=== PATIENT | female | born 1935 | race Caucasian/White ===

== ENCOUNTER 2016-05-28 00:50 | Inpatient (IN) | payer OTHER ==
--- NOTE | 2016-05-28 03:23 | PDOC ---
History of Present Illness - General History Source: Patient, Family Exam Limitations: Clinical Condition - History of Present Illness Initial Comments: 05/28/16 04:46 The patient is a 80-year-old female, with a significant past medical history of anxiety, hypertension, hyperlipidemia, Afib(on eliquis), renal insufficiency, UTIs, bakers cyst of knee, and severe arthritis who presents to the emergency department with her son, complaining of generalized weakness for several days. As per son, the patient is prone to UTIs, and her weakness today is similar to that of when she had a UTI approximately 2 years ago. He states the patient has been experiencing flank pain for 3-4 days, which is exacerbated when she needs to urinate, and relieved after urination. The patient denies any associated frequency, urgency, hematuria, or cloudy urine. The son reports the patient was using the bathroom when she fell off her high seat, but was unable to get up on her own. The son denies the patient experienced any head trauma or LOC. As per son, the patient has been having difficulty standing due to osteoarthritis. He reports he has noticed she has been experiencing decreased appetite. The patient reports she is cold, but is warm to touch. In the ED her Tmax is 100.3F. The patient denies cough, headache, or dizziness. The patient denies any nausea, vomiting, diarrhea, or constipation. The patient denies any chest pain, diaphoresis, palpitations, or shortness of breath. The patient's son reports her facial tremor is part of her baseline. Allergies: Penicillins Past Surgical History: None reported. Social History: Former smoker (Quit 1984). Denies alcohol or drug use. PCP: Dr. Oneal ([phone]) <Faraz Olivares - Last Filed: 05/28/16 06:58> <Beth Mehta - Last Filed: 05/29/16 04:27> - General Chief Complaint: Weakness Stated Complaint: WEAKNESS Time Seen by Provider: 05/28/16 03:22 Past History <Faraz Olivares - Last Filed: 05/28/16 06:58> - Past Medical History Cancer: Yes (rt) Cardiac Disorders: Yes GI Disorders: Yes (sbo) HTN: Yes Hypercholesterolemia: Yes Psychiatric Problems: Yes (anxiety) - Surgical History GI Surgery: Yes (resection) - Immunization History Immunization Up to Date: Yes - Psycho/Social/Smoking Cessation Hx Anxiety: No Suicidal Ideation: No Smoking History: Never smoked Have you smoked in the past 12 months: No If you are a former smoker, when did you quit?: 1984 Information on smoking cessation initiated: No Hx Alcohol Use: No Drug/Substance Use Hx: No Substance Use Type: None <Beth Mehta - Last Filed: 05/29/16 04:27> - Past Medical History Allergies/Adverse Reactions: Allergies Allergy/AdvReac Type Severity Reaction Status Date / Time Penicillins Allergy Verified 05/28/16 01:05 Home Medications: Ambulatory Orders Diazepam [Valium] 2 mg PO TID PRN 01/26/14 Acetaminophen [Tylenol Extra Strength] 1,000 mg PO BID PRN 01/11/15 Clonidine HCl [Catapres -] 0.1 mg PO BID 01/11/15 Rosuvastatin [Crestor -] 5 mg PO DAILY 01/11/15 Digoxin [Lanoxin -] 0.125 mg PO DAILY tablet 01/16/15 Magnesium Oxide [Mag-Ox -] 400 mg PO BID tablet 01/16/15 Metoprolol Succinate [Toprol XL -] 50 mg PO DAILY tab.sr.24h 01/16/15 Multivitamins [Multivit ([facility] Formulary)] 1 tab PO DAILY tab 01/16/15 Apixaban [Eliquis] 2.5 mg PO BID 05/28/16 Citalopram Hydrobromide [Celexa -] 10 mg PO DAILY 05/28/16 Clonazepam [Klonopin -] 0.5 mg PO TID 05/28/16 Clonidine HCl 0.1 mg PO BID 05/28/16 Review of Systems - Review of Systems Able to Perform ROS?: Yes Comments:: 05/28/16 04:47 GENERAL/CONSTITUTIONAL: +Fever, +chills +weakness. HEAD, EYES, EARS, NOSE AND THROAT: No change in vision. No ear pain or discharge. No sore throat. CARDIOVASCULAR: No chest pain or shortness of breath. RESPIRATORY: No cough, wheezing, or hemoptysis. GASTROINTESTINAL: No nausea, vomiting, diarrhea or constipation. GENITOURINARY: +Flank pain. No dysuria, frequency, or change in urination. MUSCULOSKELETAL: No joint or muscle swelling or pain. No neck or back pain. SKIN: No rash NEUROLOGIC: +Difficulty walking. No headache, vertigo, or loss of consciousness. ENDOCRINE: No increased thirst. No abnormal weight change. HEMATOLOGIC/LYMPHATIC: No anemia, easy bleeding, or history of blood clots. ALLERGIC/IMMUNOLOGIC: No hives or skin allergy. <Faraz Olivares - Last Filed: 05/28/16 06:58> *Physical Exam - Vital Signs Last Vital Signs Temp Pulse Resp BP Pulse Ox 100.3 F H 83 14 112/48 94 L 05/28/16 03:44 05/28/16 01:05 05/28/16 01:05 05/28/16 01:05 05/28/16 01:05 - Physical Exam Comments: 05/28/16 04:58 GENERAL: Awake, alert, and fully oriented, in no acute distress HEAD: +Oscillatory jaw tremor. No signs of trauma EYES: PERRLA, EOMI, sclera anicteric, conjunctiva clear ENT: Auricles normal inspection, hearing grossly normal, nares patent, oropharynx clear without exudates. Moist mucosa NECK: Normal ROM, supple, no lymphadenopathy, JVD, or masses LUNGS: Breath sounds equal, clear to auscultation bilaterally. No wheezes, and no crackles HEART: Regular rate and rhythm, normal S1 and S2, no murmurs, rubs or gallops ABDOMEN: +Stool in belly. Nontender. No guarding, no rebound. No masses EXTREMITIES: +Left lower leg cellulitis. Bilateral pitting edema in the legs up to the calves. +Severe osteoarthritis in the knees bilaterally. No clubbing or cyanosis. NEUROLOGICAL: Cranial nerves II through XII grossly intact. Normal speech, normal gait SKIN: Warm, Dry, normal turgor, no rashes or lesions noted. <Faraz Olivares - Last Filed: 05/28/16 06:58> - Vital Signs Last Vital Signs Temp Pulse Resp BP Pulse Ox 98.7 F 83 14 112/48 94 L 05/28/16 01:05 05/28/16 01:05 05/28/16 01:05 05/28/16 01:05 05/28/16 01:05 <Beth Mehta - Last Filed: 05/29/16 04:27> Heart Score/ECG Review - ECG Impressions Comment:: 05/28/16 06:58 Vent Rate: 90 bpm IMPRESSION: Undetermined sinus rhythm. Possible anterior infarct. <Faraz Olivares - Last Filed: 05/28/16 06:58> ED Treatment Course - LABORATORY CBC & Chemistry Diagram: 05/28/16 03:20 05/28/16 03:20 - ADDITIONAL ORDERS Additional order review: Laboratory Results 05/28/16 03:20 Urine Color Yellow Urine Appearance Clear Urine pH 5.0 Ur Specific [place] 1.020 Urine Protein 1+ H Urine Glucose (UA) Negative Urine Ketones Negative Urine Blood 1+ H Urine Nitrite Negative Urine Bilirubin Negative Urine Urobilinogen Negative Ur Leukocyte Esterase Negative 05/28/16 03:20 RBC 3.41 L MCV 89.2 MCHC 32.5 RDW 13.9 MPV 8.2 Neutrophils % 88.6 H D Lymphocytes % 4.8 L D Monocytes % 6.3 Eosinophils % 0.1 D Basophils % 0.2 <Faraz Olivares - Last Filed: 05/28/16 06:58> - LABORATORY CBC & Chemistry Diagram: 05/28/16 03:20 05/28/16 03:20 <Beth Mehta - Last Filed: 05/29/16 04:27> Medical Decision Making - Medical Decision Making 05/28/16 05:13 First call placed to Dr. Oneal at 05:12. Case discussed with Dr. Oneal 05:14. <Faraz Olivares - Last Filed: 05/28/16 06:58> - Medical Decision Making 05/29/16 04:24 Pt comes with inability to get up and ambulate. When she gets like this, her son states that she usually has a UTI or other infection that knocks her down. Pt feels low grade febrile. She has 3rd spacing and pitting edema of her legs and her left leg is cellulitic and hot and erythematous. She has no other complaints. Her urine is clean. We placed a vasuqes catheter to get the urine culture specimen and to keep her comfortable in bed, as she is unable to get up and walk. Pt will be admitted to her PMD. <Beth Mehta - Last Filed: 05/29/16 04:27> *DC/Admit/Observation/Transfer - Attestations Scribe Attestion: 05/28/16 04:47 Documentation prepared by Faraz Olivares, acting as medical coding specialist for Beth Mehta MD. <Faraz Olivares - Last Filed: 05/28/16 06:58> - Discharge Dispostion Admit: Yes <Beth Mehta - Last Filed: 05/29/16 04:27> Diagnosis at time of Disposition: Cellulitis, Fever, Gait difficulty, Generalized weakness, Dehydration - Referrals
[2016-05-28 03:42] LABS: BASOPHIL 0.2 % (0-2.0); EOSINOPHIL 0.1 % (0-4.5); MCHC 32.5 g/dl (32.0-36.0); MEAN CELL VOLUME 89.2 fl (80-96); MEAN PLT VOLUME 8.2 fl (7.5-11.1); NEUTROPHILS 88.6 % (42.8-82.8); PLATELET COUNT 284 K/MM3 (134-434); RDW 13.9 % (11.6-15.6); WHITE BLOOD COUNT 17.2 K/mm3 (4.0-10.0)
[2016-05-28 03:46] LABS: URINE APPEARANCE CLEAR; URINE BILIRUBIN NEGATIVE (NEGATIVE); URINE COLOR YELLOW; URINE GLUCOSE (UA) NEGATIVE (NEGATIVE); URINE KETONE NEGATIVE (NEGATIVE); URINE LEUK ESTERASE NEGATIVE (NEGATIVE); URINE NITRITE NEGATIVE (NEGATIVE); URINE UROBILINOGEN NEGATIVE E.U./dl (0.2-1.0)
[2016-05-28 03:48] LABS: URINE BLOOD 1+ (NEGATIVE); URINE PROTEIN 1+ (NEGATIVE)
[2016-05-28 04:04] LABS: ALBUMIN 2.8 g/dl (3.4-5.0); ANION GAP 12 (8-16); BILIRUBIN,TOTAL 0.3 mg/dL (0.2-1.0); CALCIUM 8.3 mg/dL (8.5-10.1); CO2 28 mmol/L (21-32); CREATININE 1.4 mg/dL (0.55-1.02); GLUCOSE,RANDOM 105 mg/dL (74-106); SGOT/AST 29 U/L (15-37); SGPT/ALT 34 U/L (12-78); TOT PROT 6.5 g/dl (6.4-8.2)
[2016-05-28 04:16] LABS: ALK PHOS 81 U/L (45-117); DIGOXIN LEVEL 1.6635 ng/ml (0.8-2.0)
[2016-05-28 04:41] LABS: URINE MUCUS RARE; URINE RBC 7 /hpf (0-3); URINE WBC 2 /hpf (3-5)
[2016-05-28] MEDS ORDERED: SODIUM CHLORIDE 0.9% 500 ML INFUS.BAG IV ONE (04:48)
[2016-05-28] MEDS ORDERED: LEVOFLOXACIN 500 MG IVPB 100 ML IVPB ONE ×2 (04:48→04:57)
[2016-05-28 05:20] LABS: TROPONIN I < 0.02 ng/ml (0.00-0.05)
[2016-05-28] MEDS ORDERED: diazePAM 2 MG TABLET PO PRN (06:44)
[2016-05-28] MEDS: clonazePAM 0.5 MG TABLET PO SCH ×3 (07:03→21:10)
[2016-05-28] MEDS ORDERED: clonazePAM 0.5 MG TABLET ONE (07:05)
[2016-05-28] MEDS ORDERED: VANCOMYCIN 1,000 MG in DEXTROSE 5%-WATER - 250 ML IVPB SCH (09:30)
--- NOTE | 2016-05-28 09:35 | PN ---
Progress Note (short form) - Note Progress Note: ID Consult dictated Cellulitis L LE UTI/ possible sepsis secondary to UTI Leukocytosis Azotemia PCN allergy Pending c/s empiric levaquin/ vancomycin
[2016-05-28] MEDS: DIGOXIN 0.125 MG TABLET (FP) PO SCH (09:46)
[2016-05-28] MEDS ORDERED: CITALOPRAM HYDROBROMIDE 10 MG TABLET (FP) ONE (09:50)
[2016-05-28] MEDS ORDERED: cloNIDine HCL 0.1 MG TABLET ONE (09:50)
[2016-05-28] MEDS ORDERED: METOPROLOL SUCCINATE 50 MG TAB.SR.24H (FP) ONE (09:50)
[2016-05-28] MEDS ORDERED: MAGNESIUM OXIDE 400 MG TABLET (FP) ONE (09:50)
[2016-05-28] MEDS ORDERED: VANCOMYCIN 1 GRAM (PRE-DOCKED) 250 ML IVPB ONE (09:51)
--- NOTE | 2016-05-28 09:51 | HP ---
Admitting History and Physical - Primary Care Physician PCP: Vanessa Oneal - Admission Chief Complaint: FEVER , CHILLS, POOR APPETITE FOR 1 WEEK WITH LOWER EXTREMITY ERYTHEMA. History of Present Illness: 80 Y/O FEMALE WITH HTN, EARLY DEMENTIA, ANXIETY, ATRIAL FIBRILLATION, HERE WITH LOWER EXTREMITY CELLULITIS. History Source: Patient, Family Member - Past Medical History Cardiovascular: Yes: AFIB, HTN Renal/: Yes: UTI (hx of ) - Smoking History Smoking history: Never smoked Have you smoked in the past 12 months: No If you are a former smoker, when did you quit?: 1984 - Alcohol/Substance Use Hx Alcohol Use: No Home Medications - Allergies Allergies/Adverse Reactions: Allergies Allergy/AdvReac Type Severity Reaction Status Date / Time Penicillins Allergy Verified 05/28/16 01:05 - Home Medications Home Medications: Ambulatory Orders Diazepam [Valium] 2 mg PO TID PRN 01/26/14 Acetaminophen [Tylenol Extra Strength] 1,000 mg PO BID PRN 01/11/15 Clonidine HCl [Catapres -] 0.1 mg PO BID 01/11/15 Rosuvastatin [Crestor -] 5 mg PO DAILY 01/11/15 Digoxin [Lanoxin -] 0.125 mg PO DAILY tablet 01/16/15 Magnesium Oxide [Mag-Ox -] 400 mg PO BID tablet 01/16/15 Metoprolol Succinate [Toprol XL -] 50 mg PO DAILY tab.sr.24h 01/16/15 Multivitamins [Multivit ([facility] Formulary)] 1 tab PO DAILY tab 01/16/15 Apixaban [Eliquis] 2.5 mg PO BID 05/28/16 Citalopram Hydrobromide [Celexa -] 10 mg PO DAILY 05/28/16 Clonazepam [Klonopin -] 0.5 mg PO TID 05/28/16 Clonidine HCl 0.1 mg PO BID 05/28/16 Review of Systems - Review of Systems Constitutional: reports: Weakness Eyes: reports: No Symptoms HENT: reports: No Symptoms Neck: reports: No Symptoms Cardiovascular: reports: No Symptoms Respiratory: reports: No Symptoms Gastrointestinal: reports: No Symptoms Genitourinary: reports: Flank Pain Musculoskeletal: reports: Back Pain Integumentary: reports: Erythema Neurological: reports: Pre-Existing Deficit Endocrine: reports: No Symptoms Hematology/Lymphatic: reports: No Symptoms Psychiatric: reports: Anxiety Physical Examination Vital Signs: Vital Signs Temperature 100.3 F H 05/28/16 03:44 Pulse Rate 68 05/28/16 06:50 Respiratory Rate 20 05/28/16 06:50 Blood Pressure 109/63 05/28/16 06:50 O2 Sat by Pulse Oximetry (%) 99 05/28/16 06:50 Constitutional: Yes: Mild Distress Eyes: Yes: WNL HENT: Yes: WNL Neck: Yes: WNL Cardiovascular: Yes: Pulse Irregular Respiratory: Yes: WNL Gastrointestinal: Yes: WNL Renal/: Yes: [place] Present Musculoskeletal: Yes: Muscle Weakness Extremities: Yes: Erythema Edema: Yes Edema: LLE: Trace, RLE: Trace Peripheral Pulses WNL: Yes Integumentary: Yes: Erythema, Rash Wound/Incision: Yes: Open to air Neurological: Yes: WNL ...Motor Strength: LLE, RLE Psychiatric: Yes: Agitated, Other Problem List - Problems (1) Cellulitis Code(s): L03.90 - CELLULITIS, UNSPECIFIED (2) Dehydration Code(s): E86.0 - DEHYDRATION (3) Fever Code(s): R50.9 - FEVER, UNSPECIFIED (4) Gait difficulty Code(s): R26.9 - UNSPECIFIED ABNORMALITIES OF GAIT AND MOBILITY (5) Generalized weakness Code(s): R53.1 - WEAKNESS (6) Anxiety Code(s): F41.9 - ANXIETY DISORDER, UNSPECIFIED (7) Thibodeaux's cyst of knee Code(s): M71.20 - SYNOVIAL CYST OF POPLITEAL SPACE [THIBODEAUX], UNSPECIFIED KNEE Qualifiers: Laterality: left Qualified Code(s): M71.22 - Synovial cyst of popliteal space [Thibodeaux], left knee (8) HTN (hypertension) Code(s): I10 - ESSENTIAL (PRIMARY) HYPERTENSION Assessment/Plan IV ABX PER ID CULTURES PENDING FALL RISK PRECAUTIONS ANXIETY STABLE WITH KLONOPIN CHECK SONO ABDOMEN + BLOOD IN URINE
[2016-05-28] MEDS ORDERED: ACETAMINOPHEN 325 MG TABLET (FP) ONE (10:47)
--- NOTE | 2016-05-28 10:48 | CONS ---
DATE OF CONSULTATION: 05/28/2016 HISTORY OF PRESENT ILLNESS: The patient is an 80-year-old female who is evaluated for cellulitis of the left lower extremity. Patient was seen in the emergency room. Her son was present at the time of the examination. She was brought into the emergency room with complaints of generalized weakness, bilateral flank pain and increased left lower extremity swelling and erythema. She was found on examination to have a cellulitis of the left lower extremity. She was empirically treated with Levaquin. She has a history of penicillin allergy. Patient reports bilateral flank pain for the past 3-4 days, which was exacerbated by micturition. She denies any dysuria or hematuria. She also noted increased swelling and erythema on the left lower extremity. She denies any trauma or fall, no associated fever or chills. PAST MEDICAL HISTORY: Positive for atrial fibrillation, hypertension, hyperlipidemia, anxiety, osteoarthritis, history of cellulitis of the lower extremity. ALLERGIES: To PENICILLIN. Patient was unaware of the nature of the PENICILLIN allergy. MEDICATIONS: Include Tylenol, magnesium, Levaquin, Eliquis, Celexa, Klonopin, Valium, Toprol, Lanoxin, Catapres, Crestor. SOCIAL HISTORY: She lives at home. She had been in a [facility] facility, a nonsmoker/nondrinker. SYSTEMS REVIEW: Neurologic: No loss of consciousness, seizure activity, or focal weakness. Cardiac: Positive for atrial fibrillation. Respiratory: Negative for cough or sputum production. Gastrointestinal: Negative for vomiting or diarrhea. Genitourinary: As per HPI. LABORATORY DATA: White count 17.2, 88 neutrophils, 4 lymphocytes, 6 monocytes, hematocrit 30.5, platelet count 284. Creatinine 1.4. Urinalysis 2 white cells. Chest x-ray negative for acute infiltrate. PHYSICAL EXAMINATION: General: She is awake and response. She is in no acute distress. Vital signs: Temperature 100.3, blood pressure 103/64, pulse 68 and regular, respirations 20 per minute. HEENT: Sclerae anicteric. Heart: Heart sounds irregular S1, S2. Lungs: Clear. No rhonchi, rales, or wheezing. Abdomen: Soft. No tenderness elicited. No mass, rebound, or rigidity. Extremities: Examination of the lower extremity, there is diffuse swelling of the left lower extremity with erythema and warmth present below the knee to the ankle area. There is no crepitus or fluctuance. No lymphangitic streaking. IMPRESSION: 1. Cellulitis, left lower extremity. 2. Urinary tract infection, possible sepsis secondary to urinary tract infection. 3. Leukocytosis. 4. Azotemia. 5. PENICILLIN allergy. Will obtain Doppler examination of the left lower extremity, cultures, empiric antibiotic coverage in this PENICILLIN-allergic patient with vancomycin and Levaquin. Will follow. Thank you for the kind referral. DUSTIN DAS M.D. [id number]
[2016-05-28] MEDS: ACETAMINOPHEN 325 MG TABLET (FP) PO PRN ×2 (10:59→19:40)
[2016-05-28] MEDS: VANCOMYCIN 1 GRAM (PRE-DOCKED) 1,000 MG/250 ML BAG IVPB SCH (10:59)
[2016-05-28] MEDS: CITALOPRAM HYDROBROMIDE 10 MG TABLET (FP) PO SCH (11:01)
[2016-05-28] MEDS: METOPROLOL SUCCINATE 50 MG TAB.SR.24H (FP) PO SCH (11:01)
[2016-05-28] MEDS: cloNIDine HCL 0.1 MG TABLET PO SCH ×2 (11:01→21:09)
[2016-05-28] MEDS: MAGNESIUM OXIDE 400 MG TABLET (FP) PO SCH ×2 (11:01→21:11)
[2016-05-28] MEDS: APIXABAN 2.5 MG TABLET PO SCH ×2 (14:41→22:04)
[2016-05-28] MEDS: MULTIVITAMINS (DAILY MVI) TABLET (FP) PO SCH (14:42)
[2016-05-28 19:03] VITALS: BMI 19.5
[2016-05-28] MEDS: ROSUVASTATIN CA 5 MG TABLET (FP) PO SCH (21:09)
[2016-05-29] MEDS ORDERED: PT OWN MED DRAWER 7, Y5N ONE ×3 (01:38→21:19)
[2016-05-29] MEDS: ACETAMINOPHEN 325 MG TABLET (FP) PO PRN ×2 (03:41→14:47)
[2016-05-29] MEDS: clonazePAM 0.5 MG TABLET PO SCH ×3 (06:04→22:54)
[2016-05-29] MEDS: LEVOFLOXACIN 250 MG IVPB 50 ML IVPB SCH (06:04)
[2016-05-29 07:26] LABS: MCHC 32.5 g/dl (32.0-36.0); MEAN CELL VOLUME 89.5 fl (80-96); MEAN PLT VOLUME 7.7 fl (7.5-11.1); PLATELET COUNT 272 K/MM3 (134-434); RDW 13.9 % (11.6-15.6); WHITE BLOOD COUNT 16.3 K/mm3 (4.0-10.0)
[2016-05-29 08:13] LABS: ALBUMIN 2.3 g/dl (3.4-5.0); CALCIUM 7.8 mg/dL (8.5-10.1)
[2016-05-29 08:17] LABS: BILIRUBIN,TOTAL 0.3 mg/dL (0.2-1.0); CREATININE 1.1 mg/dL (0.55-1.02); TOT PROT 5.6 g/dl (6.4-8.2)
[2016-05-29] MEDS: VANCOMYCIN 1 GRAM (PRE-DOCKED) 1,000 MG/250 ML BAG IVPB SCH (09:07)
[2016-05-29] MEDS: CITALOPRAM HYDROBROMIDE 10 MG TABLET (FP) PO SCH (09:07)
[2016-05-29] MEDS: MULTIVITAMINS (DAILY MVI) TABLET (FP) PO SCH (09:07)
[2016-05-29] MEDS: APIXABAN 2.5 MG TABLET PO SCH ×2 (09:07→22:54)
[2016-05-29] MEDS: cloNIDine HCL 0.1 MG TABLET PO SCH ×2 (09:07→22:54)
[2016-05-29] MEDS: MAGNESIUM OXIDE 400 MG TABLET (FP) PO SCH ×2 (09:08→22:54)
[2016-05-29] MEDS: METOPROLOL SUCCINATE 50 MG TAB.SR.24H (FP) PO SCH (09:08)
[2016-05-29] MEDS: DIGOXIN 0.125 MG TABLET (FP) PO SCH (09:08)
--- NOTE | 2016-05-29 10:12 | PN ---
Progress Note, Physician Chief Complaint: ID ALert NAD Vancomycin and Levofloxacin day 1 therapy - Current Medication List Current Medications: Active Medications Acetaminophen (Tylenol -) 650 mg PO Q6H PRN PRN Reason: FEVER OR PAIN Last Admin: 05/29/16 03:41 Dose: 650 mg Apixaban (Eliquis -) 2.5 mg PO BID [facility] [place] Last Admin: 05/29/16 09:07 Dose: 2.5 mg Citalopram Hydrobromide (Celexa -) 10 mg PO DAILY [facility] [place] Last Admin: 05/29/16 09:07 Dose: 10 mg Clonazepam (Klonopin -) 0.5 mg PO TID [facility] [place] Stop: 06/07/16 06:44 Last Admin: 05/29/16 06:04 Dose: 0.5 mg Clonidine (Catapres -) 0.1 mg PO BID [facility] [place] Last Admin: 05/29/16 09:07 Dose: 0.1 mg Diazepam (Valium -) 2 mg PO Q8H PRN PRN Reason: WITHDRAWAL(CONT SUBST) Stop: 05/31/16 06:45 Digoxin (Lanoxin -) 0.125 mg PO DAILY [facility] [place] Last Admin: 05/29/16 09:08 Dose: 0.125 mg Levofloxacin (Levaquin 250 Mg Premixed Ivpb -) 50 mls @ 50 mls/hr IVPB DAILY [facility] [place] Last Admin: 05/29/16 06:04 Dose: 50 mls/hr Magnesium Oxide (Mag-Ox -) 400 mg PO BID [facility] [place] Last Admin: 05/29/16 09:08 Dose: 400 mg Metoprolol Succinate (Toprol Xl -) 50 mg PO DAILY [facility] [place] Last Admin: 05/29/16 09:08 Dose: 50 mg Multivitamins/Minerals/Vitamin C (Tab-A-Vit -) 1 tab PO DAILY [facility] [place] Last Admin: 05/29/16 09:07 Dose: 1 tab Rosuvastatin Calcium (Crestor -) 5 mg PO HS [facility] [place] Last Admin: 05/28/16 21:09 Dose: 5 mg Vancomycin HCl (Vancomycin (Pre-Docked)) 1,000 mg IVPB Q24H [facility] [place] Last Admin: 05/29/16 09:07 Dose: 1,000 mg - Objective Vital Signs: Vital Signs Temperature 98.5 F 05/29/16 09:11 Pulse Rate 75 05/29/16 09:11 Respiratory Rate 20 05/29/16 09:11 Blood Pressure 136/63 05/29/16 09:11 O2 Sat by Pulse Oximetry (%) 96 05/28/16 21:06 Constitutional: Yes: No Distress Neck: Yes: WNL, Supple Cardiovascular: Yes: Regular Rate and Rhythm, S1, S2 Respiratory: Yes: WNL, Regular, CTA Bilaterally Gastrointestinal: Yes: Soft. No: Tenderness Edema: Yes Labs: CBC, BMP 05/29/16 06:00 05/29/16 06:00 Assessment/Plan Microbiology Laboratory Tests 05/28/16 05/29/16 05/29/16 12:58 06:00 06:00 WBC 16.3 H Hgb 9.4 L Plt Count 272 ESR 126 H BUN 19 H D Creatinine 1.1 H D Assessment Fever leukocytosis unclear etiology but cultures are pending Left leg pain from Bakers cyst ESR 126 Plan Await cultures Continue antibiotics at least for today [place] [facility]
--- NOTE | 2016-05-29 13:09 | PN ---
Progress Note, Physician Chief Complaint: AWAKE ALERT +ANXIETY DENIES FEVER OR CHILLS - Current Medication List Current Medications: Active Medications Acetaminophen (Tylenol -) 650 mg PO Q6H PRN PRN Reason: FEVER OR PAIN Last Admin: 05/29/16 03:41 Dose: 650 mg Apixaban (Eliquis -) 2.5 mg PO BID [facility] Last Admin: 05/29/16 09:07 Dose: 2.5 mg Citalopram Hydrobromide (Celexa -) 10 mg PO DAILY [facility] Last Admin: 05/29/16 09:07 Dose: 10 mg Clonazepam (Klonopin -) 0.5 mg PO TID [facility] Stop: 06/07/16 06:44 Last Admin: 05/29/16 06:04 Dose: 0.5 mg Clonidine (Catapres -) 0.1 mg PO BID [facility] Last Admin: 05/29/16 09:07 Dose: 0.1 mg Diazepam (Valium -) 2 mg PO Q8H PRN PRN Reason: WITHDRAWAL(CONT SUBST) Stop: 05/31/16 06:45 Digoxin (Lanoxin -) 0.125 mg PO DAILY [facility] Last Admin: 05/29/16 09:08 Dose: 0.125 mg Levofloxacin (Levaquin 250 Mg Premixed Ivpb -) 50 mls @ 50 mls/hr IVPB DAILY [facility] Last Admin: 05/29/16 06:04 Dose: 50 mls/hr Magnesium Oxide (Mag-Ox -) 400 mg PO BID [facility] Last Admin: 05/29/16 09:08 Dose: 400 mg Metoprolol Succinate (Toprol Xl -) 50 mg PO DAILY [facility] Last Admin: 05/29/16 09:08 Dose: 50 mg Multivitamins/Minerals/Vitamin C (Tab-A-Vit -) 1 tab PO DAILY [facility] Last Admin: 05/29/16 09:07 Dose: 1 tab Rosuvastatin Calcium (Crestor -) 5 mg PO HS [facility] Last Admin: 05/28/16 21:09 Dose: 5 mg Vancomycin HCl (Vancomycin (Pre-Docked)) 1,000 mg IVPB Q24H [facility] Last Admin: 05/29/16 09:07 Dose: 1,000 mg - Objective Vital Signs: Vital Signs Temperature 98.5 F 05/29/16 09:11 Pulse Rate 75 05/29/16 09:11 Respiratory Rate 20 05/29/16 09:11 Blood Pressure 136/63 05/29/16 09:11 O2 Sat by Pulse Oximetry (%) 99 05/29/16 09:00 Constitutional: Yes: Mild Distress Eyes: Yes: WNL HENT: Yes: WNL Neck: Yes: WNL Cardiovascular: Yes: Pulse Irregular Respiratory: Yes: WNL Gastrointestinal: Yes: WNL Genitourinary: Yes: [place] Present Musculoskeletal: Yes: Muscle Weakness Extremities: Yes: Erythema Edema: Yes Edema: LLE: Trace, RLE: Trace Peripheral Pulses WNL: Yes Integumentary: Yes: Erythema Wound/Incision: Yes: Open to air Neurological: Yes: Pre-Existing Deficit, Unsteady Gait ...Motor Strength: LLE, RLE Psychiatric: Yes: Other Labs: CBC, BMP 05/29/16 06:00 05/29/16 06:00 Problem List - Problems (1) Cellulitis Code(s): L03.90 - CELLULITIS, UNSPECIFIED (2) Dehydration Code(s): E86.0 - DEHYDRATION (3) Fever Code(s): R50.9 - FEVER, UNSPECIFIED (4) Gait difficulty Code(s): R26.9 - UNSPECIFIED ABNORMALITIES OF GAIT AND MOBILITY (5) Generalized weakness Code(s): R53.1 - WEAKNESS (6) Anxiety Code(s): F41.9 - ANXIETY DISORDER, UNSPECIFIED (7) Thibodeaux's cyst of knee Code(s): M71.20 - SYNOVIAL CYST OF POPLITEAL SPACE [THIBODEAUX], UNSPECIFIED KNEE Qualifiers: Laterality: left Qualified Code(s): M71.22 - Synovial cyst of popliteal space [Thibodeaux], left knee (8) HTN (hypertension) Code(s): I10 - ESSENTIAL (PRIMARY) HYPERTENSION Assessment/Plan IV ABX CONTINUE KLONOPIN PRN OOB TO CHAIR PT LISANDRO SINGH TODAY DC IN AM
[2016-05-29] MEDS: ROSUVASTATIN CA 5 MG TABLET (FP) PO SCH (22:54)
--- NOTE | 2016-05-29 23:41 | EKG ---
Test Reason : Blood Pressure : / mmHG Vent. Rate : 090 BPM Atrial Rate : 086 BPM P-R Int : 000 ms QRS Dur : 078 ms QT Int : 340 ms P-R-T Axes : 000 062 063 degrees QTc Int : 415 ms UNDETERMINED RHYTHM POSSIBLE ANTERIOR INFARCT , AGE UNDETERMINED ABNORMAL ECG WHEN COMPARED WITH ECG OF 13-JAN-2015 13:28, SOME OF BEATS APPEAR TO BE SINUS WITH PROBABLE APCS Confirmed by AGUSTO LYLE MD ([id number]) on 05/29/2016 11:41:16 PM Referred By: Confirmed By:AGUSTO LYLE MD
[2016-05-30] MEDS: clonazePAM 0.5 MG TABLET PO SCH ×3 (06:04→21:38)
[2016-05-30] MEDS ORDERED: PT OWN MED DRAWER 7, Y5N ONE (09:44)
[2016-05-30] MEDS: VANCOMYCIN 1 GRAM (PRE-DOCKED) 1,000 MG/250 ML BAG IVPB SCH (09:55)
--- NOTE | 2016-05-30 10:00 | PN ---
Progress Note, Physician Chief Complaint: ID Seems to be doing better No fever now but 101.6 overnight Appears comfortable - Current Medication List Current Medications: Active Medications Acetaminophen (Tylenol -) 650 mg PO Q6H PRN PRN Reason: FEVER OR PAIN Last Admin: 05/29/16 14:47 Dose: 650 mg Apixaban (Eliquis -) 2.5 mg PO BID [facility] Last Admin: 05/29/16 22:54 Dose: 2.5 mg Citalopram Hydrobromide (Celexa -) 10 mg PO DAILY [facility] Last Admin: 05/29/16 09:07 Dose: 10 mg Clonazepam (Klonopin -) 0.5 mg PO TID [facility] Stop: 06/07/16 06:44 Last Admin: 05/30/16 06:04 Dose: 0.5 mg Clonidine (Catapres -) 0.1 mg PO BID [facility] Last Admin: 05/29/16 22:54 Dose: 0.1 mg Digoxin (Lanoxin -) 0.125 mg PO DAILY [facility] Last Admin: 05/29/16 09:08 Dose: 0.125 mg Levofloxacin (Levaquin 250 Mg Premixed Ivpb -) 50 mls @ 50 mls/hr IVPB DAILY [facility] Last Admin: 05/29/16 06:04 Dose: 50 mls/hr Magnesium Oxide (Mag-Ox -) 400 mg PO BID [facility] Last Admin: 05/29/16 22:54 Dose: 400 mg Metoprolol Succinate (Toprol Xl -) 50 mg PO DAILY [facility] Last Admin: 05/29/16 09:08 Dose: 50 mg Multivitamins/Minerals/Vitamin C (Tab-A-Vit -) 1 tab PO DAILY [facility] Last Admin: 05/29/16 09:07 Dose: 1 tab Rosuvastatin Calcium (Crestor -) 5 mg PO HS [facility] Last Admin: 05/29/16 22:54 Dose: 5 mg Vancomycin HCl (Vancomycin (Pre-Docked)) 1,000 mg IVPB Q24H [facility] Last Admin: 05/29/16 09:07 Dose: 1,000 mg - Objective Vital Signs: Vital Signs Temperature 98.2 F 05/30/16 05:31 Pulse Rate 69 05/30/16 05:31 Respiratory Rate 20 05/30/16 05:31 Blood Pressure 136/62 05/30/16 05:31 O2 Sat by Pulse Oximetry (%) 99 01/22/17 21:00 Constitutional: Yes: No Distress HENT: Yes: WNL, Atraumatic Neck: Yes: WNL, Supple Cardiovascular: Yes: Regular Rate and Rhythm, S1, S2. No: Murmur Respiratory: Yes: WNL, Regular, CTA Bilaterally Gastrointestinal: Yes: WNL, Normal Bowel Sounds, Soft. No: Tenderness, Tenderness, Epigastrium Extremities: Yes: Other (Left leg is swollen but not tender and erythema appears to bhave subsided No post knee pain) Labs: CBC, BMP 05/29/16 06:00 05/29/16 06:00 Assessment/Plan Microbiology 05/28/16 03:20 Urine - Urine [place] Urine Culture - Final NO GROWTH OBTAINED 05/28/16 11:45 Blood - Peripheral Venous Blood Culture - Preliminary NO GROWTH OBTAINED AFTER 24 HOURS, INCUBATION TO CONTINUE FOR 4 DAYS. Laboratory Tests 05/28/16 05/28/16 05/29/16 03:20 12:58 06:00 WBC 17.2 H D 16.3 H ESR 126 H BUN Creatinine Creat Clearance w eGFR Total Bilirubin ALT 05/29/16 06:00 WBC ESR BUN 19 H D Creatinine 1.1 H D Creat Clearance w eGFR 47.55 Total Bilirubin 0.3 ALT 27 D Assessment Working diagnosis is LLE cellulitis with incidental finding of Bakers cyst. febrile overnight 101.6 Negative cultures and chest xray. Plan Substitiute Cefazolin ( remote history of unknown PCN reaction) Moniter fever and WBC count ESR high ? related to fever [place] [facility]
[2016-05-30] MEDS: CITALOPRAM HYDROBROMIDE 10 MG TABLET (FP) PO SCH (10:01)
[2016-05-30] MEDS: cloNIDine HCL 0.1 MG TABLET PO SCH ×2 (10:02→21:36)
[2016-05-30] MEDS: APIXABAN 2.5 MG TABLET PO SCH ×2 (10:03→21:38)
[2016-05-30] MEDS: DIGOXIN 0.125 MG TABLET (FP) PO SCH (10:03)
[2016-05-30] MEDS: MAGNESIUM OXIDE 400 MG TABLET (FP) PO SCH ×2 (10:03→21:39)
[2016-05-30] MEDS: METOPROLOL SUCCINATE 50 MG TAB.SR.24H (FP) PO SCH (10:03)
[2016-05-30] MEDS: MULTIVITAMINS (DAILY MVI) TABLET (FP) PO SCH (10:04)
[2016-05-30] MEDS: LEVOFLOXACIN 250 MG IVPB 50 ML IVPB SCH (10:06)
--- NOTE | 2016-05-30 10:33 | PN ---
Progress Note, Physician Chief Complaint: CALM NO COMPLAINTS - Current Medication List Current Medications: Active Medications Acetaminophen (Tylenol -) 650 mg PO Q6H PRN PRN Reason: FEVER OR PAIN Last Admin: 05/29/16 14:47 Dose: 650 mg Apixaban (Eliquis -) 2.5 mg PO BID [facility] Last Admin: 05/30/16 10:03 Dose: 2.5 mg Citalopram Hydrobromide (Celexa -) 10 mg PO DAILY [facility] Last Admin: 05/30/16 10:01 Dose: 10 mg Clonazepam (Klonopin -) 0.5 mg PO TID [facility] Stop: 06/07/16 06:44 Last Admin: 05/30/16 06:04 Dose: 0.5 mg Clonidine (Catapres -) 0.1 mg PO BID [facility] Last Admin: 05/30/16 10:02 Dose: 0.1 mg Digoxin (Lanoxin -) 0.125 mg PO DAILY [facility] Last Admin: 05/30/16 10:03 Dose: 0.125 mg Cefazolin Sodium 1 gm/ (Dextrose) 50 mls @ 100 mls/hr IVPB Q8H-IV [facility] Magnesium Oxide (Mag-Ox -) 400 mg PO BID [facility] Last Admin: 05/30/16 10:03 Dose: 400 mg Metoprolol Succinate (Toprol Xl -) 50 mg PO DAILY [facility] Last Admin: 05/30/16 10:03 Dose: 50 mg Multivitamins/Minerals/Vitamin C (Tab-A-Vit -) 1 tab PO DAILY [facility] Last Admin: 05/30/16 10:04 Dose: 1 tab Rosuvastatin Calcium (Crestor -) 5 mg PO HS [facility] Last Admin: 05/29/16 22:54 Dose: 5 mg - Objective Vital Signs: Vital Signs Temperature 99.7 F H 05/30/16 10:00 Pulse Rate 83 05/30/16 10:03 Respiratory Rate 18 05/30/16 10:00 Blood Pressure 137/90 05/30/16 10:00 O2 Sat by Pulse Oximetry (%) 99 05/29/16 21:00 Constitutional: Yes: Calm Cardiovascular: Yes: Regular Rate and Rhythm, S1, S2 Respiratory: Yes: CTA Bilaterally Gastrointestinal: Yes: Normal Bowel Sounds, Soft Edema: Yes (LLE CALF TENDER TO PALPAT) Integumentary: Yes: Erythema Labs: CBC, BMP 05/29/16 06:00 05/29/16 06:00 Problem List - Problems (1) Cellulitis Code(s): L03.90 - CELLULITIS, UNSPECIFIED (2) Dehydration Code(s): E86.0 - DEHYDRATION (3) Fever Code(s): R50.9 - FEVER, UNSPECIFIED (4) Gait difficulty Code(s): R26.9 - UNSPECIFIED ABNORMALITIES OF GAIT AND MOBILITY (5) Generalized weakness Code(s): R53.1 - WEAKNESS (6) Anxiety Code(s): F41.9 - ANXIETY DISORDER, UNSPECIFIED (7) HTN (hypertension) Code(s): I10 - ESSENTIAL (PRIMARY) HYPERTENSION Assessment/Plan (1) Cellulitis Code(s): L03.90 - CELLULITIS, UNSPECIFIED IV ABX CONTINUE APPRECIATE ID CONSULT MONITOR NO LLE DVT (2) Dehydration Code(s): E86.0 - DEHYDRATION SINGH TODAY DC IN AM (3) Fever Code(s): R50.9 - FEVER, UNSPECIFIED ESR 130 -> MONITOR (4) Gait difficulty Code(s): R26.9 - UNSPECIFIED ABNORMALITIES OF GAIT AND MOBILITY OOB TO CHAIR PT EVAL (5) Generalized weakness Code(s): R53.1 - WEAKNESS (6) Anxiety Code(s): F41.9 - ANXIETY DISORDER, UNSPECIFIED KLONOPIN PRN (7) Thibodeaux's cyst of knee Code(s): M71.20 - SYNOVIAL CYST OF POPLITEAL SPACE [THIBODEAUX], UNSPECIFIED KNEE Qualifiers: Laterality: left Qualified Code(s): M71.22 - Synovial cyst of popliteal space [Thibodeaux], left knee (8) HTN (hypertension) Code(s): I10 - ESSENTIAL (PRIMARY) HYPERTENSION [facility]
[2016-05-30] MEDS: CEFAZOLIN 1 GM/D5W 50 ML IVPB SCH ×2 (12:18→17:35)
--- NOTE | 2016-05-30 12:53 | CONSULT ---
Admitting History and Physical - Primary Care Physician PCP: Vanessa Oneal - Admission History of Present Illness: Per EMR: "Initial Comments: 05/28/16 04:46 The patient is a 80-year-old female, with a significant past medical history of anxiety, hypertension, hyperlipidemia, Afib(on eliquis), renal insufficiency, UTIs, bakers cyst of knee, and severe arthritis who presents to the emergency department with her son, complaining of generalized weakness for several days. As per son, the patient is prone to UTIs, and her weakness today is similar to that of when she had a UTI approximately 2 years ago. He states the patient has been experiencing flank pain for 3-4 days, which is exacerbated when she needs to urinate, and relieved after urination. The patient denies any associated frequency, urgency, hematuria, or cloudy urine. The son reports the patient was using the bathroom when she fell off her high seat, but was unable to get up on her own. The son denies the patient experienced any head trauma or LOC. As per son, the patient has been having difficulty standing due to osteoarthritis. He reports he has noticed she has been experiencing decreased appetite. The patient reports she is cold, but is warm to touch. In the ED her Tmax is 100.3F. The patient denies cough, headache, or dizziness. The patient denies any nausea, vomiting, diarrhea, or constipation. The patient denies any chest pain, diaphoresis, palpitations, or shortness of breath. The patient's son reports her facial tremor is part of her baseline". History Source: Patient (Sleepy. Needed much encouragement to open eyes.c/o feeling sleepy. Initially disoriented but once fully aroused, o x 3.) - Past Medical History Cardiovascular: Yes: AFIB, HTN Renal/: Yes: UTI (hx of ) ...: No - Advance Directives Advance Directives: Yes: Health Care Proxy - Smoking History Smoking history: Never smoked Have you smoked in the past 12 months: No If you are a former smoker, when did you quit?: 1984 - Alcohol/Substance Use Hx Alcohol Use: No - Social History Usual Living Arrangement: Yes: With Child History - Admission Reason For Visit: CELLULITIS,FEVER,GAIT DIFFICULTY - Diagnostics X-ray: Report Reviewed - General Mental Status: Alert and Oriented, Awake and Alert, Able to Follow Commands, Lethargic (arousable) Ability to Follow Directions: Good Head/Neck Control: WFL - Hearing Hearing: Functional Hearing Aide: No Speech Evaluation - Communication Primary Language: BELARUSIAN Communication: Yes: Within Normal Limits - Speech Production Able to Make Needs Known: Yes: WNL Intelligibility: Yes: WNL - Speech Characteristics Voice Loudness: Normal Voice Pitch: Yes: Normal Voice Phonatory-based Quality: Yes: Normal Speech Pattern: Normal Speech Clarity: < 100% Nasal Resonance: Normal Articulation: Yes: Precise Rate of Speech: Intact - Language/Auditory Comprehension Follows: Yes: 2 Stage Simple Commands - Language/Verbal Expression Able to Respond to Simple Queries: Yes: WNL Able to Communicate Wants and Needs: Yes: WNL Functional Communication Status: Yes: WNL - Swallow Evaluation/Bedside Assessment Current Nutritional Intake: Regular, Thin Liquids Oral Secretions: Yes: WFL Dentition: Yes: Missing Teeth (only a few anterior teeth) Facial Symmetry at Rest: Symmetrical Facial Symmetry on Retraction: Symmetrical Facial Movement: Controlled Sensation: Normal Against Resistance Opening: Normal Against Resistance Closing: Normal Pucker Lips: Normal Smile: Normal Lingual Movement: Normal Lingual Speed of Movement: Normal Lingual Movement Strgth Against Opposition: Normal Lingual Movement Characteristics: Normal Velopharyngeal Movement: Normal Laryngeal Elevation: WFL Laryngeal Movement: Able to Palpate Rate of Intake: WFL Bolus Size: WFL Labial Seal: WFL Chewing: WFL (good tolerance of turkey sandwich) Oral Prep Time: WFL A-P Transit: WFL Pocketing: None Timing of Swallow: WFL Coughing/Throat Clear: No Change in Voice: No Recommendations - Speech Evaluation, Impression/Plan Impression: sp/sw/cognition seems intact. c/o feeling sleepy. - Dysphagia Impressions/Plan Dysphagia Impressions: No Impairment, Ongoing Evaluation *Silent aspiration: cannot be R/O at bedside - Recommendations Diet Consistency: Regular (soft) Medication Administration: Whole with water Liquids: Thin Liquids Supplement: Ensure
[2016-05-30] MEDS: ROSUVASTATIN CA 5 MG TABLET (FP) PO SCH (21:37)
[2016-05-31] MEDS: ACETAMINOPHEN 325 MG TABLET (FP) PO PRN ×3 (01:25→21:57)
[2016-05-31] MEDS: CEFAZOLIN 1 GM/D5W 50 ML IVPB SCH ×2 (01:54→09:32)
[2016-05-31] MEDS: clonazePAM 0.5 MG TABLET PO SCH ×3 (06:01→21:17)
[2016-05-31 07:40] LABS: BASOPHIL 0.2 % (0-2.0); EOSINOPHIL 1.2 % (0-4.5); MCH 29.3 pg (25.7-33.7); MCHC 32.9 g/dl (32.0-36.0); MEAN CELL VOLUME 89.1 fl (80-96); MEAN PLT VOLUME 7.5 fl (7.5-11.1); NEUTROPHILS 78.7 % (42.8-82.8); PLATELET COUNT 286 K/MM3 (134-434); RDW 13.6 % (11.6-15.6)
[2016-05-31 08:12] LABS: SGOT/AST 29 U/L (15-37)
[2016-05-31 08:32] LABS: ALBUMIN 2.1 g/dl (3.4-5.0); ANION GAP 9 (8-16); BILIRUBIN,TOTAL 0.3 mg/dL (0.2-1.0); CO2 29 mmol/L (21-32); CREATININE 1.2 mg/dL (0.55-1.02); GLUCOSE,RANDOM 90 mg/dL (74-106); SGPT/ALT 23 U/L (12-78); TOT PROT 5.3 g/dl (6.4-8.2)
[2016-05-31 08:34] LABS: ALK PHOS 64 U/L (45-117); TROPONIN I < 0.02 ng/ml (0.00-0.05)
[2016-05-31] MEDS: MAGNESIUM OXIDE 400 MG TABLET (FP) PO SCH ×2 (09:34→21:16)
[2016-05-31] MEDS: MULTIVITAMINS (DAILY MVI) TABLET (FP) PO SCH (09:34)
[2016-05-31] MEDS: cloNIDine HCL 0.1 MG TABLET PO SCH ×2 (09:34→21:17)
[2016-05-31] MEDS: METOPROLOL SUCCINATE 50 MG TAB.SR.24H (FP) PO SCH (09:34)
[2016-05-31] MEDS: DIGOXIN 0.125 MG TABLET (FP) PO SCH (09:34)
[2016-05-31] MEDS: CITALOPRAM HYDROBROMIDE 10 MG TABLET (FP) PO SCH (09:34)
[2016-05-31] MEDS ORDERED: PT OWN MED DRAWER 7, Y5N ONE ×2 (09:37→21:15)
[2016-05-31] MEDS: APIXABAN 2.5 MG TABLET PO SCH ×2 (09:38→21:16)
--- NOTE | 2016-05-31 13:34 | PN ---
Progress Note, Physician History of Present Illness: No c/o leg pain No fever/ chills Temps down-afebrile WBC improved - Current Medication List Current Medications: Active Medications Acetaminophen (Tylenol -) 650 mg PO Q6H PRN PRN Reason: FEVER OR PAIN Last Admin: 05/31/16 01:25 Dose: 650 mg Apixaban (Eliquis -) 2.5 mg PO BID [facility] Last Admin: 05/31/16 09:38 Dose: 2.5 mg Citalopram Hydrobromide (Celexa -) 10 mg PO DAILY [facility] Last Admin: 05/31/16 09:34 Dose: 10 mg Clonazepam (Klonopin -) 0.5 mg PO TID [facility] Stop: 06/07/16 06:44 Last Admin: 05/31/16 06:01 Dose: 0.5 mg Clonidine (Catapres -) 0.1 mg PO BID [facility] Last Admin: 05/31/16 09:34 Dose: 0.1 mg Digoxin (Lanoxin -) 0.125 mg PO DAILY [facility] Last Admin: 05/31/16 09:34 Dose: 0.125 mg Cefazolin Sodium (Ancef 1 Gm Premixed Ivpb -) 50 mls @ 100 mls/hr IVPB Q8H-IV [facility] Last Admin: 05/31/16 09:32 Dose: 100 mls/hr Magnesium Oxide (Mag-Ox -) 400 mg PO BID [facility] Last Admin: 05/31/16 09:34 Dose: 400 mg Metoprolol Succinate (Toprol Xl -) 50 mg PO DAILY [facility] Last Admin: 05/31/16 09:34 Dose: 50 mg Multivitamins/Minerals/Vitamin C (Tab-A-Vit -) 1 tab PO DAILY [facility] Last Admin: 05/31/16 09:34 Dose: 1 tab Rosuvastatin Calcium (Crestor -) 5 mg PO HS [facility] Last Admin: 05/30/16 21:37 Dose: 5 mg - Objective Vital Signs: Vital Signs Temperature 97.9 F 05/31/16 05:14 Pulse Rate 74 05/31/16 09:34 Respiratory Rate 18 05/31/16 05:14 Blood Pressure 117/58 05/31/16 05:14 O2 Sat by Pulse Oximetry (%) 94 L 05/30/16 21:00 Constitutional: Yes: No Distress Eyes: Yes: Conjunctiva Clear Cardiovascular: Yes: Regular Rate and Rhythm, S1, S2 Respiratory: Yes: CTA Bilaterally Gastrointestinal: Yes: Normal Bowel Sounds, Soft. No: Tenderness Extremities: Yes: Other (L LE erythema/ warmth resolved) Labs: CBC, BMP 05/31/16 07:00 05/31/16 07:00 Assessment/Plan L LE cellulitis- resolved Fever/ leukocytosis-improved PCN allergy D/C cefazolin. Observe off.
--- NOTE | 2016-05-31 15:01 | PN ---
Progress Note, Physician Chief Complaint: AWAKE ALERT X 2 NERVOUS H/O ANXIETY FEELING BETTER - Current Medication List Current Medications: Active Medications Acetaminophen (Tylenol -) 650 mg PO Q6H PRN PRN Reason: FEVER OR PAIN Last Admin: 05/31/16 14:03 Dose: 650 mg Apixaban (Eliquis -) 2.5 mg PO BID [facility] Last Admin: 05/31/16 09:38 Dose: 2.5 mg Citalopram Hydrobromide (Celexa -) 10 mg PO DAILY [facility] Last Admin: 05/31/16 09:34 Dose: 10 mg Clonazepam (Klonopin -) 0.5 mg PO TID [facility] Stop: 06/07/16 06:44 Last Admin: 05/31/16 14:03 Dose: 0.5 mg Clonidine (Catapres -) 0.1 mg PO BID [facility] Last Admin: 05/31/16 09:34 Dose: 0.1 mg Digoxin (Lanoxin -) 0.125 mg PO DAILY [facility] Last Admin: 05/31/16 09:34 Dose: 0.125 mg Magnesium Oxide (Mag-Ox -) 400 mg PO BID [facility] Last Admin: 05/31/16 09:34 Dose: 400 mg Metoprolol Succinate (Toprol Xl -) 50 mg PO DAILY [facility] Last Admin: 05/31/16 09:34 Dose: 50 mg Multivitamins/Minerals/Vitamin C (Tab-A-Vit -) 1 tab PO DAILY [facility] Last Admin: 05/31/16 09:34 Dose: 1 tab Rosuvastatin Calcium (Crestor -) 5 mg PO HS [facility] Last Admin: 05/30/16 21:37 Dose: 5 mg - Objective Vital Signs: Vital Signs Temperature 99.0 F 05/31/16 14:50 Pulse Rate 78 05/31/16 14:50 Respiratory Rate 18 05/31/16 14:50 Blood Pressure 134/64 05/31/16 14:50 O2 Sat by Pulse Oximetry (%) 94 L 05/31/16 09:00 Constitutional: Yes: Mild Distress Eyes: Yes: WNL HENT: Yes: WNL Neck: Yes: WNL Cardiovascular: Yes: Pulse Irregular Respiratory: Yes: WNL Gastrointestinal: Yes: WNL Genitourinary: Yes: WNL Musculoskeletal: Yes: Muscle Weakness Extremities: Yes: WNL Edema: No Peripheral Pulses WNL: Yes Integumentary: Yes: Erythema Wound/Incision: Yes: Clean/Dry, Dressing Removed Neurological: Yes: Pre-Existing Deficit, Unsteady Gait, Weakness ...Motor Strength: LLE, RLE Psychiatric: Yes: Agitated Labs: CBC, BMP 05/31/16 07:00 05/31/16 07:00 Problem List - Problems (1) Cellulitis Code(s): L03.90 - CELLULITIS, UNSPECIFIED (2) Dehydration Code(s): E86.0 - DEHYDRATION (3) Fever Code(s): R50.9 - FEVER, UNSPECIFIED (4) Gait difficulty Code(s): R26.9 - UNSPECIFIED ABNORMALITIES OF GAIT AND MOBILITY (5) Generalized weakness Code(s): R53.1 - WEAKNESS (6) Anxiety Code(s): F41.9 - ANXIETY DISORDER, UNSPECIFIED (7) Thibodeaux's cyst of knee Code(s): M71.20 - SYNOVIAL CYST OF POPLITEAL SPACE [THIBODEAUX], UNSPECIFIED KNEE Qualifiers: Laterality: left Qualified Code(s): M71.22 - Synovial cyst of popliteal space [Thibodeaux], left knee (8) HTN (hypertension) Code(s): I10 - ESSENTIAL (PRIMARY) HYPERTENSION Assessment/Plan ABX STOPPED, MONITOR OFF ABX KLONOPIN DAVIDN OOB TO CHAIR PT LISANDRO OOB TO CHAIR TO [facility]
[2016-05-31] MEDS: ROSUVASTATIN CA 5 MG TABLET (FP) PO SCH (21:17)
[2016-06-01] MEDS: clonazePAM 0.5 MG TABLET PO SCH ×3 (05:29→22:36)
[2016-06-01] MEDS: ACETAMINOPHEN 325 MG TABLET (FP) PO PRN ×2 (07:07→22:41)
--- NOTE | 2016-06-01 09:22 | DS ---
Physical Examination Vital Signs: Vital Signs Temperature 98.1 F 06/01/16 05:27 Pulse Rate 66 06/01/16 05:27 Respiratory Rate 20 06/01/16 05:27 Blood Pressure 110/53 06/01/16 05:27 O2 Sat by Pulse Oximetry (%) 95 05/31/16 20:43 Constitutional: Yes: Calm Cardiovascular: Yes: Regular Rate and Rhythm Respiratory: Yes: CTA Bilaterally Gastrointestinal: Yes: Normal Bowel Sounds, Soft Edema: No Labs: CBC, BMP 05/31/16 07:00 05/31/16 07:00 Discharge Summary Reason For Visit: CELLULITIS,FEVER,GAIT DIFFICULTY Current Active Problems Cellulitis (Acute) Dehydration (Acute) Fever (Acute) Gait difficulty (Acute) Generalized weakness (Acute) Hospital Course: (1) Cellulitis Code(s): L03.90 - CELLULITIS, UNSPECIFIED (2) Dehydration Code(s): E86.0 - DEHYDRATION (3) Fever Code(s): R50.9 - FEVER, UNSPECIFIED (4) Gait difficulty Code(s): R26.9 - UNSPECIFIED ABNORMALITIES OF GAIT AND MOBILITY (5) Generalized weakness Code(s): R53.1 - WEAKNESS (6) Anxiety Code(s): F41.9 - ANXIETY DISORDER, UNSPECIFIED (7) Thibodeaux's cyst of knee Code(s): M71.20 - SYNOVIAL CYST OF POPLITEAL SPACE [THIBODEAUX], UNSPECIFIED KNEE Qualifiers: Laterality: left Qualified Code(s): M71.22 - Synovial cyst of popliteal space [Thibodeaux], left knee (8) HTN (hypertension) Code(s): I10 - ESSENTIAL (PRIMARY) HYPERTENSION Assessment/Plan ABX STOPPED, MONITOR OFF ABX KLONOPIN PRN OOB TO CHAIR PT EVAL OOB TO CHAIR DISCHARGE TO [facility] Condition: Stable - Instructions Referrals: Vansesa Oneal MD [Primary Care Provider] - [facility] - Home Medications Comprehensive Discharge Medication List: Ambulatory Orders Diazepam [Valium] 2 mg PO TID PRN 01/26/14 Acetaminophen [Tylenol Extra Strength] 1,000 mg PO BID PRN 01/11/15 Clonidine HCl [Catapres -] 0.1 mg PO BID 01/11/15 Rosuvastatin [Crestor -] 5 mg PO DAILY 01/11/15 Digoxin [Lanoxin -] 0.125 mg PO DAILY tablet 01/16/15 Magnesium Oxide [Mag-Ox -] 400 mg PO BID tablet 01/16/15 Metoprolol Succinate [Toprol XL -] 50 mg PO DAILY tab.sr.24h 01/16/15 Multivitamins [Multivit ([facility] Form[facility])] 1 tab PO DAILY tab 01/16/15 Apixaban [Eliquis] 2.5 mg PO BID 05/28/16 Citalopram Hydrobromide [Celexa -] 10 mg PO DAILY 05/28/16 Clonazepam [Klonopin -] 0.5 mg PO TID 05/28/16 Clonidine HCl 0.1 mg PO BID 05/28/16
[2016-06-01] MEDS: MULTIVITAMINS (DAILY MVI) TABLET (FP) PO SCH (09:49)
[2016-06-01] MEDS: DIGOXIN 0.125 MG TABLET (FP) PO SCH (09:49)
[2016-06-01] MEDS: METOPROLOL SUCCINATE 50 MG TAB.SR.24H (FP) PO SCH ×2 (09:49→10:04)
[2016-06-01] MEDS: MAGNESIUM OXIDE 400 MG TABLET (FP) PO SCH ×2 (09:49→22:36)
[2016-06-01] MEDS: cloNIDine HCL 0.1 MG TABLET PO SCH ×2 (09:49→22:36)
[2016-06-01] MEDS: CITALOPRAM HYDROBROMIDE 10 MG TABLET (FP) PO SCH (09:49)
[2016-06-01] MEDS ORDERED: PT OWN MED DRAWER 7, Y5N ONE ×2 (09:52→22:32)
[2016-06-01] MEDS: APIXABAN 2.5 MG TABLET PO SCH ×2 (09:53→22:36)
[2016-06-01] MEDS: ROSUVASTATIN CA 5 MG TABLET (FP) PO SCH (22:36)
[2016-06-02] MEDS: clonazePAM 0.5 MG TABLET PO SCH ×2 (05:57→14:21)
[2016-06-02] MEDS: ACETAMINOPHEN 325 MG TABLET (FP) PO PRN ×2 (05:57→11:41)
--- NOTE | 2016-06-02 10:20 | PN ---
Progress Note (short form) - Note Progress Note: CHART AND EVENTS REVIEWED PATIENT SEEN AND EXAMINED PREPARED DISCHARGE PAPERWORK TO [facility] Problem List - Problems (1) Cellulitis Code(s): L03.90 - CELLULITIS, UNSPECIFIED (2) Dehydration Code(s): E86.0 - DEHYDRATION (3) Fever Code(s): R50.9 - FEVER, UNSPECIFIED (4) Gait difficulty Code(s): R26.9 - UNSPECIFIED ABNORMALITIES OF GAIT AND MOBILITY (5) Generalized weakness Code(s): R53.1 - WEAKNESS (6) Anxiety Code(s): F41.9 - ANXIETY DISORDER, UNSPECIFIED (7) Thibodeaux's cyst of knee Code(s): M71.20 - SYNOVIAL CYST OF POPLITEAL SPACE [THIBODEAUX], UNSPECIFIED KNEE Qualifiers: Laterality: left Qualified Code(s): M71.22 - Synovial cyst of popliteal space [Thibodeaux], left knee (8) HTN (hypertension) Code(s): I10 - ESSENTIAL (PRIMARY) HYPERTENSION
[2016-06-02] MEDS: cloNIDine HCL 0.1 MG TABLET PO SCH (10:38)
[2016-06-02] MEDS: CITALOPRAM HYDROBROMIDE 10 MG TABLET (FP) PO SCH (10:38)
[2016-06-02] MEDS: DIGOXIN 0.125 MG TABLET (FP) PO SCH (10:39)
[2016-06-02] MEDS: MAGNESIUM OXIDE 400 MG TABLET (FP) PO SCH (10:39)
[2016-06-02] MEDS: APIXABAN 2.5 MG TABLET PO SCH (10:39)
[2016-06-02] MEDS: METOPROLOL SUCCINATE 50 MG TAB.SR.24H (FP) PO SCH (10:40)
[2016-06-02] MEDS: MULTIVITAMINS (DAILY MVI) TABLET (FP) PO SCH (10:40)
[2016-06-02 14:59] VITALS: BP 104/48; PULSE 76; TEMP 98.5
== END 2016-06-02 17:24 | DRG 603 ==
LOC: JER 00:50 → JERBED 05:36 → UNDOADMIN 05:36 → JERBED 06:39 → J7W 12:53
PROVIDERS: ADMIT Family Medicine; ATTEND Family Medicine
DX: L03.116 Cellulitis of left lower limb (principal); N39.0 Urinary tract infection, site not specified; E86.0 Dehydration; R26.9 Unspecified abnormalities of gait and mobility; M71.22 Synovial cyst of popliteal space [Baker], left knee; E78.5 Hyperlipidemia, unspecified; I10 Essential (primary) hypertension; I48.91 Unspecified atrial fibrillation; Z79.01 Long term (current) use of anticoagulants; F41.9 Anxiety disorder, unspecified; F03.90 Unspecified dementia, unspecified severity, without behavioral disturbance, psychotic disturbance, mood disturbance, and anxiety; D72.829 Elevated white blood cell count, unspecified; R53.1 Weakness
CPT/HCPCS: 36415; 71010-TC; 76775-TC; 80053; 80162; 81003; 81015; 82550; 84484; 85025; 85027; 85651; 86140; 87040; 87086; 93005; 93010; 93970-TC; 97116-GP; 97161-GP; 99283-25

== ENCOUNTER 2016-06-15 00:53 | Inpatient (IN) | payer OTHER ==
[2016-06-15 01:12] VITALS: BMI 18.9
[2016-06-15] MEDS ORDERED: ONDANSETRON 4 MG/2 ML VIAL IVPB ONE (01:39)
[2016-06-15] MEDS ORDERED: morphine CARPU-JECT 4 MG/1 ML DISP.SYRIN IVPUSH ONE (01:39)
[2016-06-15] MEDS ORDERED: SODIUM CHLORIDE 500 ML IV STA (01:39)
[2016-06-15 01:43] LABS: BASOPHIL 0.8 % (0-2.0); MCHC 31.8 g/dl (32.0-36.0); MEAN CELL VOLUME 87.8 fl (80-96); MEAN PLT VOLUME 7.6 fl (7.5-11.1); NEUTROPHILS 91.8 % (42.8-82.8); PLATELET COUNT 411 K/MM3 (134-434); RDW 14.2 % (11.6-15.6); WHITE BLOOD COUNT 17.4 K/mm3 (4.0-10.0)
[2016-06-15] MEDS ORDERED: ONDANSETRON 4 MG/2 ML VIAL ONE (01:47)
[2016-06-15] MEDS ORDERED: morphine CARPU-JECT 4 MG/1 ML DISP.SYRIN ONE (01:47)
--- NOTE | 2016-06-15 01:49 | PDOC ---
History of Present Illness - General Chief Complaint: Pain, Acute Stated Complaint: ABDOMINAL PAIN Time Seen by Provider: 06/15/16 01:32 History Source: Patient, Family Exam Limitations: No Limitations - History of Present Illness Travel History: No Initial Comments: 06/15/16 01:43 80yo Female patient presented to ED via EMS from [facility] with c/ o abd pain. According to patient son, patient has been having abd pain all day starting at 6pm, pain progressed at 1015pm- patient given oxycontin with no relief- patient sent to this ED for evaluation. Son inform com writer that patient recently admitted May 27 for "blood infection" and d/c to [facility] for rehab but has not gotten out of bed per son. Patient also has not had a BM today. Denies any other complaints at this time. Timing/Duration: reports: getting worse Quality: reports: severe Abdominal Pain Onset Location: reports: LLQ Pain Radiation: reports: RLQ Activities at Onset: reports: no specific activity Treatment Prior to Arrive: improves with: analgesics (Oxycontin) Aggravating Factors: improves with: None. worse with: Defecation, Eating, Emotional upset, Exertion, [place], Movement, Voiding, Change in position Alleviating Factors: improves with: None. worse with: Belching, Shallow Breathing, Defecation, Eating, Holding Breath, Passing Gas, Change in Position, Rest, Voiding, Vomiting Past History - Travel Traveled outside of the country in the last 30 days: No Close contact w/someone who was outside of country & ill: No - Past Medical History Allergies/Adverse Reactions: Allergies Allergy/AdvReac Type Severity Reaction Status Date / Time Penicillins Allergy Verified 06/15/16 01:05 Home Medications: Ambulatory Orders Digoxin [Lanoxin -] 0.125 mg PO DAILY tablet 01/16/15 Magnesium Oxide [Mag-Ox -] 400 mg PO BID tablet 01/16/15 Metoprolol Succinate [Toprol XL -] 50 mg PO DAILY tab.sr.24h 01/16/15 Multivitamins [Multivit ([facility] Formulary)] 1 tab PO DAILY tab 01/16/15 Apixaban [Eliquis] 2.5 mg PO BID 05/28/16 Citalopram Hydrobromide [Celexa -] 10 mg PO DAILY 05/28/16 Clonazepam [Klonopin -] 0.5 mg PO TID 05/28/16 Clonidine HCl 0.1 mg PO BID 05/28/16 Acetaminophen [Tylenol .Regular Strength -] 650 mg PO Q6H PRN #0 tablet Rosuvastatin [Crestor -] 5 mg PO HS tablet 06/01/16 Oxycodone HCl [Roxicodone -] 5 mg PO ONCE 06/15/16 Cancer: Yes (rt) Cardiac Disorders: Yes GI Disorders: Yes (sbo) Disorders: Yes (RECURRENT UTI) HTN: Yes Hypercholesterolemia: Yes Psychiatric Problems: Yes (anxiety) - Surgical History GI Surgery: Yes (resection) - Immunization History Immunization Up to Date: Yes - Psycho/Social/Smoking Cessation Hx Anxiety: No Suicidal Ideation: No Smoking History: Former smoker Have you smoked in the past 12 months: No If you are a former smoker, when did you quit?: 1984 Information on smoking cessation initiated: No Hx Alcohol Use: No Drug/Substance Use Hx: No Substance Use Type: None Abd/GI Specific PMHX - Complaint Specific PMHX Colitis: No Diverticulitis: No Gall Bladder Disease: No GERD: No Hepatitis: No Irritable Bowel Synd (IBS): No Pancreatitis: No GI Ulcer Disease: No Review of Systems - Review of Systems Able to Perform ROS?: Yes Is the patient limited Bel[place]ian proficient: No Constitutional: No: Chills, Fever Respiratory: No: Cough, Orthopnea, Shortness of Breath, Stridor, Wheezing Cardiac (ROS): No: Chest Pain, Edema, Palpitations, Chest Tightness ABD/GI: Yes: Other (Abdominal Pain). No: Constipated, Diarrhea, Nausea, Poor Appetite, Poor Fluid Intake, Vomiting : No: Burning, Dysuria, Frequency, Flank Pain, Hematuria, Pain, Urgency Musculoskeletal: No: Back Pain Integumentary: No: Bruising, Erythema, Rash Neurological: No: Headache, Seizure, Ataxia All Other Systems: Reviewed and Negative *Physical Exam - Vital Signs Last Vital Signs Temp Pulse Resp BP Pulse Ox 98.9 F 65 22 109/61 97 06/15/16 01:08 06/15/16 01:25 06/15/16 01:08 06/15/16 01:08 06/15/16 01:25 - Physical Exam General Appearance: Yes: Appropriately Dressed, Moderate Distress, Thin. No: Apparent Distress, Mild Distress, Severe Distress Neck: positive: Trachea midline, Supple. negative: Stridor, Lymphadenopathy (R) , Lymphadenopathy (L) Respiratory/Chest: positive: Lungs Clear, Decreased Breath Sounds. negative: Chest Tender, Normal Breath Sounds, Respiratory Distress, Accessory Muscle Use, Labored Respiration, Rapid RR Cardiovascular: positive: Regular Rhythm, Regular Rate. negative: Edema, JVD, Murmur Gastrointestinal/Abdominal: positive: Tender (+ LLQ-RLQ W/ GUARDING, REBOUND TO LLQ.), Decreased BS. negative: Normal Bowel Sounds, Increased Bowel Sounds Musculoskeletal: positive: Normal Inspection. negative: CVA Tenderness Extremity: positive: Normal Capillary Refill, Normal Inspection, Normal Range of Motion. negative: Pedal Edema, Swelling Integumentary: positive: Normal Color, Dry, Warm. 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 KING- RESULTS OF CT-SCAN AND BLOOD TEST DISCUSSED. REQUEST FOR SURGICAL CONSULT DR. ROY AND ICU ADMISSION. -- IV LEVOQUIN AND FLAGYL STARTED. *DC/Admit/Observation/Transfer Diagnosis at time of Disposition: Diverticulitis of colon with perforation - Discharge Dispostion Condition at time of disposition: Fair Admit: Yes
[2016-06-15 02:06] LABS: ALBUMIN 2.4 g/dl (3.4-5.0); BILIRUBIN,TOTAL 0.5 mg/dL (0.2-1.0); CALCIUM 8.6 mg/dL (8.5-10.1); CREATININE 1.1 mg/dL (0.55-1.02); TOT PROT 6.6 g/dl (6.4-8.2)
[2016-06-15 02:20] LABS: URINE APPEARANCE CLEAR; URINE BILIRUBIN NEGATIVE (NEGATIVE); URINE COLOR YELLOW; URINE GLUCOSE (UA) NEGATIVE (NEGATIVE); URINE KETONE NEGATIVE (NEGATIVE); URINE LEUK ESTERASE NEGATIVE (NEGATIVE); URINE NITRITE NEGATIVE (NEGATIVE); URINE PROTEIN NEGATIVE (NEGATIVE); URINE UROBILINOGEN NEGATIVE E.U./dl (0.2-1.0)
[2016-06-15 02:24] LABS: TROPONIN I < 0.02 ng/ml (0.00-0.05)
[2016-06-15 02:26] LABS: URINE BLOOD 1+ (NEGATIVE)
[2016-06-15 02:35] LABS: URINE BACTERIA MANY /hpf (NONE SEEN); URINE MUCUS FEW; URINE RBC <1 /hpf (0-3); URINE WBC 2 /hpf (3-5)
[2016-06-15] MEDS ORDERED: METRONIDAZOLE 500 MG PREMIXED 100 ML IVPB ONE ×2 (03:22→03:28)
[2016-06-15] MEDS ORDERED: CEFTRIAXONE 1 GM in DEXTROSE 5%-WATER - 50 ML IVPB ONE (03:22)
[2016-06-15] MEDS ORDERED: LEVOFLOXACIN 750 MG IVPB 150 ML IVPB ONE ×2 (03:27→04:00)
--- NOTE | 2016-06-15 04:47 | CONSULT ---
Consult Consult Specialty:: Pulm/CC - History of Present Illness History of Present Illness: Pt is an 80yr old woman with PMHx of HTN, HLD, a-fib (on Eliquis), dementia and anxiety. Pt was discharged on 05/31 to [facility] after admission for cellulitis. Pt now presents to the ER with CC of abdominal pain. In the ER pt with BUN/Cr 28/1.1 and WBC 17.4. Prelim read of CT of ab/pel concerning for possible acute process. Pt admitted to the ICU for further management. Upon assessment pt denies chest pain/sob/stomachache/headache/diarrhea. 115/62, HR 79 (sinus on tele) low 90s on NC RR 20s. - Past Medical History Cardio/Vascular: Yes: AFIB, HTN Renal/: Yes: UTI (hx of ) - Alcohol/Substance Use Hx Alcohol Use: No - Smoking History Smoking history: Former smoker Have you smoked in the past 12 months: No If you are a former smoker, when did you quit?: 1984 <Mervat Arshad - Last Filed: 06/15/16 05:56> Home Medications <Mervat Arshad - Last Filed: 06/15/16 05:56> <Valerio Woods MD - Last Filed: 06/15/16 13:43> - Allergies Allergies/Adverse Reactions: Allergies Allergy/AdvReac Type Severity Reaction Status Date / Time Penicillins Allergy Verified 06/15/16 01:05 - Home Medications Home Medications: Ambulatory Orders Digoxin [Lanoxin -] 0.125 mg PO DAILY tablet 01/16/15 Magnesium Oxide [Mag-Ox -] 400 mg PO BID tablet 01/16/15 Metoprolol Succinate [Toprol XL -] 50 mg PO DAILY tab.sr.24h 01/16/15 Multivitamins [Multivit ([facility] Formulary)] 1 tab PO DAILY tab 01/16/15 Apixaban [Eliquis] 2.5 mg PO BID 05/28/16 Citalopram Hydrobromide [Celexa -] 10 mg PO DAILY 05/28/16 Clonazepam [Klonopin -] 0.5 mg PO TID 05/28/16 Clonidine HCl 0.1 mg PO BID 05/28/16 Acetaminophen [Tylenol .Regular Strength -] 650 mg PO Q6H PRN #0 tablet Rosuvastatin [Crestor -] 5 mg PO HS tablet 06/01/16 Oxycodone HCl [Roxicodone -] 5 mg PO ONCE 06/15/16 Physical Exam Vital Signs: Vital Signs Period Temp Pulse Resp BP Sys/Palafox Pulse Ox Last 24 Hr 98.9 F 65-90 14-22 109-110/60-61 95-99 Intake & Output 06/12/16 06/13/16 06/14/16 06/15/16 23:59 23:59 23:59 23:59 Weight 110 lb 3.698 oz Constitutional: Yes: Mild Distress, Thin Eyes: Yes: Other (resistant to assessment) HENT: Yes: WNL Cardiovascular: Yes: S1, S2, Other (sinus on tele) Respiratory: Yes: On Nasal O2, Rales (fine posterially bilateral at bases), Tachypnea. No: Cough, Wheezes Gastrointestinal: Yes: Hypoactive Bowel Sounds, Tenderness (lower qudrants, L>R) ...Rectal Exam: Yes: Deferred Musculoskeletal: Yes: Other (bilateral patellar inflammation) Edema: Yes Edema: LUE: Trace Peripheral Pulses WNL: Yes (+2 bilateral pedal pulses) Integumentary: Yes: WNL Neurological: Yes: Alert Psychiatric: Yes: WNL Labs: Abnormal Lab Results 06/15/16 06/15/16 06/15/16 01:30 01:30 01:56 WBC 17.4 H Hgb 10.6 L D MCHC 31.8 L Neutrophils % 91.8 H Lymphocytes % 3.0 L D INR PTT (Actin FS) BUN 28 H D Creatinine 1.1 H Random Glucose 119 H D C-Reactive Protein B-Natriuretic Peptide Albumin 2.4 L Urine Blood 1+ H 06/15/16 06/15/16 04:52 05:00 WBC Hgb MCHC Neutrophils % Lymphocytes % INR 2.10 H D PTT (Actin FS) 35.0 H BUN Creatinine Random Glucose C-Reactive Protein 17.5 H D B-Natriuretic Peptide 776.72 H Albumin Urine Blood <Mervat Arshad - Last Filed: 06/15/16 05:56> Vital Signs: Vital Signs Temperature 98.4 F 06/15/16 12:00 Pulse Rate 72 06/15/16 12:00 Respiratory Rate 18 06/15/16 12:00 Blood Pressure 118/56 06/15/16 12:00 O2 Sat by Pulse Oximetry (%) 97 06/15/16 07:25 Labs: CBC, BMP 06/15/16 09:12 06/15/16 09:12 <Valerio Woods MD - Last Filed: 06/15/16 13:43> Imaging - Results Chest X-ray: Image Reviewed Cat Scan: Report Reviewed (prelim ct ab/pel report reviewed) <Mervat Arshad - Last Filed: 06/15/16 05:56> Assessment/Plan Pt is an 80yr old woman with PMHx of HTN, HLD, a-fib (on Eliquis), dementia and anxiety. Pt now in the ICU for management of possible acute abdominal process. Pulm: -O2 support prn -Incentive spirometer ID: -f/u cultures labs -Consult -Empiric Levaquin/Flagyl started in the ER, continue antibiotics per ID -Lactic acid <1, f/u CRP GI/Surgery -Dr. Wayne consulted in ER, pending eval Renal: WILMER likely from dehydration as pt appears hemoconcentrated from baseline -IVF as tolerated -Replete electrolytes prn -I/Os Urology: Possible fistula noted on CT -Consult Cardio -BP/Rate control (on home Digoxin/Metoprolol/Clonidine) -f/u bnp, pt with enlarged cardiac silhouette Neuro -Pain management Rheum: -Consider consult as pt with significant bilateral patellar inflammation and some limitation to movement, gout? severe arthritis? Prophylactic -SCDs <Mervat Arshad - Last Filed: 06/15/16 05:56> Pt seen and examined, agree with above. Valerio Woods MD <Valerio Woods MD - Last Filed: 06/15/16 13:43>
[2016-06-15 05:30] LABS: INR 2.1 (0.82-1.09); PROTHROMBIN TIME (PATIENT) 23.4 SEC (9.98-11.88)
[2016-06-15 05:39] LABS: C-REACTIVE PROTEIN 17.5 MG/DL (0.00-0.3); MAGNESIUM 2.3 mg/dL (1.8-2.4); PHOSPHOROUS 3.9 mg/dL (2.5-4.9)
[2016-06-15] MEDS ORDERED: LACTATED RINGERS SOLUTION 1,000 ML IV SCH (06:00)
[2016-06-15] MEDS ORDERED: SODIUM CHLORIDE 250 ML IV STA (06:00)
--- NOTE | 2016-06-15 08:29 | HP ---
Admitting History and Physical - Primary Care Physician PCP: Vanessa Oneal - Admission Chief Complaint: ABDOMINAL PAIN History of Present Illness: 80 Y/O FEMALE SENT FROM [facility] HERE TO ED FOR ABDOMINAL PAIN FOUND TO HAVE PERFORATED INTESTINE ON CT SCAN. aDMITT TO ICU, HISTORY OF AFIB ON ELIQUIS WILL AC FOR NOW, ANXIETY DISORDER , DIGOXIN IV, SURGERY AND ID CONSULT ORDERED History Source: Patient, Medical Record - Past Medical History Cardiovascular: Yes: AFIB, HTN Renal/: Yes: UTI (hx of ) - Smoking History Smoking history: Former smoker Have you smoked in the past 12 months: No If you are a former smoker, when did you quit?: 1984 - Alcohol/Substance Use Hx Alcohol Use: No Home Medications - Allergies Allergies/Adverse Reactions: Allergies Allergy/AdvReac Type Severity Reaction Status Date / Time Penicillins Allergy Verified 06/15/16 01:05 - Home Medications Home Medications: Ambulatory Orders Digoxin [Lanoxin -] 0.125 mg PO DAILY tablet 01/16/15 Magnesium Oxide [Mag-Ox -] 400 mg PO BID tablet 01/16/15 Metoprolol Succinate [Toprol XL -] 50 mg PO DAILY tab.sr.24h 01/16/15 Multivitamins [Multivit ([facility] Formulary)] 1 tab PO DAILY tab 01/16/15 Apixaban [Eliquis] 2.5 mg PO BID 05/28/16 Citalopram Hydrobromide [Celexa -] 10 mg PO DAILY 05/28/16 Clonazepam [Klonopin -] 0.5 mg PO TID 05/28/16 Clonidine HCl 0.1 mg PO BID 05/28/16 Acetaminophen [Tylenol .Regular Strength -] 650 mg PO Q6H PRN #0 tablet Rosuvastatin [Crestor -] 5 mg PO HS tablet 06/01/16 Oxycodone HCl [Roxicodone -] 5 mg PO ONCE 06/15/16 Review of Systems - Review of Systems Constitutional: reports: Loss of Appetite, Weakness Eyes: reports: No Symptoms HENT: reports: No Symptoms Neck: reports: No Symptoms Cardiovascular: reports: No Symptoms Respiratory: reports: No Symptoms Gastrointestinal: reports: Abdominal Pain, Indigestion, Nausea Genitourinary: reports: No Symptoms Musculoskeletal: reports: No Symptoms Integumentary: reports: No Symptoms Neurological: reports: No Symptoms Endocrine: reports: No Symptoms Hematology/Lymphatic: reports: No Symptoms Psychiatric: reports: Anxiety Physical Examination Vital Signs: Vital Signs Temperature 97 F L 06/15/16 06:30 Pulse Rate 72 06/15/16 07:25 Respiratory Rate 18 06/15/16 07:25 Blood Pressure 110/54 06/15/16 07:25 O2 Sat by Pulse Oximetry (%) 97 06/15/16 07:25 Findings/Remarks: IN BED COMFORTABLE Constitutional: Yes: Mild Distress Eyes: Yes: WNL HENT: Yes: WNL Neck: Yes: WNL Cardiovascular: Yes: Pulse Irregular Respiratory: Yes: WNL Gastrointestinal: Yes: Distention, Tenderness Renal/: Yes: WNL Musculoskeletal: Yes: WNL Extremities: Yes: WNL Edema: No Peripheral Pulses WNL: Yes Integumentary: Yes: WNL Wound/Incision: Yes: Clean/Dry Neurological: Yes: WNL ...Motor Strength: WNL Psychiatric: Yes: Agitated Imaging - Results Cat Scan: Report Reviewed Problem List - Problems (1) Diverticulitis of colon with perforation Code(s): K57.20 - DVTRCLI OF LG INT W PERFORATION AND ABSCESS W/O BLEEDING (2) Anxiety Code(s): F41.9 - ANXIETY DISORDER, UNSPECIFIED (3) HTN (hypertension) Code(s): I10 - ESSENTIAL (PRIMARY) HYPERTENSION Qualifiers: Hypertension type: essential hypertension Qualified Code(s): I10 - Essential (primary) hypertension (4) Hyperlipidemia Code(s): E78.5 - HYPERLIPIDEMIA, UNSPECIFIED Qualifiers: Hyperlipidemia type: pure hypercholesterolemia Qualified Code(s): E78.0 - Pure hypercholesterolemia (5) Rapid atrial fibrillation Code(s): I48.91 - UNSPECIFIED ATRIAL FIBRILLATION (6) Renal insufficiency Code(s): N28.9 - DISORDER OF KIDNEY AND URETER, UNSPECIFIED Assessment/Plan ELIQUIS ON HOLD SURGERY EVAL ICU MONITORING NPO IV ABX STD FOR DVT PROPHYLAXIS
[2016-06-15] MEDS ORDERED: ONDANSETRON 4 MG/2 ML VIAL IVPB PRN ×2 (08:32→19:00)
[2016-06-15] MEDS ORDERED: LORAZEPAM CARPU-JECT 2 MG/ML DISP.SYRIN IVPUSH PRN (08:32)
[2016-06-15 09:15] LABS: MCH 28.4 pg (25.7-33.7); MCHC 31.8 g/dl (32.0-36.0); MEAN CELL VOLUME 89.2 fl (80-96); MEAN PLT VOLUME 7.2 fl (7.5-11.1); PLATELET COUNT 346 K/MM3 (134-434); RDW 13.7 % (11.6-15.6)
--- NOTE | 2016-06-15 10:00 | PN ---
Progress Note, Physician Chief Complaint: ID Full note dictated and discussed with ICU housestaff - Current Medication List Current Medications: Active Medications Lactated Ringer's (Lactated Ringers Solution) 1,000 mls @ 83 mls/hr IV ASDIR DANA Last Admin: 06/15/16 07:00 Dose: 83 mls/hr Metronidazole (Flagyl 500mg Premixed Ivpb -) 100 mls @ 100 mls/hr IVPB Q8H-IV DANA Ceftriaxone Sodium 2 gm/ (Dextrose) 100 mls @ 200 mls/hr IVPB DAILY DANA Lorazepam (Ativan Injection -) 0.5 mg IVPUSH BID PRN PRN Reason: ANXIETY Ondansetron HCl (Zofran Injection) 4 mg IVPB Q6H PRN PRN Reason: NAUSEA - Objective Vital Signs: Vital Signs Temperature 97 F L 06/15/16 06:30 Pulse Rate 72 06/15/16 09:00 Respiratory Rate 18 06/15/16 09:00 Blood Pressure 99/52 06/15/16 09:00 O2 Sat by Pulse Oximetry (%) 97 06/15/16 07:25 Constitutional: Yes: No Distress Neck: Yes: WNL, Supple Cardiovascular: Yes: S1. No: Murmur Respiratory: Yes: WNL, Regular, CTA Bilaterally Gastrointestinal: Yes: Normal Bowel Sounds, Tenderness Edema: No Labs: CBC, BMP 06/15/16 09:12 INR, PTT INR 2.10 (0.82-1.09) H D 06/15/16 04:52 Problem List - Problems (1) Diverticulitis of colon with perforation Code(s): K57.20 - DVTRCLI OF LG INT W PERFORATION AND ABSCESS W/O BLEEDING Assessment/Plan Laboratory Tests 06/15/16 06/15/16 06/15/16 01:30 01:56 05:00 WBC Hgb Hct Plt Count BUN 28 H D Creatinine 1.1 H C-Reactive Protein 17.5 H D Ur Leukocyte Esterase Negative Urine RBC <1 Urine WBC 2 06/15/16 09:12 WBC 24.0 H D Hgb 10.2 L Hct 32.0 L Plt Count 346 BUN Creatinine C-Reactive Protein Ur Leukocyte Esterase Urine RBC Urine WBC Assessment Pelvic abscess ? perforated diverticultitis Plan Blood cultures IR intervention drainage Ceftriaxone 2grs and metronidazole [place] [facility]
--- NOTE | 2016-06-15 10:04 | CON.CARD ---
Consult Consult Specialty:: Cardiology - History of Present Illness History of Present Illness: Pt is an 80yr old woman with PMHx of HTN, HLD, a-fib (on Eliquis), dementia and anxiety. Pt was discharged on 05/31 to [facility] after admission for cellulitis. Pt now presents to the ER with CC of abdominal pain. In the ER pt with BUN/Cr 28/1.1 and WBC 17.4. Prelim read of CT of ab/pel concerning for possible acute process. Pt admitted to the ICU for further management. Upon assessment pt denies chest pain/sob/stomachache/headache/diarrhea. 115/62, HR 79 (sinus on tele) low 90s on NC RR 20s. - Past Medical History - Past Medical History Cardio/Vascular: Yes: AFIB, HTN Renal/: Yes: UTI (hx of ) - Alcohol/Substance Use Hx Alcohol Use: No - Smoking History Smoking history: Former smoker Have you smoked in the past 12 months: No If you are a former smoker, when did you quit?: 1984 Home Medications - Allergies Allergies/Adverse Reactions: Allergies Allergy/AdvReac Type Severity Reaction Status Date / Time Penicillins Allergy Verified 06/15/16 01:05 - Home Medications Home Medications: Ambulatory Orders Digoxin [Lanoxin -] 0.125 mg PO DAILY tablet 01/16/15 Magnesium Oxide [Mag-Ox -] 400 mg PO BID tablet 01/16/15 Metoprolol Succinate [Toprol XL -] 50 mg PO DAILY tab.sr.24h 01/16/15 Multivitamins [Multivit ([facility] Formulary)] 1 tab PO DAILY tab 01/16/15 Apixaban [Eliquis] 2.5 mg PO BID 05/28/16 Citalopram Hydrobromide [Celexa -] 10 mg PO DAILY 05/28/16 Clonazepam [Klonopin -] 0.5 mg PO TID 05/28/16 Clonidine HCl 0.1 mg PO BID 05/28/16 Acetaminophen [Tylenol .Regular Strength -] 650 mg PO Q6H PRN #0 tablet Rosuvastatin [Crestor -] 5 mg PO HS tablet 06/01/16 Oxycodone HCl [Roxicodone -] 5 mg PO ONCE 06/15/16 Review of Systems Unable to obtain ROS, reason: dementia Vital Signs: Vital Signs Temperature 97 F L 06/15/16 06:30 Pulse Rate 72 06/15/16 09:00 Respiratory Rate 18 06/15/16 09:00 Blood Pressure 99/52 06/15/16 09:00 O2 Sat by Pulse Oximetry (%) 97 06/15/16 07:25 Constitutional: Yes: Well Nourished, No Distress, Calm Eyes: Yes: WNL, Conjunctiva Clear, EOM Intact HENT: Yes: WNL, Atraumatic, Normocephalic Neck: Yes: WNL, Supple, Trachea Midline Respiratory: Yes: WNL, Regular, CTA Bilaterally Gastrointestinal: Yes: WNL, Normal Bowel Sounds Renal/: Yes: WNL Cardiovascular: Yes: Pulse Irregular Heart Sounds: Yes: S1, S2 Musculoskeletal: Yes: WNL Extremities: Yes: WNL Integumentary: Yes: WNL Neurological: Yes: WNL, Alert, Oriented ...Motor Strength: WNL Psychiatric: Yes: WNL, Alert, Oriented - Other Data Labs, Other Data: CBC, BMP 06/15/16 09:12 INR, PTT INR 2.10 (0.82-1.09) H D 06/15/16 04:52 Troponin, BNP 06/15/16 07:43 B-Natriuretic Peptide Cancelled Troponin, BNP 06/15/16 07:43 B-Natriuretic Peptide Cancelled Laboratory Tests 06/15/16 06/15/16 06/15/16 01:30 01:30 01:30 WBC 17.4 H RBC 3.80 D Hgb 10.6 L D Hct 33.3 D MCV 87.8 MCHC 31.8 L RDW 14.2 Plt Count 411 D MPV 7.6 Neutrophils % 91.8 H Lymphocytes % 3.0 L D Monocytes % 4.4 Eosinophils % 0.0 D Basophils % 0.8 D Band Neutrophils Differential Comment Platelet Estimate INR PTT (Actin FS) Sodium 138 Potassium 5.1 D Chloride 98 Carbon Dioxide 29 Anion Gap 11 BUN 28 H D Creatinine 1.1 H Creat Clearance w eGFR 47.55 Random Glucose 119 H D Lactic Acid Calcium 8.6 Phosphorus Magnesium Total Bilirubin 0.5 D AST 36 D ALT 37 D Alkaline Phosphatase 67 Creatine Kinase Troponin I C-Reactive Protein B-Natriuretic Peptide Total Protein 6.6 D Albumin 2.4 L Total Amylase 52 Lipase 187 Urine Color Urine Appearance Urine pH Ur Specific [place] Urine Protein Urine Glucose (UA) Urine Ketones Urine Blood Urine Nitrite Urine Bilirubin Urine Urobilinogen Ur Leukocyte Esterase Urine RBC Urine WBC Urine Bacteria Urine Mucus Blood Type Antibody Screen Antibody Identification Antigen Identification 06/15/16 06/15/16 06/15/16 01:30 01:56 02:00 WBC RBC Hgb Hct MCV MCHC RDW Plt Count MPV Neutrophils % Lymphocytes % Monocytes % Eosinophils % Basophils % Band Neutrophils Differential Comment Platelet Estimate INR PTT (Actin FS) Sodium Potassium Chloride Carbon Dioxide Anion Gap BUN Creatinine Creat Clearance w eGFR Random Glucose Lactic Acid 0.965 Calcium Phosphorus Magnesium Total Bilirubin AST ALT Alkaline Phosphatase Creatine Kinase 27 Troponin I < 0.02 C-Reactive Protein B-Natriuretic Peptide Total Protein Albumin Total Amylase Lipase Urine Color Yellow Urine Appearance Clear Urine pH 6.0 Ur Specific [place] 1.017 Urine Protein Negative Urine Glucose (UA) Negative Urine Ketones Negative Urine Blood 1+ H Urine Nitrite Negative Urine Bilirubin Negative Urine Urobilinogen Negative Ur Leukocyte Esterase Negative Urine RBC <1 Urine WBC 2 Urine Bacteria Many Urine Mucus Few Blood Type Antibody Screen Antibody Identification Antigen Identification 06/15/16 06/15/16 06/15/16 04:52 05:00 05:00 WBC RBC Hgb Hct MCV MCHC RDW Plt Count MPV Neutrophils % Lymphocytes % Monocytes % Eosinophils % Basophils % Band Neutrophils Differential Comment Platelet Estimate INR 2.10 H D PTT (Actin FS) 35.0 H Sodium Potassium Chloride Carbon Dioxide Anion Gap BUN Creatinine Creat Clearance w eGFR Random Glucose Lactic Acid Calcium Phosphorus 3.9 Magnesium 2.3 Total Bilirubin AST ALT Alkaline Phosphatase Creatine Kinase Troponin I C-Reactive Protein 17.5 H D B-Natriuretic Peptide 776.72 H Total Protein Albumin Total Amylase Lipase Urine Color Urine Appearance Urine pH Ur Specific [place] Urine Protein Urine Glucose (UA) Urine Ketones Urine Blood Urine Nitrite Urine Bilirubin Urine Urobilinogen Ur Leukocyte Esterase Urine RBC Urine WBC Urine Bacteria Urine Mucus Blood Type A NEGATIVE Antibody Screen Positive H Antibody Identification Not Reportable Antigen Identification Y 06/15/16 06/15/16 06/15/16 07:43 09:12 09:12 WBC 24.0 H D RBC 3.59 L Hgb 10.2 L Hct 32.0 L MCV 89.2 MCHC 31.8 L RDW 13.7 Plt Count 346 MPV 7.2 L Neutrophils % 83.0 H Lymphocytes % 2.0 L D Monocytes % 7.0 Eosinophils % 0.0 Basophils % 0.0 Band Neutrophils 8.0 Differential Comment Manual diff done Platelet Estimate Adequate INR PTT (Actin FS) Sodium 137 Potassium 5.4 H Chloride 101 Carbon Dioxide 26 Anion Gap 10 BUN 30 H Creatinine 1.1 H Creat Clearance w eGFR 47.55 Random Glucose 116 H Lactic Acid Calcium 8.2 L Phosphorus Magnesium Total Bilirubin 0.6 AST 413 H D ALT 243 H D Alkaline Phosphatase 148 H D Creatine Kinase Troponin I C-Reactive Protein 20.0 H D B-Natriuretic Peptide Cancelled Total Protein 6.2 L Albumin 2.1 L Total Amylase Lipase Urine Color Urine Appearance Urine pH Ur Specific [place] Urine Protein Urine Glucose (UA) Urine Ketones Urine Blood Urine Nitrite Urine Bilirubin Urine Urobilinogen Ur Leukocyte Esterase Urine RBC Urine WBC Urine Bacteria Urine Mucus Blood Type Antibody Screen Antibody Identification Antigen Identification 06/15/16 10:00 WBC RBC Hgb Hct MCV MCHC RDW Plt Count MPV Neutrophils % Lymphocytes % Monocytes % Eosinophils % Basophils % Band Neutrophils Differential Comment Platelet Estimate INR PTT (Actin FS) Sodium Potassium Chloride Carbon Dioxide Anion Gap BUN Creatinine Creat Clearance w eGFR Random Glucose Lactic Acid Calcium Phosphorus Magnesium Total Bilirubin AST ALT Alkaline Phosphatase Creatine Kinase Troponin I C-Reactive Protein Cancelled B-Natriuretic Peptide Total Protein Albumin Total Amylase Lipase Urine Color Urine Appearance Urine pH Ur Specific [place] Urine Protein Urine Glucose (UA) Urine Ketones Urine Blood Urine Nitrite Urine Bilirubin Urine Urobilinogen Ur Leukocyte Esterase Urine RBC Urine WBC Urine Bacteria Urine Mucus Blood Type Antibody Screen Antibody Identification Antigen Identification Imaging - Results Chest X-ray: Image Reviewed EKG: Image Reviewed (sr rep abn) Problem List - Problems (1) Bowel perforation Code(s): K63.1 - PERFORATION OF INTESTINE (NONTRAUMATIC) (2) Diverticulitis of colon with perforation Code(s): K57.20 - DVTRCLI OF LG INT W PERFORATION AND ABSCESS W/O BLEEDING (3) Intra-abdominal abscess Code(s): K65.1 - PERITONEAL ABSCESS (4) Anxiety Code(s): F41.9 - ANXIETY DISORDER, UNSPECIFIED (5) Thibodeaux's cyst of knee Code(s): M71.20 - SYNOVIAL CYST OF POPLITEAL SPACE [THIBODEAUX], UNSPECIFIED KNEE Qualifiers: Laterality: left Qualified Code(s): M71.22 - Synovial cyst of popliteal space [Thibodeaux], left knee (6) Cellulitis Code(s): L03.90 - CELLULITIS, UNSPECIFIED (7) Contusion of foot Code(s): S90.30XA - CONTUSION OF UNSPECIFIED FOOT, INITIAL ENCOUNTER (8) Cystitis Code(s): N30.90 - CYSTITIS, UNSPECIFIED WITHOUT HEMATURIA (9) Dehydration Code(s): E86.0 - DEHYDRATION (10) Fever Code(s): R50.9 - FEVER, UNSPECIFIED (11) Gait difficulty Code(s): R26.9 - UNSPECIFIED ABNORMALITIES OF GAIT AND MOBILITY (12) Generalized weakness Code(s): R53.1 - WEAKNESS (13) HTN (hypertension) Code(s): I10 - ESSENTIAL (PRIMARY) HYPERTENSION Qualifiers: Hypertension type: essential hypertension Qualified Code(s): I10 - Essential (primary) hypertension (14) Hyperlipidemia Code(s): E78.5 - HYPERLIPIDEMIA, UNSPECIFIED Qualifiers: Hyperlipidemia type: pure hypercholesterolemia Qualified Code(s): E78.0 - Pure hypercholesterolemia (15) Pain Code(s): R52 - PAIN, UNSPECIFIED (16) Rapid atrial fibrillation Code(s): I48.91 - UNSPECIFIED ATRIAL FIBRILLATION (17) Renal insufficiency Code(s): N28.9 - DISORDER OF KIDNEY AND URETER, UNSPECIFIED (18) Sepsis Code(s): A41.9 - SEPSIS, UNSPECIFIED ORGANISM Qualifiers: Sepsis type: Escherichia coli Qualified Code(s): A41.51 - Sepsis due to Escherichia coli [E. coli] (19) UTI (urinary tract infection) Code(s): N39.0 - URINARY TRACT INFECTION, SITE NOT SPECIFIED Assessment/Plan ?acute abd paf in sr htn dementia Plan ICU monitoring echo hold eliquis start IV heparin for CVA prevention f/u with surgery and interventional radiology cctime 75 min
[2016-06-15 10:07] LABS: ALBUMIN 2.1 g/dl (3.4-5.0); BILIRUBIN,TOTAL 0.6 mg/dL (0.2-1.0); CALCIUM 8.2 mg/dL (8.5-10.1); CREATININE 1.1 mg/dL (0.55-1.02); TOT PROT 6.2 g/dl (6.4-8.2)
[2016-06-15] MEDS: METRONIDAZOLE 500 MG PREMIXED 100 ML IVPB SCH ×2 (10:08→17:46)
[2016-06-15] MEDS ORDERED: CEFTRIAXONE 100 ML IVPB SCH (10:45)
[2016-06-15] MEDS ORDERED: SODIUM CHLORIDE 2,000 ML IV STA (11:59)
--- NOTE | 2016-06-15 12:01 | CONSULT ---
Consult Consult Specialty:: Surgery Reason for Consultation:: Abdominal pain, intraabdominal collection, possible perforation, septic shock - History of Present Illness Chief Complaint: Abdominal pain History of Present Illness: 80 female sent from Nursing facility for abdominal pain x 1 day Recently treated fro cellulitis per the medical record Pain is throughout her abdomen in all quadrants Nothing alleviates the pain Denies fevers Denies diarrhea States she has not had a colonoscopy in the past History of Atrial fibrillation on Eliquis and Digoxin History of bowel obstruction requiring surgery in 2000 per the son Bulmaro- possible bowel resection - History Source History Provided By: Patient, Family Member, Medical Record - Past Medical History Cardio/Vascular: Yes: AFIB, HTN Renal/: Yes: UTI (hx of ) - Past Surgical History Past Surgical History: Yes: Mastectomy (Right- for Cancer) Additional Surgical History: Surgery for bowel obstruction in 2000- possible resection per the son - Alcohol/Substance Use Hx Alcohol Use: No - Smoking History Smoking history: Former smoker Have you smoked in the past 12 months: No If you are a former smoker, when did you quit?: 1984 - Social History Usual Living Arrangement: Assisted Living Home Medications - Allergies Allergies/Adverse Reactions: Allergies Allergy/AdvReac Type Severity Reaction Status Date / Time Penicillins Allergy Verified 06/15/16 01:05 - Home Medications Home Medications: Ambulatory Orders Digoxin [Lanoxin -] 0.125 mg PO DAILY tablet 01/16/15 Magnesium Oxide [Mag-Ox -] 400 mg PO BID tablet 01/16/15 Metoprolol Succinate [Toprol XL -] 50 mg PO DAILY tab.sr.24h 01/16/15 Multivitamins [Multivit ([facility] Formulary)] 1 tab PO DAILY tab 01/16/15 Apixaban [Eliquis] 2.5 mg PO BID 05/28/16 Citalopram Hydrobromide [Celexa -] 10 mg PO DAILY 05/28/16 Clonazepam [Klonopin -] 0.5 mg PO TID 05/28/16 Clonidine HCl 0.1 mg PO BID 05/28/16 Acetaminophen [Tylenol .Regular Strength -] 650 mg PO Q6H PRN #0 tablet Rosuvastatin [Crestor -] 5 mg PO HS tablet 06/01/16 Oxycodone HCl [Roxicodone -] 5 mg PO ONCE 06/15/16 Family Disease History - Family Disease History Family History: Unable to Obtain Review of Systems - Review of Systems Constitutional: denies: Fever Respiratory: denies: Cough Gastrointestinal: reports: Abdominal Pain. denies: Diarrhea, Vomiting Pain Intensity: 7 Physical Exam Vital Signs: Vital Signs Temperature 98.4 F 06/15/16 10:10 Pulse Rate 68 06/15/16 10:10 Respiratory Rate 18 06/15/16 10:10 Blood Pressure 102/80 06/15/16 10:10 O2 Sat by Pulse Oximetry (%) 97 06/15/16 07:25 Constitutional: Yes: Diaphoresis, Moderate Distress Cardiovascular: Yes: Pulse Irregular Respiratory: Yes: Diminished Gastrointestinal: Yes: Soft, Tenderness (Diffuse). No: Tenderness, Rebound Neurological: Yes: Alert Labs: CBC, BMP 06/15/16 09:12 06/15/16 09:12 Imaging - Results Cat Scan: Report Reviewed, Image Reviewed Problem List - Problems (1) HTN (hypertension) Code(s): I10 - ESSENTIAL (PRIMARY) HYPERTENSION Qualifiers: Hypertension type: essential hypertension Qualified Code(s): I10 - Essential (primary) hypertension (2) Renal insufficiency Code(s): N28.9 - DISORDER OF KIDNEY AND URETER, UNSPECIFIED (3) Sepsis Code(s): A41.9 - SEPSIS, UNSPECIFIED ORGANISM Qualifiers: Sepsis type: Escherichia coli Qualified Code(s): A41.51 - Sepsis due to Escherichia coli [E. coli] (4) Bowel perforation Assessment/Plan: Suspected bowel perforation with intraabdominal abscess/collection causing septic shock NPO IV antibiotics per ID IR consult placed- no window for IR drainage per Dr Deluca Discussed the options with the patient and her son Bulmaro ([phone]/ [phone]) 2 U FFP given for elevated INR IV fluids for hypovolemia Risks and benefits explained for an Exploratory laparotomy, possible bowel resection, possible ostomy, possible central line placement Understand and agree Code(s): K63.1 - PERFORATION OF INTESTINE (NONTRAUMATIC) (5) Intra-abdominal abscess Code(s): K65.1 - PERITONEAL ABSCESS Assessment/Plan 80 female with intraabdominal abscess from likely bowel perforation causing septic shock 2 U FFP given for elevated INR IV fluids for hypovolemia NPO For emergent exploratory laparotomy, possible bowel resection possible ostomy, possible central line placement Discussed with patient and her son Bulmaro Understand risks and benefits and would like to proceed with the emergency surgery
[2016-06-15] MEDS ORDERED: SODIUM CHLORIDE 1,000 ML IV SCH ×2 (12:15→16:45)
[2016-06-15 12:56] LABS: PLATELET ESTIMATE ADEQUATE (NORMAL)
--- NOTE | 2016-06-15 13:27 | EKG ---
Test Reason : Blood Pressure : / mmHG Vent. Rate : 068 BPM Atrial Rate : 068 BPM P-R Int : 144 ms QRS Dur : 076 ms QT Int : 382 ms P-R-T Axes : 074 057 072 degrees QTc Int : 406 ms POOR DATA QUALITY, INTERPRETATION MAY BE ADVERSELY AFFECTED NORMAL SINUS RHYTHM WITH SINUS ARRHYTHMIA ANTERIOR INFARCT (CITED ON OR BEFORE 28-MAY-2016) ABNORMAL ECG WHEN COMPARED WITH ECG OF 28-MAY-2016 02:38, PREVIOUS ECG HAS UNDETERMINED RHYTHM, NEEDS REVIEW Confirmed by ARSALAN AVERY, TRENT ([id number]) on 06/15/2016 1:27:33 PM Referred By: Confirmed By:TRENT ARRIAZA MD
--- NOTE | 2016-06-15 13:28 | CONS ---
DATE OF CONSULTATION: HISTORY: This is a readmission for this 80-year-old female from [facility] admitted now with chief complaint of severe abdominal pain. The patient is a poor historian. She had no fever on admission, but her white count was markedly elevated, and a CAT scan of the bowel showed a large pelvic abscess. She has a history of atrial fibrillation and has been on Eliquis. She is now in the ICU, and I am asked to see her for antibiotic management. Note that she was here recently in May and had been seen by Dr. Fuentes and treated for what was thought to be a cellulitis. 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 Cultures were negative, but in the past, she has had Escherichia coli growing in the urine, which has been fluoroquinolone resistant. She received a dose of fluoroquinolone in the emergency room, according to the house staff. PAST MEDICAL HISTORY: Includes hypertension, atrial fibrillation, dementia. MEDICATIONS: Digoxin, metoprolol, multivitamins, Eliquis, clonidine, Crestor, Roxicodone. ALLERGIES: PENICILLIN, however, she tolerates cephalosporins. FAMILY HISTORY: Unobtainable from patient. SOCIAL HISTORY: Former smoker. No history of alcohol use. Currently resident [facility]. REVIEW OF SYSTEMS: Respiratory: No cough, shortness of breath. Cardiac: No chest pain, palpitations. History of atrial fibrillation. Gastrointestinal: Severe abdominal pain. No vomiting, diarrhea, blood per rectum. Genitourinary: Incontinent of urine. No gross hematuria noted. Neuromuscular: No headaches, visual complaints, seizures. PHYSICAL EXAMINATION: General: She is an elderly, thin woman. Vital Signs: Weight 110 pounds, temperature 97, pulse 78, blood pressure 100/55, respirations 16, O2 saturation 94%. Neck: Supple. No adenopathy. Lungs: Clear to P and A. Heart: S1, S2. Irregular irregular with a 2/6 systolic murmur heard at the lower sternal border. Abdomen: Hyperactive bowel sounds. Mildly distended. Tender to percutaneous in the left lower quadrant. Tenderness noted on direct palpation. Extremities: Without clubbing, cyanosis, or edema. DIAGNOSTIC DATA: Echocardiogram dated January 14, 2015 shows trace aortic regurgitation, mild mitral regurgitation. The white count is 24,000, hemoglobin 10.2, hematocrit 32, platelets 346, INR 2.1. BUN 28, creatinine 1.1. Liver enzymes within normal limits. CRP 17.5. Urinalysis 1 RBC, 2 WBCs, many bacteria, negative leukocyte esterase. ASSESSMENT: An 80-year-old woman recently admitted and treated with cefazolin for cellulitis of the left leg presents now with severe abdominal pain with CT findings consistent with perforated viscus with large pelvic abscess, possible perforated diverticulitis. Clinically she appears stable with no fever, normal lactic acid, and stable vital signs. She has atrial fibrillation and has been on Eliquis. She has been seen in consultation by Surgery, Dr. Wayne, who has ordered consultation for Interventional Radiology with anticipated drainage of a large abscess. CRP and ESR have been ordered. She will be empirically treated with ceftriaxone and metronidazole 2 g daily and 500 mg every 8 hours. The case was discussed with the house staff at length. АНДРЕЙ DINH M.D. [id number]
[2016-06-15] MEDS ORDERED: SUCCINYLCHOLINE CHLORIDE 200 MG/10 ML VIAL ONE (13:29)
[2016-06-15] MEDS ORDERED: PROPOFOL 20 ML ONE (13:29)
[2016-06-15] MEDS ORDERED: DEXAMETHASONE SOD PHOSPHATE 4 MG/1 ML VIAL ONE (13:44)
[2016-06-15] MEDS ORDERED: HYDROmorphone HCL/PF 1 MG/ML VIAL (FOR PYXIS CHARGING ONLY) ONE (15:03)
[2016-06-15] MEDS ORDERED: METOPROLOL TARTRATE 5 MG/5 ML VIAL ONE (15:05)
[2016-06-15] MEDS ORDERED: PHENYLEPHRINE HCL 10 MG/1 ML SINGLE DOSE VIAL ONE (15:38)
[2016-06-15] MEDS ORDERED: NEOSTIGMINE METHYLSULFATE 0.5 MG/ML - 10 ML MDV ONE (15:47)
[2016-06-15] MEDS ORDERED: GLYCOPYRROLATE 0.2 MG/1 ML VIAL ONE (15:47)
--- NOTE | 2016-06-15 16:27 | OP ---
Operative Note - Note: Operative Date: 06/15/16 Pre-Operative Diagnosis: Intraabdominal abscess, possible perforated bowel, septic shock Operation: Exploratory laparotomy, abdominal washout, drainage of intraabdominal abscess, enterotomy with removal of fecalith and primary repair Findings: Perforated uterus Intraop consult with Dr Mercado attained Copious purulent drainage from the uterus noted Uterus noted to be hard Excisional uterine mass biopsy performed by Dr Mercado Fibrinous exudate throughout small bowel Fecalith palpated in mid-jejunum- removed and bowel repaired primarily Post-Operative Diagnosis: Other (Perforated uterus with purulent discharge, intraabdominal abscess, small bowel fecalith) Surgeon: Jace Wayne Development And Planning Engineer: Marvel Mercado Anesthesia: General Specimens Removed: Fecalith, fibrinous exudate, peritoneal fluid for cell count , cytology and culture. Uterine mass biopsy Estimated Blood Loss (mls): 500 Drains & Tubes with Location: JES, vasques Operative Report Dictated: Yes
[2016-06-15] MEDS ORDERED: ACETAMINOPHEN 1000 MG/100 ML VIAL (NON FORMULARY) IVPB PRN (16:31)
[2016-06-15] MEDS ORDERED: HYDROmorphone HCL CARPU-JECT 1 MG/1 ML DISP.SYRIN IVPB PRN (16:31)
[2016-06-15] MEDS ORDERED: LABETALOL HCL 5 MG/1 ML (100MG/20 ML VIAL) ONE (17:02)
[2016-06-15] MEDS ORDERED: HYDROmorphone HCL CARPU-JECT 1 MG/1 ML DISP.SYRIN IVPUSH PRN (17:10)
[2016-06-15] MEDS ORDERED: ONDANSETRON 4 MG/2 ML VIAL IVPUSH PRN (17:10)
[2016-06-15] MEDS ORDERED: NALOXONE HCL 0.4 MG/ML VIAL ONE (17:17)
[2016-06-15 17:18] LABS: PERITONEAL FLUID LYMPHOCYTE 3 %; PERITONEAL FLUID NEUTROPHIL 91 %
[2016-06-15 17:19] LABS: PERITONEAL FLUID EOSINOPHIL 1 %; PERITONEAL FLUID MACROPHAGE 3 %; PERITONEAL FLUID MESOTHELIAL 1 %; PERITONEAL FLUID MONOCYTE 1 %
[2016-06-15 17:49] LABS: ARTERIAL BLOOD GAS pH 7.06 (7.35-7.45)
[2016-06-15 17:50] LABS: ALLENS TEST POSITIVE; ART PUNCT SITE LEFT RADIAL; ARTERIAL BLD GAS O2 SATURATION 98.2 % (90-98.9); ARTERIAL BLOOD GAS BASE EXCESS -6.9 meq/l (-2-2); ARTERIAL BLOOD GAS HCO3 24.7 meq/L (22-26); LPM/O2% 100%; PT. ON O2? YES; TYPE OF O2 NON REBREATHER
[2016-06-15 18:25] LABS: MCH 28.1 pg (25.7-33.7); MEAN CELL VOLUME 90.9 fl (80-96); MEAN PLT VOLUME 7.8 fl (7.5-11.1); PLATELET COUNT 662 K/MM3 (134-434); RDW 14.7 % (11.6-15.6)
[2016-06-15 18:45] LABS: WHITE BLOOD COUNT 31.2 K/mm3 (4.0-10.0)
[2016-06-15 18:51] LABS: ALBUMIN 2.2 g/dl (3.4-5.0); CALCIUM 7.7 mg/dL (8.5-10.1); CREATININE 0.9 mg/dL (0.55-1.02)
[2016-06-15 18:53] LABS: BILIRUBIN,TOTAL 0.7 mg/dL (0.2-1.0); TOT PROT 5.5 g/dl (6.4-8.2)
[2016-06-15] MEDS ORDERED: FENTANYL INJECTION 500 MCG in DEXTROSE 5%-WATER - 90 ML IJ SCH (20:00)
--- NOTE | 2016-06-15 20:12 | CON.GI ---
Consult Consult Specialty:: GASTROENTEROLOGY - History of Present Illness Chief Complaint: PELVIC ABSCESS/FLUID History of Present Illness: UNABLE TO GIVE HISTORY . ADMITTED TO ICU FROM [facility] DUE TO SEVERE ABDOMINAL PAIN, ELEVATED WBC AND LARGE PELVIC ABSCESS. - History Source History Provided By: Medical Record Limitations to Obtaining History: Dementia - Past Medical History Cardio/Vascular: Yes: AFIB, HTN Renal/: Yes: UTI (hx of ) - Past Surgical History Past Surgical History: Yes: Mastectomy (Right- for Cancer) Additional Surgical History: Surgery for bowel obstruction in 2000- possible resection per the son - Alcohol/Substance Use Hx Alcohol Use: No - Smoking History Smoking history: Former smoker Have you smoked in the past 12 months: No If you are a former smoker, when did you quit?: 1984 - Social History Usual Living Arrangement: Assisted Living Home Medications - Allergies Allergies/Adverse Reactions: Allergies Allergy/AdvReac Type Severity Reaction Status Date / Time Penicillins Allergy Verified 06/15/16 01:05 - Home Medications Home Medications: Ambulatory Orders Digoxin [Lanoxin -] 0.125 mg PO DAILY tablet 01/16/15 Magnesium Oxide [Mag-Ox -] 400 mg PO BID tablet 01/16/15 Metoprolol Succinate [Toprol XL -] 50 mg PO DAILY tab.sr.24h 01/16/15 Multivitamins [Multivit ([facility] Formul[facility])] 1 tab PO DAILY tab 01/16/15 Apixaban [Eliquis] 2.5 mg PO BID 05/28/16 Citalopram Hydrobromide [Celexa -] 10 mg PO DAILY 05/28/16 Clonazepam [Klonopin -] 0.5 mg PO TID 05/28/16 Clonidine HCl 0.1 mg PO BID 05/28/16 Acetaminophen [Tylenol .Regular Strength -] 650 mg PO Q6H PRN #0 tablet Rosuvastatin [Crestor -] 5 mg PO HS tablet 06/01/16 Oxycodone HCl [Roxicodone -] 5 mg PO ONCE 06/15/16 Family Disease History - Family Disease History Family History: Unable to Obtain Review of Systems Unable to obtain ROS, reason: DEMENTIA Physical Exam-GI Vital Signs: Vital Signs Temperature 97.2 F L 06/15/16 17:10 Pulse Rate 72 06/15/16 19:00 Respiratory Rate 14 06/15/16 19:47 Blood Pressure 146/76 06/15/16 19:00 O2 Sat by Pulse Oximetry (%) 96 06/15/16 19:47 Constitutional: Yes: Calm, Other (DOES NOT COMMUNICATE) Eyes: Yes: Conjunctiva Clear HENT: Yes: Atraumatic Neck: Yes: Supple Cardiovascular: Yes: Pulse Irregular Respiratory: Yes: Rhonchi ...Auscultate: Yes: Hypoactive Bowel Sounds ...Palpate: Yes: Firm/Rigid, Tenderness Extremities: Yes: WNL Labs: CBC, BMP 06/15/16 17:30 06/15/16 17:30 INR, PTT INR 2.10 (0.82-1.09) H D 06/15/16 04:52 Laboratory Tests 06/15/16 06/15/16 06/15/16 04:52 05:00 09:12 WBC 24.0 H D RBC 3.59 L Hgb 10.2 L Hct 32.0 L MCV 89.2 MCHC 31.8 L RDW 13.7 Plt Count 346 MPV 7.2 L Neutrophils % 83.0 H Lymphocytes % 2.0 L D Monocytes % 7.0 Band Neutrophils 8.0 Differential Comment Manual diff done Platelet Estimate Adequate INR 2.10 H D PTT (Actin FS) 35.0 H Sodium Potassium Chloride Carbon Dioxide Anion Gap BUN Creatinine Creat Clearance w eGFR Random Glucose Calcium Total Bilirubin AST C-Reactive Protein 17.5 H D B-Natriuretic Peptide 776.72 H Total Protein Albumin 06/15/16 06/15/16 09:12 17:30 WBC RBC Hgb Hct MCV MCHC RDW Plt Count MPV Neutrophils % Lymphocytes % Monocytes % Band Neutrophils Differential Comment Platelet Estimate INR PTT (Actin FS) Sodium 141 Potassium 4.9 Chloride 109 H Carbon Dioxide 24 Anion Gap 8 BUN 22 H D Creatinine 0.9 Creat Clearance w eGFR 59.94 Random Glucose 130 H Calcium 7.7 L Total Bilirubin 0.7 AST 222 H D C-Reactive Protein 20.0 H D B-Natriuretic Peptide Total Protein 6.2 L 5.5 L Albumin 2.1 L Imaging - Results Cat Scan: Image Reviewed Problem List - Problems (1) Pelvic fluid collection Assessment/Plan: THE CASE WAS DISCUSSED WITH DR ROY. THIS APPEARS TO BE A FLUID COLLECTION POSSIBLE ABSCESS IN THE PELVIS. THE ETIOLOGY OF THIS IS UNCERTAIN. THE POSSIBLITIES INCLUDE PERFORATED BOWEL,DIVERTICULITIS ETC. I AGREE WITH THE EMERGENT NEED FOR SURGERY. SHE IS CURRENTLY IN SEPTIC SHOCK. HER INCREASED LIVER ENZYMES ARE PROBABLY RELATED TO THAT. SHE IS IN AFIB AND IS ON ELIQUIS. WE HAVE DISCUSSED THE NEED FOR A UNIT OF PLATELETS AND FFP DURING THE SURGERY SHE IS AN EXTREME RISK FOR BLEEDING. I WILL FOLLOW HER WITH DR ROY POST SURGERY. SHE WILL NEED icu CARE POST OPERATIVELY. SHE IS A VERY HIGH RISK AND VERY CRITICAL. CRITICAL CARE TIME 45 MINUTES. Code(s): R18.8 - OTHER ASCITES (2) Septic shock Code(s): A41.9 - SEPSIS, UNSPECIFIED ORGANISM R65.21 - SEVERE SEPSIS WITH SEPTIC SHOCK (3) Dementia Code(s): F03.90 - UNSPECIFIED DEMENTIA WITHOUT BEHAVIORAL DISTURBANCE (4) Afib Code(s): I48.91 - UNSPECIFIED ATRIAL FIBRILLATION
[2016-06-15 20:14] LABS: ARTERIAL BLD GAS O2 SATURATION 97.7 % (90-98.9); ARTERIAL BLOOD GAS BASE EXCESS -2.9 meq/l (-2-2); ARTERIAL BLOOD GAS HCO3 22.5 meq/L (22-26); ARTERIAL BLOOD GAS pH 7.32 (7.35-7.45)
[2016-06-15 20:16] LABS: ALLENS TEST POSITIVE; ART PUNCT SITE LEFT RADIAL
[2016-06-15 20:17] LABS: LPM/O2% 40%; MECH. VENT. YES; PT. ON O2? YES; TYPE OF O2 MECHANICAL VENT; VENT RATE 12; VT/PRESS 400ML
[2016-06-15 21:23] LABS: PLATELET ESTIMATE SLT INCREASED (NORMAL)
[2016-06-15] MEDS: FENTANYL INJECTION 500 MCG in DEXTROSE 5%-WATER - 90 ML IVPB SCH (21:43)
[2016-06-16] MEDS: METRONIDAZOLE 500 MG PREMIXED 100 ML IVPB SCH ×3 (02:30→18:27)
[2016-06-16 05:58] LABS: MCH 29.1 pg (25.7-33.7); MEAN CELL VOLUME 88.2 fl (80-96); MEAN PLT VOLUME 7.7 fl (7.5-11.1); PLATELET COUNT 463 K/MM3 (134-434); RDW 14.1 % (11.6-15.6); WHITE BLOOD COUNT 22.2 K/mm3 (4.0-10.0)
[2016-06-16 06:32] LABS: INR 2.04 (0.82-1.09); PROTHROMBIN TIME (PATIENT) 22.8 SEC (9.98-11.88)
[2016-06-16 06:35] LABS: ACTIVATED PTT 31.8 SECONDS (26.9-34.4)
[2016-06-16] MEDS: FENTANYL INJECTION 500 MCG in DEXTROSE 5%-WATER - 90 ML IVPB SCH (06:43)
[2016-06-16 06:46] LABS: CALCIUM 7.8 mg/dL (8.5-10.1); MAGNESIUM 2.1 mg/dL (1.8-2.4)
[2016-06-16 06:49] LABS: BILIRUBIN,TOTAL 0.3 mg/dL (0.2-1.0); CREATININE 0.9 mg/dL (0.55-1.02); TOT PROT 5.4 g/dl (6.4-8.2)
--- NOTE | 2016-06-16 07:17 | PN ---
Progress Note, Physician Chief Complaint: ID ICU follow up for this 80 year old female from [facility] who presented with abd pain and found to have a large pelvic abscess. Elevated WBC count on admission and when I saw her yesterday am the plan had been to take her to Interventional radiology to drain the collection etiology of which unknown. Since then went to OR with findings of perforated uterus abscess with purulent drainage and fecolith mid jejunum. Currently intubated stable on no pressors O2 sats good. Antibiotics Ceftriaxone and metronidazole. Dose of levofloxacin given per BENEFITS MANAGER. - Current Medication List Current Medications: Active Medications Acetaminophen (Ofirmev Injection -) 1,000 mg IVPB Q6H PRN PRN Reason: FEVER OR PAIN Stop: 06/16/16 10:32 Sodium Chloride (Normal Saline -) 1,000 mls @ 125 mls/hr IV ASDIR DANA Last Admin: 06/15/16 17:39 Dose: 125 mls/hr Ceftriaxone Sodium (Rocephin 2gm Ivpb (Pre-Docked)) 100 mls @ 200 mls/hr IVPB DAILY [facility] Metronidazole (Flagyl 500mg Premixed Ivpb -) 100 mls @ 100 mls/hr IVPB Q8H-IV DANA Last Admin: 06/16/16 02:30 Dose: 100 mls/hr Fentanyl 500 mcg/ Dextrose 100 mls @ 5 mls/hr IVPB TITR DANA PRN Reason: 25 MCG/HR Last Admin: 06/16/16 06:43 Dose: 100 mls/hr Ondansetron HCl (Zofran Injection) 4 mg IVPB Q6H PRN PRN Reason: NAUSEA - Objective Vital Signs: Vital Signs Temperature 99.2 F 06/16/16 06:00 Pulse Rate 92 H 06/16/16 06:00 Respiratory Rate 18 06/16/16 06:00 Blood Pressure 136/72 06/16/16 06:00 O2 Sat by Pulse Oximetry (%) 96 06/15/16 19:47 Constitutional: Yes: No Distress, Other (Intubated) Neck: Yes: WNL, Supple, Trachea Midline Cardiovascular: Yes: Regular Rate and Rhythm, Murmur, S1, S2, Other (Sysytolic murumur LSB apex) Gastrointestinal: Yes: Soft, Other (post op dressing) Extremities: No: Cool, Cyanosis, Erythema Edema: No Labs: CBC, BMP 06/16/16 05:05 06/16/16 05:05 INR, PTT INR 2.04 (0.82-1.09) H 06/16/16 05:05 Problem List - Problems (1) Diverticulitis of colon with perforation Code(s): K57.20 - DVTRCLI OF LG INT W PERFORATION AND ABSCESS W/O BLEEDING (2) Pelvic fluid collection Code(s): R18.8 - OTHER ASCITES (3) Septic shock Code(s): A41.9 - SEPSIS, UNSPECIFIED ORGANISM R65.21 - SEVERE SEPSIS WITH SEPTIC SHOCK Assessment/Plan Microbiology 06/15/16 05:00 Nasopharyngeal Swab Respiratory Virus Panel - Preliminary 06/15/16 02:50 Blood - Peripheral Venous Blood Culture - Preliminary NO GROWTH OBTAINED AFTER 24 HOURS, INCUBATION TO CONTINUE FOR 4 DAYS. 06/15/16 01:30 Blood - Peripheral Venous Blood Culture - Preliminary NO GROWTH OBTAINED AFTER 24 HOURS, INCUBATION TO CONTINUE FOR 4 DAYS. Laboratory Tests 06/15/16 06/15/16 06/15/16 01:56 17:30 17:38 WBC 31.2 H* Hgb 9.9 L Hct Plt Count 662 H D Band Neutrophils 12.0 H D INR ABG pH 7.06 L* Oxygen Flow Rate 100% BUN Creatinine Creat Clearance w eGFR Alkaline Phosphatase Urine RBC <1 Urine WBC 2 Urine Bacteria Many 06/16/16 06/16/16 06/16/16 05:05 05:05 05:05 WBC 22.2 H Hgb 9.4 L Hct 28.5 L Plt Count 463 H D Band Neutrophils INR 2.04 H ABG pH Oxygen Flow Rate BUN 24 H Creatinine 0.9 Creat Clearance w eGFR 59.94 Alkaline Phosphatase 113 Urine RBC Urine WBC Urine Bacteria Assessment Intrabdominal sepsis Perforated uterus with abscess collection Atrial fibrillation Post surgery day 1 repair of uterus with collection repeair small bowel fecolith Dementia Plan Operative culture sent Extubation per critical care Continue current antibiotics as ordered [place] [facility] 38 minutes spent reviewing chart examining patient critical care [facility]
[2016-06-16 07:24] LABS: ALLENS TEST POSITIVE; ART PUNCT SITE LEFT RADIAL; ARTERIAL BLD GAS O2 SATURATION 97.1 % (90-98.9); ARTERIAL BLOOD GAS BASE EXCESS -2.2 meq/l (-2-2); ARTERIAL BLOOD GAS HCO3 21.9 meq/L (22-26); ARTERIAL BLOOD GAS PO2 90.8 mmHg (68-100); ARTERIAL BLOOD GAS pH 7.39 (7.35-7.45)
[2016-06-16 07:25] LABS: LPM/O2% 35%; MECH. VENT. A/C; PT. ON O2? YES; TYPE OF O2 MEC.VENT; VENT RATE 5; VT/PRESS 12
--- NOTE | 2016-06-16 07:58 | PN ---
Progress Note, Physician Chief Complaint: Pt intubated and sedated with fentanyl, but now following commands and ready for extubation when weaned from vent. Otherwise no anesthesia complaints. - Current Medication List Current Medications: Active Medications Acetaminophen (Ofirmev Injection -) 1,000 mg IVPB Q6H PRN PRN Reason: FEVER OR PAIN Stop: 06/16/16 10:32 Sodium Chloride (Normal Saline -) 1,000 mls @ 125 mls/hr IV ASDIR DANA Last Admin: 06/15/16 17:39 Dose: 125 mls/hr Ceftriaxone Sodium (Rocephin 2gm Ivpb (Pre-Docked)) 100 mls @ 200 mls/hr IVPB DAILY DA[facility] Metronidazole (Flagyl 500mg Premixed Ivpb -) 100 mls @ 100 mls/hr IVPB Q8H-IV DANA Last Admin: 06/16/16 02:30 Dose: 100 mls/hr Ondansetron HCl (Zofran Injection) 4 mg IVPB Q6H PRN PRN Reason: NAUSEA - Objective Vital Signs: Vital Signs Temperature 99.2 F 06/16/16 06:00 Pulse Rate 92 H 06/16/16 06:00 Respiratory Rate 18 06/16/16 07:12 Blood Pressure 136/72 06/16/16 06:00 O2 Sat by Pulse Oximetry (%) 96 06/15/16 19:47 Constitutional: Yes: Well Nourished, No Distress, Calm Respiratory: Yes: Intubated Neurological: Yes: WNL, Alert, Other (follows commands) Labs: CBC, BMP 06/16/16 05:05 06/16/16 05:05 INR, PTT INR 2.04 (0.82-1.09) H 06/16/16 05:05 Assessment/Plan POD#1 s/p abdominal washout, drain placement, uterine biopsy, and fecalith removal. Ready for extubation. Please extubate when respiratory is available.
[2016-06-16] MEDS: CEFTRIAXONE 100 ML IVPB SCH (09:39)
--- NOTE | 2016-06-16 09:56 | PN ---
Progress Note (short form) - Note Progress Note: Patient seen and examined in the ICU. Awake on CPAP mode of vent. No pressors. S/P Exploratory laparotomy/abdominal washout/drainage of intraabdominal abscess/ enterotomy with removal of fecalith and primary repair due to perforated uterus. Additional findings copious : purulent drainage from the uterus, fibrinous exudate throughout small bowel. CXR: ETT low / non-specific left basilar atelectasis / minimal right pneumoperitoneum Intake & Output 06/13/16 06/14/16 06/15/16 06/16/16 23:59 23:59 23:59 23:59 Intake Total 6504 1700 Output Total 880 300 Balance 5624 1400 Weight 110 lb Last Vital Signs Temp Pulse Resp BP Pulse Ox 99.2 F 95 H 15 141/78 96 06/16/16 06:00 06/16/16 08:00 06/16/16 08:00 06/16/16 08:00 06/15/16 19:47 Active Medications Acetaminophen (Ofirmev Injection -) 1,000 mg IVPB Q6H PRN PRN Reason: FEVER OR PAIN Stop: 06/16/16 10:32 Sodium Chloride (Normal Saline -) 1,000 mls @ 125 mls/hr IV ASDIR [facility] Last Admin: 06/15/16 17:39 Dose: 125 mls/hr Ceftriaxone Sodium (Rocephin 2gm Ivpb (Pre-Docked)) 100 mls @ 200 mls/hr IVPB DAILY [facility] Last Admin: 06/16/16 09:39 Dose: 200 mls/hr Metronidazole (Flagyl 500mg Premixed Ivpb -) 100 mls @ 100 mls/hr IVPB Q8H-IV [facility] Last Admin: 06/16/16 09:38 Dose: 100 mls/hr Ondansetron HCl (Zofran Injection) 4 mg IVPB Q6H PRN PRN Reason: NAUSEA Constitutional: Yes: Awake and alert, Intubated Eyes: Yes: (-) Pallor HENT: Yes: WNL Cardiovascular: Yes: S1, S2, Other (sinus on tele) Respiratory: Yes: Intubated, scattered rhonchi No: wheezes Gastrointestinal: Yes: Hypoactive Bowel Sounds, (+) mild appropriate tenderness ...Rectal Exam: Yes: Deferred Musculoskeletal: Yes: Other (bilateral patellar inflammation) Edema: Yes Edema: LUE: Trace Peripheral Pulses WNL: Yes (+2 bilateral pedal pulses) Integumentary: Yes: WNL Neurological: Yes: Alert Psychiatric: Yes: WNL Labs: Laboratory Results - last 24 hr 06/15/16 06/15/16 06/15/16 05:00 09:12 09:12 WBC RBC Hgb Hct MCV MCHC RDW Plt Count MPV Neutrophils % 83.0 H Lymphocytes % 2.0 L D Monocytes % 7.0 Eosinophils % 0.0 Basophils % 0.0 Band Neutrophils 8.0 Myelocytes Differential Comment Manual diff done Platelet Estimate Adequate Morphology Comment INR PTT (Actin FS) Puncture Site ABG pH ABG pCO2 at Pt Temp ABG pO2 at Pt Temp ABG HCO3 ABG O2 Sat (Measured) ABG O2 Content ABG Base Excess Brian Test O2 Delivery Device Oxygen Flow Rate Vent Mode Vent Rate Mechanical Rate PEEP Pressure Support Vent Sodium 137 Potassium 5.4 H Chloride 101 Carbon Dioxide 26 Anion Gap 10 BUN 30 H Creatinine 1.1 H Creat Clearance w eGFR 47.55 Random Glucose 116 H Calcium 8.2 L Phosphorus Magnesium Total Bilirubin 0.6 AST 413 H D ALT 243 H D Alkaline Phosphatase 148 H D C-Reactive Protein 20.0 H D Total Protein 6.2 L Albumin 2.1 L Peritoneal WBC Peritoneal RBC Periton Neutrophils Periton Lymphocytes Peritoneal Monocytes Peritoneal Eosinophils Periton Mesothelial Periton Macrophages Antibody Identification Not Reportable Antigen Identification Y 06/15/16 06/15/16 06/15/16 10:00 15:45 17:30 WBC 31.2 H* RBC 3.53 L Hgb 9.9 L Hct 32.1 L MCV 90.9 MCHC 31.0 L RDW 14.7 Plt Count 662 H D MPV 7.8 Neutrophils % 80.0 Lymphocytes % 5.0 L D Monocytes % 2.0 L Eosinophils % Basophils % Band Neutrophils 12.0 H D Myelocytes 1 Differential Comment Manual diff done Platelet Estimate Slt increased Morphology Comment Slide scanned INR PTT (Actin FS) Puncture Site ABG pH ABG pCO2 at Pt Temp ABG pO2 at Pt Temp ABG HCO3 ABG O2 Sat (Measured) ABG O2 Content ABG Base Excess Brian Test O2 Delivery Device Oxygen Flow Rate Vent Mode Vent Rate Mechanical Rate PEEP Pressure Support Vent Sodium Potassium Chloride Carbon Dioxide Anion Gap BUN Creatinine Creat Clearance w eGFR Random Glucose Calcium Phosphorus Magnesium Total Bilirubin AST ALT Alkaline Phosphatase C-Reactive Protein Cancelled Total Protein Albumin Peritoneal WBC 7718 Peritoneal RBC 83071 Periton Neutrophils 91 Periton Lymphocytes 3 Peritoneal Monocytes 1 Peritoneal Eosinophils 1 Periton Mesothelial 1 Periton Macrophages 3 Antibody Identification Antigen Identification 06/15/16 06/15/16 06/15/16 17:30 17:38 20:01 WBC RBC Hgb Hct MCV MCHC RDW Plt Count MPV Neutrophils % Lymphocytes % Monocytes % Eosinophils % Basophils % Band Neutrophils Myelocytes Differential Comment Platelet Estimate Morphology Comment INR PTT (Actin FS) Puncture Site Left radial Left radial ABG pH 7.06 L* 7.32 L D ABG pCO2 at Pt Temp 92.6 H* 44.8 D ABG pO2 at Pt Temp 230.0 H* 124.0 H D ABG HCO3 24.7 22.5 ABG O2 Sat (Measured) 98.2 97.7 ABG O2 Content 14.2 L 13.3 L ABG Base Excess -6.9 L -2.9 L Brian Test Positive Positive O2 Delivery Device Non rebreather Mechanical vent Oxygen Flow Rate 100% 40% Vent Mode A/c Vent Rate 12 Mechanical Rate Yes PEEP 0.0 5.0 Pressure Support Vent 400ml Sodium 141 Potassium 4.9 Chloride 109 H Carbon Dioxide 24 Anion Gap 8 BUN 22 H D Creatinine 0.9 Creat Clearance w eGFR 59.94 Random Glucose 130 H Calcium 7.7 L Phosphorus Magnesium Total Bilirubin 0.7 AST 222 H D ALT 164 H D Alkaline Phosphatase 136 H C-Reactive Protein Total Protein 5.5 L Albumin 2.2 L Peritoneal WBC Peritoneal RBC Periton Neutrophils Periton Lymphocytes Peritoneal Monocytes Peritoneal Eosinophils Periton Mesothelial Periton Macrophages Antibody Identification Antigen Identification 06/16/16 06/16/16 06/16/16 05:05 05:05 05:05 WBC 22.2 H RBC 3.24 L Hgb 9.4 L Hct 28.5 L MCV 88.2 MCHC 33.0 RDW 14.1 Plt Count 463 H D MPV 7.7 Neutrophils % Lymphocytes % Monocytes % Eosinophils % Basophils % Band Neutrophils Myelocytes Differential Comment Platelet Estimate Morphology Comment INR 2.04 H PTT (Actin FS) 31.8 Puncture Site ABG pH ABG pCO2 at Pt Temp ABG pO2 at Pt Temp ABG HCO3 ABG O2 Sat (Measured) ABG O2 Content ABG Base Excess Brian Test O2 Delivery Device Oxygen Flow Rate Vent Mode Vent Rate Mechanical Rate PEEP Pressure Support Vent Sodium 141 Potassium 4.6 Chloride 108 H Carbon Dioxide 23 Anion Gap 10 BUN 24 H Creatinine 0.9 Creat Clearance w eGFR 59.94 Random Glucose 116 H Calcium 7.8 L Phosphorus 3.0 D Magnesium 2.1 Total Bilirubin 0.3 D AST 111 H D ALT 128 H D Alkaline Phosphatase 113 C-Reactive Protein Total Protein 5.4 L Albumin 2.0 L Peritoneal WBC Peritoneal RBC Periton Neutrophils Periton Lymphocytes Peritoneal Monocytes Peritoneal Eosinophils Periton Mesothelial Periton Macrophages Antibody Identification Antigen Identification 06/16/16 07:15 WBC RBC Hgb Hct MCV MCHC RDW Plt Count MPV Neutrophils % Lymphocytes % Monocytes % Eosinophils % Basophils % Band Neutrophils Myelocytes Differential Comment Platelet Estimate Morphology Comment INR PTT (Actin FS) Puncture Site Left radial ABG pH 7.39 ABG pCO2 at Pt Temp 36.7 ABG pO2 at Pt Temp 90.8 D ABG HCO3 21.9 L ABG O2 Sat (Measured) 97.1 ABG O2 Content 12.1 L ABG Base Excess -2.2 L Brian Test Positive O2 Delivery Device Mec.vent Oxygen Flow Rate 35% Vent Mode 400 Vent Rate 5 Mechanical Rate A/c PEEP Pressure Support Vent 12 Sodium Potassium Chloride Carbon Dioxide Anion Gap BUN Creatinine Creat Clearance w eGFR Random Glucose Calcium Phosphorus Magnesium Total Bilirubin AST ALT Alkaline Phosphatase C-Reactive Protein Total Protein Albumin Peritoneal WBC Peritoneal RBC Periton Neutrophils Periton Lymphocytes Peritoneal Monocytes Peritoneal Eosinophils Periton Mesothelial Periton Macrophages Antibody Identification Antigen Identification Assessment/Plan S/P Exploratory laparotomy/abdominal washout/drainage of intraabdominal abscess/ enterotomy with removal of fecalith and primary repair due to perforated uterus. Additional findings copious : purulent drainage from the uterus, fibrinous exudate throughout small bowel. HTN HPL A-fib previously on Eliquis Dementia Anxiety Wean to extubate Change IVF ABX per ID AC when ok with surgery SCDs Pain control Once extubated -> Incentive Spirometry Dr Ybarra CCTime 35"
[2016-06-16] MEDS: D5-1/2NS+20 MEQ KCL - 1,000 ML IV SCH (10:15)
--- NOTE | 2016-06-16 11:08 | PN ---
Progress Note, Physician Chief Complaint: Pt is now extubated; wants medication to help her sleep; denies abdominal pain. History of Present Illness: 80yr old white woman presented to ED via EMS from [facility] with c/ o abd pain. According to patient son, patient has been having abd pain all day starting at 6pm, pain progressed at 1015pm- patient given oxycontin with no relief- patient sent to this ED for evaluation. Son inform typewriter ribbon winder that patient recently admitted May 27 for "blood infection" and d/c to [facility] for rehab but has not gotten out of bed per son. Patient also has not had a BM today. Denies any other complaints at this time. - Current Medication List Current Medications: Active Medications Ceftriaxone Sodium (Rocephin 2gm Ivpb (Pre-Docked)) 100 mls @ 200 mls/hr IVPB DAILY [facility] Last Admin: 06/16/16 09:39 Dose: 200 mls/hr Metronidazole (Flagyl 500mg Premixed Ivpb -) 100 mls @ 100 mls/hr IVPB Q8H-IV [facility] Last Admin: 06/16/16 09:38 Dose: 100 mls/hr Potassium Chloride/Dextrose/Sod Cl (D5-1/2ns+20 Meq Kcl -) 1,000 mls @ 75 mls/ hr IV ASDIR DANA Last Admin: 06/16/16 10:15 Dose: 75 mls/hr Ondansetron HCl (Zofran Injection) 4 mg IVPB Q6H PRN PRN Reason: NAUSEA - Objective Vital Signs: Vital Signs Temperature 99.2 F 06/16/16 06:00 Pulse Rate 93 H 06/16/16 10:00 Respiratory Rate 15 06/16/16 10:00 Blood Pressure 163/77 06/16/16 10:00 O2 Sat by Pulse Oximetry (%) 97 06/16/16 10:00 Constitutional: Yes: Anxious, Mild Distress Eyes: Yes: WNL HENT: Yes: WNL Neck: Yes: WNL Cardiovascular: Yes: Pulse Irregular Respiratory: Yes: Tachypnea Gastrointestinal: Yes: Soft ...Rectal Exam: Yes: Deferred Genitourinary: No: Anuria Breast(s): Yes: Right (hx breast CA) Musculoskeletal: Yes: Muscle Weakness Extremities: Yes: Cool Edema: No Peripheral Pulses WNL: Yes Neurological: Yes: Alert, Oriented, Weakness Psychiatric: Yes: Other (anxious) Labs: CBC, BMP 06/16/16 05:05 06/16/16 05:05 INR, PTT INR 2.04 (0.82-1.09) H 06/16/16 05:05 Abnormal Lab Results 06/15/16 06/15/16 06/15/16 09:12 09:12 17:30 WBC 31.2 H* RBC 3.53 L Hgb 9.9 L Hct 32.1 L MCHC 31.0 L Plt Count 662 H D Neutrophils % 83.0 H Lymphocytes % 2.0 L D 5.0 L D Monocytes % 2.0 L Band Neutrophils 12.0 H D INR ABG pH ABG pCO2 at Pt Temp ABG pO2 at Pt Temp ABG HCO3 ABG O2 Content ABG Base Excess Chloride BUN Random Glucose Calcium AST ALT Alkaline Phosphatase C-Reactive Protein 20.0 H D Total Protein Albumin 06/15/16 06/15/16 06/15/16 17:30 17:38 20:01 WBC RBC Hgb Hct MCHC Plt Count Neutrophils % Lymphocytes % Monocytes % Band Neutrophils INR ABG pH 7.06 L* 7.32 L D ABG pCO2 at Pt Temp 92.6 H* ABG pO2 at Pt Temp 230.0 H* 124.0 H D ABG HCO3 ABG O2 Content 14.2 L 13.3 L ABG Base Excess -6.9 L -2.9 L Chloride 109 H BUN 22 H D Random Glucose 130 H Calcium 7.7 L AST 222 H D ALT 164 H D Alkaline Phosphatase 136 H C-Reactive Protein Total Protein 5.5 L Albumin 2.2 L 06/16/16 06/16/16 06/16/16 05:05 05:05 05:05 WBC 22.2 H RBC 3.24 L Hgb 9.4 L Hct 28.5 L MCHC Plt Count 463 H D Neutrophils % Lymphocytes % Monocytes % Band Neutrophils INR 2.04 H ABG pH ABG pCO2 at Pt Temp ABG pO2 at Pt Temp ABG HCO3 ABG O2 Content ABG Base Excess Chloride 108 H BUN 24 H Random Glucose 116 H Calcium 7.8 L AST 111 H D ALT 128 H D Alkaline Phosphatase C-Reactive Protein Total Protein 5.4 L Albumin 2.0 L 06/16/16 07:15 WBC RBC Hgb Hct MCHC Plt Count Neutrophils % Lymphocytes % Monocytes % Band Neutrophils INR ABG pH ABG pCO2 at Pt Temp ABG pO2 at Pt Temp ABG HCO3 21.9 L ABG O2 Content 12.1 L ABG Base Excess -2.2 L Chloride BUN Random Glucose Calcium AST ALT Alkaline Phosphatase C-Reactive Protein Total Protein Albumin Problem List - Problems (1) Afib Assessment/Plan: Pt was on metoprolol at home; may use IV metoprolol for HR and BP until able to take PO. On apixaban at home. Code(s): I48.91 - UNSPECIFIED ATRIAL FIBRILLATION (2) Intra-abdominal abscess Code(s): K65.1 - PERITONEAL ABSCESS (3) Anxiety Code(s): F41.9 - ANXIETY DISORDER, UNSPECIFIED (4) HTN (hypertension) Assessment/Plan: On metoprolol and clonidine at home; last dose of clonidine 2 days ago, per pt and chart. Risk of rebound hypertension when abruptly stopping clonidine (exacerbated when also on metoprolol). Will restart metoprolol IV and clonidine patch (though ideally should overlap patch 1-2 days with oral agent) until pt is able to take PO. (May have to remove clonidine patch for procedures, eg MRI, because of aluminum , etc.). Code(s): I10 - ESSENTIAL (PRIMARY) HYPERTENSION Qualifiers: Hypertension type: essential hypertension Qualified Code(s): I10 - Essential (primary) hypertension (5) Sepsis Assessment/Plan: No extubated. on antibiotics; f/u c/s. Maintain hydration. LVEF WNL by ECHO. Code(s): A41.9 - SEPSIS, UNSPECIFIED ORGANISM Qualifiers: Sepsis type: Escherichia coli Qualified Code(s): A41.51 - Sepsis due to Escherichia coli [E. coli] (6) Anemia Code(s): D64.9 - ANEMIA, UNSPECIFIED (7) GI tract abscess Assessment/Plan: On antibiotics; Pain managment. FLuids; f/u electrolytes, Hb. Surgical f/u. Code(s): K63.0 - ABSCESS OF INTESTINE
[2016-06-16] MEDS: METOPROLOL TARTRATE 5 MG/5 ML VIAL IVPUSH PRN ×2 (11:50→18:30)
--- NOTE | 2016-06-16 12:08 | PN ---
Progress Note (short form) - Note Progress Note: General Surgery- Dr. Wayne Patient seen and examined. Patient states she is not having much abdominal pain. Patient is still npo, vasques is in place. Denies flatus, fever, chills, nausea, vomiting. Last Vital Signs Temp Pulse Resp BP Pulse Ox 99.2 F 104 H 15 163/89 97 06/16/16 06:00 06/16/16 11:50 06/16/16 10:00 06/16/16 11:50 06/16/16 10:00 CBC, BMP 06/16/16 05:05 06/16/16 05:05 JES output 150 ml Exam: Gen: NAD, venti mask in place Abd: Dressing clean, dry, intact, abd soft, nondistended, mild tenderness with palp around incision, JES drain in place with serosanguineous drainage, with some purulence : Vasques catheter in place with straw yellow urine in bag <Angella Mcghee - Last Filed: 06/16/16 12:22> - Note Progress Note: Agree POD 1 Exploratory laparotomy Perforated uterus with purulent discharge noted Reintubated last night Now extubated Pain controlled with medication NPO Afebrile BP 130-160/60-80s HR 80-100s Dressing intact JES in place- serosanguinous/purulent WBC 22 H/H stable- 02/02 Continue antibiotics F/U uterine mass biopsy NPO CBC in am- if stable, will likely start clears in am No anticoagulation- will monitor next several H/H to make sure it remains stable Once anticoagulation is to be started would start with IV heparin not eliquis in case patient need any other possible intervention <Jace Wayne - Last Filed: 06/16/16 12:34> Problem List - Problems (1) Intra-abdominal abscess Code(s): K65.1 - PERITONEAL ABSCESS (2) Pelvic fluid collection Assessment/Plan: POD#1 s/p exploratory laparotomy, abdominal washout, drainage of intraabdominal abscess, excisional uterine mass biopsy, enterotomy with removal of fecalith and primary repair Continue NPO CBC tomorrow 06/17/16, if H&H remains stable, surgery will consider starting clear liquid diet tomorrow Continue Vasques and drain, monitor output Continue to hold anticoagulation Patient discussed with Dr. Wayne Code(s): R18.8 - OTHER ASCITES <Angella Mcghee - Last Filed: 06/16/16 12:22> - Problems (1) HTN (hypertension) Code(s): I10 - ESSENTIAL (PRIMARY) HYPERTENSION Qualifiers: Hypertension type: essential hypertension Qualified Code(s): I10 - Essential (primary) hypertension (2) Renal insufficiency Code(s): N28.9 - DISORDER OF KIDNEY AND URETER, UNSPECIFIED (3) Sepsis Code(s): A41.9 - SEPSIS, UNSPECIFIED ORGANISM Qualifiers: Sepsis type: Escherichia coli Qualified Code(s): A41.51 - Sepsis due to Escherichia coli [E. coli] (4) Bowel perforation Code(s): K63.1 - PERFORATION OF INTESTINE (NONTRAUMATIC) (5) Intra-abdominal abscess Code(s): K65.1 - PERITONEAL ABSCESS <Jace Wayne - Last Filed: 06/16/16 12:34>
[2016-06-16] MEDS ORDERED: cloNIDine-TTS 0.1 MG/24 HRS PATCH.TDWK TD SCH (12:15)
--- NOTE | 2016-06-16 13:12 | OP ---
DATE OF OPERATION: 06/15/2016 SURGEON: Albert Wayne M.D. PREOPERATIVE DIAGNOSIS: Intraabdominal abscess, possible perforated viscus/ bowel. PROCEDURE: Exploratory laparotomy, abdominal washout, drainage of intraabdominal abscess, enterotomy with removal of fecalith and primary repair, uterine mass biopsy by Dr. Mercado. POSTOPERATIVE DIAGNOSIS: Intraabdominal abscess, small bowel fecalith, and perforated uterus with purulent discharge. SPECIMEN: Fecalith, fibrinous exudate, peritoneal fluid for cell count, cytology and culture and uterine mass biopsy. ESTIMATED BLOOD LOSS: 500 mL. ANESTHESIA: General endotracheal. DRAINS: JES and Ennis. REASON FOR PROCEDURE: This is an 80-year-old female who presented to the emergency room from her nursing facility for abdominal pain. On workup, she was found to have a white blood cell count of 24, a INR of 2.[address] findings consistent with intraabdominal abscess with unknown etiology. Interventional Radiology was consulted; however, due to a lack of access, they were unable to drain the abdominal collection. A question of possible perforated bowel as the source of the abscess versus the etiology being from the bladder or uterus, was entertained. Because the patient was in sepsis and needed drainage, the options were discussed with both the patient, as well as her son over the phone. After discussing these options, it was determined that she would proceed with an exploratory laparotomy, possible bowel resection, possible ostomy, possible central line placement. The risks and benefits of the procedure were explained. These included bleeding , which in her case would be increased because she was on Eliquis, for which she had received 1 unit of platelets in the ICU and was to receive 1 unit of platelets in the OR, as well as an elevated INR, for which she received 2 units of FFP; infection , which she currently had due to her intraabdominal abscess; hernia; staple line dehiscence; wound dehiscence; evisceration; injury to surrounding abdominal structures; including bowel; colon; ureter; adnexa; bladder; vessel injury; nerve injury; NM; DVT; PE; stroke and , as some of the complications. Both her and her son understood and informed consent was obtained. In addition, the risks and benefits of a possible central line were explained, which included vessel injury, pneumothorax. Again they understood the risks and benefits and informed consent was obtained as part of the operative consent. DESCRIPTION OF PROCEDURE: Patient was placed supine on the operating room table. A Ennis catheter had already been inserted while in the hospital prior to entering the operating room. She underwent general endotracheal intubation. The abdomen was prepped and draped in the usual sterile fashion. A timeout was performed. A midline incision was made from above the umbilicus towards the pubis. The skin and subcutaneous tissue were dissected down to the level of the fascia. The fascia was divided in its midline. Entry into the abdominal cavity was obtained. Immediately it was noted that there was purulent discharge within the abdominal cavity. Suction was performed and the fluid was sent for cytology, cell count and culture. The small bowel was eviscerated and fibrinous exudate noted throughout. Parts of this fibrinous exudate were removed and sent off as pathology. The small bowel was run in its entirety from the ligament of Treitz down to the cecum. No perforation was noted. The cecum and the right colon was identified, followed by the transverse colon and left colon. These were all fully intact without any evidence of perforation. The sigmoid colon was noted to be adhered towards the uterus. This was freed using electrocautery. Again no perforation from the colon was noted. On careful inspection, the uterus was noted to be hard and there was noted to be an anterior perforation of the uterus with copious amounts of purulent discharge from it. Because of this, POWER GRADER OPERATOR was consulted for intraoperative consult. Dr. Mercado inspected the uterus and performed an excisional biopsy of the uterine wall mass. After removing the mass and primarily closing the uterus, the pelvis and abdomen was copiously irrigated and suctioned. Again the entirety of the bowel was inspected and in the mid jejunum there was noted to be a small fecalith that could possible cause an obstruction in the future. Because of this, an enterotomy was performed over this, the fecalith removed and the enterotomy closed primarily using 2-0 silk sutures. The suture line was then imbricated in the Lembert fashion using multiple 3-0 silk sutures. The enterotomy was noted to be fully closed. Again further copious irrigation and suction was performed until dry. A large round JES drain was placed in the pelvis near the site of the perforated uterus and exteriorized. This was secured using a 2-0 silk suture. Further copious irrigation and suction was performed with multiple liters of warm irrigation solution until clear. The small bowel was then placed back within the abdominal cavity. The fascia was closed using No. 1 loop PDS x2. The fascia was noted to be fully closed and secured. The skin was loosely stapled and Iodoform packing used to pack the wound. A dressing was applied. The patient tolerated the procedure. She was transferred back to the ICU for careful monitoring. ALBERT WAYNE M.D. [id number] MTDD
--- NOTE | 2016-06-16 13:22 | PATH ---
Cytology Non-Gynecological Report Patient Name: LEXI MELGOZA [facility]. Rec. #: [id number] /Age/Gender: 1935 (Age: 80) / F Account: [id number] Location: ICU DEVELOPMENT PROFESSIONAL Taken: 06/15/2016 Received: 06/15/2016 Reported: 06/16/2016 Physicians: Los Blount M.D. Specimen(s) Received PERITONEAL FLUID Clinical History Perforated bowel/viscus Final Diagnosis PERITONEAL FLUID: SATISFACTORY FOR EVALUATION. BENIGN (NO MALIGNANT CELLS IDENTIFIED). ABUNDANT NEUTROPHILS, SCANT REACTIVE MESOTHELIAL CELLS, AND BLOOD PRESENT. Comment: Recommend correlation with clinical and radiologic findings and follow up as clinically indicated. Also see [id number]. Electronically Signed Valerio Scott M.D. Gross Description Approximately 5 cc of red fluid received fresh. Two cytofunnels and one cellblock prepared.
--- NOTE | 2016-06-16 18:27 | PN ---
Progress Note, Physician Chief Complaint: AWAKE MORE ALERT 02 MASK ON ANXIOUS NO APPETITE - Current Medication List Current Medications: Active Medications Clonidine HCl (Catapres Tts Patch -) 0.1 mg TD Q7D@1000 [facility] Last Admin: 06/16/16 12:35 Dose: 0.1 mg Ceftriaxone Sodium (Rocephin 2gm Ivpb (Pre-Docked)) 100 mls @ 200 mls/hr IVPB DAILY [facility] Last Admin: 06/16/16 09:39 Dose: 200 mls/hr Metronidazole (Flagyl 500mg Premixed Ivpb -) 100 mls @ 100 mls/hr IVPB Q8H-IV [facility] Last Admin: 06/16/16 09:38 Dose: 100 mls/hr Potassium Chloride/Dextrose/Sod Cl (D5-1/2ns+20 Meq Kcl -) 1,000 mls @ 75 mls/ hr IV ASDIR [facility] Last Admin: 06/16/16 10:15 Dose: 75 mls/hr Metoprolol Tartrate (Lopressor Injection -) 5 mg IVPUSH Q4H PRN PRN Reason: HYPERTENSION Last Admin: 06/16/16 11:50 Dose: 5 mg Ondansetron HCl (Zofran Injection) 4 mg IVPB Q6H PRN PRN Reason: NAUSEA - Objective Vital Signs: Vital Signs Temperature 98 F 06/16/16 15:00 Pulse Rate 89 06/16/16 18:00 Respiratory Rate 22 06/16/16 18:00 Blood Pressure 154/67 06/16/16 18:00 O2 Sat by Pulse Oximetry (%) 97 06/16/16 10:00 Constitutional: Yes: Mild Distress Eyes: Yes: WNL HENT: Yes: WNL Neck: Yes: WNL Cardiovascular: Yes: WNL Respiratory: Yes: WNL Gastrointestinal: Yes: Tenderness Genitourinary: Yes: Incontinence Musculoskeletal: Yes: Muscle Weakness Extremities: Yes: WNL Edema: No Peripheral Pulses WNL: Yes Integumentary: Yes: WNL Wound/Incision: Yes: Clean/Dry Neurological: Yes: Other ...Motor Strength: LLE Psychiatric: Yes: Agitated Labs: CBC, BMP 06/16/16 05:05 06/16/16 05:05 INR, PTT INR 2.04 (0.82-1.09) H 06/16/16 05:05 Problem List - Problems (1) Anxiety Code(s): F41.9 - ANXIETY DISORDER, UNSPECIFIED (2) HTN (hypertension) Code(s): I10 - ESSENTIAL (PRIMARY) HYPERTENSION Qualifiers: Hypertension type: essential hypertension Qualified Code(s): I10 - Essential (primary) hypertension (3) Hyperlipidemia Code(s): E78.5 - HYPERLIPIDEMIA, UNSPECIFIED Qualifiers: Hyperlipidemia type: pure hypercholesterolemia Qualified Code(s): E78.0 - Pure hypercholesterolemia (4) Rapid atrial fibrillation Code(s): I48.91 - UNSPECIFIED ATRIAL FIBRILLATION (5) Renal insufficiency Code(s): N28.9 - DISORDER OF KIDNEY AND URETER, UNSPECIFIED (6) Uterine abscess Code(s): N71.9 - INFLAMMATORY DISEASE OF UTERUS, UNSPECIFIED Assessment/Plan UTERINE ABSCESS/EXPLORATORY LAP POD#1 AWAKE , IMPROVING AWAIT BIOPSY RESULTS OF UTERUS IV ABX DVT PROPHYLAXIS INCENTIVE SPIROMETRY
[2016-06-17] MEDS: METRONIDAZOLE 500 MG PREMIXED 100 ML IVPB SCH ×3 (01:09→17:47)
[2016-06-17 06:22] LABS: MCH 28.1 pg (25.7-33.7); MCHC 32.3 g/dl (32.0-36.0); MEAN CELL VOLUME 87.1 fl (80-96); MEAN PLT VOLUME 7.4 fl (7.5-11.1); PLATELET COUNT 499 K/MM3 (134-434); WHITE BLOOD COUNT 24.1 K/mm3 (4.0-10.0)
[2016-06-17 06:35] LABS: INR 1.69 (0.82-1.09); PROTHROMBIN TIME (PATIENT) 18.8 SEC (9.98-11.88)
[2016-06-17 06:38] LABS: ACTIVATED PTT 30.4 SECONDS (26.9-34.4)
[2016-06-17 06:55] LABS: ALBUMIN 1.9 g/dl (3.4-5.0); ANION GAP 9 (8-16); CALCIUM 8.1 mg/dL (8.5-10.1); CO2 25 mmol/L (21-32); CREATININE 0.8 mg/dL (0.55-1.02); GLUCOSE,RANDOM 107 mg/dL (74-106); PHOSPHOROUS 1.3 mg/dL (2.5-4.9); SGOT/AST 36 U/L (15-37); SGPT/ALT 73 U/L (12-78)
[2016-06-17 06:56] LABS: ALK PHOS 92 U/L (45-117); BILIRUBIN,TOTAL 0.2 mg/dL (0.2-1.0); TOT PROT 5.2 g/dl (6.4-8.2)
[2016-06-17 07:31] LABS: ARTERIAL BLD GAS O2 SATURATION 97.6 % (90-98.9); ARTERIAL BLOOD GAS BASE EXCESS 0.7 meq/l (-2-2); ARTERIAL BLOOD GAS HCO3 24.8 meq/L (22-26); ARTERIAL BLOOD GAS PO2 96.3 mmHg (68-100); ARTERIAL BLOOD GAS pH 7.41 (7.35-7.45)
[2016-06-17 07:35] LABS: ALLENS TEST POSITIVE; ART PUNCT SITE LEFT RADIAL; LPM/O2% 2L; PT. ON O2? YES; TYPE OF O2 NASAL
--- NOTE | 2016-06-17 07:58 | PN ---
Progress Note, Physician Chief Complaint: ID Follow up in the ICU for intrabdominal sepsis Currently day 2 post op Perforated uterus drainage of pelvic abscess enterostomy for fecolith. Possibility of pelvic malignancy considered biopsy pending Ceftriaxone & metronidazole She is alert says she is groggy from the pain meds - Current Medication List Current Medications: Active Medications Amino Acids (Prostat Sugar-Free Packet -) 30 ml PO BID@0800,1730 [facility] Ascorbic Acid (Vitamin C -) 500 mg PO DAILY [facility] Clonidine HCl (Catapres Tts Patch -) 0.1 mg TD Q7D@1000 [facility] Last Admin: 06/16/16 12:35 Dose: 0.1 mg Cyanocobalamin (Vitamin B12 Injection -) 1,000 mcg IM DAILY [facility] Ferrous Sulfate (Feosol -) 325 mg PO DAILY [facility] Folic Acid (Folic Acid -) 1 mg PO DAILY [facility] Ceftriaxone Sodium (Rocephin 2gm Ivpb (Pre-Docked)) 100 mls @ 200 mls/hr IVPB DAILY [facility] Last Admin: 06/16/16 09:39 Dose: 200 mls/hr Metronidazole (Flagyl 500mg Premixed Ivpb -) 100 mls @ 100 mls/hr IVPB Q8H-IV [facility] Last Admin: 06/17/16 01:09 Dose: 100 mls/hr Potassium Chloride/Dextrose/Sod Cl (D5-1/2ns+20 Meq Kcl -) 1,000 mls @ 75 mls/ hr IV ASDIR [facility] Last Admin: 06/16/16 10:15 Dose: 75 mls/hr Metoprolol Tartrate (Lopressor Injection -) 5 mg IVPUSH Q4H PRN PRN Reason: HYPERTENSION Last Admin: 06/16/16 18:30 Dose: 5 mg Multivitamins/Minerals/Vitamin C (Tab-A-Vit -) 1 tab PO DAILY [facility] Ondansetron HCl (Zofran Injection) 4 mg IVPB Q6H PRN PRN Reason: NAUSEA Potassium Phos/Sodium Phos (Phos-Nak Packet -) 1 packet PO DAILY [facility] - Objective Vital Signs: Vital Signs Temperature 99 F 06/17/16 06:00 Pulse Rate 89 06/17/16 06:00 Respiratory Rate 20 06/17/16 06:00 Blood Pressure 150/78 06/17/16 06:00 O2 Sat by Pulse Oximetry (%) 97 06/16/16 20:37 Constitutional: Yes: No Distress Eyes: Yes: WNL, Conjunctiva Clear HENT: Yes: WNL, Atraumatic Neck: Yes: WNL, Supple Cardiovascular: Yes: Regular Rate and Rhythm, S1, S2. No: Murmur Respiratory: Yes: WNL, Regular, CTA Bilaterally Gastrointestinal: Yes: WNL, Normal Bowel Sounds, Soft. No: Tenderness Edema: No Labs: CBC, BMP 06/17/16 05:15 06/17/16 05:15 INR, PTT INR 1.69 (0.82-1.09) H 06/17/16 05:15 Problem List - Problems (1) Diverticulitis of colon with perforation Code(s): K57.20 - DVTRCLI OF LG INT W PERFORATION AND ABSCESS W/O BLEEDING (2) Pelvic fluid collection Code(s): R18.8 - OTHER ASCITES (3) Septic shock Code(s): A41.9 - SEPSIS, UNSPECIFIED ORGANISM R65.21 - SEVERE SEPSIS WITH SEPTIC SHOCK Assessment/Plan Microbiology 06/15/16 01:56 Urine - Urine Ennis Urine Culture - Preliminary Non Lactose Fermenting Gnb Laboratory Tests 06/17/16 05:15 WBC 24.1 H Hgb 8.8 L Hct 27.4 L Plt Count 499 H Microbiology 06/15/16 15:45 Peritoneal Fluid Gram Stain - Final 06/15/16 05:00 Nasopharyngeal Swab Respiratory Virus Panel - Preliminary 06/15/16 02:50 Blood - Peripheral Venous Blood Culture - Preliminary NO GROWTH OBTAINED AFTER 48 HOURS, INCUBATION TO CONTINUE FOR 3 DAYS. Assessment Pelvic collection turns out secondary to perforation of the uterus. Possibility of uterine cancer considered Biopsy pending. Currently on Ceftriaxone and Metronidazole. Gram stain from the collection polys but no organisms seen. The culture is pending. 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 Plan Continue current therapy antibiotic as ordered If needed we can switch therapy based on the operative culture 38 minutes critical care time spent [place] AVERY
--- NOTE | 2016-06-17 08:55 | PN ---
[id number] states she is not having abdominal pain. She remains NPO, denies nausea or vomiting. Patient is unsure if she has passed gas. Denies fever, chills. Last Vital Signs Temp Pulse Resp BP Pulse Ox 98.8 F 86 20 155/81 97 06/17/16 08:00 06/17/16 08:00 06/17/16 08:00 06/17/16 08:00 06/17/16 08:00 CBC, BMP 06/17/16 05:15 06/17/16 05:15 JES- 175 ml yesterday, 25 recorded for today Exam: Gen: NAD Abd: Soft, nondistended, mild tenderness around incision, packing and dressing changed on rounds, midline incision with some guanakito, no surrounding erythema, JES drain in place with minimal serosanguineous drainage in bulb <Angella Mcghee - Last Filed: 06/17/16 09:05> - Note Progress Note: Agree Pain controlled NPO AVSS Abd soft, packing changed, JES serosanguinous WBC 24 H/H 8 Continue NPO IV antibiotics F/U path Change packing daily H/H at 2pm- if stable, will start clears <Jace Wayne - Last Filed: 06/17/16 10:13> Problem List - Problems (1) Intra-abdominal abscess Code(s): K65.1 - PERITONEAL ABSCESS (2) Pelvic fluid collection Assessment/Plan: POD#2 s/p s/p exploratory laparotomy, perforated uterus with purulent discharge noted, abdominal washout, drainage of intraabdominal abscess, excisional uterine mass biopsy, enterotomy with removal of fecalith and primary repair Continue NPO this morning, will recheck CBC at 1400, if stable, will start clears Continue drain, monitor output Dressing and packing changed on rounds Continue abx F/u bx Continue to hold anticoagulation Incentive spirometry Patient discussed with Dr. Wayne Code(s): R18.8 - OTHER ASCITES <Angella Mcghee - Last Filed: 06/17/16 09:05> - Problems (1) HTN (hypertension) Code(s): I10 - ESSENTIAL (PRIMARY) HYPERTENSION Qualifiers: Hypertension type: essential hypertension Qualified Code(s): I10 - Essential (primary) hypertension (2) Renal insufficiency Code(s): N28.9 - DISORDER OF KIDNEY AND URETER, UNSPECIFIED (3) Sepsis Code(s): A41.9 - SEPSIS, UNSPECIFIED ORGANISM Qualifiers: Sepsis type: Escherichia coli Qualified Code(s): A41.51 - Sepsis due to Escherichia coli [E. coli] (4) Bowel perforation Code(s): K63.1 - PERFORATION OF INTESTINE (NONTRAUMATIC) (5) Intra-abdominal abscess Code(s): K65.1 - PERITONEAL ABSCESS <Jace Wayne - Last Filed: 06/17/16 10:13>
[2016-06-17] MEDS: CEFTRIAXONE 100 ML IVPB SCH (09:22)
[2016-06-17] MEDS: D5-1/2NS+20 MEQ KCL - 1,000 ML IV SCH ×3 (09:23→17:47)
[2016-06-17] MEDS ORDERED: ASCORBIC ACID 500 MG TABLET (FP) PO SCH (10:00)
[2016-06-17] MEDS ORDERED: MULTIVITAMINS (DAILY MVI) TABLET (FP) PO SCH (10:00)
[2016-06-17] MEDS ORDERED: NAPH,MB-DB/K PH,MBDB POWDER PACKET PO SCH (10:00)
[2016-06-17] MEDS ORDERED: FOLIC ACID 1 MG TABLET (FP) PO SCH (10:00)
[2016-06-17] MEDS ORDERED: CYANOCOBALAMIN (VITAMIN B-12) 1000 MCG/1 ML VIAL IM SCH (10:00)
[2016-06-17] MEDS ORDERED: FERROUS SO4 325 MG TABLET (FP) PO SCH (10:00)
--- NOTE | 2016-06-17 13:35 | PN ---
Progress Note (short form) - Note Progress Note: Patient seen and examined in the ICU. Awake and alert. Remains extubated. No pressors. Some mild appropriate pain at the surgical site. Intake & Output 06/14/16 06/15/16 06/16/16 06/17/16 23:59 23:59 23:59 23:59 Intake Total 6504 2950 1000 Output Total 880 1025 325 Balance 5624 1925 675 Weight 110 lb 139 lb 15.896 oz Last Vital Signs Temp Pulse Resp BP Pulse Ox 98.7 F 99 H 17 152/80 97 06/17/16 12:00 06/17/16 12:00 06/17/16 12:00 06/17/16 12:00 06/17/16 11:12 Active Medications Amino Acids (Prostat Sugar-Free Packet -) 30 ml PO BID@0800,1730 [facility] Ascorbic Acid (Vitamin C -) 500 mg PO DAILY [facility] Last Admin: 06/17/16 09:19 Dose: Not Given Clonidine HCl (Catapres Tts Patch -) 0.1 mg TD Q7D@1000 [facility] Last Admin: 06/16/16 12:35 Dose: 0.1 mg Cyanocobalamin (Vitamin B12 Injection -) 1,000 mcg IM DAILY [facility] Last Admin: 06/17/16 10:49 Dose: 1,000 mcg Ferrous Sulfate (Feosol -) 325 mg PO DAILY [facility] Last Admin: 06/17/16 09:18 Dose: Not Given Folic Acid (Folic Acid -) 1 mg PO DAILY [facility] Last Admin: 06/17/16 09:18 Dose: Not Given Ceftriaxone Sodium (Rocephin 2gm Ivpb (Pre-Docked)) 100 mls @ 200 mls/hr IVPB DAILY [facility] Last Admin: 06/17/16 09:22 Dose: 200 mls/hr Metronidazole (Flagyl 500mg Premixed Ivpb -) 100 mls @ 100 mls/hr IVPB Q8H-IV [facility] Last Admin: 06/17/16 09:22 Dose: 100 mls/hr Potassium Chloride/Dextrose/Sod Cl (D5-1/2ns+20 Meq Kcl -) 1,000 mls @ 75 mls/ hr IV ASDIR [facility] Last Admin: 06/17/16 10:15 Dose: Not Given Metoprolol Tartrate (Lopressor Injection -) 5 mg IVPUSH Q4H PRN PRN Reason: HYPERTENSION Last Admin: 06/16/16 18:30 Dose: 5 mg Multivitamins/Minerals/Vitamin C (Tab-A-Vit -) 1 tab PO DAILY [facility] Last Admin: 06/17/16 09:19 Dose: Not Given Ondansetron HCl (Zofran Injection) 4 mg IVPB Q6H PRN PRN Reason: NAUSEA Potassium Phos/Sodium Phos (Phos-Nak Packet -) 1 packet PO DAILY [facility] Last Admin: 06/17/16 09:18 Dose: Not Given Constitutional: Yes: Awake and alert, Extubated Eyes: Yes: (-) Pallor HENT: Yes: WNL Cardiovascular: Yes: S1, S2, Other (sinus on tele) Respiratory: Yes: Intubated, scattered rhonchi No: wheezes Gastrointestinal: Yes: Hypoactive Bowel Sounds, (+) mild appropriate tenderness ...Rectal Exam: Yes: Deferred Musculoskeletal: Yes: Other (bilateral patellar inflammation) Edema: Yes Edema: LUE: Trace Peripheral Pulses WNL: Yes (+2 bilateral pedal pulses) Integumentary: Yes: WNL Neurological: Yes: Alert Psychiatric: Yes: WNL Labs: Laboratory Results - last 24 hr 06/17/16 06/17/16 06/17/16 05:15 05:15 05:15 WBC 24.1 H RBC 3.14 L Hgb 8.8 L Hct 27.4 L MCV 87.1 MCHC 32.3 RDW 14.0 Plt Count 499 H MPV 7.4 L Neutrophils % 89.0 H Lymphocytes % 5.0 L Monocytes % 6.0 D INR 1.69 H PTT (Actin FS) 30.4 Puncture Site ABG pH ABG pCO2 at Pt Temp ABG pO2 at Pt Temp ABG HCO3 ABG O2 Sat (Measured) ABG O2 Content ABG Base Excess Brian Test O2 Delivery Device Oxygen Flow Rate PEEP Sodium 142 Potassium 4.4 Chloride 108 H Carbon Dioxide 25 Anion Gap 9 BUN 21 H Creatinine 0.8 Creat Clearance w eGFR > 60 Random Glucose 107 H Calcium 8.1 L Phosphorus 1.3 L D Magnesium 2.0 Total Bilirubin 0.2 D AST 36 D ALT 73 D Alkaline Phosphatase 92 Total Protein 5.2 L Albumin 1.9 L 06/17/16 07:15 WBC RBC Hgb Hct MCV MCHC RDW Plt Count MPV Neutrophils % Lymphocytes % Monocytes % INR PTT (Actin FS) Puncture Site Left radial ABG pH 7.41 ABG pCO2 at Pt Temp 39.8 ABG pO2 at Pt Temp 96.3 ABG HCO3 24.8 ABG O2 Sat (Measured) 97.6 ABG O2 Content 11.8 L ABG Base Excess 0.7 Brian Test Positive O2 Delivery Device Nasal Oxygen Flow Rate 2l PEEP 0.0 Sodium Potassium Chloride Carbon Dioxide Anion Gap BUN Creatinine Creat Clearance w eGFR Random Glucose Calcium Phosphorus Magnesium Total Bilirubin AST ALT Alkaline Phosphatase Total Protein Albumin Assessment/Plan S/P Exploratory laparotomy/abdominal washout/drainage of intraabdominal abscess/ enterotomy with removal of fecalith and primary repair due to perforated uterus. Additional findings copious : purulent drainage from the uterus, fibrinous exudate throughout small bowel. HTN HPL A-fib previously on Eliquis Dementia Anxiety O2 to maintain O2 saturation IVF ABX per ID AC when ok with surgery SCDs Pain control Incentive Spirometry if willing Dr Ybarra CCTime 35"
[2016-06-17 14:04] LABS: MCH 28.1 pg (25.7-33.7); MCHC 32.1 g/dl (32.0-36.0); MEAN CELL VOLUME 87.3 fl (80-96); MEAN PLT VOLUME 7.2 fl (7.5-11.1); PLATELET COUNT 416 K/MM3 (134-434); RDW 14.1 % (11.6-15.6); WHITE BLOOD COUNT 23.4 K/mm3 (4.0-10.0)
[2016-06-17] MEDS ORDERED: FLUCONAZOLE 150 MG TABLET PO ONE (14:09)
--- NOTE | 2016-06-17 14:10 | PN ---
Progress Note, Physician Chief Complaint: Pt A&Ox3; no chest pain or dyspnea; easily fatigued. History of Present Illness: 80yr old white woman presented to ED via EMS from [facility] with c/ o abd pain. According to patient son, patient has been having abd pain all day starting at 6pm, pain progressed at 1015pm- patient given oxycontin with no relief- patient sent to this ED for evaluation. Son inform technical proposal writer that patient recently admitted May 27 for "blood infection" and d/c to [facility] for rehab but has not gotten out of bed per son. Patient also has not had a BM today. Denies any other complaints at this time. - Current Medication List Current Medications: Active Medications Amino Acids (Prostat Sugar-Free Packet -) 30 ml PO BID@0800,1730 [facility] Ascorbic Acid (Vitamin C -) 500 mg PO DAILY [facility] Last Admin: 06/17/16 09:19 Dose: Not Given Clonidine HCl (Catapres Tts Patch -) 0.1 mg TD Q7D@1000 [facility] Last Admin: 06/16/16 12:35 Dose: 0.1 mg Cyanocobalamin (Vitamin B12 Injection -) 1,000 mcg IM DAILY [facility] Last Admin: 06/17/16 10:49 Dose: 1,000 mcg Ferrous Sulfate (Feosol -) 325 mg PO DAILY [facility] Last Admin: 06/17/16 09:18 Dose: Not Given Folic Acid (Folic Acid -) 1 mg PO DAILY [facility] Last Admin: 06/17/16 09:18 Dose: Not Given Ceftriaxone Sodium (Rocephin 2gm Ivpb (Pre-Docked)) 100 mls @ 200 mls/hr IVPB DAILY [facility] Last Admin: 06/17/16 09:22 Dose: 200 mls/hr Metronidazole (Flagyl 500mg Premixed Ivpb -) 100 mls @ 100 mls/hr IVPB Q8H-IV [facility] Last Admin: 06/17/16 09:22 Dose: 100 mls/hr Potassium Chloride/Dextrose/Sod Cl (D5-1/2ns+20 Meq Kcl -) 1,000 mls @ 75 mls/ hr IV ASDIR [facility] Last Admin: 06/17/16 10:15 Dose: Not Given Metoprolol Tartrate (Lopressor Injection -) 5 mg IVPUSH Q4H PRN PRN Reason: HYPERTENSION Last Admin: 06/16/16 18:30 Dose: 5 mg Multivitamins/Minerals/Vitamin C (Tab-A-Vit -) 1 tab PO DAILY [facility] Last Admin: 06/17/16 09:19 Dose: Not Given Ondansetron HCl (Zofran Injection) 4 mg IVPB Q6H PRN PRN Reason: NAUSEA Potassium Phos/Sodium Phos (Phos-Nak Packet -) 1 packet PO DAILY [facility] Last Admin: 06/17/16 09:18 Dose: Not Given - Objective Vital Signs: Vital Signs Temperature 98.7 F 06/17/16 12:00 Pulse Rate 99 H 06/17/16 12:00 Respiratory Rate 17 06/17/16 12:00 Blood Pressure 152/80 06/17/16 12:00 O2 Sat by Pulse Oximetry (%) 97 06/17/16 11:12 Constitutional: Yes: Calm Eyes: Yes: WNL HENT: Yes: WNL Neck: Yes: WNL Cardiovascular: Yes: Regular Rate and Rhythm Respiratory: Yes: Diminished Gastrointestinal: Yes: Soft, Tenderness ...Rectal Exam: Yes: Deferred Genitourinary: No: Anuria Breast(s): Yes: WNL Musculoskeletal: Yes: Muscle Weakness Extremities: Yes: Cool Edema: No Peripheral Pulses WNL: No Peripheral Pulses: Left Doralis Pedis: 1+, Right Dorsalis Pedis: 1+ Integumentary: Yes: Incision Wound/Incision: Yes: Dressing Dry and Intact Neurological: Yes: Alert, Oriented, Weakness Psychiatric: Yes: Alert, Oriented Labs: CBC, BMP 06/17/16 05:15 06/17/16 05:15 INR, PTT INR 1.69 (0.82-1.09) H 06/17/16 05:15 Abnormal Lab Results 06/17/16 06/17/16 06/17/16 05:15 05:15 05:15 WBC 24.1 H RBC 3.14 L Hgb 8.8 L Hct 27.4 L Plt Count 499 H MPV 7.4 L Neutrophils % 89.0 H Lymphocytes % 5.0 L INR 1.69 H ABG O2 Content Chloride 108 H BUN 21 H Random Glucose 107 H Calcium 8.1 L Phosphorus 1.3 L D Total Protein 5.2 L Albumin 1.9 L 06/17/16 06/17/16 07:15 13:59 WBC 23.4 H RBC 3.11 L Hgb 8.7 L Hct 27.1 L Plt Count MPV 7.2 L Neutrophils % Lymphocytes % INR ABG O2 Content 11.8 L Chloride BUN Random Glucose Calcium Phosphorus Total Protein Albumin - ....Imaging Other: Image Reviewed (telemetry: NSR) Problem List - Problems (1) Afib Assessment/Plan: Pt was on metoprolol at home; may use IV metoprolol for HR and BP until able to take PO. On apixaban at home; restart as soon as cleared by surgeon. Code(s): I48.91 - UNSPECIFIED ATRIAL FIBRILLATION (2) Intra-abdominal abscess Code(s): K65.1 - PERITONEAL ABSCESS (3) Anxiety Code(s): F41.9 - ANXIETY DISORDER, UNSPECIFIED (4) HTN (hypertension) Assessment/Plan: On metoprolol and clonidine at home; last dose of clonidine 2 days ago, per pt and chart. Risk of rebound hypertension when abruptly stopping clonidine (exacerbated when also on metoprolol). Will restart metoprolol IV and clonidine patch (though ideally should overlap patch 1-2 days with oral agent) until pt is able to take PO. (May have to remove clonidine patch for procedures, eg MRI, because of aluminum , etc.). Change to PO metoprolol when able to. Code(s): I10 - ESSENTIAL (PRIMARY) HYPERTENSION Qualifiers: Hypertension type: essential hypertension Qualified Code(s): I10 - Essential (primary) hypertension (5) Sepsis Assessment/Plan: on antibiotics; followed by ID. Maintain hydration. LVEF WNL by ECHO. Code(s): A41.9 - SEPSIS, UNSPECIFIED ORGANISM Qualifiers: Sepsis type: Escherichia coli Qualified Code(s): A41.51 - Sepsis due to Escherichia coli [E. coli] (6) Anemia Code(s): D64.9 - ANEMIA, UNSPECIFIED (7) GI tract abscess Assessment/Plan: On antibiotics; Pain managment. FLuids; f/u electrolytes, Hb. Surgical f/u. Code(s): K63.0 - ABSCESS OF INTESTINE
--- NOTE | 2016-06-17 14:12 | PN ---
Progress Note, Physician Chief Complaint: AWAKE ALERT X 2 +ANXIETY - Current Medication List Current Medications: Active Medications Amino Acids (Prostat Sugar-Free Packet -) 30 ml PO BID@0800,1730 [facility] Ascorbic Acid (Vitamin C -) 500 mg PO DAILY [facility] Last Admin: 06/17/16 09:19 Dose: Not Given Clonidine HCl (Catapres Tts Patch -) 0.1 mg TD Q7D@1000 [facility] Last Admin: 06/16/16 12:35 Dose: 0.1 mg Cyanocobalamin (Vitamin B12 Injection -) 1,000 mcg IM DAILY [facility] Last Admin: 06/17/16 10:49 Dose: 1,000 mcg Ferrous Sulfate (Feosol -) 325 mg PO DAILY [facility] Last Admin: 06/17/16 09:18 Dose: Not Given Fluconazole (Diflucan -) 150 mg PO ONCE ONE Stop: 06/17/16 14:10 Folic Acid (Folic Acid -) 1 mg PO DAILY [facility] Last Admin: 06/17/16 09:18 Dose: Not Given Ceftriaxone Sodium (Rocephin 2gm Ivpb (Pre-Docked)) 100 mls @ 200 mls/hr IVPB DAILY [facility] Last Admin: 06/17/16 09:22 Dose: 200 mls/hr Metronidazole (Flagyl 500mg Premixed Ivpb -) 100 mls @ 100 mls/hr IVPB Q8H-IV [facility] Last Admin: 06/17/16 09:22 Dose: 100 mls/hr Potassium Chloride/Dextrose/Sod Cl (D5-1/2ns+20 Meq Kcl -) 1,000 mls @ 75 mls/ hr IV ASDIR [facility] Last Admin: 06/17/16 10:15 Dose: Not Given Lactobacillus Acidophilus (Bacid -) 1 tab PO DAILY [facility] Metoprolol Tartrate (Lopressor Injection -) 5 mg IVPUSH Q4H PRN PRN Reason: HYPERTENSION Last Admin: 06/16/16 18:30 Dose: 5 mg Multivitamins/Minerals/Vitamin C (Tab-A-Vit -) 1 tab PO DAILY [facility] Last Admin: 06/17/16 09:19 Dose: Not Given Ondansetron HCl (Zofran Injection) 4 mg IVPB Q6H PRN PRN Reason: NAUSEA Potassium Phos/Sodium Phos (Phos-Nak Packet -) 1 packet PO DAILY [facility] Last Admin: 06/17/16 09:18 Dose: Not Given - Objective Vital Signs: Vital Signs Temperature 98.9 F 06/17/16 14:00 Pulse Rate 100 H 06/17/16 14:00 Respiratory Rate 17 06/17/16 14:00 Blood Pressure 128/83 06/17/16 14:00 O2 Sat by Pulse Oximetry (%) 97 06/17/16 11:12 Constitutional: Yes: Mild Distress Eyes: Yes: WNL HENT: Yes: WNL Neck: Yes: WNL Cardiovascular: Yes: Pulse Irregular Respiratory: Yes: WNL Gastrointestinal: Yes: Tenderness, Other Genitourinary: Yes: WNL, Incontinence Musculoskeletal: Yes: Muscle Weakness Extremities: Yes: WNL Edema: Yes Edema: LLE: 1+, RLE: 1+ Peripheral Pulses WNL: Yes Integumentary: Yes: Erythema Wound/Incision: Yes: Open to air, Reddened Neurological: Yes: Pre-Existing Deficit, Unsteady Gait ...Motor Strength: LLE, RLE Psychiatric: Yes: Agitated Labs: CBC, BMP 06/17/16 13:59 06/17/16 05:15 INR, PTT INR 1.69 (0.82-1.09) H 06/17/16 05:15 Problem List - Problems (1) Anxiety Code(s): F41.9 - ANXIETY DISORDER, UNSPECIFIED (2) HTN (hypertension) Code(s): I10 - ESSENTIAL (PRIMARY) HYPERTENSION Qualifiers: Qualified Code(s): I10 - Essential (primary) hypertension (3) Hyperlipidemia Code(s): E78.5 - HYPERLIPIDEMIA, UNSPECIFIED Qualifiers: Qualified Code(s): E78.0 - Pure hypercholesterolemia (4) Rapid atrial fibrillation Code(s): I48.91 - UNSPECIFIED ATRIAL FIBRILLATION (5) Renal insufficiency Code(s): N28.9 - DISORDER OF KIDNEY AND URETER, UNSPECIFIED (6) Uterine abscess Code(s): N71.9 - INFLAMMATORY DISEASE OF UTERUS, UNSPECIFIED Assessment/Plan UTERINE ABSCESS/EXPLORATORY LAP POD#2 AWAKE , IMPROVING AWAIT BIOPSY RESULTS OF UTERUS IV ABX DVT PROPHYLAXIS INCENTIVE SPIROMETRY KLONOPIN BID
--- NOTE | 2016-06-17 14:34 | PATH ---
Surgical Pathology Report Patient Name: LEXI MELGOZA [facility]. Rec. #: [id number] /Age/Gender: 1935 (Age: 80) / F Account: [id number] Location: ICU ACQUISITIONS ANALYST Taken: 06/15/2016 Received: 06/16/2016 Reported: 06/17/2016 Physicians: Los Ortiz M.D. Dmitry Gerber, M.D. Specimen(s) Received A: FIBRINOUS EXUDATE B: UTERINE MASS BIOPSY C: FECALITH Clinical History Intra-abdominal abscess Perforated uterus with purulent discharge Intra-abdominal abscess small bowel fecalith Final Diagnosis A. FIBRINOUS EXUDATE, REMOVAL: FIBRINOPURULENT MATERIAL. SCATTERED CELLS MORPHOLOGICALLY CONSISTENT WITH REACTIVE MESOTHELIAL CELLS PRESENT. NO MALIGNANT CELLS IDENTIFIED. B. UTERINE MASS, BIOPSY: SMOOTH MUSCLE CONSISTENT WITH MYOMETRIUM, WITH ASSOCIATED GLANDULAR TISSUE SUGGESTIVE OF ENDOMETRIOSIS. EXTENSIVE FIBRINOPURULENT MATERIAL IS PRESENT, AND AREAS OF NECROSIS ARE PRESENT. NO MALIGNANT CELLS IDENTIFIED. C. FECALITH, REMOVAL: INSPISSATED AND DEGENERATED PLANT MATERIAL WITH ABUNDANT BACTERIA CONSISTENT WITH FECALITH. Comment: This case was discussed with Dr. Mercado on 06/17/2016. Also see [id number]. Electronically Signed Valerio Scott M.D. Gross Description A. Received in formalin labelled "fibrinous exudate" is a 2.7 x 2.5 x 0.7 cm aggregate of zeng material. No focal lesions are identified. Brush Holder Inspector sections are submitted one cassette. B. Received in formalin labelled "uterine mass biopsy" is a 2.5 x 1.8 x 1.0 cm portion of zeng and medina tissue. Sectioned and totally submitted in 3 cassettes. C. Received in formalin labelled "fecalith" is a 1.8 x 1.5 x 1.2 cm portion of green and brown material with a laminated cut surface. A financial representative section is submitted one cassette. [facility]/06/16/2016 [facility]/06/16/2016
[2016-06-17] MEDS ORDERED: clonazePAM 0.5 MG TABLET ONE (15:56)
--- NOTE | 2016-06-17 16:25 | PN ---
GI Progress Note Subjective: GASTROENTEROLOGY TO BE TRANSFERED TO , DOING WELL POST OP DAY #2 PASSING FLATUS NO BM - Objective Vital Signs: Vital Signs Temperature 98.9 F 06/17/16 16:00 Pulse Rate 100 H 06/17/16 16:00 Respiratory Rate 17 06/17/16 16:00 Blood Pressure 154/85 06/17/16 16:00 O2 Sat by Pulse Oximetry (%) 97 06/17/16 11:12 Constitutional: No Distress, Calm Eyes: Yes: Conjunctiva Clear HENT: Yes: Normocephalic Cardiovascular: Yes: Pulse Irregular, Murmur Respiratory: Yes: Regular Gastrointestinal Inspection: Yes: Distention (MILD DISTENSION), Scars, Other ( DRESSINGS) ...Auscultate: Yes: Hypoactive Bowel Sounds, Other (NORMAL PITCH) ...Palpate: Yes: Tenderness (LOWER ABDOMINAL TENDERNESS POST OP) Extremities: Yes: WNL Labs: CBC, BMP 06/17/16 13:59 06/17/16 05:15 INR, PTT INR 1.69 (0.82-1.09) H 06/17/16 05:15 Laboratory Tests 06/15/16 06/17/16 06/17/16 15:45 05:15 07:15 WBC RBC Hgb Hct MCV MCHC RDW Plt Count MPV ABG pH 7.41 ABG pCO2 at Pt Temp 39.8 ABG pO2 at Pt Temp 96.3 ABG HCO3 24.8 ABG O2 Sat (Measured) 97.6 ABG O2 Content 11.8 L ABG Base Excess 0.7 Brian Test Positive O2 Delivery Device Nasal Oxygen Flow Rate 2l Sodium 142 Potassium 4.4 Chloride 108 H Carbon Dioxide 25 Anion Gap 9 BUN 21 H Creatinine 0.8 Creat Clearance w eGFR > 60 Random Glucose 107 H Calcium 8.1 L Phosphorus 1.3 L D Magnesium 2.0 Total Bilirubin 0.2 D AST 36 D ALT 73 D Alkaline Phosphatase 92 Total Protein 5.2 L Albumin 1.9 L Peritoneal WBC 7718 Peritoneal RBC 93900 Periton Neutrophils 91 Periton Lymphocytes 3 Peritoneal Monocytes 1 Peritoneal Eosinophils 1 Periton Mesothelial 1 Periton Macrophages 3 06/17/16 13:59 WBC 23.4 H RBC 3.11 L Hgb 8.7 L Hct 27.1 L MCV 87.3 MCHC 32.1 RDW 14.1 Plt Count 416 MPV 7.2 L ABG pH ABG pCO2 at Pt Temp ABG pO2 at Pt Temp ABG HCO3 ABG O2 Sat (Measured) ABG O2 Content ABG Base Excess Brian Test O2 Delivery Device Oxygen Flow Rate Sodium Potassium Chloride Carbon Dioxide Anion Gap BUN Creatinine Creat Clearance w eGFR Random Glucose Calcium Phosphorus Magnesium Total Bilirubin AST ALT Alkaline Phosphatase Total Protein Albumin Peritoneal WBC Peritoneal RBC Periton Neutrophils Periton Lymphocytes Peritoneal Monocytes Peritoneal Eosinophils Periton Mesothelial Periton Macrophages Problem List - Problems (1) Pelvic fluid collection Assessment/Plan: PELVIC ABSCESS FORM PERFORATED UTERUS, PATH SO FAR WITHOUT MALIGNANCY WILL SIGN OF CASE TODAY IT APPEARS TO MOSTLY A 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
[2016-06-17] MEDS ORDERED: ONDANSETRON 4 MG/2 ML VIAL IVPB PRN (16:31)
[2016-06-17] MEDS ORDERED: AMINO ACIDS/PROTEIN HYDROLYS SUGAR-FREE 30 ML PACKET PO SCH (17:30)
[2016-06-17] MEDS: AMINO ACIDS/PROTEIN HYDROLYS SUGAR-FREE 30 ML PACKET PO SCH ×2 (17:46→17:52)
--- NOTE | 2016-06-17 17:58 | CONS ---
DATE OF CONSULTATION: 06/15/2016 DATE OF DICTATION: 06/17/2016 INTRAOPERATIVE CONSULTATION REPORT REASON FOR CONSULTATION: An 80-year-old female admitted with abdominal pain and pelvic/intraabdominal collection. The patient was undergoing surgery with Dr. Jace Wayne and there was a concern for uterine anomaly with the pelvic abscess and possible malignancy versus pelvic inflammatory disease. PROCEDURE: I was asked for an intraoperative consultation with the surgery being performed by Dr. Wayne. I scrubbed in, and the patient was undergoing exploratory laparotomy via midline incision. The dissection of the bowel was already completed and Dr. Wayne had performed bowel inspection. Upon intraoperative examination, the uterus was noted to be greatly enlarged and inflamed. There was a copious amount of exudate noted on and around the uterus as well as the bowel. The uterus was also noted to contain a uterine mass and largely adherent to the left pelvic sidewall. The uterus was inspected and traced to the right round ligament and towards the anterior cul-de-sac. The posterior cul-de-sac could not be dissected and was densely adherent. There was an area of spontaneous drainage from the uterine fundus/mass. Copious amounts of purulent drainage were noted from that area. The decision was made to biopsy the region of the uterus was spontaneous drainage and mass. An excisional biopsy was performed. The decision was made not to proceed with any extensive dissection or hysterectomy due to patient's condition. She had some active bleeding. She is known to be using anticoagulation. The patient was also noted to have a lot of inflamed and friable tissue with multiple adhesions around the uterus and pelvis. Further dissection would jeopardize patient's chances of survival. So, the decision was to proceed with the biopsy of the mass only. The biopsy was performed, and a primary closure of the biopsy wound was performed with good hemostasis; after this was completed, I scrubbed out, and the remainder of the surgery was performed by Dr. Wayne. BALWINDER MURPHY M.D. [id number]
[2016-06-17] MEDS: clonazePAM 0.5 MG TABLET PO SCH (21:23)
[2016-06-17] MEDS ORDERED: ACETAMINOPHEN 325 MG TABLET (FP) ONE (21:55)
[2016-06-17] MEDS: ACETAMINOPHEN 325 MG TABLET (FP) PO PRN (22:00)
[2016-06-18] MEDS: METOPROLOL TARTRATE 5 MG/5 ML VIAL IVPUSH PRN ×2 (01:10→06:00)
[2016-06-18] MEDS: METRONIDAZOLE 500 MG PREMIXED 100 ML IVPB SCH ×3 (03:00→17:52)
[2016-06-18] MEDS ORDERED: clonazePAM 0.5 MG TABLET ONE (04:39)
[2016-06-18] MEDS ORDERED: clonazePAM 0.5 MG TABLET PO ONE (04:39)
[2016-06-18] MEDS: D5-1/2NS+20 MEQ KCL - 1,000 ML IV SCH ×2 (05:37→17:52)
[2016-06-18 07:43] LABS: ALLENS TEST POSITIVE; ART PUNCT SITE LEFT RADIAL; ARTERIAL BLD GAS O2 SATURATION 94.8 % (90-98.9); ARTERIAL BLOOD GAS BASE EXCESS 0.3 meq/l (-2-2); ARTERIAL BLOOD GAS HCO3 23.1 meq/L (22-26); ARTERIAL BLOOD GAS PO2 67.2 mmHg (68-100); ARTERIAL BLOOD GAS pH 7.48 (7.35-7.45)
[2016-06-18 07:44] LABS: PT. ON O2? NO
[2016-06-18 07:51] LABS: INR 1.85 (0.82-1.09); PROTHROMBIN TIME (PATIENT) 20.6 SEC (9.98-11.88)
[2016-06-18 07:53] LABS: ACTIVATED PTT 29.6 SECONDS (26.9-34.4)
[2016-06-18 07:59] LABS: MCH 28.1 pg (25.7-33.7); MCHC 32.1 g/dl (32.0-36.0); MEAN CELL VOLUME 87.4 fl (80-96); PLATELET COUNT 631 K/MM3 (134-434); RDW 14.2 % (11.6-15.6); WHITE BLOOD COUNT 28.6 K/mm3 (4.0-10.0)
[2016-06-18 08:00] LABS: MEAN PLT VOLUME 7.6 fl (7.5-11.1)
[2016-06-18 08:52] LABS: ALBUMIN 2.3 g/dl (3.4-5.0); BILIRUBIN,TOTAL 0.4 mg/dL (0.2-1.0); CALCIUM 8.7 mg/dL (8.5-10.1); CREATININE 0.9 mg/dL (0.55-1.02); TOT PROT 6.2 g/dl (6.4-8.2)
[2016-06-18] MEDS: AMINO ACIDS/PROTEIN HYDROLYS SUGAR-FREE 30 ML PACKET PO SCH ×2 (09:00→17:52)
[2016-06-18] MEDS: CEFTRIAXONE 100 ML IVPB SCH (09:16)
[2016-06-18 09:50] LABS: ANISOCYTOSIS 1+; HYPOCHROMIA 1+; PLATELET COMMENT2 NO CLOTTING DETECTED; PLATELET ESTIMATE INCREASED (NORMAL)
[2016-06-18 09:52] LABS: PLATELET COMMENT3 FEW LARGE PLTS
[2016-06-18] MEDS: CYANOCOBALAMIN (VITAMIN B-12) 1000 MCG/1 ML VIAL IM SCH (10:00)
--- NOTE | 2016-06-18 10:22 | PN ---
Progress Note, Physician Chief Complaint: Cardiology for Sigifredo Sitting in chair, no acute distress --TELE: NSR with bursts of PSVT, frequent APCs. Cannot exclude periods of PAF as well (has history of this) - Current Medication List Current Medications: Active Medications Acetaminophen (Tylenol -) 650 mg PO Q6H PRN PRN Reason: FEVER OR PAIN Last Admin: 06/17/16 22:00 Dose: 650 mg Amino Acids (Prostat Sugar-Free Packet -) 30 ml PO BID@0800,1730 [facility] Last Admin: 06/17/16 17:52 Dose: Not Given Ascorbic Acid (Vitamin C -) 500 mg PO DAILY [facility] Clonazepam (Klonopin -) 0.5 mg PO BID [facility] Last Admin: 06/17/16 21:23 Dose: 0.5 mg Clonidine HCl (Catapres Tts Patch -) 0.1 mg TD Q7D@1000 [facility] Cyanocobalamin (Vitamin B12 Injection -) 1,000 mcg IM DAILY [facility] Ferrous Sulfate (Feosol -) 325 mg PO DAILY [facility] Folic Acid (Folic Acid -) 1 mg PO DAILY [facility] Potassium Chloride/Dextrose/Sod Cl (D5-1/2ns+20 Meq Kcl -) 1,000 mls @ 75 mls/ hr IV ASDIR [facility] Last Admin: 06/18/16 05:37 Dose: 75 mls/hr Ceftriaxone Sodium (Rocephin 2gm Ivpb (Pre-Docked)) 100 mls @ 200 mls/hr IVPB DAILY [facility] Last Admin: 06/18/16 09:16 Dose: 200 mls/hr Metronidazole (Flagyl 500mg Premixed Ivpb -) 100 mls @ 100 mls/hr IVPB Q8H-IV [facility] Last Admin: 06/18/16 09:16 Dose: 100 mls/hr Lactobacillus Acidophilus (Bacid -) 1 tab PO DAILY [facility] Metoprolol Tartrate (Lopressor Injection -) 5 mg IVPUSH Q4H PRN PRN Reason: HYPERTENSION Last Admin: 06/18/16 06:00 Dose: 5 mg Multivitamins/Minerals/Vitamin C (Tab-A-Vit -) 1 tab PO DAILY [facility] Ondansetron HCl (Zofran Injection) 4 mg IVPB Q6H PRN PRN Reason: NAUSEA Potassium Phos/Sodium Phos (Phos-Nak Packet -) 1 packet PO DAILY [facility] - Objective Vital Signs: Vital Signs Temperature 98.1 F 06/18/16 05:13 Pulse Rate 190 H 06/18/16 06:00 Respiratory Rate 20 06/18/16 05:13 Blood Pressure 112/80 06/18/16 06:00 O2 Sat by Pulse Oximetry (%) 94 L 06/17/16 21:00 Constitutional: Yes: No Distress Cardiovascular: Yes: Regular Rate and Rhythm Respiratory: Yes: CTA Bilaterally Gastrointestinal: Yes: Other (drain in place) Edema: No Labs: CBC, BMP 06/18/16 06:00 06/18/16 06:00 INR, PTT INR 1.85 (0.82-1.09) H 06/18/16 06:00 Laboratory Tests 06/18/16 06/18/16 06/18/16 06:00 06:00 06:00 WBC 28.6 H Hgb 9.9 L D Hct 30.9 L Plt Count 631 H D INR 1.85 H ABG pH ABG pCO2 at Pt Temp ABG pO2 at Pt Temp Sodium 139 Potassium 4.6 BUN 17 Creatinine 0.9 06/18/16 07:40 WBC Hgb Hct Plt Count INR ABG pH 7.48 H ABG pCO2 at Pt Temp 31.5 L D ABG pO2 at Pt Temp 67.2 L D Sodium Potassium BUN Creatinine - ....Imaging EKG: Image Reviewed Assessment/Plan Perforated uterus, possible uterine CA H/o PAF Now with runs of PSVT and possible AF w/ RVR, normal LV fxn REC: Electrolytes are normal. Will give additional dose of Lopressor 2.5mg IV x1 now. Start Lopressor 12.5mg PO BID. Resume AC when deemed safe to do so from surgical standpoint. Continue tele. Anum for Sigifredo
--- NOTE | 2016-06-18 10:24 | PN ---
Progress Note, Physician History of Present Illness: pulmonary alert,oob-chair,comfortable,denies sob,cp. pt on clear liquids - Current Medication List Current Medications: Active Medications Acetaminophen (Tylenol -) 650 mg PO Q6H PRN PRN Reason: FEVER OR PAIN Last Admin: 06/17/16 22:00 Dose: 650 mg Amino Acids (Prostat Sugar-Free Packet -) 30 ml PO BID@0800,1730 [facility] Last Admin: 06/17/16 17:52 Dose: Not Given Ascorbic Acid (Vitamin C -) 500 mg PO DAILY [facility] Clonazepam (Klonopin -) 0.5 mg PO BID [facility] Last Admin: 06/17/16 21:23 Dose: 0.5 mg Clonidine HCl (Catapres Tts Patch -) 0.1 mg TD Q7D@1000 [facility] Cyanocobalamin (Vitamin B12 Injection -) 1,000 mcg IM DAILY [facility] Ferrous Sulfate (Feosol -) 325 mg PO DAILY [facility] Folic Acid (Folic Acid -) 1 mg PO DAILY [facility] Potassium Chloride/Dextrose/Sod Cl (D5-1/2ns+20 Meq Kcl -) 1,000 mls @ 75 mls/ hr IV ASDIR [facility] Last Admin: 06/18/16 05:37 Dose: 75 mls/hr Ceftriaxone Sodium (Rocephin 2gm Ivpb (Pre-Docked)) 100 mls @ 200 mls/hr IVPB DAILY [facility] Last Admin: 06/18/16 09:16 Dose: 200 mls/hr Metronidazole (Flagyl 500mg Premixed Ivpb -) 100 mls @ 100 mls/hr IVPB Q8H-IV [facility] Last Admin: 06/18/16 09:16 Dose: 100 mls/hr Lactobacillus Acidophilus (Bacid -) 1 tab PO DAILY [facility] Metoprolol Tartrate (Lopressor Injection -) 5 mg IVPUSH Q4H PRN PRN Reason: HYPERTENSION Last Admin: 06/18/16 06:00 Dose: 5 mg Multivitamins/Minerals/Vitamin C (Tab-A-Vit -) 1 tab PO DAILY [facility] Ondansetron HCl (Zofran Injection) 4 mg IVPB Q6H PRN PRN Reason: NAUSEA Potassium Phos/Sodium Phos (Phos-Nak Packet -) 1 packet PO DAILY [facility] - Objective Vital Signs: Vital Signs Temperature 98.1 F 06/18/16 05:13 Pulse Rate 190 H 06/18/16 06:00 Respiratory Rate 20 06/18/16 05:13 Blood Pressure 112/80 06/18/16 06:00 O2 Sat by Pulse Oximetry (%) 94 L 06/17/16 21:00 Constitutional: Yes: Calm, Thin Eyes: Yes: WNL, Other HENT: Yes: WNL Neck: Yes: WNL Cardiovascular: Yes: Pulse Irregular, S1, S2 Respiratory: Yes: Diminished Gastrointestinal: Yes: Normal Bowel Sounds, Soft Extremities: Yes: WNL Edema: No Labs: CBC, BMP 06/18/16 06:00 06/18/16 06:00 INR, PTT INR 1.85 (0.82-1.09) H 06/18/16 06:00 Problem List - Problems (1) Afib Code(s): I48.91 - UNSPECIFIED ATRIAL FIBRILLATION (2) Anemia Code(s): D64.9 - ANEMIA, UNSPECIFIED (3) Bowel perforation Code(s): K63.1 - PERFORATION OF INTESTINE (NONTRAUMATIC) (4) Dementia Code(s): F03.90 - UNSPECIFIED DEMENTIA WITHOUT BEHAVIORAL DISTURBANCE (5) GI tract abscess Code(s): K63.0 - ABSCESS OF INTESTINE (6) Intra-abdominal abscess Code(s): K65.1 - PERITONEAL ABSCESS (7) Pelvic fluid collection Code(s): R18.8 - OTHER ASCITES (8) Septic shock Code(s): A41.9 - SEPSIS, UNSPECIFIED ORGANISM R65.21 - SEVERE SEPSIS WITH SEPTIC SHOCK (9) Rapid atrial fibrillation Code(s): I48.91 - UNSPECIFIED ATRIAL FIBRILLATION (10) Renal insufficiency Code(s): N28.9 - DISORDER OF KIDNEY AND URETER, UNSPECIFIED (11) Sepsis Code(s): A41.9 - SEPSIS, UNSPECIFIED ORGANISM Qualifiers: Sepsis type: Escherichia coli Qualified Code(s): A41.51 - Sepsis due to Escherichia coli [E. coli] Assessment/Plan Assessment/Plan S/P Exploratory laparotomy/abdominal washout/drainage of intraabdominal abscess/ enterotomy with removal of fecalith and primary repair due to perforated uterus. Additional findings copious : purulent drainage from the uterus, fibrinous exudate throughout small bowel. HTN HPL A-fib previously on Eliquis Dementia Anxiety O2 to maintain O2 saturation IVF ABX per ID AC when ok with surgery SCDs Pain control Incentive Spirometry PO as tolerated DR SOSA
[2016-06-18] MEDS: MULTIVITAMINS (DAILY MVI) TABLET (FP) PO SCH (10:25)
[2016-06-18] MEDS: LACTOBACILLUS ACIDOPHILUS 1 EACH TAB (FP) PO SCH (10:25)
[2016-06-18] MEDS: ASCORBIC ACID 500 MG TABLET (FP) PO SCH (10:26)
[2016-06-18] MEDS: clonazePAM 0.5 MG TABLET PO SCH ×4 (10:26→23:00)
[2016-06-18] MEDS: NAPH,MB-DB/K PH,MBDB POWDER PACKET PO SCH (10:26)
[2016-06-18] MEDS: FERROUS SO4 325 MG TABLET (FP) PO SCH (10:26)
[2016-06-18] MEDS: FOLIC ACID 1 MG TABLET (FP) PO SCH (10:26)
--- NOTE | 2016-06-18 10:32 | PN ---
Progress Note (short form) - Note Progress Note: Surgery- Dr. Wayne Patient seen and examined this morning. Patient has been OOB to chair. Patient denies abdominal pain. Patient has been tolerating water to drink. Patient reports soft BM this morning. Denies fever/chills/nausea/vomiting. Patient is anxious, waiting for call back from sons. Last Vital Signs Temp Pulse Resp BP Pulse Ox 98.1 F 190 H 20 112/80 94 L 06/18/16 05:13 06/18/16 06:00 06/18/16 05:13 06/18/16 06:00 06/17/16 21:00 CBC, BMP 06/18/16 06:00 06/18/16 06:00 JES: 45 ml recorded yesterday Exam: Gen: NAD Abd: Soft, nondistended, nontender, dressing and packing changed on rounds, midline incision with some guan[place]ito, no erythema, JES in place, serosanguineous Problem List - Problems (1) Intra-abdominal abscess Code(s): K65.1 - PERITONEAL ABSCESS (2) Pelvic fluid collection Assessment/Plan: Continue clears Continue drain, monitor output Dressing and packing changed on rounds Continue abx per ID H&H stable 9.9/30.9, may start heparin for AC Incentive spirometry May DC [place] from surgical standpoint Discussed with Dr. Wayne. Code(s): R18.8 - OTHER ASCITES
--- NOTE | 2016-06-18 10:58 | PN ---
Progress Note, Physician Chief Complaint: AWAKE ALERT +ANXIETY DENIES CHEST PAIN +TACHYCARDIA ON MONITOR - Current Medication List Current Medications: Active Medications Acetaminophen (Tylenol -) 650 mg PO Q6H PRN PRN Reason: FEVER OR PAIN Last Admin: 06/17/16 22:00 Dose: 650 mg Amino Acids (Prostat Sugar-Free Packet -) 30 ml PO BID@0800,1730 [facility] Last Admin: 06/17/16 17:52 Dose: Not Given Ascorbic Acid (Vitamin C -) 500 mg PO DAILY [facility] Last Admin: 06/18/16 10:26 Dose: 500 mg Clonazepam (Klonopin -) 0.5 mg PO TID [facility] Clonidine HCl (Catapres Tts Patch -) 0.1 mg TD Q7D@1000 [facility] Cyanocobalamin (Vitamin B12 Injection -) 1,000 mcg IM DAILY [facility] Ferrous Sulfate (Feosol -) 325 mg PO DAILY [facility] Last Admin: 06/18/16 10:26 Dose: 325 mg Folic Acid (Folic Acid -) 1 mg PO DAILY [facility] Last Admin: 06/18/16 10:26 Dose: 1 mg Potassium Chloride/Dextrose/Sod Cl (D5-1/2ns+20 Meq Kcl -) 1,000 mls @ 75 mls/ hr IV ASDIR [facility] Last Admin: 06/18/16 05:37 Dose: 75 mls/hr Ceftriaxone Sodium (Rocephin 2gm Ivpb (Pre-Docked)) 100 mls @ 200 mls/hr IVPB DAILY [facility] Last Admin: 06/18/16 09:16 Dose: 200 mls/hr Metronidazole (Flagyl 500mg Premixed Ivpb -) 100 mls @ 100 mls/hr IVPB Q8H-IV [facility] Last Admin: 06/18/16 09:16 Dose: 100 mls/hr Lactobacillus Acidophilus (Bacid -) 1 tab PO DAILY [facility] Last Admin: 06/18/16 10:25 Dose: 1 tab Metoprolol Tartrate (Lopressor Injection -) 5 mg IVPUSH Q4H PRN PRN Reason: HYPERTENSION Last Admin: 06/18/16 06:00 Dose: 5 mg Metoprolol Tartrate (Lopressor -) 12.5 mg PO BID [facility] Multivitamins/Minerals/Vitamin C (Tab-A-Vit -) 1 tab PO DAILY [facility] Last Admin: 06/18/16 10:25 Dose: 1 tab Ondansetron HCl (Zofran Injection) 4 mg IVPB Q6H PRN PRN Reason: NAUSEA Potassium Phos/Sodium Phos (Phos-Nak Packet -) 1 packet PO DAILY [facility] Last Admin: 06/18/16 10:26 Dose: 1 packet - Objective Vital Signs: Vital Signs Temperature 98.1 F 06/18/16 05:13 Pulse Rate 190 H 06/18/16 06:00 Respiratory Rate 20 06/18/16 05:13 Blood Pressure 112/80 06/18/16 06:00 O2 Sat by Pulse Oximetry (%) 94 L 06/17/16 21:00 Constitutional: Yes: Mild Distress Eyes: Yes: WNL HENT: Yes: WNL Neck: Yes: WNL Cardiovascular: Yes: Pulse Irregular Respiratory: Yes: WNL Gastrointestinal: Yes: WNL Genitourinary: Yes: WNL Musculoskeletal: Yes: WNL Extremities: Yes: WNL Edema: No Peripheral Pulses WNL: Yes Integumentary: Yes: Incision Wound/Incision: Yes: Clean/Dry Neurological: Yes: Pre-Existing Deficit, Weakness ...Motor Strength: LLE, RLE Psychiatric: Yes: Agitated Labs: CBC, BMP 06/18/16 06:00 06/18/16 06:00 INR, PTT INR 1.85 (0.82-1.09) H 06/18/16 06:00 Problem List - Problems (1) Anxiety Code(s): F41.9 - ANXIETY DISORDER, UNSPECIFIED (2) HTN (hypertension) Code(s): I10 - ESSENTIAL (PRIMARY) HYPERTENSION Qualifiers: Hypertension type: essential hypertension Qualified Code(s): I10 - Essential (primary) hypertension (3) Hyperlipidemia Code(s): E78.5 - HYPERLIPIDEMIA, UNSPECIFIED Qualifiers: Hyperlipidemia type: pure hypercholesterolemia Qualified Code(s): E78.0 - Pure hypercholesterolemia (4) Rapid atrial fibrillation Code(s): I48.91 - UNSPECIFIED ATRIAL FIBRILLATION (5) Renal insufficiency Code(s): N28.9 - DISORDER OF KIDNEY AND URETER, UNSPECIFIED (6) Uterine abscess Code(s): N71.9 - INFLAMMATORY DISEASE OF UTERUS, UNSPECIFIED Assessment/Plan UTERINE ABSCESS/EXPLORATORY LAP POD#3 AWAKE , IMPROVING, AWAIT BIOPSY RESULTS OF UTERUS IV ABX DVT PROPHYLAXIS INCENTIVE SPIROMETRY KLONOPIN TID
--- NOTE | 2016-06-18 11:06 | PN ---
Progress Note, Physician Chief Complaint: ID Ceftriaxone metrondiazole Alert Rapid heart rate Anxious - Current Medication List Current Medications: Active Medications Acetaminophen (Tylenol -) 650 mg PO Q6H PRN PRN Reason: FEVER OR PAIN Last Admin: 06/17/16 22:00 Dose: 650 mg Amino Acids (Prostat Sugar-Free Packet -) 30 ml PO BID@0800,1730 [facility] Last Admin: 06/17/16 17:52 Dose: Not Given Ascorbic Acid (Vitamin C -) 500 mg PO DAILY [facility] Last Admin: 06/18/16 10:26 Dose: 500 mg Clonazepam (Klonopin -) 0.5 mg PO TID [facility] Clonidine HCl (Catapres Tts Patch -) 0.1 mg TD Q7D@1000 [facility] Cyanocobalamin (Vitamin B12 Injection -) 1,000 mcg IM DAILY [facility] Ferrous Sulfate (Feosol -) 325 mg PO DAILY [facility] Last Admin: 06/18/16 10:26 Dose: 325 mg Folic Acid (Folic Acid -) 1 mg PO DAILY [facility] Last Admin: 06/18/16 10:26 Dose: 1 mg Potassium Chloride/Dextrose/Sod Cl (D5-1/2ns+20 Meq Kcl -) 1,000 mls @ 75 mls/ hr IV ASDIR [facility] Last Admin: 06/18/16 05:37 Dose: 75 mls/hr Ceftriaxone Sodium (Rocephin 2gm Ivpb (Pre-Docked)) 100 mls @ 200 mls/hr IVPB DAILY [facility] Last Admin: 06/18/16 09:16 Dose: 200 mls/hr Metronidazole (Flagyl 500mg Premixed Ivpb -) 100 mls @ 100 mls/hr IVPB Q8H-IV [facility] Last Admin: 06/18/16 09:16 Dose: 100 mls/hr Lactobacillus Acidophilus (Bacid -) 1 tab PO DAILY [facility] Last Admin: 06/18/16 10:25 Dose: 1 tab Metoprolol Tartrate (Lopressor Injection -) 5 mg IVPUSH Q4H PRN PRN Reason: HYPERTENSION Last Admin: 06/18/16 06:00 Dose: 5 mg Metoprolol Tartrate (Lopressor -) 12.5 mg PO BID [facility] Multivitamins/Minerals/Vitamin C (Tab-A-Vit -) 1 tab PO DAILY [facility] Last Admin: 06/18/16 10:25 Dose: 1 tab Ondansetron HCl (Zofran Injection) 4 mg IVPB Q6H PRN PRN Reason: NAUSEA Potassium Phos/Sodium Phos (Phos-Nak Packet -) 1 packet PO DAILY [facility] Last Admin: 06/18/16 10:26 Dose: 1 packet - Objective Vital Signs: Vital Signs Temperature 98.1 F 06/18/16 05:13 Pulse Rate 190 H 06/18/16 06:00 Respiratory Rate 20 06/18/16 05:13 Blood Pressure 112/80 06/18/16 06:00 O2 Sat by Pulse Oximetry (%) 94 L 06/17/16 21:00 Constitutional: Yes: No Distress Neck: Yes: WNL, Supple Cardiovascular: Yes: Regular Rate and Rhythm, S1, S2 Respiratory: Yes: Diminished Gastrointestinal: Yes: Soft. No: Tenderness Edema: No Labs: CBC, BMP 06/18/16 06:00 06/18/16 06:00 INR, PTT INR 1.85 (0.82-1.09) H 06/18/16 06:00 Problem List - Problems (1) Diverticulitis of colon with perforation Code(s): K57.20 - DVTRCLI OF LG INT W PERFORATION AND ABSCESS W/O BLEEDING (2) Pelvic fluid collection Code(s): R18.8 - OTHER ASCITES (3) Septic shock Code(s): A41.9 - SEPSIS, UNSPECIFIED ORGANISM R65.21 - SEVERE SEPSIS WITH SEPTIC SHOCK Assessment/Plan Microbiology 06/15/16 15:45 Peritoneal Fluid Gram Stain - Final 06/15/16 05:00 Nasopharyngeal Swab Influenza Types A,B Antigen (PEDRO) - Final 06/15/16 05:00 Nasopharyngeal Swab - Final 06/15/16 01:56 Urine - Urine [place] Urine Culture - Final Pseudomonas Aeruginosa 06/15/16 15:45 Peritoneal Fluid Body Fluid Culture - Preliminary NO AEROBIC GROWTH, 24 HRS 06/15/16 05:00 Nasopharyngeal Swab Respiratory Virus Panel - Preliminary 06/15/16 02:50 Blood - Peripheral Venous Blood Culture - Preliminary NO GROWTH OBTAINED AFTER 72 HOURS, INCUBATION TO CONTINUE FOR 2 DAYS. Laboratory Tests 06/18/16 06/18/16 06/18/16 06:00 06:00 07:40 WBC 28.6 H Hgb 9.9 L D Hct 30.9 L Plt Count 631 H D ABG pH 7.48 H ABG pCO2 at Pt Temp 31.5 L D ABG pO2 at Pt Temp 67.2 L D Creat Clearance w eGFR 59.94 Assessment Perforated uterus ? carcinoma with abscess Plan Based on urine c/s switch to Zosyn WBC elevation likely malignancy related [place] [facility]
[2016-06-18] MEDS ORDERED: DIGOXIN 0.5 MG/2 ML AMPUL IVPUSH ONE ×2 (11:08→17:00)
--- NOTE | 2016-06-18 12:07 | PN ---
Progress Note (SOAP) - Subjective Chief Complaint: Pt states feeling better, pain decreased, (+) flatus, no Nausea/vomiting History of Present Illness: POD#3 s/p explor laparotomy, drainage of abd/pelvic abscess, enterotomy. - Current Medications Current Medications: Active Medications Acetaminophen (Tylenol -) 650 mg PO Q6H PRN PRN Reason: FEVER OR PAIN Last Admin: 06/17/16 22:00 Dose: 650 mg Amino Acids (Prostat Sugar-Free Packet -) 30 ml PO BID@0800,1730 [facility] Last Admin: 06/17/16 17:52 Dose: Not Given Ascorbic Acid (Vitamin C -) 500 mg PO DAILY [facility] Last Admin: 06/18/16 10:26 Dose: 500 mg Clonazepam (Klonopin -) 0.5 mg PO TID [facility] Clonidine HCl (Catapres Tts Patch -) 0.1 mg TD Q7D@1000 [facility] Cyanocobalamin (Vitamin B12 Injection -) 1,000 mcg IM DAILY [facility] Digoxin (Lanoxin Injection -) 0.25 mg IVPUSH ONCE ONE Stop: 06/18/16 17:01 Ferrous Sulfate (Feosol -) 325 mg PO DAILY [facility] Last Admin: 06/18/16 10:26 Dose: 325 mg Folic Acid (Folic Acid -) 1 mg PO DAILY [facility] Last Admin: 06/18/16 10:26 Dose: 1 mg Potassium Chloride/Dextrose/Sod Cl (D5-1/2ns+20 Meq Kcl -) 1,000 mls @ 75 mls/ hr IV ASDIR [facility] Last Admin: 06/18/16 05:37 Dose: 75 mls/hr Ceftriaxone Sodium (Rocephin 2gm Ivpb (Pre-Docked)) 100 mls @ 200 mls/hr IVPB DAILY [facility] Last Admin: 06/18/16 09:16 Dose: 200 mls/hr Metronidazole (Flagyl 500mg Premixed Ivpb -) 100 mls @ 100 mls/hr IVPB Q8H-IV [facility] Last Admin: 06/18/16 09:16 Dose: 100 mls/hr Lactobacillus Acidophilus (Bacid -) 1 tab PO DAILY [facility] Last Admin: 06/18/16 10:25 Dose: 1 tab Metoprolol Tartrate (Lopressor Injection -) 5 mg IVPUSH Q4H PRN PRN Reason: HYPERTENSION Last Admin: 06/18/16 06:00 Dose: 5 mg Metoprolol Tartrate (Lopressor -) 12.5 mg PO BID [facility] Multivitamins/Minerals/Vitamin C (Tab-A-Vit -) 1 tab PO DAILY [facility] Last Admin: 06/18/16 10:25 Dose: 1 tab Ondansetron HCl (Zofran Injection) 4 mg IVPB Q6H PRN PRN Reason: NAUSEA Potassium Phos/Sodium Phos (Phos-Nak Packet -) 1 packet PO DAILY [facility] Last Admin: 06/18/16 10:26 Dose: 1 packet - Objective Vital Signs: Vital Signs Temperature 98.1 F 06/18/16 05:13 Pulse Rate 190 H 06/18/16 06:00 Respiratory Rate 20 06/18/16 05:13 Blood Pressure 112/80 06/18/16 06:00 O2 Sat by Pulse Oximetry (%) 94 L 06/17/16 21:00 Constitutional: Yes: No Distress, Anxious, Thin Eyes: Yes: WNL, Conjunctiva Clear HENT: Yes: Atraumatic, Normocephalic Neck: Yes: Supple, Trachea Midline Cardiovascular: Yes: Tachycardia Respiratory: Yes: Regular, CTA Bilaterally Gastrointestinal: Yes: Normal Bowel Sounds, Soft Genitourinary: Yes: WNL Musculoskeletal: Yes: WNL Extremities: Yes: WNL Peripheral Pulses WNL: Yes Edema: No Integumentary: Yes: WNL Wound/Incision: Yes: Clean/Dry, Other (packing in place, no discharge/drainage, granulating well; JES drain with serosanguinous fluid) Neurological: Yes: Alert, Oriented Psychiatric: Yes: WNL Labs Lab Results: CBC, BMP 06/18/16 06:00 06/18/16 06:00 Problem List - Problems (1) Pelvic fluid collection Assessment/Plan: Drained intraop, JES drain in situ. Continue JES per surgery Code(s): R18.8 - OTHER ASCITES (2) PID (acute pelvic inflammatory disease) Assessment/Plan: Uterine mass bx is benign. Clinical picture c/w PID. Continue abx IV, as per ID. This was discussed with pt and her son. Code(s): N73.0 - ACUTE PARAMETRITIS AND PELVIC CELLULITIS
[2016-06-18] MEDS: METOPROLOL TARTRATE 25 MG TABLET (FP) PO SCH ×3 (13:15→23:45)
[2016-06-18] MEDS: DIGOXIN 0.5 MG/2 ML AMPUL IVPUSH SCH ×2 (17:51→23:30)
[2016-06-19] MEDS: METRONIDAZOLE 500 MG PREMIXED 100 ML IVPB SCH ×3 (02:30→17:00)
[2016-06-19] MEDS: DIGOXIN 0.5 MG/2 ML AMPUL IVPUSH SCH (05:53)
[2016-06-19] MEDS: clonazePAM 0.5 MG TABLET PO SCH ×3 (05:54→22:23)
[2016-06-19 07:40] LABS: WHITE BLOOD COUNT 25.8 K/mm3 (4.0-10.0)
[2016-06-19 07:41] LABS: BASOPHIL 0.4 % (0-2.0); EOSINOPHIL 0.2 % (0-4.5); MCH 28.1 pg (25.7-33.7); MCHC 31.8 g/dl (32.0-36.0); MEAN CELL VOLUME 88.2 fl (80-96); MEAN PLT VOLUME 7.3 fl (7.5-11.1); PLATELET COUNT 440 K/MM3 (134-434); RDW 14.3 % (11.6-15.6)
[2016-06-19 08:30] LABS: ALBUMIN 1.8 g/dl (3.4-5.0); ALK PHOS 77 U/L (45-117); ANION GAP 9 (8-16); BILIRUBIN,TOTAL 0.4 mg/dL (0.2-1.0); CALCIUM 7.7 mg/dL (8.5-10.1); CO2 23 mmol/L (21-32); CREATININE 0.8 mg/dL (0.55-1.02); GLUCOSE,RANDOM 74 mg/dL (74-106); SGOT/AST 33 U/L (15-37); SGPT/ALT 36 U/L (12-78); TOT PROT 5.1 g/dl (6.4-8.2)
[2016-06-19] MEDS: AMINO ACIDS/PROTEIN HYDROLYS SUGAR-FREE 30 ML PACKET PO SCH ×2 (08:43→16:51)
[2016-06-19] MEDS: CEFTRIAXONE 100 ML IVPB SCH (09:00)
[2016-06-19] MEDS: LACTOBACILLUS ACIDOPHILUS 1 EACH TAB (FP) PO SCH (09:43)
[2016-06-19] MEDS: CYANOCOBALAMIN (VITAMIN B-12) 1000 MCG/1 ML VIAL IM SCH (09:44)
[2016-06-19] MEDS: METOPROLOL TARTRATE 25 MG TABLET (FP) PO SCH ×3 (09:44→22:23)
[2016-06-19] MEDS: ASCORBIC ACID 500 MG TABLET (FP) PO SCH (09:44)
[2016-06-19] MEDS: MULTIVITAMINS (DAILY MVI) TABLET (FP) PO SCH (09:44)
[2016-06-19] MEDS: FERROUS SO4 325 MG TABLET (FP) PO SCH (09:44)
[2016-06-19] MEDS: FOLIC ACID 1 MG TABLET (FP) PO SCH (09:44)
[2016-06-19] MEDS: NAPH,MB-DB/K PH,MBDB POWDER PACKET PO SCH (09:45)
[2016-06-19] MEDS: ACETAMINOPHEN 325 MG TABLET (FP) PO PRN ×2 (09:46→22:23)
--- NOTE | 2016-06-19 09:53 | PN ---
Progress Note, Physician Chief Complaint: Yesterday after I rounded, developed more persistent PSVT and rapid AF with relatively lowish BP D/W Dr. Oneal and she was loaded with dig as BP limited used of further Beta tejas or Cardizem This AM she is in bed, "Please just leave me alone" History of Present Illness: TELE: AF, with rates settled [id number]. No sig pauses. - Current Medication List Current Medications: Active Medications Acetaminophen (Tylenol -) 650 mg PO Q6H PRN PRN Reason: FEVER OR PAIN Last Admin: 06/19/16 09:46 Dose: 650 mg Amino Acids (Prostat Sugar-Free Packet -) 30 ml PO BID@0800,1730 [facility] Last Admin: 06/19/16 08:43 Dose: 30 ml Ascorbic Acid (Vitamin C -) 500 mg PO DAILY [facility] Last Admin: 06/19/16 09:44 Dose: 500 mg Clonazepam (Klonopin -) 0.5 mg PO TID [facility] Last Admin: 06/19/16 05:54 Dose: Not Given Clonidine HCl (Catapres Tts Patch -) 0.1 mg TD Q7D@1000 [facility] Cyanocobalamin (Vitamin B12 Injection -) 1,000 mcg IM DAILY [facility] Last Admin: 06/19/16 09:44 Dose: 1,000 mcg Ferrous Sulfate (Feosol -) 325 mg PO DAILY [facility] Last Admin: 06/19/16 09:44 Dose: 325 mg Folic Acid (Folic Acid -) 1 mg PO DAILY [facility] Last Admin: 06/19/16 09:44 Dose: 1 mg Potassium Chloride/Dextrose/Sod Cl (D5-1/2ns+20 Meq Kcl -) 1,000 mls @ 75 mls/ hr IV ASDIR [facility] Last Admin: 06/18/16 17:52 Dose: Not Given Ceftriaxone Sodium (Rocephin 2gm Ivpb (Pre-Docked)) 100 mls @ 200 mls/hr IVPB DAILY [facility] Last Admin: 06/19/16 09:00 Dose: 200 mls/hr Metronidazole (Flagyl 500mg Premixed Ivpb -) 100 mls @ 100 mls/hr IVPB Q8H-IV [facility] Last Admin: 06/19/16 09:43 Dose: 100 mls/hr Lactobacillus Acidophilus (Bacid -) 1 tab PO DAILY [facility] Last Admin: 06/19/16 09:43 Dose: 1 tab Metoprolol Tartrate (Lopressor Injection -) 5 mg IVPUSH Q4H PRN PRN Reason: HYPERTENSION Last Admin: 06/18/16 06:00 Dose: 5 mg Metoprolol Tartrate (Lopressor -) 12.5 mg PO BID [facility] Last Admin: 06/19/16 09:44 Dose: 12.5 mg Multivitamins/Minerals/Vitamin C (Tab-A-Vit -) 1 tab PO DAILY [facility] Last Admin: 06/19/16 09:44 Dose: 1 tab Ondansetron HCl (Zofran Injection) 4 mg IVPB Q6H PRN PRN Reason: NAUSEA Potassium Phos/Sodium Phos (Phos-Nak Packet -) 1 packet PO DAILY [facility] Last Admin: 06/19/16 09:45 Dose: 1 packet - Objective Vital Signs: Vital Signs Temperature 99.1 F 06/19/16 08:42 Pulse Rate 133 H 06/19/16 08:42 Respiratory Rate 16 06/19/16 08:43 Blood Pressure 110/94 06/19/16 08:42 O2 Sat by Pulse Oximetry (%) 98 06/19/16 08:43 Constitutional: Yes: Calm Cardiovascular: Yes: Pulse Irregular Respiratory: Yes: Other (clear anteriorly, no wheezing) Gastrointestinal: Yes: Soft Edema: No Labs: CBC, BMP 06/19/16 05:35 06/19/16 05:35 INR, PTT INR 1.85 (0.82-1.09) H 06/18/16 06:00 Laboratory Tests 06/18/16 06/19/16 06/19/16 06:00 05:35 05:35 WBC 25.8 H Hgb 9.1 L Hct 28.7 L Plt Count 440 H D INR 1.85 H PTT (Actin FS) 29.6 Sodium 141 Potassium 4.9 BUN 14 Creatinine 0.8 AST 33 ALT 36 D Alkaline Phosphatase 77 D - ....Imaging EKG: Image Reviewed Assessment/Plan Assessment/Plan Perforated uterus, biopsy benign. C/W PID H/o PAF Now with runs of PSVT and rapid AF. S/p Dig load. 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 Anum Mei
[2016-06-19] MEDS ORDERED: DIGOXIN 0.125 MG TABLET (FP) PO SCH (10:00)
--- NOTE | 2016-06-19 10:36 | PN ---
Progress Note, Physician History of Present Illness: PULMONARY WEAK,-RESP DISTRESS - Current Medication List Current Medications: Active Medications Acetaminophen (Tylenol -) 650 mg PO Q6H PRN PRN Reason: FEVER OR PAIN Last Admin: 06/19/16 09:46 Dose: 650 mg Amino Acids (Prostat Sugar-Free Packet -) 30 ml PO BID@0800,1730 [facility] Last Admin: 06/19/16 08:43 Dose: 30 ml Ascorbic Acid (Vitamin C -) 500 mg PO DAILY [facility] Last Admin: 06/19/16 09:44 Dose: 500 mg Clonazepam (Klonopin -) 0.5 mg PO TID [facility] Last Admin: 06/19/16 05:54 Dose: Not Given Clonidine HCl (Catapres Tts Patch -) 0.1 mg TD Q7D@1000 [facility] Cyanocobalamin (Vitamin B12 Injection -) 1,000 mcg IM DAILY [facility] Last Admin: 06/19/16 09:44 Dose: 1,000 mcg Digoxin (Lanoxin -) 0.125 mg PO DAILY [facility] Ferrous Sulfate (Feosol -) 325 mg PO DAILY [facility] Last Admin: 06/19/16 09:44 Dose: 325 mg Folic Acid (Folic Acid -) 1 mg PO DAILY [facility] Last Admin: 06/19/16 09:44 Dose: 1 mg Potassium Chloride/Dextrose/Sod Cl (D5-1/2ns+20 Meq Kcl -) 1,000 mls @ 75 mls/ hr IV ASDIR [facility] Last Admin: 06/18/16 17:52 Dose: Not Given Ceftriaxone Sodium (Rocephin 2gm Ivpb (Pre-Docked)) 100 mls @ 200 mls/hr IVPB DAILY [facility] Last Admin: 06/19/16 09:00 Dose: 200 mls/hr Metronidazole (Flagyl 500mg Premixed Ivpb -) 100 mls @ 100 mls/hr IVPB Q8H-IV [facility] Last Admin: 06/19/16 09:43 Dose: 100 mls/hr Lactobacillus Acidophilus (Bacid -) 1 tab PO DAILY [facility] Last Admin: 06/19/16 09:43 Dose: 1 tab Metoprolol Tartrate (Lopressor Injection -) 5 mg IVPUSH Q4H PRN PRN Reason: HYPERTENSION Last Admin: 06/18/16 06:00 Dose: 5 mg Metoprolol Tartrate (Lopressor -) 25 mg PO BID [facility] Multivitamins/Minerals/Vitamin C (Tab-A-Vit -) 1 tab PO DAILY [facility] Last Admin: 06/19/16 09:44 Dose: 1 tab Ondansetron HCl (Zofran Injection) 4 mg IVPB Q6H PRN PRN Reason: NAUSEA Potassium Phos/Sodium Phos (Phos-Nak Packet -) 1 packet PO DAILY [facility] Last Admin: 06/19/16 09:45 Dose: 1 packet - Objective Vital Signs: Vital Signs Temperature 99.1 F 06/19/16 08:42 Pulse Rate 133 H 06/19/16 08:42 Respiratory Rate 16 06/19/16 08:43 Blood Pressure 110/94 06/19/16 08:42 O2 Sat by Pulse Oximetry (%) 98 06/19/16 08:43 Constitutional: Yes: Calm, Thin Eyes: Yes: WNL HENT: Yes: WNL Neck: Yes: WNL Cardiovascular: Yes: Pulse Irregular, S1, S2 Respiratory: Yes: Diminished Gastrointestinal: Yes: Soft Extremities: Yes: WNL Edema: No Labs: CBC, BMP 06/19/16 05:35 06/19/16 05:35 INR, PTT INR 1.85 (0.82-1.09) H 06/18/16 06:00 Laboratory Tests 06/18/16 07:40 ABG pH 7.48 H ABG pCO2 at Pt Temp 31.5 L D ABG pO2 at Pt Temp 67.2 L D ABG HCO3 23.1 ABG O2 Sat (Measured) 94.8 Problem List - Problems (1) Afib Code(s): I48.91 - UNSPECIFIED ATRIAL FIBRILLATION (2) Anemia Code(s): D64.9 - ANEMIA, UNSPECIFIED (3) Bowel perforation Code(s): K63.1 - PERFORATION OF INTESTINE (NONTRAUMATIC) (4) Dementia Code(s): F03.90 - UNSPECIFIED DEMENTIA WITHOUT BEHAVIORAL DISTURBANCE (5) GI tract abscess Code(s): K63.0 - ABSCESS OF INTESTINE (6) Intra-abdominal abscess Code(s): K65.1 - PERITONEAL ABSCESS (7) Pelvic fluid collection Code(s): R18.8 - OTHER ASCITES (8) Septic shock Code(s): A41.9 - SEPSIS, UNSPECIFIED ORGANISM R65.21 - SEVERE SEPSIS WITH SEPTIC SHOCK (9) Rapid atrial fibrillation Code(s): I48.91 - UNSPECIFIED ATRIAL FIBRILLATION (10) Renal insufficiency Code(s): N28.9 - DISORDER OF KIDNEY AND URETER, UNSPECIFIED (11) Sepsis Code(s): A41.9 - SEPSIS, UNSPECIFIED ORGANISM Qualifiers: Sepsis type: Escherichia coli Qualified Code(s): A41.51 - Sepsis due to Escherichia coli [E. coli] Assessment/Plan Assessment/Plan S/P Exploratory laparotomy/abdominal washout/drainage of intraabdominal abscess/ enterotomy with removal of fecalith and primary repair due to perforated uterus. Additional findings copious : purulent drainage from the uterus, fibrinous exudate throughout small bowel. HTN HPL A-fib previously on Eliquis Dementia Anxiety O2 dig IVF ABX per ID AC when ok with surgery SCDs Pain control Incentive Spirometry PO as tolerated DR SOSA
--- NOTE | 2016-06-19 12:16 | PN ---
Progress Note (short form) - Note Progress Note: Surgery- Dr. Wayne Patient seen and examined this morning. Patient denies abdominal pain. She has not had much PO intake. No BM today, passing gas. Denies fever,chills, nausea, vomiting. Last Vital Signs Temp Pulse Resp BP Pulse Ox 99.1 F 133 H 16 110/94 98 06/19/16 08:42 06/19/16 08:42 06/19/16 08:43 06/19/16 08:42 06/19/16 08:43 CBC, BMP 06/19/16 05:35 06/19/16 05:35 H&H stable Exam: Gen: NAD, resting in bed Abd: Soft, nondistended, nontender with palp, dressing and packing changed on rounds, incision without surrounding erythema, JES with serosanguineous output Problem List - Problems (1) Intra-abdominal abscess Code(s): K65.1 - PERITONEAL ABSCESS (2) Pelvic fluid collection Assessment/Plan: POD#4 s/p s/p exploratory laparotomy, perforated uterus w/ purulent discharge noted, abdominal washout, drainage of intraabdominal abscess, excisional uterine mass bx, enterotomy, removal of fecalith with primary repair Continue clear liquids Continue drain, monitor output Dressing and packing changed on rounds Continue abx per ID H&H continues to be stable, may start heparin for AC May DC [place] from surgical standpoint Code(s): R18.8 - OTHER ASCITES
--- NOTE | 2016-06-19 13:08 | PN ---
Progress Note, Physician Chief Complaint: ASLEEP COMFORTABLE - Current Medication List Current Medications: Active Medications Acetaminophen (Tylenol -) 650 mg PO Q6H PRN PRN Reason: FEVER OR PAIN Last Admin: 06/19/16 09:46 Dose: 650 mg Amino Acids (Prostat Sugar-Free Packet -) 30 ml PO BID@0800,1730 [facility] Last Admin: 06/19/16 08:43 Dose: 30 ml Ascorbic Acid (Vitamin C -) 500 mg PO DAILY [facility] Last Admin: 06/19/16 09:44 Dose: 500 mg Clonazepam (Klonopin -) 0.5 mg PO TID [facility] Last Admin: 06/19/16 05:54 Dose: Not Given Clonidine HCl (Catapres Tts Patch -) 0.1 mg TD Q7D@1000 [facility] Cyanocobalamin (Vitamin B12 Injection -) 1,000 mcg IM DAILY [facility] Last Admin: 06/19/16 09:44 Dose: 1,000 mcg Digoxin (Lanoxin -) 0.125 mg PO DAILY [facility] Ferrous Sulfate (Feosol -) 325 mg PO DAILY [facility] Last Admin: 06/19/16 09:44 Dose: 325 mg Folic Acid (Folic Acid -) 1 mg PO DAILY [facility] Last Admin: 06/19/16 09:44 Dose: 1 mg Potassium Chloride/Dextrose/Sod Cl (D5-1/2ns+20 Meq Kcl -) 1,000 mls @ 75 mls/ hr IV ASDIR [facility] Last Admin: 06/18/16 17:52 Dose: Not Given Ceftriaxone Sodium (Rocephin 2gm Ivpb (Pre-Docked)) 100 mls @ 200 mls/hr IVPB DAILY [facility] Last Admin: 06/19/16 09:00 Dose: 200 mls/hr Metronidazole (Flagyl 500mg Premixed Ivpb -) 100 mls @ 100 mls/hr IVPB Q8H-IV [facility] Last Admin: 06/19/16 09:43 Dose: 100 mls/hr Lactobacillus Acidophilus (Bacid -) 1 tab PO DAILY [facility] Last Admin: 06/19/16 09:43 Dose: 1 tab Metoprolol Tartrate (Lopressor Injection -) 5 mg IVPUSH Q4H PRN PRN Reason: HYPERTENSION Last Admin: 06/18/16 06:00 Dose: 5 mg Metoprolol Tartrate (Lopressor -) 25 mg PO BID [facility] Last Admin: 06/19/16 10:39 Dose: 25 mg Multivitamins/Minerals/Vitamin C (Tab-A-Vit -) 1 tab PO DAILY [facility] Last Admin: 06/19/16 09:44 Dose: 1 tab Ondansetron HCl (Zofran Injection) 4 mg IVPB Q6H PRN PRN Reason: NAUSEA Potassium Phos/Sodium Phos (Phos-Nak Packet -) 1 packet PO DAILY [facility] Last Admin: 06/19/16 09:45 Dose: 1 packet - Objective Vital Signs: Vital Signs Temperature 99.1 F 06/19/16 08:42 Pulse Rate 133 H 06/19/16 08:42 Respiratory Rate 16 06/19/16 08:43 Blood Pressure 110/94 06/19/16 08:42 O2 Sat by Pulse Oximetry (%) 98 06/19/16 08:43 Constitutional: Yes: Mild Distress Eyes: Yes: WNL HENT: Yes: WNL Neck: Yes: WNL Cardiovascular: Yes: Pulse Irregular Respiratory: Yes: WNL Gastrointestinal: Yes: Distention, Tenderness Genitourinary: Yes: Incontinence Musculoskeletal: Yes: Muscle Weakness Extremities: Yes: WNL Edema: No Peripheral Pulses WNL: Yes Integumentary: Yes: WNL Wound/Incision: Yes: Clean/Dry Neurological: Yes: Pre-Existing Deficit ...Motor Strength: LLE, RLE Psychiatric: Yes: Agitated Labs: CBC, BMP 06/19/16 05:35 06/19/16 05:35 INR, PTT INR 1.85 (0.82-1.09) H 06/18/16 06:00 Problem List - Problems (1) Anxiety Code(s): F41.9 - ANXIETY DISORDER, UNSPECIFIED (2) HTN (hypertension) Code(s): I10 - ESSENTIAL (PRIMARY) HYPERTENSION Qualifiers: Hypertension type: essential hypertension Qualified Code(s): I10 - Essential (primary) hypertension (3) Hyperlipidemia Code(s): E78.5 - HYPERLIPIDEMIA, UNSPECIFIED Qualifiers: Hyperlipidemia type: pure hypercholesterolemia Qualified Code(s): E78.0 - Pure hypercholesterolemia (4) Rapid atrial fibrillation Code(s): I48.91 - UNSPECIFIED ATRIAL FIBRILLATION (5) Renal insufficiency Code(s): N28.9 - DISORDER OF KIDNEY AND URETER, UNSPECIFIED (6) Uterine abscess Code(s): N71.9 - INFLAMMATORY DISEASE OF UTERUS, UNSPECIFIED Assessment/Plan DOING WELL ON DIGOXIN, CONTINUE UTERINE ABSCESS/EXPLORATORY LAP POD#4 AWAKE , IMPROVING, AWAIT BIOPSY RESULTS OF UTERUS IV ABX DVT PROPHYLAXIS INCENTIVE SPIROMETRY KLONOPIN TID
[2016-06-19] MEDS: D5-1/2NS+20 MEQ KCL - 1,000 ML IV SCH (16:55)
[2016-06-20] MEDS: METRONIDAZOLE 500 MG PREMIXED 100 ML IVPB SCH ×3 (03:00→22:08)
[2016-06-20] MEDS: clonazePAM 0.5 MG TABLET PO SCH ×3 (04:35→22:06)
[2016-06-20 07:29] LABS: MCH 27.7 pg (25.7-33.7); MCHC 31.5 g/dl (32.0-36.0); MEAN PLT VOLUME 7.5 fl (7.5-11.1); PLATELET COUNT 389 K/MM3 (134-434); RDW 14.1 % (11.6-15.6)
[2016-06-20 07:35] LABS: WHITE BLOOD COUNT 36.7 K/mm3 (4.0-10.0)
--- NOTE | 2016-06-20 07:44 | PN ---
Progress Note, Physician Chief Complaint: "I FEEL TERRIBLE" NOT IN A GOOD MOOD - Current Medication List Current Medications: Active Medications Acetaminophen (Tylenol -) 650 mg PO Q6H PRN PRN Reason: FEVER OR PAIN Last Admin: 06/19/16 22:23 Dose: 650 mg Amino Acids (Prostat Sugar-Free Packet -) 30 ml PO BID@0800,1730 [facility] Last Admin: 06/19/16 16:51 Dose: 30 ml Ascorbic Acid (Vitamin C -) 500 mg PO DAILY [facility] Last Admin: 06/19/16 09:44 Dose: 500 mg Clonazepam (Klonopin -) 0.5 mg PO TID [facility] Last Admin: 06/20/16 06:39 Dose: 0.5 mg Clonidine HCl (Catapres Tts Patch -) 0.1 mg TD Q7D@1000 [facility] Cyanocobalamin (Vitamin B12 Injection -) 1,000 mcg IM DAILY [facility] Last Admin: 06/19/16 09:44 Dose: 1,000 mcg Digoxin (Lanoxin -) 0.125 mg PO DAILY [facility] Ferrous Sulfate (Feosol -) 325 mg PO DAILY [facility] Last Admin: 06/19/16 09:44 Dose: 325 mg Folic Acid (Folic Acid -) 1 mg PO DAILY [facility] Last Admin: 06/19/16 09:44 Dose: 1 mg Potassium Chloride/Dextrose/Sod Cl (D5-1/2ns+20 Meq Kcl -) 1,000 mls @ 75 mls/ hr IV ASDIR [facility] Last Admin: 06/19/16 16:55 Dose: Not Given Ceftriaxone Sodium (Rocephin 2gm Ivpb (Pre-Docked)) 100 mls @ 200 mls/hr IVPB DAILY [facility] Last Admin: 06/19/16 09:00 Dose: 200 mls/hr Metronidazole (Flagyl 500mg Premixed Ivpb -) 100 mls @ 100 mls/hr IVPB Q8H-IV [facility] Last Admin: 06/20/16 03:00 Dose: 100 mls/hr Lactobacillus Acidophilus (Bacid -) 1 tab PO DAILY [facility] Last Admin: 06/19/16 09:43 Dose: 1 tab Metoprolol Tartrate (Lopressor Injection -) 5 mg IVPUSH Q4H PRN PRN Reason: HYPERTENSION Last Admin: 06/18/16 06:00 Dose: 5 mg Metoprolol Tartrate (Lopressor -) 25 mg PO BID [facility] Last Admin: 06/19/16 22:23 Dose: 25 mg Multivitamins/Minerals/Vitamin C (Tab-A-Vit -) 1 tab PO DAILY [facility] Last Admin: 06/19/16 09:44 Dose: 1 tab Ondansetron HCl (Zofran Injection) 4 mg IVPB Q6H PRN PRN Reason: NAUSEA Potassium Phos/Sodium Phos (Phos-Nak Packet -) 1 packet PO DAILY [facility] Last Admin: 06/19/16 09:45 Dose: 1 packet - Objective Vital Signs: Vital Signs Temperature 98.0 F 06/20/16 06:00 Pulse Rate 94 H 06/20/16 06:00 Respiratory Rate 20 06/20/16 06:00 Blood Pressure 133/65 06/20/16 06:00 O2 Sat by Pulse Oximetry (%) 94 L 06/19/16 21:00 Cardiovascular: Yes: S1, S2 Respiratory: Yes: CTA Bilaterally Gastrointestinal: Yes: Normal Bowel Sounds, Soft Edema: No Labs: CBC, BMP 06/20/16 05:35 INR, PTT INR 1.85 (0.82-1.09) H 06/18/16 06:00 Problem List - Problems (1) Anxiety Code(s): F41.9 - ANXIETY DISORDER, UNSPECIFIED (2) HTN (hypertension) Code(s): I10 - ESSENTIAL (PRIMARY) HYPERTENSION Qualifiers: Hypertension type: essential hypertension Qualified Code(s): I10 - Essential (primary) hypertension (3) Hyperlipidemia Code(s): E78.5 - HYPERLIPIDEMIA, UNSPECIFIED Qualifiers: Hyperlipidemia type: pure hypercholesterolemia Qualified Code(s): E78.0 - Pure hypercholesterolemia (4) Rapid atrial fibrillation Code(s): I48.91 - UNSPECIFIED ATRIAL FIBRILLATION (5) Renal insufficiency Code(s): N28.9 - DISORDER OF KIDNEY AND URETER, UNSPECIFIED (6) Uterine abscess Code(s): N71.9 - INFLAMMATORY DISEASE OF UTERUS, UNSPECIFIED Assessment/Plan (1) Anxiety Code(s): F41.9 - ANXIETY DISORDER, UNSPECIFIED (2) HTN (hypertension) Code(s): I10 - ESSENTIAL (PRIMARY) HYPERTENSION Qualifiers: Hypertension type: essential hypertension Qualified Code(s): I10 - Essential (primary) hypertension (3) Hyperlipidemia Code(s): E78.5 - HYPERLIPIDEMIA, UNSPECIFIED Qualifiers: Hyperlipidemia type: pure hypercholesterolemia Qualified Code(s): E78.0 - Pure hypercholesterolemia (4) Rapid atrial fibrillation Code(s): I48.91 - UNSPECIFIED ATRIAL FIBRILLATION (5) Renal insufficiency Code(s): N28.9 - DISORDER OF KIDNEY AND URETER, UNSPECIFIED (6) Uterine abscess Code(s): N71.9 - INFLAMMATORY DISEASE OF UTERUS, UNSPECIFIED Assessment/Plan DOING WELL ON DIGOXIN, CONTINUE UTERINE ABSCESS/EXPLORATORY LAP AWAIT BIOPSY RESULTS OF UTERUS IV ABX APPRECIATE SURG NOTE -> H&H continues to be stable, may start heparin for AC HBG 8 ON AC S/P pRBC INCENTIVE SPIROMETRY KLONOPIN TID [employer] [facility]
[2016-06-20 08:47] LABS: ALBUMIN 1.7 g/dl (3.4-5.0); ALK PHOS 71 U/L (45-117); ANION GAP 11 (8-16); BILIRUBIN,TOTAL 0.4 mg/dL (0.2-1.0); CALCIUM 7.6 mg/dL (8.5-10.1); CO2 23 mmol/L (21-32); CREATININE 0.7 mg/dL (0.55-1.02); GLUCOSE,RANDOM 81 mg/dL (74-106); SGOT/AST 23 U/L (15-37); SGPT/ALT 27 U/L (12-78); TOT PROT 4.8 g/dl (6.4-8.2)
--- NOTE | 2016-06-20 09:44 | PN ---
Progress Note (SOAP) - Subjective Chief Complaint: Pt states feeling better, pain decreased, (+) flatus and BM, no Nausea/vomiting History of Present Illness: s/p explor laparotomy, drainage of abd/pelvic abscess, enterotomy. - Current Medications Current Medications: Active Medications Acetaminophen (Tylenol -) 650 mg PO Q6H PRN PRN Reason: FEVER OR PAIN Last Admin: 06/19/16 22:23 Dose: 650 mg Amino Acids (Prostat Sugar-Free Packet -) 30 ml PO BID@0800,1730 [facility] Last Admin: 06/19/16 16:51 Dose: 30 ml Ascorbic Acid (Vitamin C -) 500 mg PO DAILY [facility] Last Admin: 06/19/16 09:44 Dose: 500 mg Clonazepam (Klonopin -) 0.5 mg PO TID [facility] Last Admin: 06/20/16 06:39 Dose: 0.5 mg Clonidine HCl (Catapres Tts Patch -) 0.1 mg TD Q7D@1000 [facility] Cyanocobalamin (Vitamin B12 Injection -) 1,000 mcg IM DAILY [facility] Last Admin: 06/19/16 09:44 Dose: 1,000 mcg Digoxin (Lanoxin -) 0.125 mg PO DAILY [facility] Ferrous Sulfate (Feosol -) 325 mg PO DAILY [facility] Last Admin: 06/19/16 09:44 Dose: 325 mg Folic Acid (Folic Acid -) 1 mg PO DAILY [facility] Last Admin: 06/19/16 09:44 Dose: 1 mg Potassium Chloride/Dextrose/Sod Cl (D5-1/2ns+20 Meq Kcl -) 1,000 mls @ 75 mls/ hr IV ASDIR [facility] Last Admin: 06/19/16 16:55 Dose: Not Given Ceftriaxone Sodium (Rocephin 2gm Ivpb (Pre-Docked)) 100 mls @ 200 mls/hr IVPB DAILY [facility] Last Admin: 06/19/16 09:00 Dose: 200 mls/hr Metronidazole (Flagyl 500mg Premixed Ivpb -) 100 mls @ 100 mls/hr IVPB Q8H-IV [facility] Last Admin: 06/20/16 03:00 Dose: 100 mls/hr Lactobacillus Acidophilus (Bacid -) 1 tab PO DAILY [facility] Last Admin: 06/19/16 09:43 Dose: 1 tab Metoprolol Tartrate (Lopressor Injection -) 5 mg IVPUSH Q4H PRN PRN Reason: HYPERTENSION Last Admin: 06/18/16 06:00 Dose: 5 mg Metoprolol Tartrate (Lopressor -) 25 mg PO BID [facility] Last Admin: 06/19/16 22:23 Dose: 25 mg Multivitamins/Minerals/Vitamin C (Tab-A-Vit -) 1 tab PO DAILY [facility] Last Admin: 06/19/16 09:44 Dose: 1 tab Ondansetron HCl (Zofran Injection) 4 mg IVPB Q6H PRN PRN Reason: NAUSEA Potassium Phos/Sodium Phos (Phos-Nak Packet -) 1 packet PO DAILY [facility] Last Admin: 06/19/16 09:45 Dose: 1 packet - Objective Vital Signs: Vital Signs Temperature 98.0 F 06/20/16 06:00 Pulse Rate 94 H 06/20/16 06:00 Respiratory Rate 20 06/20/16 06:00 Blood Pressure 133/65 06/20/16 06:00 O2 Sat by Pulse Oximetry (%) 94 L 06/19/16 21:00 Constitutional: Yes: No Distress, Calm Eyes: Yes: Conjunctiva Clear, EOM Intact, Other (conjunct pallor) HENT: Yes: Atraumatic, Normocephalic Neck: Yes: Supple, Trachea Midline Cardiovascular: Yes: Regular Rate and Rhythm, Tachycardia Respiratory: Yes: Regular, Diminished (at bases) Gastrointestinal: Yes: Normal Bowel Sounds, Soft ...Rectal Exam: Yes: Deferred Musculoskeletal: Yes: WNL Extremities: Yes: WNL Peripheral Pulses WNL: Yes Edema: No Integumentary: Yes: WNL, Bruising (IV sites) Wound/Incision: Yes: Clean/Dry, Mahesh Intact, Dressing Dry and Intact, Other ( packing in place, clean, granularing well, JES drain site is clean, JES drain with serosanguinous fluid) Neurological: Yes: Alert, Oriented (to place & time) Psychiatric: Yes: Alert, Oriented Labs Lab Results: CBC, BMP 06/20/16 05:35 06/20/16 05:35 Problem List - Problems (1) Pelvic fluid collection Assessment/Plan: Drained intraop, JES drain in situ. Continue JES per surgery Code(s): R18.8 - OTHER ASCITES (2) PID (acute pelvic inflammatory disease) Assessment/Plan: Uterine mass bx is benign. Clinical picture c/w PID. Continue abx IV, as per ID. Increasing WBC is noted. However, the pt is afebrile. Consider repeat abdom/ pelvic CT scan to assess for abscess re-accumulation. If WBC continues to remain elevated and abscess, plan to consult MANAGER OUTPATIENT Oncology re: possible exp laparotomy and hysterectomy. Code(s): N73.0 - ACUTE PARAMETRITIS AND PELVIC CELLULITIS (3) Anemia Assessment/Plan: No evidence of ongoing bleeding. Likely due to chronic dz and infection. Consider blood transfusion. Code(s): D64.9 - ANEMIA, UNSPECIFIED Qualifiers: Other causes of anemia: chronic disease, other (4) Uterine abscess Code(s): N71.9 - INFLAMMATORY DISEASE OF UTERUS, UNSPECIFIED (5) Leukocytosis Code(s): D72.829 - ELEVATED WHITE BLOOD CELL COUNT, UNSPECIFIED Assessment/Plan DVT prophylaxis: dropping Hct noted. Doubt active bleeding. Consider restarting prophylactic Heparin.
[2016-06-20 09:56] LABS: PLATELET ESTIMATE ADEQUATE (NORMAL)
[2016-06-20] MEDS ORDERED: APIXABAN 2.5 MG TABLET PO SCH (10:00)
--- NOTE | 2016-06-20 10:03 | PN ---
Progress Note, Physician History of Present Illness: PULMONARY ALERT,WEAK.-RESP DISTRESS - Current Medication List Current Medications: Active Medications Acetaminophen (Tylenol -) 650 mg PO Q6H PRN PRN Reason: FEVER OR PAIN Last Admin: 06/19/16 22:23 Dose: 650 mg Amino Acids (Prostat Sugar-Free Packet -) 30 ml PO BID@0800,1730 [facility] Last Admin: 06/19/16 16:51 Dose: 30 ml Ascorbic Acid (Vitamin C -) 500 mg PO DAILY [facility] Last Admin: 06/19/16 09:44 Dose: 500 mg Clonazepam (Klonopin -) 0.5 mg PO TID [facility] Last Admin: 06/20/16 06:39 Dose: 0.5 mg Clonidine HCl (Catapres Tts Patch -) 0.1 mg TD Q7D@1000 [facility] Cyanocobalamin (Vitamin B12 Injection -) 1,000 mcg IM DAILY [facility] Last Admin: 06/19/16 09:44 Dose: 1,000 mcg Digoxin (Lanoxin -) 0.125 mg PO DAILY [facility] Ferrous Sulfate (Feosol -) 325 mg PO DAILY [facility] Last Admin: 06/19/16 09:44 Dose: 325 mg Folic Acid (Folic Acid -) 1 mg PO DAILY [facility] Last Admin: 06/19/16 09:44 Dose: 1 mg Potassium Chloride/Dextrose/Sod Cl (D5-1/2ns+20 Meq Kcl -) 1,000 mls @ 75 mls/ hr IV ASDIR [facility] Last Admin: 06/19/16 16:55 Dose: Not Given Ceftriaxone Sodium (Rocephin 2gm Ivpb (Pre-Docked)) 100 mls @ 200 mls/hr IVPB DAILY [facility] Last Admin: 06/19/16 09:00 Dose: 200 mls/hr Metronidazole (Flagyl 500mg Premixed Ivpb -) 100 mls @ 100 mls/hr IVPB Q8H-IV [facility] Last Admin: 06/20/16 03:00 Dose: 100 mls/hr Lactobacillus Acidophilus (Bacid -) 1 tab PO DAILY [facility] Last Admin: 06/19/16 09:43 Dose: 1 tab Metoprolol Tartrate (Lopressor Injection -) 5 mg IVPUSH Q4H PRN PRN Reason: HYPERTENSION Last Admin: 06/18/16 06:00 Dose: 5 mg Metoprolol Tartrate (Lopressor -) 25 mg PO BID [facility] Last Admin: 06/19/16 22:23 Dose: 25 mg Multivitamins/Minerals/Vitamin C (Tab-A-Vit -) 1 tab PO DAILY [facility] Last Admin: 06/19/16 09:44 Dose: 1 tab Ondansetron HCl (Zofran Injection) 4 mg IVPB Q6H PRN PRN Reason: NAUSEA Potassium Phos/Sodium Phos (Phos-Nak Packet -) 1 packet PO DAILY [facility] Last Admin: 06/19/16 09:45 Dose: 1 packet - Objective Vital Signs: Vital Signs Temperature 98.0 F 06/20/16 06:00 Pulse Rate 94 H 06/20/16 06:00 Respiratory Rate 20 06/20/16 06:00 Blood Pressure 133/65 06/20/16 06:00 O2 Sat by Pulse Oximetry (%) 94 L 06/19/16 21:00 Constitutional: Yes: Calm, Thin Eyes: Yes: WNL HENT: Yes: WNL Neck: Yes: WNL Cardiovascular: Yes: Pulse Irregular, S1, S2 Respiratory: Yes: Diminished Gastrointestinal: Yes: Normal Bowel Sounds, Soft Extremities: Yes: WNL Edema: No Labs: CBC, BMP 06/20/16 05:35 06/20/16 05:35 INR, PTT INR 1.85 (0.82-1.09) H 06/18/16 06:00 Problem List - Problems (1) Afib Code(s): I48.91 - UNSPECIFIED ATRIAL FIBRILLATION (2) Anemia Code(s): D64.9 - ANEMIA, UNSPECIFIED Qualifiers: Other causes of anemia: chronic disease, other (3) Bowel perforation Code(s): K63.1 - PERFORATION OF INTESTINE (NONTRAUMATIC) (4) Dementia Code(s): F03.90 - UNSPECIFIED DEMENTIA WITHOUT BEHAVIORAL DISTURBANCE (5) GI tract abscess Code(s): K63.0 - ABSCESS OF INTESTINE (6) Intra-abdominal abscess Code(s): K65.1 - PERITONEAL ABSCESS (7) Pelvic fluid collection Code(s): R18.8 - OTHER ASCITES (8) Septic shock Code(s): A41.9 - SEPSIS, UNSPECIFIED ORGANISM R65.21 - SEVERE SEPSIS WITH SEPTIC SHOCK (9) Rapid atrial fibrillation Code(s): I48.91 - UNSPECIFIED ATRIAL FIBRILLATION (10) Renal insufficiency Code(s): N28.9 - DISORDER OF KIDNEY AND URETER, UNSPECIFIED (11) Sepsis Code(s): A41.9 - SEPSIS, UNSPECIFIED ORGANISM Qualifiers: Sepsis type: Escherichia coli Qualified Code(s): A41.51 - Sepsis due to Escherichia coli [E. coli] Assessment/Plan Assessment/Plan S/P Exploratory laparotomy/abdominal washout/drainage of intraabdominal abscess/ enterotomy with removal of fecalith and primary repair due to perforated uterus. Additional findings copious : purulent drainage from the uterus, fibrinous exudate throughout small bowel. HTN HPL A-fib previously on Eliquis Dementia Anxiety O2 dig IVF ABX per ID AC when ok with surgery SCDs Pain control Incentive Spirometry PO as tolerated DR SOSA
[2016-06-20] MEDS: FOLIC ACID 1 MG TABLET (FP) PO SCH (11:57)
[2016-06-20] MEDS: METOPROLOL TARTRATE 25 MG TABLET (FP) PO SCH ×2 (11:57→22:07)
[2016-06-20] MEDS: DIGOXIN 0.125 MG TABLET (FP) PO SCH (11:57)
[2016-06-20] MEDS: LACTOBACILLUS ACIDOPHILUS 1 EACH TAB (FP) PO SCH (11:57)
[2016-06-20] MEDS: CYANOCOBALAMIN (VITAMIN B-12) 1000 MCG/1 ML VIAL IM SCH (11:58)
[2016-06-20] MEDS: CEFTRIAXONE 100 ML IVPB SCH (11:58)
--- NOTE | 2016-06-20 13:16 | PN ---
Progress Note (short form) - Note Progress Note: Patient denies nausea/vomiting States she feels better and her pain has improved Was tolerating clears Noted however that her WBC is increasing and is now 36 H/H Vital Signs - 24 hr 06/19/16 06/19/16 06/19/16 14:00 18:00 21:00 Temperature Pulse Rate 96 H 91 H Respiratory 20 20 20 Rate Blood Pressure 111/64 118/59 O2 Sat by Pulse 94 L Oximetry (%) 06/20/16 06/20/16 06/20/16 02:00 06:00 09:00 Temperature 99.0 F 98.0 F 98.7 F Pulse Rate 88 94 H 88 Respiratory 18 20 20 Rate Blood Pressure 109/61 133/65 125/54 O2 Sat by Pulse Oximetry (%) 06/20/16 11:57 Temperature Pulse Rate 122 H Respiratory Rate Blood Pressure O2 Sat by Pulse Oximetry (%) Abd soft, wound clean, no erythema, packing in place- changed by RN JES in place- serosanguinous Due to elevated WBC- repeat CT ordered with IV contrast Discussed with IR- possible abscess vs bowel loop in the pelvis; unable to drain because can't differentiate- would need CT with delayed oral contrast and rectal contrast Also, discussed with Donations Attendant- Dr Mercado consulted Donations Attendant Onc for possible hysterectomy as the perforated uterus is likely the source of the leukocytosis Continue Antibiotics Monitor H/H- if continues to trend down, may require transfusion Would not restart eliquis as the patient may need drainage by IR vs hysterectomy Can start IV heparin Problem List - Problems (1) HTN (hypertension) Code(s): I10 - ESSENTIAL (PRIMARY) HYPERTENSION Qualifiers: Hypertension type: essential hypertension Qualified Code(s): I10 - Essential (primary) hypertension (2) Renal insufficiency Code(s): N28.9 - DISORDER OF KIDNEY AND URETER, UNSPECIFIED (3) Sepsis Code(s): A41.9 - SEPSIS, UNSPECIFIED ORGANISM Qualifiers: Sepsis type: Escherichia coli Qualified Code(s): A41.51 - Sepsis due to Escherichia coli [E. coli] (4) Bowel perforation Code(s): K63.1 - PERFORATION OF INTESTINE (NONTRAUMATIC) (5) Intra-abdominal abscess Code(s): K65.1 - PERITONEAL ABSCESS
--- NOTE | 2016-06-20 14:14 | PN ---
Progress Note, Physician History of Present Illness: Awake No c/o abdominal pain No fever WBC remains elevated - Current Medication List Current Medications: Active Medications Acetaminophen (Tylenol -) 650 mg PO Q6H PRN PRN Reason: FEVER OR PAIN Last Admin: 06/19/16 22:23 Dose: 650 mg Amino Acids (Prostat Sugar-Free Packet -) 30 ml PO BID@0800,1730 [facility] Last Admin: 06/19/16 16:51 Dose: 30 ml Ascorbic Acid (Vitamin C -) 500 mg PO DAILY [facility] Last Admin: 06/19/16 09:44 Dose: 500 mg Clonazepam (Klonopin -) 0.5 mg PO TID [facility] Last Admin: 06/20/16 06:39 Dose: 0.5 mg Clonidine HCl (Catapres Tts Patch -) 0.1 mg TD Q7D@1000 [facility] Cyanocobalamin (Vitamin B12 Injection -) 1,000 mcg IM DAILY [facility] Last Admin: 06/20/16 11:58 Dose: 1,000 mcg Digoxin (Lanoxin -) 0.125 mg PO DAILY [facility] Last Admin: 06/20/16 11:57 Dose: 0.125 mg Ferrous Sulfate (Feosol -) 325 mg PO DAILY [facility] Last Admin: 06/19/16 09:44 Dose: 325 mg Folic Acid (Folic Acid -) 1 mg PO DAILY [facility] Last Admin: 06/20/16 11:57 Dose: 1 mg Potassium Chloride/Dextrose/Sod Cl (D5-1/2ns+20 Meq Kcl -) 1,000 mls @ 75 mls/ hr IV ASDIR [facility] Last Admin: 06/19/16 16:55 Dose: Not Given Ceftriaxone Sodium (Rocephin 2gm Ivpb (Pre-Docked)) 100 mls @ 200 mls/hr IVPB DAILY [facility] Last Admin: 06/20/16 11:58 Dose: 200 mls/hr Metronidazole (Flagyl 500mg Premixed Ivpb -) 100 mls @ 100 mls/hr IVPB Q8H-IV [facility] Last Admin: 06/20/16 11:58 Dose: 100 mls/hr Lactobacillus Acidophilus (Bacid -) 1 tab PO DAILY [facility] Last Admin: 06/20/16 11:57 Dose: 1 tab Metoprolol Tartrate (Lopressor Injection -) 5 mg IVPUSH Q4H PRN PRN Reason: HYPERTENSION Last Admin: 06/18/16 06:00 Dose: 5 mg Metoprolol Tartrate (Lopressor -) 25 mg PO BID [facility] Last Admin: 06/20/16 11:57 Dose: 25 mg Multivitamins/Minerals/Vitamin C (Tab-A-Vit -) 1 tab PO DAILY [facility] Last Admin: 06/19/16 09:44 Dose: 1 tab Ondansetron HCl (Zofran Injection) 4 mg IVPB Q6H PRN PRN Reason: NAUSEA Potassium Phos/Sodium Phos (Phos-Nak Packet -) 1 packet PO DAILY [facility] Last Admin: 06/19/16 09:45 Dose: 1 packet - Objective Vital Signs: Vital Signs Temperature 99.7 F H 06/20/16 12:00 Pulse Rate 122 H 06/20/16 11:57 Respiratory Rate 20 06/20/16 09:00 Blood Pressure 125/54 06/20/16 09:00 O2 Sat by Pulse Oximetry (%) 94 L 06/19/16 21:00 Constitutional: Yes: No Distress Cardiovascular: Yes: Regular Rate and Rhythm, S1, S2 Respiratory: Yes: CTA Bilaterally Gastrointestinal: Yes: Normal Bowel Sounds, Soft, Tenderness, Other (+ incisional tenderness) Edema: No Labs: CBC, BMP 06/20/16 05:35 06/20/16 05:35 INR, PTT INR 1.85 (0.82-1.09) H 06/18/16 06:00 Assessment/Plan Pelvic abscess S/P perforated uterus Leukocytosis PCN allergy Continue empiric ceftriaxone/ flagyl
[2016-06-20] MEDS ORDERED: FUROSEMIDE 40 MG/4 ML INJECTABLE VIAL IVPUSH ONE ×2 (14:26→15:15)
--- NOTE | 2016-06-20 14:28 | PN ---
Progress Note, Physician History of Present Illness: Pt is an 80yr old woman with PMHx of HTN, HLD, a-fib (on Eliquis), dementia and anxiety. Pt was discharged on 05/31 to [facility] after admission for cellulitis. Pt now presents to the ER with CC of abdominal pain. In the ER pt with BUN/Cr 28/1.1 and WBC 17.4. Prelim read of CT of ab/pel concerning for possible acute process. Pt admitted to the ICU for further management. Upon assessment pt denies chest pain/sob/stomachache/headache/diarrhea. 115/62, HR 79 (sinus on tele) low 90s on NC RR 20s. - Past Medical History - Current Medication List Current Medications: Active Medications Acetaminophen (Tylenol -) 650 mg PO Q6H PRN PRN Reason: FEVER OR PAIN Last Admin: 06/19/16 22:23 Dose: 650 mg Amino Acids (Prostat Sugar-Free Packet -) 30 ml PO BID@0800,1730 [facility] Last Admin: 06/19/16 16:51 Dose: 30 ml Ascorbic Acid (Vitamin C -) 500 mg PO DAILY [facility] Last Admin: 06/19/16 09:44 Dose: 500 mg Clonazepam (Klonopin -) 0.5 mg PO TID [facility] Last Admin: 06/20/16 06:39 Dose: 0.5 mg Clonidine HCl (Catapres Tts Patch -) 0.1 mg TD Q7D@1000 [facility] Cyanocobalamin (Vitamin B12 Injection -) 1,000 mcg IM DAILY [facility] Last Admin: 06/20/16 11:58 Dose: 1,000 mcg Digoxin (Lanoxin -) 0.125 mg PO DAILY [facility] Last Admin: 06/20/16 11:57 Dose: 0.125 mg Enoxaparin Sodium (Lovenox -) 60 mg SQ BID [facility] Ferrous Sulfate (Feosol -) 325 mg PO DAILY [facility] Last Admin: 06/19/16 09:44 Dose: 325 mg Folic Acid (Folic Acid -) 1 mg PO DAILY [facility] Last Admin: 06/20/16 11:57 Dose: 1 mg Potassium Chloride/Dextrose/Sod Cl (D5-1/2ns+20 Meq Kcl -) 1,000 mls @ 75 mls/ hr IV ASDIR [facility] Last Admin: 06/19/16 16:55 Dose: Not Given Ceftriaxone Sodium (Rocephin 2gm Ivpb (Pre-Docked)) 100 mls @ 200 mls/hr IVPB DAILY [facility] Last Admin: 06/20/16 11:58 Dose: 200 mls/hr Metronidazole (Flagyl 500mg Premixed Ivpb -) 100 mls @ 100 mls/hr IVPB Q8H-IV [facility] Last Admin: 06/20/16 11:58 Dose: 100 mls/hr Lactobacillus Acidophilus (Bacid -) 1 tab PO DAILY [facility] Last Admin: 06/20/16 11:57 Dose: 1 tab Metoprolol Tartrate (Lopressor Injection -) 5 mg IVPUSH Q4H PRN PRN Reason: HYPERTENSION Last Admin: 06/18/16 06:00 Dose: 5 mg Metoprolol Tartrate (Lopressor -) 25 mg PO BID [facility] Last Admin: 06/20/16 11:57 Dose: 25 mg Multivitamins/Minerals/Vitamin C (Tab-A-Vit -) 1 tab PO DAILY [facility] Last Admin: 06/19/16 09:44 Dose: 1 tab Ondansetron HCl (Zofran Injection) 4 mg IVPB Q6H PRN PRN Reason: NAUSEA Potassium Phos/Sodium Phos (Phos-Nak Packet -) 1 packet PO DAILY [facility] Last Admin: 06/19/16 09:45 Dose: 1 packet - Objective Vital Signs: Vital Signs Temperature 99.7 F H 06/20/16 12:00 Pulse Rate 122 H 06/20/16 11:57 Respiratory Rate 20 06/20/16 09:00 Blood Pressure 125/54 06/20/16 09:00 O2 Sat by Pulse Oximetry (%) 94 L 06/19/16 21:00 Eyes: Yes: WNL, Conjunctiva Clear, EOM Intact HENT: Yes: WNL, Atraumatic, Normocephalic Neck: Yes: WNL, Supple, Trachea Midline Cardiovascular: Yes: Pulse Irregular, S1, S2 Respiratory: Yes: WNL, Regular, CTA Bilaterally Gastrointestinal: Yes: WNL, Normal Bowel Sounds Genitourinary: Yes: WNL Musculoskeletal: Yes: WNL Extremities: Yes: WNL Edema: No Integumentary: Yes: WNL Neurological: Yes: WNL, Alert, Oriented ...Motor Strength: WNL Psychiatric: Yes: WNL Labs: CBC, BMP 06/20/16 05:35 02/13/17 05:35 INR, PTT INR 1.85 (0.82-1.09) H 06/18/16 06:00 Problem List - Problems (1) Bowel perforation Code(s): K63.1 - PERFORATION OF INTESTINE (NONTRAUMATIC) (2) Diverticulitis of colon with perforation Code(s): K57.20 - DVTRCLI OF LG INT W PERFORATION AND ABSCESS W/O BLEEDING (3) Intra-abdominal abscess Code(s): K65.1 - PERITONEAL ABSCESS (4) Anxiety Code(s): F41.9 - ANXIETY DISORDER, UNSPECIFIED (5) Thibodeaux's cyst of knee Code(s): M71.20 - SYNOVIAL CYST OF POPLITEAL SPACE [THIBODEAUX], UNSPECIFIED KNEE Qualifiers: Laterality: left Qualified Code(s): M71.22 - Synovial cyst of popliteal space [Thibodeaux], left knee (6) Cellulitis Code(s): L03.90 - CELLULITIS, UNSPECIFIED (7) Contusion of foot Code(s): S90.30XA - CONTUSION OF UNSPECIFIED FOOT, INITIAL ENCOUNTER (8) Cystitis Code(s): N30.90 - CYSTITIS, UNSPECIFIED WITHOUT HEMATURIA (9) Dehydration Code(s): E86.0 - DEHYDRATION (10) Fever Code(s): R50.9 - FEVER, UNSPECIFIED (11) Gait difficulty Code(s): R26.9 - UNSPECIFIED ABNORMALITIES OF GAIT AND MOBILITY (12) Generalized weakness Code(s): R53.1 - WEAKNESS (13) HTN (hypertension) Code(s): I10 - ESSENTIAL (PRIMARY) HYPERTENSION Qualifiers: Hypertension type: essential hypertension Qualified Code(s): I10 - Essential (primary) hypertension (14) Hyperlipidemia Code(s): E78.5 - HYPERLIPIDEMIA, UNSPECIFIED Qualifiers: Hyperlipidemia type: pure hypercholesterolemia Qualified Code(s): E78.0 - Pure hypercholesterolemia (15) Pain Code(s): R52 - PAIN, UNSPECIFIED (16) Rapid atrial fibrillation Code(s): I48.91 - UNSPECIFIED ATRIAL FIBRILLATION (17) Renal insufficiency Code(s): N28.9 - DISORDER OF KIDNEY AND URETER, UNSPECIFIED (18) Sepsis Code(s): A41.9 - SEPSIS, UNSPECIFIED ORGANISM Qualifiers: Sepsis type: Escherichia coli Qualified Code(s): A41.51 - Sepsis due to Escherichia coli [E. coli] (19) UTI (urinary tract infection) Code(s): N39.0 - URINARY TRACT INFECTION, SITE NOT SPECIFIED Assessment/Plan Perforated uterus, biopsy benign. C/W PID H/o PAF Now with runs of PSVT and rapid AF. S/p Dig load. REC: Start Digoxin PO Lopressor 25mg PO BID (with hold parameters) Resume AC when safe from BONING ROOM WORKER/surgical standpoint.
[2016-06-20] MEDS: ENOXAPARIN NA (PORCINE) 60 MG/0.6 ML DISP.SYRIN SQ SCH (22:06)
[2016-06-20] MEDS: MULTIVITAMINS (DAILY MVI) TABLET (FP) PO SCH (22:07)
[2016-06-20] MEDS: ASCORBIC ACID 500 MG TABLET (FP) PO SCH (22:07)
[2016-06-20] MEDS: FERROUS SO4 325 MG TABLET (FP) PO SCH (22:08)
[2016-06-20] MEDS: AMINO ACIDS/PROTEIN HYDROLYS SUGAR-FREE 30 ML PACKET PO SCH (22:08)
[2016-06-20] MEDS: NAPH,MB-DB/K PH,MBDB POWDER PACKET PO SCH (22:08)
[2016-06-21] MEDS ORDERED: FUROSEMIDE 40 MG/4 ML INJECTABLE VIAL ONE (02:57)
[2016-06-21] MEDS: METRONIDAZOLE 500 MG PREMIXED 100 ML IVPB SCH ×3 (03:21→18:44)
[2016-06-21] MEDS: clonazePAM 0.5 MG TABLET PO SCH ×3 (06:25→22:47)
[2016-06-21 08:21] LABS: MCH 27.7 pg (25.7-33.7); MCHC 32.1 g/dl (32.0-36.0); MEAN CELL VOLUME 86.3 fl (80-96); MEAN PLT VOLUME 7.3 fl (7.5-11.1); PLATELET COUNT 417 K/MM3 (134-434); RDW 14.7 % (11.6-15.6)
[2016-06-21] MEDS: CEFTRIAXONE 100 ML IVPB SCH (09:12)
--- NOTE | 2016-06-21 09:38 | PN ---
[id number] with nursing. Patient denies abdominal pain. She is NPO, denies nausea or vomiting, denies fever/chills. Last Vital Signs Temp Pulse Resp BP Pulse Ox 97.6 F 108 H 20 103/56 95 06/21/16 02:00 06/21/16 05:00 06/21/16 05:00 06/21/16 05:00 06/20/16 21:00 CBC, BMP 06/21/16 05:45 06/20/16 05:35 Exam: Gen: NAD, resting in bed Abd: soft, nondistended, nontender, midline incision healing well, packing and dressing replaced on rounds, without drainage or erythema, JES drain bulb full with light brown purulent drainage <Angella Mcghee - Last Filed: 06/21/16 09:44> - Note Progress Note: Agree Likely recurrent abscess/collection in the pelvis from the perforated necrotic uterus Management is either hysterectomy by Contract Negotiation Manager or drainage by IR Because the uterus is the source, General Surgery does not have much more to offer Called by RN- told that Contract Negotiation Manager Onc who was consulted for a possible hysterectomy for source control felt the patient was too high risk Repeat CT with PO and rectal contrast ordered IR reconsulted for possible drainage <Jace Wayne - Last Filed: 06/21/16 13:25> Problem List - Problems (1) Intra-abdominal abscess Code(s): K65.1 - PERITONEAL ABSCESS (2) Pelvic fluid collection Assessment/Plan: POD#6 s/p s/p exploratory laparotomy, perforated uterus w/ purulent discharge noted, abdominal washout, excisional uterine mass bx, enterotomy, removal of fecalith with primary repair Patient discussed with Dr. Wayne uterine bx benign Dr. Mercado to discuss possibility of hysterectomy with surgical oncology If hysterectomy is not possible, will order CT and proceed with possible IR drainage Continue NPO- IV fluids COntinue JES drain, monitor output Continue abx H&H improved today 9.7/30.1 from 8.1/25.8 yesterday- Rec switch Lovenox to heparin Code(s): R18.8 - OTHER ASCITES <Angella Mcghee - Last Filed: 06/21/16 09:44> - Problems (1) HTN (hypertension) Code(s): I10 - ESSENTIAL (PRIMARY) HYPERTENSION Qualifiers: Hypertension type: essential hypertension Qualified Code(s): I10 - Essential (primary) hypertension (2) Renal insufficiency Code(s): N28.9 - DISORDER OF KIDNEY AND URETER, UNSPECIFIED (3) Sepsis Code(s): A41.9 - SEPSIS, UNSPECIFIED ORGANISM Qualifiers: Sepsis type: Escherichia coli Qualified Code(s): A41.51 - Sepsis due to Escherichia coli [E. coli] (4) Bowel perforation Code(s): K63.1 - PERFORATION OF INTESTINE (NONTRAUMATIC) (5) Intra-abdominal abscess Code(s): K65.1 - PERITONEAL ABSCESS <Jace Wayne - Last Filed: 06/21/16 13:25>
[2016-06-21] MEDS: AMINO ACIDS/PROTEIN HYDROLYS SUGAR-FREE 30 ML PACKET PO SCH ×2 (09:51→18:44)
[2016-06-21] MEDS: FOLIC ACID 1 MG TABLET (FP) PO SCH (12:18)
[2016-06-21] MEDS: ASCORBIC ACID 500 MG TABLET (FP) PO SCH (12:18)
[2016-06-21] MEDS: MULTIVITAMINS (DAILY MVI) TABLET (FP) PO SCH (12:18)
[2016-06-21] MEDS: METOPROLOL TARTRATE 25 MG TABLET (FP) PO SCH ×2 (12:18→22:47)
[2016-06-21] MEDS: FERROUS SO4 325 MG TABLET (FP) PO SCH (12:18)
[2016-06-21] MEDS: LACTOBACILLUS ACIDOPHILUS 1 EACH TAB (FP) PO SCH (12:18)
[2016-06-21] MEDS: DIGOXIN 0.125 MG TABLET (FP) PO SCH (12:19)
[2016-06-21] MEDS: CYANOCOBALAMIN (VITAMIN B-12) 1000 MCG/1 ML VIAL IM SCH (12:19)
[2016-06-21] MEDS: NAPH,MB-DB/K PH,MBDB POWDER PACKET PO SCH (12:19)
[2016-06-21] MEDS: ENOXAPARIN NA (PORCINE) 60 MG/0.6 ML DISP.SYRIN SQ SCH ×2 (13:00→22:47)
--- NOTE | 2016-06-21 13:34 | PN ---
Progress Note, Physician History of Present Illness: 80yr old white woman presented to ED via EMS from [facility] with c/ o abd pain. According to patient son, patient has been having abd pain all day starting at 6pm, pain progressed at 1015pm- patient given oxycontin with no relief- patient sent to this ED for evaluation. Son inform real estate underwriter that patient recently admitted May 27 for "blood infection" and d/c to [facility] for rehab but has not gotten out of bed per son. Patient also has not had a BM today. Denies any other complaints at this time. - Current Medication List Current Medications: Active Medications Acetaminophen (Tylenol -) 650 mg PO Q6H PRN PRN Reason: FEVER OR PAIN Last Admin: 06/19/16 22:23 Dose: 650 mg Amino Acids (Prostat Sugar-Free Packet -) 30 ml PO BID@0800,1730 [facility] Last Admin: 06/21/16 09:51 Dose: Not Given Ascorbic Acid (Vitamin C -) 500 mg PO DAILY [facility] Last Admin: 06/21/16 12:18 Dose: 500 mg Clonazepam (Klonopin -) 0.5 mg PO TID [facility] Last Admin: 06/21/16 06:25 Dose: 0.5 mg Clonidine HCl (Catapres Tts Patch -) 0.1 mg TD Q7D@1000 [facility] Cyanocobalamin (Vitamin B12 Injection -) 1,000 mcg IM DAILY [facility] Last Admin: 06/21/16 12:19 Dose: 1,000 mcg Digoxin (Lanoxin -) 0.125 mg PO DAILY [facility] Last Admin: 06/21/16 12:19 Dose: 0.125 mg Enoxaparin Sodium (Lovenox -) 60 mg SQ BID [facility] Last Admin: 06/20/16 22:06 Dose: 60 mg Ferrous Sulfate (Feosol -) 325 mg PO DAILY [facility] Last Admin: 06/21/16 12:18 Dose: 325 mg Folic Acid (Folic Acid -) 1 mg PO DAILY [facility] Last Admin: 06/21/16 12:18 Dose: 1 mg Ceftriaxone Sodium (Rocephin 2gm Ivpb (Pre-Docked)) 100 mls @ 200 mls/hr IVPB DAILY [facility] Last Admin: 06/21/16 09:12 Dose: 200 mls/hr Metronidazole (Flagyl 500mg Premixed Ivpb -) 100 mls @ 100 mls/hr IVPB Q8H-IV [facility] Last Admin: 06/21/16 09:51 Dose: 100 mls/hr Amino Acids (Clinimix -) 1,000 mls @ 42 mls/hr IV ASDIR [facility] Lactobacillus Acidophilus (Bacid -) 1 tab PO DAILY [facility] Last Admin: 06/21/16 12:18 Dose: 1 tab Metoprolol Tartrate (Lopressor Injection -) 5 mg IVPUSH Q4H PRN PRN Reason: HYPERTENSION Last Admin: 06/18/16 06:00 Dose: 5 mg Metoprolol Tartrate (Lopressor -) 25 mg PO BID [facility] Last Admin: 06/21/16 12:18 Dose: 25 mg Multivitamins/Minerals/Vitamin C (Tab-A-Vit -) 1 tab PO DAILY [facility] Last Admin: 06/21/16 12:18 Dose: 1 tab Ondansetron HCl (Zofran Injection) 4 mg IVPB Q6H PRN PRN Reason: NAUSEA Potassium Phos/Sodium Phos (Phos-Nak Packet -) 1 packet PO DAILY [facility] Last Admin: 06/21/16 12:19 Dose: 1 packet - Objective Vital Signs: Vital Signs Temperature 97.6 F 06/21/16 02:00 Pulse Rate 112 H 06/21/16 12:19 Respiratory Rate 14 06/21/16 09:00 Blood Pressure 112/60 06/21/16 09:00 O2 Sat by Pulse Oximetry (%) 95 06/21/16 10:40 Labs: CBC, BMP 06/21/16 05:45 06/20/16 05:35 INR, PTT INR 1.85 (0.82-1.09) H 06/18/16 06:00 Problem List - Problems (1) Afib Assessment/Plan: Pt was on metoprolol at home; may use IV metoprolol for HR and BP until able to take PO. On apixaban at home; restart as soon as cleared by surgeon. F/u digoxin level (keep 0.5-1.0). Code(s): I48.91 - UNSPECIFIED ATRIAL FIBRILLATION (2) Intra-abdominal abscess Assessment/Plan: As discussed with Dr. Cordon (Cracker Sprayer), pt is at high risk for Code(s): K65.1 - PERITONEAL ABSCESS (3) Anxiety Code(s): F41.9 - ANXIETY DISORDER, UNSPECIFIED (4) HTN (hypertension) Assessment/Plan: On metoprolol and clonidine at home; last dose of clonidine 2 days ago, per pt and chart. Risk of rebound hypertension when abruptly stopping clonidine (exacerbated when also on metoprolol). Will restart metoprolol IV and clonidine patch (though ideally should overlap patch 1-2 days with oral agent) until pt is able to take PO. (May have to remove clonidine patch for procedures, eg MRI, because of aluminum , etc.). Change to PO metoprolol when able to. Code(s): I10 - ESSENTIAL (PRIMARY) HYPERTENSION Qualifiers: Hypertension type: essential hypertension Qualified Code(s): I10 - Essential (primary) hypertension (5) Sepsis Assessment/Plan: on antibiotics; followed by ID. Maintain hydration. LVEF WNL by ECHO. Code(s): A41.9 - SEPSIS, UNSPECIFIED ORGANISM Qualifiers: Sepsis type: Escherichia coli Qualified Code(s): A41.51 - Sepsis due to Escherichia coli [E. coli] (6) Anemia Code(s): D64.9 - ANEMIA, UNSPECIFIED Qualifiers: Other causes of anemia: chronic disease, other (7) GI tract abscess Assessment/Plan: On antibiotics; Pain managment. FLuids; f/u electrolytes, Hb. Surgical f/u. Code(s): K63.0 - ABSCESS OF INTESTINE
--- NOTE | 2016-06-21 14:33 | PN ---
Progress Note (short form) - Note Progress Note: Denies CP or SOB. Denies abdominal pain. No acute events overnight. Intake & Output 06/18/16 06/19/16 06/20/16 06/21/16 23:59 23:59 23:59 23:59 Intake Total 1000 2150 100 450 Output Total 440 565 1046 1400 Balance 340 1540 -1260 -950 Weight 135 lb 6.4 oz Last Vital Signs Temp Pulse Resp BP Pulse Ox 97.6 F 112 H 14 112/60 95 06/21/16 02:00 06/21/16 12:19 06/21/16 09:00 06/21/16 09:00 06/21/16 10:40 Active Medications Acetaminophen (Tylenol -) 650 mg PO Q6H PRN PRN Reason: FEVER OR PAIN Last Admin: 06/19/16 22:23 Dose: 650 mg Amino Acids (Prostat Sugar-Free Packet -) 30 ml PO BID@0800,1730 [facility] Last Admin: 06/21/16 09:51 Dose: Not Given Ascorbic Acid (Vitamin C -) 500 mg PO DAILY [facility] Last Admin: 06/21/16 12:18 Dose: 500 mg Clonazepam (Klonopin -) 0.5 mg PO TID [facility] Last Admin: 06/21/16 06:25 Dose: 0.5 mg Clonidine HCl (Catapres Tts Patch -) 0.1 mg TD Q7D@1000 [facility] Cyanocobalamin (Vitamin B12 Injection -) 1,000 mcg IM DAILY [facility] Last Admin: 06/21/16 12:19 Dose: 1,000 mcg Digoxin (Lanoxin -) 0.125 mg PO DAILY [facility] Last Admin: 06/21/16 12:19 Dose: 0.125 mg Enoxaparin Sodium (Lovenox -) 60 mg SQ BID [facility] Last Admin: 06/21/16 13:00 Dose: Not Given Ferrous Sulfate (Feosol -) 325 mg PO DAILY [facility] Last Admin: 06/21/16 12:18 Dose: 325 mg Folic Acid (Folic Acid -) 1 mg PO DAILY [facility] Last Admin: 06/21/16 12:18 Dose: 1 mg Ceftriaxone Sodium (Rocephin 2gm Ivpb (Pre-Docked)) 100 mls @ 200 mls/hr IVPB DAILY [facility] Last Admin: 06/21/16 09:12 Dose: 200 mls/hr Metronidazole (Flagyl 500mg Premixed Ivpb -) 100 mls @ 100 mls/hr IVPB Q8H-IV [facility] Last Admin: 06/21/16 09:51 Dose: 100 mls/hr Amino Acids (Clinimix -) 1,000 mls @ 42 mls/hr IV ASDIR [facility] Lactobacillus Acidophilus (Bacid -) 1 tab PO DAILY [facility] Last Admin: 06/21/16 12:18 Dose: 1 tab Metoprolol Tartrate (Lopressor Injection -) 5 mg IVPUSH Q4H PRN PRN Reason: HYPERTENSION Last Admin: 06/18/16 06:00 Dose: 5 mg Metoprolol Tartrate (Lopressor -) 25 mg PO BID [facility] Last Admin: 06/21/16 12:18 Dose: 25 mg Multivitamins/Minerals/Vitamin C (Tab-A-Vit -) 1 tab PO DAILY [facility] Last Admin: 06/21/16 12:18 Dose: 1 tab Ondansetron HCl (Zofran Injection) 4 mg IVPB Q6H PRN PRN Reason: NAUSEA Potassium Phos/Sodium Phos (Phos-Nak Packet -) 1 packet PO DAILY [facility] Last Admin: 06/21/16 12:19 Dose: 1 packet Constitutional: Yes: Awake and alert Eyes: Yes: (-) Pallor HENT: Yes: WNL Cardiovascular: Yes: S1, S2 Respiratory: Yes: Few scattered rhonchi No: wheezes Gastrointestinal: Yes: (+) Bowel Sounds ...Rectal Exam: Yes: Deferred Musculoskeletal: Yes: WNL Edema: Yes Edema: LUE: Trace Peripheral Pulses WNL: Yes (+2 bilateral pedal pulses) Integumentary: Yes: WNL Neurological: Yes: Alert Psychiatric: Yes: WNL Labs: Laboratory Results - last 24 hr 06/20/16 06/21/16 06/21/16 16:50 05:45 05:57 WBC 34.0 H* RBC 3.48 L Hgb 9.7 L D Hct 30.1 L D MCV 86.3 MCHC 32.1 RDW 14.7 Plt Count 417 MPV 7.3 L Neutrophils % 89.0 H Lymphocytes % 6.0 L D Monocytes % 4.0 D Band Neutrophils 1.0 D Differential Comment Manual diff done POC Glucometer 89 Blood Type A NEGATIVE Antibody Screen Positive H Crossmatch See Detail Assessment/Plan S/P Exploratory laparotomy/abdominal washout/drainage of intraabdominal abscess/ enterotomy with removal of fecalith and primary repair due to perforated uterus. Additional findings: copious purulent drainage from the uterus, fibrinous exudate throughout small bowel. HTN HPL A-fib previously on Eliquis Dementia Anxiety O2 to maintain O2 saturation ABX per ID AC on hold due to need for possible additional intervention SCDs Pain control Incentive Spirometry Dr Ybarra
[2016-06-21] MEDS: AMINO ACIDS 4.25%/D5W 1,000 ML IV SCH (14:36)
[2016-06-21 15:05] LABS: BASOPHIL 0.2 % (0-2.0); EOSINOPHIL 0.2 % (0-4.5); MCH 27.3 pg (25.7-33.7); MCHC 31.8 g/dl (32.0-36.0); MEAN CELL VOLUME 85.8 fl (80-96); NEUTROPHILS 87.9 % (42.8-82.8); PLATELET COUNT 470 K/MM3 (134-434); RDW 14.9 % (11.6-15.6)
[2016-06-21 15:15] LABS: WHITE BLOOD COUNT 31.5 K/mm3 (4.0-10.0)
--- NOTE | 2016-06-21 16:31 | PN ---
Progress Note, Physician Chief Complaint: AWAKE CONFUSED NPO - Current Medication List Current Medications: Active Medications Acetaminophen (Tylenol -) 650 mg PO Q6H PRN PRN Reason: FEVER OR PAIN Last Admin: 06/19/16 22:23 Dose: 650 mg Amino Acids (Prostat Sugar-Free Packet -) 30 ml PO BID@0800,1730 [facility] Last Admin: 06/21/16 09:51 Dose: Not Given Ascorbic Acid (Vitamin C -) 500 mg PO DAILY [facility] Last Admin: 06/21/16 12:18 Dose: 500 mg Clonazepam (Klonopin -) 0.5 mg PO TID [facility] Last Admin: 06/21/16 15:11 Dose: 0.5 mg Clonidine HCl (Catapres Tts Patch -) 0.1 mg TD Q7D@1000 [facility] Cyanocobalamin (Vitamin B12 Injection -) 1,000 mcg IM DAILY [facility] Last Admin: 06/21/16 12:19 Dose: 1,000 mcg Digoxin (Lanoxin -) 0.125 mg PO DAILY [facility] Last Admin: 06/21/16 12:19 Dose: 0.125 mg Enoxaparin Sodium (Lovenox -) 60 mg SQ BID [facility] Last Admin: 06/21/16 13:00 Dose: Not Given Ferrous Sulfate (Feosol -) 325 mg PO DAILY [facility] Last Admin: 06/21/16 12:18 Dose: 325 mg Folic Acid (Folic Acid -) 1 mg PO DAILY [facility] Last Admin: 06/21/16 12:18 Dose: 1 mg Ceftriaxone Sodium (Rocephin 2gm Ivpb (Pre-Docked)) 100 mls @ 200 mls/hr IVPB DAILY [facility] Last Admin: 06/21/16 09:12 Dose: 200 mls/hr Metronidazole (Flagyl 500mg Premixed Ivpb -) 100 mls @ 100 mls/hr IVPB Q8H-IV [facility] Last Admin: 06/21/16 09:51 Dose: 100 mls/hr Amino Acids (Clinimix -) 1,000 mls @ 42 mls/hr IV ASDIR [facility] Last Admin: 06/21/16 14:36 Dose: 42 mls/hr Lactobacillus Acidophilus (Bacid -) 1 tab PO DAILY [facility] Last Admin: 06/21/16 12:18 Dose: 1 tab Metoprolol Tartrate (Lopressor Injection -) 5 mg IVPUSH Q4H PRN PRN Reason: HYPERTENSION Last Admin: 06/18/16 06:00 Dose: 5 mg Metoprolol Tartrate (Lopressor -) 25 mg PO BID [facility] Last Admin: 06/21/16 12:18 Dose: 25 mg Multivitamins/Minerals/Vitamin C (Tab-A-Vit -) 1 tab PO DAILY [facility] Last Admin: 06/21/16 12:18 Dose: 1 tab Ondansetron HCl (Zofran Injection) 4 mg IVPB Q6H PRN PRN Reason: NAUSEA Potassium Phos/Sodium Phos (Phos-Nak Packet -) 1 packet PO DAILY [facility] Last Admin: 06/21/16 12:19 Dose: 1 packet - Objective Vital Signs: Vital Signs Temperature 97.9 F 06/21/16 14:26 Pulse Rate 94 H 06/21/16 14:26 Respiratory Rate 20 06/21/16 14:26 Blood Pressure 126/70 06/21/16 14:26 O2 Sat by Pulse Oximetry (%) 95 06/21/16 10:40 Constitutional: Yes: Mild Distress Eyes: Yes: WNL HENT: Yes: WNL Neck: Yes: WNL Cardiovascular: Yes: Pulse Irregular Respiratory: Yes: WNL Gastrointestinal: Yes: Tenderness Genitourinary: Yes: Incontinence Musculoskeletal: Yes: Muscle Weakness Extremities: Yes: WNL Edema: No Peripheral Pulses WNL: Yes Integumentary: Yes: WNL Wound/Incision: Yes: Clean/Dry Neurological: Yes: WNL, Other ...Motor Strength: LLE, RLE Psychiatric: Yes: Agitated Labs: CBC, BMP 06/21/16 14:56 06/20/16 05:35 INR, PTT INR 1.85 (0.82-1.09) H 06/18/16 06:00 Problem List - Problems (1) Anxiety Code(s): F41.9 - ANXIETY DISORDER, UNSPECIFIED (2) HTN (hypertension) Code(s): I10 - ESSENTIAL (PRIMARY) HYPERTENSION Qualifiers: Hypertension type: essential hypertension Qualified Code(s): I10 - Essential (primary) hypertension (3) Hyperlipidemia Code(s): E78.5 - HYPERLIPIDEMIA, UNSPECIFIED Qualifiers: Hyperlipidemia type: pure hypercholesterolemia Qualified Code(s): E78.0 - Pure hypercholesterolemia (4) Rapid atrial fibrillation Code(s): I48.91 - UNSPECIFIED ATRIAL FIBRILLATION (5) Renal insufficiency Code(s): N28.9 - DISORDER OF KIDNEY AND URETER, UNSPECIFIED (6) Uterine abscess Code(s): N71.9 - INFLAMMATORY DISEASE OF UTERUS, UNSPECIFIED (7) Anxiety and depression Code(s): F41.9 - ANXIETY DISORDER, UNSPECIFIED F32.9 - MAJOR DEPRESSIVE DISORDER, SINGLE EPISODE, UNSPECIFIED Assessment/Plan DISCUSSED WITH DR MURPHY CARCASS WASHER AND DR KIRILL DSOUZA SX INTERVENTIONAL RADIOLOGY WILL TRY TO PLACE A DRAIN IN THE UTERINE ABSCESS TO REMOVE INFECTION/PUS. PATIENT SEEN TODAY BY DR CASTRO ONC/CARCASS WASHER WHO FEELS PATIENT IS HIGH RISK FOR HYSTERECTOMY HERE AT [facility]. PATIENT SHOULD BE TRANSFERRED TO A TERTIARY CENTER AND C WAS A POSSIBILITY FOR DR MURPHY IF IR CAN PLACE A DRAIN IN UTERUS. AC ON HOLD TRANSFUSE NEEDED CT WITH CONTRAST CLEAR DIET TONIGHT
[2016-06-22] MEDS: METRONIDAZOLE 500 MG PREMIXED 100 ML IVPB SCH ×3 (03:17→18:05)
[2016-06-22] MEDS: clonazePAM 0.5 MG TABLET PO SCH ×4 (05:51→21:29)
[2016-06-22 07:21] LABS: MCH 27.7 pg (25.7-33.7); MCHC 32.2 g/dl (32.0-36.0); MEAN CELL VOLUME 85.9 fl (80-96); MEAN PLT VOLUME 6.9 fl (7.5-11.1); PLATELET COUNT 374 K/MM3 (134-434); RDW 14.8 % (11.6-15.6); WHITE BLOOD COUNT 22.2 K/mm3 (4.0-10.0)
[2016-06-22 08:10] LABS: ALBUMIN 1.6 g/dl (3.4-5.0); ALK PHOS 60 U/L (45-117); ANION GAP 11 (8-16); BILIRUBIN,TOTAL 0.4 mg/dL (0.2-1.0); CALCIUM 7.3 mg/dL (8.5-10.1); CO2 28 mmol/L (21-32); CREATININE 0.7 mg/dL (0.55-1.02); GLUCOSE,RANDOM 92 mg/dL (74-106); MAGNESIUM 1.7 mg/dL (1.8-2.4); SGOT/AST 18 U/L (15-37); SGPT/ALT 17 U/L (12-78); TOT PROT 4.6 g/dl (6.4-8.2)
--- NOTE | 2016-06-22 10:29 | PN ---
Progress Note, Physician History of Present Illness: Pt is an 80yr old woman with PMHx of HTN, HLD, a-fib (on Eliquis), dementia and anxiety. Pt was discharged on 05/31 to [facility] after admission for cellulitis. Pt now presents to the ER with CC of abdominal pain. In the ER pt with BUN/Cr 28/1.1 and WBC 17.4. Prelim read of CT of ab/pel concerning for possible acute process. Pt admitted to the ICU for further management. Upon assessment pt denies chest pain/sob/stomachache/headache/diarrhea. 115/62, HR 79 (sinus on tele) low 90s on NC RR 20s. - Past Medical History - Current Medication List Current Medications: Active Medications Acetaminophen (Tylenol -) 650 mg PO Q6H PRN PRN Reason: FEVER OR PAIN Last Admin: 06/19/16 22:23 Dose: 650 mg Amino Acids (Prostat Sugar-Free Packet -) 30 ml PO BID@0800,1730 ON LICENSE OF [facility] Last Admin: 06/21/16 18:44 Dose: 30 ml Ascorbic Acid (Vitamin C -) 500 mg PO DAILY ON [facility] OF [facility] Last Admin: 06/21/16 12:18 Dose: 500 mg Clonazepam (Klonopin -) 0.5 mg PO TID ON LICENSE OF [facility] Last Admin: 06/22/16 05:51 Dose: Not Given Clonidine HCl (Catapres Tts Patch -) 0.1 mg TD Q7D@1000 ON LICENSE OF [facility] Cyanocobalamin (Vitamin B12 Injection -) 1,000 mcg IM DAILY ON LICENSE OF [facility] Last Admin: 06/21/16 12:19 Dose: 1,000 mcg Digoxin (Lanoxin -) 0.125 mg PO DAILY ON [facility] OF [facility] Last Admin: 06/21/16 12:19 Dose: 0.125 mg Enoxaparin Sodium (Lovenox -) 60 mg SQ BID ON LICENSE OF [facility] Last Admin: 06/21/16 22:47 Dose: 60 mg Ferrous Sulfate (Feosol -) 325 mg PO DAILY ON [facility] OF [facility] Last Admin: 06/21/16 12:18 Dose: 325 mg Folic Acid (Folic Acid -) 1 mg PO DAILY ON [facility] OF [facility] Last Admin: 06/21/16 12:18 Dose: 1 mg Ceftriaxone Sodium (Rocephin 2gm Ivpb (Pre-Docked)) 100 mls @ 200 mls/hr IVPB DAILY ON LICENSE OF [facility] Last Admin: 02/14/17 09:12 Dose: 200 mls/hr Metronidazole (Flagyl 500mg Premixed Ivpb -) 100 mls @ 100 mls/hr IVPB Q8H-IV ON LICENSE OF [facility] Last Admin: 06/22/16 03:17 Dose: 100 mls/hr Amino Acids (Clinimix -) 1,000 mls @ 42 mls/hr IV ASDIR ON LICENSE OF [facility] Last Admin: 06/21/16 14:36 Dose: 42 mls/hr Lactobacillus Acidophilus (Bacid -) 1 tab PO DAILY ON [facility] OF [facility] Last Admin: 06/21/16 12:18 Dose: 1 tab Metoprolol Tartrate (Lopressor Injection -) 5 mg IVPUSH Q4H PRN PRN Reason: HYPERTENSION Last Admin: 06/18/16 06:00 Dose: 5 mg Metoprolol Tartrate (Lopressor -) 25 mg PO BID ON LICENSE OF [facility] Last Admin: 06/21/16 22:47 Dose: 25 mg Multivitamins/Minerals/Vitamin C (Tab-A-Vit -) 1 tab PO DAILY ON LICENSE OF [facility] Last Admin: 06/21/16 12:18 Dose: 1 tab Ondansetron HCl (Zofran Injection) 4 mg IVPB Q6H PRN PRN Reason: NAUSEA Potassium Phos/Sodium Phos (Phos-Nak Packet -) 1 packet PO DAILY ON LICENSE OF [facility] Last Admin: 06/21/16 12:19 Dose: 1 packet - Objective Vital Signs: Vital Signs Temperature 98.1 F 06/22/16 09:42 Pulse Rate 91 H 06/22/16 10:00 Respiratory Rate 20 06/22/16 09:42 Blood Pressure 107/49 06/22/16 09:42 O2 Sat by Pulse Oximetry (%) 97 06/22/16 10:00 Eyes: Yes: WNL, Conjunctiva Clear, EOM Intact HENT: Yes: WNL, Atraumatic, Normocephalic Neck: Yes: WNL, Supple, Trachea Midline Cardiovascular: Yes: Pulse Irregular, S1, S2 Respiratory: Yes: WNL, Regular, CTA Bilaterally Gastrointestinal: Yes: WNL, Normal Bowel Sounds Genitourinary: Yes: WNL Musculoskeletal: Yes: WNL Extremities: Yes: WNL Edema: No Integumentary: Yes: WNL Neurological: Yes: WNL, Alert, Oriented ...Motor Strength: WNL Psychiatric: Yes: WNL Labs: CBC, BMP 06/22/16 05:35 06/22/16 05:35 INR, PTT INR 1.85 (0.82-1.09) H 06/18/16 06:00 Problem List - Problems (1) Bowel perforation Code(s): K63.1 - PERFORATION OF INTESTINE (NONTRAUMATIC) (2) Diverticulitis of colon with perforation Code(s): K57.20 - DVTRCLI OF LG INT W PERFORATION AND ABSCESS W/O BLEEDING (3) Intra-abdominal abscess Code(s): K65.1 - PERITONEAL ABSCESS (4) Anxiety Code(s): F41.9 - ANXIETY DISORDER, UNSPECIFIED (5) Thibodeaux's cyst of knee Code(s): M71.20 - SYNOVIAL CYST OF POPLITEAL SPACE [THIBODEAUX], UNSPECIFIED KNEE Qualifiers: Laterality: left Qualified Code(s): M71.22 - Synovial cyst of popliteal space [Thibodeaux], left knee (6) Cellulitis Code(s): L03.90 - CELLULITIS, UNSPECIFIED (7) Contusion of foot Code(s): S90.30XA - CONTUSION OF UNSPECIFIED FOOT, INITIAL ENCOUNTER (8) Cystitis Code(s): N30.90 - CYSTITIS, UNSPECIFIED WITHOUT HEMATURIA (9) Dehydration Code(s): E86.0 - DEHYDRATION (10) Fever Code(s): R50.9 - FEVER, UNSPECIFIED (11) Gait difficulty Code(s): R26.9 - UNSPECIFIED ABNORMALITIES OF GAIT AND MOBILITY (12) Generalized weakness Code(s): R53.1 - WEAKNESS (13) HTN (hypertension) Code(s): I10 - ESSENTIAL (PRIMARY) HYPERTENSION Qualifiers: Hypertension type: essential hypertension Qualified Code(s): I10 - Essential (primary) hypertension (14) Hyperlipidemia Code(s): E78.5 - HYPERLIPIDEMIA, UNSPECIFIED Qualifiers: Hyperlipidemia type: pure hypercholesterolemia Qualified Code(s): E78.0 - Pure hypercholesterolemia (15) Pain Code(s): R52 - PAIN, UNSPECIFIED (16) Rapid atrial fibrillation Code(s): I48.91 - UNSPECIFIED ATRIAL FIBRILLATION (17) Renal insufficiency Code(s): N28.9 - DISORDER OF KIDNEY AND URETER, UNSPECIFIED (18) Sepsis Code(s): A41.9 - SEPSIS, UNSPECIFIED ORGANISM Qualifiers: Sepsis type: Escherichia coli Qualified Code(s): A41.51 - Sepsis due to Escherichia coli [E. coli] (19) UTI (urinary tract infection) Code(s): N39.0 - URINARY TRACT INFECTION, SITE NOT SPECIFIED Assessment/Plan - Problems (1) Afib Assessment/Plan: Pt was on metoprolol at home; may use IV metoprolol for HR and BP until able to take PO. On apixaban at home; restart as soon as cleared by surgeon. F/u digoxin level (keep 0.5-1.0). Code(s): I48.91 - UNSPECIFIED ATRIAL FIBRILLATION (2) Intra-abdominal abscess Assessment/Plan: As discussed with Dr. Cordon (Ornithology Teacher), pt is at high risk for Code(s): K65.1 - PERITONEAL ABSCESS (3) Anxiety Code(s): F41.9 - ANXIETY DISORDER, UNSPECIFIED (4) HTN (hypertension) Assessment/Plan: On metoprolol and clonidine at home; last dose of clonidine 2 days ago, per pt and chart. Risk of rebound hypertension when abruptly stopping clonidine (exacerbated when also on metoprolol). Will restart metoprolol IV and clonidine patch (though ideally should overlap patch 1-2 days with oral agent) until pt is able to take PO. (May have to remove clonidine patch for procedures, eg MRI, because of aluminum , etc.). Change to PO metoprolol when able to. Code(s): I10 - ESSENTIAL (PRIMARY) HYPERTENSION Qualifiers: Hypertension type: essential hypertension Qualified Code(s): I10 - Essential (primary) hypertension (5) Sepsis Assessment/Plan: on antibiotics; followed by ID. Maintain hydration. LVEF WNL by ECHO. Code(s): A41.9 - SEPSIS, UNSPECIFIED ORGANISM Qualifiers: Sepsis type: Escherichia coli Qualified Code(s): A41.51 - Sepsis due to Escherichia coli [E. coli] (6) Anemia Code(s): D64.9 - ANEMIA, UNSPECIFIED Qualifiers: Other causes of anemia: chronic disease, other (7) GI tract abscess Assessment/Plan: On antibiotics; Pain managment. FLuids; f/u electrolytes, Hb. Surgical f/u. Code(s): K63.0 - ABSCESS OF INTESTINE
--- NOTE | 2016-06-22 10:48 | PN ---
Progress Note (short form) - Note Progress Note: No acute events No pain No nausea/vomiting Vital Signs - 24 hr 06/21/16 06/21/16 06/21/16 12:19 14:26 17:00 Temperature 97.9 F 97.1 F L Pulse Rate 112 H 94 H 96 H Respiratory 20 20 Rate Blood Pressure 126/70 140/64 O2 Sat by Pulse Oximetry (%) 06/21/16 06/21/16 06/22/16 21:00 22:00 01:43 Temperature 98.9 F 98.7 F Pulse Rate 97 H 102 H Respiratory 20 20 20 Rate Blood Pressure 122/63 155/65 O2 Sat by Pulse 95 96 Oximetry (%) 06/22/16 06/22/16 06/22/16 05:00 09:42 10:00 Temperature 100 F H 98.1 F Pulse Rate 88 76 91 H Respiratory 20 20 Rate Blood Pressure 122/54 107/49 O2 Sat by Pulse 97 Oximetry (%) Abd soft, wound clean, packing in place, no discharge or erythema JES: + purulent CBC, BMP 06/22/16 05:35 06/22/16 05:35 WBC improved. Now 22 No hysterectomy per Flat Machine Cutter/Onc- pt too high risk IR for further drainage of pelvic collection Continue antibiotics May require transfer if uterus continues to drain purulence Minimal role for General Surgery Problem List - Problems (1) HTN (hypertension) Code(s): I10 - ESSENTIAL (PRIMARY) HYPERTENSION Qualifiers: Hypertension type: essential hypertension Qualified Code(s): I10 - Essential (primary) hypertension (2) Renal insufficiency Code(s): N28.9 - DISORDER OF KIDNEY AND URETER, UNSPECIFIED (3) Sepsis Code(s): A41.9 - SEPSIS, UNSPECIFIED ORGANISM Qualifiers: Sepsis type: Escherichia coli Qualified Code(s): A41.51 - Sepsis due to Escherichia coli [E. coli] (4) Bowel perforation Code(s): K63.1 - PERFORATION OF INTESTINE (NONTRAUMATIC) (5) Intra-abdominal abscess Code(s): K65.1 - PERITONEAL ABSCESS
--- NOTE | 2016-06-22 11:40 | PN ---
Teaching Attending Note Name of Resident: Tejinder Bingham ATTENDING PHYSICIAN STATEMENT I saw and evaluated the patient. I reviewed the resident's note and discussed the case with the resident. I agree with the resident's findings and plan as documented. SUBJECTIVE: Pt seen and examined in the ICU. Transferred down for increased purulent drainage in JES drain. Low grade tempt this AM. Pt denies fevers or chills. Denies abdominal pain, nausea or vomiting. OBJECTIVE: Last Vital Signs Temp Pulse Resp BP Pulse Ox 98.1 F 91 H 20 107/49 97 06/22/16 09:42 06/22/16 10:00 06/22/16 09:42 06/22/16 09:42 06/22/16 10:00 Intake & Output 06/19/16 06/20/16 06/21/16 06/22/16 23:59 23:59 23:59 23:59 Intake Total 2150 100 718 600 Output Total 610 1360 1900 800 Balance 1540 -1260 -1182 -200 Weight 135 lb 6.4 oz Gen: chronically ill appearing Heart: RRR Lung: decreased breath sounds at the bases Abd: soft, nontender, +JES with green purulent drainage, dressings dry Ext: no edema CBC, BMP 06/22/16 05:35 06/22/16 05:35 Active Medications Acetaminophen (Tylenol -) 650 mg PO Q6H PRN PRN Reason: FEVER OR PAIN Last Admin: 06/19/16 22:23 Dose: 650 mg Amino Acids (Prostat Sugar-Free Packet -) 30 ml PO BID@0800,1730 [facility] Last Admin: 06/21/16 18:44 Dose: 30 ml Ascorbic Acid (Vitamin C -) 500 mg PO DAILY [facility] Last Admin: 06/21/16 12:18 Dose: 500 mg Clonazepam (Klonopin -) 0.5 mg PO TID [facility] Last Admin: 06/22/16 05:51 Dose: Not Given Clonidine HCl (Catapres Tts Patch -) 0.1 mg TD Q7D@1000 [facility] Cyanocobalamin (Vitamin B12 Injection -) 1,000 mcg IM DAILY [facility] Last Admin: 06/21/16 12:19 Dose: 1,000 mcg Digoxin (Lanoxin -) 0.125 mg PO DAILY [facility] Last Admin: 06/21/16 12:19 Dose: 0.125 mg Enoxaparin Sodium (Lovenox -) 60 mg SQ BID [facility] Last Admin: 06/21/16 22:47 Dose: 60 mg Ferrous Sulfate (Feosol -) 325 mg PO DAILY [facility] Last Admin: 06/21/16 12:18 Dose: 325 mg Folic Acid (Folic Acid -) 1 mg PO DAILY [facility] Last Admin: 06/21/16 12:18 Dose: 1 mg Ceftriaxone Sodium (Rocephin 2gm Ivpb (Pre-Docked)) 100 mls @ 200 mls/hr IVPB DAILY [facility] Last Admin: 06/21/16 09:12 Dose: 200 mls/hr Metronidazole (Flagyl 500mg Premixed Ivpb -) 100 mls @ 100 mls/hr IVPB Q8H-IV [facility] Last Admin: 06/22/16 03:17 Dose: 100 mls/hr Amino Acids (Clinimix -) 1,000 mls @ 42 mls/hr IV ASDIR [facility] Last Admin: 06/21/16 14:36 Dose: 42 mls/hr Lactobacillus Acidophilus (Bacid -) 1 tab PO DAILY [facility] Last Admin: 06/21/16 12:18 Dose: 1 tab Metoprolol Tartrate (Lopressor Injection -) 5 mg IVPUSH Q4H PRN PRN Reason: HYPERTENSION Last Admin: 06/18/16 06:00 Dose: 5 mg Metoprolol Tartrate (Lopressor -) 25 mg PO BID [facility] Last Admin: 06/21/16 22:47 Dose: 25 mg Multivitamins/Minerals/Vitamin C (Tab-A-Vit -) 1 tab PO DAILY [facility] Last Admin: 06/21/16 12:18 Dose: 1 tab Ondansetron HCl (Zofran Injection) 4 mg IVPB Q6H PRN PRN Reason: NAUSEA Potassium Phos/Sodium Phos (Phos-Nak Packet -) 1 packet PO DAILY [facility] Last Admin: 06/21/16 12:19 Dose: 1 packet ASSESSMENT AND PLAN: Perforated Uterus Intra-abdominal Abscess s/p ex-lap/Abscess drainage/washout/enterotomy with SB fecalith removal/primary repair Sepsis Atrial Fibrillation HTN Anxiety Dementia - continue antibiotics - monitor drain output - IR for further drainage - continue clinimix - rate controlled - continue anticoagulation - PO per surgery - pain control - DVT prophylaxis - monitor in ICU overnight
[2016-06-22] MEDS: ENOXAPARIN NA (PORCINE) 60 MG/0.6 ML DISP.SYRIN SQ SCH ×2 (11:44→21:29)
[2016-06-22] MEDS ORDERED: ACETAMINOPHEN 1000 MG/100 ML VIAL (NON FORMULARY) IVPB PRN (11:44)
[2016-06-22] MEDS: MULTIVITAMINS (DAILY MVI) TABLET (FP) PO SCH (11:45)
[2016-06-22] MEDS: FOLIC ACID 1 MG TABLET (FP) PO SCH (11:46)
[2016-06-22] MEDS: LACTOBACILLUS ACIDOPHILUS 1 EACH TAB (FP) PO SCH (11:46)
[2016-06-22] MEDS: DIGOXIN 0.125 MG TABLET (FP) PO SCH (11:46)
[2016-06-22] MEDS: FERROUS SO4 325 MG TABLET (FP) PO SCH (11:46)
[2016-06-22] MEDS: METOPROLOL TARTRATE 25 MG TABLET (FP) PO SCH ×2 (11:47→21:29)
[2016-06-22] MEDS: CYANOCOBALAMIN (VITAMIN B-12) 1000 MCG/1 ML VIAL IM SCH (11:48)
[2016-06-22] MEDS: NAPH,MB-DB/K PH,MBDB POWDER PACKET PO SCH (11:48)
[2016-06-22] MEDS: ASCORBIC ACID 500 MG TABLET (FP) PO SCH (11:49)
[2016-06-22] MEDS: CEFTRIAXONE 100 ML IVPB SCH (11:50)
--- NOTE | 2016-06-22 11:58 | PN ---
Progress Note, Physician Chief Complaint: TRANSFERRED TO ICU LETHARGIC WEAK - Current Medication List Current Medications: Active Medications Acetaminophen (Tylenol -) 650 mg PO Q6H PRN PRN Reason: FEVER OR PAIN Last Admin: 06/19/16 22:23 Dose: 650 mg Acetaminophen (Ofirmev Injection -) 650 mg IVPB Q6H PRN PRN Reason: FEVER OR PAIN Stop: 06/23/16 05:45 Amino Acids (Prostat Sugar-Free Packet -) 30 ml PO BID@0800,1730 [facility] Last Admin: 06/21/16 18:44 Dose: 30 ml Ascorbic Acid (Vitamin C -) 500 mg PO DAILY [facility] Last Admin: 06/22/16 11:49 Dose: 500 mg Clonazepam (Klonopin -) 0.5 mg PO TID [facility] Last Admin: 06/22/16 11:47 Dose: 0.5 mg Clonidine HCl (Catapres Tts Patch -) 0.1 mg TD Q7D@1000 [facility] Cyanocobalamin (Vitamin B12 Injection -) 1,000 mcg IM DAILY [facility] Last Admin: 06/22/16 11:48 Dose: 1,000 mcg Digoxin (Lanoxin -) 0.125 mg PO DAILY [facility] Last Admin: 06/22/16 11:46 Dose: 0.125 mg Enoxaparin Sodium (Lovenox -) 60 mg SQ BID [facility] Last Admin: 06/22/16 11:44 Dose: 60 mg Ferrous Sulfate (Feosol -) 325 mg PO DAILY [facility] Last Admin: 06/22/16 11:46 Dose: 325 mg Folic Acid (Folic Acid -) 1 mg PO DAILY [facility] Last Admin: 06/22/16 11:46 Dose: 1 mg Ceftriaxone Sodium (Rocephin 2gm Ivpb (Pre-Docked)) 100 mls @ 200 mls/hr IVPB DAILY [facility] Last Admin: 06/22/16 11:50 Dose: 200 mls/hr Metronidazole (Flagyl 500mg Premixed Ivpb -) 100 mls @ 100 mls/hr IVPB Q8H-IV [facility] Last Admin: 06/22/16 11:49 Dose: 100 mls/hr Amino Acids (Clinimix -) 1,000 mls @ 42 mls/hr IV ASDIR [facility] Last Admin: 06/21/16 14:36 Dose: 42 mls/hr Potassium Chloride (Potassium Chloride 10 Meq Premix Ivpb -) 100 mls @ 100 mls/ hr IVPB Q60M [facility] Stop: 06/22/16 13:59 Lactobacillus Acidophilus (Bacid -) 1 tab PO DAILY [facility] Last Admin: 06/22/16 11:46 Dose: 1 tab Magnesium Sulfate (Magnesium Sulfate) 2 gm IVPB ONCE ONE Stop: 06/22/16 11:56 Metoprolol Tartrate (Lopressor Injection -) 5 mg IVPUSH Q4H PRN PRN Reason: HYPERTENSION Last Admin: 06/18/16 06:00 Dose: 5 mg Metoprolol Tartrate (Lopressor -) 25 mg PO BID [facility] Last Admin: 06/22/16 11:47 Dose: 25 mg Multivitamins/Minerals/Vitamin C (Tab-A-Vit -) 1 tab PO DAILY [facility] Last Admin: 06/22/16 11:45 Dose: 1 tab Ondansetron HCl (Zofran Injection) 4 mg IVPB Q6H PRN PRN Reason: NAUSEA Potassium Chloride (K-Dur -) 20 meq PO ONCE ONE Stop: 06/22/16 11:55 Potassium Phos/Sodium Phos (Phos-Nak Packet -) 1 packet PO DAILY [facility] Last Admin: 06/22/16 11:48 Dose: 1 packet - Objective Vital Signs: Vital Signs Temperature 98.1 F 06/22/16 09:42 Pulse Rate 98 H 06/22/16 11:46 Respiratory Rate 20 06/22/16 09:42 Blood Pressure 107/49 06/22/16 09:42 O2 Sat by Pulse Oximetry (%) 97 06/22/16 10:00 Constitutional: Yes: Mild Distress Eyes: Yes: WNL HENT: Yes: WNL Neck: Yes: WNL Cardiovascular: Yes: WNL Respiratory: Yes: WNL Gastrointestinal: Yes: Tenderness, Rebound Genitourinary: Yes: Incontinence, Other Musculoskeletal: Yes: Muscle Weakness Extremities: Yes: WNL Edema: Yes Edema: LLE: Trace, RLE: Trace Peripheral Pulses WNL: Yes Integumentary: Yes: WNL Wound/Incision: Yes: Draining (ABD UTERINE ABSCESS GREEN DISCHARGE) Neurological: Yes: Other ...Motor Strength: LLE, RLE Labs: CBC, BMP 06/22/16 05:35 06/22/16 05:35 INR, PTT INR 1.85 (0.82-1.09) H 06/18/16 06:00 Problem List - Problems (1) Anxiety Code(s): F41.9 - ANXIETY DISORDER, UNSPECIFIED (2) HTN (hypertension) Code(s): I10 - ESSENTIAL (PRIMARY) HYPERTENSION Qualifiers: Hypertension type: essential hypertension Qualified Code(s): I10 - Essential (primary) hypertension (3) Hyperlipidemia Code(s): E78.5 - HYPERLIPIDEMIA, UNSPECIFIED Qualifiers: Hyperlipidemia type: pure hypercholesterolemia Qualified Code(s): E78.0 - Pure hypercholesterolemia (4) Rapid atrial fibrillation Code(s): I48.91 - UNSPECIFIED ATRIAL FIBRILLATION (5) Renal insufficiency Code(s): N28.9 - DISORDER OF KIDNEY AND URETER, UNSPECIFIED (6) Uterine abscess Code(s): N71.9 - INFLAMMATORY DISEASE OF UTERUS, UNSPECIFIED (7) Anxiety and depression Code(s): F41.9 - ANXIETY DISORDER, UNSPECIFIED F32.9 - MAJOR DEPRESSIVE DISORDER, SINGLE EPISODE, UNSPECIFIED Assessment/Plan DISCUSSED WITH DR MURPHY ERECTING CRANE OPERATOR AND DR KIRILL DSOUZA SX INTERVENTIONAL RADIOLOGY WILL TRY TO PLACE A DRAIN IN THE UTERINE ABSCESS TO REMOVE INFECTION/PUS. PATIENT SEEN YESTERDAY BY DR CASTRO ONC/ERECTING CRANE OPERATOR WHO FEELS PATIENT IS HIGH RISK FOR HYSTERECTOMY HERE AT [facility]. PATIENT SHOULD BE TRANSFERRED TO A TERTIARY CENTER AND [facility] WAS A POSSIBILITY FOR DR MURPHY IF IR CAN PLACE A DRAIN IN UTERUS. AC ON HOLD TRANSFUSE NEEDED CT WITH CONTRAST SOFT DIET
[2016-06-22] MEDS ORDERED: POTASSIUM CHLORIDE TABS 20 MEQ TABLET.ER (FP) PO ONE (12:30)
[2016-06-22] MEDS ORDERED: MAGNESIUM SULF 50% (8.12 MEQ/2 ML-1 GM VIAL) IVPB ONE (12:30)
[2016-06-22] MEDS: KCL 10 MEQ IVPB 100 ML IVPB SCH ×2 (12:42→16:01)
[2016-06-22] MEDS: AMINO ACIDS 4.25%/D5W 1,000 ML IV SCH (12:43)
--- NOTE | 2016-06-22 17:17 | PN ---
Physical Exam: SUBJECTIVE: Patient seen and examined at bedside in the ICU. She's confused and somnolent. c/o sweating and denies chest pain, sob, abd pain, n/v, urinary or bowel sx. OBJECTIVE: Vital Signs Period Temp Pulse Resp BP Sys/Palafox Pulse Ox Last 24 Hr 98.1 F-100 F 76-102 20-20 107-155/49-65 95-97 GENERAL: weak, lethargic, somnolent, breathing via NC no apparent cardiopulmonary distress HEAD: AT/NC EYES: Pupils equal, round and reactive to light, extraocular movements intact, sclera anicteric, conjunctiva clear. LUNGS: bilateral rhonchi HEART: Irregularly irregular, S1 and S2 without murmur, rub or gallop. ABDOMEN: Soft, nontender, not distended, normoactive bowel sounds, no guarding, no rebound, no masses, JES drain in place, clean dressing EXTREMITIES: Bilateral chronic venous statis with no apparent lesions. No calf tenderness. No peripheral edema. NEUROLOGICAL: Cranial nerves II-XII intact, 5/5 strength in all limbs and intact sensation Laboratory Results - last 24 hr 06/22/16 06/22/16 05:35 05:35 WBC 22.2 H RBC 3.11 L Hgb 8.6 L D Hct 26.7 L MCV 85.9 MCHC 32.2 RDW 14.8 Plt Count 374 D MPV 6.9 L Sodium 142 Potassium 3.0 L D Chloride 103 Carbon Dioxide 28 D Anion Gap 11 BUN 20 H D Creatinine 0.7 Creat Clearance w eGFR > 60 Random Glucose 92 Calcium 7.3 L Magnesium 1.7 L Total Bilirubin 0.4 AST 18 D ALT 17 D Alkaline Phosphatase 60 Total Protein 4.6 L Albumin 1.6 L Active Medications Generic Name Dose Route Start Last Admin Trade Name Freq PRN Reason Stop Dose Admin Acetaminophen 650 mg 06/17/16 22:06 06/19/16 22:23 Tylenol - PO 650 mg Q6H PRN Administration FEVER OR PAIN Acetaminophen 650 mg 06/22/16 11:44 Ofirmev Injection - IVPB 06/23/16 05:45 Q6H PRN FEVER OR PAIN Amino Acids 30 ml 06/17/16 17:30 06/21/16 18:44 Prostat Sugar-Free Packet - PO 30 ml BID@0800,1730 [facility] Administration Ascorbic Acid 500 mg 06/18/16 10:00 06/22/16 11:49 Vitamin C - PO 500 mg DAILY [facility] Administration Clonazepam 0.5 mg 06/18/16 14:00 06/22/16 11:47 Klonopin - PO 0.5 mg TID [facility] Administration Clonidine HCl 0.1 mg 06/23/16 10:00 Catapres Tts Patch - TD Q7D@1000 [facility] Cyanocobalamin 1,000 mcg 06/18/16 10:00 06/22/16 11:48 Vitamin B12 Injection - IM 1,000 mcg DAILY [facility] Administration Digoxin 0.125 mg 06/20/16 10:00 06/22/16 11:46 Lanoxin - PO 0.125 mg DAILY [facility] Administration Enoxaparin Sodium 60 mg 06/20/16 22:00 06/22/16 11:44 Lovenox - SQ 60 mg BID [facility] Administration Ferrous Sulfate 325 mg 06/18/16 10:00 06/22/16 11:46 Feosol - PO 325 mg DAILY [facility] Administration Folic Acid 1 mg 06/18/16 10:00 06/22/16 11:46 Folic Acid - PO 1 mg DAILY [facility] Administration Ceftriaxone Sodium 100 mls @ 200 mls/hr 06/18/16 10:00 06/22/16 11:50 Rocephin 2gm Ivpb (Pre-Docked) IVPB 200 mls/hr DAILY [facility] Administration Metronidazole 100 mls @ 100 mls/hr 06/17/16 18:00 06/22/16 11:49 Flagyl 500mg Premixed Ivpb - IVPB 100 mls/hr Q8H-IV [facility] Administration Amino Acids 1,000 mls @ 42 mls/hr 06/21/16 12:00 06/22/16 12:43 Clinimix - IV 42 mls/hr ASDIR [facility] Administration Lactobacillus Acidophilus 1 tab 06/18/16 10:00 06/22/16 11:46 Bacid - PO 1 tab DAILY [facility] Administration Metoprolol Tartrate 5 mg 06/17/16 16:31 06/18/16 06:00 Lopressor Injection - IVPUSH 5 mg Q4H PRN Administration HYPERTENSION Metoprolol Tartrate 25 mg 06/19/16 10:00 06/22/16 11:47 Lopressor - PO 25 mg BID [facility] Administration Multivitamins/Minerals/Vitamin C 1 tab 06/18/16 10:00 06/22/16 11:45 Tab-A-Vit - PO 1 tab DAILY [facility] Administration Ondansetron HCl 4 mg 06/17/16 16:31 Zofran Injection IVPB Q6H PRN NAUSEA Potassium Phos/Sodium Phos 1 packet 06/18/16 10:00 06/22/16 11:48 Phos-Nak Packet - PO 1 packet DAILY [facility] Administration ASSESSMENT/PLAN: 80 yo F with h/o HTN, HLD, a-fib on Eliquis, dementia and anxiety admitted to ICU for sepsis 2/2 pelvic abscess s/p exploratory laparotomy, abdominal washout , and drainage of intraabdominal abscess. Neuro - confused, lethargic, somnolent ID - sepsis 2/2 pelvic abscess - frebile and elevated WBC in downtrend - trend lactic acid and white count - will re-consult ID regarding abx Pulm - mucinex 600mg BID - f/u CXR Cardio - stable GI - hold off surgical intervention - will re-consult IR for percutanous drainage if abx fails Renal/ - hypokalemia, replete with KCl 20mm IVPB - vasques in place - monitor I/O Heme - trend CBC Prophylaxis - DVT: SCD - GI: eating, not indicated Nutrition - soft diet Dispo: Dr. Mercado and I spoke to patient's family regarding Ms. Pop's prognosis and treatment plan. Patient's daughter and son agree that surgical intervention is of limited benefit at this point and they would like to continue medical treatment for Ms. Pop for now. We will continue abx and monitor Visit type - Emergency Visit Emergency Visit: No - New Patient This patient is new to me today: Yes Date on this admission: 06/22/16 - Critical Care Critical Care patient: Yes Total Critical Care Time (in minutes): 45 Critical Care Statement: The care of this patient involved high complexity decision making to prevent further life threatening deterioration of the patient 's condition and/or to evalute & treat vital organ system(s) failure or risk of failure.
--- NOTE | 2016-06-22 17:34 | PN ---
Progress Note (SOAP) - Subjective Chief Complaint: I saw the pt today. She is in the ICU but denies pain or any complaints. (+) flatus, tolerating diet, no Nausea/vomiting. I also spoke to the pt's daughter and son (Bulmaro Pop) to discuss the pt and clinical data/plan. History of Present Illness: s/p explor laparotomy, drainage of abd/pelvic abscess, enterotomy. JES drain in situ with purulent drainage. WBC declined today. - Current Medications Current Medications: Active Medications Acetaminophen (Tylenol -) 650 mg PO Q6H PRN PRN Reason: FEVER OR PAIN Last Admin: 06/19/16 22:23 Dose: 650 mg Acetaminophen (Ofirmev Injection -) 650 mg IVPB Q6H PRN PRN Reason: FEVER OR PAIN Stop: 06/23/16 05:45 Amino Acids (Prostat Sugar-Free Packet -) 30 ml PO BID@0800,1730 [facility] Last Admin: 06/21/16 18:44 Dose: 30 ml Ascorbic Acid (Vitamin C -) 500 mg PO DAILY [facility] Last Admin: 06/22/16 11:49 Dose: 500 mg Clonazepam (Klonopin -) 0.5 mg PO TID [facility] Last Admin: 06/22/16 11:47 Dose: 0.5 mg Clonidine HCl (Catapres Tts Patch -) 0.1 mg TD Q7D@1000 [facility] Cyanocobalamin (Vitamin B12 Injection -) 1,000 mcg IM DAILY [facility] Last Admin: 06/22/16 11:48 Dose: 1,000 mcg Digoxin (Lanoxin -) 0.125 mg PO DAILY [facility] Last Admin: 06/22/16 11:46 Dose: 0.125 mg Enoxaparin Sodium (Lovenox -) 60 mg SQ BID [facility] Last Admin: 06/22/16 11:44 Dose: 60 mg Ferrous Sulfate (Feosol -) 325 mg PO DAILY [facility] Last Admin: 06/22/16 11:46 Dose: 325 mg Folic Acid (Folic Acid -) 1 mg PO DAILY [facility] Last Admin: 06/22/16 11:46 Dose: 1 mg Ceftriaxone Sodium (Rocephin 2gm Ivpb (Pre-Docked)) 100 mls @ 200 mls/hr IVPB DAILY [facility] Last Admin: 06/22/16 11:50 Dose: 200 mls/hr Metronidazole (Flagyl 500mg Premixed Ivpb -) 100 mls @ 100 mls/hr IVPB Q8H-IV [facility] Last Admin: 06/22/16 11:49 Dose: 100 mls/hr Amino Acids (Clinimix -) 1,000 mls @ 42 mls/hr IV ASDIR [facility] Last Admin: 06/22/16 12:43 Dose: 42 mls/hr Lactobacillus Acidophilus (Bacid -) 1 tab PO DAILY [facility] Last Admin: 06/22/16 11:46 Dose: 1 tab Metoprolol Tartrate (Lopressor Injection -) 5 mg IVPUSH Q4H PRN PRN Reason: HYPERTENSION Last Admin: 06/18/16 06:00 Dose: 5 mg Metoprolol Tartrate (Lopressor -) 25 mg PO BID [facility] Last Admin: 06/22/16 11:47 Dose: 25 mg Multivitamins/Minerals/Vitamin C (Tab-A-Vit -) 1 tab PO DAILY [facility] Last Admin: 06/22/16 11:45 Dose: 1 tab Ondansetron HCl (Zofran Injection) 4 mg IVPB Q6H PRN PRN Reason: NAUSEA Potassium Phos/Sodium Phos (Phos-Nak Packet -) 1 packet PO DAILY [facility] Last Admin: 06/22/16 11:48 Dose: 1 packet - Objective Vital Signs: Vital Signs Temperature 98.1 F 06/22/16 09:42 Pulse Rate 98 H 06/22/16 11:46 Respiratory Rate 20 06/22/16 09:42 Blood Pressure 107/49 06/22/16 09:42 O2 Sat by Pulse Oximetry (%) 97 06/22/16 10:00 Constitutional: Yes: No Distress, Calm, Pallor Eyes: Yes: WNL, Conjunctiva Clear HENT: Yes: Atraumatic, Normocephalic Neck: Yes: Supple, Trachea Midline Cardiovascular: Yes: Regular Rate and Rhythm Respiratory: Yes: Regular, CTA Bilaterally Gastrointestinal: Yes: Normal Bowel Sounds, Soft ...Rectal Exam: Yes: Deferred Genitourinary: Yes: WNL Musculoskeletal: Yes: Muscle Weakness Extremities: Yes: WNL Peripheral Pulses WNL: Yes Edema: No Wound/Incision: Yes: Clean/Dry, Dressing Dry and Intact, Unapproximated ( packing in place), Other (JES site clean) Neurological: Yes: Alert Psychiatric: Yes: Alert Additional Findings/Remarks: JES drain with purulent material Labs Lab Results: CBC, BMP 06/22/16 05:35 06/22/16 05:35 Imaging - Results Cat Scan: Image Reviewed (CT images were reviewed in conference with Dr. Medina (IR) and Dr. Wayne (Gen Surg)) Ultrasound: Image Reviewed Problem List - Problems (1) Pelvic fluid collection Code(s): R18.8 - OTHER ASCITES (2) PID (acute pelvic inflammatory disease) Assessment/Plan: I discussed this pt with Dr. Medina, Dr. Wayne, Dr. Su. There is a consensus that the pt is very frail and has multiple co-morbidities, therefore, will not benefit from surgical management. The [facility] was contacted and case discussed with Dr. Casey for a possible transfer to a tertiary care facility ; however when the data was reviewed, the transfer was declined because no additional treatment would be likely beneficial and offered. Since the pt is not a surgical candidate and the WBC is declining, recommend continue abx coverage. If the pt's condition deteriorates, reconsult IR for a possible percutaneous drain of the pelvic abscess vs expanded abx coverage. Code(s): N73.0 - ACUTE PARAMETRITIS AND PELVIC CELLULITIS (3) Anemia Assessment/Plan: No evidence of ongoing bleeding. Likely due to chronic dz and infection. Consider blood transfusion as needed. Code(s): D64.9 - ANEMIA, UNSPECIFIED Qualifiers: Other causes of anemia: chronic disease, other (4) Uterine abscess Code(s): N71.9 - INFLAMMATORY DISEASE OF UTERUS, UNSPECIFIED (5) Leukocytosis Code(s): D72.829 - ELEVATED WHITE BLOOD CELL COUNT, UNSPECIFIED Assessment/Plan DVT prophylaxis: dropping Hct noted. Doubt active bleeding. Consider restarting prophylactic Heparin. I had a long discussion with the pt's family (daughter and son) who agree that the pt is not a surgical candidate. They also prefer to defer the IR procedure since the IR procedure has risks and may be of limited benefit. Since the pt's WBC is declining, will continue IV abx. The family agreed with the plan. Dr. Oneal is also aware of the information and plan. I spent over 90 minutes in reviewing pt's data, disscussions and conferences with different doctors/services/family/patient.
[2016-06-22] MEDS: AMINO ACIDS/PROTEIN HYDROLYS SUGAR-FREE 30 ML PACKET PO SCH (18:15)
[2016-06-22] MEDS ORDERED: POTASSIUM CHLORIDE 20 MEQ PREMIX IVPB 100 ML IVPB ONE (18:33)
[2016-06-22] MEDS: guaiFENesin 600 MG TABLET.ER (FP) PO SCH (21:29)
[2016-06-23] MEDS: METRONIDAZOLE 500 MG PREMIXED 100 ML IVPB SCH ×3 (02:40→17:10)
[2016-06-23 05:55] LABS: MCHC 32.6 g/dl (32.0-36.0); MEAN CELL VOLUME 86.1 fl (80-96); PLATELET COUNT 421 K/MM3 (134-434); RDW 14.9 % (11.6-15.6)
[2016-06-23 06:17] LABS: INR 1.61 (0.82-1.09); PROTHROMBIN TIME (PATIENT) 17.9 SEC (9.98-11.88)
[2016-06-23] MEDS: clonazePAM 0.5 MG TABLET PO SCH ×3 (06:28→21:22)
[2016-06-23 06:32] LABS: ALBUMIN 1.6 g/dl (3.4-5.0); ALK PHOS 58 U/L (45-117); ANION GAP 9 (8-16); BILIRUBIN,TOTAL 0.3 mg/dL (0.2-1.0); CALCIUM 7.4 mg/dL (8.5-10.1); CO2 29 mmol/L (21-32); CREATININE 0.6 mg/dL (0.55-1.02); GLUCOSE,RANDOM 100 mg/dL (74-106); PHOSPHOROUS 1.9 mg/dL (2.5-4.9); SGOT/AST 13 U/L (15-37); SGPT/ALT 16 U/L (12-78); TOT PROT 4.7 g/dl (6.4-8.2)
[2016-06-23] MEDS ORDERED: POTASSIUM CHLORIDE TABS 20 MEQ TABLET.ER (FP) PO ONE (07:57)
[2016-06-23] MEDS ORDERED: AMINO ACIDS/PROTEIN HYDROLYS 30 ML LIQUID.PKT PO SCH (08:00)
--- NOTE | 2016-06-23 08:04 | PN ---
Progress Note, Physician Chief Complaint: Pt feels weak, speaks softly; denies chest pain, dyspnea, or abdominal pain. History of Present Illness: 80yr old white woman presented to ED via EMS from [facility] with c/ o abd pain. According to patient son, patient has been having abd pain all day starting at 6pm, pain progressed at 1015pm- patient given oxycontin with no relief- patient sent to this ED for evaluation. Son inform service writer that patient recently admitted May 27 for "blood infection" and d/c to [facility] for rehab but has not gotten out of bed per son. Patient also has not had a BM today. Denies any other complaints at this time. - Current Medication List Current Medications: Active Medications Acetaminophen (Tylenol -) 650 mg PO Q6H PRN PRN Reason: FEVER OR PAIN Last Admin: 06/19/16 22:23 Dose: 650 mg Amino Acids (Prosource No Carb Liquid Pkt) 30 ml PO BID@08,1730 [facility] Ascorbic Acid (Vitamin C -) 500 mg PO DAILY [facility] Last Admin: 06/22/16 11:49 Dose: 500 mg Clonazepam (Klonopin -) 0.5 mg PO TID [facility] Last Admin: 06/23/16 06:28 Dose: Not Given Clonidine HCl (Catapres Tts Patch -) 0.1 mg TD Q7D@1000 [facility] Cyanocobalamin (Vitamin B12 Injection -) 1,000 mcg IM DAILY [facility] Last Admin: 06/22/16 11:48 Dose: 1,000 mcg Digoxin (Lanoxin -) 0.125 mg PO Q2D [facility] Enoxaparin Sodium (Lovenox -) 60 mg SQ BID [facility] Last Admin: 06/22/16 21:29 Dose: 60 mg Ferrous Sulfate (Feosol -) 325 mg PO DAILY [facility] Last Admin: 06/22/16 11:46 Dose: 325 mg Folic Acid (Folic Acid -) 1 mg PO DAILY [facility] Last Admin: 06/22/16 11:46 Dose: 1 mg Guaifenesin (Mucinex -) 600 mg PO BID [facility] Last Admin: 06/22/16 21:29 Dose: 600 mg Ceftriaxone Sodium (Rocephin 2gm Ivpb (Pre-Docked)) 100 mls @ 200 mls/hr IVPB DAILY [facility] Last Admin: 06/22/16 11:50 Dose: 200 mls/hr Metronidazole (Flagyl 500mg Premixed Ivpb -) 100 mls @ 100 mls/hr IVPB Q8H-IV [facility] Last Admin: 06/23/16 02:40 Dose: 100 mls/hr Amino Acids (Clinimix -) 1,000 mls @ 42 mls/hr IV ASDIR [facility] Last Admin: 06/22/16 12:43 Dose: 42 mls/hr Lactobacillus Acidophilus (Bacid -) 1 tab PO DAILY [facility] Last Admin: 06/22/16 11:46 Dose: 1 tab Metoprolol Tartrate (Lopressor Injection -) 5 mg IVPUSH Q4H PRN PRN Reason: HYPERTENSION Last Admin: 06/18/16 06:00 Dose: 5 mg Metoprolol Tartrate (Lopressor -) 25 mg PO BID [facility] Last Admin: 06/22/16 21:29 Dose: 25 mg Multivitamins/Minerals/Vitamin C (Tab-A-Vit -) 1 tab PO DAILY [facility] Last Admin: 06/22/16 11:45 Dose: 1 tab Ondansetron HCl (Zofran Injection) 4 mg IVPB Q6H PRN PRN Reason: NAUSEA Potassium Phos/Sodium Phos (Phos-Nak Packet -) 1 packet PO DAILY [facility] Last Admin: 06/22/16 11:48 Dose: 1 packet - Objective Vital Signs: Vital Signs Temperature 99.5 F 06/23/16 06:00 Pulse Rate 85 06/23/16 06:00 Respiratory Rate 18 06/23/16 06:00 Blood Pressure 132/70 06/23/16 06:00 O2 Sat by Pulse Oximetry (%) 99 06/22/16 20:08 Constitutional: Yes: Calm, Thin Eyes: Yes: WNL Cardiovascular: Yes: Pulse Irregular Respiratory: Yes: Regular Gastrointestinal: Yes: Soft, Other (drain tube site without exudate) ...Rectal Exam: Yes: Deferred Genitourinary: No: Anuria Musculoskeletal: Yes: Muscle Weakness Extremities: Yes: Cool Edema: No Peripheral Pulses WNL: No Peripheral Pulses: Left Doralis Pedis: 1+, Right Dorsalis Pedis: 1+ Psychiatric: Yes: Alert, Oriented Labs: CBC, BMP 06/23/16 05:00 06/23/16 05:00 INR, PTT INR 1.61 (0.82-1.09) H 06/23/16 05:00 Abnormal Lab Results 06/23/16 06/23/16 06/23/16 05:00 05:00 05:00 WBC 16.0 H RBC 3.16 L Hgb 8.9 L Hct 27.2 L MPV 7.0 L INR 1.61 H Potassium 3.2 L BUN 19 H Calcium 7.4 L Phosphorus 1.9 L D AST 13 L D C-Reactive Protein 8.5 H D Total Protein 4.7 L Albumin 1.6 L Problem List - Problems (1) Afib Assessment/Plan: Decreased digoxin to 0.125 mg every other day (level 1.47); keep level 0.5-1.0. Continue metoprlolol. On Lovenox until PO anticoagulation restarted. Replete electrolytes. Code(s): I48.91 - UNSPECIFIED ATRIAL FIBRILLATION (2) Intra-abdominal abscess Assessment/Plan: Moved to ICU for increased abd drainage of purulent fluid and low-grade temp. As discussed with Dr. Cordon ([employer]), pt is at high risk for hysterectomy; pt and family defer surgery presently. Code(s): K65.1 - PERITONEAL ABSCESS (3) Anxiety Code(s): F41.9 - ANXIETY DISORDER, UNSPECIFIED (4) HTN (hypertension) Assessment/Plan: On metoprolol, and clonidine restarted. Risk of rebound hypertension when abruptly stopping clonidine (exacerbated when also on metoprolol). Code(s): I10 - ESSENTIAL (PRIMARY) HYPERTENSION Qualifiers: Hypertension type: essential hypertension Qualified Code(s): I10 - Essential (primary) hypertension (5) Sepsis Assessment/Plan: on antibiotics; followed by ID. Maintain hydration. LVEF WNL by ECHO. Code(s): A41.9 - SEPSIS, UNSPECIFIED ORGANISM Qualifiers: Sepsis type: Escherichia coli Qualified Code(s): A41.51 - Sepsis due to Escherichia coli [E. coli] (6) Anemia Code(s): D64.9 - ANEMIA, UNSPECIFIED Qualifiers: Other causes of anemia: chronic disease, other (7) GI tract abscess Assessment/Plan: Transferred to ICU due to increased purulent fluid drainage, and low grade temp. On antibiotics; Pain managment. FLuids; f/u electrolytes, Hb. Family defers further surgery. Surgical f/u. Code(s): K63.0 - ABSCESS OF INTESTINE Assessment/Plan CCU time spent: 45 minutes.
--- NOTE | 2016-06-23 08:47 | PN ---
Progress Note, Physician Chief Complaint: ID Transfered to ICU for "Lethargy" Currently alert able to answer appropriately NAD Ceftriaxone metronidazole - Current Medication List Current Medications: Active Medications Acetaminophen (Tylenol -) 650 mg PO Q6H PRN PRN Reason: FEVER OR PAIN Last Admin: 06/19/16 22:23 Dose: 650 mg Amino Acids (Prosource No Carb Liquid Pkt) 30 ml PO BID@08,1730 [facility] Ascorbic Acid (Vitamin C -) 500 mg PO DAILY [facility] Last Admin: 06/22/16 11:49 Dose: 500 mg Clonazepam (Klonopin -) 0.5 mg PO TID [facility] Last Admin: 06/23/16 06:28 Dose: Not Given Clonidine HCl (Catapres Tts Patch -) 0.1 mg TD Q7D@1000 [facility] Cyanocobalamin (Vitamin B12 Injection -) 1,000 mcg IM DAILY [facility] Last Admin: 06/22/16 11:48 Dose: 1,000 mcg Digoxin (Lanoxin -) 0.125 mg PO Q2D [facility] Enoxaparin Sodium (Lovenox -) 60 mg SQ BID [facility] Last Admin: 06/22/16 21:29 Dose: 60 mg Ferrous Sulfate (Feosol -) 325 mg PO DAILY [facility] Last Admin: 06/22/16 11:46 Dose: 325 mg Folic Acid (Folic Acid -) 1 mg PO DAILY [facility] Last Admin: 06/22/16 11:46 Dose: 1 mg Guaifenesin (Mucinex -) 600 mg PO BID [facility] Last Admin: 06/22/16 21:29 Dose: 600 mg Ceftriaxone Sodium (Rocephin 2gm Ivpb (Pre-Docked)) 100 mls @ 200 mls/hr IVPB DAILY [facility] Last Admin: 06/22/16 11:50 Dose: 200 mls/hr Metronidazole (Flagyl 500mg Premixed Ivpb -) 100 mls @ 100 mls/hr IVPB Q8H-IV [facility] Last Admin: 06/23/16 02:40 Dose: 100 mls/hr Amino Acids (Clinimix -) 1,000 mls @ 42 mls/hr IV ASDIR [facility] Last Admin: 06/22/16 12:43 Dose: 42 mls/hr Lactobacillus Acidophilus (Bacid -) 1 tab PO DAILY [facility] Last Admin: 06/22/16 11:46 Dose: 1 tab Metoprolol Tartrate (Lopressor Injection -) 5 mg IVPUSH Q4H PRN PRN Reason: HYPERTENSION Last Admin: 06/18/16 06:00 Dose: 5 mg Metoprolol Tartrate (Lopressor -) 25 mg PO BID [facility] Last Admin: 06/22/16 21:29 Dose: 25 mg Multivitamins/Minerals/Vitamin C (Tab-A-Vit -) 1 tab PO DAILY [facility] Last Admin: 06/22/16 11:45 Dose: 1 tab Ondansetron HCl (Zofran Injection) 4 mg IVPB Q6H PRN PRN Reason: NAUSEA Potassium Phos/Sodium Phos (Phos-Nak Packet -) 1 packet PO DAILY [facility] Last Admin: 06/22/16 11:48 Dose: 1 packet - Objective Vital Signs: Vital Signs Temperature 99.5 F 06/23/16 06:00 Pulse Rate 85 06/23/16 06:00 Respiratory Rate 18 06/23/16 06:00 Blood Pressure 132/70 06/23/16 06:00 O2 Sat by Pulse Oximetry (%) 99 06/22/16 20:08 Constitutional: Yes: No Distress, Thin HENT: Yes: WNL, Atraumatic Neck: Yes: WNL, Supple Cardiovascular: Yes: Regular Rate and Rhythm, S1, S2. No: Murmur, Rub Respiratory: Yes: WNL, CTA Bilaterally, Diminished. No: Sonny-Gallagher Gastrointestinal: Yes: WNL, Normal Bowel Sounds, Soft, Other (Drain Wound clearn ) Edema: No Labs: CBC, BMP 06/23/16 05:00 06/23/16 05:00 INR, PTT INR 1.61 (0.82-1.09) H 06/23/16 05:00 Problem List - Problems (1) Pelvic fluid collection Code(s): R18.8 - OTHER ASCITES (2) Septic shock Code(s): A41.9 - SEPSIS, UNSPECIFIED ORGANISM R65.21 - SEVERE SEPSIS WITH SEPTIC SHOCK Assessment/Plan Microbiology 06/15/16 15:45 Peritoneal Fluid Gram Stain - Final 06/15/16 15:45 Peritoneal Fluid Anaerobic Culture - Final Prevotella Melaninogenica 06/15/16 15:45 Peritoneal Fluid Gram Stain - Final 06/15/16 05:00 Nasopharyngeal Swab Influenza Types A,B Antigen (PEDRO) - Final 06/15/16 05:00 Nasopharyngeal Swab - Final 06/15/16 02:50 Blood - Peripheral Venous Blood Culture - Final NO GROWTH AFTER 5 DAYS INCUBATION 06/15/16 01:56 Urine - Urine Ennis Urine Culture - Final Pseudomonas Aeruginosa 06/15/16 15:45 Peritoneal Fluid Body Fluid Culture - Preliminary NO AEROBIC GROWTH, 24 HRS 06/15/16 05:00 Nasopharyngeal Swab Respiratory Virus Panel - Preliminary 06/15/16 02:50 Blood - Peripheral Venous Blood Culture - Preliminary NO GROWTH OBTAINED AFTER 72 HOURS, INCUBATION TO CONTINUE FOR 2 DAYS. 06/15/16 01:30 Blood - Peripheral Venous Blood Culture - Preliminary NO GROWTH OBTAINED AFTER 72 HOURS, INCUBATION TO CONTINUE FOR 2 DAYS. Laboratory Tests 06/20/16 06/23/16 06/23/16 05:35 05:00 05:00 WBC 36.7 H* D 16.0 H Hgb 8.9 L Hct 27.2 L Plt Count 421 BUN 19 H Creatinine 0.6 Assessment Pelvic abscess source ? uterus vs bowel unclear but not a surgical candidate From ID standpoint improving No fever WBC coming down culture treated no sepsis Plan Renew current antibiotics CBC ESR and CRP Examined this am with Dr Rogeloi Ferris MD
[2016-06-23] MEDS ORDERED: PT OWN MED DRAWER 7, Y5N ONE (09:14)
[2016-06-23] MEDS: MULTIVITAMINS (DAILY MVI) TABLET (FP) PO SCH (09:26)
[2016-06-23] MEDS: ASCORBIC ACID 500 MG TABLET (FP) PO SCH (09:26)
[2016-06-23] MEDS: METOPROLOL TARTRATE 25 MG TABLET (FP) PO SCH ×2 (09:26→21:22)
[2016-06-23] MEDS: LACTOBACILLUS ACIDOPHILUS 1 EACH TAB (FP) PO SCH (09:26)
[2016-06-23] MEDS: ENOXAPARIN NA (PORCINE) 60 MG/0.6 ML DISP.SYRIN SQ SCH ×2 (09:26→21:22)
[2016-06-23] MEDS: FOLIC ACID 1 MG TABLET (FP) PO SCH (09:26)
[2016-06-23] MEDS: NAPH,MB-DB/K PH,MBDB POWDER PACKET PO SCH (09:26)
[2016-06-23] MEDS: FERROUS SO4 325 MG TABLET (FP) PO SCH (09:26)
[2016-06-23] MEDS: guaiFENesin 600 MG TABLET.ER (FP) PO SCH ×2 (09:27→21:22)
--- NOTE | 2016-06-23 09:27 | PN ---
Progress Note, Physician - Current Medication List Current Medications: Active Medications Acetaminophen (Tylenol -) 650 mg PO Q6H PRN PRN Reason: FEVER OR PAIN Last Admin: 06/19/16 22:23 Dose: 650 mg Amino Acids (Prosource No Carb Liquid Pkt) 30 ml PO BID@08,1730 [facility] Ascorbic Acid (Vitamin C -) 500 mg PO DAILY [facility] Last Admin: 06/22/16 11:49 Dose: 500 mg Clonazepam (Klonopin -) 0.5 mg PO TID [facility] Last Admin: 06/23/16 06:28 Dose: Not Given Clonidine HCl (Catapres Tts Patch -) 0.1 mg TD Q7D@1000 [facility] Cyanocobalamin (Vitamin B12 Injection -) 1,000 mcg IM DAILY [facility] Last Admin: 06/22/16 11:48 Dose: 1,000 mcg Digoxin (Lanoxin -) 0.125 mg PO Q2D [facility] Enoxaparin Sodium (Lovenox -) 60 mg SQ BID [facility] Last Admin: 06/22/16 21:29 Dose: 60 mg Ferrous Sulfate (Feosol -) 325 mg PO DAILY [facility] Last Admin: 06/22/16 11:46 Dose: 325 mg Folic Acid (Folic Acid -) 1 mg PO DAILY [facility] Last Admin: 06/22/16 11:46 Dose: 1 mg Guaifenesin (Mucinex -) 600 mg PO BID [facility] Last Admin: 06/22/16 21:29 Dose: 600 mg Ceftriaxone Sodium (Rocephin 2gm Ivpb (Pre-Docked)) 100 mls @ 200 mls/hr IVPB DAILY [facility] Last Admin: 06/22/16 11:50 Dose: 200 mls/hr Metronidazole (Flagyl 500mg Premixed Ivpb -) 100 mls @ 100 mls/hr IVPB Q8H-IV [facility] Last Admin: 06/23/16 02:40 Dose: 100 mls/hr Amino Acids (Clinimix -) 1,000 mls @ 42 mls/hr IV ASDIR [facility] Last Admin: 06/22/16 12:43 Dose: 42 mls/hr Lactobacillus Acidophilus (Bacid -) 1 tab PO DAILY [facility] Last Admin: 06/22/16 11:46 Dose: 1 tab Metoprolol Tartrate (Lopressor Injection -) 5 mg IVPUSH Q4H PRN PRN Reason: HYPERTENSION Last Admin: 06/18/16 06:00 Dose: 5 mg Metoprolol Tartrate (Lopressor -) 25 mg PO BID [facility] Last Admin: 06/22/16 21:29 Dose: 25 mg Multivitamins/Minerals/Vitamin C (Tab-A-Vit -) 1 tab PO DAILY [facility] Last Admin: 06/22/16 11:45 Dose: 1 tab Ondansetron HCl (Zofran Injection) 4 mg IVPB Q6H PRN PRN Reason: NAUSEA Potassium Phos/Sodium Phos (Phos-Nak Packet -) 1 packet PO DAILY [facility] Last Admin: 06/22/16 11:48 Dose: 1 packet - Objective Vital Signs: Vital Signs Temperature 99.5 F 06/23/16 06:00 Pulse Rate 79 06/23/16 08:00 Respiratory Rate 18 06/23/16 08:00 Blood Pressure 121/60 06/23/16 08:00 O2 Sat by Pulse Oximetry (%) 99 06/22/16 20:08 Cardiovascular: Yes: S1, S2 Respiratory: Yes: Regular, CTA Bilaterally Gastrointestinal: Yes: Normal Bowel Sounds, Soft Labs: CBC, BMP 06/23/16 05:00 06/23/16 05:00 INR, PTT INR 1.61 (0.82-1.09) H 06/23/16 05:00 Problem List - Problems (1) Sepsis Assessment/Plan: IV ABX MONITOR LABS Code(s): A41.9 - SEPSIS, UNSPECIFIED ORGANISM Qualifiers: Sepsis type: Escherichia coli Qualified Code(s): A41.51 - Sepsis due to Escherichia coli [E. coli] (2) Uterine abscess Assessment/Plan: IR/[employer] SUPERVISOR FOLLOW ---POSSIBLE DRAIN Code(s): N71.9 - INFLAMMATORY DISEASE OF UTERUS, UNSPECIFIED (3) Anemia Assessment/Plan: MONITOR LABS Code(s): D64.9 - ANEMIA, UNSPECIFIED Qualifiers: Other causes of anemia: chronic disease, other
[2016-06-23 09:35] LABS: C-REACTIVE PROTEIN 8.5 MG/DL (0.00-0.3)
[2016-06-23] MEDS: CEFTRIAXONE 100 ML IVPB SCH (09:44)
[2016-06-23] MEDS: CYANOCOBALAMIN (VITAMIN B-12) 1000 MCG/1 ML VIAL IM SCH (09:44)
[2016-06-23] MEDS ORDERED: cloNIDine-TTS 0.1 MG/24 HRS PATCH.TDWK TD SCH ×2 (10:00)
[2016-06-23] MEDS ORDERED: ONDANSETRON 4 MG/2 ML VIAL IVPB PRN (12:18)
[2016-06-23] MEDS ORDERED: METOPROLOL TARTRATE 5 MG/5 ML VIAL IVPUSH PRN (12:18)
[2016-06-23] MEDS ORDERED: ACETAMINOPHEN 325 MG TABLET (FP) PO PRN (12:18)
--- NOTE | 2016-06-23 12:20 | PN ---
Physical Exam: SUBJECTIVE: Patient seen and examined at bedside in the ICU. Her mental status is much improved. No acute event noted and remained afrebile overnight. Denied sob, abd pain, fever, chills, n/v, urinary or bowel sx. OBJECTIVE: Vital Signs Period Temp Pulse Resp BP Sys/Aplafox Pulse Ox Last 24 Hr 98.7 F-99.9 F 68-92 18-28 94-134/43-74 96-99 GENERAL: weak, lethargic, somnolent, breathing via NC no apparent cardiopulmonary distress HEAD: AT/NC EYES: Pupils equal, round and reactive to light, extraocular movements intact, sclera anicteric, conjunctiva clear. LUNGS: bilateral rhonchi HEART: Irregularly irregular, S1 and S2 without murmur, rub or gallop. ABDOMEN: Soft, nontender, not distended, normoactive bowel sounds, no guarding, no rebound, no masses, JES drain in place, clean dressing EXTREMITIES: Bilateral chronic venous statis with no apparent lesions. No calf tenderness. No peripheral edema. NEUROLOGICAL: Cranial nerves II-XII intact, 5/5 strength in all limbs and intact sensation Laboratory Results - last 24 hr 06/23/16 06/23/16 06/23/16 05:00 05:00 05:00 WBC 16.0 H RBC 3.16 L Hgb 8.9 L Hct 27.2 L MCV 86.1 MCHC 32.6 RDW 14.9 Plt Count 421 MPV 7.0 L INR 1.61 H Sodium 140 Potassium 3.2 L Chloride 102 Carbon Dioxide 29 Anion Gap 9 BUN 19 H Creatinine 0.6 Creat Clearance w eGFR > 60 Random Glucose 100 Calcium 7.4 L Phosphorus 1.9 L D Magnesium 2.0 Total Bilirubin 0.3 D AST 13 L D ALT 16 Alkaline Phosphatase 58 C-Reactive Protein 8.5 H D Total Protein 4.7 L Albumin 1.6 L 06/23/16 05:00 WBC RBC Hgb Hct MCV MCHC RDW Plt Count MPV INR Sodium Potassium Chloride Carbon Dioxide Anion Gap BUN Creatinine Creat Clearance w eGFR Random Glucose Calcium Phosphorus Magnesium Total Bilirubin AST ALT Alkaline Phosphatase C-Reactive Protein Cancelled Total Protein Albumin Active Medications Generic Name Dose Route Start Last Admin Trade Name Freq PRN Reason Stop Dose Admin Acetaminophen 650 mg 06/17/16 22:06 06/19/16 22:23 Tylenol - PO 650 mg Q6H PRN Administration FEVER OR PAIN Amino Acids 30 ml 06/23/16 08:00 06/23/16 09:25 Prosource No Carb Liquid Pkt PO 30 ml BID@08,1730 DANA Administration Ascorbic Acid 500 mg 06/18/16 10:00 06/23/16 09:26 Vitamin C - PO 500 mg DAILY DANA Administration Clonazepam 0.5 mg 06/18/16 14:00 06/23/16 06:28 Klonopin - PO Not Given TID DANA Clonidine HCl 0.1 mg 06/23/16 10:00 06/23/16 09:37 Catapres Tts Patch - TD 0.1 mg Q7D@1000 DANA Administration Cyanocobalamin 1,000 mcg 06/18/16 10:00 06/23/16 09:44 Vitamin B12 Injection - IM 1,000 mcg DAILY DANA Administration Digoxin 0.125 mg 06/24/16 10:00 Lanoxin - PO Q2D DANA Enoxaparin Sodium 60 mg 06/20/16 22:00 06/23/16 09:26 Lovenox - SQ 60 mg BID DANA Administration Ferrous Sulfate 325 mg 06/18/16 10:00 06/23/16 09:26 Feosol - PO 325 mg DAILY DANA Administration Folic Acid 1 mg 06/18/16 10:00 06/23/16 09:26 Folic Acid - PO 1 mg DAILY DANA Administration Guaifenesin 600 mg 06/22/16 22:00 06/23/16 09:27 Mucinex - PO 600 mg BID DANA Administration Ceftriaxone Sodium 100 mls @ 200 mls/hr 06/18/16 10:00 06/23/16 09:44 Rocephin 2gm Ivpb (Pre-Docked) IVPB 200 mls/hr DAILY DANA Administration Metronidazole 100 mls @ 100 mls/hr 06/17/16 18:00 06/23/16 09:38 Flagyl 500mg Premixed Ivpb - IVPB 100 mls/hr Q8H-IV DANA Administration Amino Acids 1,000 mls @ 42 mls/hr 06/21/16 12:00 06/22/16 12:43 Clinimix - IV 42 mls/hr ASDIR DANA Administration Potassium Phosphate 40 mm/ 263.3333 mls @ 62.5 mls/hr 06/23/16 11:54 Dextrose IVPB 06/23/16 16:06 ONCE ONE Lactobacillus Acidophilus 1 tab 06/18/16 10:00 06/23/16 09:26 Bacid - PO 1 tab DAILY DANA Administration Metoprolol Tartrate 5 mg 06/17/16 16:31 06/18/16 06:00 Lopressor Injection - IVPUSH 5 mg Q4H PRN Administration HYPERTENSION Metoprolol Tartrate 25 mg 06/19/16 10:00 06/23/16 09:26 Lopressor - PO 25 mg BID DANA Administration Multivitamins/Minerals/Vitamin C 1 tab 06/18/16 10:00 06/23/16 09:26 Tab-A-Vit - PO 1 tab DAILY DANA Administration Ondansetron HCl 4 mg 06/17/16 16:31 Zofran Injection IVPB Q6H PRN NAUSEA Potassium Phos/Sodium Phos 1 packet 06/18/16 10:00 06/23/16 09:26 Phos-Nak Packet - PO 1 packet DAILY DANA Administration Imaging: CXR: developing bilateral pleural effusion ASSESSMENT/PLAN: 80 yo F with h/o HTN, HLD, a-fib on Eliquis, dementia and anxiety admitted to ICU for sepsis 2/2 pelvic abscess s/p exploratory laparotomy, abdominal washout , and drainage of intraabdominal absces ID - sepsis 2/2 pelvic abscess - afrebile and WBC trended down - cont. current abx Pulm - mucinex 600mg BID - CXR shows b/l pleural effusion Cardio - stable GI - hold off surgical intervention - will re-consult IR for percutanous drainage if abx fails Renal/ - hypokalemia and hypophosphotemia, replete with KCl 20mm IVPB - vasques in place - monitor I/O Heme - trend CBC Prophylaxis - DVT: SCD - GI: eating, not indicated Nutrition - soft diet Dispo: transfer to med-surg Visit type - Emergency Visit Emergency Visit: No - New Patient This patient is new to me today: No - Critical Care Critical Care patient: Yes Total Critical Care Time (in minutes): 35 Critical Care Statement: The care of this patient involved high complexity decision making to prevent further life threatening deterioration of the patient 's condition and/or to evalute & treat vital organ system(s) failure or risk of failure.
--- NOTE | 2016-06-23 12:32 | PN ---
Teaching Attending Note Name of Resident: Tejinder Bingham ATTENDING PHYSICIAN STATEMENT I saw and evaluated the patient. I reviewed the resident's note and discussed the case with the resident. I agree with the resident's findings and plan as documented. SUBJECTIVE: Pt seen and examined in the ICU. Denies abdominal pain. No fevers recorded. OBJECTIVE: Last Vital Signs Temp Pulse Resp BP Pulse Ox 98.7 F 79 18 125/69 99 06/23/16 10:00 06/23/16 10:00 06/23/16 10:00 06/23/16 10:00 06/22/16 20:08 Intake & Output 06/20/16 06/21/16 06/22/16 06/23/16 23:59 23:59 23:59 23:59 Intake Total 676 164 6709 100 Output Total 1360 1900 1080 700 Balance -1260 -1182 876 -600 Weight 135 lb 6.4 oz 124 lb 5.451 oz Gen: NAD at rest, chronically ill appearing Heart: RRR Lung: decreased breath sounds at the bases Abd: soft, nontender, dressings dry, +JES with purulent drainage Ext: + trace edema CBC, BMP 06/23/16 05:00 06/23/16 05:00 Active Medications Acetaminophen (Tylenol -) 650 mg PO Q6H PRN PRN Reason: FEVER OR PAIN Amino Acids (Prosource No Carb Liquid Pkt) 30 ml PO BID@08,1730 [facility] Ascorbic Acid (Vitamin C -) 500 mg PO DAILY [facility] Clonazepam (Klonopin -) 0.5 mg PO TID DANA Clonidine HCl (Catapres Tts Patch -) 0.1 mg TD Q7D@1000 [facility] Cyanocobalamin (Vitamin B12 Injection -) 1,000 mcg IM DAILY [facility]NA Digoxin (Lanoxin -) 0.125 mg PO Q2D DANA Enoxaparin Sodium (Lovenox -) 60 mg SQ BID DANA Ferrous Sulfate (Feosol -) 325 mg PO DAILY [facility] Folic Acid (Folic Acid -) 1 mg PO DAILY DANA Guaifenesin (Mucinex -) 600 mg PO BID DANA Potassium Phosphate 40 mm/ (Dextrose) 263.3333 mls @ 62.5 mls/hr IVPB ONCE ONE Stop: 06/23/16 16:06 Amino Acids (Clinimix -) 1,000 mls @ 42 mls/hr IV ASDIR DANA Ceftriaxone Sodium (Rocephin 2gm Ivpb (Pre-Docked)) 100 mls @ 200 mls/hr IVPB DAILY [facility] Metronidazole (Flagyl 500mg Premixed Ivpb -) 100 mls @ 100 mls/hr IVPB Q8H-IV [facility] Lactobacillus Acidophilus (Bacid -) 1 tab PO DAILY [facility] Metoprolol Tartrate (Lopressor -) 25 mg PO BID DANA Metoprolol Tartrate (Lopressor Injection -) 5 mg IVPUSH Q4H PRN PRN Reason: HYPERTENSION Multivitamins/Minerals/Vitamin C (Tab-A-Vit -) 1 tab PO DAILY [facility] Ondansetron HCl (Zofran Injection) 4 mg IVPB Q6H PRN PRN Reason: NAUSEA Potassium Phos/Sodium Phos (Phos-Nak Packet -) 1 packet PO DAILY [facility] ASSESSMENT AND PLAN: Perforated Uterus Intra-abdominal Abscess s/p ex-lap/Abscess drainage/washout/enterotomy with SB fecalith removal/primary repair Sepsis Atrial Fibrillation HTN Anxiety Dementia - continue antibiotics - monitor drain output - continue clinimix - rate controlled - continue anticoagulation - PO per surgery - pain control - DVT prophylaxis - can monitor on floor - continue discussions regarding goals of care and advanced directives
[2016-06-23] MEDS ORDERED: POTASSIUM PHOSPHATE 40 MM in DEXTROSE 5%-WATER - 250 ML IVPB ONE (13:00)
[2016-06-23] MEDS: POTASSIUM PHOSPHATE 40 MM in DEXTROSE 5%-WATER - 500 ML IVPB ONE ×2 (13:15→14:45)
--- NOTE | 2016-06-23 13:45 | PN ---
[id number] Discussed with nurse, patient being transferred back to floor. Patient denies abdominal pain. Tolerating diet, denies nausea/vomiting. Denies fever/chills. Last Vital Signs Temp Pulse Resp BP Pulse Ox 98.7 F 77 18 133/68 100 06/23/16 10:00 06/23/16 12:34 06/23/16 12:00 06/23/16 12:00 06/23/16 12:34 CBC, BMP 06/23/16 05:00 06/23/16 05:00 JES: 130 ml recorded yesterday Exam: Gen: NAD Abd: soft, nondistended, nontender to palp, midline incision healing well with some guanakito, clean, dry, packing and dressing changed per nursing, JES drain in place with green/purulent drainage <Angella Mcghee - Last Filed: 06/23/16 13:54> - Note Progress Note: Agree In depth conversation had last evening with the family, Ob/Gyn Physician and IR No surgery at this time Did not want IR drainage either due to the risks The family wanted to manage conservatively by following the JES drain and continuing with antibiotics WBC improved- now 16 Continue antibiotics F/U drain <Jace Wayne - Last Filed: 06/23/16 14:43> Problem List - Problems (1) Intra-abdominal abscess Code(s): K65.1 - PERITONEAL ABSCESS (2) Pelvic fluid collection Assessment/Plan: POD#8 s/p s/p exploratory laparotomy, perforated uterus w/ purulent discharge noted, abdominal washout, excisional uterine mass bx, enterotomy, removal of fecalith with primary repair WBC improving- Per RESTORATION ECOLOGIST/IR/ID pt being managed with IV abx Monitor WBC and JES output Abdominal wound healing well, continue dressing changes Replete electrolytes Pain control Code(s): R18.8 - OTHER ASCITES <Angella Mcghee - Last Filed: 06/23/16 13:54> - Problems (1) HTN (hypertension) Code(s): I10 - ESSENTIAL (PRIMARY) HYPERTENSION Qualifiers: Hypertension type: essential hypertension Qualified Code(s): I10 - Essential (primary) hypertension (2) Renal insufficiency Code(s): N28.9 - DISORDER OF KIDNEY AND URETER, UNSPECIFIED (3) Sepsis Code(s): A41.9 - SEPSIS, UNSPECIFIED ORGANISM Qualifiers: Sepsis type: Escherichia coli Qualified Code(s): A41.51 - Sepsis due to Escherichia coli [E. coli] (4) Bowel perforation Code(s): K63.1 - PERFORATION OF INTESTINE (NONTRAUMATIC) (5) Intra-abdominal abscess Code(s): K65.1 - PERITONEAL ABSCESS <Jace Wayne - Last Filed: 06/23/16 14:43>
[2016-06-23] MEDS: AMINO ACIDS 4.25%/D5W 1,000 ML IV SCH ×2 (14:05→19:57)
[2016-06-23] MEDS: AMINO ACIDS/PROTEIN HYDROLYS 30 ML LIQUID.PKT PO SCH (17:10)
--- NOTE | 2016-06-23 18:29 | PN ---
Progress Note (SOAP) - Subjective Chief Complaint: I saw the pt this morning when she was in the ICU. She denies pain or any complaints. (+) flatus, tolerating diet, no Nausea/vomiting. History of Present Illness: POD#8 s/p explor laparotomy, drainage of abd/pelvic abscess, enterotomy. JES drain in situ with purulent drainage. WBC declined today. - Current Medications Current Medications: Active Medications Acetaminophen (Tylenol -) 650 mg PO Q6H PRN PRN Reason: FEVER OR PAIN Amino Acids (Prosource No Carb Liquid Pkt) 30 ml PO BID@0800,1730 [facility] Last Admin: 06/23/16 17:10 Dose: 30 ml Ascorbic Acid (Vitamin C -) 500 mg PO DAILY [facility] Clonazepam (Klonopin -) 0.5 mg PO TID [facility] Last Admin: 06/23/16 14:16 Dose: 0.5 mg Clonidine HCl (Catapres Tts Patch -) 0.1 mg TD Q7D@1000 [facility] Cyanocobalamin (Vitamin B12 Injection -) 1,000 mcg IM DAILY [facility] Digoxin (Lanoxin -) 0.125 mg PO Q2D [facility] Enoxaparin Sodium (Lovenox -) 60 mg SQ BID [facility] Ferrous Sulfate (Feosol -) 325 mg PO DAILY@0800 [facility] Folic Acid (Folic Acid -) 1 mg PO DAILY [facility] Guaifenesin (Mucinex -) 600 mg PO BID [facility] Amino Acids (Clinimix -) 1,000 mls @ 42 mls/hr IV ASDIR [facility] Last Admin: 06/23/16 14:05 Dose: 42 mls/hr Ceftriaxone Sodium (Rocephin 2gm Ivpb (Pre-Docked)) 100 mls @ 200 mls/hr IVPB DAILY [facility] Metronidazole (Flagyl 500mg Premixed Ivpb -) 100 mls @ 100 mls/hr IVPB Q8H-IV [facility] Last Admin: 06/23/16 17:10 Dose: 100 mls/hr Potassium Phosphate 40 mm/ (Dextrose) 513.3333 mls @ 85.556 mls/hr IVPB ONCE ONE Stop: 06/23/16 18:59 Last Admin: 06/23/16 14:45 Dose: 85.556 mls/hr Lactobacillus Acidophilus (Bacid -) 1 tab PO DAILY [facility] Metoprolol Tartrate (Lopressor -) 25 mg PO BID [facility] Metoprolol Tartrate (Lopressor Injection -) 5 mg IVPUSH Q4H PRN PRN Reason: HYPERTENSION Multivitamins/Minerals/Vitamin C (Tab-A-Vit -) 1 tab PO DAILY [facility] Ondansetron HCl (Zofran Injection) 4 mg IVPB Q6H PRN PRN Reason: NAUSEA Potassium Phos/Sodium Phos (Phos-Nak Packet -) 1 packet PO DAILY [facility] - Objective Vital Signs: Vital Signs Temperature 98.8 F 06/23/16 16:15 Pulse Rate 86 06/23/16 16:15 Respiratory Rate 18 06/23/16 16:15 Blood Pressure 124/52 06/23/16 16:15 O2 Sat by Pulse Oximetry (%) 100 06/23/16 12:34 Constitutional: Yes: No Distress, Calm, Pallor Eyes: Yes: Conjunctiva Clear HENT: Yes: Atraumatic, Normocephalic Neck: Yes: Supple, Trachea Midline Cardiovascular: Yes: Regular Rate and Rhythm Gastrointestinal: Yes: Normal Bowel Sounds, Soft ...Rectal Exam: Yes: Deferred Genitourinary: Yes: WNL Musculoskeletal: Yes: Muscle Weakness Extremities: Yes: WNL Edema: No Integumentary: Yes: WNL, Bruising Wound/Incision: Yes: Clean/Dry, Dressing Dry and Intact, Other (granulating well , packing in place) Neurological: Yes: Confusion, Lethargy Labs Lab Results: CBC, BMP 06/23/16 05:00 06/23/16 05:00 Problem List - Problems (1) Pelvic fluid collection Code(s): R18.8 - OTHER ASCITES (2) PID (acute pelvic inflammatory disease) Assessment/Plan: Drain is producing purulent exudate. Pt is afebrile and the WBC is trending down. Continue Abx and JES drain. Code(s): N73.0 - ACUTE PARAMETRITIS AND PELVIC CELLULITIS (3) Anemia Code(s): D64.9 - ANEMIA, UNSPECIFIED Qualifiers: Other causes of anemia: chronic disease, other (4) Uterine abscess Code(s): N71.9 - INFLAMMATORY DISEASE OF UTERUS, UNSPECIFIED (5) Leukocytosis Assessment/Plan: WBC is improving. Pt is afebrile. Plan to continue IV abx. Code(s): D72.829 - ELEVATED WHITE BLOOD CELL COUNT, UNSPECIFIED Assessment/Plan DVT prophylaxis: dropping Hct noted. Doubt active bleeding. Consider restarting prophylactic Heparin.
[2016-06-23] MEDS: AMINO ACIDS/PROTEIN HYDROLYS SUGAR-FREE 30 ML PACKET PO SCH (19:58)
[2016-06-24] MEDS: METRONIDAZOLE 500 MG PREMIXED 100 ML IVPB SCH ×3 (02:05→17:10)
[2016-06-24] MEDS: clonazePAM 0.5 MG TABLET PO SCH ×3 (06:07→22:23)
[2016-06-24] MEDS ORDERED: PT OWN MED DRAWER 7, Y5N ONE (08:18)
[2016-06-24] MEDS: FERROUS SO4 325 MG TABLET (FP) PO SCH (08:29)
[2016-06-24] MEDS: AMINO ACIDS/PROTEIN HYDROLYS 30 ML LIQUID.PKT PO SCH ×2 (08:29→17:05)
--- NOTE | 2016-06-24 08:47 | PN ---
Progress Note, Physician Chief Complaint: Pt denies chest or abdominal pain. Has little appetite. History of Present Illness: 80yr old white woman presented to ED via EMS from [facility] with c/ o abd pain. According to patient son, patient has been having abd pain all day starting at 6pm, pain progressed at 1015pm- patient given oxycontin with no relief- patient sent to this ED for evaluation. Son inform display card writer that patient recently admitted May 27 for "blood infection" and d/c to [facility] for rehab but has not gotten out of bed per son. Patient also has not had a BM today. Denies any other complaints at this time. - Current Medication List Current Medications: Active Medications Acetaminophen (Tylenol -) 650 mg PO Q6H PRN PRN Reason: FEVER OR PAIN Amino Acids (Prosource No Carb Liquid Pkt) 30 ml PO BID@0800,1730 [facility] Last Admin: 06/24/16 08:29 Dose: 30 ml Ascorbic Acid (Vitamin C -) 500 mg PO DAILY [facility] Clonazepam (Klonopin -) 0.5 mg PO TID [facility] Last Admin: 06/24/16 06:07 Dose: 0.5 mg Clonidine HCl (Catapres Tts Patch -) 0.1 mg TD Q7D@1000 [facility] Cyanocobalamin (Vitamin B12 Injection -) 1,000 mcg IM DAILY [facility] Digoxin (Lanoxin -) 0.125 mg PO Q2D [facility] Enoxaparin Sodium (Lovenox -) 60 mg SQ BID [facility] Last Admin: 06/23/16 21:22 Dose: 60 mg Ferrous Sulfate (Feosol -) 325 mg PO DAILY@0800 [facility] Last Admin: 06/24/16 08:29 Dose: 325 mg Folic Acid (Folic Acid -) 1 mg PO DAILY [facility] Guaifenesin (Mucinex -) 600 mg PO BID [facility] Last Admin: 06/23/16 21:22 Dose: 600 mg Amino Acids (Clinimix -) 1,000 mls @ 42 mls/hr IV ASDIR [facility] Last Admin: 06/23/16 14:05 Dose: 42 mls/hr Ceftriaxone Sodium (Rocephin 2gm Ivpb (Pre-Docked)) 100 mls @ 200 mls/hr IVPB DAILY [facility] Metronidazole (Flagyl 500mg Premixed Ivpb -) 100 mls @ 100 mls/hr IVPB Q8H-IV [facility] Last Admin: 06/24/16 02:05 Dose: 100 mls/hr Lactobacillus Acidophilus (Bacid -) 1 tab PO DAILY [facility] Metoprolol Tartrate (Lopressor -) 25 mg PO BID [facility] Last Admin: 06/23/16 21:22 Dose: 25 mg Metoprolol Tartrate (Lopressor Injection -) 5 mg IVPUSH Q4H PRN PRN Reason: HYPERTENSION Multivitamins/Minerals/Vitamin C (Tab-A-Vit -) 1 tab PO DAILY [facility] Ondansetron HCl (Zofran Injection) 4 mg IVPB Q6H PRN PRN Reason: NAUSEA Potassium Phos/Sodium Phos (Phos-Nak Packet -) 1 packet PO DAILY [facility] - Objective Vital Signs: Vital Signs Temperature 99.3 F 06/24/16 06:15 Pulse Rate 84 06/24/16 06:15 Respiratory Rate 18 06/24/16 06:15 Blood Pressure 136/65 06/24/16 06:15 O2 Sat by Pulse Oximetry (%) 99 06/23/16 22:00 Constitutional: Yes: Thin Eyes: Yes: WNL HENT: Yes: WNL, Other (poor dentition) Neck: Yes: WNL Cardiovascular: Yes: Pulse Irregular Respiratory: Yes: Regular Gastrointestinal: Yes: Soft ...Rectal Exam: Yes: Deferred Genitourinary: No: Anuria Breast(s): Yes: WNL Musculoskeletal: Yes: Muscle Weakness Extremities: Yes: Cool Edema: No Peripheral Pulses WNL: No Peripheral Pulses: Left Doralis Pedis: 1+, Right Dorsalis Pedis: 1+ Integumentary: Yes: Bruising Neurological: Yes: Alert, Oriented, Weakness Labs: CBC, BMP 06/23/16 05:00 06/23/16 05:00 INR, PTT INR 1.61 (0.82-1.09) H 06/23/16 05:00 Abnormal Lab Results 06/20/16 06/24/16 16:50 13:15 WBC 15.4 H RBC 3.05 L Hgb 8.5 L Hct 26.5 L MPV 6.9 L Neutrophils % 84.9 H Lymphocytes % 7.3 L D Antibody Screen Positive H Crossmatch See Detail Problem List - Problems (1) Afib Assessment/Plan: Decreased digoxin to 0.125 mg every other day (level 1.47); keep level 0.5-1.0. Continue metoprlolol. On Lovenox until PO anticoagulation restarted. Replete electrolytes; f/u levels (K 3.2 yesterday). Code(s): I48.91 - UNSPECIFIED ATRIAL FIBRILLATION (2) Intra-abdominal abscess Assessment/Plan: Drainage f/u assessment with surgeon. As discussed with Dr. Cordon (Cdl Service Technician), pt is at high risk for hysterectomy; pt and family defer surgery presently. Code(s): K65.1 - PERITONEAL ABSCESS (3) Anxiety Code(s): F41.9 - ANXIETY DISORDER, UNSPECIFIED (4) HTN (hypertension) Assessment/Plan: On metoprolol, and clonidine restarted. Risk of rebound hypertension when abruptly stopping clonidine (exacerbated when also on metoprolol). Code(s): I10 - ESSENTIAL (PRIMARY) HYPERTENSION Qualifiers: Hypertension type: essential hypertension Qualified Code(s): I10 - Essential (primary) hypertension (5) Sepsis Assessment/Plan: on antibiotics; followed by ID. Maintain hydration. LVEF WNL by ECHO. Code(s): A41.9 - SEPSIS, UNSPECIFIED ORGANISM Qualifiers: Sepsis type: Escherichia coli Qualified Code(s): A41.51 - Sepsis due to Escherichia coli [E. coli] (6) Anemia Code(s): D64.9 - ANEMIA, UNSPECIFIED Qualifiers: Other causes of anemia: chronic disease, other (7) GI tract abscess Code(s): K63.0 - ABSCESS OF INTESTINE
--- NOTE | 2016-06-24 09:45 | PN ---
Progress Note, Physician History of Present Illness: IN BED - Current Medication List Current Medications: Active Medications Acetaminophen (Tylenol -) 650 mg PO Q6H PRN PRN Reason: FEVER OR PAIN Amino Acids (Prosource No Carb Liquid Pkt) 30 ml PO BID@0800,1730 [facility] Last Admin: 06/24/16 08:29 Dose: 30 ml Ascorbic Acid (Vitamin C -) 500 mg PO DAILY [facility] Clonazepam (Klonopin -) 0.5 mg PO TID [facility] Last Admin: 06/24/16 06:07 Dose: 0.5 mg Clonidine HCl (Catapres Tts Patch -) 0.1 mg TD Q7D@1000 [facility] Cyanocobalamin (Vitamin B12 Injection -) 1,000 mcg IM DAILY [facility] Digoxin (Lanoxin -) 0.125 mg PO Q2D [facility] Enoxaparin Sodium (Lovenox -) 60 mg SQ BID [facility] Last Admin: 06/23/16 21:22 Dose: 60 mg Ferrous Sulfate (Feosol -) 325 mg PO DAILY@0800 [facility] Last Admin: 06/24/16 08:29 Dose: 325 mg Folic Acid (Folic Acid -) 1 mg PO DAILY [facility] Guaifenesin (Mucinex -) 600 mg PO BID [facility] Last Admin: 06/23/16 21:22 Dose: 600 mg Amino Acids (Clinimix -) 1,000 mls @ 42 mls/hr IV ASDIR [facility] Last Admin: 06/23/16 14:05 Dose: 42 mls/hr Ceftriaxone Sodium (Rocephin 2gm Ivpb (Pre-Docked)) 100 mls @ 200 mls/hr IVPB DAILY [facility] Metronidazole (Flagyl 500mg Premixed Ivpb -) 100 mls @ 100 mls/hr IVPB Q8H-IV [facility] Last Admin: 06/24/16 02:05 Dose: 100 mls/hr Lactobacillus Acidophilus (Bacid -) 1 tab PO DAILY [facility] Metoprolol Tartrate (Lopressor -) 25 mg PO BID [facility] Last Admin: 06/23/16 21:22 Dose: 25 mg Metoprolol Tartrate (Lopressor Injection -) 5 mg IVPUSH Q4H PRN PRN Reason: HYPERTENSION Multivitamins/Minerals/Vitamin C (Tab-A-Vit -) 1 tab PO DAILY [facility] Ondansetron HCl (Zofran Injection) 4 mg IVPB Q6H PRN PRN Reason: NAUSEA Potassium Phos/Sodium Phos (Phos-Nak Packet -) 1 packet PO DAILY [facility] - Objective Vital Signs: Vital Signs Temperature 99.3 F 06/24/16 06:15 Pulse Rate 84 06/24/16 06:15 Respiratory Rate 18 06/24/16 06:15 Blood Pressure 136/65 06/24/16 06:15 O2 Sat by Pulse Oximetry (%) 99 06/23/16 22:00 Cardiovascular: Yes: Regular Rate and Rhythm Respiratory: Yes: Regular, CTA Bilaterally Gastrointestinal: Yes: Normal Bowel Sounds, Soft. No: Tenderness Labs: CBC, BMP 06/23/16 05:00 06/23/16 05:00 INR, PTT INR 1.61 (0.82-1.09) H 06/23/16 05:00 Problem List - Problems (1) Sepsis Assessment/Plan: IV ABX MONITOR LABS Code(s): A41.9 - SEPSIS, UNSPECIFIED ORGANISM Qualifiers: Sepsis type: Escherichia coli Qualified Code(s): A41.51 - Sepsis due to Escherichia coli [E. coli] (2) Uterine abscess Assessment/Plan: IR/QUOTER FOLLOW ---ABX ID ON CASE Code(s): N71.9 - INFLAMMATORY DISEASE OF UTERUS, UNSPECIFIED (3) Anemia Assessment/Plan: MONITOR LABS Code(s): D64.9 - ANEMIA, UNSPECIFIED Qualifiers: Other causes of anemia: chronic disease, other
[2016-06-24] MEDS ORDERED: DIGOXIN 0.125 MG TABLET (FP) PO SCH (10:00)
--- NOTE | 2016-06-24 10:22 | PN ---
Progress Note (short form) - Note Progress Note: NAD Vital Signs Period Temp Pulse Resp BP Sys/Palafox Pulse Ox Last 24 Hr 98.8 F-99.3 F 77-86 18-18 124-136/52-68 99-100 cor-rrr lungs decreased bs at bases abd soft, incision with some scant drainage on the guaze eagle drain with pus ext no edema CBC, BMP 06/23/16 05:00 06/23/16 05:00 Microbiology 06/23/16 09:55 Blood Culture - Preliminary Blood - Peripheral Venous NO GROWTH OBTAINED AFTER 24 HOURS, INCUBATION TO CONTINUE FOR 4 DAYS. 06/23/16 09:55 Blood Culture - Preliminary Blood - Peripheral Venous NO GROWTH OBTAINED AFTER 24 HOURS, INCUBATION TO CONTINUE FOR 4 DAYS. a/p s/p drainage of intraabdominal abscess continue ceftriaxone and flagyl f/u labs
[2016-06-24] MEDS: LACTOBACILLUS ACIDOPHILUS 1 EACH TAB (FP) PO SCH (10:41)
[2016-06-24] MEDS: FOLIC ACID 1 MG TABLET (FP) PO SCH (10:42)
[2016-06-24] MEDS: METOPROLOL TARTRATE 25 MG TABLET (FP) PO SCH ×2 (10:42→22:22)
[2016-06-24] MEDS: DIGOXIN 0.125 MG TABLET (FP) PO SCH (10:42)
[2016-06-24] MEDS: ENOXAPARIN NA (PORCINE) 60 MG/0.6 ML DISP.SYRIN SQ SCH ×2 (10:42→22:22)
[2016-06-24] MEDS: NAPH,MB-DB/K PH,MBDB POWDER PACKET PO SCH (10:43)
[2016-06-24] MEDS: guaiFENesin 600 MG TABLET.ER (FP) PO SCH ×2 (10:43→22:23)
[2016-06-24] MEDS: MULTIVITAMINS (DAILY MVI) TABLET (FP) PO SCH (10:43)
[2016-06-24] MEDS: ASCORBIC ACID 500 MG TABLET (FP) PO SCH (10:43)
[2016-06-24] MEDS: CYANOCOBALAMIN (VITAMIN B-12) 1000 MCG/1 ML VIAL IM SCH (10:43)
[2016-06-24] MEDS: CEFTRIAXONE 2G/100 ML IVPB SCH (11:38)
[2016-06-24 13:30] LABS: BASOPHIL 0.3 % (0-2.0); EOSINOPHIL 0.5 % (0-4.5); MCH 27.9 pg (25.7-33.7); MCHC 32.2 g/dl (32.0-36.0); MEAN CELL VOLUME 86.9 fl (80-96); MEAN PLT VOLUME 6.9 fl (7.5-11.1); NEUTROPHILS 84.9 % (42.8-82.8); PLATELET COUNT 322 K/MM3 (134-434); RDW 14.9 % (11.6-15.6); WHITE BLOOD COUNT 15.4 K/mm3 (4.0-10.0)
--- NOTE | 2016-06-24 13:30 | PN ---
Progress Note (short form) - Note Progress Note: No acute events On diet Pain controlled Vital Signs - 24 hr 06/23/16 06/23/16 06/23/16 16:15 21:00 22:00 Temperature 98.8 F Pulse Rate 86 Respiratory 18 18 Rate Blood Pressure 124/52 O2 Sat by Pulse 99 Oximetry (%) 06/24/16 06/24/16 06:15 10:42 Temperature 99.3 F Pulse Rate 84 100 H Respiratory 18 Rate Blood Pressure 136/65 O2 Sat by Pulse Oximetry (%) Abd soft, Jason in place CBC, BMP 06/23/16 05:00 CBC WBC 16.0 K/mm3 (4.0-10.0) H 06/23/16 05:00 RBC 3.16 M/mm3 (3.60-5.2) L 06/23/16 05:00 Hgb 8.9 GM/dL (10.7-15.3) L 06/23/16 05:00 Hct 27.2 % (32.4-45.2) L 06/23/16 05:00 MCV 86.1 fl (80-96) 06/23/16 05:00 MCHC 32.6 g/dl (32.0-36.0) 06/23/16 05:00 RDW 14.9 % (11.6-15.6) 06/23/16 05:00 Plt Count 421 K/MM3 (134-434) 06/23/16 05:00 MPV 7.0 fl (7.5-11.1) L 06/23/16 05:00 Neutrophils % 87.9 % (42.8-82.8) H 06/21/16 14:56 Lymphocytes % 5.1 % (8-40) L 06/21/16 14:56 Monocytes % 6.6 % (3.8-10.2) 06/21/16 14:56 Eosinophils % 0.2 % (0-4.5) 06/21/16 14:56 Basophils % 0.2 % (0-2.0) 06/21/16 14:56 Band Neutrophils 1.0 % (0-10) D 06/21/16 05:45 Myelocytes 1 % (0-2) 06/15/16 17:30 Differential Comment Manual diff done 06/21/16 05:45 Platelet Estimate Adequate (NORMAL) 06/20/16 05:35 Platelet Comment No clumping noted 06/18/16 06:00 Platelet Comment No clotting detected 06/18/16 06:00 Hypochromic-Microcytic 1+ 06/18/16 06:00 Anisocytosis 1+ 06/18/16 06:00 Morphology Comment Slide scanned 06/15/16 17:30 CBC today Antibiotics per ID If WBC continues to improve, no further drain by Interventional Radiology needed If WBC starts to increase, may need further drainage by Interventional Radiology No further general surgery intervention Thank you Problem List - Problems (1) HTN (hypertension) Code(s): I10 - ESSENTIAL (PRIMARY) HYPERTENSION Qualifiers: Hypertension type: essential hypertension Qualified Code(s): I10 - Essential (primary) hypertension (2) Renal insufficiency Code(s): N28.9 - DISORDER OF KIDNEY AND URETER, UNSPECIFIED (3) Sepsis Code(s): A41.9 - SEPSIS, UNSPECIFIED ORGANISM Qualifiers: Sepsis type: Escherichia coli Qualified Code(s): A41.51 - Sepsis due to Escherichia coli [E. coli] (4) Bowel perforation Code(s): K63.1 - PERFORATION OF INTESTINE (NONTRAUMATIC) (5) Intra-abdominal abscess Code(s): K65.1 - PERITONEAL ABSCESS
[2016-06-24] MEDS: AMINO ACIDS 4.25%/D5W 1,000 ML IV SCH (17:14)
--- NOTE | 2016-06-24 17:54 | PN ---
Progress Note (SOAP) - Subjective Chief Complaint: Pt denies pain or any complaints. Lying in bed, (+) flatus, tolerating diet, no Nausea/vomiting. History of Present Illness: POD#9 s/p explor laparotomy, drainage of abd/pelvic abscess, enterotomy. JES drain in situ with purulent drainage. WBC again declined today. - Current Medications Current Medications: Active Medications Acetaminophen (Tylenol -) 650 mg PO Q6H PRN PRN Reason: FEVER OR PAIN Amino Acids (Prosource No Carb Liquid Pkt) 30 ml PO BID@0800,1730 [facility] Last Admin: 06/24/16 17:05 Dose: Not Given Ascorbic Acid (Vitamin C -) 500 mg PO DAILY [facility] Last Admin: 06/24/16 10:43 Dose: 500 mg Clonazepam (Klonopin -) 0.5 mg PO TID [facility] Last Admin: 06/24/16 13:45 Dose: 0.5 mg Clonidine HCl (Catapres Tts Patch -) 0.1 mg TD Q7D@1000 [facility] Cyanocobalamin (Vitamin B12 Injection -) 1,000 mcg IM DAILY [facility] Last Admin: 06/24/16 10:43 Dose: 1,000 mcg Digoxin (Lanoxin -) 0.125 mg PO Q2D [facility] Last Admin: 06/24/16 10:42 Dose: 0.125 mg Enoxaparin Sodium (Lovenox -) 60 mg SQ BID [facility] Last Admin: 06/24/16 10:42 Dose: 60 mg Ferrous Sulfate (Feosol -) 325 mg PO DAILY@0800 [facility] Last Admin: 06/24/16 08:29 Dose: 325 mg Folic Acid (Folic Acid -) 1 mg PO DAILY [facility] Last Admin: 06/24/16 10:42 Dose: 1 mg Guaifenesin (Mucinex -) 600 mg PO BID [facility] Last Admin: 06/24/16 10:43 Dose: 600 mg Amino Acids (Clinimix -) 1,000 mls @ 42 mls/hr IV ASDIR [facility] Last Admin: 06/24/16 17:14 Dose: 42 mls/hr Ceftriaxone Sodium (Rocephin 2gm Ivpb (Pre-Docked)) 100 mls @ 200 mls/hr IVPB DAILY [facility] Last Admin: 06/24/16 11:38 Dose: 200 mls/hr Metronidazole (Flagyl 500mg Premixed Ivpb -) 100 mls @ 100 mls/hr IVPB Q8H-IV [facility] Last Admin: 06/24/16 17:10 Dose: 100 mls/hr Lactobacillus Acidophilus (Bacid -) 1 tab PO DAILY [facility] Last Admin: 06/24/16 10:41 Dose: 1 tab Metoprolol Tartrate (Lopressor -) 25 mg PO BID [facility] Last Admin: 06/24/16 10:42 Dose: 25 mg Metoprolol Tartrate (Lopressor Injection -) 5 mg IVPUSH Q4H PRN PRN Reason: HYPERTENSION Multivitamins/Minerals/Vitamin C (Tab-A-Vit -) 1 tab PO DAILY [facility] Last Admin: 06/24/16 10:43 Dose: 1 tab Ondansetron HCl (Zofran Injection) 4 mg IVPB Q6H PRN PRN Reason: NAUSEA Potassium Phos/Sodium Phos (Phos-Nak Packet -) 1 packet PO DAILY [facility] Last Admin: 06/24/16 10:43 Dose: 1 packet - Objective Vital Signs: Vital Signs Temperature 98.6 F 06/24/16 14:01 Pulse Rate 85 06/24/16 14:33 Respiratory Rate 20 06/24/16 14:01 Blood Pressure 108/59 06/24/16 14:01 O2 Sat by Pulse Oximetry (%) 99 06/24/16 14:33 JES drain 10ml purulent material Constitutional: Yes: No Distress, Calm Eyes: Yes: Conjunctiva Clear HENT: Yes: Atraumatic Neck: Yes: Supple Cardiovascular: Yes: Regular Rate and Rhythm Respiratory: Yes: Regular, Diminished (at bases) Gastrointestinal: Yes: Normal Bowel Sounds, Soft Genitourinary: Yes: WNL Musculoskeletal: Yes: Muscle Weakness Peripheral Pulses WNL: Yes Edema: No Integumentary: Yes: Bruising Wound/Incision: Yes: Clean/Dry, Unapproximated (partially), Other (packing in place, granulating well.) Neurological: Yes: Oriented, Lethargy Psychiatric: Yes: Oriented Labs Lab Results: CBC, BMP 06/24/16 13:15 06/23/16 05:00 Problem List - Problems (1) Pelvic fluid collection Assessment/Plan: JES drain in situ. Continue JSE per surgery Code(s): R18.8 - OTHER ASCITES (2) PID (acute pelvic inflammatory disease) Assessment/Plan: Drain is producing purulent exudate. Pt is afebrile and the WBC is trending down. Continue Abx and JES drain. Code(s): N73.0 - ACUTE PARAMETRITIS AND PELVIC CELLULITIS (3) Anemia Assessment/Plan: No evidence of ongoing bleeding. Likely due to chronic dz and infection. Hct stable. Consider blood transfusion as needed. Code(s): D64.9 - ANEMIA, UNSPECIFIED Qualifiers: Other causes of anemia: chronic disease, other (4) Uterine abscess Assessment/Plan: This may be due to uterine or cervical malignancy vs other causes. Not a surgical candidate. Cont Abx Code(s): N71.9 - INFLAMMATORY DISEASE OF UTERUS, UNSPECIFIED (5) Leukocytosis Assessment/Plan: WBC is improving. Pt is afebrile. Plan to continue IV abx. Code(s): D72.829 - ELEVATED WHITE BLOOD CELL COUNT, UNSPECIFIED Assessment/Plan Spoke to pt's son today (Bulmaro Pop) updated him on clinical info and plan. He plans on requesting Dr. Oneal (or covering MD) to have interventional radiology consider another percutaneous drain under CT guidance. We reviewed the risks abd benefits, alternatives.
[2016-06-25] MEDS: METRONIDAZOLE 500 MG PREMIXED 100 ML IVPB SCH ×3 (03:07→17:06)
[2016-06-25] MEDS: clonazePAM 0.5 MG TABLET PO SCH ×3 (06:24→22:19)
[2016-06-25 07:38] LABS: BASOPHIL 0.5 % (0-2.0); EOSINOPHIL 1.8 % (0-4.5); MCH 28.4 pg (25.7-33.7); MCHC 32.2 g/dl (32.0-36.0); MEAN CELL VOLUME 88.2 fl (80-96); MEAN PLT VOLUME 7.4 fl (7.5-11.1); PLATELET COUNT 381 K/MM3 (134-434); RDW 14.6 % (11.6-15.6); WHITE BLOOD COUNT 17.2 K/mm3 (4.0-10.0)
[2016-06-25 08:08] LABS: ALBUMIN 1.9 g/dl (3.4-5.0); ANION GAP 8 (8-16); CALCIUM 7.8 mg/dL (8.5-10.1); CO2 28 mmol/L (21-32); CREATININE 0.7 mg/dL (0.55-1.02); GLUCOSE,RANDOM 87 mg/dL (74-106); SGOT/AST 20 U/L (15-37); SGPT/ALT 15 U/L (12-78)
[2016-06-25 08:10] LABS: ALK PHOS 64 U/L (45-117); BILIRUBIN,TOTAL 0.4 mg/dL (0.2-1.0); TOT PROT 5.8 g/dl (6.4-8.2)
--- NOTE | 2016-06-25 08:27 | PN ---
Progress Note (short form) - Note Progress Note: Pt without complaints this am, dressing changed with nursing staff. Pt with bowel movement recorded x2 yesterday. Vital Signs Period Temp Pulse Resp BP Sys/Palafox Pulse Ox Last 24 Hr 98.2 F-98.6 F 82-100 18-20 108-147/59-68 99-99 JES-10ml purulent(drain stripped) of note, black dots approx 1 cm from the skin( remains sutured in place) PE: GEN: alert/arousable Abd: soft, non-distended, non-tender. Midline inc c/d. Midline guanakito( intermittent) with open areas to skin edges. No drainage noted or erythema. CBC, BMP 02/ 06:00 06/25/16 06:00 Problem List - Problems (1) Intra-abdominal abscess Assessment/Plan: s/p exp lap with drainage of inta-abd abscess, enterotomy for fecolith with abscess appearing to be from a uterine mass, POD#12 cont diet as tolerated, pt also receiving clinimax for nutrition support. JES to bulb suction, minimal oupt pt. Cont IV abx and monitor WBC/drain outpt local wound care Code(s): K65.1 - PERITONEAL ABSCESS
[2016-06-25] MEDS: AMINO ACIDS/PROTEIN HYDROLYS 30 ML LIQUID.PKT PO SCH ×2 (09:27→17:06)
[2016-06-25] MEDS: ENOXAPARIN NA (PORCINE) 60 MG/0.6 ML DISP.SYRIN SQ SCH ×2 (09:27→22:20)
[2016-06-25] MEDS: CYANOCOBALAMIN (VITAMIN B-12) 1000 MCG/1 ML VIAL IM SCH (09:27)
[2016-06-25] MEDS: MULTIVITAMINS (DAILY MVI) TABLET (FP) PO SCH (09:28)
[2016-06-25] MEDS: NAPH,MB-DB/K PH,MBDB POWDER PACKET PO SCH (09:28)
[2016-06-25] MEDS: FERROUS SO4 325 MG TABLET (FP) PO SCH (09:28)
[2016-06-25] MEDS: LACTOBACILLUS ACIDOPHILUS 1 EACH TAB (FP) PO SCH (09:28)
[2016-06-25] MEDS: ASCORBIC ACID 500 MG TABLET (FP) PO SCH (09:29)
[2016-06-25] MEDS: guaiFENesin 600 MG TABLET.ER (FP) PO SCH ×2 (09:29→22:19)
[2016-06-25] MEDS: METOPROLOL TARTRATE 25 MG TABLET (FP) PO SCH ×2 (09:30→22:19)
[2016-06-25] MEDS: FOLIC ACID 1 MG TABLET (FP) PO SCH (09:30)
--- NOTE | 2016-06-25 11:01 | PN ---
Progress Note, Physician History of Present Illness: seen and examined today in nad. no overnight events. - Current Medication List Current Medications: Active Medications Acetaminophen (Tylenol -) 650 mg PO Q6H PRN PRN Reason: FEVER OR PAIN Amino Acids (Prosource No Carb Liquid Pkt) 30 ml PO BID@0800,1730 [facility] Last Admin: 06/25/16 09:27 Dose: 30 ml Ascorbic Acid (Vitamin C -) 500 mg PO DAILY [facility] Last Admin: 06/25/16 09:29 Dose: 500 mg Clonazepam (Klonopin -) 0.5 mg PO TID [facility] Last Admin: 06/25/16 06:24 Dose: 0.5 mg Clonidine HCl (Catapres Tts Patch -) 0.1 mg TD Q7D@1000 [facility] Cyanocobalamin (Vitamin B12 Injection -) 1,000 mcg IM DAILY [facility] Last Admin: 06/25/16 09:27 Dose: 1,000 mcg Digoxin (Lanoxin -) 0.125 mg PO Q2D [facility] Last Admin: 06/24/16 10:42 Dose: 0.125 mg Enoxaparin Sodium (Lovenox -) 60 mg SQ BID [facility] Last Admin: 06/25/16 09:27 Dose: 60 mg Ferrous Sulfate (Feosol -) 325 mg PO DAILY@0800 [facility] Last Admin: 06/25/16 09:28 Dose: 325 mg Folic Acid (Folic Acid -) 1 mg PO DAILY [facility] Last Admin: 06/25/16 09:30 Dose: 1 mg Guaifenesin (Mucinex -) 600 mg PO BID [facility] Last Admin: 06/25/16 09:29 Dose: 600 mg Amino Acids (Clinimix -) 1,000 mls @ 42 mls/hr IV ASDIR [facility] Last Admin: 06/24/16 17:14 Dose: 42 mls/hr Ceftriaxone Sodium (Rocephin 2gm Ivpb (Pre-Docked)) 100 mls @ 200 mls/hr IVPB DAILY [facility] Last Admin: 06/24/16 11:38 Dose: 200 mls/hr Metronidazole (Flagyl 500mg Premixed Ivpb -) 100 mls @ 100 mls/hr IVPB Q8H-IV [facility] Last Admin: 06/25/16 09:27 Dose: 100 mls/hr Lactobacillus Acidophilus (Bacid -) 1 tab PO DAILY [facility] Last Admin: 06/25/16 09:28 Dose: 1 tab Metoprolol Tartrate (Lopressor -) 25 mg PO BID [facility] Last Admin: 06/25/16 09:30 Dose: 25 mg Metoprolol Tartrate (Lopressor Injection -) 5 mg IVPUSH Q4H PRN PRN Reason: HYPERTENSION Multivitamins/Minerals/Vitamin C (Tab-A-Vit -) 1 tab PO DAILY [facility] Last Admin: 06/25/16 09:28 Dose: 1 tab Ondansetron HCl (Zofran Injection) 4 mg IVPB Q6H PRN PRN Reason: NAUSEA Potassium Phos/Sodium Phos (Phos-Nak Packet -) 1 packet PO DAILY [facility] Last Admin: 06/25/16 09:28 Dose: 1 packet - Objective Vital Signs: Vital Signs Temperature 98.2 F 06/25/16 06:00 Pulse Rate 96 H 06/25/16 06:00 Respiratory Rate 18 06/25/16 06:00 Blood Pressure 147/63 06/25/16 06:00 O2 Sat by Pulse Oximetry (%) 99 06/24/16 22:00 Constitutional: Yes: No Distress, Calm Eyes: Yes: Conjunctiva Clear, EOM Intact, PERRL HENT: Yes: Atraumatic, Normocephalic Neck: Yes: Supple, Trachea Midline Cardiovascular: Yes: Pulse Irregular, S1, S2. No: Bradycardia, Tachycardia, Bruit, JVD, Gallop, Murmur, Rub, S3, S4, Varicosities Respiratory: Yes: Regular, CTA Bilaterally. No: Rales, Rhonchi, Wheezes Gastrointestinal: Yes: Tenderness. No: Distention Extremities: Yes: WNL Edema: No Peripheral Pulses WNL: Yes Peripheral Pulses: Left Doralis Pedis: 2+, Right Dorsalis Pedis: 2+ Neurological: Yes: Alert Psychiatric: Yes: Alert Labs: CBC, BMP 06/25/16 06:00 06/25/16 06:00 INR, PTT INR 1.61 (0.82-1.09) H 06/23/16 05:00 - ....Imaging Chest X-ray: Report Reviewed, Image Reviewed EKG: Report Reviewed, Image Reviewed Other: Report Reviewed, Image Reviewed Assessment/Plan AFib-HR controlled -cont digoxin 0.125mg every other day and lopressor -currently on Lovenox until po AC can be resumed HTN-adequately controlled currently -cont current medical regimen
--- NOTE | 2016-06-25 11:23 | PN ---
Progress Note, Physician Chief Complaint: "LEAVE ME ALONE" NOT IN A GOOD MOOD HAD D/W FAMILY ABOUT DRAINAGE - Current Medication List Current Medications: Active Medications Acetaminophen (Tylenol -) 650 mg PO Q6H PRN PRN Reason: FEVER OR PAIN Amino Acids (Prosource No Carb Liquid Pkt) 30 ml PO BID@0800,1730 [facility] Last Admin: 06/25/16 09:27 Dose: 30 ml Ascorbic Acid (Vitamin C -) 500 mg PO DAILY [facility] Last Admin: 06/25/16 09:29 Dose: 500 mg Clonazepam (Klonopin -) 0.5 mg PO TID [facility] Last Admin: 06/25/16 06:24 Dose: 0.5 mg Clonidine HCl (Catapres Tts Patch -) 0.1 mg TD Q7D@1000 [facility] Cyanocobalamin (Vitamin B12 Injection -) 1,000 mcg IM DAILY [facility] Last Admin: 06/25/16 09:27 Dose: 1,000 mcg Digoxin (Lanoxin -) 0.125 mg PO Q2D [facility] Last Admin: 06/24/16 10:42 Dose: 0.125 mg Enoxaparin Sodium (Lovenox -) 60 mg SQ BID [facility] Last Admin: 06/25/16 09:27 Dose: 60 mg Ferrous Sulfate (Feosol -) 325 mg PO DAILY@0800 [facility] Last Admin: 06/25/16 09:28 Dose: 325 mg Folic Acid (Folic Acid -) 1 mg PO DAILY [facility] Last Admin: 06/25/16 09:30 Dose: 1 mg Guaifenesin (Mucinex -) 600 mg PO BID [facility] Last Admin: 06/25/16 09:29 Dose: 600 mg Amino Acids (Clinimix -) 1,000 mls @ 42 mls/hr IV ASDIR [facility] Last Admin: 06/24/16 17:14 Dose: 42 mls/hr Ceftriaxone Sodium (Rocephin 2gm Ivpb (Pre-Docked)) 100 mls @ 200 mls/hr IVPB DAILY [facility] Last Admin: 06/24/16 11:38 Dose: 200 mls/hr Metronidazole (Flagyl 500mg Premixed Ivpb -) 100 mls @ 100 mls/hr IVPB Q8H-IV [facility] Last Admin: 06/25/16 09:27 Dose: 100 mls/hr Lactobacillus Acidophilus (Bacid -) 1 tab PO DAILY [facility] Last Admin: 06/25/16 09:28 Dose: 1 tab Metoprolol Tartrate (Lopressor -) 25 mg PO BID [facility] Last Admin: 06/25/16 09:30 Dose: 25 mg Metoprolol Tartrate (Lopressor Injection -) 5 mg IVPUSH Q4H PRN PRN Reason: HYPERTENSION Multivitamins/Minerals/Vitamin C (Tab-A-Vit -) 1 tab PO DAILY [facility] Last Admin: 06/25/16 09:28 Dose: 1 tab Ondansetron HCl (Zofran Injection) 4 mg IVPB Q6H PRN PRN Reason: NAUSEA Potassium Phos/Sodium Phos (Phos-Nak Packet -) 1 packet PO DAILY [facility] Last Admin: 06/25/16 09:28 Dose: 1 packet - Objective Vital Signs: Vital Signs Temperature 98.2 F 06/25/16 06:00 Pulse Rate 96 H 06/25/16 06:00 Respiratory Rate 18 06/25/16 06:00 Blood Pressure 147/63 06/25/16 06:00 O2 Sat by Pulse Oximetry (%) 99 06/24/16 22:00 Constitutional: Yes: Calm Cardiovascular: Yes: WNL Respiratory: Yes: WNL Gastrointestinal: Yes: WNL Edema: No Labs: CBC, BMP 06/25/16 06:00 06/25/16 06:00 INR, PTT INR 1.61 (0.82-1.09) H 06/23/16 05:00 Problem List - Problems (1) Anxiety Code(s): F41.9 - ANXIETY DISORDER, UNSPECIFIED (2) HTN (hypertension) Code(s): I10 - ESSENTIAL (PRIMARY) HYPERTENSION Qualifiers: Hypertension type: essential hypertension Qualified Code(s): I10 - Essential (primary) hypertension (3) Hyperlipidemia Code(s): E78.5 - HYPERLIPIDEMIA, UNSPECIFIED Qualifiers: Hyperlipidemia type: pure hypercholesterolemia Qualified Code(s): E78.0 - Pure hypercholesterolemia (4) Rapid atrial fibrillation Code(s): I48.91 - UNSPECIFIED ATRIAL FIBRILLATION (5) Renal insufficiency Code(s): N28.9 - DISORDER OF KIDNEY AND URETER, UNSPECIFIED (6) Uterine abscess Code(s): N71.9 - INFLAMMATORY DISEASE OF UTERUS, UNSPECIFIED Assessment/Plan (1) Sepsis Assessment/Plan: IV ABX MONITOR LABS Code(s): A41.9 - SEPSIS, UNSPECIFIED ORGANISM Qualifiers: Sepsis type: Escherichia coli Qualified Code(s): A41.51 - Sepsis due to Escherichia coli [E. 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
[2016-06-25] MEDS ORDERED: ZOLPIDEM TARTRATE 5 MG TABLET PO PRN (11:24)
[2016-06-25] MEDS: CEFTRIAXONE 2G/100 ML IVPB SCH (11:29)
[2016-06-25] MEDS: AMINO ACIDS 4.25%/D5W 1,000 ML IV SCH ×2 (13:30→21:25)
--- NOTE | 2016-06-25 14:44 | PN ---
Progress Note, Physician - Current Medication List Current Medications: Active Medications Acetaminophen (Tylenol -) 650 mg PO Q6H PRN PRN Reason: FEVER OR PAIN Amino Acids (Prosource No Carb Liquid Pkt) 30 ml PO BID@0800,1730 [facility] Last Admin: 06/25/16 09:27 Dose: 30 ml Ascorbic Acid (Vitamin C -) 500 mg PO DAILY [facility] Last Admin: 06/25/16 09:29 Dose: 500 mg Clonazepam (Klonopin -) 0.5 mg PO TID [facility] Last Admin: 06/25/16 13:36 Dose: 0.5 mg Clonidine HCl (Catapres Tts Patch -) 0.1 mg TD Q7D@1000 [facility] Cyanocobalamin (Vitamin B12 Injection -) 1,000 mcg IM DAILY [facility] Last Admin: 06/25/16 09:27 Dose: 1,000 mcg Digoxin (Lanoxin -) 0.125 mg PO Q2D [facility] Last Admin: 06/24/16 10:42 Dose: 0.125 mg Enoxaparin Sodium (Lovenox -) 60 mg SQ BID [facility] Last Admin: 06/25/16 09:27 Dose: 60 mg Ferrous Sulfate (Feosol -) 325 mg PO DAILY@0800 [facility] Last Admin: 06/25/16 09:28 Dose: 325 mg Folic Acid (Folic Acid -) 1 mg PO DAILY [facility] Last Admin: 06/25/16 09:30 Dose: 1 mg Guaifenesin (Mucinex -) 600 mg PO BID [facility] Last Admin: 06/25/16 09:29 Dose: 600 mg Amino Acids (Clinimix -) 1,000 mls @ 42 mls/hr IV ASDIR [facility] Last Admin: 06/25/16 13:30 Dose: Not Given Ceftriaxone Sodium (Rocephin 2gm Ivpb (Pre-Docked)) 100 mls @ 200 mls/hr IVPB DAILY [facility] Last Admin: 06/25/16 11:29 Dose: 200 mls/hr Metronidazole (Flagyl 500mg Premixed Ivpb -) 100 mls @ 100 mls/hr IVPB Q8H-IV [facility] Last Admin: 06/25/16 09:27 Dose: 100 mls/hr Lactobacillus Acidophilus (Bacid -) 1 tab PO DAILY [facility] Last Admin: 06/25/16 09:28 Dose: 1 tab Metoprolol Tartrate (Lopressor -) 25 mg PO BID [facility] Last Admin: 06/25/16 09:30 Dose: 25 mg Metoprolol Tartrate (Lopressor Injection -) 5 mg IVPUSH Q4H PRN PRN Reason: HYPERTENSION Multivitamins/Minerals/Vitamin C (Tab-A-Vit -) 1 tab PO DAILY [facility] Last Admin: 06/25/16 09:28 Dose: 1 tab Ondansetron HCl (Zofran Injection) 4 mg IVPB Q6H PRN PRN Reason: NAUSEA Potassium Phos/Sodium Phos (Phos-Nak Packet -) 1 packet PO DAILY [facility] Last Admin: 06/25/16 09:28 Dose: 1 packet - Objective Vital Signs: Vital Signs Temperature 99.4 F 06/25/16 10:00 Pulse Rate 86 06/25/16 10:00 Respiratory Rate 20 06/25/16 10:00 Blood Pressure 154/83 06/25/16 10:00 O2 Sat by Pulse Oximetry (%) 99 06/25/16 13:10 Labs: CBC, BMP 06/25/16 06:00 06/25/16 06:00 INR, PTT INR 1.61 (0.82-1.09) H 06/23/16 05:00
[2016-06-26] MEDS: METRONIDAZOLE 500 MG PREMIXED 100 ML IVPB SCH ×3 (02:07→17:58)
[2016-06-26] MEDS: clonazePAM 0.5 MG TABLET PO SCH ×4 (06:15→21:52)
[2016-06-26 08:37] LABS: BASOPHIL 0.4 % (0-2.0); EOSINOPHIL 1.2 % (0-4.5); MCH 28.1 pg (25.7-33.7); MCHC 32.3 g/dl (32.0-36.0); MEAN PLT VOLUME 7.6 fl (7.5-11.1); NEUTROPHILS 79.7 % (42.8-82.8); PLATELET COUNT 352 K/MM3 (134-434); RDW 14.8 % (11.6-15.6)
[2016-06-26] MEDS: AMINO ACIDS/PROTEIN HYDROLYS 30 ML LIQUID.PKT PO SCH ×2 (08:43→17:55)
[2016-06-26] MEDS: FERROUS SO4 325 MG TABLET (FP) PO SCH (08:43)
[2016-06-26 08:51] LABS: ALBUMIN 1.7 g/dl (3.4-5.0); ALK PHOS 55 U/L (45-117); ANION GAP 11 (8-16); BILIRUBIN,TOTAL 0.3 mg/dL (0.2-1.0); CALCIUM 7.3 mg/dL (8.5-10.1); CO2 26 mmol/L (21-32); CREATININE 0.6 mg/dL (0.55-1.02); GLUCOSE,RANDOM 94 mg/dL (74-106); SGOT/AST 16 U/L (15-37); SGPT/ALT 11 U/L (12-78); TOT PROT 5.2 g/dl (6.4-8.2)
[2016-06-26] MEDS: MULTIVITAMINS (DAILY MVI) TABLET (FP) PO SCH (10:00)
[2016-06-26] MEDS: METOPROLOL TARTRATE 25 MG TABLET (FP) PO SCH ×2 (10:00→21:52)
[2016-06-26] MEDS: guaiFENesin 600 MG TABLET.ER (FP) PO SCH ×2 (10:00→21:52)
[2016-06-26] MEDS: LACTOBACILLUS ACIDOPHILUS 1 EACH TAB (FP) PO SCH (10:00)
[2016-06-26] MEDS: ASCORBIC ACID 500 MG TABLET (FP) PO SCH (10:00)
[2016-06-26] MEDS: ENOXAPARIN NA (PORCINE) 60 MG/0.6 ML DISP.SYRIN SQ SCH ×2 (10:01→21:52)
[2016-06-26] MEDS: DIGOXIN 0.125 MG TABLET (FP) PO SCH (10:02)
[2016-06-26] MEDS: NAPH,MB-DB/K PH,MBDB POWDER PACKET PO SCH (10:02)
[2016-06-26] MEDS: FOLIC ACID 1 MG TABLET (FP) PO SCH (10:02)
[2016-06-26] MEDS: CYANOCOBALAMIN (VITAMIN B-12) 1000 MCG/1 ML VIAL IM SCH (10:02)
--- NOTE | 2016-06-26 10:22 | PN ---
Progress Note, Physician Chief Complaint: in a better mood confused - Current Medication List Current Medications: Active Medications Acetaminophen (Tylenol -) 650 mg PO Q6H PRN PRN Reason: FEVER OR PAIN Last Admin: 06/25/16 16:42 Dose: 650 mg Amino Acids (Prosource No Carb Liquid Pkt) 30 ml PO BID@0800,1730 [facility] Last Admin: 06/26/16 08:43 Dose: 30 ml Ascorbic Acid (Vitamin C -) 500 mg PO DAILY [facility] Last Admin: 06/26/16 10:00 Dose: 500 mg Clonazepam (Klonopin -) 0.5 mg PO TID [facility] Last Admin: 06/26/16 10:00 Dose: 0.5 mg Clonidine HCl (Catapres Tts Patch -) 0.1 mg TD Q7D@1000 [facility] Cyanocobalamin (Vitamin B12 Injection -) 1,000 mcg IM DAILY [facility] Last Admin: 06/26/16 10:02 Dose: 1,000 mcg Digoxin (Lanoxin -) 0.125 mg PO Q2D [facility] Last Admin: 06/26/16 10:02 Dose: 0.125 mg Enoxaparin Sodium (Lovenox -) 60 mg SQ BID [facility] Last Admin: 06/26/16 10:01 Dose: 60 mg Ferrous Sulfate (Feosol -) 325 mg PO DAILY@0800 [facility] Last Admin: 06/26/16 08:43 Dose: 325 mg Folic Acid (Folic Acid -) 1 mg PO DAILY [facility] Last Admin: 06/26/16 10:02 Dose: 1 mg Guaifenesin (Mucinex -) 600 mg PO BID [facility] Last Admin: 06/26/16 10:00 Dose: 600 mg Amino Acids (Clinimix -) 1,000 mls @ 42 mls/hr IV ASDIR [facility] Last Admin: 06/25/16 21:25 Dose: 42 mls/hr Ceftriaxone Sodium (Rocephin 2gm Ivpb (Pre-Docked)) 100 mls @ 200 mls/hr IVPB DAILY [facility] Last Admin: 06/25/16 11:29 Dose: 200 mls/hr Metronidazole (Flagyl 500mg Premixed Ivpb -) 100 mls @ 100 mls/hr IVPB Q8H-IV [facility] Last Admin: 06/26/16 09:59 Dose: 100 mls/hr Lactobacillus Acidophilus (Bacid -) 1 tab PO DAILY [facility] Last Admin: 06/26/16 10:00 Dose: 1 tab Metoprolol Tartrate (Lopressor -) 25 mg PO BID [facility] Last Admin: 06/26/16 10:00 Dose: 25 mg Metoprolol Tartrate (Lopressor Injection -) 5 mg IVPUSH Q4H PRN PRN Reason: HYPERTENSION Multivitamins/Minerals/Vitamin C (Tab-A-Vit -) 1 tab PO DAILY [facility] Last Admin: 06/26/16 10:00 Dose: 1 tab Ondansetron HCl (Zofran Injection) 4 mg IVPB Q6H PRN PRN Reason: NAUSEA Potassium Phos/Sodium Phos (Phos-Nak Packet -) 1 packet PO DAILY [facility] Last Admin: 06/26/16 10:02 Dose: 1 packet - Objective Vital Signs: Vital Signs Temperature 99.8 F H 06/26/16 08:37 Pulse Rate 109 H 06/26/16 10:02 Respiratory Rate 20 06/26/16 08:37 Blood Pressure 162/80 06/26/16 08:37 O2 Sat by Pulse Oximetry (%) 99 06/25/16 21:00 Constitutional: Yes: Calm Cardiovascular: Yes: WNL Respiratory: Yes: WNL Gastrointestinal: Yes: WNL Edema: No Wound/Incision: Yes: Other (minimal eagle drainage) Labs: CBC, BMP 06/26/16 06:40 06/26/16 06:30 INR, PTT INR 1.61 (0.82-1.09) H 06/23/16 05:00 Problem List - Problems (1) Anxiety Code(s): F41.9 - ANXIETY DISORDER, UNSPECIFIED (2) HTN (hypertension) Code(s): I10 - ESSENTIAL (PRIMARY) HYPERTENSION Qualifiers: Hypertension type: essential hypertension Qualified Code(s): I10 - Essential (primary) hypertension (3) Hyperlipidemia Code(s): E78.5 - HYPERLIPIDEMIA, UNSPECIFIED Qualifiers: Hyperlipidemia type: pure hypercholesterolemia Qualified Code(s): E78.0 - Pure hypercholesterolemia (4) Rapid atrial fibrillation Code(s): I48.91 - UNSPECIFIED ATRIAL FIBRILLATION (5) Renal insufficiency Code(s): N28.9 - DISORDER OF KIDNEY AND URETER, UNSPECIFIED (6) Uterine abscess Code(s): N71.9 - INFLAMMATORY DISEASE OF UTERUS, UNSPECIFIED Assessment/Plan (1) Sepsis Assessment/Plan: IV ABX MONITOR LABS Code(s): A41.9 - SEPSIS, UNSPECIFIED ORGANISM Qualifiers: Sepsis type: Escherichia coli Qualified Code(s): A41.51 - Sepsis due to Escherichia coli [E. 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
[2016-06-26] MEDS: CEFTRIAXONE 2G/100 ML IVPB SCH (11:39)
--- NOTE | 2016-06-26 12:33 | PN ---
Progress Note, Physician History of Present Illness: seen and examined today in nad. resting comfortably. no reported overnight events or new complaints. - Current Medication List Current Medications: Active Medications Acetaminophen (Tylenol -) 650 mg PO Q6H PRN PRN Reason: FEVER OR PAIN Last Admin: 06/25/16 16:42 Dose: 650 mg Amino Acids (Prosource No Carb Liquid Pkt) 30 ml PO BID@0800,1730 [facility] Last Admin: 06/26/16 08:43 Dose: 30 ml Ascorbic Acid (Vitamin C -) 500 mg PO DAILY [facility] Last Admin: 06/26/16 10:00 Dose: 500 mg Clonazepam (Klonopin -) 0.5 mg PO TID [facility] Last Admin: 06/26/16 10:00 Dose: 0.5 mg Clonidine HCl (Catapres Tts Patch -) 0.1 mg TD Q7D@1000 [facility] Cyanocobalamin (Vitamin B12 Injection -) 1,000 mcg IM DAILY [facility] Last Admin: 06/26/16 10:02 Dose: 1,000 mcg Digoxin (Lanoxin -) 0.125 mg PO Q2D [facility] Last Admin: 06/26/16 10:02 Dose: 0.125 mg Enoxaparin Sodium (Lovenox -) 60 mg SQ BID [facility] Last Admin: 06/26/16 10:01 Dose: 60 mg Ferrous Sulfate (Feosol -) 325 mg PO DAILY@0800 [facility] Last Admin: 06/26/16 08:43 Dose: 325 mg Folic Acid (Folic Acid -) 1 mg PO DAILY [facility] Last Admin: 06/26/16 10:02 Dose: 1 mg Guaifenesin (Mucinex -) 600 mg PO BID [facility] Last Admin: 06/26/16 10:00 Dose: 600 mg Amino Acids (Clinimix -) 1,000 mls @ 42 mls/hr IV ASDIR [facility] Last Admin: 06/25/16 21:25 Dose: 42 mls/hr Ceftriaxone Sodium (Rocephin 2gm Ivpb (Pre-Docked)) 100 mls @ 200 mls/hr IVPB DAILY [facility] Last Admin: 06/26/16 11:39 Dose: 200 mls/hr Metronidazole (Flagyl 500mg Premixed Ivpb -) 100 mls @ 100 mls/hr IVPB Q8H-IV [facility] Last Admin: 06/26/16 09:59 Dose: 100 mls/hr Lactobacillus Acidophilus (Bacid -) 1 tab PO DAILY [facility] Last Admin: 06/26/16 10:00 Dose: 1 tab Metoprolol Tartrate (Lopressor -) 25 mg PO BID [facility] Last Admin: 06/26/16 10:00 Dose: 25 mg Metoprolol Tartrate (Lopressor Injection -) 5 mg IVPUSH Q4H PRN PRN Reason: HYPERTENSION Multivitamins/Minerals/Vitamin C (Tab-A-Vit -) 1 tab PO DAILY [facility] Last Admin: 06/26/16 10:00 Dose: 1 tab Ondansetron HCl (Zofran Injection) 4 mg IVPB Q6H PRN PRN Reason: NAUSEA Potassium Phos/Sodium Phos (Phos-Nak Packet -) 1 packet PO DAILY [facility] Last Admin: 06/26/16 10:02 Dose: 1 packet - Objective Vital Signs: Vital Signs Temperature 99.8 F H 06/26/16 08:37 Pulse Rate 109 H 06/26/16 10:02 Respiratory Rate 20 06/26/16 08:37 Blood Pressure 162/80 06/26/16 08:37 O2 Sat by Pulse Oximetry (%) 92 L 06/26/16 10:00 Constitutional: Yes: No Distress, Calm HENT: Yes: Atraumatic, Normocephalic Cardiovascular: Yes: Pulse Irregular, S1, S2. No: Bradycardia, Tachycardia, Bruit, JVD, Gallop, Murmur, Rub, S3, S4, Varicosities Respiratory: Yes: Regular. No: Rales, Rhonchi, Wheezes Gastrointestinal: Yes: Normal Bowel Sounds. No: Distention, Tenderness Extremities: Yes: WNL Edema: No Peripheral Pulses WNL: Yes Peripheral Pulses: Left Doralis Pedis: 2+, Right Dorsalis Pedis: 2+ Labs: CBC, BMP 06/26/16 06:40 06/26/16 06:30 INR, PTT INR 1.61 (0.82-1.09) H 06/23/16 05:00 - ....Imaging Chest X-ray: Report Reviewed, Image Reviewed EKG: Report Reviewed, Image Reviewed Other: Report Reviewed, Image Reviewed Assessment/Plan AFib-HR overall adequately controlled, slightly elevated since yesterday afternoon correlating with borderline low grade fever -cont digoxin 0.125mg every other day and lopressor 25mg po bid with prn IV Lopressor as ordered -currently on Lovenox until po AC can be resumed HTN-variable including uncontrolled early this am, but overall adequately controlled -has been on metoprolol and clonidine since prior to this admission -would be helpful to know why clonidine was chosen over other agents, if there is contraindication to calcium channel blockers, DANETTE-I/ARBs, or hydralazine as these agents may be easier to achieve blood pressure control with -not on thiazide diuretic now and would hold as pt is requiring hydration due to her medical condition
--- NOTE | 2016-06-26 13:37 | PN ---
Progress Note, Physician History of Present Illness: 80 yo somnolent, grimacing to abdominal palpation. Just had Klonopin as per nurse. POD#11 s/p explor laparotomy, drainage of abd/pelvic abscess, enterotomy. JES drain in situ with purulent drainage. - Current Medication List Current Medications: Active Medications Acetaminophen (Tylenol -) 650 mg PO Q6H PRN PRN Reason: FEVER OR PAIN Last Admin: 06/25/16 16:42 Dose: 650 mg Amino Acids (Prosource No Carb Liquid Pkt) 30 ml PO BID@0800,1730 [facility] Last Admin: 06/26/16 08:43 Dose: 30 ml Ascorbic Acid (Vitamin C -) 500 mg PO DAILY [facility] Last Admin: 06/26/16 10:00 Dose: 500 mg Clonazepam (Klonopin -) 0.5 mg PO TID [facility] Last Admin: 06/26/16 10:00 Dose: 0.5 mg Clonidine HCl (Catapres Tts Patch -) 0.1 mg TD Q7D@1000 [facility] Cyanocobalamin (Vitamin B12 Injection -) 1,000 mcg IM DAILY [facility] Last Admin: 06/26/16 10:02 Dose: 1,000 mcg Digoxin (Lanoxin -) 0.125 mg PO Q2D [facility] Last Admin: 06/26/16 10:02 Dose: 0.125 mg Enoxaparin Sodium (Lovenox -) 60 mg SQ BID [facility] Last Admin: 06/26/16 10:01 Dose: 60 mg Ferrous Sulfate (Feosol -) 325 mg PO DAILY@0800 [facility] Last Admin: 06/26/16 08:43 Dose: 325 mg Folic Acid (Folic Acid -) 1 mg PO DAILY [facility] Last Admin: 06/26/16 10:02 Dose: 1 mg Guaifenesin (Mucinex -) 600 mg PO BID [facility] Last Admin: 06/26/16 10:00 Dose: 600 mg Amino Acids (Clinimix -) 1,000 mls @ 42 mls/hr IV ASDIR [facility] Last Admin: 06/25/16 21:25 Dose: 42 mls/hr Ceftriaxone Sodium (Rocephin 2gm Ivpb (Pre-Docked)) 100 mls @ 200 mls/hr IVPB DAILY [facility] Last Admin: 06/26/16 11:39 Dose: 200 mls/hr Metronidazole (Flagyl 500mg Premixed Ivpb -) 100 mls @ 100 mls/hr IVPB Q8H-IV [facility] Last Admin: 06/26/16 09:59 Dose: 100 mls/hr Lactobacillus Acidophilus (Bacid -) 1 tab PO DAILY [facility] Last Admin: 06/26/16 10:00 Dose: 1 tab Metoprolol Tartrate (Lopressor -) 25 mg PO BID [facility] Last Admin: 06/26/16 10:00 Dose: 25 mg Metoprolol Tartrate (Lopressor Injection -) 5 mg IVPUSH Q4H PRN PRN Reason: HYPERTENSION Multivitamins/Minerals/Vitamin C (Tab-A-Vit -) 1 tab PO DAILY [facility] Last Admin: 06/26/16 10:00 Dose: 1 tab Ondansetron HCl (Zofran Injection) 4 mg IVPB Q6H PRN PRN Reason: NAUSEA Potassium Phos/Sodium Phos (Phos-Nak Packet -) 1 packet PO DAILY [facility] Last Admin: 06/26/16 10:02 Dose: 1 packet - Objective Vital Signs: Vital Signs Temperature 99.8 F H 06/26/16 08:37 Pulse Rate 109 H 06/26/16 10:02 Respiratory Rate 20 06/26/16 08:37 Blood Pressure 162/80 06/26/16 08:37 O2 Sat by Pulse Oximetry (%) 92 L 06/26/16 10:00 Constitutional: Yes: Diaphoresis Neck: Yes: Supple Respiratory: Yes: Diminished, Rhonchi Gastrointestinal: Yes: Distention (mild), Tenderness, Epigastrium Wound/Incision: Yes: Dressing Dry and Intact (Poor drainage from JES) Additional Findings/Remarks: Exam limited due to patient being very somnolent Labs: CBC, BMP 06/26/16 06:40 06/26/16 06:30 INR, PTT INR 1.61 (0.82-1.09) H 06/23/16 05:00 Problem List - Problems (1) Sepsis Code(s): A41.9 - SEPSIS, UNSPECIFIED ORGANISM Qualifiers: Sepsis type: Escherichia coli Qualified Code(s): A41.51 - Sepsis due to Escherichia coli [E. coli] (2) Anemia Assessment/Plan: Dropping H/H consider transfusion Code(s): D64.9 - ANEMIA, UNSPECIFIED Qualifiers: Other causes of anemia: chronic disease, other (3) Intra-abdominal abscess Assessment/Plan: trending up Temps today's decrease in WBC could indicate suppressed response Consider adding broader Abx coverage IR needs to see the patient currently poor JES drainage Code(s): K65.1 - PERITONEAL ABSCESS (4) Septic shock Assessment/Plan: Consider further sepsis w/up involve ICU management Code(s): A41.9 - SEPSIS, UNSPECIFIED ORGANISM R65.21 - SEVERE SEPSIS WITH SEPTIC SHOCK Assessment/Plan Patient is personally discussed with Dr. Mcginnis
[2016-06-26] MEDS: AMINO ACIDS 4.25%/D5W 1,000 ML IV SCH (13:52)
--- NOTE | 2016-06-26 16:28 | CONSULT ---
Consult Consult Specialty:: gynecologic oncology Referred by:: Dr. Adarsh Mercado Reason for Consultation:: Pelvic abscess - History of Present Illness Chief Complaint: abdominal pain History of Present Illness: Late entry-- Patient with h/o a-fib, HTN, dementia was admitted from shelter for c/o abdominal pain on 06/15/16. CT scan showed large abscess in pelvis 11.6 x 7.0 x 3.4 cm. Collection was adjacent to sigmoid colon. No other pelvic masses/ collections seen. Few air droplets seen in endometrial cavity. Pt was begun on Levo/flagyl in ED. She then on the date of admission underwent a ex lap, abdominal washout, drainage of intraabdominal abscess, enterotomy with removal of fecalith and primary repair by Dr. Wayne and uterine mass biopsy by Dr Mercado. No evidence of diverticular abscess was seen. It was felt more likely to be TOA. JES drain was placed in pelvis. Patient subsequently had elevated WBC into the 30's and I was asked to consult for possible hysterectomy. She had a pelvic ultrasound on 06/20/16 which showed a complex density in the right hemipelvix measuring 8x 6 cm. I initially saw her on 06/21/16 at which time she was afebrile, but with leukocytosis. Abdominal exam was significant for tenderness in the pelvis, but no rebound/guarding. Purulent fluid draining from JES. Incision C/D/I. I had a discussion with son Avinash, who was at the bedside that given her comorbid conditions, advanced age and overall frailty, a hysterectomy would be a very morbid surgery for her, and it would be at very high risk of bowel injury. I also spoke with son, Bulmaro, by telephone, who agreed. Plan would be for IR drainage of additional fluid collection if possible. Otherwise, conservative management with antibiotics. Today, patient appears improved. She is asking for her Avinash. She denies any pain. Abdominal exam is soft, without any tenderness. JES drain is draining small amount of purulent fluid. WBC is decreased to 14. She is on Rocephin and flagyl. 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 Cardio/Vascular: Yes: AFIB, HTN, Hyperlipdemia Renal/: Yes: UTI (hx of ) Heme/Onc: Yes: Anemia Psych: Yes: Anxiety Musculoskeletal: Yes: Osteoarthritis - Past Surgical History Past Surgical History: Yes: Mastectomy (Right- for Cancer) Additional Surgical History: Surgery for bowel obstruction in 2000- possible resection per the son - Alcohol/Substance Use Hx Alcohol Use: No - Smoking History Smoking history: Former smoker Have you smoked in the past 12 months: No If you are a former smoker, when did you quit?: 1984 - Social History Usual Living Arrangement: Assisted Living Home Medications - Allergies Allergies/Adverse Reactions: Allergies Allergy/AdvReac Type Severity Reaction Status Date / Time Penicillins Allergy Verified 06/15/16 01:05 - Home Medications Home Medications: Ambulatory Orders Digoxin [Lanoxin -] 0.125 mg PO DAILY tablet 01/16/15 Magnesium Oxide [Mag-Ox -] 400 mg PO BID tablet 01/16/15 Metoprolol Succinate [Toprol XL -] 50 mg PO DAILY tab.sr.24h 01/16/15 Multivitamins [Multivit ([facility] Formulary)] 1 tab PO DAILY tab 01/16/15 Apixaban [Eliquis] 2.5 mg PO BID 05/28/16 Citalopram Hydrobromide [Celexa -] 10 mg PO DAILY 05/28/16 Clonazepam [Klonopin -] 0.5 mg PO TID 05/28/16 Clonidine HCl 0.1 mg PO BID 05/28/16 Acetaminophen [Tylenol .Regular Strength -] 650 mg PO Q6H PRN #0 tablet Rosuvastatin [Crestor -] 5 mg PO HS tablet 06/01/16 Oxycodone HCl [Roxicodone -] 5 mg PO ONCE 06/15/16 Physical Exam Vital Signs: Vital Signs Temperature 99.5 F 06/26/16 14:14 Pulse Rate 104 H 06/26/16 14:14 Respiratory Rate 16 06/26/16 14:14 Blood Pressure 123/63 06/26/16 14:14 O2 Sat by Pulse Oximetry (%) 92 L 06/26/16 10:00 Constitutional: Yes: No Distress, Thin Eyes: Yes: WNL HENT: Yes: WNL Neck: Yes: WNL, Supple Cardiovascular: Yes: Tachycardia Respiratory: Yes: WNL, Regular, CTA Bilaterally Gastrointestinal: Yes: WNL, Normal Bowel Sounds, Soft ...Rectal Exam: Yes: Deferred Integumentary: Yes: WNL Wound/Incision: Yes: Clean/Dry, [place] Intact Neurological: Yes: WNL, Alert Psychiatric: Yes: WNL Labs: CBC, BMP 06/26/16 06:40 06/26/16 06:30 Imaging - Results Chest X-ray: Report Reviewed Cat Scan: Report Reviewed, Image Reviewed Ultrasound: Report Reviewed, Image Reviewed Problem List - Problems (1) Afib Code(s): I48.91 - UNSPECIFIED ATRIAL FIBRILLATION (2) Anemia Code(s): D64.9 - ANEMIA, UNSPECIFIED Qualifiers: Other causes of anemia: chronic disease, other (3) Anxiety and depression Code(s): F41.9 - ANXIETY DISORDER, UNSPECIFIED F32.9 - MAJOR DEPRESSIVE DISORDER, SINGLE EPISODE, UNSPECIFIED (4) Bowel perforation Code(s): K63.1 - PERFORATION OF INTESTINE (NONTRAUMATIC) (5) Dementia Code(s): F03.90 - UNSPECIFIED DEMENTIA WITHOUT BEHAVIORAL DISTURBANCE (6) Intra-abdominal abscess Code(s): K65.1 - PERITONEAL ABSCESS (7) Leukocytosis Code(s): D72.829 - ELEVATED WHITE BLOOD CELL COUNT, UNSPECIFIED (8) HTN (hypertension) Code(s): I10 - ESSENTIAL (PRIMARY) HYPERTENSION Qualifiers: Hypertension type: essential hypertension Qualified Code(s): I10 - Essential (primary) hypertension (9) Hyperlipidemia Code(s): E78.5 - HYPERLIPIDEMIA, UNSPECIFIED Qualifiers: Hyperlipidemia type: pure hypercholesterolemia Qualified Code(s): E78.0 - Pure hypercholesterolemia (10) Sepsis Code(s): A41.9 - SEPSIS, UNSPECIFIED ORGANISM Qualifiers: Sepsis type: Escherichia coli Qualified Code(s): A41.51 - Sepsis due to Escherichia coli [E. coli] Assessment/Plan 80 yo with multiple medical problems including a-fib, dementia, HTN with a pelvic abscess s/p ex lap, washout, pelvic drain placement on 06/15/16. Imaging has been reviewed. She appears to be much improved. I agree with previous plan to continue conservative management with drainage and IV Abx. May reconsult ID to interrogate drain, possibly place additional drain. Given her overall frailty , I still feel hysterectomy would be extremely morbid for her.
[2016-06-27] MEDS: AMINO ACIDS 4.25%/D5W 1,000 ML IV SCH ×3 (00:14→22:07)
[2016-06-27] MEDS: METRONIDAZOLE 500 MG PREMIXED 100 ML IVPB SCH ×3 (01:41→18:21)
[2016-06-27] MEDS: clonazePAM 0.5 MG TABLET PO SCH ×3 (06:20→22:05)
[2016-06-27 08:14] LABS: BASOPHIL 0.5 % (0-2.0); MCH 27.7 pg (25.7-33.7); MCHC 31.9 g/dl (32.0-36.0); MEAN CELL VOLUME 86.6 fl (80-96); MEAN PLT VOLUME 7.2 fl (7.5-11.1); NEUTROPHILS 78.8 % (42.8-82.8); PLATELET COUNT 359 K/MM3 (134-434); RDW 14.8 % (11.6-15.6)
[2016-06-27] MEDS: FERROUS SO4 325 MG TABLET (FP) PO SCH (08:49)
[2016-06-27] MEDS: AMINO ACIDS/PROTEIN HYDROLYS 30 ML LIQUID.PKT PO SCH ×2 (08:49→18:22)
[2016-06-27 08:53] LABS: ALBUMIN 1.8 g/dl (3.4-5.0); ALK PHOS 57 U/L (45-117); ANION GAP 7 (8-16); BILIRUBIN,TOTAL 0.2 mg/dL (0.2-1.0); CALCIUM 7.5 mg/dL (8.5-10.1); CO2 28 mmol/L (21-32); CREATININE 0.7 mg/dL (0.55-1.02); GLUCOSE,RANDOM 99 mg/dL (74-106); SGOT/AST 18 U/L (15-37); SGPT/ALT 13 U/L (12-78)
[2016-06-27 08:54] LABS: TOT PROT 5.6 g/dl (6.4-8.2)
--- NOTE | 2016-06-27 08:56 | PN ---
Progress Note, Physician Chief Complaint: CALM TOLD ME TO DISCUSS ANY PLANS WITH SON - Current Medication List Current Medications: Active Medications Acetaminophen (Tylenol -) 650 mg PO Q6H PRN PRN Reason: FEVER OR PAIN Last Admin: 06/25/16 16:42 Dose: 650 mg Amino Acids (Prosource No Carb Liquid Pkt) 30 ml PO BID@0800,1730 [facility] Last Admin: 06/27/16 08:49 Dose: 30 ml Ascorbic Acid (Vitamin C -) 500 mg PO DAILY [facility] Last Admin: 06/26/16 10:00 Dose: 500 mg Clonazepam (Klonopin -) 0.5 mg PO TID [facility] Last Admin: 06/27/16 06:20 Dose: 0.5 mg Clonidine HCl (Catapres Tts Patch -) 0.1 mg TD Q7D@1000 [facility] Cyanocobalamin (Vitamin B12 Injection -) 1,000 mcg IM DAILY [facility] Last Admin: 06/26/16 10:02 Dose: 1,000 mcg Digoxin (Lanoxin -) 0.125 mg PO Q2D [facility] Last Admin: 06/26/16 10:02 Dose: 0.125 mg Enoxaparin Sodium (Lovenox -) 60 mg SQ BID [facility] Last Admin: 06/26/16 21:52 Dose: 60 mg Ferrous Sulfate (Feosol -) 325 mg PO DAILY@0800 [facility] Last Admin: 06/27/16 08:49 Dose: 325 mg Folic Acid (Folic Acid -) 1 mg PO DAILY [facility] Last Admin: 06/26/16 10:02 Dose: 1 mg Guaifenesin (Mucinex -) 600 mg PO BID [facility] Last Admin: 06/26/16 21:52 Dose: 600 mg Amino Acids (Clinimix -) 1,000 mls @ 42 mls/hr IV ASDIR [facility] Last Admin: 06/27/16 00:14 Dose: 42 mls/hr Ceftriaxone Sodium (Rocephin 2gm Ivpb (Pre-Docked)) 100 mls @ 200 mls/hr IVPB DAILY [facility] Last Admin: 06/26/16 11:39 Dose: 200 mls/hr Metronidazole (Flagyl 500mg Premixed Ivpb -) 100 mls @ 100 mls/hr IVPB Q8H-IV [facility] Last Admin: 06/27/16 01:41 Dose: 100 mls/hr Lactobacillus Acidophilus (Bacid -) 1 tab PO DAILY [facility] Last Admin: 06/26/16 10:00 Dose: 1 tab Metoprolol Tartrate (Lopressor -) 25 mg PO BID [facility] Last Admin: 06/26/16 21:52 Dose: 25 mg Metoprolol Tartrate (Lopressor Injection -) 5 mg IVPUSH Q4H PRN PRN Reason: HYPERTENSION Multivitamins/Minerals/Vitamin C (Tab-A-Vit -) 1 tab PO DAILY [facility] Last Admin: 06/26/16 10:00 Dose: 1 tab Ondansetron HCl (Zofran Injection) 4 mg IVPB Q6H PRN PRN Reason: NAUSEA Potassium Phos/Sodium Phos (Phos-Nak Packet -) 1 packet PO DAILY [facility] Last Admin: 06/26/16 10:02 Dose: 1 packet - Objective Vital Signs: Vital Signs Temperature 99.3 F 06/27/16 06:05 Pulse Rate 100 H 06/27/16 06:05 Respiratory Rate 16 06/27/16 06:05 Blood Pressure 146/71 06/27/16 06:05 O2 Sat by Pulse Oximetry (%) 92 L 06/26/16 21:00 Constitutional: Yes: Calm Cardiovascular: Yes: WNL Respiratory: Yes: WNL Gastrointestinal: Yes: WNL. No: Tenderness Edema: No Neurological: Yes: Tremors Labs: CBC, BMP 06/27/16 07:45 INR, PTT INR 1.61 (0.82-1.09) H 06/23/16 05:00 Problem List - Problems (1) Anxiety Code(s): F41.9 - ANXIETY DISORDER, UNSPECIFIED (2) HTN (hypertension) Code(s): I10 - ESSENTIAL (PRIMARY) HYPERTENSION Qualifiers: Hypertension type: essential hypertension Qualified Code(s): I10 - Essential (primary) hypertension (3) Hyperlipidemia Code(s): E78.5 - HYPERLIPIDEMIA, UNSPECIFIED Qualifiers: Hyperlipidemia type: pure hypercholesterolemia Qualified Code(s): E78.0 - Pure hypercholesterolemia (4) Rapid atrial fibrillation Code(s): I48.91 - UNSPECIFIED ATRIAL FIBRILLATION (5) Renal insufficiency Code(s): N28.9 - DISORDER OF KIDNEY AND URETER, UNSPECIFIED (6) Uterine abscess Code(s): N71.9 - INFLAMMATORY DISEASE OF UTERUS, UNSPECIFIED Assessment/Plan (1) Sepsis Assessment/Plan: IV ABX MONITOR LABS CASE D/W [employer]IDENTIAL [employer]PENTER -> ID RE-CONSULTED TO RE-EVAL ABx COVERAGE ICU ON CASE -> MAY NEED RE-EVAL FOR ICU IF WORSEN Code(s): A41.9 - SEPSIS, UNSPECIFIED ORGANISM Qualifiers: Sepsis type: Escherichia coli Qualified Code(s): A41.51 - Sepsis due to Escherichia coli [E. coli] (2) Uterine abscess Assessment/Plan: IR/[employer] FOLLOW ---ABX ID ON CASE CASE D/W IR -> DOES NOT HAVE WINDOW TO DRAIN ABSCESS. SURG SHOULD RE-EVAL TO DO DRAINAGE Code(s): N71.9 - INFLAMMATORY DISEASE OF UTERUS, UNSPECIFIED (3) Anemia Assessment/Plan: MONITOR LABS Code(s): D64.9 - ANEMIA, UNSPECIFIED Qualifiers: Other causes of anemia: chronic disease, other [employer]
--- NOTE | 2016-06-27 10:23 | PN ---
Progress Note, Physician Chief Complaint: ID Still ill appearing Day 12 post op Ceftriaxone metronidazole - Current Medication List Current Medications: Active Medications Acetaminophen (Tylenol -) 650 mg PO Q6H PRN PRN Reason: FEVER OR PAIN Last Admin: 06/25/16 16:42 Dose: 650 mg Amino Acids (Prosource No Carb Liquid Pkt) 30 ml PO BID@0800,1730 [facility] Last Admin: 06/27/16 08:49 Dose: 30 ml Ascorbic Acid (Vitamin C -) 500 mg PO DAILY [facility] Last Admin: 06/26/16 10:00 Dose: 500 mg Clonazepam (Klonopin -) 0.5 mg PO TID [facility] Last Admin: 06/27/16 06:20 Dose: 0.5 mg Clonidine HCl (Catapres Tts Patch -) 0.1 mg TD Q7D@1000 [facility] Cyanocobalamin (Vitamin B12 Injection -) 1,000 mcg IM DAILY [facility] Last Admin: 06/26/16 10:02 Dose: 1,000 mcg Digoxin (Lanoxin -) 0.125 mg PO Q2D [facility] Last Admin: 06/26/16 10:02 Dose: 0.125 mg Enoxaparin Sodium (Lovenox -) 60 mg SQ BID [facility] Last Admin: 06/26/16 21:52 Dose: 60 mg Ferrous Sulfate (Feosol -) 325 mg PO DAILY@0800 [facility] Last Admin: 06/27/16 08:49 Dose: 325 mg Folic Acid (Folic Acid -) 1 mg PO DAILY [facility] Last Admin: 06/26/16 10:02 Dose: 1 mg Guaifenesin (Mucinex -) 600 mg PO BID [facility] Last Admin: 06/26/16 21:52 Dose: 600 mg Amino Acids (Clinimix -) 1,000 mls @ 42 mls/hr IV ASDIR [facility] Last Admin: 06/27/16 00:14 Dose: 42 mls/hr Ceftriaxone Sodium (Rocephin 2gm Ivpb (Pre-Docked)) 100 mls @ 200 mls/hr IVPB DAILY [facility] Last Admin: 06/26/16 11:39 Dose: 200 mls/hr Metronidazole (Flagyl 500mg Premixed Ivpb -) 100 mls @ 100 mls/hr IVPB Q8H-IV [facility] Last Admin: 06/27/16 01:41 Dose: 100 mls/hr Lactobacillus Acidophilus (Bacid -) 1 tab PO DAILY [facility] Last Admin: 06/26/16 10:00 Dose: 1 tab Metoprolol Tartrate (Lopressor -) 25 mg PO BID [facility] Last Admin: 06/26/16 21:52 Dose: 25 mg Metoprolol Tartrate (Lopressor Injection -) 5 mg IVPUSH Q4H PRN PRN Reason: HYPERTENSION Multivitamins/Minerals/Vitamin C (Tab-A-Vit -) 1 tab PO DAILY [facility] Last Admin: 06/26/16 10:00 Dose: 1 tab Ondansetron HCl (Zofran Injection) 4 mg IVPB Q6H PRN PRN Reason: NAUSEA Potassium Phos/Sodium Phos (Phos-Nak Packet -) 1 packet PO DAILY [facility] Last Admin: 06/26/16 10:02 Dose: 1 packet - Objective Vital Signs: Vital Signs Temperature 99.3 F 06/27/16 06:05 Pulse Rate 100 H 06/27/16 06:05 Respiratory Rate 16 06/27/16 06:05 Blood Pressure 146/71 06/27/16 06:05 O2 Sat by Pulse Oximetry (%) 92 L 06/26/16 21:00 Constitutional: Yes: No Distress Neck: Yes: WNL, Supple Cardiovascular: Yes: Regular Rate and Rhythm, S1, S2 Respiratory: Yes: WNL, CTA Bilaterally Gastrointestinal: Yes: Soft, Other (drain with pus). No: Tenderness, Tenderness , Epigastrium Edema: No Labs: CBC, BMP 06/27/16 07:45 06/27/16 07:45 INR, PTT INR 1.61 (0.82-1.09) H 06/23/16 05:00 Problem List - Problems (1) Pelvic fluid collection Code(s): R18.8 - OTHER ASCITES (2) Septic shock Code(s): A41.9 - SEPSIS, UNSPECIFIED ORGANISM R65.21 - SEVERE SEPSIS WITH SEPTIC SHOCK Assessment/Plan Laboratory Tests 06/23/16 06/25/16 06/27/16 05:00 06:00 07:45 WBC 13.0 H RBC 3.15 L Hgb 8.7 L Plt Count 359 ESR 123 H INR 1.61 H Creat Clearance w eGFR 06/27/16 07:45 WBC RBC Hgb Plt Count ESR INR Creat Clearance w eGFR > 60 Assessment Pelvic abscess clinically stable Minimal fever and WBC elevation Plan Discussed with Dr Adam wood benefits and need for further drainage Not acutely ill at this point. Consider CT reimage tomorrow rectal contrast Continue same antibiotics [place] [facility]
[2016-06-27] MEDS ORDERED: PT OWN MED DRAWER 7, Y5N ONE (10:28)
[2016-06-27] MEDS: MULTIVITAMINS (DAILY MVI) TABLET (FP) PO SCH (10:34)
[2016-06-27] MEDS: METOPROLOL TARTRATE 25 MG TABLET (FP) PO SCH ×2 (10:34→22:05)
[2016-06-27] MEDS: NAPH,MB-DB/K PH,MBDB POWDER PACKET PO SCH (10:34)
[2016-06-27] MEDS: ASCORBIC ACID 500 MG TABLET (FP) PO SCH (10:34)
[2016-06-27] MEDS: FOLIC ACID 1 MG TABLET (FP) PO SCH (10:34)
[2016-06-27] MEDS: CEFTRIAXONE 2G/100 ML IVPB SCH (10:35)
[2016-06-27] MEDS: CYANOCOBALAMIN (VITAMIN B-12) 1000 MCG/1 ML VIAL IM SCH (10:39)
[2016-06-27] MEDS: LACTOBACILLUS ACIDOPHILUS 1 EACH TAB (FP) PO SCH (10:50)
[2016-06-27 11:18] LABS: INR 1.73 (0.82-1.09); PROTHROMBIN TIME (PATIENT) 19.2 SEC (9.98-11.88)
[2016-06-27] MEDS: guaiFENesin 600 MG TABLET.ER (FP) PO SCH ×2 (11:50→22:05)
[2016-06-27] MEDS: ENOXAPARIN NA (PORCINE) 60 MG/0.6 ML DISP.SYRIN SQ SCH ×2 (12:24→22:05)
--- NOTE | 2016-06-27 12:44 | PN ---
Progress Note (short form) - Note Progress Note: No acute events On diet +BM Vital Signs Period Temp Pulse Resp BP Sys/Palafox Pulse Ox Last 24 Hr 99.3 F-99.9 F 100-109 16-18 106-146/50-71 92 Abd soft, JES in place- purulent CBC, BMP 06/27/16 07:45 06/27/16 07:45 Continue current care Continue antibiotics per ID IR consult if believed the patient needs another drain Mathis from midline wound removed, dressings placed No further surgical intervention Daily wound care Problem List - Problems (1) HTN (hypertension) Code(s): I10 - ESSENTIAL (PRIMARY) HYPERTENSION Qualifiers: Hypertension type: essential hypertension Qualified Code(s): I10 - Essential (primary) hypertension (2) Renal insufficiency Code(s): N28.9 - DISORDER OF KIDNEY AND URETER, UNSPECIFIED (3) Sepsis Code(s): A41.9 - SEPSIS, UNSPECIFIED ORGANISM Qualifiers: Sepsis type: Escherichia coli Qualified Code(s): A41.51 - Sepsis due to Escherichia coli [E. coli] (4) Bowel perforation Code(s): K63.1 - PERFORATION OF INTESTINE (NONTRAUMATIC) (5) Intra-abdominal abscess Code(s): K65.1 - PERITONEAL ABSCESS
--- NOTE | 2016-06-27 15:05 | PN ---
Progress Note (short form) - Note Progress Note: Denies CP or SOB. No abdominal pain. Some PO intake. No acute events overnight. Intake & Output 06/24/16 06/25/16 06/26/16 06/27/16 23:59 23:59 23:59 23:59 Intake Total 1388 1336 1004 586 Output Total 1820 10 5 Balance -432 1326 999 586 Weight 128 lb 7 oz 121 lb 8 oz 123 lb 9.6 oz 124 lb 3 oz Last Vital Signs Temp Pulse Resp BP Pulse Ox 98.5 F 100 H 22 134/67 95 06/27/16 10:00 06/27/16 10:00 06/27/16 10:00 06/27/16 10:00 06/27/16 09:00 Active Medications Acetaminophen (Tylenol -) 650 mg PO Q6H PRN PRN Reason: FEVER OR PAIN Last Admin: 06/25/16 16:42 Dose: 650 mg Amino Acids (Prosource No Carb Liquid Pkt) 30 ml PO BID@0800,1730 [facility] Last Admin: 06/27/16 08:49 Dose: 30 ml Ascorbic Acid (Vitamin C -) 500 mg PO DAILY [facility] Last Admin: 06/27/16 10:34 Dose: 500 mg Clonazepam (Klonopin -) 0.5 mg PO TID [facility] Last Admin: 06/27/16 14:53 Dose: 0.5 mg Clonidine HCl (Catapres Tts Patch -) 0.1 mg TD Q7D@1000 [facility] Cyanocobalamin (Vitamin B12 Injection -) 1,000 mcg IM DAILY [facility] Last Admin: 06/27/16 10:39 Dose: 1,000 mcg Digoxin (Lanoxin -) 0.125 mg PO Q2D [facility] Last Admin: 06/26/16 10:02 Dose: 0.125 mg Enoxaparin Sodium (Lovenox -) 60 mg SQ BID [facility] Last Admin: 06/27/16 12:24 Dose: 60 mg Ferrous Sulfate (Feosol -) 325 mg PO DAILY@0800 [facility] Last Admin: 06/27/16 08:49 Dose: 325 mg Folic Acid (Folic Acid -) 1 mg PO DAILY [facility] Last Admin: 06/27/16 10:34 Dose: 1 mg Guaifenesin (Mucinex -) 600 mg PO BID [facility] Last Admin: 06/27/16 11:50 Dose: 600 mg Amino Acids (Clinimix -) 1,000 mls @ 42 mls/hr IV ASDIR [facility] Last Admin: 06/27/16 12:25 Dose: Not Given Ceftriaxone Sodium (Rocephin 2gm Ivpb (Pre-Docked)) 100 mls @ 200 mls/hr IVPB DAILY [facility] Last Admin: 06/27/16 10:35 Dose: 200 mls/hr Metronidazole (Flagyl 500mg Premixed Ivpb -) 100 mls @ 100 mls/hr IVPB Q8H-IV [facility] Last Admin: 06/27/16 12:25 Dose: 100 mls/hr Lactobacillus Acidophilus (Bacid -) 1 tab PO DAILY [facility] Last Admin: 06/27/16 10:50 Dose: 1 tab Metoprolol Tartrate (Lopressor -) 25 mg PO BID [facility] Last Admin: 06/27/16 10:34 Dose: 25 mg Metoprolol Tartrate (Lopressor Injection -) 5 mg IVPUSH Q4H PRN PRN Reason: HYPERTENSION Multivitamins/Minerals/Vitamin C (Tab-A-Vit -) 1 tab PO DAILY [facility] Last Admin: 06/27/16 10:34 Dose: 1 tab Ondansetron HCl (Zofran Injection) 4 mg IVPB Q6H PRN PRN Reason: NAUSEA Potassium Phos/Sodium Phos (Phos-Nak Packet -) 1 packet PO DAILY [facility] Last Admin: 06/27/16 10:34 Dose: 1 packet Constitutional: Yes: Awake and alert Eyes: Yes: (-) Pallor HENT: Yes: WNL Cardiovascular: Yes: S1, S2 Respiratory: Yes: Few scattered rhonchi No: wheezes Gastrointestinal: Yes: (+) Bowel Sounds, (+) Drain intact ...Rectal Exam: Yes: Deferred Musculoskeletal: Yes: WNL Edema: Yes Edema: LUE: Trace Peripheral Pulses WNL: Yes (+2 bilateral pedal pulses) Integumentary: Yes: WNL Neurological: Yes: Alert Psychiatric: Yes: WNL Labs: Laboratory Results - last 24 hr 06/27/16 06/27/16 06/27/16 07:45 07:45 07:45 WBC 13.0 H RBC 3.15 L Hgb 8.7 L Hct 27.2 L MCV 86.6 MCHC 31.9 L RDW 14.8 Plt Count 359 MPV 7.2 L Neutrophils % 78.8 Lymphocytes % 10.4 Monocytes % 8.3 Eosinophils % 2.0 Basophils % 0.5 INR Sodium 143 Potassium 3.3 L Chloride 108 H Carbon Dioxide 28 Anion Gap 7 L BUN 15 Creatinine 0.7 Creat Clearance w eGFR > 60 Random Glucose 99 Calcium 7.5 L Total Bilirubin 0.2 D AST 18 ALT 13 Alkaline Phosphatase 57 Total Protein 5.6 L Albumin 1.8 L Blood Type A NEGATIVE Antibody Screen Positive H Antibody Identification Not Reportable Antigen Identification Y 06/27/16 10:15 WBC RBC Hgb Hct MCV MCHC RDW Plt Count MPV Neutrophils % Lymphocytes % Monocytes % Eosinophils % Basophils % INR 1.73 H Sodium Potassium Chloride Carbon Dioxide Anion Gap BUN Creatinine Creat Clearance w eGFR Random Glucose Calcium Total Bilirubin AST ALT Alkaline Phosphatase Total Protein Albumin Blood Type Antibody Screen Antibody Identification Antigen Identification Assessment/Plan S/P Exploratory laparotomy/abdominal washout/drainage of intraabdominal abscess/ enterotomy with removal of fecalith and primary repair due to perforated uterus. Additional findings: copious purulent drainage from the uterus, fibrinous exudate throughout small bowel. HTN HPL A-fib previously on Eliquis Dementia Anxiety O2 to maintain O2 saturation ABX per ID SCDs Pain control Incentive Spirometry PO as tolerated Dr Ybarra
--- NOTE | 2016-06-27 21:23 | PN ---
Progress Note, Physician Chief Complaint: 80 yo with multiple medical problems POD#12 s/p explor laparotomy, drainage of abd/pelvic abscess, enterotomy. JES drain in situ with minimal purulent drainage - Current Medication List Current Medications: Active Medications Acetaminophen (Tylenol -) 650 mg PO Q6H PRN PRN Reason: FEVER OR PAIN Last Admin: 06/25/16 16:42 Dose: 650 mg Amino Acids (Prosource No Carb Liquid Pkt) 30 ml PO BID@0800,1730 [facility] Last Admin: 06/27/16 18:22 Dose: 30 ml Ascorbic Acid (Vitamin C -) 500 mg PO DAILY [facility] Last Admin: 06/27/16 10:34 Dose: 500 mg Clonazepam (Klonopin -) 0.5 mg PO TID [facility] Last Admin: 06/27/16 14:53 Dose: 0.5 mg Clonidine HCl (Catapres Tts Patch -) 0.1 mg TD Q7D@1000 [facility] Cyanocobalamin (Vitamin B12 Injection -) 1,000 mcg IM DAILY [facility] Last Admin: 06/27/16 10:39 Dose: 1,000 mcg Digoxin (Lanoxin -) 0.125 mg PO Q2D [facility] Last Admin: 06/26/16 10:02 Dose: 0.125 mg Enoxaparin Sodium (Lovenox -) 60 mg SQ BID [facility] Last Admin: 06/27/16 12:24 Dose: 60 mg Ferrous Sulfate (Feosol -) 325 mg PO DAILY@0800 [facility] Last Admin: 06/27/16 08:49 Dose: 325 mg Folic Acid (Folic Acid -) 1 mg PO DAILY [facility] Last Admin: 06/27/16 10:34 Dose: 1 mg Guaifenesin (Mucinex -) 600 mg PO BID [facility] Last Admin: 06/27/16 11:50 Dose: 600 mg Amino Acids (Clinimix -) 1,000 mls @ 42 mls/hr IV ASDIR [facility] Last Admin: 06/27/16 12:25 Dose: Not Given Ceftriaxone Sodium (Rocephin 2gm Ivpb (Pre-Docked)) 100 mls @ 200 mls/hr IVPB DAILY [facility] Last Admin: 06/27/16 10:35 Dose: 200 mls/hr Metronidazole (Flagyl 500mg Premixed Ivpb -) 100 mls @ 100 mls/hr IVPB Q8H-IV [facility] Last Admin: 06/27/16 18:21 Dose: 100 mls/hr Lactobacillus Acidophilus (Bacid -) 1 tab PO DAILY [facility] Last Admin: 06/27/16 10:50 Dose: 1 tab Metoprolol Tartrate (Lopressor -) 25 mg PO BID [facility] Last Admin: 06/27/16 10:34 Dose: 25 mg Metoprolol Tartrate (Lopressor Injection -) 5 mg IVPUSH Q4H PRN PRN Reason: HYPERTENSION Multivitamins/Minerals/Vitamin C (Tab-A-Vit -) 1 tab PO DAILY [facility] Last Admin: 06/27/16 10:34 Dose: 1 tab Ondansetron HCl (Zofran Injection) 4 mg IVPB Q6H PRN PRN Reason: NAUSEA Potassium Phos/Sodium Phos (Phos-Nak Packet -) 1 packet PO DAILY [facility] Last Admin: 06/27/16 10:34 Dose: 1 packet - Objective Vital Signs: Vital Signs Temperature 99.3 F 06/27/16 17:43 Pulse Rate 111 H 06/27/16 17:43 Respiratory Rate 18 06/27/16 17:43 Blood Pressure 121/63 06/27/16 17:43 O2 Sat by Pulse Oximetry (%) 95 06/27/16 09:00 Gastrointestinal: Yes: Normal Bowel Sounds, Soft Wound/Incision: Yes: Well Approximated Labs: CBC, BMP 06/27/16 07:45 06/27/16 07:45 INR, PTT INR 1.73 (0.82-1.09) H 06/27/16 10:15 Problem List - Problems (1) Sepsis Assessment/Plan: Afibrile, Trending down WBC Code(s): A41.9 - SEPSIS, UNSPECIFIED ORGANISM Qualifiers: Qualified Code(s): A41.51 - Sepsis due to Escherichia coli [E. coli] (2) Anemia Assessment/Plan: Stable H/H Code(s): D64.9 - ANEMIA, UNSPECIFIED Qualifiers: Qualified Code(s): D63.8 - Anemia in other chronic diseases classified elsewhere (3) Intra-abdominal abscess Code(s): K65.1 - PERITONEAL ABSCESS (4) Septic shock Code(s): A41.9 - SEPSIS, UNSPECIFIED ORGANISM R65.21 - SEVERE SEPSIS WITH SEPTIC SHOCK Assessment/Plan consult appreciated overall improving WBC, stable anemia Cont IV Abx and managment as per Surgical team
[2016-06-28] MEDS: METRONIDAZOLE 500 MG PREMIXED 100 ML IVPB SCH ×3 (02:15→18:05)
[2016-06-28] MEDS: clonazePAM 0.5 MG TABLET PO SCH ×3 (06:19→21:16)
[2016-06-28 07:56] LABS: BASOPHIL 0.8 % (0-2.0); EOSINOPHIL 2.7 % (0-4.5); MCH 28.6 pg (25.7-33.7); MEAN CELL VOLUME 89.4 fl (80-96); MEAN PLT VOLUME 7.6 fl (7.5-11.1); NEUTROPHILS 73.7 % (42.8-82.8); PLATELET COUNT 340 K/MM3 (134-434); RDW 15.1 % (11.6-15.6); WHITE BLOOD COUNT 10.2 K/mm3 (4.0-10.0)
--- NOTE | 2016-06-28 08:14 | PN ---
Progress Note, Physician Chief Complaint: AWAKE, CONFUSED AWAITING CT SCAN ABD/PELVIS WITH RECTAL CONTRAST DRAINAGE MINIMAL TODAY FROM JES UTERINE ABSCESS - Current Medication List Current Medications: Active Medications Acetaminophen (Tylenol -) 650 mg PO Q6H PRN PRN Reason: FEVER OR PAIN Last Admin: 06/25/16 16:42 Dose: 650 mg Amino Acids (Prosource No Carb Liquid Pkt) 30 ml PO BID@0800,1730 [facility] Last Admin: 06/27/16 18:22 Dose: 30 ml Ascorbic Acid (Vitamin C -) 500 mg PO DAILY [facility] Last Admin: 06/27/16 10:34 Dose: 500 mg Clonazepam (Klonopin -) 0.5 mg PO TID [facility] Last Admin: 06/28/16 06:19 Dose: 0.5 mg Clonidine HCl (Catapres Tts Patch -) 0.1 mg TD Q7D@1000 [facility] Cyanocobalamin (Vitamin B12 Injection -) 1,000 mcg IM DAILY [facility] Last Admin: 06/27/16 10:39 Dose: 1,000 mcg Digoxin (Lanoxin -) 0.125 mg PO Q2D [facility] Last Admin: 06/26/16 10:02 Dose: 0.125 mg Enoxaparin Sodium (Lovenox -) 60 mg SQ BID [facility] Last Admin: 06/27/16 22:05 Dose: 60 mg Ferrous Sulfate (Feosol -) 325 mg PO DAILY@0800 [facility] Last Admin: 06/27/16 08:49 Dose: 325 mg Folic Acid (Folic Acid -) 1 mg PO DAILY [facility] Last Admin: 06/27/16 10:34 Dose: 1 mg Guaifenesin (Mucinex -) 600 mg PO BID [facility] Last Admin: 06/27/16 22:05 Dose: 600 mg Amino Acids (Clinimix -) 1,000 mls @ 42 mls/hr IV ASDIR [facility] Last Admin: 06/27/16 22:07 Dose: 42 mls/hr Ceftriaxone Sodium (Rocephin 2gm Ivpb (Pre-Docked)) 100 mls @ 200 mls/hr IVPB DAILY [facility] Last Admin: 06/27/16 10:35 Dose: 200 mls/hr Metronidazole (Flagyl 500mg Premixed Ivpb -) 100 mls @ 100 mls/hr IVPB Q8H-IV [facility] Last Admin: 06/28/16 02:15 Dose: 100 mls/hr Lactobacillus Acidophilus (Bacid -) 1 tab PO DAILY [facility] Last Admin: 06/27/16 10:50 Dose: 1 tab Metoprolol Tartrate (Lopressor -) 25 mg PO BID [facility] Last Admin: 06/27/16 22:05 Dose: 25 mg Metoprolol Tartrate (Lopressor Injection -) 5 mg IVPUSH Q4H PRN PRN Reason: HYPERTENSION Multivitamins/Minerals/Vitamin C (Tab-A-Vit -) 1 tab PO DAILY [facility] Last Admin: 06/27/16 10:34 Dose: 1 tab Ondansetron HCl (Zofran Injection) 4 mg IVPB Q6H PRN PRN Reason: NAUSEA Potassium Phos/Sodium Phos (Phos-Nak Packet -) 1 packet PO DAILY [facility] Last Admin: 06/27/16 10:34 Dose: 1 packet - Objective Vital Signs: Vital Signs Temperature 98.7 F 06/28/16 06:21 Pulse Rate 104 H 06/28/16 06:21 Respiratory Rate 20 06/28/16 06:21 Blood Pressure 128/59 06/28/16 06:21 O2 Sat by Pulse Oximetry (%) 95 06/27/16 09:00 Constitutional: Yes: Mild Distress Eyes: Yes: WNL HENT: Yes: WNL Neck: Yes: WNL Cardiovascular: Yes: Pulse Irregular Respiratory: Yes: Cough, Wheezes Gastrointestinal: Yes: WNL, Distention Genitourinary: Yes: Other Extremities: Yes: WNL Edema: No Peripheral Pulses WNL: Yes Integumentary: Yes: WNL Wound/Incision: Yes: Other (UTERINE DRAIN WITH MINIMAL 5CC PURELENT PUS/ DISCHARGE) ...Motor Strength: WNL Psychiatric: Yes: Agitated Labs: CBC, BMP 06/28/16 06:20 INR, PTT INR 1.73 (0.82-1.09) H 06/27/16 10:15 Problem List - Problems (1) Anxiety Code(s): F41.9 - ANXIETY DISORDER, UNSPECIFIED (2) HTN (hypertension) Code(s): I10 - ESSENTIAL (PRIMARY) HYPERTENSION Qualifiers: Hypertension type: essential hypertension Qualified Code(s): I10 - Essential (primary) hypertension (3) Hyperlipidemia Code(s): E78.5 - HYPERLIPIDEMIA, UNSPECIFIED Qualifiers: Hyperlipidemia type: pure hypercholesterolemia Qualified Code(s): E78.0 - Pure hypercholesterolemia (4) Rapid atrial fibrillation Code(s): I48.91 - UNSPECIFIED ATRIAL FIBRILLATION (5) Renal insufficiency Code(s): N28.9 - DISORDER OF KIDNEY AND URETER, UNSPECIFIED (6) Uterine abscess Code(s): N71.9 - INFLAMMATORY DISEASE OF UTERUS, UNSPECIFIED (7) Anxiety and depression Code(s): F41.9 - ANXIETY DISORDER, UNSPECIFIED F32.9 - MAJOR DEPRESSIVE DISORDER, SINGLE EPISODE, UNSPECIFIED Assessment/Plan CT SCAN ABD/PELVIS NOW IV ABX PER ID POOR CANDIDATE FOR SURGICAL OPTION WILL CONTINUE CONSERVATIVE TREATMENT AC WHEN CLEARED I CALLED THE FAMILY THIS MORNING AND LEFT A MESSAGE WILL RETURN THIS AFTERNOON AND RETRY WITH CT SCAN RESULT
[2016-06-28 08:51] LABS: ALBUMIN 1.5 g/dl (3.4-5.0); ALK PHOS 40 U/L (45-117); ANION GAP 11 (8-16); BILIRUBIN,TOTAL 0.3 mg/dL (0.2-1.0); CO2 22 mmol/L (21-32); CREATININE 0.7 mg/dL (0.55-1.02); SGOT/AST 14 U/L (15-37); SGPT/ALT 9 U/L (12-78); TOT PROT 4.8 g/dl (6.4-8.2)
[2016-06-28 09:05] LABS: GLUCOSE,RANDOM 594 mg/dL (74-106)
[2016-06-28 09:06] LABS: CALCIUM 6.3 mg/dL (8.5-10.1)
[2016-06-28] MEDS: METOPROLOL TARTRATE 25 MG TABLET (FP) PO SCH ×2 (11:02→21:16)
[2016-06-28] MEDS: FOLIC ACID 1 MG TABLET (FP) PO SCH (11:02)
[2016-06-28] MEDS: FERROUS SO4 325 MG TABLET (FP) PO SCH (11:02)
[2016-06-28] MEDS: AMINO ACIDS/PROTEIN HYDROLYS 30 ML LIQUID.PKT PO SCH ×2 (11:02→18:05)
[2016-06-28] MEDS: LACTOBACILLUS ACIDOPHILUS 1 EACH TAB (FP) PO SCH (11:02)
[2016-06-28] MEDS: MULTIVITAMINS (DAILY MVI) TABLET (FP) PO SCH (11:02)
[2016-06-28] MEDS: NAPH,MB-DB/K PH,MBDB POWDER PACKET PO SCH (11:03)
[2016-06-28] MEDS: guaiFENesin 600 MG TABLET.ER (FP) PO SCH ×2 (11:03→21:17)
[2016-06-28] MEDS: DIGOXIN 0.125 MG TABLET (FP) PO SCH (11:03)
[2016-06-28] MEDS: CYANOCOBALAMIN (VITAMIN B-12) 1000 MCG/1 ML VIAL IM SCH (11:04)
[2016-06-28] MEDS: ASCORBIC ACID 500 MG TABLET (FP) PO SCH (11:04)
[2016-06-28] MEDS: CEFTRIAXONE 2G/100 ML IVPB SCH (11:40)
[2016-06-28] MEDS: AMINO ACIDS 4.25%/D5W 1,000 ML IV SCH (12:40)
[2016-06-28] MEDS: ENOXAPARIN NA (PORCINE) 60 MG/0.6 ML DISP.SYRIN SQ SCH ×2 (12:40→21:17)
--- NOTE | 2016-06-28 12:45 | PN ---
Progress Note (short form) - Note Progress Note: PULMONARY Denies shortness of breath or chest pain. CT A/P repeated showing unchanged pelvic fluid/collection but now with increasing pleural effusions R>L. Last Vital Signs Temp Pulse Resp BP Pulse Ox 98.7 F 97 H 20 128/59 95 06/28/16 06:21 06/28/16 11:03 06/28/16 06:21 06/28/16 06:21 06/27/16 09:00 Gen: breathing nonlabored Heart: RRR Lung: decreased breath sounds at the base Abd: soft, nontender, +JES drain with purulent drainage Ext: + edema CBC, BMP 06/28/16 06:20 Active Medications Acetaminophen (Tylenol -) 650 mg PO Q6H PRN PRN Reason: FEVER OR PAIN Last Admin: 06/25/16 16:42 Dose: 650 mg Amino Acids (Prosource No Carb Liquid Pkt) 30 ml PO BID@0800,1730 [facility] Last Admin: 06/28/16 11:02 Dose: 30 ml Ascorbic Acid (Vitamin C -) 500 mg PO DAILY [facility] Last Admin: 06/28/16 11:04 Dose: 500 mg Clonazepam (Klonopin -) 0.5 mg PO TID [facility] Last Admin: 06/28/16 06:19 Dose: 0.5 mg Clonidine HCl (Catapres Tts Patch -) 0.1 mg TD Q7D@1000 [facility] Cyanocobalamin (Vitamin B12 Injection -) 1,000 mcg IM DAILY [facility] Last Admin: 06/28/16 11:04 Dose: 1,000 mcg Digoxin (Lanoxin -) 0.125 mg PO Q2D [facility] Last Admin: 06/28/16 11:03 Dose: 0.125 mg Enoxaparin Sodium (Lovenox -) 60 mg SQ BID [facility] Last Admin: 06/28/16 12:40 Dose: 60 mg Ferrous Sulfate (Feosol -) 325 mg PO DAILY@0800 [facility] Last Admin: 06/28/16 11:02 Dose: 325 mg Folic Acid (Folic Acid -) 1 mg PO DAILY [facility] Last Admin: 06/28/16 11:02 Dose: 1 mg Guaifenesin (Mucinex -) 600 mg PO BID [facility] Last Admin: 06/28/16 11:03 Dose: 600 mg Amino Acids (Clinimix -) 1,000 mls @ 42 mls/hr IV ASDIR [facility] Last Admin: 06/28/16 12:40 Dose: Not Given Ceftriaxone Sodium (Rocephin 2gm Ivpb (Pre-Docked)) 100 mls @ 200 mls/hr IVPB DAILY [facility] Last Admin: 06/28/16 11:40 Dose: 200 mls/hr Metronidazole (Flagyl 500mg Premixed Ivpb -) 100 mls @ 100 mls/hr IVPB Q8H-IV [facility] Last Admin: 06/28/16 12:39 Dose: 100 mls/hr Lactobacillus Acidophilus (Bacid -) 1 tab PO DAILY [facility] Last Admin: 06/28/16 11:02 Dose: 1 tab Metoprolol Tartrate (Lopressor -) 25 mg PO BID [facility] Last Admin: 06/28/16 11:02 Dose: 25 mg Metoprolol Tartrate (Lopressor Injection -) 5 mg IVPUSH Q4H PRN PRN Reason: HYPERTENSION Multivitamins/Minerals/Vitamin C (Tab-A-Vit -) 1 tab PO DAILY [facility] Last Admin: 06/28/16 11:02 Dose: 1 tab Ondansetron HCl (Zofran Injection) 4 mg IVPB Q6H PRN PRN Reason: NAUSEA Potassium Phos/Sodium Phos (Phos-Nak Packet -) 1 packet PO DAILY [facility] Last Admin: 06/28/16 11:03 Dose: 1 packet A/P Perforated Uterus Intra-abdominal Abscess s/p ex-lap/Abscess drainage/washout/enterotomy with SB fecalith removal/primary repair Sepsis Atrial Fibrillation HTN Anxiety Dementia Pleural Effusions - pleural effusions likely multifactorial due to IVF, hypoalbuminemia, reactive from intra-abdominal process - continue antibiotics - monitor drain output - rate controlled - continue anticoagulation - PO per surgery - pain control - DVT prophylaxis
--- NOTE | 2016-06-28 12:56 | CONSULT ---
Admitting History and Physical - Primary Care Physician PCP: Vanessa Oneal - Admission History Source: Medical Record Limitations to Obtaining History: Clinical Condition - Past Medical History OPERATING ROOM RN: Yes: Dementia Cardiovascular: Yes: AFIB, HTN, Hyperlipdemia Renal/: Yes: UTI (hx of ) Heme/Onc: Yes: Anemia Psych: Yes: Anxiety Musculoskeletal: Yes: Osteoarthritis - Past Surgical History Past Surgical History: Yes: Mastectomy (Right- for Cancer) - Smoking History Smoking history: Former smoker Have you smoked in the past 12 months: No If you are a former smoker, when did you quit?: 1984 - Alcohol/Substance Use Hx Alcohol Use: No History - Admission Reason For Visit: DIVERTICULITIS OF COLON W/PERFORATION - Diagnostics X-ray: Report Reviewed CT Scan: Report Reviewed - General Mental Status: Awake and Alert, Confused Attention: Distractible (Kept eyes closed. Wanted to be left alone tp sleep.) Ability to Follow Directions: Fair - Hearing Hearing: Functional Hearing: Normal Speech Evaluation - Communication Primary Language: [place] Communication: Yes: Within Normal Limits, Simple Responses - Speech Production Able to Make Needs Known: Yes: WNL Intelligibility: Yes: WNL - Speech Characteristics Voice Loudness: Normal Voice Pitch: Yes: Normal Voice Phonatory-based Quality: Yes: Normal Speech Pattern: Normal Speech Clarity: < 100% Nasal Resonance: Normal Articulation: Yes: Precise - Swallow Evaluation/Bedside Assessment Current Nutritional Intake: Soft, Thin Liquids Dentition: Yes: Adequate, Missing Teeth Laryngeal Movement: Able to Palpate A-P Transit: WFL Coughing/Throat Clear: Yes (with aND WITHOUT PO INTAKE) Recommendations - Speech Evaluation, Impression/Plan Impression: Confused although oriented to [facility]. Refused most po trials for me. Accepted two trials of thin liquid with cough response following one trial. Assessment inconcluisive due to poor cooperative. Nursing concerned about aspiration. - Dysphagia Impressions/Plan Dysphagia Impressions: Risk of Aspiration, Ongoing Evaluation *Silent aspiration: cannot be R/O at bedside - Recommendations Diet Consistency: Regular (soft, easy to chew) Liquids: [place] Thick Supplement: Magic Cup
[2016-06-28 13:08] LABS: ALBUMIN 1.9 g/dl (3.4-5.0); ALK PHOS 56 U/L (45-117); ANION GAP 9 (8-16); BILIRUBIN,TOTAL 0.2 mg/dL (0.2-1.0); CALCIUM 7.6 mg/dL (8.5-10.1); CO2 27 mmol/L (21-32); CREATININE 0.7 mg/dL (0.55-1.02); GLUCOSE,RANDOM 124 mg/dL (74-106); SGOT/AST 18 U/L (15-37); SGPT/ALT 11 U/L (12-78); TOT PROT 5.9 g/dl (6.4-8.2)
[2016-06-28] MEDS ORDERED: POTASSIUM CHLORIDE TABS 10 MEQ TABLET.ER (FP) PO ONE (13:43)
[2016-06-28] MEDS ORDERED: POTASSIUM CHLORIDE TABS 20 MEQ TABLET.ER (FP) PO ONE ×2 (13:43→17:30)
--- NOTE | 2016-06-28 15:36 | CONSULT ---
Consult Consult Specialty:: Nephrology Reason for Consultation:: hyponatremia - History of Present Illness Chief Complaint: abdominal pain History of Present Illness: Pt is an 80 year old female with history of a-fib, HTN and dementia who was initially admitted with abdominal pain. I was called to evaluate patient today for abnormal labs including hyponatremia. She is awake and appears comfortable. She denies shortness of breath. She is on clinimix for nutrition. She had an ex- lap with abdominal washout during the admission. Chart was reviewed. - History Source History Provided By: Medical Record - Past Medical History FAMILY MEDICINE RESIDENT: Yes: Dementia Cardio/Vascular: Yes: AFIB, HTN, Hyperlipdemia Renal/: Yes: UTI (hx of ) Psych: Yes: Anxiety Musculoskeletal: Yes: Osteoarthritis - Past Surgical History Past Surgical History: Yes: Mastectomy (Right- for Cancer) Additional Surgical History: Surgery for bowel obstruction in 2000- possible resection per the son - Alcohol/Substance Use Hx Alcohol Use: No - Smoking History Smoking history: Former smoker Have you smoked in the past 12 months: No If you are a former smoker, when did you quit?: 1984 - Social History Usual Living Arrangement: Assisted Living Home Medications - Allergies Allergies/Adverse Reactions: Allergies Allergy/AdvReac Type Severity Reaction Status Date / Time Penicillins Allergy Verified 06/15/16 01:05 - Home Medications Home Medications: Ambulatory Orders Digoxin [Lanoxin -] 0.125 mg PO DAILY tablet 01/16/15 Magnesium Oxide [Mag-Ox -] 400 mg PO BID tablet 01/16/15 Metoprolol Succinate [Toprol XL -] 50 mg PO DAILY tab.sr.24h 01/16/15 Multivitamins [Multivit ([facility] Formul[facility])] 1 tab PO DAILY tab 01/16/15 Apixaban [Eliquis] 2.5 mg PO BID 05/28/16 Citalopram Hydrobromide [Celexa -] 10 mg PO DAILY 05/28/16 Clonazepam [Klonopin -] 0.5 mg PO TID 05/28/16 Clonidine HCl 0.1 mg PO BID 05/28/16 Acetaminophen [Tylenol .Regular Strength -] 650 mg PO Q6H PRN #0 tablet Rosuvastatin [Crestor -] 5 mg PO HS tablet 06/01/16 Oxycodone HCl [Roxicodone -] 5 mg PO ONCE 06/15/16 Family Disease History - Family Disease History Family History: Unable to Obtain Review of Systems - Review of Systems Constitutional: reports: Malaise Eyes: reports: No Symptoms HENT: reports: No Symptoms Neck: reports: No Symptoms Cardiovascular: denies: Edema, Shortness of Breath Respiratory: denies: Snoring, SOB Musculoskeletal: reports: Muscle Weakness Endocrine: reports: No Symptoms Hematology/Lymphatic: reports: No Symptoms Physical Exam Vital Signs: Vital Signs Temperature 98.7 F 06/28/16 06:21 Pulse Rate 97 H 06/28/16 11:03 Respiratory Rate 20 06/28/16 06:21 Blood Pressure 128/59 06/28/16 06:21 O2 Sat by Pulse Oximetry (%) 95 06/27/16 09:00 Constitutional: Yes: Anxious Eyes: Yes: Conjunctiva Clear HENT: Yes: Atraumatic Neck: Yes: Supple Cardiovascular: Yes: S1, S2 Respiratory: Yes: CTA Bilaterally Gastrointestinal: Yes: Tenderness Musculoskeletal: Yes: Muscle Weakness Edema: No Neurological: Yes: Confusion Labs: Laboratory Tests 06/28/16 06:20 Sodium 124 L* D Potassium 3.0 L Chloride 91 L D Carbon Dioxide 22 D BUN 18 Creatinine 0.7 Imaging - Results Cat Scan: Report Reviewed Problem List - Problems (1) Afib Code(s): I48.91 - UNSPECIFIED ATRIAL FIBRILLATION (2) Anemia Code(s): D64.9 - ANEMIA, UNSPECIFIED Qualifiers: Other causes of anemia: chronic disease, other (3) Anxiety and depression Code(s): F41.9 - ANXIETY DISORDER, UNSPECIFIED F32.9 - MAJOR DEPRESSIVE DISORDER, SINGLE EPISODE, UNSPECIFIED (4) Dementia Code(s): F03.90 - UNSPECIFIED DEMENTIA WITHOUT BEHAVIORAL DISTURBANCE Assessment/Plan Current Medications Generic Name Dose Route Start Last Admin Trade Name Freq PRN Reason Stop Dose Admin Acetaminophen 650 mg 06/23/16 12:18 06/25/16 16:42 Tylenol - PO 650 mg Q6H PRN Administration FEVER OR PAIN Amino Acids 30 ml 06/23/16 17:30 06/28/16 11:02 Prosource No Carb Liquid Pkt PO 30 ml BID@0800,1730 DANA Administration Ascorbic Acid 500 mg 06/24/16 10:00 06/28/16 11:04 Vitamin C - PO 500 mg DAILY DANA Administration Clonazepam 0.5 mg 06/23/16 14:00 06/28/16 14:36 Klonopin - PO 0.5 mg TID DANA Administration Clonidine HCl 0.1 mg 06/30/16 10:00 Catapres Tts Patch - TD Q7D@1000 [facility] Cyanocobalamin 1,000 mcg 06/24/16 10:00 06/28/16 11:04 Vitamin B12 Injection - IM 1,000 mcg DAILY DANA Administration Digoxin 0.125 mg 06/24/16 10:00 06/28/16 11:03 Lanoxin - PO 0.125 mg Q2D DANA Administration Enoxaparin Sodium 60 mg 06/23/16 22:00 06/28/16 12:40 Lovenox - SQ 60 mg BID DANA Administration Ferrous Sulfate 325 mg 06/24/16 08:00 06/28/16 11:02 Feosol - PO 325 mg DAILY@0800 DANA Administration Folic Acid 1 mg 06/24/16 10:00 06/28/16 11:02 Folic Acid - PO 1 mg DAILY DANA Administration Guaifenesin 600 mg 06/23/16 22:00 06/28/16 11:03 Mucinex - PO 600 mg BID DANA Administration Amino Acids 1,000 mls @ 42 mls/hr 06/23/16 12:18 06/28/16 12:40 Clinimix - IV Not Given ASDIR DANA Ceftriaxone Sodium 100 mls @ 200 mls/hr 06/24/16 10:00 06/28/16 11:40 Rocephin 2gm Ivpb (Pre-Docked) IVPB 200 mls/hr DAILY DANA Administration Metronidazole 100 mls @ 100 mls/hr 06/23/16 18:00 06/28/16 12:39 Flagyl 500mg Premixed Ivpb - IVPB 100 mls/hr Q8H-IV DANA Administration Lactobacillus Acidophilus 1 tab 06/24/16 10:00 06/28/16 11:02 Bacid - PO 1 tab DAILY DANA Administration Metoprolol Tartrate 25 mg 06/23/16 22:00 06/28/16 11:02 Lopressor - PO 25 mg BID DANA Administration Metoprolol Tartrate 5 mg 06/23/16 12:18 Lopressor Injection - IVPUSH Q4H PRN HYPERTENSION Multivitamins/Minerals/Vitamin C 1 tab 06/24/16 10:00 06/28/16 11:02 Tab-A-Vit - PO 1 tab DAILY DANA Administration Ondansetron HCl 4 mg 06/23/16 12:18 Zofran Injection IVPB Q6H PRN NAUSEA Potassium Phos/Sodium Phos 1 packet 06/24/16 10:00 06/28/16 11:03 Phos-Nak Packet - PO 1 packet DAILY DANA Administration Impression 1. Hyponatremia 2. HTN 3. dementia 4. a-fib 5. intra-abdominal abscess 6. sepsis 7. pleural effusions Plan - suspect lab error as venipuncture site is above clinimix - will repeat labs and follow up - chart reviewed - meds reviewed - check mag level Dr Eid
[2016-06-28] MEDS ORDERED: FUROSEMIDE 40 MG/4 ML INJECTABLE VIAL IVPUSH ONE (16:18)
--- NOTE | 2016-06-28 17:14 | PN ---
Progress Note (short form) - Note Progress Note: Laboratory Tests 06/28/16 12:15 Sodium 144 D Potassium 3.3 L Chloride 108 H D Carbon Dioxide 27 D Anion Gap 9 BUN 20 H Creatinine 0.7 Creat Clearance w eGFR > 60 Random Glucose 124 H D - sodium is in normal range - con clinimix - supplement potassium - check mag level Dr Eid Problem List - Problems (1) Afib Code(s): I48.91 - UNSPECIFIED ATRIAL FIBRILLATION (2) Anemia Code(s): D64.9 - ANEMIA, UNSPECIFIED Qualifiers: Other causes of anemia: chronic disease, other (3) Anxiety and depression Code(s): F41.9 - ANXIETY DISORDER, UNSPECIFIED F32.9 - MAJOR DEPRESSIVE DISORDER, SINGLE EPISODE, UNSPECIFIED (4) Dementia Code(s): F03.90 - UNSPECIFIED DEMENTIA WITHOUT BEHAVIORAL DISTURBANCE
--- NOTE | 2016-06-28 17:52 | PN ---
Progress Note, Physician Chief Complaint: Pt talks confusedly, defensively (eg immediately asking why I am asking her to go for surgery, though nothing was mentioned about this subject). History of Present Illness: 80yr old white woman presented to ED via EMS from [facility] with c/ o abd pain. According to patient son, patient has been having abd pain all day starting at 6pm, pain progressed at 1015pm- patient given oxycontin with no relief- patient sent to this ED for evaluation. Son inform appeals writer that patient recently admitted May 27 for "blood infection" and d/c to [facility] for rehab but has not gotten out of bed per son. Patient also has not had a BM today. Denies any other complaints at this time. - Current Medication List Current Medications: Active Medications Acetaminophen (Tylenol -) 650 mg PO Q6H PRN PRN Reason: FEVER OR PAIN Last Admin: 06/25/16 16:42 Dose: 650 mg Amino Acids (Prosource No Carb Liquid Pkt) 30 ml PO BID@0800,1730 [facility] Last Admin: 06/28/16 11:02 Dose: 30 ml Ascorbic Acid (Vitamin C -) 500 mg PO DAILY [facility] Last Admin: 06/28/16 11:04 Dose: 500 mg Clonazepam (Klonopin -) 0.5 mg PO TID [facility] Last Admin: 06/28/16 14:36 Dose: 0.5 mg Clonidine HCl (Catapres Tts Patch -) 0.1 mg TD Q7D@1000 [facility] Cyanocobalamin (Vitamin B12 Injection -) 1,000 mcg IM DAILY [facility] Last Admin: 06/28/16 11:04 Dose: 1,000 mcg Digoxin (Lanoxin -) 0.125 mg PO Q2D [facility] Last Admin: 06/28/16 11:03 Dose: 0.125 mg Enoxaparin Sodium (Lovenox -) 60 mg SQ BID [facility] Last Admin: 06/28/16 12:40 Dose: 60 mg Ferrous Sulfate (Feosol -) 325 mg PO DAILY@0800 [facility] Last Admin: 06/28/16 11:02 Dose: 325 mg Folic Acid (Folic Acid -) 1 mg PO DAILY [facility] Last Admin: 06/28/16 11:02 Dose: 1 mg Guaifenesin (Mucinex -) 600 mg PO BID [facility] Last Admin: 06/28/16 11:03 Dose: 600 mg Ceftriaxone Sodium (Rocephin 2gm Ivpb (Pre-Docked)) 100 mls @ 200 mls/hr IVPB DAILY [facility] Last Admin: 06/28/16 11:40 Dose: 200 mls/hr Metronidazole (Flagyl 500mg Premixed Ivpb -) 100 mls @ 100 mls/hr IVPB Q8H-IV [facility] Last Admin: 06/28/16 12:39 Dose: 100 mls/hr Lactobacillus Acidophilus (Bacid -) 1 tab PO DAILY [facility] Last Admin: 06/28/16 11:02 Dose: 1 tab Metoprolol Tartrate (Lopressor -) 25 mg PO BID [facility] Last Admin: 06/28/16 11:02 Dose: 25 mg Metoprolol Tartrate (Lopressor Injection -) 5 mg IVPUSH Q4H PRN PRN Reason: HYPERTENSION Multivitamins/Minerals/Vitamin C (Tab-A-Vit -) 1 tab PO DAILY [facility] Last Admin: 06/28/16 11:02 Dose: 1 tab Ondansetron HCl (Zofran Injection) 4 mg IVPB Q6H PRN PRN Reason: NAUSEA Potassium Phos/Sodium Phos (Phos-Nak Packet -) 1 packet PO DAILY [facility] Last Admin: 06/28/16 11:03 Dose: 1 packet - Objective Vital Signs: Vital Signs Temperature 98.7 F 06/28/16 16:20 Pulse Rate 105 H 06/28/16 16:20 Respiratory Rate 18 06/28/16 16:20 Blood Pressure 141/75 06/28/16 16:20 O2 Sat by Pulse Oximetry (%) 95 06/27/16 09:00 Constitutional: Yes: Anxious Eyes: Yes: WNL HENT: Yes: Other (poor dentition) Neck: Yes: WNL Cardiovascular: Yes: Pulse Irregular Respiratory: Yes: Regular Gastrointestinal: Yes: Soft ...Rectal Exam: Yes: Deferred Genitourinary: Yes: Anuria Breast(s): Yes: WNL Musculoskeletal: Yes: Muscle Weakness Extremities: Yes: Cool Edema: No Peripheral Pulses WNL: No Peripheral Pulses: Left Doralis Pedis: 1+, Right Dorsalis Pedis: 1+ Neurological: Yes: Confusion, Weakness Psychiatric: Yes: Other Labs: CBC, BMP 06/28/16 06:20 06/28/16 12:15 INR, PTT INR 1.73 (0.82-1.09) H 06/27/16 10:15 Abnormal Lab Results 06/20/16 06/28/16 06/28/16 16:50 06:20 06:20 WBC 10.2 H RBC 2.89 L Hgb 8.3 L Hct 25.8 L Sodium 124 L* D Potassium 3.0 L Chloride 91 L D BUN Random Glucose 594 H* D Calcium 6.3 L* Magnesium AST 14 L D ALT 9 L D Alkaline Phosphatase 40 L D Total Protein 4.8 L Albumin 1.5 L Crossmatch See Detail 06/28/16 06/28/16 12:15 21:30 WBC RBC Hgb Hct Sodium Potassium 3.3 L Chloride 108 H D BUN 20 H Random Glucose 124 H D Calcium 7.6 L D Magnesium 1.5 L D AST ALT 11 L D Alkaline Phosphatase Total Protein 5.9 L D Albumin 1.9 L D Crossmatch Problem List - Problems (1) Afib Assessment/Plan: Decreased digoxin to 0.125 mg every other day (level 1.47); keep level 0.5-1.0. Continue metoprolol. On Lovenox until PO anticoagulation restarted (consider NOAC). Replete K+; f/u Mg level. Code(s): I48.91 - UNSPECIFIED ATRIAL FIBRILLATION (2) Intra-abdominal abscess Assessment/Plan: Drainage f/u assessment with surgeon. As discussed with Dr. Cordon (Solar Installation Supervisor), pt is at high risk for hysterectomy; pt and family defer surgery presently. Code(s): K65.1 - PERITONEAL ABSCESS (3) Anxiety Code(s): F41.9 - ANXIETY DISORDER, UNSPECIFIED (4) HTN (hypertension) Assessment/Plan: On metoprolol, and clonidine restarted. Risk of rebound hypertension when abruptly stopping clonidine (exacerbated when also on metoprolol). Code(s): I10 - ESSENTIAL (PRIMARY) HYPERTENSION Qualifiers: Hypertension type: essential hypertension Qualified Code(s): I10 - Essential (primary) hypertension (5) Sepsis Assessment/Plan: on antibiotics; followed by ID. Maintain hydration. LVEF WNL by ECHO. Code(s): A41.9 - SEPSIS, UNSPECIFIED ORGANISM Qualifiers: Sepsis type: Escherichia coli Qualified Code(s): A41.51 - Sepsis due to Escherichia coli [E. coli] (6) Anemia Code(s): D64.9 - ANEMIA, UNSPECIFIED Qualifiers: Other causes of anemia: chronic disease, other (7) GI tract abscess Assessment/Plan: CT abdomen today; results pending. Surgical f/u. Code(s): K63.0 - ABSCESS OF INTESTINE (8) Hypokalemia Assessment/Plan: f/u level after repletion. F/u Mg2+ level, and replete if necessary. Code(s): E87.6 - HYPOKALEMIA
--- NOTE | 2016-06-28 20:40 | PN ---
Progress Note, Physician Chief Complaint: 80 yo POD#13 s/p exploratory laparotomy, drainage of abd/pelvic abscess, enterotomy. JES drain in situ with minimal purulent drainage appears more alert and responsive today - Current Medication List Current Medications: Active Medications Acetaminophen (Tylenol -) 650 mg PO Q6H PRN PRN Reason: FEVER OR PAIN Last Admin: 06/25/16 16:42 Dose: 650 mg Amino Acids (Prosource No Carb Liquid Pkt) 30 ml PO BID@0800,1730 [facility] Last Admin: 06/28/16 18:05 Dose: 30 ml Ascorbic Acid (Vitamin C -) 500 mg PO DAILY [facility] Last Admin: 06/28/16 11:04 Dose: 500 mg Clonazepam (Klonopin -) 0.5 mg PO TID [facility] Last Admin: 06/28/16 14:36 Dose: 0.5 mg Clonidine HCl (Catapres Tts Patch -) 0.1 mg TD Q7D@1000 [facility] Cyanocobalamin (Vitamin B12 Injection -) 1,000 mcg IM DAILY [facility] Last Admin: 06/28/16 11:04 Dose: 1,000 mcg Digoxin (Lanoxin -) 0.125 mg PO Q2D [facility] Last Admin: 06/28/16 11:03 Dose: 0.125 mg Enoxaparin Sodium (Lovenox -) 60 mg SQ BID [facility] Last Admin: 06/28/16 12:40 Dose: 60 mg Ferrous Sulfate (Feosol -) 325 mg PO DAILY@0800 [facility] Last Admin: 06/28/16 11:02 Dose: 325 mg Folic Acid (Folic Acid -) 1 mg PO DAILY [facility] Last Admin: 06/28/16 11:02 Dose: 1 mg Guaifenesin (Mucinex -) 600 mg PO BID [facility] Last Admin: 06/28/16 11:03 Dose: 600 mg Ceftriaxone Sodium (Rocephin 2gm Ivpb (Pre-Docked)) 100 mls @ 200 mls/hr IVPB DAILY [facility] Last Admin: 06/28/16 11:40 Dose: 200 mls/hr Metronidazole (Flagyl 500mg Premixed Ivpb -) 100 mls @ 100 mls/hr IVPB Q8H-IV [facility] Last Admin: 06/28/16 18:05 Dose: 100 mls/hr Lactobacillus Acidophilus (Bacid -) 1 tab PO DAILY [facility] Last Admin: 06/28/16 11:02 Dose: 1 tab Metoprolol Tartrate (Lopressor -) 25 mg PO BID [facility] Last Admin: 06/28/16 11:02 Dose: 25 mg Metoprolol Tartrate (Lopressor Injection -) 5 mg IVPUSH Q4H PRN PRN Reason: HYPERTENSION Multivitamins/Minerals/Vitamin C (Tab-A-Vit -) 1 tab PO DAILY [facility] Last Admin: 06/28/16 11:02 Dose: 1 tab Ondansetron HCl (Zofran Injection) 4 mg IVPB Q6H PRN PRN Reason: NAUSEA Potassium Phos/Sodium Phos (Phos-Nak Packet -) 1 packet PO DAILY [facility] Last Admin: 06/28/16 11:03 Dose: 1 packet - Objective Vital Signs: Vital Signs Temperature 98.7 F 06/28/16 16:20 Pulse Rate 105 H 06/28/16 16:20 Respiratory Rate 18 06/28/16 16:20 Blood Pressure 141/75 06/28/16 16:20 O2 Sat by Pulse Oximetry (%) 95 06/28/16 09:00 Constitutional: Yes: Well Nourished Neck: Yes: WNL Respiratory: Yes: Regular Gastrointestinal: Yes: WNL, Normal Bowel Sounds Wound/Incision: Yes: Clean/Dry Psychiatric: Yes: Alert, Oriented Labs: CBC, BMP 06/28/16 06:20 06/28/16 12:15 INR, PTT INR 1.73 (0.82-1.09) H 06/27/16 10:15 - ....Imaging Cat Scan: Report Reviewed (Persistent R pelvic ~7cm collection) Problem List - Problems (1) Sepsis Assessment/Plan: Improving, trending down WBC, Stable vitals Code(s): A41.9 - SEPSIS, UNSPECIFIED ORGANISM Qualifiers: Qualified Code(s): A41.51 - Sepsis due to Escherichia coli [E. coli] (2) Anemia Assessment/Plan: Stable H/H Code(s): D64.9 - ANEMIA, UNSPECIFIED Qualifiers: Qualified Code(s): D63.8 - Anemia in other chronic diseases classified elsewhere (3) Intra-abdominal abscess Assessment/Plan: Persistent R hemipelvic collection Plan as per IR Code(s): K65.1 - PERITONEAL ABSCESS (4) Septic shock Code(s): A41.9 - SEPSIS, UNSPECIFIED ORGANISM R65.21 - SEVERE SEPSIS WITH SEPTIC SHOCK Assessment/Plan overall improving WBC, stable anemia, stable pelvic collection Cont IV Abx and managment as per Surgical team
[2016-06-28] MEDS ORDERED: PT OWN MED DRAWER 7, Y5N ONE (21:38)
[2016-06-29] MEDS: METRONIDAZOLE 500 MG PREMIXED 100 ML IVPB SCH ×3 (02:03→18:44)
[2016-06-29] MEDS: clonazePAM 0.5 MG TABLET PO SCH ×3 (05:55→22:38)
[2016-06-29 07:56] LABS: MCH 27.7 pg (25.7-33.7); MCHC 31.8 g/dl (32.0-36.0); MEAN PLT VOLUME 7.7 fl (7.5-11.1); PLATELET COUNT 405 K/MM3 (134-434); RDW 14.8 % (11.6-15.6); WHITE BLOOD COUNT 12.2 K/mm3 (4.0-10.0)
[2016-06-29 08:33] LABS: ALK PHOS 55 U/L (45-117); ANION GAP 9 (8-16); BILIRUBIN,TOTAL 0.3 mg/dL (0.2-1.0); CALCIUM 7.8 mg/dL (8.5-10.1); CO2 27 mmol/L (21-32); CREATININE 0.8 mg/dL (0.55-1.02); GLUCOSE,RANDOM 95 mg/dL (74-106); MAGNESIUM 1.8 mg/dL (1.8-2.4); PHOSPHOROUS 3.1 mg/dL (2.5-4.9); SGOT/AST 18 U/L (15-37); SGPT/ALT 12 U/L (12-78); TOT PROT 6.1 g/dl (6.4-8.2)
--- NOTE | 2016-06-29 09:54 | PN ---
Progress Note, Physician Chief Complaint: AWAKE IN [employer] +APPETITE - Current Medication List Current Medications: Active Medications Acetaminophen (Tylenol -) 650 mg PO Q6H PRN PRN Reason: FEVER OR PAIN Last Admin: 06/25/16 16:42 Dose: 650 mg Amino Acids (Prosource No Carb Liquid Pkt) 30 ml PO BID@0800,1730 [facility] Last Admin: 06/28/16 18:05 Dose: 30 ml Ascorbic Acid (Vitamin C -) 500 mg PO DAILY [facility] Last Admin: 06/28/16 11:04 Dose: 500 mg Clonazepam (Klonopin -) 0.5 mg PO TID [facility] Last Admin: 06/29/16 05:55 Dose: 0.5 mg Clonidine HCl (Catapres Tts Patch -) 0.1 mg TD Q7D@1000 [facility] Cyanocobalamin (Vitamin B12 Injection -) 1,000 mcg IM DAILY [facility] Last Admin: 06/28/16 11:04 Dose: 1,000 mcg Digoxin (Lanoxin -) 0.125 mg PO Q2D [facility] Last Admin: 06/28/16 11:03 Dose: 0.125 mg Enoxaparin Sodium (Lovenox -) 60 mg SQ BID [facility] Last Admin: 06/28/16 21:17 Dose: 60 mg Ferrous Sulfate (Feosol -) 325 mg PO DAILY@0800 [facility] Last Admin: 06/28/16 11:02 Dose: 325 mg Folic Acid (Folic Acid -) 1 mg PO DAILY [facility] Last Admin: 06/28/16 11:02 Dose: 1 mg Guaifenesin (Mucinex -) 600 mg PO BID [facility] Last Admin: 06/28/16 21:17 Dose: 600 mg Ceftriaxone Sodium (Rocephin 2gm Ivpb (Pre-Docked)) 100 mls @ 200 mls/hr IVPB DAILY [facility] Last Admin: 06/28/16 11:40 Dose: 200 mls/hr Metronidazole (Flagyl 500mg Premixed Ivpb -) 100 mls @ 100 mls/hr IVPB Q8H-IV [facility] Last Admin: 06/29/16 02:03 Dose: 100 mls/hr Lactobacillus Acidophilus (Bacid -) 1 tab PO DAILY [facility] Last Admin: 06/28/16 11:02 Dose: 1 tab Metoprolol Tartrate (Lopressor -) 25 mg PO BID [facility] Last Admin: 06/28/16 21:16 Dose: 25 mg Metoprolol Tartrate (Lopressor Injection -) 5 mg IVPUSH Q4H PRN PRN Reason: HYPERTENSION Multivitamins/Minerals/Vitamin C (Tab-A-Vit -) 1 tab PO DAILY [facility] Last Admin: 06/28/16 11:02 Dose: 1 tab Ondansetron HCl (Zofran Injection) 4 mg IVPB Q6H PRN PRN Reason: NAUSEA Potassium Phos/Sodium Phos (Phos-Nak Packet -) 1 packet PO DAILY [facility] Last Admin: 06/28/16 11:03 Dose: 1 packet - Objective Vital Signs: Vital Signs Temperature 97.9 F 06/29/16 07:41 Pulse Rate 76 06/29/16 07:47 Respiratory Rate 20 06/29/16 07:41 Blood Pressure 132/49 06/29/16 07:41 O2 Sat by Pulse Oximetry (%) 95 06/28/16 21:00 Constitutional: Yes: Mild Distress Eyes: Yes: WNL HENT: Yes: WNL Neck: Yes: WNL Cardiovascular: Yes: Pulse Irregular Respiratory: Yes: Rhonchi Gastrointestinal: Yes: Tenderness ...Rectal Exam: Yes: Other Genitourinary: Yes: Incontinence Musculoskeletal: Yes: Muscle Weakness Extremities: Yes: WNL Edema: No Peripheral Pulses WNL: Yes Integumentary: Yes: Other Wound/Incision: Yes: Dressing Removed, Draining (MILKY DISCHARGE IN JES DRAIN) Neurological: Yes: Pre-Existing Deficit ...Motor Strength: LLE, RLE Psychiatric: Yes: Other Labs: CBC, BMP 06/29/16 06:20 06/29/16 06:20 INR, PTT INR 1.73 (0.82-1.09) H 06/27/16 10:15 Problem List - Problems (1) Anxiety Code(s): F41.9 - ANXIETY DISORDER, UNSPECIFIED (2) HTN (hypertension) Code(s): I10 - ESSENTIAL (PRIMARY) HYPERTENSION Qualifiers: Hypertension type: essential hypertension Qualified Code(s): I10 - Essential (primary) hypertension (3) Hyperlipidemia Code(s): E78.5 - HYPERLIPIDEMIA, UNSPECIFIED Qualifiers: Hyperlipidemia type: pure hypercholesterolemia Qualified Code(s): E78.0 - Pure hypercholesterolemia (4) Rapid atrial fibrillation Code(s): I48.91 - UNSPECIFIED ATRIAL FIBRILLATION (5) Renal insufficiency Code(s): N28.9 - DISORDER OF KIDNEY AND URETER, UNSPECIFIED (6) Uterine abscess Code(s): N71.9 - INFLAMMATORY DISEASE OF UTERUS, UNSPECIFIED (7) Anxiety and depression Code(s): F41.9 - ANXIETY DISORDER, UNSPECIFIED F32.9 - MAJOR DEPRESSIVE DISORDER, SINGLE EPISODE, UNSPECIFIED Assessment/Plan CONTINUE ANTIBIOTICS, NO INTERVENTION AT THIS TIME OOB TO CHAIR, PT, IV LASIX, NEBS, CXR TOMORROW CT SCAN ABD/PELVIS REVIWED IV ABX PER ID POOR CANDIDATE FOR SURGICAL OPTION WILL CONTINUE CONSERVATIVE TREATMENT AC WHEN CLEARED I CALLED THE FAMILY AND SPOKE WITH MIYA HE IS AWARE OF HIS MOTHER'S CONDITION AND IS AGREEMENT WITH CURRENT PLAN.
[2016-06-29] MEDS: ENOXAPARIN NA (PORCINE) 60 MG/0.6 ML DISP.SYRIN SQ SCH ×2 (10:44→22:39)
[2016-06-29] MEDS: AMINO ACIDS/PROTEIN HYDROLYS 30 ML LIQUID.PKT PO SCH ×2 (10:45→18:44)
[2016-06-29] MEDS: METOPROLOL TARTRATE 25 MG TABLET (FP) PO SCH ×2 (10:45→22:38)
[2016-06-29] MEDS: MULTIVITAMINS (DAILY MVI) TABLET (FP) PO SCH (10:46)
[2016-06-29] MEDS: LACTOBACILLUS ACIDOPHILUS 1 EACH TAB (FP) PO SCH (10:46)
[2016-06-29] MEDS: guaiFENesin 600 MG TABLET.ER (FP) PO SCH ×2 (10:47→22:38)
[2016-06-29] MEDS: FOLIC ACID 1 MG TABLET (FP) PO SCH (10:47)
[2016-06-29] MEDS: NAPH,MB-DB/K PH,MBDB POWDER PACKET PO SCH (10:47)
[2016-06-29] MEDS: FERROUS SO4 325 MG TABLET (FP) PO SCH (10:47)
[2016-06-29] MEDS: ASCORBIC ACID 500 MG TABLET (FP) PO SCH (10:48)
[2016-06-29] MEDS: CEFTRIAXONE 2G/100 ML IVPB SCH (10:50)
[2016-06-29] MEDS: CYANOCOBALAMIN (VITAMIN B-12) 1000 MCG/1 ML VIAL IM SCH (10:50)
[2016-06-29] MEDS ORDERED: FUROSEMIDE 40 MG/4 ML INJECTABLE VIAL IVPUSH ONE (11:00)
--- NOTE | 2016-06-29 12:45 | PN ---
Progress Note, Physician Chief Complaint: 80 yo POD#14 s/p exploratory laparotomy, drainage of abd/pelvic abscess, enterotomy. JES drain in situ with minimal purulent drainage appears more alert and responsive today - Current Medication List Current Medications: Active Medications Acetaminophen (Tylenol -) 650 mg PO Q6H PRN PRN Reason: FEVER OR PAIN Last Admin: 06/25/16 16:42 Dose: 650 mg Amino Acids (Prosource No Carb Liquid Pkt) 30 ml PO BID@0800,1730 [facility] Last Admin: 06/29/16 10:45 Dose: 30 ml Ascorbic Acid (Vitamin C -) 500 mg PO DAILY [facility] Last Admin: 06/29/16 10:48 Dose: 500 mg Clonazepam (Klonopin -) 0.5 mg PO TID [facility] Last Admin: 06/29/16 05:55 Dose: 0.5 mg Clonidine HCl (Catapres Tts Patch -) 0.1 mg TD Q7D@1000 [facility] Cyanocobalamin (Vitamin B12 Injection -) 1,000 mcg IM DAILY [facility] Last Admin: 06/29/16 10:50 Dose: 1,000 mcg Digoxin (Lanoxin -) 0.125 mg PO Q2D [facility] Last Admin: 06/28/16 11:03 Dose: 0.125 mg Enoxaparin Sodium (Lovenox -) 60 mg SQ BID [facility] Last Admin: 06/29/16 10:44 Dose: 60 mg Ferrous Sulfate (Feosol -) 325 mg PO DAILY@0800 [facility] Last Admin: 06/29/16 10:47 Dose: 325 mg Folic Acid (Folic Acid -) 1 mg PO DAILY [facility] Last Admin: 06/29/16 10:47 Dose: 1 mg Guaifenesin (Mucinex -) 600 mg PO BID [facility] Last Admin: 06/29/16 10:47 Dose: 600 mg Ceftriaxone Sodium (Rocephin 2gm Ivpb (Pre-Docked)) 100 mls @ 200 mls/hr IVPB DAILY [facility] Last Admin: 06/29/16 10:50 Dose: 200 mls/hr Metronidazole (Flagyl 500mg Premixed Ivpb -) 100 mls @ 100 mls/hr IVPB Q8H-IV [facility] Last Admin: 06/29/16 10:48 Dose: 100 mls/hr Lactobacillus Acidophilus (Bacid -) 1 tab PO DAILY [facility] Last Admin: 06/29/16 10:46 Dose: 1 tab Metoprolol Tartrate (Lopressor -) 25 mg PO BID [facility] Last Admin: 06/29/16 10:45 Dose: 25 mg Metoprolol Tartrate (Lopressor Injection -) 5 mg IVPUSH Q4H PRN PRN Reason: HYPERTENSION Multivitamins/Minerals/Vitamin C (Tab-A-Vit -) 1 tab PO DAILY [facility] Last Admin: 06/29/16 10:46 Dose: 1 tab Ondansetron HCl (Zofran Injection) 4 mg IVPB Q6H PRN PRN Reason: NAUSEA Potassium Phos/Sodium Phos (Phos-Nak Packet -) 1 packet PO DAILY [facility] Last Admin: 06/29/16 10:47 Dose: 1 packet - Objective Vital Signs: Vital Signs Temperature 97.7 F 06/29/16 10:00 Pulse Rate 106 H 06/29/16 10:00 Respiratory Rate 36 H 06/29/16 10:00 Blood Pressure 135/72 06/29/16 10:00 O2 Sat by Pulse Oximetry (%) 94 L 06/29/16 11:21 Gastrointestinal: Yes: Normal Bowel Sounds, Soft Wound/Incision: Yes: Clean/Dry, Well Approximated Labs: CBC, BMP 06/29/16 06:20 06/29/16 06:20 INR, PTT INR 1.73 (0.82-1.09) H 06/27/16 10:15 Problem List - Problems (1) Sepsis Code(s): A41.9 - SEPSIS, UNSPECIFIED ORGANISM Qualifiers: Qualified Code(s): A41.51 - Sepsis due to Escherichia coli [E. coli] (2) Anemia Code(s): D64.9 - ANEMIA, UNSPECIFIED Qualifiers: Qualified Code(s): D63.8 - Anemia in other chronic diseases classified elsewhere (3) Intra-abdominal abscess Code(s): K65.1 - PERITONEAL ABSCESS (4) Septic shock Code(s): A41.9 - SEPSIS, UNSPECIFIED ORGANISM R65.21 - SEVERE SEPSIS WITH SEPTIC SHOCK Assessment/Plan overall improving WBC, stable anemia Cont IV Abx and managment as per Medical team
--- NOTE | 2016-06-29 14:08 | PN ---
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 Taking some juice. Pt has a cough. Selected Entries 06/27/16 06/27/16 06/27/16 12:52 15:05 18:54 Breakfast 50% Lunch 25% Supper 25% Temperature 06/28/16 06/28/16 06/28/16 06:21 10:00 11:52 Breakfast 50% Lunch Supper Temperature 98.7 F 98.8 F 06/28/16 06/28/16 06/28/16 16:20 18:30 22:00 Breakfast Lunch Supper 25% 25% Temperature 98.7 F 06/29/16 06/29/16 07:41 10:00 Breakfast Lunch Supper Temperature 97.9 F 97.7 F REC: trial of nectar thick liquid. Ensure compact
--- NOTE | 2016-06-29 18:11 | PN ---
Progress Note, Physician History of Present Illness: Pt seen and examined at bedside. She is awake and appears comfortable. - Current Medication List Current Medications: Active Medications Acetaminophen (Tylenol -) 650 mg PO Q6H PRN PRN Reason: FEVER OR PAIN Last Admin: 06/25/16 16:42 Dose: 650 mg Amino Acids (Prosource No Carb Liquid Pkt) 30 ml PO BID@0800,1730 [facility] Last Admin: 06/29/16 10:45 Dose: 30 ml Ascorbic Acid (Vitamin C -) 500 mg PO DAILY [facility] Last Admin: 06/29/16 10:48 Dose: 500 mg Clonazepam (Klonopin -) 0.5 mg PO TID [facility] Last Admin: 06/29/16 14:33 Dose: 0.5 mg Clonidine HCl (Catapres Tts Patch -) 0.1 mg TD Q7D@1000 [facility] Cyanocobalamin (Vitamin B12 Injection -) 1,000 mcg IM DAILY [facility] Last Admin: 06/29/16 10:50 Dose: 1,000 mcg Digoxin (Lanoxin -) 0.125 mg PO Q2D [facility] Last Admin: 06/28/16 11:03 Dose: 0.125 mg Enoxaparin Sodium (Lovenox -) 60 mg SQ BID [facility] Last Admin: 06/29/16 10:44 Dose: 60 mg Ferrous Sulfate (Feosol -) 325 mg PO DAILY@0800 [facility] Last Admin: 06/29/16 10:47 Dose: 325 mg Folic Acid (Folic Acid -) 1 mg PO DAILY [facility] Last Admin: 06/29/16 10:47 Dose: 1 mg Guaifenesin (Mucinex -) 600 mg PO BID [facility] Last Admin: 06/29/16 10:47 Dose: 600 mg Ceftriaxone Sodium (Rocephin 2gm Ivpb (Pre-Docked)) 100 mls @ 200 mls/hr IVPB DAILY [facility] Last Admin: 06/29/16 10:50 Dose: 200 mls/hr Metronidazole (Flagyl 500mg Premixed Ivpb -) 100 mls @ 100 mls/hr IVPB Q8H-IV [facility] Last Admin: 06/29/16 10:48 Dose: 100 mls/hr Lactobacillus Acidophilus (Bacid -) 1 tab PO DAILY [facility] Last Admin: 06/29/16 10:46 Dose: 1 tab Megestrol Acetate (Megace Oral Suspension -) 400 mg PO DAILY [facility] Metoprolol Tartrate (Lopressor -) 25 mg PO BID [facility] Last Admin: 06/29/16 10:45 Dose: 25 mg Metoprolol Tartrate (Lopressor Injection -) 5 mg IVPUSH Q4H PRN PRN Reason: HYPERTENSION Mirtazapine (Remeron -) 7.5 mg PO [facility] Multivitamins/Minerals/Vitamin C (Tab-A-Vit -) 1 tab PO DAILY [facility] Last Admin: 06/29/16 10:46 Dose: 1 tab Ondansetron HCl (Zofran Injection) 4 mg IVPB Q6H PRN PRN Reason: NAUSEA Potassium Phos/Sodium Phos (Phos-Nak Packet -) 1 packet PO DAILY [facility] Last Admin: 06/29/16 10:47 Dose: 1 packet - Objective Vital Signs: Vital Signs Temperature 99 F 06/29/16 16:20 Pulse Rate 104 H 06/29/16 16:20 Respiratory Rate 18 06/29/16 16:20 Blood Pressure 114/64 06/29/16 16:20 O2 Sat by Pulse Oximetry (%) 94 L 06/29/16 11:21 Constitutional: Yes: Calm Eyes: Yes: Conjunctiva Clear HENT: Yes: Atraumatic Cardiovascular: Yes: S1, S2 Respiratory: Yes: CTA Bilaterally Gastrointestinal: Yes: Soft Genitourinary: Yes: Incontinence Musculoskeletal: Yes: Muscle Weakness Edema: No Neurological: Yes: Confusion Psychiatric: Yes: Oriented Labs: CBC, BMP 06/29/16 06:20 06/29/16 06:20 INR, PTT INR 1.73 (0.82-1.09) H 06/27/16 10:15 Problem List - Problems (1) Afib Code(s): I48.91 - UNSPECIFIED ATRIAL FIBRILLATION (2) Anemia Code(s): D64.9 - ANEMIA, UNSPECIFIED Qualifiers: Qualified Code(s): D63.8 - Anemia in other chronic diseases classified elsewhere (3) Anxiety and depression Code(s): F41.9 - ANXIETY DISORDER, UNSPECIFIED F32.9 - MAJOR DEPRESSIVE DISORDER, SINGLE EPISODE, UNSPECIFIED (4) Dementia Code(s): F03.90 - UNSPECIFIED DEMENTIA WITHOUT BEHAVIORAL DISTURBANCE Assessment/Plan Current Medications Generic Name Dose Route Start Last Admin Trade Name Freq PRN Reason Stop Dose Admin Acetaminophen 650 mg 06/23/16 12:18 06/25/16 16:42 Tylenol - PO 650 mg Q6H PRN Administration FEVER OR PAIN Amino Acids 30 ml 06/23/16 17:30 06/29/16 10:45 Prosource No Carb Liquid Pkt PO 30 ml BID@0800,1730 [facility] Administration Ascorbic Acid 500 mg 06/24/16 10:00 06/29/16 10:48 Vitamin C - PO 500 mg DAILY [facility] Administration Clonazepam 0.5 mg 06/23/16 14:00 06/29/16 14:33 Klonopin - PO 0.5 mg TID [facility] Administration Clonidine HCl 0.1 mg 06/30/16 10:00 Catapres Tts Patch - TD Q7D@1000 [facility] Cyanocobalamin 1,000 mcg 06/24/16 10:00 06/29/16 10:50 Vitamin B12 Injection - IM 1,000 mcg DAILY [facility] Administration Digoxin 0.125 mg 06/24/16 10:00 06/28/16 11:03 Lanoxin - PO 0.125 mg Q2D [facility] Administration Enoxaparin Sodium 60 mg 06/23/16 22:00 06/29/16 10:44 Lovenox - SQ 60 mg BID [facility] Administration Ferrous Sulfate 325 mg 06/24/16 08:00 06/29/16 10:47 Feosol - PO 325 mg DAILY@0800 [facility] Administration Folic Acid 1 mg 06/24/16 10:00 06/29/16 10:47 Folic Acid - PO 1 mg DAILY [facility] Administration Guaifenesin 600 mg 06/23/16 22:00 06/29/16 10:47 Mucinex - PO 600 mg BID [facility] Administration Ceftriaxone Sodium 100 mls @ 200 mls/hr 06/24/16 10:00 06/29/16 10:50 Rocephin 2gm Ivpb (Pre-Docked) IVPB 200 mls/hr DAILY [facility] Administration Metronidazole 100 mls @ 100 mls/hr 06/23/16 18:00 06/29/16 10:48 Flagyl 500mg Premixed Ivpb - IVPB 100 mls/hr Q8H-IV [facility] Administration Lactobacillus Acidophilus 1 tab 06/24/16 10:00 06/29/16 10:46 Bacid - PO 1 tab DAILY [facility] Administration Megestrol Acetate 400 mg 06/30/16 10:00 Megace Oral Suspension - PO DAILY [facility] Metoprolol Tartrate 25 mg 06/23/16 22:00 06/29/16 10:45 Lopressor - PO 25 mg BID [facility] Administration Metoprolol Tartrate 5 mg 06/23/16 12:18 Lopressor Injection - IVPUSH Q4H PRN HYPERTENSION Mirtazapine 7.5 mg 06/29/16 22:00 Remeron - PO HS [facility] Multivitamins/Minerals/Vitamin C 1 tab 06/24/16 10:00 06/29/16 10:46 Tab-A-Vit - PO 1 tab DAILY [facility] Administration Ondansetron HCl 4 mg 06/23/16 12:18 Zofran Injection IVPB Q6H PRN NAUSEA Potassium Phos/Sodium Phos 1 packet 06/24/16 10:00 06/29/16 10:47 Phos-Nak Packet - PO 1 packet DAILY [facility] Administration Laboratory Tests 06/29/16 06:20 Potassium 4.0 D Phosphorus 3.1 D Magnesium 1.8 Impression 1. Hyponatremia 2. HTN 3. dementia 4. a-fib 5. intra-abdominal abscess 6. sepsis 7. pleural effusions Plan - lytes are stable - monitor bloodwork - no acute change in management - pt tolerated dose of lasix - will follow PRN Dr Eid
[2016-06-29] MEDS: MIRTAZAPINE 15 MG TABLET (FP) PO SCH (22:39)
[2016-06-30] MEDS: METRONIDAZOLE 500 MG PREMIXED 100 ML IVPB SCH ×3 (02:02→17:23)
[2016-06-30] MEDS: clonazePAM 0.5 MG TABLET PO SCH ×3 (06:28→21:37)
[2016-06-30 09:17] LABS: MCH 27.5 pg (25.7-33.7); MCHC 31.8 g/dl (32.0-36.0); MEAN CELL VOLUME 86.7 fl (80-96); MEAN PLT VOLUME 7.7 fl (7.5-11.1); PLATELET COUNT 379 K/MM3 (134-434); RDW 15.2 % (11.6-15.6); WHITE BLOOD COUNT 13.9 K/mm3 (4.0-10.0)
[2016-06-30 09:44] LABS: ALBUMIN 1.9 g/dl (3.4-5.0); CALCIUM 7.8 mg/dL (8.5-10.1); CREATININE 0.9 mg/dL (0.55-1.02); MAGNESIUM 1.8 mg/dL (1.8-2.4); PHOSPHOROUS 3.3 mg/dL (2.5-4.9)
[2016-06-30 09:47] LABS: BILIRUBIN,TOTAL 0.2 mg/dL (0.2-1.0); TOT PROT 5.9 g/dl (6.4-8.2)
[2016-06-30] MEDS ORDERED: guaiFENesin/CODEINE 5 ML UNIT-DOSE CUPS PO PRN (09:59)
--- NOTE | 2016-06-30 09:59 | PN ---
Progress Note (short form) - Note Progress Note: PULMONARY Denies shortness of breath or chest pain but with nonproductive cough. Last Vital Signs Temp Pulse Resp BP Pulse Ox 99.2 F 100 H 20 112/62 94 L 06/30/16 09:51 06/30/16 09:51 06/30/16 09:51 06/30/16 09:51 06/29/16 21:00 Gen: breathing nonlabored Heart: RRR Lung: decreased breath sounds at the base Abd: soft, nontender, +JES drain with purulent drainage Ext: + edema CBC, BMP 06/30/16 08:20 06/30/16 08:20 Active Medications Acetaminophen (Tylenol -) 650 mg PO Q6H PRN PRN Reason: FEVER OR PAIN Last Admin: 06/25/16 16:42 Dose: 650 mg Amino Acids (Prosource No Carb Liquid Pkt) 30 ml PO BID@0800,1730 [facility] Last Admin: 06/29/16 18:44 Dose: 30 ml Ascorbic Acid (Vitamin C -) 500 mg PO DAILY [facility] Last Admin: 06/29/16 10:48 Dose: 500 mg Clonazepam (Klonopin -) 0.5 mg PO TID [facility] Last Admin: 06/30/16 06:28 Dose: 0.5 mg Clonidine HCl (Catapres Tts Patch -) 0.1 mg TD Q7D@1000 [facility] Cyanocobalamin (Vitamin B12 Injection -) 1,000 mcg IM DAILY [facility] Last Admin: 06/29/16 10:50 Dose: 1,000 mcg Digoxin (Lanoxin -) 0.125 mg PO Q2D [facility] Last Admin: 06/28/16 11:03 Dose: 0.125 mg Enoxaparin Sodium (Lovenox -) 60 mg SQ BID [facility] Last Admin: 06/29/16 22:39 Dose: 60 mg Ferrous Sulfate (Feosol -) 325 mg PO DAILY@0800 [facility] Last Admin: 06/29/16 10:47 Dose: 325 mg Folic Acid (Folic Acid -) 1 mg PO DAILY [facility] Last Admin: 06/29/16 10:47 Dose: 1 mg Guaifenesin (Mucinex -) 600 mg PO BID [facility] Last Admin: 06/29/16 22:38 Dose: 600 mg Ceftriaxone Sodium (Rocephin 2gm Ivpb (Pre-Docked)) 100 mls @ 200 mls/hr IVPB DAILY [facility] Last Admin: 06/29/16 10:50 Dose: 200 mls/hr Metronidazole (Flagyl 500mg Premixed Ivpb -) 100 mls @ 100 mls/hr IVPB Q8H-IV [facility] Last Admin: 06/30/16 02:02 Dose: 100 mls/hr Lactobacillus Acidophilus (Bacid -) 1 tab PO DAILY [facility] Last Admin: 06/29/16 10:46 Dose: 1 tab Megestrol Acetate (Megace Oral Suspension -) 400 mg PO DAILY [facility] Metoprolol Tartrate (Lopressor -) 25 mg PO BID [facility] Last Admin: 06/29/16 22:38 Dose: 25 mg Metoprolol Tartrate (Lopressor Injection -) 5 mg IVPUSH Q4H PRN PRN Reason: HYPERTENSION Mirtazapine (Remeron -) 7.5 mg PO HS [facility] Last Admin: 06/29/16 22:39 Dose: 7.5 mg Multivitamins/Minerals/Vitamin C (Tab-A-Vit -) 1 tab PO DAILY [facility] Last Admin: 06/29/16 10:46 Dose: 1 tab Ondansetron HCl (Zofran Injection) 4 mg IVPB Q6H PRN PRN Reason: NAUSEA Potassium Phos/Sodium Phos (Phos-Nak Packet -) 1 packet PO DAILY [facility] Last Admin: 06/29/16 10:47 Dose: 1 packet A/P Perforated Uterus Intra-abdominal Abscess s/p ex-lap/Abscess drainage/washout/enterotomy with SB fecalith removal/primary repair Sepsis Atrial Fibrillation HTN Anxiety Dementia Pleural Effusions - will add cough suppressants - pleural effusions likely multifactorial due to IVF, hypoalbuminemia, reactive from intra-abdominal process - lasix as needed - continue antibiotics - monitor drain output - rate controlled - continue anticoagulation - PO per surgery - pain control - DVT prophylaxis
[2016-06-30] MEDS ORDERED: cloNIDine-TTS 0.1 MG/24 HRS PATCH.TDWK TD SCH (10:00)
[2016-06-30] MEDS ORDERED: PT OWN MED DRAWER 7, Y5N ONE (10:03)
[2016-06-30] MEDS: AMINO ACIDS/PROTEIN HYDROLYS 30 ML LIQUID.PKT PO SCH ×2 (10:07→17:23)
[2016-06-30] MEDS: FERROUS SO4 325 MG TABLET (FP) PO SCH (10:07)
[2016-06-30] MEDS: LACTOBACILLUS ACIDOPHILUS 1 EACH TAB (FP) PO SCH (10:07)
[2016-06-30] MEDS: FOLIC ACID 1 MG TABLET (FP) PO SCH (10:08)
[2016-06-30] MEDS: DIGOXIN 0.125 MG TABLET (FP) PO SCH (10:08)
[2016-06-30] MEDS: MEGESTROL ACETATE 400 MG/10 ML UNIT DOSE CUP PO SCH (10:09)
[2016-06-30] MEDS: METOPROLOL TARTRATE 25 MG TABLET (FP) PO SCH ×2 (10:09→21:37)
[2016-06-30] MEDS: guaiFENesin 600 MG TABLET.ER (FP) PO SCH (10:09)
[2016-06-30] MEDS: ENOXAPARIN NA (PORCINE) 60 MG/0.6 ML DISP.SYRIN SQ SCH ×2 (10:09→21:37)
[2016-06-30] MEDS: ASCORBIC ACID 500 MG TABLET (FP) PO SCH (10:10)
[2016-06-30] MEDS: CYANOCOBALAMIN (VITAMIN B-12) 1000 MCG/1 ML VIAL IM SCH (10:10)
[2016-06-30] MEDS: NAPH,MB-DB/K PH,MBDB POWDER PACKET PO SCH (10:10)
[2016-06-30] MEDS ORDERED: POTASSIUM CHLORIDE TABS 20 MEQ TABLET.ER (FP) PO ONE ×2 (11:29→15:50)
[2016-06-30] MEDS: CEFTRIAXONE 2G/100 ML IVPB SCH (11:32)
--- NOTE | 2016-06-30 11:32 | PN ---
Progress Note, Physician Chief Complaint: IN BED TIRED AND LETHARGIC EVENTS AND CHARTS REVIEWED - Current Medication List Current Medications: Active Medications Acetaminophen (Tylenol -) 650 mg PO Q6H PRN PRN Reason: FEVER OR PAIN Last Admin: 06/25/16 16:42 Dose: 650 mg Amino Acids (Prosource No Carb Liquid Pkt) 30 ml PO BID@0800,1730 [facility] Last Admin: 06/30/16 10:07 Dose: 30 ml Ascorbic Acid (Vitamin C -) 500 mg PO DAILY [facility] Last Admin: 06/30/16 10:10 Dose: 500 mg Clonazepam (Klonopin -) 0.5 mg PO TID [facility] Last Admin: 06/30/16 06:28 Dose: 0.5 mg Clonidine HCl (Catapres Tts Patch -) 0.1 mg TD Q7D@1000 [facility] Last Admin: 06/30/16 10:07 Dose: 0.1 mg Cyanocobalamin (Vitamin B12 Injection -) 1,000 mcg IM DAILY [facility] Last Admin: 06/30/16 10:10 Dose: 1,000 mcg Digoxin (Lanoxin -) 0.125 mg PO Q2D [facility] Last Admin: 06/30/16 10:08 Dose: 0.125 mg Enoxaparin Sodium (Lovenox -) 60 mg SQ BID [facility] Last Admin: 06/30/16 10:09 Dose: 60 mg Ferrous Sulfate (Feosol -) 325 mg PO DAILY@0800 [facility] Last Admin: 06/30/16 10:07 Dose: 325 mg Folic Acid (Folic Acid -) 1 mg PO DAILY [facility] Last Admin: 06/30/16 10:08 Dose: 1 mg Guaifenesin/Codeine Phosphate (Robitussin Ac -) 5 ml PO TID PRN PRN Reason: COUGH Ceftriaxone Sodium (Rocephin 2gm Ivpb (Pre-Docked)) 100 mls @ 200 mls/hr IVPB DAILY [facility] Last Admin: 06/29/16 10:50 Dose: 200 mls/hr Metronidazole (Flagyl 500mg Premixed Ivpb -) 100 mls @ 100 mls/hr IVPB Q8H-IV [facility] Last Admin: 06/30/16 10:08 Dose: 100 mls/hr Lactobacillus Acidophilus (Bacid -) 1 tab PO DAILY [facility] Last Admin: 06/30/16 10:07 Dose: 1 tab Megestrol Acetate (Megace Oral Suspension -) 400 mg PO DAILY [facility] Last Admin: 06/30/16 10:09 Dose: 400 mg Metoprolol Tartrate (Lopressor -) 25 mg PO BID [facility] Last Admin: 06/30/16 10:09 Dose: 25 mg Metoprolol Tartrate (Lopressor Injection -) 5 mg IVPUSH Q4H PRN PRN Reason: HYPERTENSION Mirtazapine (Remeron -) 7.5 mg PO [facility] Last Admin: 06/29/16 22:39 Dose: 7.5 mg Multivitamins/Minerals/Vitamin C (Tab-A-Vit -) 1 tab PO DAILY [facility] Last Admin: 06/29/16 10:46 Dose: 1 tab Ondansetron HCl (Zofran Injection) 4 mg IVPB Q6H PRN PRN Reason: NAUSEA Potassium Phos/Sodium Phos (Phos-Nak Packet -) 1 packet PO DAILY [facility] Last Admin: 06/30/16 10:10 Dose: 1 packet - Objective Vital Signs: Vital Signs Temperature 99.2 F 06/30/16 09:51 Pulse Rate 100 H 06/30/16 10:08 Respiratory Rate 06/30/16 09:51 Blood Pressure 112/62 06/30/16 09:51 O2 Sat by Pulse Oximetry (%) 94 L 06/29/16 21:00 Constitutional: Yes: Mild Distress Eyes: Yes: WNL HENT: Yes: WNL Neck: Yes: WNL Cardiovascular: Yes: Pulse Irregular Respiratory: Yes: Rhonchi Gastrointestinal: Yes: Distention, Tenderness Genitourinary: Yes: Incontinence Musculoskeletal: Yes: Muscle Weakness Extremities: Yes: WNL Edema: No Peripheral Pulses WNL: Yes Integumentary: Yes: Other Wound/Incision: Yes: Dressing Dry and Intact, Other Neurological: Yes: Other ...Motor Strength: LLE, RLE Psychiatric: Yes: Agitated Labs: CBC, BMP 06/30/16 08:20 06/30/16 08:20 INR, PTT INR 1.73 (0.82-1.09) H 06/27/16 10:15 Problem List - Problems (1) Anxiety Code(s): F41.9 - ANXIETY DISORDER, UNSPECIFIED (2) HTN (hypertension) Code(s): I10 - ESSENTIAL (PRIMARY) HYPERTENSION Qualifiers: Qualified Code(s): I10 - Essential (primary) hypertension (3) Hyperlipidemia Code(s): E78.5 - HYPERLIPIDEMIA, UNSPECIFIED Qualifiers: Qualified Code(s): E78.0 - Pure hypercholesterolemia (4) Rapid atrial fibrillation Code(s): I48.91 - UNSPECIFIED ATRIAL FIBRILLATION (5) Renal insufficiency Code(s): N28.9 - DISORDER OF KIDNEY AND URETER, UNSPECIFIED (6) Uterine abscess Code(s): N71.9 - INFLAMMATORY DISEASE OF UTERUS, UNSPECIFIED (7) Anxiety and depression Code(s): F41.9 - ANXIETY DISORDER, UNSPECIFIED F32.9 - MAJOR DEPRESSIVE DISORDER, SINGLE EPISODE, UNSPECIFIED Assessment/Plan APPETITE IS POOR , ADDED REMERON AND MEGACE NEEDS TO BE OOB TO CHAIR WITH INCENTIVE SPIROMETRY AND CHEST PT. CONTINUE ANTIBIOTICS, NO INTERVENTION AT THIS TIME OOB TO CHAIR, PT, IV LASIX, NEBS, CXR TOMORROW CT SCAN ABD/PELVIS REVIWED IV ABX PER ID POOR CANDIDATE FOR SURGICAL OPTION WILL CONTINUE CONSERVATIVE TREATMENT AC WHEN CLEARED I CALLED THE FAMILY AND SPOKE WITH MIYA HE IS AWARE OF HIS MOTHER'S CONDITION AND IS AGREEMENT WITH CURRENT PLAN.
[2016-06-30] MEDS ORDERED: ALBUTEROL SO4 2.5/IPRATROPIUM 0.5 INH SOL 3 ML VIAL.NEB. NEB PRN (11:33)
[2016-06-30] MEDS: MULTIVITAMINS (DAILY MVI) TABLET (FP) PO SCH (11:33)
--- NOTE | 2016-06-30 15:33 | PN ---
Progress Note, Physician History of Present Illness: Pt seen and examined at bedside. She appears agitated. - Current Medication List Current Medications: Active Medications Acetaminophen (Tylenol -) 650 mg PO Q6H PRN PRN Reason: FEVER OR PAIN Last Admin: 06/25/16 16:42 Dose: 650 mg Albuterol/Ipratropium (Duoneb -) 1 amp NEB Q6H PRN PRN Reason: SHORTNESS OF BREATH Amino Acids (Prosource No Carb Liquid Pkt) 30 ml PO BID@0800,1730 [facility] Last Admin: 06/30/16 10:07 Dose: 30 ml Ascorbic Acid (Vitamin C -) 500 mg PO DAILY [facility] Last Admin: 06/30/16 10:10 Dose: 500 mg Clonazepam (Klonopin -) 0.5 mg PO TID [facility] Last Admin: 06/30/16 14:05 Dose: 0.5 mg Clonidine HCl (Catapres Tts Patch -) 0.1 mg TD Q7D@1000 [facility] Last Admin: 06/30/16 10:07 Dose: 0.1 mg Cyanocobalamin (Vitamin B12 Injection -) 1,000 mcg IM DAILY [facility] Last Admin: 06/30/16 10:10 Dose: 1,000 mcg Digoxin (Lanoxin -) 0.125 mg PO Q2D [facility] Last Admin: 06/30/16 10:08 Dose: 0.125 mg Enoxaparin Sodium (Lovenox -) 60 mg SQ BID [facility] Last Admin: 06/30/16 10:09 Dose: 60 mg Ferrous Sulfate (Feosol -) 325 mg PO DAILY@0800 [facility] Last Admin: 06/30/16 10:07 Dose: 325 mg Folic Acid (Folic Acid -) 1 mg PO DAILY [facility] Last Admin: 06/30/16 10:08 Dose: 1 mg Guaifenesin/Codeine Phosphate (Robitussin Ac -) 5 ml PO TID PRN PRN Reason: COUGH Ceftriaxone Sodium (Rocephin 2gm Ivpb (Pre-Docked)) 100 mls @ 200 mls/hr IVPB DAILY [facility] Last Admin: 06/30/16 11:32 Dose: 200 mls/hr Metronidazole (Flagyl 500mg Premixed Ivpb -) 100 mls @ 100 mls/hr IVPB Q8H-IV [facility] Last Admin: 06/30/16 10:08 Dose: 100 mls/hr Lactobacillus Acidophilus (Bacid -) 1 tab PO DAILY [facility] Last Admin: 06/30/16 10:07 Dose: 1 tab Megestrol Acetate (Megace Oral Suspension -) 400 mg PO DAILY [facility] Last Admin: 06/30/16 10:09 Dose: 400 mg Metoprolol Tartrate (Lopressor -) 25 mg PO BID [facility] Last Admin: 06/30/16 10:09 Dose: 25 mg Metoprolol Tartrate (Lopressor Injection -) 5 mg IVPUSH Q4H PRN PRN Reason: HYPERTENSION Mirtazapine (Remeron -) 7.5 mg PO HS [facility] Last Admin: 06/29/16 22:39 Dose: 7.5 mg Multivitamins/Minerals/Vitamin C (Tab-A-Vit -) 1 tab PO DAILY [facility] Last Admin: 06/30/16 11:33 Dose: 1 tab Ondansetron HCl (Zofran Injection) 4 mg IVPB Q6H PRN PRN Reason: NAUSEA Potassium Phos/Sodium Phos (Phos-Nak Packet -) 1 packet PO DAILY [facility] Last Admin: 06/30/16 10:10 Dose: 1 packet - Objective Vital Signs: Vital Signs Temperature 99.2 F 06/30/16 09:51 Pulse Rate 100 H 06/30/16 10:08 Respiratory Rate 20 06/30/16 09:51 Blood Pressure 112/62 06/30/16 09:51 O2 Sat by Pulse Oximetry (%) 93 L 06/30/16 09:00 Constitutional: Yes: Anxious Eyes: Yes: Conjunctiva Clear HENT: Yes: Atraumatic Neck: Yes: Supple Cardiovascular: Yes: S1, S2 Respiratory: Yes: CTA Bilaterally Gastrointestinal: Yes: Soft Musculoskeletal: Yes: Muscle Weakness Edema: No Wound/Incision: Yes: Dressing Dry and Intact Neurological: Yes: Confusion Labs: CBC, BMP 06/30/16 08:20 06/30/16 08:20 INR, PTT INR 1.73 (0.82-1.09) H 06/27/16 10:15 Problem List - Problems (1) Afib Code(s): I48.91 - UNSPECIFIED ATRIAL FIBRILLATION (2) Anemia Code(s): D64.9 - ANEMIA, UNSPECIFIED Qualifiers: Qualified Code(s): D63.8 - Anemia in other chronic diseases classified elsewhere (3) Anxiety and depression Code(s): F41.9 - ANXIETY DISORDER, UNSPECIFIED F32.9 - MAJOR DEPRESSIVE DISORDER, SINGLE EPISODE, UNSPECIFIED (4) Dementia Code(s): F03.90 - UNSPECIFIED DEMENTIA WITHOUT BEHAVIORAL DISTURBANCE Assessment/Plan Current Medications Generic Name Dose Route Start Last Admin Trade Name Freq PRN Reason Stop Dose Admin Acetaminophen 650 mg 06/23/16 12:18 06/25/16 16:42 Tylenol - PO 650 mg Q6H PRN Administration FEVER OR PAIN Albuterol/Ipratropium 1 amp 06/30/16 11:33 Duoneb - NEB Q6H PRN SHORTNESS OF BREATH Amino Acids 30 ml 06/23/16 17:30 06/30/16 10:07 Prosource No Carb Liquid Pkt PO 30 ml BID@0800,1730 DANA Administration Ascorbic Acid 500 mg 06/24/16 10:00 06/30/16 10:10 Vitamin C - PO 500 mg DAILY DANA Administration Clonazepam 0.5 mg 06/23/16 14:00 06/30/16 14:05 Klonopin - PO 0.5 mg TID DANA Administration Clonidine HCl 0.1 mg 06/30/16 10:00 06/30/16 10:07 Catapres Tts Patch - TD 0.1 mg Q7D@1000 DANA Administration Cyanocobalamin 1,000 mcg 06/24/16 10:00 06/30/16 10:10 Vitamin B12 Injection - IM 1,000 mcg DAILY DANA Administration Digoxin 0.125 mg 06/24/16 10:00 06/30/16 10:08 Lanoxin - PO 0.125 mg Q2D DANA Administration Enoxaparin Sodium 60 mg 06/23/16 22:00 06/30/16 10:09 Lovenox - SQ 60 mg BID DANA Administration Ferrous Sulfate 325 mg 06/24/16 08:00 06/30/16 10:07 Feosol - PO 325 mg DAILY@0800 DANA Administration Folic Acid 1 mg 06/24/16 10:00 06/30/16 10:08 Folic Acid - PO 1 mg DAILY DANA Administration Guaifenesin/Codeine Phosphate 5 ml 06/30/16 09:59 Robitussin Ac - PO TID PRN COUGH Ceftriaxone Sodium 100 mls @ 200 mls/hr 06/24/16 10:00 06/30/16 11:32 Rocephin 2gm Ivpb (Pre-Docked) IVPB 200 mls/hr DAILY DANA Administration Metronidazole 100 mls @ 100 mls/hr 06/23/16 18:00 06/30/16 10:08 Flagyl 500mg Premixed Ivpb - IVPB 100 mls/hr Q8H-IV DANA Administration Lactobacillus Acidophilus 1 tab 06/24/16 10:00 06/30/16 10:07 Bacid - PO 1 tab DAILY DANA Administration Megestrol Acetate 400 mg 06/30/16 10:00 06/30/16 10:09 Megace Oral Suspension - PO 400 mg DAILY DANA Administration Metoprolol Tartrate 25 mg 06/23/16 22:00 06/30/16 10:09 Lopressor - PO 25 mg BID DANA Administration Metoprolol Tartrate 5 mg 06/23/16 12:18 Lopressor Injection - IVPUSH Q4H PRN HYPERTENSION Mirtazapine 7.5 mg 06/29/16 22:00 06/29/16 22:39 Remeron - PO 7.5 mg HS DANA Administration Multivitamins/Minerals/Vitamin C 1 tab 06/24/16 10:00 06/30/16 11:33 Tab-A-Vit - PO 1 tab DAILY DANA Administration Ondansetron HCl 4 mg 06/23/16 12:18 Zofran Injection IVPB Q6H PRN NAUSEA Potassium Phos/Sodium Phos 1 packet 06/24/16 10:00 06/30/16 10:10 Phos-Nak Packet - PO 1 packet DAILY DANA Administration Laboratory Tests 06/30/16 08:20 Sodium 147 H Potassium 3.4 L Phosphorus 3.3 Magnesium 1.8 Impression 1. Hyponatremia 2. HTN 3. dementia 4. a-fib 5. intra-abdominal abscess 6. sepsis 7. pleural effusions Plan - replace potassium - encourage free water intake as sodium is elevated - monitor bloodwork - no acute change in management - encourage PO intake - will follow PRN Dr Eid
--- NOTE | 2016-06-30 16:31 | PN ---
Progress Note, Physician History of Present Illness: Afebrile WBC mildly elevated No c/o abdominal pain - Current Medication List Current Medications: Active Medications Acetaminophen (Tylenol -) 650 mg PO Q6H PRN PRN Reason: FEVER OR PAIN Last Admin: 06/25/16 16:42 Dose: 650 mg Albuterol/Ipratropium (Duoneb -) 1 amp NEB Q6H PRN PRN Reason: SHORTNESS OF BREATH Amino Acids (Prosource No Carb Liquid Pkt) 30 ml PO BID@0800,1730 [facility] Last Admin: 06/30/16 10:07 Dose: 30 ml Ascorbic Acid (Vitamin C -) 500 mg PO DAILY [facility] Last Admin: 06/30/16 10:10 Dose: 500 mg Clonazepam (Klonopin -) 0.5 mg PO TID [facility] Last Admin: 06/30/16 14:05 Dose: 0.5 mg Clonidine HCl (Catapres Tts Patch -) 0.1 mg TD Q7D@1000 [facility] Last Admin: 06/30/16 10:07 Dose: 0.1 mg Cyanocobalamin (Vitamin B12 Injection -) 1,000 mcg IM DAILY [facility] Last Admin: 06/30/16 10:10 Dose: 1,000 mcg Digoxin (Lanoxin -) 0.125 mg PO Q2D [facility] Last Admin: 06/30/16 10:08 Dose: 0.125 mg Enoxaparin Sodium (Lovenox -) 60 mg SQ BID [facility] Last Admin: 06/30/16 10:09 Dose: 60 mg Ferrous Sulfate (Feosol -) 325 mg PO DAILY@0800 [facility] Last Admin: 06/30/16 10:07 Dose: 325 mg Folic Acid (Folic Acid -) 1 mg PO DAILY [facility] Last Admin: 06/30/16 10:08 Dose: 1 mg Guaifenesin/Codeine Phosphate (Robitussin Ac -) 5 ml PO TID PRN PRN Reason: COUGH Ceftriaxone Sodium (Rocephin 2gm Ivpb (Pre-Docked)) 100 mls @ 200 mls/hr IVPB DAILY [facility] Last Admin: 06/30/16 11:32 Dose: 200 mls/hr Metronidazole (Flagyl 500mg Premixed Ivpb -) 100 mls @ 100 mls/hr IVPB Q8H-IV [facility] Last Admin: 06/30/16 10:08 Dose: 100 mls/hr Lactobacillus Acidophilus (Bacid -) 1 tab PO DAILY [facility] Last Admin: 06/30/16 10:07 Dose: 1 tab Megestrol Acetate (Megace Oral Suspension -) 400 mg PO DAILY [facility] Last Admin: 06/30/16 10:09 Dose: 400 mg Metoprolol Tartrate (Lopressor -) 25 mg PO BID [facility] Last Admin: 06/30/16 10:09 Dose: 25 mg Metoprolol Tartrate (Lopressor Injection -) 5 mg IVPUSH Q4H PRN PRN Reason: HYPERTENSION Mirtazapine (Remeron -) 7.5 mg PO HS [facility] Last Admin: 06/29/16 22:39 Dose: 7.5 mg Multivitamins/Minerals/Vitamin C (Tab-A-Vit -) 1 tab PO DAILY [facility] Last Admin: 06/30/16 11:33 Dose: 1 tab Ondansetron HCl (Zofran Injection) 4 mg IVPB Q6H PRN PRN Reason: NAUSEA Potassium Phos/Sodium Phos (Phos-Nak Packet -) 1 packet PO DAILY [facility] Last Admin: 06/30/16 10:10 Dose: 1 packet - Objective Vital Signs: Vital Signs Temperature 99.6 F 06/30/16 15:29 Pulse Rate 112 H 06/30/16 15:29 Respiratory Rate 18 06/30/16 15:29 Blood Pressure 117/57 06/30/16 15:29 O2 Sat by Pulse Oximetry (%) 93 L 06/30/16 09:00 Constitutional: Yes: No Distress Eyes: Yes: Conjunctiva Clear Cardiovascular: Yes: Regular Rate and Rhythm, S1, S2 Respiratory: Yes: CTA Bilaterally Gastrointestinal: Yes: Normal Bowel Sounds, Soft. No: Tenderness Edema: Yes Labs: CBC, BMP 06/30/16 08:20 06/30/16 08:20 INR, PTT INR 1.73 (0.82-1.09) H 06/27/16 10:15 Assessment/Plan Pelvic abscess Leukocytosis PCN allergy Continue empiric ceftriaxone/ flagyl
[2016-06-30] MEDS: MIRTAZAPINE 15 MG TABLET (FP) PO SCH (21:36)
--- NOTE | 2016-06-30 21:46 | PN ---
Progress Note, Physician Chief Complaint: 80 yo POD#15 s/p exploratory laparotomy, drainage of abd/pelvic abscess, enterotomy. JES drain in situ with minimal purulent drainage appears more alert and responsive today - Current Medication List Current Medications: Active Medications Acetaminophen (Tylenol -) 650 mg PO Q6H PRN PRN Reason: FEVER OR PAIN Last Admin: 06/25/16 16:42 Dose: 650 mg Albuterol/Ipratropium (Duoneb -) 1 amp NEB Q6H PRN PRN Reason: SHORTNESS OF BREATH Amino Acids (Prosource No Carb Liquid Pkt) 30 ml PO BID@0800,1730 [facility] Last Admin: 06/30/16 17:23 Dose: 30 ml Ascorbic Acid (Vitamin C -) 500 mg PO DAILY [facility] Last Admin: 06/30/16 10:10 Dose: 500 mg Clonazepam (Klonopin -) 0.5 mg PO TID [facility] Last Admin: 06/30/16 21:37 Dose: 0.5 mg Clonidine HCl (Catapres Tts Patch -) 0.1 mg TD Q7D@1000 [facility] Last Admin: 06/30/16 10:07 Dose: 0.1 mg Cyanocobalamin (Vitamin B12 Injection -) 1,000 mcg IM DAILY [facility] Last Admin: 06/30/16 10:10 Dose: 1,000 mcg Digoxin (Lanoxin -) 0.125 mg PO Q2D [facility] Last Admin: 06/30/16 10:08 Dose: 0.125 mg Enoxaparin Sodium (Lovenox -) 60 mg SQ BID [facility] Last Admin: 06/30/16 21:37 Dose: 60 mg Ferrous Sulfate (Feosol -) 325 mg PO DAILY@0800 [facility] Last Admin: 06/30/16 10:07 Dose: 325 mg Folic Acid (Folic Acid -) 1 mg PO DAILY [facility] Last Admin: 06/30/16 10:08 Dose: 1 mg Guaifenesin/Codeine Phosphate (Robitussin Ac -) 5 ml PO TID PRN PRN Reason: COUGH Ceftriaxone Sodium (Rocephin 2gm Ivpb (Pre-Docked)) 100 mls @ 200 mls/hr IVPB DAILY [facility] Last Admin: 06/30/16 11:32 Dose: 200 mls/hr Metronidazole (Flagyl 500mg Premixed Ivpb -) 100 mls @ 100 mls/hr IVPB Q8H-IV [facility] Last Admin: 06/30/16 17:23 Dose: 100 mls/hr Lactobacillus Acidophilus (Bacid -) 1 tab PO DAILY [facility] Last Admin: 06/30/16 10:07 Dose: 1 tab Megestrol Acetate (Megace Oral Suspension -) 400 mg PO DAILY [facility] Last Admin: 06/30/16 10:09 Dose: 400 mg Metoprolol Tartrate (Lopressor -) 25 mg PO BID [facility] Last Admin: 06/30/16 21:37 Dose: 25 mg Metoprolol Tartrate (Lopressor Injection -) 5 mg IVPUSH Q4H PRN PRN Reason: HYPERTENSION Mirtazapine (Remeron -) 7.5 mg PO HS [facility] Last Admin: 06/30/16 21:36 Dose: 7.5 mg Multivitamins/Minerals/Vitamin C (Tab-A-Vit -) 1 tab PO DAILY [facility] Last Admin: 06/30/16 11:33 Dose: 1 tab Ondansetron HCl (Zofran Injection) 4 mg IVPB Q6H PRN PRN Reason: NAUSEA Potassium Phos/Sodium Phos (Phos-Nak Packet -) 1 packet PO DAILY [facility] Last Admin: 06/30/16 10:10 Dose: 1 packet - Objective Vital Signs: Vital Signs Temperature 99.4 F 06/30/16 16:20 Pulse Rate 102 H 06/30/16 16:20 Respiratory Rate 18 06/30/16 16:20 Blood Pressure 110/49 06/30/16 16:20 O2 Sat by Pulse Oximetry (%) 93 L 06/30/16 09:00 Labs: CBC, BMP 06/30/16 08:20 06/30/16 08:20 INR, PTT INR 1.73 (0.82-1.09) H 06/27/16 10:15 Problem List - Problems (1) Sepsis Code(s): A41.9 - SEPSIS, UNSPECIFIED ORGANISM Qualifiers: Qualified Code(s): A41.51 - Sepsis due to Escherichia coli [E. coli] (2) Anemia Code(s): D64.9 - ANEMIA, UNSPECIFIED Qualifiers: Qualified Code(s): D63.8 - Anemia in other chronic diseases classified elsewhere (3) Intra-abdominal abscess Code(s): K65.1 - PERITONEAL ABSCESS (4) Septic shock Code(s): A41.9 - SEPSIS, UNSPECIFIED ORGANISM R65.21 - SEVERE SEPSIS WITH SEPTIC SHOCK
[2016-07-01] MEDS: METRONIDAZOLE 500 MG PREMIXED 100 ML IVPB SCH ×3 (01:17→17:28)
[2016-07-01] MEDS: clonazePAM 0.5 MG TABLET PO SCH ×3 (05:42→21:42)
[2016-07-01 07:52] LABS: MCH 28.1 pg (25.7-33.7); MCHC 32.4 g/dl (32.0-36.0); MEAN CELL VOLUME 86.6 fl (80-96); MEAN PLT VOLUME 7.5 fl (7.5-11.1); PLATELET COUNT 359 K/MM3 (134-434); RDW 15.5 % (11.6-15.6); WHITE BLOOD COUNT 10.3 K/mm3 (4.0-10.0)
[2016-07-01 08:18] LABS: CALCIUM 7.9 mg/dL (8.5-10.1); CREATININE 0.8 mg/dL (0.55-1.02); MAGNESIUM 1.9 mg/dL (1.8-2.4); PHOSPHOROUS 2.6 mg/dL (2.5-4.9)
[2016-07-01] MEDS: AMINO ACIDS/PROTEIN HYDROLYS 30 ML LIQUID.PKT PO SCH ×2 (09:00→16:33)
[2016-07-01] MEDS: FERROUS SO4 325 MG TABLET (FP) PO SCH (09:00)
[2016-07-01] MEDS: CEFTRIAXONE 2G/100 ML IVPB SCH (10:30)
[2016-07-01] MEDS: MEGESTROL ACETATE 400 MG/10 ML UNIT DOSE CUP PO SCH (10:46)
[2016-07-01] MEDS: NAPH,MB-DB/K PH,MBDB POWDER PACKET PO SCH (10:46)
[2016-07-01] MEDS: MULTIVITAMINS (DAILY MVI) TABLET (FP) PO SCH (10:46)
[2016-07-01] MEDS: FOLIC ACID 1 MG TABLET (FP) PO SCH (10:46)
[2016-07-01] MEDS: LACTOBACILLUS ACIDOPHILUS 1 EACH TAB (FP) PO SCH (10:46)
[2016-07-01] MEDS: METOPROLOL TARTRATE 25 MG TABLET (FP) PO SCH ×2 (10:46→21:42)
[2016-07-01] MEDS: ASCORBIC ACID 500 MG TABLET (FP) PO SCH (10:47)
[2016-07-01] MEDS: CYANOCOBALAMIN (VITAMIN B-12) 1000 MCG/1 ML VIAL IM SCH (10:47)
--- NOTE | 2016-07-01 11:57 | PN ---
Progress Note, Physician History of Present Illness: Awake but lethargic No complaints Afebrile - Current Medication List Current Medications: Active Medications Acetaminophen (Tylenol -) 650 mg PO Q6H PRN PRN Reason: FEVER OR PAIN Last Admin: 06/25/16 16:42 Dose: 650 mg Albuterol/Ipratropium (Duoneb -) 1 amp NEB Q6H PRN PRN Reason: SHORTNESS OF BREATH Amino Acids (Prosource No Carb Liquid Pkt) 30 ml PO BID@0800,1730 [facility] Last Admin: 07/01/16 09:00 Dose: 30 ml Ascorbic Acid (Vitamin C -) 500 mg PO DAILY [facility] Last Admin: 07/01/16 10:47 Dose: 500 mg Clonazepam (Klonopin -) 0.5 mg PO TID [facility] Last Admin: 07/01/16 05:42 Dose: 0.5 mg Clonidine HCl (Catapres Tts Patch -) 0.1 mg TD Q7D@1000 [facility] Last Admin: 06/30/16 10:07 Dose: 0.1 mg Cyanocobalamin (Vitamin B12 Injection -) 1,000 mcg IM DAILY [facility] Last Admin: 07/01/16 10:47 Dose: 1,000 mcg Digoxin (Lanoxin -) 0.125 mg PO Q2D [facility] Last Admin: 06/30/16 10:08 Dose: 0.125 mg Ferrous Sulfate (Feosol -) 325 mg PO DAILY@0800 [facility] Last Admin: 07/01/16 09:00 Dose: 325 mg Folic Acid (Folic Acid -) 1 mg PO DAILY [facility] Last Admin: 07/01/16 10:46 Dose: 1 mg Guaifenesin/Codeine Phosphate (Robitussin Ac -) 5 ml PO TID PRN PRN Reason: COUGH Ceftriaxone Sodium (Rocephin 2gm Ivpb (Pre-Docked)) 100 mls @ 200 mls/hr IVPB DAILY [facility] Last Admin: 07/01/16 10:30 Dose: 200 mls/hr Metronidazole (Flagyl 500mg Premixed Ivpb -) 100 mls @ 100 mls/hr IVPB Q8H-IV [facility] Last Admin: 07/01/16 10:56 Dose: 100 mls/hr Lactobacillus Acidophilus (Bacid -) 1 tab PO DAILY [facility] Last Admin: 07/01/16 10:46 Dose: 1 tab Megestrol Acetate (Megace Oral Suspension -) 400 mg PO DAILY [facility] Last Admin: 07/01/16 10:46 Dose: 400 mg Metoprolol Tartrate (Lopressor -) 25 mg PO BID [facility] Last Admin: 07/01/16 10:46 Dose: 25 mg Metoprolol Tartrate (Lopressor Injection -) 5 mg IVPUSH Q4H PRN PRN Reason: HYPERTENSION Mirtazapine (Remeron -) 7.5 mg PO HS [facility] Last Admin: 06/30/16 21:36 Dose: 7.5 mg Multivitamins/Minerals/Vitamin C (Tab-A-Vit -) 1 tab PO DAILY [facility] Last Admin: 07/01/16 10:46 Dose: 1 tab Ondansetron HCl (Zofran Injection) 4 mg IVPB Q6H PRN PRN Reason: NAUSEA Potassium Phos/Sodium Phos (Phos-Nak Packet -) 1 packet PO DAILY [facility] Last Admin: 07/01/16 10:46 Dose: 1 packet - Objective Vital Signs: Vital Signs Temperature 99 F 07/01/16 09:44 Pulse Rate 90 07/01/16 09:44 Respiratory Rate 28 H 07/01/16 09:44 Blood Pressure 98/48 07/01/16 09:44 O2 Sat by Pulse Oximetry (%) 93 L 06/30/16 21:00 Constitutional: Yes: No Distress Eyes: Yes: Conjunctiva Clear Cardiovascular: Yes: Regular Rate and Rhythm, S1, S2 Respiratory: Yes: CTA Bilaterally Gastrointestinal: Yes: Normal Bowel Sounds, Soft, Other (JES drain in place + milky drainage). No: Tenderness Edema: Yes Labs: CBC, BMP 07/01/16 06:30 07/01/16 06:30 INR, PTT INR 1.73 (0.82-1.09) H 06/27/16 10:15 Assessment/Plan Pelvic abscess Leukocytosis PCN allergy Continue empiric ceftriaxone/ flagyl
--- NOTE | 2016-07-01 15:25 | PN ---
Progress Note, Physician History of Present Illness: Pt seen and examined at bedside. She is awake however is anxious. Pt went for a barrium swallow today. - Current Medication List Current Medications: Active Medications Acetaminophen (Tylenol -) 650 mg PO Q6H PRN PRN Reason: FEVER OR PAIN Last Admin: 06/25/16 16:42 Dose: 650 mg Albuterol/Ipratropium (Duoneb -) 1 amp NEB Q6H PRN PRN Reason: SHORTNESS OF BREATH Amino Acids (Prosource No Carb Liquid Pkt) 30 ml PO BID@0800,1730 [facility] Last Admin: 07/01/16 09:00 Dose: 30 ml Ascorbic Acid (Vitamin C -) 500 mg PO DAILY [facility] Last Admin: 07/01/16 10:47 Dose: 500 mg Clonazepam (Klonopin -) 0.5 mg PO TID [facility] Last Admin: 07/01/16 14:46 Dose: 0.5 mg Clonidine HCl (Catapres Tts Patch -) 0.1 mg TD Q7D@1000 [facility] Last Admin: 06/30/16 10:07 Dose: 0.1 mg Cyanocobalamin (Vitamin B12 Injection -) 1,000 mcg IM DAILY [facility] Last Admin: 07/01/16 10:47 Dose: 1,000 mcg Digoxin (Lanoxin -) 0.125 mg PO Q2D [facility] Last Admin: 06/30/16 10:08 Dose: 0.125 mg Ferrous Sulfate (Feosol -) 325 mg PO DAILY@0800 [facility] Last Admin: 07/01/16 09:00 Dose: 325 mg Folic Acid (Folic Acid -) 1 mg PO DAILY [facility] Last Admin: 07/01/16 10:46 Dose: 1 mg Guaifenesin/Codeine Phosphate (Robitussin Ac -) 5 ml PO TID PRN PRN Reason: COUGH Ceftriaxone Sodium (Rocephin 2gm Ivpb (Pre-Docked)) 100 mls @ 200 mls/hr IVPB DAILY [facility] Last Admin: 07/01/16 10:30 Dose: 200 mls/hr Metronidazole (Flagyl 500mg Premixed Ivpb -) 100 mls @ 100 mls/hr IVPB Q8H-IV [facility] Last Admin: 07/01/16 10:56 Dose: 100 mls/hr Lactobacillus Acidophilus (Bacid -) 1 tab PO DAILY [facility] Last Admin: 07/01/16 10:46 Dose: 1 tab Megestrol Acetate (Megace Oral Suspension -) 400 mg PO DAILY [facility] Last Admin: 07/01/16 10:46 Dose: 400 mg Metoprolol Tartrate (Lopressor -) 25 mg PO BID [facility] Last Admin: 07/01/16 10:46 Dose: 25 mg Metoprolol Tartrate (Lopressor Injection -) 5 mg IVPUSH Q4H PRN PRN Reason: HYPERTENSION Mirtazapine (Remeron -) 7.5 mg PO HS [facility] Last Admin: 06/30/16 21:36 Dose: 7.5 mg Multivitamins/Minerals/Vitamin C (Tab-A-Vit -) 1 tab PO DAILY [facility] Last Admin: 07/01/16 10:46 Dose: 1 tab Ondansetron HCl (Zofran Injection) 4 mg IVPB Q6H PRN PRN Reason: NAUSEA Potassium Phos/Sodium Phos (Phos-Nak Packet -) 1 packet PO DAILY [facility] Last Admin: 07/01/16 10:46 Dose: 1 packet - Objective Vital Signs: Vital Signs Temperature 99 F 07/01/16 09:44 Pulse Rate 82 07/01/16 13:35 Respiratory Rate 28 H 07/01/16 09:44 Blood Pressure 98/48 07/01/16 09:44 O2 Sat by Pulse Oximetry (%) 94 L 07/01/16 13:35 Constitutional: Yes: Calm Eyes: Yes: Conjunctiva Clear HENT: Yes: Atraumatic Cardiovascular: Yes: S1, S2 Respiratory: Yes: CTA Bilaterally Gastrointestinal: Yes: Other (eagle drain) Genitourinary: Yes: Incontinence Musculoskeletal: Yes: Muscle Weakness Edema: No Wound/Incision: Yes: Dressing Dry and Intact Neurological: Yes: Confusion Labs: CBC, BMP 07/01/16 06:30 07/01/16 06:30 INR, PTT INR 1.73 (0.82-1.09) H 06/27/16 10:15 Problem List - Problems (1) Afib Code(s): I48.91 - UNSPECIFIED ATRIAL FIBRILLATION (2) Anemia Code(s): D64.9 - ANEMIA, UNSPECIFIED Qualifiers: Qualified Code(s): D63.8 - Anemia in other chronic diseases classified elsewhere (3) Anxiety and depression Code(s): F41.9 - ANXIETY DISORDER, UNSPECIFIED F32.9 - MAJOR DEPRESSIVE DISORDER, SINGLE EPISODE, UNSPECIFIED (4) Dementia Code(s): F03.90 - UNSPECIFIED DEMENTIA WITHOUT BEHAVIORAL DISTURBANCE Assessment/Plan Current Medications Generic Name Dose Route Start Last Admin Trade Name Freq PRN Reason Stop Dose Admin Acetaminophen 650 mg 06/23/16 12:18 06/25/16 16:42 Tylenol - PO 650 mg Q6H PRN Administration FEVER OR PAIN Albuterol/Ipratropium 1 amp 06/30/16 11:33 Duoneb - NEB Q6H PRN SHORTNESS OF BREATH Amino Acids 30 ml 06/23/16 17:30 07/01/16 09:00 Prosource No Carb Liquid Pkt PO 30 ml BID@0800,1730 DANA Administration Ascorbic Acid 500 mg 06/24/16 10:00 07/01/16 10:47 Vitamin C - PO 500 mg DAILY DANA Administration Clonazepam 0.5 mg 06/23/16 14:00 07/01/16 14:46 Klonopin - PO 0.5 mg TID DANA Administration Clonidine HCl 0.1 mg 06/30/16 10:00 06/30/16 10:07 Catapres Tts Patch - TD 0.1 mg Q7D@1000 DANA Administration Cyanocobalamin 1,000 mcg 06/24/16 10:00 07/01/16 10:47 Vitamin B12 Injection - IM 1,000 mcg DAILY DANA Administration Digoxin 0.125 mg 06/24/16 10:00 06/30/16 10:08 Lanoxin - PO 0.125 mg Q2D DANA Administration Ferrous Sulfate 325 mg 06/24/16 08:00 07/01/16 09:00 Feosol - PO 325 mg DAILY@0800 DANA Administration Folic Acid 1 mg 06/24/16 10:00 07/01/16 10:46 Folic Acid - PO 1 mg DAILY DANA Administration Guaifenesin/Codeine Phosphate 5 ml 06/30/16 09:59 Robitussin Ac - PO TID PRN COUGH Ceftriaxone Sodium 100 mls @ 200 mls/hr 06/24/16 10:00 07/01/16 10:30 Rocephin 2gm Ivpb (Pre-Docked) IVPB 200 mls/hr DAILY DANA Administration Metronidazole 100 mls @ 100 mls/hr 06/23/16 18:00 07/01/16 10:56 Flagyl 500mg Premixed Ivpb - IVPB 100 mls/hr Q8H-IV DANA Administration Lactobacillus Acidophilus 1 tab 06/24/16 10:00 07/01/16 10:46 Bacid - PO 1 tab DAILY DANA Administration Megestrol Acetate 400 mg 06/30/16 10:00 07/01/16 10:46 Megace Oral Suspension - PO 400 mg DAILY DANA Administration Metoprolol Tartrate 25 mg 06/23/16 22:00 07/01/16 10:46 Lopressor - PO 25 mg BID DANA Administration Metoprolol Tartrate 5 mg 06/23/16 12:18 Lopressor Injection - IVPUSH Q4H PRN HYPERTENSION Mirtazapine 7.5 mg 06/29/16 22:00 06/30/16 21:36 Remeron - PO 7.5 mg HS DANA Administration Multivitamins/Minerals/Vitamin C 1 tab 06/24/16 10:00 07/01/16 10:46 Tab-A-Vit - PO 1 tab DAILY DANA Administration Ondansetron HCl 4 mg 06/23/16 12:18 Zofran Injection IVPB Q6H PRN NAUSEA Potassium Phos/Sodium Phos 1 packet 06/24/16 10:00 07/01/16 10:46 Phos-Nak Packet - PO 1 packet DAILY DANA Administration Laboratory Tests 07/01/16 06:30 Phosphorus 2.6 D Magnesium 1.9 Impression 1. Hypernatremia 2. HTN 3. dementia 4. a-fib 5. intra-abdominal abscess 6. sepsis 7. pleural effusions Plan - will start d5 w as pt is hypernatremic and has poor po intake - monitor bmp - will follow pt - follow up barrium swallow - cont current meds Dr Eid
--- NOTE | 2016-07-01 15:33 | PN ---
Progress Note, Physician Chief Complaint: AWAKE , RELAXED NAD, SWALLOW EVAL REVIEWED POOR APPETITE STARTING CALORIE COUNT TODAY - Current Medication List Current Medications: Active Medications Acetaminophen (Tylenol -) 650 mg PO Q6H PRN PRN Reason: FEVER OR PAIN Last Admin: 06/25/16 16:42 Dose: 650 mg Albuterol/Ipratropium (Duoneb -) 1 amp NEB Q6H PRN PRN Reason: SHORTNESS OF BREATH Amino Acids (Prosource No Carb Liquid Pkt) 30 ml PO BID@0800,1730 [facility] Last Admin: 07/01/16 09:00 Dose: 30 ml Ascorbic Acid (Vitamin C -) 500 mg PO DAILY [facility] Last Admin: 07/01/16 10:47 Dose: 500 mg Clonazepam (Klonopin -) 0.5 mg PO TID [facility] Last Admin: 07/01/16 14:46 Dose: 0.5 mg Clonidine HCl (Catapres Tts Patch -) 0.1 mg TD Q7D@1000 [facility] Last Admin: 06/30/16 10:07 Dose: 0.1 mg Cyanocobalamin (Vitamin B12 Injection -) 1,000 mcg IM DAILY [facility] Last Admin: 07/01/16 10:47 Dose: 1,000 mcg Digoxin (Lanoxin -) 0.125 mg PO Q2D [facility] Last Admin: 06/30/16 10:08 Dose: 0.125 mg Ferrous Sulfate (Feosol -) 325 mg PO DAILY@0800 [facility] Last Admin: 07/01/16 09:00 Dose: 325 mg Folic Acid (Folic Acid -) 1 mg PO DAILY [facility] Last Admin: 07/01/16 10:46 Dose: 1 mg Guaifenesin/Codeine Phosphate (Robitussin Ac -) 5 ml PO TID PRN PRN Reason: COUGH Ceftriaxone Sodium (Rocephin 2gm Ivpb (Pre-Docked)) 100 mls @ 200 mls/hr IVPB DAILY [facility] Last Admin: 07/01/16 10:30 Dose: 200 mls/hr Metronidazole (Flagyl 500mg Premixed Ivpb -) 100 mls @ 100 mls/hr IVPB Q8H-IV [facility] Last Admin: 07/01/16 10:56 Dose: 100 mls/hr Potassium Chloride 10 meq/ (Dextrose) 1,005 mls @ 42 mls/hr IVPB .[id number] [facility] Lactobacillus Acidophilus (Bacid -) 1 tab PO DAILY [facility] Last Admin: 07/01/16 10:46 Dose: 1 tab Megestrol Acetate (Megace Oral Suspension -) 400 mg PO DAILY [facility] Last Admin: 07/01/16 10:46 Dose: 400 mg Metoprolol Tartrate (Lopressor -) 25 mg PO BID [facility] Last Admin: 07/01/16 10:46 Dose: 25 mg Metoprolol Tartrate (Lopressor Injection -) 5 mg IVPUSH Q4H PRN PRN Reason: HYPERTENSION Mirtazapine (Remeron -) 7.5 mg PO HS [facility] Last Admin: 06/30/16 21:36 Dose: 7.5 mg Multivitamins/Minerals/Vitamin C (Tab-A-Vit -) 1 tab PO DAILY [facility] Last Admin: 07/01/16 10:46 Dose: 1 tab Ondansetron HCl (Zofran Injection) 4 mg IVPB Q6H PRN PRN Reason: NAUSEA Potassium Phos/Sodium Phos (Phos-Nak Packet -) 1 packet PO DAILY [facility] Last Admin: 07/01/16 10:46 Dose: 1 packet - Objective Vital Signs: Vital Signs Temperature 98.2 F 07/01/16 15:26 Pulse Rate 94 H 07/01/16 15:26 Respiratory Rate 18 07/01/16 15:26 Blood Pressure 128/77 07/01/16 15:26 O2 Sat by Pulse Oximetry (%) 94 L 07/01/16 13:35 Constitutional: Yes: No Distress Eyes: Yes: WNL HENT: Yes: WNL Neck: Yes: WNL Cardiovascular: Yes: Pulse Irregular Respiratory: Yes: WNL Gastrointestinal: Yes: Distention, Tenderness Genitourinary: Yes: Incontinence Musculoskeletal: Yes: Muscle Weakness Edema: Yes Edema: LLE: Trace, RLE: Trace Peripheral Pulses WNL: Yes Integumentary: Yes: WNL Wound/Incision: Yes: Dressing Dry and Intact, Draining Neurological: Yes: Other ...Motor Strength: LLE, RLE Psychiatric: Yes: Other Labs: CBC, BMP 07/01/16 06:30 07/01/16 06:30 INR, PTT INR 1.73 (0.82-1.09) H 06/27/16 10:15 Problem List - Problems (1) Anxiety Code(s): F41.9 - ANXIETY DISORDER, UNSPECIFIED (2) HTN (hypertension) Code(s): I10 - ESSENTIAL (PRIMARY) HYPERTENSION Qualifiers: Qualified Code(s): I10 - Essential (primary) hypertension (3) Hyperlipidemia Code(s): E78.5 - HYPERLIPIDEMIA, UNSPECIFIED Qualifiers: Qualified Code(s): E78.0 - Pure hypercholesterolemia (4) Rapid atrial fibrillation Code(s): I48.91 - UNSPECIFIED ATRIAL FIBRILLATION (5) Renal insufficiency Code(s): N28.9 - DISORDER OF KIDNEY AND URETER, UNSPECIFIED (6) Uterine abscess Code(s): N71.9 - INFLAMMATORY DISEASE OF UTERUS, UNSPECIFIED (7) Anxiety and depression Code(s): F41.9 - ANXIETY DISORDER, UNSPECIFIED F32.9 - MAJOR DEPRESSIVE DISORDER, SINGLE EPISODE, UNSPECIFIED Assessment/Plan POOR APPETITE, STARTING CALORIE COUNT NO ASPIRATIONS ON MODIFIED BARIUM SWALLOW EXAM SON MIYA MELGOZA HAS STATED A FEEDING TUBE WILL BE AN OPTION IF NEEDED AND THIS WOULD CONSENT IF NEEDED. IV ABX PER ID WITH WBC AT 10 TODAY NO FEVERS UTERINE TUBE DRAINING MINIMAL DISCHARGE OOB TO CHAIR AFIB AC ON HOLD INCENTIVE SPIROMETRY
[2016-07-01] MEDS ORDERED: POTASSIUM CHLORIDE 10 MEQ in DEXTROSE 5%-WATER - 1,000 ML IVPB SCH (16:00)
--- NOTE | 2016-07-01 20:40 | PN ---
Progress Note, Physician - Current Medication List Current Medications: Active Medications Acetaminophen (Tylenol -) 650 mg PO Q6H PRN PRN Reason: FEVER OR PAIN Last Admin: 06/25/16 16:42 Dose: 650 mg Albuterol/Ipratropium (Duoneb -) 1 amp NEB Q6H PRN PRN Reason: SHORTNESS OF BREATH Amino Acids (Prosource No Carb Liquid Pkt) 30 ml PO BID@0800,1730 [facility] Last Admin: 07/01/16 16:33 Dose: 30 ml Ascorbic Acid (Vitamin C -) 500 mg PO DAILY [facility] Last Admin: 07/01/16 10:47 Dose: 500 mg Clonazepam (Klonopin -) 0.5 mg PO TID [facility] Last Admin: 07/01/16 14:46 Dose: 0.5 mg Clonidine HCl (Catapres Tts Patch -) 0.1 mg TD Q7D@1000 [facility] Last Admin: 06/30/16 10:07 Dose: 0.1 mg Cyanocobalamin (Vitamin B12 Injection -) 1,000 mcg IM DAILY [facility] Last Admin: 07/01/16 10:47 Dose: 1,000 mcg Digoxin (Lanoxin -) 0.125 mg PO Q2D [facility] Last Admin: 06/30/16 10:08 Dose: 0.125 mg Ferrous Sulfate (Feosol -) 325 mg PO DAILY@0800 [facility] Last Admin: 07/01/16 09:00 Dose: 325 mg Folic Acid (Folic Acid -) 1 mg PO DAILY [facility] Last Admin: 07/01/16 10:46 Dose: 1 mg Guaifenesin/Codeine Phosphate (Robitussin Ac -) 5 ml PO TID PRN PRN Reason: COUGH Ceftriaxone Sodium (Rocephin 2gm Ivpb (Pre-Docked)) 100 mls @ 200 mls/hr IVPB DAILY [facility] Last Admin: 07/01/16 10:30 Dose: 200 mls/hr Metronidazole (Flagyl 500mg Premixed Ivpb -) 100 mls @ 100 mls/hr IVPB Q8H-IV [facility] Last Admin: 07/01/16 17:28 Dose: 100 mls/hr Potassium Chloride 10 meq/ (Dextrose) 1,005 mls @ 42 mls/hr IVPB Q24H [facility] Last Admin: 07/01/16 18:01 Dose: 42 mls/hr Lactobacillus Acidophilus (Bacid -) 1 tab PO DAILY [facility] Last Admin: 07/01/16 10:46 Dose: 1 tab Megestrol Acetate (Megace Oral Suspension -) 400 mg PO DAILY [facility] Last Admin: 07/01/16 10:46 Dose: 400 mg Metoprolol Tartrate (Lopressor -) 25 mg PO BID [facility] Last Admin: 07/01/16 10:46 Dose: 25 mg Metoprolol Tartrate (Lopressor Injection -) 5 mg IVPUSH Q4H PRN PRN Reason: HYPERTENSION Mirtazapine (Remeron -) 7.5 mg PO HS [facility] Last Admin: 06/30/16 21:36 Dose: 7.5 mg Multivitamins/Minerals/Vitamin C (Tab-A-Vit -) 1 tab PO DAILY [facility] Last Admin: 07/01/16 10:46 Dose: 1 tab Nystatin/Triamcinolone Acetonide (Mycolog Ii Cream -) 1 applic TP BID [facility] Ondansetron HCl (Zofran Injection) 4 mg IVPB Q6H PRN PRN Reason: NAUSEA Potassium Phos/Sodium Phos (Phos-Nak Packet -) 1 packet PO DAILY [facility] Last Admin: 07/01/16 10:46 Dose: 1 packet - Objective Vital Signs: Vital Signs Temperature 99.6 F 07/01/16 17:19 Pulse Rate 98 H 07/01/16 17:19 Respiratory Rate 20 07/01/16 17:19 Blood Pressure 120/57 07/01/16 17:19 O2 Sat by Pulse Oximetry (%) 94 L 07/01/16 13:35 Labs: CBC, BMP 07/01/16 06:30 07/01/16 06:30 INR, PTT INR 1.73 (0.82-1.09) H 06/27/16 10:15 Problem List - Problems (1) Sepsis Code(s): A41.9 - SEPSIS, UNSPECIFIED ORGANISM Qualifiers: Qualified Code(s): A41.51 - Sepsis due to Escherichia coli [E. coli] (2) Anemia Code(s): D64.9 - ANEMIA, UNSPECIFIED Qualifiers: Qualified Code(s): D63.8 - Anemia in other chronic diseases classified elsewhere (3) Intra-abdominal abscess Code(s): K65.1 - PERITONEAL ABSCESS (4) Septic shock Code(s): A41.9 - SEPSIS, UNSPECIFIED ORGANISM R65.21 - SEVERE SEPSIS WITH SEPTIC SHOCK
[2016-07-01] MEDS: MIRTAZAPINE 15 MG TABLET (FP) PO SCH (21:42)
[2016-07-01] MEDS: NYSTATIN/TRIAMCINOLONE TOPICAL CREAM 15 GM TUBE TP SCH (21:43)
[2016-07-02] MEDS: METRONIDAZOLE 500 MG PREMIXED 100 ML IVPB SCH ×3 (01:27→17:22)
[2016-07-02] MEDS: clonazePAM 0.5 MG TABLET PO SCH ×3 (06:01→22:14)
[2016-07-02 08:09] LABS: CREATININE 0.7 mg/dL (0.55-1.02); PHOSPHOROUS 2.5 mg/dL (2.5-4.9)
--- NOTE | 2016-07-02 08:16 | PN ---
Progress Note (short form) - Note Progress Note: PULMONARY Denies shortness of breath or chest pain. No fevers recorded. Last Vital Signs Temp Pulse Resp BP Pulse Ox 99.6 F 98 H 20 120/57 93 L 07/01/16 17:19 07/01/16 17:19 07/01/16 22:00 07/01/16 17:19 07/01/16 21:00 Gen: breathing nonlabored Heart: RRR Lung: decreased breath sounds at the base Abd: soft, nontender, +JES drain with purulent drainage Ext: + trace edema CBC, BMP 07/01/16 06:30 Active Medications Acetaminophen (Tylenol -) 650 mg PO Q6H PRN PRN Reason: FEVER OR PAIN Last Admin: 06/25/16 16:42 Dose: 650 mg Albuterol/Ipratropium (Duoneb -) 1 amp NEB Q6H PRN PRN Reason: SHORTNESS OF BREATH Amino Acids (Prosource No Carb Liquid Pkt) 30 ml PO BID@0800,1730 [facility] Last Admin: 07/01/16 16:33 Dose: 30 ml Ascorbic Acid (Vitamin C -) 500 mg PO DAILY [facility] Last Admin: 07/01/16 10:47 Dose: 500 mg Clonazepam (Klonopin -) 0.5 mg PO TID [facility] Last Admin: 07/02/16 06:01 Dose: 0.5 mg Clonidine HCl (Catapres Tts Patch -) 0.1 mg TD Q7D@1000 [facility] Last Admin: 06/30/16 10:07 Dose: 0.1 mg Cyanocobalamin (Vitamin B12 Injection -) 1,000 mcg IM DAILY [facility] Last Admin: 07/01/16 10:47 Dose: 1,000 mcg Digoxin (Lanoxin -) 0.125 mg PO Q2D [facility] Last Admin: 06/30/16 10:08 Dose: 0.125 mg Ferrous Sulfate (Feosol -) 325 mg PO DAILY@0800 [facility] Last Admin: 07/01/16 09:00 Dose: 325 mg Folic Acid (Folic Acid -) 1 mg PO DAILY [facility] Last Admin: 07/01/16 10:46 Dose: 1 mg Guaifenesin/Codeine Phosphate (Robitussin Ac -) 5 ml PO TID PRN PRN Reason: COUGH Ceftriaxone Sodium (Rocephin 2gm Ivpb (Pre-Docked)) 100 mls @ 200 mls/hr IVPB DAILY [facility] Last Admin: 07/01/16 10:30 Dose: 200 mls/hr Metronidazole (Flagyl 500mg Premixed Ivpb -) 100 mls @ 100 mls/hr IVPB Q8H-IV [facility] Last Admin: 07/02/16 01:27 Dose: 100 mls/hr Potassium Chloride 10 meq/ (Dextrose) 1,005 mls @ 42 mls/hr IVPB Q24H [facility] Last Admin: 07/01/16 18:01 Dose: 42 mls/hr Lactobacillus Acidophilus (Bacid -) 1 tab PO DAILY [facility] Last Admin: 07/01/16 10:46 Dose: 1 tab Megestrol Acetate (Megace Oral Suspension -) 400 mg PO DAILY [facility] Last Admin: 07/01/16 10:46 Dose: 400 mg Metoprolol Tartrate (Lopressor -) 25 mg PO BID [facility] Last Admin: 07/01/16 21:42 Dose: 25 mg Metoprolol Tartrate (Lopressor Injection -) 5 mg IVPUSH Q4H PRN PRN Reason: HYPERTENSION Mirtazapine (Remeron -) 7.5 mg PO HS [facility] Last Admin: 07/01/16 21:42 Dose: 7.5 mg Multivitamins/Minerals/Vitamin C (Tab-A-Vit -) 1 tab PO DAILY [facility] Last Admin: 07/01/16 10:46 Dose: 1 tab Nystatin/Triamcinolone Acetonide (Mycolog Ii Cream -) 1 applic TP BID [facility] Last Admin: 07/01/16 21:43 Dose: 1 applic Ondansetron HCl (Zofran Injection) 4 mg IVPB Q6H PRN PRN Reason: NAUSEA Potassium Phos/Sodium Phos (Phos-Nak Packet -) 1 packet PO DAILY [facility] Last Admin: 07/01/16 10:46 Dose: 1 packet A/P Perforated Uterus Intra-abdominal Abscess s/p ex-lap/Abscess drainage/washout/enterotomy with SB fecalith removal/primary repair Sepsis Atrial Fibrillation HTN Anxiety Dementia Pleural Effusions - lasix as needed - continue antibiotics - monitor drain output - rate controlled - continue anticoagulation - PO per surgery - pain control - DVT prophylaxis
[2016-07-02] MEDS: AMINO ACIDS/PROTEIN HYDROLYS 30 ML LIQUID.PKT PO SCH ×2 (08:31→17:23)
[2016-07-02] MEDS: FERROUS SO4 325 MG TABLET (FP) PO SCH (08:31)
[2016-07-02] MEDS: DIGOXIN 0.125 MG TABLET (FP) PO SCH (09:31)
[2016-07-02] MEDS: MULTIVITAMINS (DAILY MVI) TABLET (FP) PO SCH (09:31)
[2016-07-02] MEDS: MEGESTROL ACETATE 400 MG/10 ML UNIT DOSE CUP PO SCH (09:31)
[2016-07-02] MEDS: CEFTRIAXONE 2G/100 ML IVPB SCH (09:31)
[2016-07-02] MEDS: LACTOBACILLUS ACIDOPHILUS 1 EACH TAB (FP) PO SCH (09:31)
[2016-07-02] MEDS: ASCORBIC ACID 500 MG TABLET (FP) PO SCH (09:31)
[2016-07-02] MEDS: FOLIC ACID 1 MG TABLET (FP) PO SCH (09:31)
[2016-07-02] MEDS: METOPROLOL TARTRATE 25 MG TABLET (FP) PO SCH ×2 (09:31→22:14)
[2016-07-02] MEDS: NYSTATIN/TRIAMCINOLONE TOPICAL CREAM 15 GM TUBE TP SCH ×2 (09:32→22:15)
[2016-07-02] MEDS: CYANOCOBALAMIN (VITAMIN B-12) 1000 MCG/1 ML VIAL IM SCH (09:32)
[2016-07-02] MEDS: NAPH,MB-DB/K PH,MBDB POWDER PACKET PO SCH (09:34)
[2016-07-02] MEDS ORDERED: POTASSIUM CHLORIDE TABS 20 MEQ TABLET.ER (FP) PO ONE ×2 (13:27→15:56)
--- NOTE | 2016-07-02 13:28 | PN ---
Progress Note, Physician History of Present Illness: IN BED - Current Medication List Current Medications: Active Medications Acetaminophen (Tylenol -) 650 mg PO Q6H PRN PRN Reason: FEVER OR PAIN Last Admin: 06/25/16 16:42 Dose: 650 mg Albuterol/Ipratropium (Duoneb -) 1 amp NEB Q6H PRN PRN Reason: SHORTNESS OF BREATH Amino Acids (Prosource No Carb Liquid Pkt) 30 ml PO BID@0800,1730 [facility] Last Admin: 07/02/16 08:31 Dose: 30 ml Ascorbic Acid (Vitamin C -) 500 mg PO DAILY [facility] Last Admin: 07/02/16 09:31 Dose: 500 mg Clonazepam (Klonopin -) 0.5 mg PO TID [facility] Last Admin: 07/02/16 06:01 Dose: 0.5 mg Clonidine HCl (Catapres Tts Patch -) 0.1 mg TD Q7D@1000 [facility] Last Admin: 06/30/16 10:07 Dose: 0.1 mg Cyanocobalamin (Vitamin B12 Injection -) 1,000 mcg IM DAILY [facility] Last Admin: 07/02/16 09:32 Dose: 1,000 mcg Digoxin (Lanoxin -) 0.125 mg PO Q2D [facility] Last Admin: 07/02/16 09:31 Dose: 0.125 mg Ferrous Sulfate (Feosol -) 325 mg PO DAILY@0800 [facility] Last Admin: 07/02/16 08:31 Dose: 325 mg Folic Acid (Folic Acid -) 1 mg PO DAILY [facility] Last Admin: 07/02/16 09:31 Dose: 1 mg Guaifenesin/Codeine Phosphate (Robitussin Ac -) 5 ml PO TID PRN PRN Reason: COUGH Last Admin: 07/02/16 10:44 Dose: 5 ml Ceftriaxone Sodium (Rocephin 2gm Ivpb (Pre-Docked)) 100 mls @ 200 mls/hr IVPB DAILY [facility] Last Admin: 07/02/16 09:31 Dose: 200 mls/hr Metronidazole (Flagyl 500mg Premixed Ivpb -) 100 mls @ 100 mls/hr IVPB Q8H-IV [facility] Last Admin: 07/02/16 10:41 Dose: 100 mls/hr Potassium Chloride 10 meq/ (Dextrose) 1,005 mls @ 42 mls/hr IVPB Q24H [facility] Last Admin: 07/01/16 18:01 Dose: 42 mls/hr Lactobacillus Acidophilus (Bacid -) 1 tab PO DAILY [facility] Last Admin: 07/02/16 09:31 Dose: 1 tab Megestrol Acetate (Megace Oral Suspension -) 400 mg PO DAILY [facility] Last Admin: 07/02/16 09:31 Dose: 400 mg Metoprolol Tartrate (Lopressor -) 25 mg PO BID [facility] Last Admin: 07/02/16 09:31 Dose: 25 mg Metoprolol Tartrate (Lopressor Injection -) 5 mg IVPUSH Q4H PRN PRN Reason: HYPERTENSION Mirtazapine (Remeron -) 7.5 mg PO HS [facility] Last Admin: 07/01/16 21:42 Dose: 7.5 mg Multivitamins/Minerals/Vitamin C (Tab-A-Vit -) 1 tab PO DAILY [facility] Last Admin: 07/02/16 09:31 Dose: 1 tab Nystatin/Triamcinolone Acetonide (Mycolog Ii Cream -) 1 applic TP BID [facility] Last Admin: 07/02/16 09:32 Dose: 1 applic Ondansetron HCl (Zofran Injection) 4 mg IVPB Q6H PRN PRN Reason: NAUSEA Potassium Phos/Sodium Phos (Phos-Nak Packet -) 1 packet PO DAILY [facility] Last Admin: 07/02/16 09:34 Dose: 1 packet - Objective Vital Signs: Vital Signs Temperature 97.9 F 07/02/16 10:00 Pulse Rate 97 H 07/02/16 10:00 Respiratory Rate 20 07/02/16 10:00 Blood Pressure 111/59 07/02/16 10:00 O2 Sat by Pulse Oximetry (%) 95 07/02/16 09:00 Respiratory: Yes: Regular, CTA Bilaterally Gastrointestinal: Yes: Normal Bowel Sounds, Soft Labs: CBC, BMP 07/01/16 06:30 07/02/16 06:00 INR, PTT INR 1.73 (0.82-1.09) H 06/27/16 10:15 Problem List - Problems (1) Sepsis Assessment/Plan: IV ABX MONITOR LABS Code(s): A41.9 - SEPSIS, UNSPECIFIED ORGANISM Qualifiers: Qualified Code(s): A41.51 - Sepsis due to Escherichia coli [E. coli] (2) Uterine abscess Assessment/Plan: IR/MEDICAL TECH FOLLOW ---ABX ID ON CASE Code(s): N71.9 - INFLAMMATORY DISEASE OF UTERUS, UNSPECIFIED (3) Anemia Assessment/Plan: MONITOR LABS Code(s): D64.9 - ANEMIA, UNSPECIFIED Qualifiers: Qualified Code(s): D63.8 - Anemia in other chronic diseases classified elsewhere
[2016-07-02] MEDS ORDERED: guaiFENesin/CODEINE 5 ML UNIT-DOSE CUPS PO PRN (14:26)
--- NOTE | 2016-07-02 15:56 | PN ---
Progress Note, Physician History of Present Illness: Pt seen and examined at bedside. She is more awake and alert than yesterday. Her PO intake remains poor. - Current Medication List Current Medications: Active Medications Acetaminophen (Tylenol -) 650 mg PO Q6H PRN PRN Reason: FEVER OR PAIN Last Admin: 06/25/16 16:42 Dose: 650 mg Albuterol/Ipratropium (Duoneb -) 1 amp NEB Q6H PRN PRN Reason: SHORTNESS OF BREATH Amino Acids (Prosource No Carb Liquid Pkt) 30 ml PO BID@0800,1730 [facility] Last Admin: 07/02/16 08:31 Dose: 30 ml Ascorbic Acid (Vitamin C -) 500 mg PO DAILY [facility] Last Admin: 07/02/16 09:31 Dose: 500 mg Clonazepam (Klonopin -) 0.5 mg PO TID [facility] Last Admin: 07/02/16 14:04 Dose: 0.5 mg Clonidine HCl (Catapres Tts Patch -) 0.1 mg TD Q7D@1000 [facility] Last Admin: 06/30/16 10:07 Dose: 0.1 mg Digoxin (Lanoxin -) 0.125 mg PO Q2D [facility] Last Admin: 07/02/16 09:31 Dose: 0.125 mg Ferrous Sulfate (Feosol -) 325 mg PO DAILY@0800 [facility] Last Admin: 07/02/16 08:31 Dose: 325 mg Folic Acid (Folic Acid -) 1 mg PO DAILY [facility] Last Admin: 07/02/16 09:31 Dose: 1 mg Guaifenesin/Codeine Phosphate (Robitussin Ac -) 5 ml PO TID PRN PRN Reason: COUGH Ceftriaxone Sodium (Rocephin 2gm Ivpb (Pre-Docked)) 100 mls @ 200 mls/hr IVPB DAILY [facility] Last Admin: 07/02/16 09:31 Dose: 200 mls/hr Metronidazole (Flagyl 500mg Premixed Ivpb -) 100 mls @ 100 mls/hr IVPB Q8H-IV [facility] Last Admin: 07/02/16 10:41 Dose: 100 mls/hr Potassium Chloride 10 meq/ (Dextrose) 1,005 mls @ 42 mls/hr IVPB Q24H [facility] Last Admin: 07/01/16 18:01 Dose: 42 mls/hr Lactobacillus Acidophilus (Bacid -) 1 tab PO DAILY [facility] Last Admin: 07/02/16 09:31 Dose: 1 tab Megestrol Acetate (Megace Oral Suspension -) 400 mg PO DAILY [facility] Last Admin: 07/02/16 09:31 Dose: 400 mg Metoprolol Tartrate (Lopressor -) 25 mg PO BID [facility] Last Admin: 07/02/16 09:31 Dose: 25 mg Mirtazapine (Remeron -) 7.5 mg PO HS [facility] Last Admin: 07/01/16 21:42 Dose: 7.5 mg Multivitamins/Minerals/Vitamin C (Tab-A-Vit -) 1 tab PO DAILY [facility] Last Admin: 07/02/16 09:31 Dose: 1 tab Nystatin/Triamcinolone Acetonide (Mycolog Ii Cream -) 1 applic TP BID [facility] Last Admin: 07/02/16 09:32 Dose: 1 applic Ondansetron HCl (Zofran Injection) 4 mg IVPB Q6H PRN PRN Reason: NAUSEA Potassium Phos/Sodium Phos (Phos-Nak Packet -) 1 packet PO DAILY [facility] Last Admin: 07/02/16 09:34 Dose: 1 packet - Objective Vital Signs: Vital Signs Temperature 97.6 F 07/02/16 14:22 Pulse Rate 80 07/02/16 14:22 Respiratory Rate 20 07/02/16 14:22 Blood Pressure 109/66 07/02/16 14:22 O2 Sat by Pulse Oximetry (%) 95 07/02/16 09:00 Constitutional: Yes: Calm Eyes: Yes: Conjunctiva Clear HENT: Yes: Atraumatic Cardiovascular: Yes: S1, S2 Respiratory: Yes: CTA Bilaterally Gastrointestinal: Yes: Soft, Other (eagle drain) Extremities: Yes: WNL Edema: No Neurological: Yes: Confusion Labs: CBC, BMP 07/01/16 06:30 07/02/16 06:00 INR, PTT INR 1.73 (0.82-1.09) H 06/27/16 10:15 Problem List - Problems (1) Afib Code(s): I48.91 - UNSPECIFIED ATRIAL FIBRILLATION (2) Anemia Code(s): D64.9 - ANEMIA, UNSPECIFIED Qualifiers: Qualified Code(s): D63.8 - Anemia in other chronic diseases classified elsewhere (3) Anxiety and depression Code(s): F41.9 - ANXIETY DISORDER, UNSPECIFIED F32.9 - MAJOR DEPRESSIVE DISORDER, SINGLE EPISODE, UNSPECIFIED (4) Dementia Code(s): F03.90 - UNSPECIFIED DEMENTIA WITHOUT BEHAVIORAL DISTURBANCE Assessment/Plan Current Medications Generic Name Dose Route Start Last Admin Trade Name Freq PRN Reason Stop Dose Admin Acetaminophen 650 mg 06/23/16 12:18 06/25/16 16:42 Tylenol - PO 650 mg Q6H PRN Administration FEVER OR PAIN Albuterol/Ipratropium 1 amp 06/30/16 11:33 Duoneb - NEB Q6H PRN SHORTNESS OF BREATH Amino Acids 30 ml 06/23/16 17:30 07/02/16 08:31 Prosource No Carb Liquid Pkt PO 30 ml BID@0800,1730 [facility] Administration Ascorbic Acid 500 mg 06/24/16 10:00 07/02/16 09:31 Vitamin C - PO 500 mg DAILY [facility] Administration Clonazepam 0.5 mg 06/23/16 14:00 07/02/16 14:04 Klonopin - PO 0.5 mg TID [facility] Administration Clonidine HCl 0.1 mg 06/30/16 10:00 06/30/16 10:07 Catapres Tts Patch - TD 0.1 mg Q7D@1000 [facility] Administration Digoxin 0.125 mg 06/24/16 10:00 07/02/16 09:31 Lanoxin - PO 0.125 mg Q2D [facility] Administration Ferrous Sulfate 325 mg 06/24/16 08:00 07/02/16 08:31 Feosol - PO 325 mg DAILY@0800 [facility] Administration Folic Acid 1 mg 06/24/16 10:00 07/02/16 09:31 Folic Acid - PO 1 mg DAILY [facility] Administration Guaifenesin/Codeine Phosphate 5 ml 07/02/16 14:26 Robitussin Ac - PO TID PRN COUGH Ceftriaxone Sodium 100 mls @ 200 mls/hr 06/24/16 10:00 07/02/16 09:31 Rocephin 2gm Ivpb (Pre-Docked) IVPB 200 mls/hr DAILY [facility] Administration Metronidazole 100 mls @ 100 mls/hr 06/23/16 18:00 07/02/16 10:41 Flagyl 500mg Premixed Ivpb - IVPB 100 mls/hr Q8H-IV [facility] Administration Potassium Chloride 10 meq/ 1,005 mls @ 42 mls/hr 07/01/16 16:00 07/01/16 18:01 Dextrose IVPB 42 mls/hr Q24H [facility] Administration Lactobacillus Acidophilus 1 tab 06/24/16 10:00 07/02/16 09:31 Bacid - PO 1 tab DAILY [facility] Administration Megestrol Acetate 400 mg 06/30/16 10:00 07/02/16 09:31 Megace Oral Suspension - PO 400 mg DAILY [facility] Administration Metoprolol Tartrate 25 mg 06/23/16 22:00 07/02/16 09:31 Lopressor - PO 25 mg BID [facility] Administration Mirtazapine 7.5 mg 06/29/16 22:00 07/01/16 21:42 Remeron - PO 7.5 mg HS [facility] Administration Multivitamins/Minerals/Vitamin C 1 tab 06/24/16 10:00 07/02/16 09:31 Tab-A-Vit - PO 1 tab DAILY DANA Administration Nystatin/Triamcinolone Acetonide 1 applic 07/01/16 22:00 07/02/16 09:32 Mycolog Ii Cream - TP 1 applic BID DANA Administration Ondansetron HCl 4 mg 06/23/16 12:18 Zofran Injection IVPB Q6H PRN NAUSEA Potassium Phos/Sodium Phos 1 packet 06/24/16 10:00 07/02/16 09:34 Phos-Nak Packet - PO 1 packet DAILY DANA Administration Impression 1. Hypernatremia 2. HTN 3. dementia 4. a-fib 5. intra-abdominal abscess 6. sepsis 7. pleural effusions Plan - cont with d5w with potassium - will supplement potassium PO as well - sodium level is improving - monitor bmp - will follow pt - cont current meds Dr Eid
[2016-07-02] MEDS: POTASSIUM CHLORIDE 20 MEQ in DEXTROSE 5%-WATER - 1,000 ML IVPB SCH (17:20)
[2016-07-02] MEDS: MIRTAZAPINE 15 MG TABLET (FP) PO SCH (22:14)
[2016-07-03] MEDS: METRONIDAZOLE 500 MG PREMIXED 100 ML IVPB SCH ×3 (01:41→17:21)
[2016-07-03] MEDS: clonazePAM 0.5 MG TABLET PO SCH ×3 (06:30→21:33)
[2016-07-03 07:58] LABS: BASOPHIL 0.5 % (0-2.0); EOSINOPHIL 1.9 % (0-4.5); MCH 28.7 pg (25.7-33.7); MCHC 32.6 g/dl (32.0-36.0); MEAN PLT VOLUME 7.5 fl (7.5-11.1); NEUTROPHILS 77.6 % (42.8-82.8); PLATELET COUNT 462 K/MM3 (134-434); RDW 15.4 % (11.6-15.6); WHITE BLOOD COUNT 10.9 K/mm3 (4.0-10.0)
[2016-07-03 08:20] LABS: ALBUMIN 2.1 g/dl (3.4-5.0); ANION GAP 6 (8-16); BILIRUBIN,TOTAL 0.3 mg/dL (0.2-1.0); CALCIUM 8.4 mg/dL (8.5-10.1); CO2 28 mmol/L (21-32); CREATININE 0.8 mg/dL (0.55-1.02); GLUCOSE,RANDOM 100 mg/dL (74-106); SGOT/AST 14 U/L (15-37); SGPT/ALT 10 U/L (12-78); TOT PROT 6.3 g/dl (6.4-8.2)
[2016-07-03 08:21] LABS: ALK PHOS 50 U/L (45-117)
--- NOTE | 2016-07-03 09:27 | PN ---
Progress Note (short form) - Note Progress Note: PULMONARY More somnolent this AM. No fevers recorded. Last Vital Signs Temp Pulse Resp BP Pulse Ox 98.2 F 101 H 18 158/71 95 07/03/16 06:00 07/03/16 06:00 07/03/16 06:00 07/03/16 06:00 07/02/16 09:00 Gen: breathing nonlabored Heart: RRR Lung: decreased breath sounds at the base Abd: soft, nontender, +JES drain with purulent drainage Ext: + trace edema CBC, BMP 07/03/16 07:00 07/03/16 07:00 Active Medications Acetaminophen (Tylenol -) 650 mg PO Q6H PRN PRN Reason: FEVER OR PAIN Last Admin: 06/25/16 16:42 Dose: 650 mg Albuterol/Ipratropium (Duoneb -) 1 amp NEB Q6H PRN PRN Reason: SHORTNESS OF BREATH Amino Acids (Prosource No Carb Liquid Pkt) 30 ml PO BID@0800,1730 [facility] Last Admin: 07/02/16 17:23 Dose: 30 ml Ascorbic Acid (Vitamin C -) 500 mg PO DAILY [facility] Last Admin: 07/02/16 09:31 Dose: 500 mg Clonazepam (Klonopin -) 0.5 mg PO TID [facility] Last Admin: 07/03/16 06:30 Dose: 0.5 mg Clonidine HCl (Catapres Tts Patch -) 0.1 mg TD Q7D@1000 [facility] Last Admin: 06/30/16 10:07 Dose: 0.1 mg Digoxin (Lanoxin -) 0.125 mg PO Q2D [facility] Last Admin: 07/02/16 09:31 Dose: 0.125 mg Ferrous Sulfate (Feosol -) 325 mg PO DAILY@0800 [facility] Last Admin: 07/02/16 08:31 Dose: 325 mg Folic Acid (Folic Acid -) 1 mg PO DAILY [facility] Last Admin: 07/02/16 09:31 Dose: 1 mg Guaifenesin/Codeine Phosphate (Robitussin Ac -) 5 ml PO TID PRN PRN Reason: COUGH Ceftriaxone Sodium (Rocephin 2gm Ivpb (Pre-Docked)) 100 mls @ 200 mls/hr IVPB DAILY [facility] Last Admin: 07/02/16 09:31 Dose: 200 mls/hr Metronidazole (Flagyl 500mg Premixed Ivpb -) 100 mls @ 100 mls/hr IVPB Q8H-IV [facility] Last Admin: 07/03/16 01:41 Dose: 100 mls/hr Potassium Chloride 20 meq/ (Dextrose) 1,010 mls @ 42 mls/hr IVPB Q24H [facility] Last Admin: 07/02/16 17:20 Dose: 42 mls/hr Lactobacillus Acidophilus (Bacid -) 1 tab PO DAILY [facility] Last Admin: 07/02/16 09:31 Dose: 1 tab Megestrol Acetate (Megace Oral Suspension -) 400 mg PO DAILY [facility] Last Admin: 07/02/16 09:31 Dose: 400 mg Metoprolol Tartrate (Lopressor -) 25 mg PO BID [facility] Last Admin: 07/02/16 22:14 Dose: 25 mg Mirtazapine (Remeron -) 7.5 mg PO HS [facility] Last Admin: 07/02/16 22:14 Dose: 7.5 mg Multivitamins/Minerals/Vitamin C (Tab-A-Vit -) 1 tab PO DAILY [facility] Last Admin: 07/02/16 09:31 Dose: 1 tab Nystatin/Triamcinolone Acetonide (Mycolog Ii Cream -) 1 applic TP BID [facility] Last Admin: 07/02/16 22:15 Dose: 1 applic Ondansetron HCl (Zofran Injection) 4 mg IVPB Q6H PRN PRN Reason: NAUSEA Potassium Phos/Sodium Phos (Phos-Nak Packet -) 1 packet PO DAILY [facility] Last Admin: 07/02/16 09:34 Dose: 1 packet A/P Perforated Uterus Intra-abdominal Abscess s/p ex-lap/Abscess drainage/washout/enterotomy with SB fecalith removal/primary repair Sepsis Atrial Fibrillation HTN Anxiety Dementia Pleural Effusions - continue antibiotics - monitor drain output - rate controlled - continue anticoagulation - PO per surgery - pain control - DVT prophylaxis - poor overall prognosis
--- NOTE | 2016-07-03 09:49 | PN ---
Progress Note, Physician History of Present Illness: IN BED WEAK POOR APPETITE - Current Medication List Current Medications: Active Medications Acetaminophen (Tylenol -) 650 mg PO Q6H PRN PRN Reason: FEVER OR PAIN Last Admin: 06/25/16 16:42 Dose: 650 mg Albuterol/Ipratropium (Duoneb -) 1 amp NEB Q6H PRN PRN Reason: SHORTNESS OF BREATH Amino Acids (Prosource No Carb Liquid Pkt) 30 ml PO BID@0800,1730 [facility] Last Admin: 07/02/16 17:23 Dose: 30 ml Ascorbic Acid (Vitamin C -) 500 mg PO DAILY [facility] Last Admin: 07/02/16 09:31 Dose: 500 mg Clonazepam (Klonopin -) 0.5 mg PO TID [facility] Last Admin: 07/03/16 06:30 Dose: 0.5 mg Clonidine HCl (Catapres Tts Patch -) 0.1 mg TD Q7D@1000 [facility] Last Admin: 06/30/16 10:07 Dose: 0.1 mg Digoxin (Lanoxin -) 0.125 mg PO Q2D [facility] Last Admin: 07/02/16 09:31 Dose: 0.125 mg Ferrous Sulfate (Feosol -) 325 mg PO DAILY@0800 [facility] Last Admin: 07/02/16 08:31 Dose: 325 mg Folic Acid (Folic Acid -) 1 mg PO DAILY [facility] Last Admin: 07/02/16 09:31 Dose: 1 mg Guaifenesin/Codeine Phosphate (Robitussin Ac -) 5 ml PO TID PRN PRN Reason: COUGH Ceftriaxone Sodium (Rocephin 2gm Ivpb (Pre-Docked)) 100 mls @ 200 mls/hr IVPB DAILY [facility] Last Admin: 07/02/16 09:31 Dose: 200 mls/hr Metronidazole (Flagyl 500mg Premixed Ivpb -) 100 mls @ 100 mls/hr IVPB Q8H-IV [facility] Last Admin: 07/03/16 01:41 Dose: 100 mls/hr Potassium Chloride 20 meq/ (Dextrose) 1,010 mls @ 42 mls/hr IVPB Q24H [facility] Last Admin: 07/02/16 17:20 Dose: 42 mls/hr Lactobacillus Acidophilus (Bacid -) 1 tab PO DAILY [facility] Last Admin: 07/02/16 09:31 Dose: 1 tab Megestrol Acetate (Megace Oral Suspension -) 400 mg PO DAILY [facility] Last Admin: 07/02/16 09:31 Dose: 400 mg Metoprolol Tartrate (Lopressor -) 25 mg PO BID [facility] Last Admin: 07/02/16 22:14 Dose: 25 mg Mirtazapine (Remeron -) 7.5 mg PO HS [facility] Last Admin: 07/02/16 22:14 Dose: 7.5 mg Multivitamins/Minerals/Vitamin C (Tab-A-Vit -) 1 tab PO DAILY [facility] Last Admin: 07/02/16 09:31 Dose: 1 tab Nystatin/Triamcinolone Acetonide (Mycolog Ii Cream -) 1 applic TP BID [facility] Last Admin: 07/02/16 22:15 Dose: 1 applic Ondansetron HCl (Zofran Injection) 4 mg IVPB Q6H PRN PRN Reason: NAUSEA Potassium Phos/Sodium Phos (Phos-Nak Packet -) 1 packet PO DAILY [facility] Last Admin: 07/02/16 09:34 Dose: 1 packet - Objective Vital Signs: Vital Signs Temperature 98.2 F 07/03/16 06:00 Pulse Rate 101 H 07/03/16 06:00 Respiratory Rate 18 07/03/16 06:00 Blood Pressure 158/71 07/03/16 06:00 O2 Sat by Pulse Oximetry (%) 95 07/02/16 09:00 Cardiovascular: Yes: S1, S2 Respiratory: Yes: Regular, CTA Bilaterally Gastrointestinal: Yes: Normal Bowel Sounds, Soft Genitourinary: Yes: Other (DRAIN IN PLACE) Labs: CBC, BMP 07/03/16 07:00 07/03/16 07:00 INR, PTT INR 1.73 (0.82-1.09) H 06/27/16 10:15 Problem List - Problems (1) Sepsis Assessment/Plan: IV ABX MONITOR LABS Code(s): A41.9 - SEPSIS, UNSPECIFIED ORGANISM Qualifiers: Qualified Code(s): A41.51 - Sepsis due to Escherichia coli [E. coli] (2) Uterine abscess Assessment/Plan: IR/BRIDGE INSPECTOR FOLLOW ---ABX ID ON CASE Code(s): N71.9 - INFLAMMATORY DISEASE OF UTERUS, UNSPECIFIED (3) Anemia Assessment/Plan: MONITOR LABS Code(s): D64.9 - ANEMIA, UNSPECIFIED Qualifiers: Qualified Code(s): D63.8 - Anemia in other chronic diseases classified elsewhere
[2016-07-03] MEDS: CEFTRIAXONE 2G/100 ML IVPB SCH (10:08)
[2016-07-03] MEDS: AMINO ACIDS/PROTEIN HYDROLYS 30 ML LIQUID.PKT PO SCH ×2 (10:08→17:18)
[2016-07-03] MEDS: MEGESTROL ACETATE 400 MG/10 ML UNIT DOSE CUP PO SCH (10:08)
[2016-07-03] MEDS: ASCORBIC ACID 500 MG TABLET (FP) PO SCH (10:09)
[2016-07-03] MEDS: NYSTATIN/TRIAMCINOLONE TOPICAL CREAM 15 GM TUBE TP SCH (10:09)
[2016-07-03] MEDS: FOLIC ACID 1 MG TABLET (FP) PO SCH (10:09)
[2016-07-03] MEDS: LACTOBACILLUS ACIDOPHILUS 1 EACH TAB (FP) PO SCH (10:09)
[2016-07-03] MEDS: METOPROLOL TARTRATE 25 MG TABLET (FP) PO SCH ×2 (10:09→21:33)
[2016-07-03] MEDS: FERROUS SO4 325 MG TABLET (FP) PO SCH (10:09)
[2016-07-03] MEDS: MULTIVITAMINS (DAILY MVI) TABLET (FP) PO SCH (10:09)
[2016-07-03] MEDS: NAPH,MB-DB/K PH,MBDB POWDER PACKET PO SCH (10:09)
--- NOTE | 2016-07-03 13:51 | PN ---
GI Progress Note Subjective: GASTROENTEROLOGY CHART REVIEWED ASK TO EVALUATE THE PATIENT FOR A PEG. HAD SIGNED OFF CASE A COUPLE OF WEEKS AGO. ASKED TO RECONSULT PATIENT IS NOT MEETING NUTRITIONAL GOALS PATIENT STILL HAS AN INFECTED PERITONEUM, JES DRAIN STILL IN PLACE AND DRAINING CUSTARD LIKE PURULENT FLUID!! - Objective Vital Signs: Vital Signs Temperature 99.0 F 07/03/16 10:00 Pulse Rate 97 H 07/03/16 11:22 Respiratory Rate 20 07/03/16 10:00 Blood Pressure 151/69 07/03/16 10:00 O2 Sat by Pulse Oximetry (%) 92 L 07/03/16 11:22 Constitutional: Calm Eyes: Yes: Conjunctiva Clear Neck: Yes: Supple Cardiovascular: Yes: Regular Rate and Rhythm Respiratory: Yes: WNL Gastrointestinal Inspection: Yes: Distention ...Auscultate: Yes: Normoactive Bowel Sounds ...Palpate: Yes: Soft, Other (SCARS HEALING, JES DRAIN WITH 10CC OF PURULENT DRAINAGE) Extremities: Yes: WNL Labs: CBC, BMP 07/03/16 07:00 07/03/16 07:00 INR, PTT INR 1.73 (0.82-1.09) H 06/27/16 10:15 Microbiology 06/15/16 15:45 Peritoneal Fluid Gram Stain - Final 06/15/16 15:45 Peritoneal Fluid Anaerobic Culture - Final Prevotella [facility]aninogen[facility] Laboratory Tests 06/30/16 07/03/16 07/03/16 08:20 07:00 07:00 WBC 10.9 H RBC 3.24 L Hgb 9.3 L D Hct 28.5 L MCV 88.0 MCHC 32.6 RDW 15.4 Plt Count 462 H D MPV 7.5 Neutrophils % 77.6 Lymphocytes % 13.0 Monocytes % 7.0 Eosinophils % 1.9 Basophils % 0.5 Sodium 144 Potassium 3.9 Chloride 110 H Carbon Dioxide 28 Anion Gap 6 L BUN 23 H Creatinine 0.8 Creat Clearance w eGFR > 60 Random Glucose 100 Calcium 8.4 L Total Bilirubin 0.3 D AST 14 L ALT 10 L D Alkaline Phosphatase 50 Total Protein 6.3 L Albumin 2.1 L Prealbumin 9.01 L Problem List - Problems (1) Pelvic fluid collection Assessment/Plan: PELVIC ABSCESS FORM PERFORATED UTERUS, PATH SO FAR WITHOUT MALIGNANCY THE ISSUE OF PLACING A PEG TUBE IS THAT THE ABDOMEN AND PELVIS IS INFECTED. PEG WOUND MAY NOT HEAL AND MAY GET INFECTED AND RESULT IN FURTHER PERITONITIS. WILL SPEAK WITH DR KING THIS WEEK TO DISCUSS OPTIONS. BELKIS YAÑEZ MD Code(s): R18.8 - OTHER ASCITES (2) Septic shock Code(s): A41.9 - SEPSIS, UNSPECIFIED ORGANISM R65.21 - SEVERE SEPSIS WITH SEPTIC SHOCK (3) Dementia Code(s): F03.90 - UNSPECIFIED DEMENTIA WITHOUT BEHAVIORAL DISTURBANCE (4) Afib Code(s): I48.91 - UNSPECIFIED ATRIAL FIBRILLATION
[2016-07-03] MEDS: POTASSIUM CHLORIDE 20 MEQ in DEXTROSE 5%-WATER - 1,000 ML IVPB SCH (16:44)
--- NOTE | 2016-07-03 17:37 | PN ---
Progress Note, Physician History of Present Illness: Pt seen and examined at bedside. She has poor PO intake. - Current Medication List Current Medications: Active Medications Acetaminophen (Tylenol -) 650 mg PO Q6H PRN PRN Reason: FEVER OR PAIN Last Admin: 06/25/16 16:42 Dose: 650 mg Albuterol/Ipratropium (Duoneb -) 1 amp NEB Q6H PRN PRN Reason: SHORTNESS OF BREATH Amino Acids (Prosource No Carb Liquid Pkt) 30 ml PO BID@0800,1730 [facility] Last Admin: 07/03/16 17:18 Dose: Not Given Ascorbic Acid (Vitamin C -) 500 mg PO DAILY [facility] Last Admin: 07/03/16 10:09 Dose: 500 mg Clonazepam (Klonopin -) 0.5 mg PO TID [facility] Last Admin: 07/03/16 14:30 Dose: 0.5 mg Clonidine HCl (Catapres Tts Patch -) 0.1 mg TD Q7D@1000 [facility] Last Admin: 06/30/16 10:07 Dose: 0.1 mg Digoxin (Lanoxin -) 0.125 mg PO Q2D [facility] Last Admin: 07/02/16 09:31 Dose: 0.125 mg Ferrous Sulfate (Feosol -) 325 mg PO DAILY@0800 [facility] Last Admin: 07/03/16 10:09 Dose: 325 mg Folic Acid (Folic Acid -) 1 mg PO DAILY [facility] Last Admin: 07/03/16 10:09 Dose: 1 mg Guaifenesin/Codeine Phosphate (Robitussin Ac -) 5 ml PO TID PRN PRN Reason: COUGH Last Admin: 07/03/16 10:08 Dose: 5 ml Ceftriaxone Sodium (Rocephin 2gm Ivpb (Pre-Docked)) 100 mls @ 200 mls/hr IVPB DAILY [facility] Last Admin: 07/03/16 10:08 Dose: 200 mls/hr Metronidazole (Flagyl 500mg Premixed Ivpb -) 100 mls @ 100 mls/hr IVPB Q8H-IV [facility] Last Admin: 07/03/16 17:21 Dose: 100 mls/hr Potassium Chloride 20 meq/ (Dextrose) 1,010 mls @ 42 mls/hr IVPB Q24H [facility] Last Admin: 07/03/16 16:44 Dose: Not Given Lactobacillus Acidophilus (Bacid -) 1 tab PO DAILY [facility] Last Admin: 07/03/16 10:09 Dose: 1 tab Megestrol Acetate (Megace Oral Suspension -) 400 mg PO DAILY [facility] Last Admin: 07/03/16 10:08 Dose: 400 mg Metoprolol Tartrate (Lopressor -) 25 mg PO BID [facility] Last Admin: 07/03/16 10:09 Dose: 25 mg Mirtazapine (Remeron -) 7.5 mg PO HS [facility] Last Admin: 07/02/16 22:14 Dose: 7.5 mg Multivitamins/Minerals/Vitamin C (Tab-A-Vit -) 1 tab PO DAILY [facility] Last Admin: 07/03/16 10:09 Dose: 1 tab Nystatin/Triamcinolone Acetonide (Mycolog Ii Cream -) 1 applic TP BID [facility] Last Admin: 07/03/16 10:09 Dose: 1 applic Ondansetron HCl (Zofran Injection) 4 mg IVPB Q6H PRN PRN Reason: NAUSEA Potassium Phos/Sodium Phos (Phos-Nak Packet -) 1 packet PO DAILY [facility] Last Admin: 07/03/16 10:09 Dose: 1 packet - Objective Vital Signs: Vital Signs Temperature 99.7 F H 07/03/16 14:33 Pulse Rate 95 H 07/03/16 14:33 Respiratory Rate 20 07/03/16 14:33 Blood Pressure 99/56 07/03/16 14:33 O2 Sat by Pulse Oximetry (%) 92 L 07/03/16 11:22 Constitutional: Yes: Anxious Eyes: Yes: Conjunctiva Clear HENT: Yes: Atraumatic Neck: Yes: Supple Cardiovascular: Yes: S1, S2 Respiratory: Yes: On Nasal O2 Gastrointestinal: Yes: Soft, Other (eagle drain) Genitourinary: Yes: Incontinence Edema: No Neurological: Yes: Confusion Labs: CBC, BMP 07/03/16 07:00 07/03/16 07:00 INR, PTT INR 1.73 (0.82-1.09) H 06/27/16 10:15 Problem List - Problems (1) Afib Code(s): I48.91 - UNSPECIFIED ATRIAL FIBRILLATION (2) Anemia Code(s): D64.9 - ANEMIA, UNSPECIFIED Qualifiers: Qualified Code(s): D63.8 - Anemia in other chronic diseases classified elsewhere (3) Anxiety and depression Code(s): F41.9 - ANXIETY DISORDER, UNSPECIFIED F32.9 - MAJOR DEPRESSIVE DISORDER, SINGLE EPISODE, UNSPECIFIED (4) Dementia Code(s): F03.90 - UNSPECIFIED DEMENTIA WITHOUT BEHAVIORAL DISTURBANCE Assessment/Plan Current Medications Generic Name Dose Route Start Last Admin Trade Name Freq PRN Reason Stop Dose Admin Acetaminophen 650 mg 06/23/16 12:18 06/25/16 16:42 Tylenol - PO 650 mg Q6H PRN Administration FEVER OR PAIN Albuterol/Ipratropium 1 amp 06/30/16 11:33 Duoneb - NEB Q6H PRN SHORTNESS OF BREATH Amino Acids 30 ml 06/23/16 17:30 07/03/16 17:18 Prosource No Carb Liquid Pkt PO Not Given BID@0800,1730 [facility] Ascorbic Acid 500 mg 06/24/16 10:00 07/03/16 10:09 Vitamin C - PO 500 mg DAILY [facility] Administration Clonazepam 0.5 mg 06/23/16 14:00 07/03/16 14:30 Klonopin - PO 0.5 mg TID [facility] Administration Clonidine HCl 0.1 mg 06/30/16 10:00 06/30/16 10:07 Catapres Tts Patch - TD 0.1 mg Q7D@1000 [facility] Administration Digoxin 0.125 mg 06/24/16 10:00 07/02/16 09:31 Lanoxin - PO 0.125 mg Q2D [facility] Administration Ferrous Sulfate 325 mg 06/24/16 08:00 07/03/16 10:09 Feosol - PO 325 mg DAILY@0800 [facility] Administration Folic Acid 1 mg 06/24/16 10:00 07/03/16 10:09 Folic Acid - PO 1 mg DAILY [facility] Administration Guaifenesin/Codeine Phosphate 5 ml 07/02/16 14:26 07/03/16 10:08 Robitussin Ac - PO 5 ml TID PRN Administration COUGH Ceftriaxone Sodium 100 mls @ 200 mls/hr 06/24/16 10:00 07/03/16 10:08 Rocephin 2gm Ivpb (Pre-Docked) IVPB 200 mls/hr DAILY [facility] Administration Metronidazole 100 mls @ 100 mls/hr 06/23/16 18:00 07/03/16 17:21 Flagyl 500mg Premixed Ivpb - IVPB 100 mls/hr Q8H-IV [facility] Administration Potassium Chloride 20 meq/ 1,010 mls @ 42 mls/hr 07/02/16 15:57 07/03/16 16:44 Dextrose IVPB Not Given Q24H [facility] Lactobacillus Acidophilus 1 tab 06/24/16 10:00 07/03/16 10:09 Bacid - PO 1 tab DAILY [facility] Administration Megestrol Acetate 400 mg 06/30/16 10:00 07/03/16 10:08 Megace Oral Suspension - PO 400 mg DAILY [facility] Administration Metoprolol Tartrate 25 mg 06/23/16 22:00 07/03/16 10:09 Lopressor - PO 25 mg BID [facility] Administration Mirtazapine 7.5 mg 06/29/16 22:00 07/02/16 22:14 Remeron - PO 7.5 mg HS [facility] Administration Multivitamins/Minerals/Vitamin C 1 tab 06/24/16 10:00 07/03/16 10:09 Tab-A-Vit - PO 1 tab DAILY [facility] Administration Nystatin/Triamcinolone Acetonide 1 applic 07/01/16 22:00 07/03/16 10:09 Mycolog Ii Cream - TP 1 applic BID [facility] Administration Ondansetron HCl 4 mg 06/23/16 12:18 Zofran Injection IVPB Q6H PRN NAUSEA Potassium Phos/Sodium Phos 1 packet 06/24/16 10:00 07/03/16 10:09 Phos-Nak Packet - PO 1 packet DAILY [facility] Administration Impression 1. Hypernatremia 2. HTN 3. dementia 4. a-fib 5. intra-abdominal abscess 6. sepsis 7. pleural effusions Plan - sodium is improved - decrease rate of d5w - potassium is stable - monitor bmp - will follow pt - cont current meds Dr Eid
[2016-07-03] MEDS ORDERED: POTASSIUM CHLORIDE 20 MEQ in DEXTROSE 5%-WATER - 1,000 ML IVPB SCH (17:38)
[2016-07-03] MEDS: MIRTAZAPINE 15 MG TABLET (FP) PO SCH (21:33)
[2016-07-04] MEDS: METRONIDAZOLE 500 MG PREMIXED 100 ML IVPB SCH ×2 (02:18→09:46)
[2016-07-04] MEDS: clonazePAM 0.5 MG TABLET PO SCH ×3 (06:29→21:46)
--- NOTE | 2016-07-04 06:35 | PN ---
Progress Note, Physician Chief Complaint: Pt denies chest pain; disoriented to place, time. History of Present Illness: 80yr old white woman presented to ED via EMS from [facility] with c/ o abd pain. According to patient son, patient has been having abd pain all day starting at 6pm, pain progressed at 1015pm- patient given oxycontin with no relief- patient sent to this ED for evaluation. Son inform repairer typewriter that patient recently admitted May 27 for "blood infection" and d/c to [facility] for rehab but has not gotten out of bed per son. Patient also has not had a BM today. Denies any other complaints at this time. - Current Medication List Current Medications: Active Medications Acetaminophen (Tylenol -) 650 mg PO Q6H PRN PRN Reason: FEVER OR PAIN Last Admin: 06/25/16 16:42 Dose: 650 mg Albuterol/Ipratropium (Duoneb -) 1 amp NEB Q6H PRN PRN Reason: SHORTNESS OF BREATH Amino Acids (Prosource No Carb Liquid Pkt) 30 ml PO BID@0800,1730 [facility] Last Admin: 07/03/16 17:18 Dose: Not Given Ascorbic Acid (Vitamin C -) 500 mg PO DAILY [facility] Last Admin: 07/03/16 10:09 Dose: 500 mg Clonazepam (Klonopin -) 0.5 mg PO TID [facility] Last Admin: 07/04/16 06:29 Dose: 0.5 mg Clonidine HCl (Catapres Tts Patch -) 0.1 mg TD Q7D@1000 [facility] Last Admin: 06/30/16 10:07 Dose: 0.1 mg Digoxin (Lanoxin -) 0.125 mg PO Q2D [facility] Last Admin: 07/02/16 09:31 Dose: 0.125 mg Ferrous Sulfate (Feosol -) 325 mg PO DAILY@0800 [facility] Last Admin: 07/03/16 10:09 Dose: 325 mg Folic Acid (Folic Acid -) 1 mg PO DAILY [facility] Last Admin: 07/03/16 10:09 Dose: 1 mg Guaifenesin (Robitussin Dm -) 10 ml PO Q8H PRN PRN Reason: COUGH Ceftriaxone Sodium (Rocephin 2gm Ivpb (Pre-Docked)) 100 mls @ 200 mls/hr IVPB DAILY [facility] Last Admin: 07/03/16 10:08 Dose: 200 mls/hr Metronidazole (Flagyl 500mg Premixed Ivpb -) 100 mls @ 100 mls/hr IVPB Q8H-IV [facility] Last Admin: 07/04/16 02:18 Dose: 100 mls/hr Potassium Chloride 20 meq/ (Dextrose) 1,010 mls @ 35 mls/hr IVPB Q24H [facility] Last Admin: 07/03/16 17:53 Dose: 35 mls/hr Lactobacillus Acidophilus (Bacid -) 1 tab PO DAILY [facility] Last Admin: 07/03/16 10:09 Dose: 1 tab Megestrol Acetate (Megace Oral Suspension -) 400 mg PO DAILY [facility] Last Admin: 07/03/16 10:08 Dose: 400 mg Metoprolol Tartrate (Lopressor -) 25 mg PO BID [facility] Last Admin: 07/03/16 21:33 Dose: 25 mg Mirtazapine (Remeron -) 7.5 mg PO HS [facility] Last Admin: 07/03/16 21:33 Dose: 7.5 mg Multivitamins/Minerals/Vitamin C (Tab-A-Vit -) 1 tab PO DAILY [facility] Last Admin: 07/03/16 10:09 Dose: 1 tab Nystatin/Triamcinolone Acetonide (Mycolog Ii Cream -) 1 applic TP BID [facility] Last Admin: 07/03/16 10:09 Dose: 1 applic Ondansetron HCl (Zofran Injection) 4 mg IVPB Q6H PRN PRN Reason: NAUSEA Potassium Phos/Sodium Phos (Phos-Nak Packet -) 1 packet PO DAILY [facility] Last Admin: 07/03/16 10:09 Dose: 1 packet - Objective Vital Signs: Vital Signs Temperature 98.6 F 07/03/16 16:30 Pulse Rate 78 07/03/16 16:30 Respiratory Rate 18 07/03/16 16:30 Blood Pressure 118/64 07/03/16 16:30 O2 Sat by Pulse Oximetry (%) 92 L 07/03/16 11:22 Constitutional: Yes: Anxious Eyes: Yes: WNL HENT: Yes: WNL Neck: Yes: WNL Cardiovascular: Yes: Pulse Irregular Respiratory: Yes: Regular Gastrointestinal: Yes: Soft ...Rectal Exam: Yes: Deferred Genitourinary: No: Anuria Musculoskeletal: Yes: Muscle Weakness Extremities: Yes: Cool Edema: No Peripheral Pulses WNL: No Peripheral Pulses: Left Doralis Pedis: 1+, Right Dorsalis Pedis: 1+ Neurological: Yes: Confusion, Weakness Psychiatric: Yes: Other (dementia) Labs: CBC, BMP 07/03/16 07:00 07/03/16 07:00 INR, PTT INR 1.73 (0.82-1.09) H 06/27/16 10:15 Problem List - Problems (1) Afib Assessment/Plan: Decreased digoxin to 0.125 mg every other day (level 1.47-->now 0.6); keep level 0.5-1.0. Continue metoprolol. On Lovenox until PO anticoagulation restarted (consider NOAC). Replete K+; f/u Mg level. Code(s): I48.91 - UNSPECIFIED ATRIAL FIBRILLATION (2) Intra-abdominal abscess Assessment/Plan: Drainage f/u assessment with surgeon. As discussed with Dr. Cordon (Supervisor Electric), pt is at high risk for hysterectomy; pt and family defer surgery presently. Code(s): K65.1 - PERITONEAL ABSCESS (3) Anxiety Code(s): F41.9 - ANXIETY DISORDER, UNSPECIFIED (4) HTN (hypertension) Assessment/Plan: On metoprolol, and clonidine restarted. Risk of rebound hypertension when abruptly stopping clonidine (exacerbated when also on metoprolol). Code(s): I10 - ESSENTIAL (PRIMARY) HYPERTENSION Qualifiers: Qualified Code(s): I10 - Essential (primary) hypertension (5) Sepsis Assessment/Plan: on antibiotics; followed by ID. Maintain hydration. LVEF WNL by ECHO. Code(s): A41.9 - SEPSIS, UNSPECIFIED ORGANISM Qualifiers: Qualified Code(s): A41.51 - Sepsis due to Escherichia coli [E. coli] (6) Anemia Code(s): D64.9 - ANEMIA, UNSPECIFIED Qualifiers: Qualified Code(s): D63.8 - Anemia in other chronic diseases classified elsewhere (7) GI tract abscess Code(s): K63.0 - ABSCESS OF INTESTINE (8) Hypokalemia Code(s): E87.6 - HYPOKALEMIA
--- NOTE | 2016-07-04 06:40 | PN ---
Progress Note, Physician Chief Complaint: Pt denies chest pain; disoriented to place, time. Pt's son says she ate a moderate portion of her dinner. History of Present Illness: 80yr old white woman with Hx HTN, ?dementia, presented to ED via EMS from [facility] with c/o abd pain. According to patient son, patient has been having abd pain all day starting at 6pm, pain progressed at 1015pm- patient given oxycontin with no relief- patient sent to this ED for evaluation. Son inform typewriter aligner that patient recently admitted May 27 for "blood infection" and d/c to [facility] for rehab but has not gotten out of bed per son. Patient also has not had a BM today. Denies any other complaints at this time. - Current Medication List Current Medications: Active Medications Acetaminophen (Tylenol -) 650 mg PO Q6H PRN PRN Reason: FEVER OR PAIN Last Admin: 06/25/16 16:42 Dose: 650 mg Albuterol/Ipratropium (Duoneb -) 1 amp NEB Q6H PRN PRN Reason: SHORTNESS OF BREATH Amino Acids (Prosource No Carb Liquid Pkt) 30 ml PO BID@0800,1730 [facility] Last Admin: 07/03/16 17:18 Dose: Not Given Ascorbic Acid (Vitamin C -) 500 mg PO DAILY [facility] Last Admin: 07/03/16 10:09 Dose: 500 mg Clonazepam (Klonopin -) 0.5 mg PO TID [facility] Last Admin: 07/04/16 06:29 Dose: 0.5 mg Clonidine HCl (Catapres Tts Patch -) 0.1 mg TD Q7D@1000 [facility] Last Admin: 06/30/16 10:07 Dose: 0.1 mg Digoxin (Lanoxin -) 0.125 mg PO Q2D [facility] Last Admin: 07/02/16 09:31 Dose: 0.125 mg Ferrous Sulfate (Feosol -) 325 mg PO DAILY@0800 [facility] Last Admin: 07/03/16 10:09 Dose: 325 mg Folic Acid (Folic Acid -) 1 mg PO DAILY [facility] Last Admin: 07/03/16 10:09 Dose: 1 mg Guaifenesin (Robitussin Dm -) 10 ml PO Q8H PRN PRN Reason: COUGH Ceftriaxone Sodium (Rocephin 2gm Ivpb (Pre-Docked)) 100 mls @ 200 mls/hr IVPB DAILY [facility] Last Admin: 07/03/16 10:08 Dose: 200 mls/hr Metronidazole (Flagyl 500mg Premixed Ivpb -) 100 mls @ 100 mls/hr IVPB Q8H-IV [facility] Last Admin: 07/04/16 02:18 Dose: 100 mls/hr Potassium Chloride 20 meq/ (Dextrose) 1,010 mls @ 35 mls/hr IVPB Q24H [facility] Last Admin: 07/03/16 17:53 Dose: 35 mls/hr Lactobacillus Acidophilus (Bacid -) 1 tab PO DAILY [facility] Last Admin: 07/03/16 10:09 Dose: 1 tab Megestrol Acetate (Megace Oral Suspension -) 400 mg PO DAILY [facility] Last Admin: 07/03/16 10:08 Dose: 400 mg Metoprolol Tartrate (Lopressor -) 25 mg PO BID [facility] Last Admin: 07/03/16 21:33 Dose: 25 mg Mirtazapine (Remeron -) 7.5 mg PO HS [facility] Last Admin: 07/03/16 21:33 Dose: 7.5 mg Multivitamins/Minerals/Vitamin C (Tab-A-Vit -) 1 tab PO DAILY [facility] Last Admin: 07/03/16 10:09 Dose: 1 tab Nystatin/Triamcinolone Acetonide (Mycolog Ii Cream -) 1 applic TP BID [facility] Last Admin: 07/03/16 10:09 Dose: 1 applic Ondansetron HCl (Zofran Injection) 4 mg IVPB Q6H PRN PRN Reason: NAUSEA Potassium Phos/Sodium Phos (Phos-Nak Packet -) 1 packet PO DAILY [facility] Last Admin: 07/03/16 10:09 Dose: 1 packet - Objective Vital Signs: Vital Signs Temperature 98.6 F 07/03/16 16:30 Pulse Rate 78 07/03/16 16:30 Respiratory Rate 18 07/03/16 16:30 Blood Pressure 118/64 07/03/16 16:30 O2 Sat by Pulse Oximetry (%) 92 L 07/03/16 11:22 Constitutional: Yes: Anxious Eyes: Yes: WNL HENT: Yes: Other (poor dentition) Neck: Yes: WNL Cardiovascular: Yes: Pulse Irregular Respiratory: Yes: Diminished ...Rectal Exam: Yes: Deferred Genitourinary: Yes: Anuria Musculoskeletal: Yes: Muscle Weakness Extremities: Yes: Cool Edema: No Peripheral Pulses WNL: No Neurological: Yes: Confusion, Weakness Psychiatric: Yes: Other Labs: CBC, BMP 07/03/16 07:00 07/03/16 07:00 INR, PTT INR 1.73 (0.82-1.09) H 06/27/16 10:15 Abnormal Lab Results 07/03/16 07/03/16 07:00 07:00 WBC 10.9 H RBC 3.24 L Hgb 9.3 L D Hct 28.5 L Plt Count 462 H D Chloride 110 H Anion Gap 6 L BUN 23 H Calcium 8.4 L AST 14 L ALT 10 L D Total Protein 6.3 L Albumin 2.1 L Problem List - Problems (1) Afib Assessment/Plan: Decreased digoxin to 0.125 mg every other day (level 1.47-->now 0.6); keep level 0.5-1.0. Continue metoprolol. On Lovenox until PO anticoagulation restarted (consider NOAC). K and Mg WNL. Code(s): I48.91 - UNSPECIFIED ATRIAL FIBRILLATION (2) Intra-abdominal abscess Assessment/Plan: Drainage f/u assessment with surgeon. As discussed with Dr. Cordon (Site Leasing Agent), pt is at high risk for hysterectomy; pt and family defer surgery presently. On antibiotics per ID. Code(s): K65.1 - PERITONEAL ABSCESS (3) Anxiety Code(s): F41.9 - ANXIETY DISORDER, UNSPECIFIED (4) HTN (hypertension) Code(s): I10 - ESSENTIAL (PRIMARY) HYPERTENSION Qualifiers: Qualified Code(s): I10 - Essential (primary) hypertension (5) Sepsis Assessment/Plan: on antibiotics; followed by ID. Maintain hydration (changes by wire loop machine operator noted). LVEF WNL by ECHO. Code(s): A41.9 - SEPSIS, UNSPECIFIED ORGANISM Qualifiers: Qualified Code(s): A41.51 - Sepsis due to Escherichia coli [E. coli] (6) Anemia Code(s): D64.9 - ANEMIA, UNSPECIFIED Qualifiers: Qualified Code(s): D63.8 - Anemia in other chronic diseases classified elsewhere (7) GI tract abscess Assessment/Plan: CT abdomen results relatively unchanged (large left air/fluid loculation; R>L pleural effusion). Code(s): K63.0 - ABSCESS OF INTESTINE (8) Hypokalemia Assessment/Plan: On electrolytes and fluids; normal Na, K and Mg (followed by wire loop machine operator). Code(s): E87.6 - HYPOKALEMIA
[2016-07-04] MEDS: NYSTATIN/TRIAMCINOLONE TOPICAL CREAM 15 GM TUBE TP SCH ×3 (08:45→21:48)
[2016-07-04] MEDS: FERROUS SO4 325 MG TABLET (FP) PO SCH (08:45)
[2016-07-04] MEDS: AMINO ACIDS/PROTEIN HYDROLYS 30 ML LIQUID.PKT PO SCH ×2 (08:45→17:22)
[2016-07-04 08:50] LABS: CREATININE 0.6 mg/dL (0.55-1.02); PHOSPHOROUS 3.4 mg/dL (2.5-4.9)
[2016-07-04] MEDS: METOPROLOL TARTRATE 25 MG TABLET (FP) PO SCH ×2 (09:46→21:47)
[2016-07-04] MEDS: MULTIVITAMINS (DAILY MVI) TABLET (FP) PO SCH (09:46)
[2016-07-04] MEDS: guaiFENesin/D-METHORPHAN HB 10 ML UNIT-DOSE CUPS PO PRN (09:46)
[2016-07-04] MEDS: ASCORBIC ACID 500 MG TABLET (FP) PO SCH (09:46)
[2016-07-04] MEDS: MEGESTROL ACETATE 400 MG/10 ML UNIT DOSE CUP PO SCH (09:46)
[2016-07-04] MEDS: FOLIC ACID 1 MG TABLET (FP) PO SCH (09:46)
[2016-07-04] MEDS: NAPH,MB-DB/K PH,MBDB POWDER PACKET PO SCH (09:47)
[2016-07-04] MEDS: LACTOBACILLUS ACIDOPHILUS 1 EACH TAB (FP) PO SCH (09:47)
[2016-07-04] MEDS: DIGOXIN 0.125 MG TABLET (FP) PO SCH (09:47)
--- NOTE | 2016-07-04 10:18 | PN ---
Progress Note, Physician Chief Complaint: ID GI note reviewed regarding persistence of purulent drainage Absent symptoms of sepsis intermediate accountant antibiotics given without significant change in condition - Current Medication List Current Medications: Active Medications Acetaminophen (Tylenol -) 650 mg PO Q6H PRN PRN Reason: FEVER OR PAIN Last Admin: 06/25/16 16:42 Dose: 650 mg Albuterol/Ipratropium (Duoneb -) 1 amp NEB Q6H PRN PRN Reason: SHORTNESS OF BREATH Amino Acids (Prosource No Carb Liquid Pkt) 30 ml PO BID@0800,1730 [facility] Last Admin: 07/04/16 08:45 Dose: 30 ml Ascorbic Acid (Vitamin C -) 500 mg PO DAILY [facility] Last Admin: 07/04/16 09:46 Dose: 500 mg Clonazepam (Klonopin -) 0.5 mg PO TID [facility] Last Admin: 07/04/16 06:29 Dose: 0.5 mg Clonidine HCl (Catapres Tts Patch -) 0.1 mg TD Q7D@1000 [facility] Last Admin: 06/30/16 10:07 Dose: 0.1 mg Digoxin (Lanoxin -) 0.125 mg PO Q2D [facility] Last Admin: 07/04/16 09:47 Dose: 0.125 mg Ferrous Sulfate (Feosol -) 325 mg PO DAILY@0800 [facility] Last Admin: 07/04/16 08:45 Dose: 325 mg Folic Acid (Folic Acid -) 1 mg PO DAILY [facility] Last Admin: 07/04/16 09:46 Dose: 1 mg Guaifenesin (Robitussin Dm -) 10 ml PO Q8H PRN PRN Reason: COUGH Last Admin: 07/04/16 09:46 Dose: 10 ml Ceftriaxone Sodium (Rocephin 2gm Ivpb (Pre-Docked)) 100 mls @ 200 mls/hr IVPB DAILY [facility] Last Admin: 07/03/16 10:08 Dose: 200 mls/hr Metronidazole (Flagyl 500mg Premixed Ivpb -) 100 mls @ 100 mls/hr IVPB Q8H-IV [facility] Last Admin: 07/04/16 09:46 Dose: 100 mls/hr Potassium Chloride 20 meq/ (Dextrose) 1,010 mls @ 35 mls/hr IVPB Q24H [facility] Last Admin: 07/03/16 17:53 Dose: 35 mls/hr Lactobacillus Acidophilus (Bacid -) 1 tab PO DAILY [facility] Last Admin: 07/04/16 09:47 Dose: 1 tab Megestrol Acetate (Megace Oral Suspension -) 400 mg PO DAILY [facility] Last Admin: 07/04/16 09:46 Dose: 400 mg Metoprolol Tartrate (Lopressor -) 25 mg PO BID [facility] Last Admin: 07/04/16 09:46 Dose: 25 mg Mirtazapine (Remeron -) 7.5 mg PO HS [facility] Last Admin: 07/03/16 21:33 Dose: 7.5 mg Multivitamins/Minerals/Vitamin C (Tab-A-Vit -) 1 tab PO DAILY [facility] Last Admin: 07/04/16 09:46 Dose: 1 tab Nystatin/Triamcinolone Acetonide (Mycolog Ii Cream -) 1 applic TP BID [facility] Last Admin: 07/04/16 09:47 Dose: 1 applic Ondansetron HCl (Zofran Injection) 4 mg IVPB Q6H PRN PRN Reason: NAUSEA Potassium Phos/Sodium Phos (Phos-Nak Packet -) 1 packet PO DAILY [facility] Last Admin: 07/04/16 09:47 Dose: 1 packet - Objective Vital Signs: Vital Signs Temperature 97.3 F L 07/04/16 07:10 Pulse Rate 97 H 07/04/16 09:47 Respiratory Rate 18 07/04/16 07:10 Blood Pressure 110/65 07/04/16 07:10 O2 Sat by Pulse Oximetry (%) 92 L 07/03/16 21:00 Constitutional: Yes: Well Nourished, No Distress Eyes: Yes: WNL, Conjunctiva Clear HENT: Yes: WNL, Atraumatic Neck: Yes: WNL, Supple Cardiovascular: Yes: Regular Rate and Rhythm, S1, S2 Respiratory: Yes: WNL, Regular, CTA Bilaterally Gastrointestinal: Yes: WNL, Normal Bowel Sounds, Soft. No: Tenderness, Epigastrium Labs: CBC, BMP 07/03/16 07:00 07/04/16 06:30 INR, PTT INR 1.73 (0.82-1.09) H 06/27/16 10:15 Problem List - Problems (1) Pelvic fluid collection Code(s): R18.8 - OTHER ASCITES (2) Septic shock Code(s): A41.9 - SEPSIS, UNSPECIFIED ORGANISM R65.21 - SEVERE SEPSIS WITH SEPTIC SHOCK Assessment/Plan Microbiology 06/15/16 15:45 Peritoneal Fluid Gram Stain - Final 06/15/16 15:45 Peritoneal Fluid Anaerobic Culture - Final Prevotella [facility]anin[facility] Laboratory Tests 06/15/16 06/23/16 06/25/16 05:00 05:00 06:00 WBC Hgb Hct Plt Count ESR 123 H BUN Creatinine Total Bilirubin AST Alkaline Phosphatase C-Reactive Protein 17.5 H D 8.5 H D 07/03/16 07/03/16 07/04/16 07:00 07:00 06:30 WBC 10.9 H Hgb 9.3 L D Hct 28.5 L Plt Count 462 H D ESR BUN 17 D Creatinine 0.6 D Total Bilirubin 0.3 D AST 14 L Alkaline Phosphatase 50 C-Reactive Protein Assessment Pelvic abscess still draining pus but not acutely ill CRP is down from admission Plan LIttle more to be gained by IV antibiotics ( ? oral antibiotics) Switch to po therapy oral metronidazole Watch for signs of neuropathy with emt intermediate flagyl [place] [facility]
--- NOTE | 2016-07-04 11:39 | EKG ---
Test Reason : Blood Pressure : / mmHG Vent. Rate : 114 BPM Atrial Rate : 114 BPM P-R Int : 126 ms QRS Dur : 086 ms QT Int : 340 ms P-R-T Axes : 064 052 086 degrees QTc Int : 468 ms SINUS TACHYCARDIA PREMATURE ATRIAL COMPLEXES BORDERLINE ECG WHEN COMPARED WITH ECG OF 15-JUN-2016 02:00, VENT. RATE HAS INCREASED BY 46 BPM NONSPECIFIC T WAVE ABNORMALITY NO LONGER EVIDENT IN ANTERIOR LEADS PREMATURE ATRIAL COMPLEXES NOW SEEN Confirmed by CELE MONET MD ([id number]) on 07/04/2016 11:38:49 AM Referred By: Cece QUIROGA Confirmed By:CELE MONET MD
[2016-07-04] MEDS: CEFTRIAXONE 2G/100 ML IVPB SCH (12:27)
--- NOTE | 2016-07-04 13:26 | PN ---
Progress Note, ARCADE GAME TECHNICIAN - Note Progress Note: Selected Entries 07/02/16 07/02/16 07/02/16 11:39 14:22 18:30 Breakfast 25% Lunch 50% Supper 25% 07/03/16 07/03/16 07/03/16 11:38 14:33 19:00 Breakfast 0 Lunch 25% Supper 25% 07/04/16 12:27 Breakfast 25% Lunch Supper Still with poor po acceptance. Diet upgraded with no difficulty observed with PO tolerance. Consider appetite stimulant?
--- NOTE | 2016-07-04 13:47 | PN ---
Progress Note, Physician History of Present Illness: Pt is an 80yr old woman with PMHx of HTN, HLD, a-fib (on Eliquis), dementia and anxiety. Pt was discharged on 05/31 to [facility] after admission for cellulitis. Pt now presents to the ER with CC of abdominal pain. In the ER pt with BUN/Cr 28/1.1 and WBC 17.4. Prelim read of CT of ab/pel concerning for possible acute process. Pt admitted to the ICU for further management. Upon assessment pt denies chest pain/sob/stomachache/headache/diarrhea. 115/62, HR 79 (sinus on tele) low 90s on NC RR 20s. - Past Medical History - Current Medication List Current Medications: Active Medications Acetaminophen (Tylenol -) 650 mg PO Q6H PRN PRN Reason: FEVER OR PAIN Last Admin: 06/25/16 16:42 Dose: 650 mg Albuterol/Ipratropium (Duoneb -) 1 amp NEB Q6H PRN PRN Reason: SHORTNESS OF BREATH Amino Acids (Prosource No Carb Liquid Pkt) 30 ml PO BID@0800,1730 [facility] Last Admin: 07/04/16 08:45 Dose: 30 ml Ascorbic Acid (Vitamin C -) 500 mg PO DAILY [facility] Last Admin: 07/04/16 09:46 Dose: 500 mg Clonazepam (Klonopin -) 0.5 mg PO TID [facility] Last Admin: 07/04/16 06:29 Dose: 0.5 mg Clonidine HCl (Catapres Tts Patch -) 0.1 mg TD Q7D@1000 [facility] Last Admin: 06/30/16 10:07 Dose: 0.1 mg Digoxin (Lanoxin -) 0.125 mg PO Q2D [facility] Last Admin: 07/04/16 09:47 Dose: 0.125 mg Ferrous Sulfate (Feosol -) 325 mg PO DAILY@0800 [facility] Last Admin: 07/04/16 08:45 Dose: 325 mg Folic Acid (Folic Acid -) 1 mg PO DAILY [facility] Last Admin: 07/04/16 09:46 Dose: 1 mg Guaifenesin (Robitussin Dm -) 10 ml PO Q8H PRN PRN Reason: COUGH Last Admin: 07/04/16 09:46 Dose: 10 ml Potassium Chloride 20 meq/ (Dextrose) 1,010 mls @ 35 mls/hr IVPB Q24H [facility] Last Admin: 07/03/16 17:53 Dose: 35 mls/hr Lactobacillus Acidophilus (Bacid -) 1 tab PO DAILY [facility] Last Admin: 07/04/16 09:47 Dose: 1 tab Megestrol Acetate (Megace Oral Suspension -) 400 mg PO DAILY [facility] Last Admin: 07/04/16 09:46 Dose: 400 mg Metoprolol Tartrate (Lopressor -) 25 mg PO BID [facility] Last Admin: 07/04/16 09:46 Dose: 25 mg Metronidazole (Flagyl -) 500 mg PO TID [facility] Mirtazapine (Remeron -) 7.5 mg PO HS [facility] Last Admin: 07/03/16 21:33 Dose: 7.5 mg Multivitamins/Minerals/Vitamin C (Tab-A-Vit -) 1 tab PO DAILY [facility] Last Admin: 07/04/16 09:46 Dose: 1 tab Nystatin/Triamcinolone Acetonide (Mycolog Ii Cream -) 1 applic TP BID [facility] Last Admin: 07/04/16 09:47 Dose: 1 applic Ondansetron HCl (Zofran Injection) 4 mg IVPB Q6H PRN PRN Reason: NAUSEA Potassium Phos/Sodium Phos (Phos-Nak Packet -) 1 packet PO DAILY [facility] Last Admin: 07/04/16 09:47 Dose: 1 packet - Objective Vital Signs: Vital Signs Temperature 98.7 F 07/04/16 10:00 Pulse Rate 96 H 07/04/16 10:00 Respiratory Rate 20 07/04/16 10:00 Blood Pressure 118/63 07/04/16 10:00 O2 Sat by Pulse Oximetry (%) 93 L 07/04/16 10:00 Eyes: Yes: WNL, Conjunctiva Clear, EOM Intact HENT: Yes: WNL, Atraumatic, Normocephalic Neck: Yes: WNL, Supple, Trachea Midline Cardiovascular: Yes: Pulse Irregular Respiratory: Yes: WNL, Regular, CTA Bilaterally Gastrointestinal: Yes: WNL, Normal Bowel Sounds Genitourinary: Yes: WNL Musculoskeletal: Yes: WNL Extremities: Yes: WNL Edema: No Integumentary: Yes: WNL Neurological: Yes: WNL, Alert, Oriented ...Motor Strength: WNL Psychiatric: Yes: WNL Labs: CBC, BMP 07/03/16 07:00 07/04/16 06:30 INR, PTT INR 1.73 (0.82-1.09) H 06/27/16 10:15 Problem List - Problems (1) Bowel perforation Code(s): K63.1 - PERFORATION OF INTESTINE (NONTRAUMATIC) (2) Diverticulitis of colon with perforation Code(s): K57.20 - DVTRCLI OF LG INT W PERFORATION AND ABSCESS W/O BLEEDING (3) Intra-abdominal abscess Code(s): K65.1 - PERITONEAL ABSCESS (4) Anxiety Code(s): F41.9 - ANXIETY DISORDER, UNSPECIFIED (5) Thibodeaux's cyst of knee Code(s): M71.20 - SYNOVIAL CYST OF POPLITEAL SPACE [THIBODEAUX], UNSPECIFIED KNEE Qualifiers: Qualified Code(s): M71.22 - Synovial cyst of popliteal space [Thibodeaux], left knee (6) Cellulitis Code(s): L03.90 - CELLULITIS, UNSPECIFIED (7) Contusion of foot Code(s): S90.30XA - CONTUSION OF UNSPECIFIED FOOT, INITIAL ENCOUNTER (8) Cystitis Code(s): N30.90 - CYSTITIS, UNSPECIFIED WITHOUT HEMATURIA (9) Dehydration Code(s): E86.0 - DEHYDRATION (10) Fever Code(s): R50.9 - FEVER, UNSPECIFIED (11) Gait difficulty Code(s): R26.9 - UNSPECIFIED ABNORMALITIES OF GAIT AND MOBILITY (12) Generalized weakness Code(s): R53.1 - WEAKNESS (13) HTN (hypertension) Code(s): I10 - ESSENTIAL (PRIMARY) HYPERTENSION Qualifiers: Qualified Code(s): I10 - Essential (primary) hypertension (14) Hyperlipidemia Code(s): E78.5 - HYPERLIPIDEMIA, UNSPECIFIED Qualifiers: Qualified Code(s): E78.0 - Pure hypercholesterolemia (15) Pain Code(s): R52 - PAIN, UNSPECIFIED (16) Rapid atrial fibrillation Code(s): I48.91 - UNSPECIFIED ATRIAL FIBRILLATION (17) Renal insufficiency Code(s): N28.9 - DISORDER OF KIDNEY AND URETER, UNSPECIFIED (18) Sepsis Code(s): A41.9 - SEPSIS, UNSPECIFIED ORGANISM Qualifiers: Qualified Code(s): A41.51 - Sepsis due to Escherichia coli [E. coli] (19) UTI (urinary tract infection) Code(s): N39.0 - URINARY TRACT INFECTION, SITE NOT SPECIFIED Assessment/Plan (1) Afib Assessment/Plan: Decreased digoxin to 0.125 mg every other day (level 1.47-->now 0.6); keep level 0.5-1.0. Continue metoprolol. On Lovenox until PO anticoagulation restarted (consider NOAC). K and Mg WNL. Code(s): I48.91 - UNSPECIFIED ATRIAL FIBRILLATION (2) Intra-abdominal abscess Assessment/Plan: Drainage f/u assessment with surgeon. As discussed with Dr. Cordon (Bridge Instructor), pt is at high risk for hysterectomy; pt and family defer surgery presently. On antibiotics per ID. Code(s): K65.1 - PERITONEAL ABSCESS (3) Anxiety Code(s): F41.9 - ANXIETY DISORDER, UNSPECIFIED (4) HTN (hypertension) Code(s): I10 - ESSENTIAL (PRIMARY) HYPERTENSION Qualifiers: Qualified Code(s): I10 - Essential (primary) hypertension (5) Sepsis Assessment/Plan: on antibiotics; followed by ID. Maintain hydration (changes by gluing machine operator automatic noted). LVEF WNL by ECHO. Code(s): A41.9 - SEPSIS, UNSPECIFIED ORGANISM Qualifiers: Qualified Code(s): A41.51 - Sepsis due to Escherichia coli [E. coli] (6) Anemia Code(s): D64.9 - ANEMIA, UNSPECIFIED Qualifiers: Qualified Code(s): D63.8 - Anemia in other chronic diseases classified elsewhere (7) GI tract abscess Assessment/Plan: CT abdomen results relatively unchanged (large left air/fluid loculation; R>L pleural effusion). Code(s): K63.0 - ABSCESS OF INTESTINE (8) Hypokalemia Assessment/Plan: On electrolytes and fluids; normal Na, K and Mg (followed by gluing machine operator automatic). Code(s): E87.6 - HYPOKALEMIA
[2016-07-04] MEDS: metroNIDAZOLE 250 MG TABLET PO SCH ×2 (14:08→21:46)
--- NOTE | 2016-07-04 16:13 | PN ---
Progress Note, Physician History of Present Illness: Pt seen and examined at bedside. No new events. She still has poor PO intake. - Current Medication List Current Medications: Active Medications Acetaminophen (Tylenol -) 650 mg PO Q6H PRN PRN Reason: FEVER OR PAIN Last Admin: 06/25/16 16:42 Dose: 650 mg Albuterol/Ipratropium (Duoneb -) 1 amp NEB Q6H PRN PRN Reason: SHORTNESS OF BREATH Amino Acids (Prosource No Carb Liquid Pkt) 30 ml PO BID@0800,1730 [facility] Last Admin: 07/04/16 08:45 Dose: 30 ml Ascorbic Acid (Vitamin C -) 500 mg PO DAILY [facility] Last Admin: 07/04/16 09:46 Dose: 500 mg Clonazepam (Klonopin -) 0.5 mg PO TID [facility] Last Admin: 07/04/16 14:08 Dose: 0.5 mg Clonidine HCl (Catapres Tts Patch -) 0.1 mg TD Q7D@1000 [facility] Last Admin: 06/30/16 10:07 Dose: 0.1 mg Digoxin (Lanoxin -) 0.125 mg PO Q2D [facility] Last Admin: 07/04/16 09:47 Dose: 0.125 mg Ferrous Sulfate (Feosol -) 325 mg PO DAILY@0800 [facility] Last Admin: 07/04/16 08:45 Dose: 325 mg Folic Acid (Folic Acid -) 1 mg PO DAILY [facility] Last Admin: 07/04/16 09:46 Dose: 1 mg Guaifenesin (Robitussin Dm -) 10 ml PO Q8H PRN PRN Reason: COUGH Last Admin: 07/04/16 09:46 Dose: 10 ml Potassium Chloride 20 meq/ (Dextrose) 1,010 mls @ 35 mls/hr IVPB Q24H [facility] Last Admin: 07/03/16 17:53 Dose: 35 mls/hr Lactobacillus Acidophilus (Bacid -) 1 tab PO DAILY [facility] Last Admin: 07/04/16 09:47 Dose: 1 tab Megestrol Acetate (Megace Oral Suspension -) 400 mg PO DAILY [facility] Last Admin: 07/04/16 09:46 Dose: 400 mg Metoprolol Tartrate (Lopressor -) 25 mg PO BID [facility] Last Admin: 07/04/16 09:46 Dose: 25 mg Metronidazole (Flagyl -) 500 mg PO TID [facility] Last Admin: 07/04/16 14:08 Dose: 500 mg Mirtazapine (Remeron -) 7.5 mg PO HS [facility] Last Admin: 07/03/16 21:33 Dose: 7.5 mg Multivitamins/Minerals/Vitamin C (Tab-A-Vit -) 1 tab PO DAILY [facility] Last Admin: 07/04/16 09:46 Dose: 1 tab Nystatin/Triamcinolone Acetonide (Mycolog Ii Cream -) 1 applic TP BID [facility] Last Admin: 07/04/16 09:47 Dose: 1 applic Ondansetron HCl (Zofran Injection) 4 mg IVPB Q6H PRN PRN Reason: NAUSEA Potassium Phos/Sodium Phos (Phos-Nak Packet -) 1 packet PO DAILY [facility] Last Admin: 07/04/16 09:47 Dose: 1 packet - Objective Vital Signs: Vital Signs Temperature 99.1 F 07/04/16 15:12 Pulse Rate 77 07/04/16 15:12 Respiratory Rate 20 07/04/16 15:12 Blood Pressure 104/60 07/04/16 15:12 O2 Sat by Pulse Oximetry (%) 93 L 07/04/16 10:00 Constitutional: Yes: Calm Eyes: Yes: Conjunctiva Clear HENT: Yes: Atraumatic Neck: Yes: Supple Cardiovascular: Yes: S1, S2 Respiratory: Yes: CTA Bilaterally Gastrointestinal: Yes: Soft, Other (JES drain) Musculoskeletal: Yes: Muscle Weakness Edema: No Neurological: Yes: Confusion Psychiatric: Yes: Oriented Labs: CBC, BMP 07/03/16 07:00 07/04/16 06:30 INR, PTT INR 1.73 (0.82-1.09) H 06/27/16 10:15 Problem List - Problems (1) Afib Code(s): I48.91 - UNSPECIFIED ATRIAL FIBRILLATION (2) Anemia Code(s): D64.9 - ANEMIA, UNSPECIFIED Qualifiers: Qualified Code(s): D63.8 - Anemia in other chronic diseases classified elsewhere (3) Anxiety and depression Code(s): F41.9 - ANXIETY DISORDER, UNSPECIFIED F32.9 - MAJOR DEPRESSIVE DISORDER, SINGLE EPISODE, UNSPECIFIED (4) Dementia Code(s): F03.90 - UNSPECIFIED DEMENTIA WITHOUT BEHAVIORAL DISTURBANCE Assessment/Plan Current Medications Generic Name Dose Route Start Last Admin Trade Name Freq PRN Reason Stop Dose Admin Acetaminophen 650 mg 06/23/16 12:18 06/25/16 16:42 Tylenol - PO 650 mg Q6H PRN Administration FEVER OR PAIN Albuterol/Ipratropium 1 amp 06/30/16 11:33 Duoneb - NEB Q6H PRN SHORTNESS OF BREATH Amino Acids 30 ml 06/23/16 17:30 07/04/16 08:45 Prosource No Carb Liquid Pkt PO 30 ml BID@0800,1730 DANA Administration Ascorbic Acid 500 mg 06/24/16 10:00 07/04/16 09:46 Vitamin C - PO 500 mg DAILY DANA Administration Clonazepam 0.5 mg 06/23/16 14:00 07/04/16 14:08 Klonopin - PO 0.5 mg TID DANA Administration Clonidine HCl 0.1 mg 06/30/16 10:00 06/30/16 10:07 Catapres Tts Patch - TD 0.1 mg Q7D@1000 DANA Administration Digoxin 0.125 mg 06/24/16 10:00 07/04/16 09:47 Lanoxin - PO 0.125 mg Q2D DANA Administration Ferrous Sulfate 325 mg 06/24/16 08:00 07/04/16 08:45 Feosol - PO 325 mg DAILY@0800 DANA Administration Folic Acid 1 mg 06/24/16 10:00 07/04/16 09:46 Folic Acid - PO 1 mg DAILY DANA Administration Guaifenesin 10 ml 07/03/16 23:42 07/04/16 09:46 Robitussin Dm - PO 10 ml Q8H PRN Administration COUGH Potassium Chloride 20 meq/ 1,010 mls @ 35 mls/hr 07/03/16 17:38 07/03/16 17:53 Dextrose IVPB 35 mls/hr Q24H DANA Administration Lactobacillus Acidophilus 1 tab 06/24/16 10:00 07/04/16 09:47 Bacid - PO 1 tab DAILY DANA Administration Megestrol Acetate 400 mg 06/30/16 10:00 07/04/16 09:46 Megace Oral Suspension - PO 400 mg DAILY DANA Administration Metoprolol Tartrate 25 mg 06/23/16 22:00 07/04/16 09:46 Lopressor - PO 25 mg BID DANA Administration Metronidazole 500 mg 07/04/16 14:00 07/04/16 14:08 Flagyl - PO 500 mg TID DANA Administration Mirtazapine 7.5 mg 06/29/16 22:00 07/03/16 21:33 Remeron - PO 7.5 mg HS DANA Administration Multivitamins/Minerals/Vitamin C 1 tab 06/24/16 10:00 07/04/16 09:46 Tab-A-Vit - PO 1 tab DAILY DANA Administration Nystatin/Triamcinolone Acetonide 1 applic 07/01/16 22:00 07/04/16 09:47 Mycolog Ii Cream - TP 1 applic BID DANA Administration Ondansetron HCl 4 mg 06/23/16 12:18 Zofran Injection IVPB Q6H PRN NAUSEA Potassium Phos/Sodium Phos 1 packet 06/24/16 10:00 07/04/16 09:47 Phos-Nak Packet - PO 1 packet DAILY DANA Administration Impression 1. Hypernatremia 2. HTN 3. dementia 4. a-fib 5. intra-abdominal abscess 6. sepsis 7. pleural effusions 8. Hypokalemia Plan - sodium is stable - potassium is improved, remove potassium from fluids as its trending higher - monitor bmp - will follow pt - cont current meds - encourage PO intake Dr Eid
[2016-07-04] MEDS: DEXTROSE 5%-WATER - 1,000 ML IV SCH (16:33)
--- NOTE | 2016-07-04 16:53 | PN ---
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5 mg Clonidine HCl (Catapres Tts Patch -) 0.1 mg TD Q7D@1000 [facility] Last Admin: 06/30/16 10:07 Dose: 0.1 mg Digoxin (Lanoxin -) 0.125 mg PO Q2D [facility] Last Admin: 07/04/16 09:47 Dose: 0.125 mg Ferrous Sulfate (Feosol -) 325 mg PO DAILY@0800 [facility] Last Admin: 07/04/16 08:45 Dose: 325 mg Folic Acid (Folic Acid -) 1 mg PO DAILY [facility] Last Admin: 07/04/16 09:46 Dose: 1 mg Guaifenesin (Robitussin Dm -) 10 ml PO Q8H PRN PRN Reason: COUGH Last Admin: 07/04/16 09:46 Dose: 10 ml Dextrose (D5w -) 1,000 mls @ 30 mls/hr IV ASDIR [facility] Last Admin: 07/04/16 16:33 Dose: 30 mls/hr Lactobacillus Acidophilus (Bacid -) 1 tab PO DAILY [facility] Last Admin: 07/04/16 09:47 Dose: 1 tab Megestrol Acetate (Megace Oral Suspension -) 400 mg PO DAILY [facility] Last Admin: 07/04/16 09:46 Dose: 400 mg Metoprolol Tartrate (Lopressor -) 25 mg PO BID [facility] Last Admin: 07/04/16 09:46 Dose: 25 mg Metronidazole (Flagyl -) 500 mg PO TID [facility] Last Admin: 07/04/16 14:08 Dose: 500 mg Mirtazapine (Remeron -) 7.5 mg PO HS [facility] Last Admin: 07/03/16 21:33 Dose: 7.5 mg Multivitamins/Minerals/Vitamin C (Tab-A-Vit -) 1 tab PO DAILY [facility] Last Admin: 07/04/16 09:46 Dose: 1 tab Nystatin/Triamcinolone Acetonide (Mycolog Ii Cream -) 1 applic TP BID [facility] Last Admin: 07/04/16 09:47 Dose: 1 applic Ondansetron HCl (Zofran Injection) 4 mg IVPB Q6H PRN PRN Reason: NAUSEA Potassium Phos/Sodium Phos (Phos-Nak Packet -) 1 packet PO DAILY [facility] Last Admin: 07/04/16 09:47 Dose: 1 packet - Objective Vital Signs: Vital Signs Temperature 99.1 F 07/04/16 15:12 Pulse Rate 77 07/04/16 15:12 Respiratory Rate 20 07/04/16 15:12 Blood Pressure 104/60 07/04/16 15:12 O2 Sat by Pulse Oximetry (%) 93 L 07/04/16 10:00 Cardiovascular: Yes: WNL Respiratory: Yes: WNL Gastrointestinal: Yes: WNL Labs: CBC, BMP 07/03/16 07:00 07/04/16 06:30 INR, PTT INR 1.73 (0.82-1.09) H 06/27/16 10:15 Problem List - Problems (1) Anxiety Code(s): F41.9 - ANXIETY DISORDER, UNSPECIFIED (2) HTN (hypertension) Code(s): I10 - ESSENTIAL (PRIMARY) HYPERTENSION Qualifiers: Qualified Code(s): I10 - Essential (primary) hypertension (3) Hyperlipidemia Code(s): E78.5 - HYPERLIPIDEMIA, UNSPECIFIED Qualifiers: Qualified Code(s): E78.0 - Pure hypercholesterolemia (4) Rapid atrial fibrillation Code(s): I48.91 - UNSPECIFIED ATRIAL FIBRILLATION (5) Renal insufficiency Code(s): N28.9 - DISORDER OF KIDNEY AND URETER, UNSPECIFIED (6) Uterine abscess Code(s): N71.9 - INFLAMMATORY DISEASE OF UTERUS, UNSPECIFIED Assessment/Plan (1) Sepsis Assessment/Plan: IV ABX STOPPED APPRECIATE ID CONSULT MONITOR Code(s): A41.9 - SEPSIS, UNSPECIFIED ORGANISM Qualifiers: Qualified Code(s): A41.51 - Sepsis due to Escherichia coli [E. coli] (2) Uterine abscess Assessment/Plan: IR/STOCKROOM ATTENDANT FOLLOW ---ABX ID ON CASE Code(s): N71.9 - INFLAMMATORY DISEASE OF UTERUS, UNSPECIFIED (3) Anemia Assessment/Plan: MONITOR LABS Code(s): D64.9 - ANEMIA, UNSPECIFIED Qualifiers: Qualified Code(s): D63.8 - Anemia in other chronic diseases classified elsewhere [employer]
[2016-07-04] MEDS: MIRTAZAPINE 15 MG TABLET (FP) PO SCH (21:47)
[2016-07-05] MEDS: metroNIDAZOLE 250 MG TABLET PO SCH ×3 (06:21→22:27)
[2016-07-05] MEDS: clonazePAM 0.5 MG TABLET PO SCH ×3 (06:22→22:30)
[2016-07-05 07:55] LABS: BASOPHIL 0.5 % (0-2.0); MCH 28.4 pg (25.7-33.7); MCHC 32.7 g/dl (32.0-36.0); MEAN CELL VOLUME 86.9 fl (80-96); NEUTROPHILS 71.6 % (42.8-82.8); PLATELET COUNT 487 K/MM3 (134-434); RDW 15.2 % (11.6-15.6); WHITE BLOOD COUNT 9.6 K/mm3 (4.0-10.0)
[2016-07-05] MEDS: AMINO ACIDS/PROTEIN HYDROLYS 30 ML LIQUID.PKT PO SCH ×2 (08:29→17:07)
[2016-07-05] MEDS: FERROUS SO4 325 MG TABLET (FP) PO SCH (08:29)
[2016-07-05 09:06] LABS: CALCIUM 8.2 mg/dL (8.5-10.1); CREATININE 0.6 mg/dL (0.55-1.02)
[2016-07-05] MEDS: MEGESTROL ACETATE 400 MG/10 ML UNIT DOSE CUP PO SCH (09:24)
[2016-07-05] MEDS: NYSTATIN/TRIAMCINOLONE TOPICAL CREAM 15 GM TUBE TP SCH ×2 (09:25→22:31)
[2016-07-05] MEDS: LACTOBACILLUS ACIDOPHILUS 1 EACH TAB (FP) PO SCH (09:25)
[2016-07-05] MEDS: ASCORBIC ACID 500 MG TABLET (FP) PO SCH (09:25)
[2016-07-05] MEDS: METOPROLOL TARTRATE 25 MG TABLET (FP) PO SCH ×2 (09:25→22:30)
[2016-07-05] MEDS: NAPH,MB-DB/K PH,MBDB POWDER PACKET PO SCH (09:25)
[2016-07-05] MEDS: MULTIVITAMINS (DAILY MVI) TABLET (FP) PO SCH (09:25)
[2016-07-05] MEDS: FOLIC ACID 1 MG TABLET (FP) PO SCH (09:25)
--- NOTE | 2016-07-05 13:35 | PN ---
Progress Note, Physician History of Present Illness: Pt seen and examined at bedside. Her son is at bedside and care was discussed with him. - Current Medication List Current Medications: Active Medications Acetaminophen (Tylenol -) 650 mg PO Q6H PRN PRN Reason: FEVER OR PAIN Last Admin: 06/25/16 16:42 Dose: 650 mg Amino Acids (Prosource No Carb Liquid Pkt) 30 ml PO BID@0800,1730 [facility] Last Admin: 07/05/16 08:29 Dose: 30 ml Ascorbic Acid (Vitamin C -) 500 mg PO DAILY [facility] Last Admin: 07/05/16 09:25 Dose: 500 mg Clonazepam (Klonopin -) 0.5 mg PO TID [facility] Last Admin: 07/05/16 06:22 Dose: 0.5 mg Clonidine HCl (Catapres Tts Patch -) 0.1 mg TD Q7D@1000 [facility] Last Admin: 06/30/16 10:07 Dose: 0.1 mg Digoxin (Lanoxin -) 0.125 mg PO Q2D [facility] Last Admin: 07/04/16 09:47 Dose: 0.125 mg Ferrous Sulfate (Feosol -) 325 mg PO DAILY@0800 [facility] Last Admin: 07/05/16 08:29 Dose: 325 mg Folic Acid (Folic Acid -) 1 mg PO DAILY [facility] Last Admin: 07/05/16 09:25 Dose: 1 mg Guaifenesin (Robitussin Dm -) 10 ml PO Q8H PRN PRN Reason: COUGH Last Admin: 07/04/16 09:46 Dose: 10 ml Dextrose (D5w -) 1,000 mls @ 30 mls/hr IV ASDIR [facility] Last Admin: 07/04/16 16:33 Dose: 30 mls/hr Lactobacillus Acidophilus (Bacid -) 1 tab PO DAILY [facility] Last Admin: 07/05/16 09:25 Dose: 1 tab Megestrol Acetate (Megace Oral Suspension -) 400 mg PO DAILY [facility] Last Admin: 07/05/16 09:24 Dose: 400 mg Metoprolol Tartrate (Lopressor -) 25 mg PO BID [facility] Last Admin: 07/05/16 09:25 Dose: 25 mg Metronidazole (Flagyl -) 500 mg PO TID [facility] Last Admin: 07/05/16 06:21 Dose: 500 mg Mirtazapine (Remeron -) 7.5 mg PO HS [facility] Last Admin: 07/04/16 21:47 Dose: 7.5 mg Multivitamins/Minerals/Vitamin C (Tab-A-Vit -) 1 tab PO DAILY [facility] Last Admin: 07/05/16 09:25 Dose: 1 tab Nystatin/Triamcinolone Acetonide (Mycolog Ii Cream -) 1 applic TP BID [facility] Last Admin: 07/05/16 09:25 Dose: 1 applic Ondansetron HCl (Zofran Injection) 4 mg IVPB Q6H PRN PRN Reason: NAUSEA Potassium Phos/Sodium Phos (Phos-Nak Packet -) 1 packet PO DAILY [facility] Last Admin: 07/05/16 09:25 Dose: 1 packet - Objective Vital Signs: Vital Signs Temperature 98.2 F 07/05/16 10:00 Pulse Rate 108 H 07/05/16 10:00 Respiratory Rate 18 07/05/16 10:00 Blood Pressure 136/78 07/05/16 10:00 O2 Sat by Pulse Oximetry (%) 99 07/04/16 21:00 Constitutional: Yes: Calm Eyes: Yes: Conjunctiva Clear HENT: Yes: Atraumatic Cardiovascular: Yes: S1, S2 Respiratory: Yes: CTA Bilaterally Gastrointestinal: Yes: Soft Genitourinary: Yes: Incontinence Musculoskeletal: Yes: Muscle Weakness Edema: No Neurological: Yes: Confusion Labs: CBC, BMP 07/05/16 06:45 07/05/16 06:45 INR, PTT INR 1.73 (0.82-1.09) H 06/27/16 10:15 Problem List - Problems (1) Afib Code(s): I48.91 - UNSPECIFIED ATRIAL FIBRILLATION (2) Anemia Code(s): D64.9 - ANEMIA, UNSPECIFIED Qualifiers: Qualified Code(s): D63.8 - Anemia in other chronic diseases classified elsewhere (3) Anxiety and depression Code(s): F41.9 - ANXIETY DISORDER, UNSPECIFIED F32.9 - MAJOR DEPRESSIVE DISORDER, SINGLE EPISODE, UNSPECIFIED (4) Dementia Code(s): F03.90 - UNSPECIFIED DEMENTIA WITHOUT BEHAVIORAL DISTURBANCE Assessment/Plan Current Medications Generic Name Dose Route Start Last Admin Trade Name Freq PRN Reason Stop Dose Admin Acetaminophen 650 mg 06/23/16 12:18 06/25/16 16:42 Tylenol - PO 650 mg Q6H PRN Administration FEVER OR PAIN Amino Acids 30 ml 06/23/16 17:30 07/05/16 08:29 Prosource No Carb Liquid Pkt PO 30 ml BID@0800,1730 DANA Administration Ascorbic Acid 500 mg 06/24/16 10:00 07/05/16 09:25 Vitamin C - PO 500 mg DAILY DANA Administration Clonazepam 0.5 mg 06/23/16 14:00 07/05/16 06:22 Klonopin - PO 0.5 mg TID DANA Administration Clonidine HCl 0.1 mg 06/30/16 10:00 06/30/16 10:07 Catapres Tts Patch - TD 0.1 mg Q7D@1000 DANA Administration Digoxin 0.125 mg 06/24/16 10:00 07/04/16 09:47 Lanoxin - PO 0.125 mg Q2D DANA Administration Ferrous Sulfate 325 mg 06/24/16 08:00 07/05/16 08:29 Feosol - PO 325 mg DAILY@0800 DANA Administration Folic Acid 1 mg 06/24/16 10:00 07/05/16 09:25 Folic Acid - PO 1 mg DAILY DANA Administration Guaifenesin 10 ml 07/03/16 23:42 07/04/16 09:46 Robitussin Dm - PO 10 ml Q8H PRN Administration COUGH Dextrose 1,000 mls @ 30 mls/hr 07/04/16 16:13 07/04/16 16:33 D5w - IV 30 mls/hr ASDIR DANA Administration Lactobacillus Acidophilus 1 tab 06/24/16 10:00 07/05/16 09:25 Bacid - PO 1 tab DAILY DANA Administration Megestrol Acetate 400 mg 06/30/16 10:00 07/05/16 09:24 Megace Oral Suspension - PO 400 mg DAILY DANA Administration Metoprolol Tartrate 25 mg 06/23/16 22:00 07/05/16 09:25 Lopressor - PO 25 mg BID DANA Administration Metronidazole 500 mg 07/04/16 14:00 07/05/16 06:21 Flagyl - PO 500 mg TID DANA Administration Mirtazapine 7.5 mg 06/29/16 22:00 07/04/16 21:47 Remeron - PO 7.5 mg HS DANA Administration Multivitamins/Minerals/Vitamin C 1 tab 06/24/16 10:00 07/05/16 09:25 Tab-A-Vit - PO 1 tab DAILY DANA Administration Nystatin/Triamcinolone Acetonide 1 applic 07/01/16 22:00 07/05/16 09:25 Mycolog Ii Cream - TP 1 applic BID DANA Administration Ondansetron HCl 4 mg 06/23/16 12:18 Zofran Injection IVPB Q6H PRN NAUSEA Potassium Phos/Sodium Phos 1 packet 06/24/16 10:00 07/05/16 09:25 Phos-Nak Packet - PO 1 packet DAILY DANA Administration Impression 1. Hypernatremia 2. HTN 3. dementia 4. a-fib 5. intra-abdominal abscess 6. sepsis 7. pleural effusions 8. Hypokalemia Plan - electrolytes are stable - labs reviewed - cont gently hydration - stop fluids once pt is tolerating diet - monitor bmp - will follow pt PRN - cont current meds - encourage PO intake Dr Eid
--- NOTE | 2016-07-05 14:30 | DS ---
Physical Examination Vital Signs: Vital Signs Temperature 98.2 F 07/05/16 10:00 Pulse Rate 108 H 07/05/16 10:00 Respiratory Rate 18 07/05/16 10:00 Blood Pressure 136/78 07/05/16 10:00 O2 Sat by Pulse Oximetry (%) 99 07/04/16 21:00 Constitutional: Yes: Mild Distress Eyes: Yes: WNL HENT: Yes: WNL Neck: Yes: WNL Cardiovascular: Yes: Pulse Irregular Respiratory: Yes: Rhonchi Gastrointestinal: Yes: Tenderness Renal/: Yes: Other Musculoskeletal: Yes: WNL Extremities: Yes: WNL Edema: No Peripheral Pulses WNL: Yes Integumentary: Yes: WNL Wound/Incision: Yes: Draining (uterine eagle drain with white milky discharge), Other Neurological: Yes: Pre-Existing Deficit ...Motor Strength: LLE, RLE Psychiatric: Yes: Agitated Labs: CBC, BMP 07/05/16 06:45 07/05/16 06:45 Discharge Summary Reason For Visit: DIVERTICULITIS OF COLON W/PERFORATION Current Active Problems Afib (Acute) Anemia (Acute) Anxiety and depression (Acute) Bowel perforation (Acute) Dementia (Acute) GI tract abscess (Acute) Hypokalemia (Acute) Intra-abdominal abscess (Acute) Leukocytosis (Acute) PID (acute pelvic inflammatory disease) (Acute) Pelvic fluid collection (Acute) Septic shock (Acute) Uterine abscess (Acute) Procedures: Principal: laproscopic surgery, uterine abscess, eagle drain placed, ct scans and labs done. Hospital Course: see procedures, poor appetite will need calorie count constantly, weekly labs Condition: Fair - Instructions Diet, Activity, Other Instructions: soft thickened liquids Referrals: Vanessa Oneal MD [Primary Care Provider] - Disposition: ALF FACILITY - Home Medications Comprehensive Discharge Medication List: Ambulatory Orders Digoxin [Lanoxin -] 0.125 mg PO DAILY tablet 01/16/15 Magnesium Oxide [Mag-Ox -] 400 mg PO BID tablet 01/16/15 Metoprolol Succinate [Toprol XL -] 50 mg PO DAILY tab.sr.24h 01/16/15 Multivitamins [Multivit ([facility] Formulary)] 1 tab PO DAILY tab 01/16/15 Apixaban [Eliquis] 2.5 mg PO BID 05/28/16 Citalopram Hydrobromide [Celexa -] 10 mg PO DAILY 05/28/16 Clonazepam [Klonopin -] 0.5 mg PO TID 05/28/16 Clonidine HCl 0.1 mg PO BID 05/28/16 Acetaminophen [Tylenol .Regular Strength -] 650 mg PO Q6H PRN #0 tablet Rosuvastatin [Crestor -] 5 mg PO HS tablet 06/01/16 Oxycodone HCl [Roxicodone -] 5 mg PO ONCE 06/15/16
[2016-07-05] MEDS: DEXTROSE 5%-WATER - 1,000 ML IV SCH (17:07)
--- NOTE | 2016-07-05 22:02 | PN ---
Progress Note, Physician Chief Complaint: Pt denies chest pain or dyspnea; still with poor appetite. History of Present Illness: 80yr old white woman with Hx HTN, ?dementia, presented to ED via EMS from [facility] with c/o abd pain. According to patient son, patient has been having abd pain all day starting at 6pm, pain progressed at 1015pm- patient given oxycontin with no relief- patient sent to this ED for evaluation. Son inform process description writer that patient recently admitted May 27 for "blood infection" and d/c to [facility] for rehab but has not gotten out of bed per son. Patient also has not had a BM today. Denies any other complaints at this time. - Current Medication List Current Medications: Active Medications Acetaminophen (Tylenol -) 650 mg PO Q6H PRN PRN Reason: FEVER OR PAIN Last Admin: 06/25/16 16:42 Dose: 650 mg Amino Acids (Prosource No Carb Liquid Pkt) 30 ml PO BID@0800,1730 [facility] Last Admin: 07/05/16 17:07 Dose: 30 ml Ascorbic Acid (Vitamin C -) 500 mg PO DAILY [facility] Last Admin: 07/05/16 09:25 Dose: 500 mg Clonazepam (Klonopin -) 0.5 mg PO TID [facility] Clonidine HCl (Catapres Tts Patch -) 0.1 mg TD Q7D@1000 [facility] Last Admin: 06/30/16 10:07 Dose: 0.1 mg Digoxin (Lanoxin -) 0.125 mg PO Q2D [facility] Last Admin: 07/04/16 09:47 Dose: 0.125 mg Ferrous Sulfate (Feosol -) 325 mg PO DAILY@0800 [facility] Last Admin: 07/05/16 08:29 Dose: 325 mg Folic Acid (Folic Acid -) 1 mg PO DAILY [facility] Last Admin: 07/05/16 09:25 Dose: 1 mg Guaifenesin (Robitussin Dm -) 10 ml PO Q8H PRN PRN Reason: COUGH Last Admin: 07/04/16 09:46 Dose: 10 ml Dextrose (D5w -) 1,000 mls @ 30 mls/hr IV ASDIR [facility] Last Admin: 07/05/16 17:07 Dose: 30 mls/hr Lactobacillus Acidophilus (Bacid -) 1 tab PO DAILY [facility] Last Admin: 07/05/16 09:25 Dose: 1 tab Megestrol Acetate (Megace Oral Suspension -) 400 mg PO DAILY [facility] Last Admin: 07/05/16 09:24 Dose: 400 mg Metoprolol Tartrate (Lopressor -) 25 mg PO BID [facility] Last Admin: 07/05/16 09:25 Dose: 25 mg Metronidazole (Flagyl -) 500 mg PO TID [facility] Last Admin: 07/05/16 13:51 Dose: 500 mg Mirtazapine (Remeron -) 7.5 mg PO HS [facility] Last Admin: 07/04/16 21:47 Dose: 7.5 mg Multivitamins/Minerals/Vitamin C (Tab-A-Vit -) 1 tab PO DAILY [facility] Last Admin: 07/05/16 09:25 Dose: 1 tab Nystatin/Triamcinolone Acetonide (Mycolog Ii Cream -) 1 applic TP BID [facility] Last Admin: 07/05/16 09:25 Dose: 1 applic Ondansetron HCl (Zofran Injection) 4 mg IVPB Q6H PRN PRN Reason: NAUSEA Potassium Phos/Sodium Phos (Phos-Nak Packet -) 1 packet PO DAILY [facility] Last Admin: 07/05/16 09:25 Dose: 1 packet - Objective Vital Signs: Vital Signs Temperature 98.2 F 07/05/16 18:30 Pulse Rate 77 07/05/16 18:30 Respiratory Rate 18 07/05/16 18:30 Blood Pressure 117/61 07/05/16 18:30 O2 Sat by Pulse Oximetry (%) 99 07/04/16 21:00 Constitutional: Yes: Thin Eyes: Yes: WNL HENT: Yes: Other Neck: Yes: Supple Cardiovascular: Yes: S1, S2 Respiratory: Yes: Regular Gastrointestinal: Yes: Soft ...Rectal Exam: Yes: Deferred Genitourinary: No: Anuria Musculoskeletal: Yes: Muscle Weakness Extremities: Yes: Cool Edema: No Peripheral Pulses WNL: No Peripheral Pulses: Left Doralis Pedis: 1+, Right Dorsalis Pedis: 1+ Neurological: Yes: Confusion Psychiatric: Yes: Other Labs: CBC, BMP 07/05/16 06:45 07/05/16 06:45 INR, PTT INR 1.73 (0.82-1.09) H 06/27/16 10:15 Current Medications Acetaminophen (Tylenol -) 650 mg PO Q6H PRN PRN Reason: FEVER OR PAIN Last Admin: 06/25/16 16:42 Dose: 650 mg Amino Acids (Prosource No Carb Liquid Pkt) 30 ml PO BID@0800,1730 [facility] Last Admin: 07/05/16 17:07 Dose: 30 ml Ascorbic Acid (Vitamin C -) 500 mg PO DAILY [facility] Last Admin: 07/05/16 09:25 Dose: 500 mg Clonazepam (Klonopin -) 0.5 mg PO TID [facility] Clonidine HCl (Catapres Tts Patch -) 0.1 mg TD Q7D@1000 [facility] Last Admin: 06/30/16 10:07 Dose: 0.1 mg Digoxin (Lanoxin -) 0.125 mg PO Q2D [facility] Last Admin: 07/04/16 09:47 Dose: 0.125 mg Ferrous Sulfate (Feosol -) 325 mg PO DAILY@0800 [facility] Last Admin: 07/05/16 08:29 Dose: 325 mg Folic Acid (Folic Acid -) 1 mg PO DAILY [facility] Last Admin: 07/05/16 09:25 Dose: 1 mg Guaifenesin (Robitussin Dm -) 10 ml PO Q8H PRN PRN Reason: COUGH Last Admin: 07/04/16 09:46 Dose: 10 ml Dextrose (D5w -) 1,000 mls @ 30 mls/hr IV ASDIR [facility] Last Admin: 07/05/16 17:07 Dose: 30 mls/hr Lactobacillus Acidophilus (Bacid -) 1 tab PO DAILY [facility] Last Admin: 07/05/16 09:25 Dose: 1 tab Megestrol Acetate (Megace Oral Suspension -) 400 mg PO DAILY [facility] Last Admin: 07/05/16 09:24 Dose: 400 mg Metoprolol Tartrate (Lopressor -) 25 mg PO BID [facility] Last Admin: 07/05/16 09:25 Dose: 25 mg Metronidazole (Flagyl -) 500 mg PO TID [facility] Last Admin: 07/05/16 13:51 Dose: 500 mg Mirtazapine (Remeron -) 7.5 mg PO HS [facility] Last Admin: 07/04/16 21:47 Dose: 7.5 mg Multivitamins/Minerals/Vitamin C (Tab-A-Vit -) 1 tab PO DAILY [facility] Last Admin: 07/05/16 09:25 Dose: 1 tab Nystatin/Triamcinolone Acetonide (Mycolog Ii Cream -) 1 applic TP BID [facility] Last Admin: 07/05/16 09:25 Dose: 1 applic Ondansetron HCl (Zofran Injection) 4 mg IVPB Q6H PRN PRN Reason: NAUSEA Potassium Phos/Sodium Phos (Phos-Nak Packet -) 1 packet PO DAILY [facility] Last Admin: 07/05/16 09:25 Dose: 1 packet Abnormal Lab Results 07/05/16 07/05/16 07/05/16 06:45 06:45 06:45 RBC 3.06 L Hgb 8.7 L Hct 26.6 L Plt Count 487 H MPV 7.0 L ESR > 130 H Random Glucose 109 H D Calcium 8.2 L Problem List - Problems (1) Afib Assessment/Plan: Decreased digoxin to 0.125 mg every other day (level 1.47-->now 0.6); keep level 0.5-1.0. Continue metoprolol. On Lovenox until PO anticoagulation restarted (consider NOAC). K and Mg WNL. Code(s): I48.91 - UNSPECIFIED ATRIAL FIBRILLATION (2) Intra-abdominal abscess Assessment/Plan: Drainage f/u assessment with surgeon. As discussed with Dr. Cordon (Optical Worker), pt is at high risk for hysterectomy; pt and family defer surgery presently. On antibiotics per ID. Code(s): K65.1 - PERITONEAL ABSCESS (3) Anxiety Code(s): F41.9 - ANXIETY DISORDER, UNSPECIFIED (4) HTN (hypertension) Assessment/Plan: On metoprolol, and clonidine (patch) restarted. Risk of rebound hypertension when abruptly stopping clonidine (exacerbated when also on metoprolol). Code(s): I10 - ESSENTIAL (PRIMARY) HYPERTENSION Qualifiers: Qualified Code(s): I10 - Essential (primary) hypertension (5) Sepsis Assessment/Plan: on antibiotics; followed by ID. Maintain hydration (changes by bumper operator noted). LVEF WNL by ECHO. Code(s): A41.9 - SEPSIS, UNSPECIFIED ORGANISM Qualifiers: Qualified Code(s): A41.51 - Sepsis due to Escherichia coli [E. coli] (6) Anemia Code(s): D64.9 - ANEMIA, UNSPECIFIED Qualifiers: Qualified Code(s): D63.8 - Anemia in other chronic diseases classified elsewhere (7) GI tract abscess Assessment/Plan: CT abdomen results relatively unchanged (large left air/fluid loculation; R>L pleural effusion). Code(s): K63.0 - ABSCESS OF INTESTINE (8) Hypokalemia Assessment/Plan: On electrolytes and fluids; normal Na, K and Mg (followed by bumper operator). Code(s): E87.6 - HYPOKALEMIA
[2016-07-05] MEDS: MIRTAZAPINE 15 MG TABLET (FP) PO SCH (22:31)
[2016-07-06] MEDS: metroNIDAZOLE 250 MG TABLET PO SCH ×2 (05:49→14:20)
[2016-07-06] MEDS: clonazePAM 0.5 MG TABLET PO SCH (05:49)
[2016-07-06] MEDS: guaiFENesin/D-METHORPHAN HB 10 ML UNIT-DOSE CUPS PO PRN (05:49)
[2016-07-06] MEDS ORDERED: PT OWN MED DRAWER 7, Y5N ONE (09:01)
[2016-07-06] MEDS: FERROUS SO4 325 MG TABLET (FP) PO SCH (09:46)
[2016-07-06] MEDS: MULTIVITAMINS (DAILY MVI) TABLET (FP) PO SCH (09:47)
[2016-07-06] MEDS: AMINO ACIDS/PROTEIN HYDROLYS 30 ML LIQUID.PKT PO SCH ×2 (09:47→17:44)
[2016-07-06] MEDS: FOLIC ACID 1 MG TABLET (FP) PO SCH (09:47)
[2016-07-06] MEDS: LACTOBACILLUS ACIDOPHILUS 1 EACH TAB (FP) PO SCH (09:47)
[2016-07-06] MEDS: DIGOXIN 0.125 MG TABLET (FP) PO SCH (09:48)
[2016-07-06] MEDS: METOPROLOL TARTRATE 25 MG TABLET (FP) PO SCH (09:48)
[2016-07-06] MEDS: NYSTATIN/TRIAMCINOLONE TOPICAL CREAM 15 GM TUBE TP SCH (09:48)
[2016-07-06] MEDS: MEGESTROL ACETATE 400 MG/10 ML UNIT DOSE CUP PO SCH (09:48)
[2016-07-06] MEDS: ASCORBIC ACID 500 MG TABLET (FP) PO SCH (09:49)
[2016-07-06] MEDS: NAPH,MB-DB/K PH,MBDB POWDER PACKET PO SCH (09:49)
--- NOTE | 2016-07-06 10:18 | PN ---
Progress Note, Physician Chief Complaint: AROUSABLE, POOR APPETITE TODAY WILL TRY AGAIN WITH NURSE LATER TODAY - Current Medication List Current Medications: Active Medications Acetaminophen (Tylenol -) 650 mg PO Q6H PRN PRN Reason: FEVER OR PAIN Last Admin: 06/25/16 16:42 Dose: 650 mg Amino Acids (Prosource No Carb Liquid Pkt) 30 ml PO BID@0800,1730 [facility] Last Admin: 07/06/16 09:47 Dose: 30 ml Ascorbic Acid (Vitamin C -) 500 mg PO DAILY [facility] Last Admin: 07/06/16 09:49 Dose: 500 mg Clonazepam (Klonopin -) 0.5 mg PO TID [facility] Last Admin: 07/06/16 05:49 Dose: 0.5 mg Clonidine HCl (Catapres Tts Patch -) 0.1 mg TD Q7D@1000 [facility] Last Admin: 06/30/16 10:07 Dose: 0.1 mg Digoxin (Lanoxin -) 0.125 mg PO Q2D [facility] Last Admin: 07/06/16 09:48 Dose: 0.125 mg Ferrous Sulfate (Feosol -) 325 mg PO DAILY@0800 [facility] Last Admin: 07/06/16 09:46 Dose: 325 mg Folic Acid (Folic Acid -) 1 mg PO DAILY [facility] Last Admin: 07/06/16 09:47 Dose: 1 mg Guaifenesin (Robitussin Dm -) 10 ml PO Q8H PRN PRN Reason: COUGH Last Admin: 07/06/16 05:49 Dose: 10 ml Dextrose (D5w -) 1,000 mls @ 30 mls/hr IV ASDIR [facility] Last Admin: 07/05/16 17:07 Dose: 30 mls/hr Lactobacillus Acidophilus (Bacid -) 1 tab PO DAILY [facility] Last Admin: 07/06/16 09:47 Dose: 1 tab Megestrol Acetate (Megace Oral Suspension -) 400 mg PO DAILY [facility] Last Admin: 07/06/16 09:48 Dose: 400 mg Metoprolol Tartrate (Lopressor -) 25 mg PO BID [facility] Last Admin: 07/06/16 09:48 Dose: Not Given Metronidazole (Flagyl -) 500 mg PO TID [facility] Last Admin: 07/06/16 05:49 Dose: 500 mg Mirtazapine (Remeron -) 7.5 mg PO HS [facility] Last Admin: 07/05/16 22:31 Dose: 7.5 mg Multivitamins/Minerals/Vitamin C (Tab-A-Vit -) 1 tab PO DAILY [facility] Last Admin: 07/06/16 09:47 Dose: 1 tab Nystatin/Triamcinolone Acetonide (Mycolog Ii Cream -) 1 applic TP BID [facility] Last Admin: 07/06/16 09:48 Dose: 1 applic Ondansetron HCl (Zofran Injection) 4 mg IVPB Q6H PRN PRN Reason: NAUSEA Potassium Phos/Sodium Phos (Phos-Nak Packet -) 1 packet PO DAILY [facility] Last Admin: 07/06/16 09:49 Dose: 1 packet - Objective Vital Signs: Vital Signs Temperature 97.6 F 07/06/16 06:00 Pulse Rate 92 H 07/06/16 09:48 Respiratory Rate 18 07/06/16 06:00 Blood Pressure 133/93 07/06/16 06:00 O2 Sat by Pulse Oximetry (%) 99 07/04/16 21:00 Constitutional: Yes: Mild Distress Eyes: Yes: WNL HENT: Yes: WNL Neck: Yes: WNL Cardiovascular: Yes: Pulse Irregular Respiratory: Yes: WNL Gastrointestinal: Yes: WNL Musculoskeletal: Yes: Muscle Weakness Extremities: Yes: WNL Edema: No Integumentary: Yes: Venous Stasis Changes Wound/Incision: Yes: Dressing Dry and Intact Neurological: Yes: Pre-Existing Deficit ...Motor Strength: LLE, RLE Psychiatric: Yes: Agitated Labs: CBC, BMP 07/05/16 06:45 07/05/16 06:45 INR, PTT INR 1.73 (0.82-1.09) H 06/27/16 10:15 Problem List - Problems (1) Anxiety Code(s): F41.9 - ANXIETY DISORDER, UNSPECIFIED (2) HTN (hypertension) Code(s): I10 - ESSENTIAL (PRIMARY) HYPERTENSION Qualifiers: Qualified Code(s): I10 - Essential (primary) hypertension (3) Hyperlipidemia Code(s): E78.5 - HYPERLIPIDEMIA, UNSPECIFIED Qualifiers: Qualified Code(s): E78.0 - Pure hypercholesterolemia (4) Rapid atrial fibrillation Code(s): I48.91 - UNSPECIFIED ATRIAL FIBRILLATION (5) Renal insufficiency Code(s): N28.9 - DISORDER OF KIDNEY AND URETER, UNSPECIFIED (6) Uterine abscess Code(s): N71.9 - INFLAMMATORY DISEASE OF UTERUS, UNSPECIFIED (7) Anxiety and depression Code(s): F41.9 - ANXIETY DISORDER, UNSPECIFIED F32.9 - MAJOR DEPRESSIVE DISORDER, SINGLE EPISODE, UNSPECIFIED Assessment/Plan WAITING FOR INTERVENTIONAL RADIOLOGY TO DECIDE WHAT TO DO WITH UTERINE DRAIN. I WILL SEND TO [facility] WITH DRAIN AND RETURN PATIENT FOR REMOVAL OR CHANGE OF TUBE, ASA 81MG DAILY ONLY FOR AFIV FOR NOW WILL DISCUSS WITH CARDIOLOGY ABOUT ELIQUIS. APPETITE SLOWLY IMPROVING WITH REMERON AND MEGACE FOR STIMULANT. MONITOR CALORIE COUNT OUTPATIENT. I CALLED MIYA MELGOZA HER SON AND I LEFT A VOICEMAIL MESSAGE .
[2016-07-06] MEDS ORDERED: clonazePAM 0.5 MG TABLET PO PRN (10:22)
--- NOTE | 2016-07-06 13:14 | PN ---
Progress Note, Physician History of Present Illness: Pt is an 80yr old woman with PMHx of HTN, HLD, a-fib (on Eliquis), dementia and anxiety. Pt was discharged on 05/31 to [facility] after admission for cellulitis. Pt now presents to the ER with CC of abdominal pain. In the ER pt with BUN/Cr 28/1.1 and WBC 17.4. Prelim read of CT of ab/pel concerning for possible acute process. Pt admitted to the ICU for further management. Upon assessment pt denies chest pain/sob/stomachache/headache/diarrhea. 115/62, HR 79 (sinus on tele) low 90s on NC RR 20s. - Past Medical History - Current Medication List Current Medications: Active Medications Acetaminophen (Tylenol -) 650 mg PO Q6H PRN PRN Reason: FEVER OR PAIN Last Admin: 06/25/16 16:42 Dose: 650 mg Amino Acids (Prosource No Carb Liquid Pkt) 30 ml PO BID@0800,1730 [facility] Last Admin: 07/06/16 09:47 Dose: 30 ml Ascorbic Acid (Vitamin C -) 500 mg PO DAILY [facility] Last Admin: 07/06/16 09:49 Dose: 500 mg Clonazepam (Klonopin -) 0.5 mg PO TID PRN PRN Reason: ANXIETY Clonidine HCl (Catapres Tts Patch -) 0.1 mg TD Q7D@1000 [facility] Last Admin: 06/30/16 10:07 Dose: 0.1 mg Digoxin (Lanoxin -) 0.125 mg PO Q2D [facility] Last Admin: 07/06/16 09:48 Dose: 0.125 mg Ferrous Sulfate (Feosol -) 325 mg PO DAILY@0800 [facility] Last Admin: 07/06/16 09:46 Dose: 325 mg Folic Acid (Folic Acid -) 1 mg PO DAILY [facility] Last Admin: 07/06/16 09:47 Dose: 1 mg Guaifenesin (Robitussin Dm -) 10 ml PO Q8H PRN PRN Reason: COUGH Last Admin: 07/06/16 05:49 Dose: 10 ml Dextrose (D5w -) 1,000 mls @ 30 mls/hr IV ASDIR [facility] Last Admin: 07/05/16 17:07 Dose: 30 mls/hr Lactobacillus Acidophilus (Bacid -) 1 tab PO DAILY [facility] Last Admin: 07/06/16 09:47 Dose: 1 tab Megestrol Acetate (Megace Oral Suspension -) 400 mg PO DAILY [facility] Last Admin: 07/06/16 09:48 Dose: 400 mg Metoprolol Tartrate (Lopressor -) 25 mg PO BID [facility] Last Admin: 07/06/16 09:48 Dose: Not Given Metronidazole (Flagyl -) 500 mg PO TID [facility] Last Admin: 07/06/16 05:49 Dose: 500 mg Mirtazapine (Remeron -) 7.5 mg PO HS [facility] Last Admin: 07/05/16 22:31 Dose: 7.5 mg Multivitamins/Minerals/Vitamin C (Tab-A-Vit -) 1 tab PO DAILY [facility] Last Admin: 07/06/16 09:47 Dose: 1 tab Nystatin/Triamcinolone Acetonide (Mycolog Ii Cream -) 1 applic TP BID [facility] Last Admin: 07/06/16 09:48 Dose: 1 applic Ondansetron HCl (Zofran Injection) 4 mg IVPB Q6H PRN PRN Reason: NAUSEA Potassium Phos/Sodium Phos (Phos-Nak Packet -) 1 packet PO DAILY [facility] Last Admin: 07/06/16 09:49 Dose: 1 packet - Objective Vital Signs: Vital Signs Temperature 98.3 F 07/06/16 10:00 Pulse Rate 88 07/06/16 10:10 Respiratory Rate 18 07/06/16 10:00 Blood Pressure 101/65 07/06/16 10:00 O2 Sat by Pulse Oximetry (%) 90 L 07/06/16 10:10 Eyes: Yes: WNL, Conjunctiva Clear, EOM Intact HENT: Yes: WNL, Atraumatic, Normocephalic Neck: Yes: WNL, Supple, Trachea Midline Cardiovascular: Yes: WNL, Regular Rate and Rhythm Respiratory: Yes: WNL, Regular, CTA Bilaterally Gastrointestinal: Yes: WNL, Normal Bowel Sounds Genitourinary: Yes: WNL Musculoskeletal: Yes: WNL Extremities: Yes: WNL Edema: No Integumentary: Yes: WNL Neurological: Yes: WNL, Alert, Oriented ...Motor Strength: WNL Psychiatric: Yes: WNL Labs: CBC, BMP 07/05/16 06:45 07/05/16 06:45 INR, PTT INR 1.73 (0.82-1.09) H 06/27/16 10:15 Problem List - Problems (1) Bowel perforation Code(s): K63.1 - PERFORATION OF INTESTINE (NONTRAUMATIC) (2) Diverticulitis of colon with perforation Code(s): K57.20 - DVTRCLI OF LG INT W PERFORATION AND ABSCESS W/O BLEEDING (3) Intra-abdominal abscess Code(s): K65.1 - PERITONEAL ABSCESS (4) Anxiety Code(s): F41.9 - ANXIETY DISORDER, UNSPECIFIED (5) Thibodeaux's cyst of knee Code(s): M71.20 - SYNOVIAL CYST OF POPLITEAL SPACE [THIBODEAUX], UNSPECIFIED KNEE Qualifiers: Qualified Code(s): M71.22 - Synovial cyst of popliteal space [Thibodeaux], left knee (6) Cellulitis Code(s): L03.90 - CELLULITIS, UNSPECIFIED (7) Contusion of foot Code(s): S90.30XA - CONTUSION OF UNSPECIFIED FOOT, INITIAL ENCOUNTER (8) Cystitis Code(s): N30.90 - CYSTITIS, UNSPECIFIED WITHOUT HEMATURIA (9) Dehydration Code(s): E86.0 - DEHYDRATION (10) Fever Code(s): R50.9 - FEVER, UNSPECIFIED (11) Gait difficulty Code(s): R26.9 - UNSPECIFIED ABNORMALITIES OF GAIT AND MOBILITY (12) Generalized weakness Code(s): R53.1 - WEAKNESS (13) HTN (hypertension) Code(s): I10 - ESSENTIAL (PRIMARY) HYPERTENSION Qualifiers: Qualified Code(s): I10 - Essential (primary) hypertension (14) Hyperlipidemia Code(s): E78.5 - HYPERLIPIDEMIA, UNSPECIFIED Qualifiers: Qualified Code(s): E78.0 - Pure hypercholesterolemia (15) Pain Code(s): R52 - PAIN, UNSPECIFIED (16) Rapid atrial fibrillation Code(s): I48.91 - UNSPECIFIED ATRIAL FIBRILLATION (17) Renal insufficiency Code(s): N28.9 - DISORDER OF KIDNEY AND URETER, UNSPECIFIED (18) Sepsis Code(s): A41.9 - SEPSIS, UNSPECIFIED ORGANISM Qualifiers: Qualified Code(s): A41.51 - Sepsis due to Escherichia coli [E. coli] (19) UTI (urinary tract infection) Code(s): N39.0 - URINARY TRACT INFECTION, SITE NOT SPECIFIED Assessment/Plan - Problems (1) Afib Assessment/Plan: Decreased digoxin to 0.125 mg every other day (level 1.47-->now 0.6); keep level 0.5-1.0. Continue metoprolol. On Lovenox until PO anticoagulation restarted (consider NOAC). K and Mg WNL. Code(s): I48.91 - UNSPECIFIED ATRIAL FIBRILLATION (2) Intra-abdominal abscess Assessment/Plan: Drainage f/u assessment with surgeon. As discussed with Dr. Cordon (Hardwood Floor Installation Helper), pt is at high risk for hysterectomy; pt and family defer surgery presently. On antibiotics per ID. Code(s): K65.1 - PERITONEAL ABSCESS (3) Anxiety Code(s): F41.9 - ANXIETY DISORDER, UNSPECIFIED (4) HTN (hypertension) Assessment/Plan: On metoprolol, and clonidine (patch) restarted. Risk of rebound hypertension when abruptly stopping clonidine (exacerbated when also on metoprolol). Code(s): I10 - ESSENTIAL (PRIMARY) HYPERTENSION Qualifiers: Qualified Code(s): I10 - Essential (primary) hypertension (5) Sepsis Assessment/Plan: on antibiotics; followed by ID. Maintain hydration (changes by ratchet setter noted). LVEF WNL by ECHO. Code(s): A41.9 - SEPSIS, UNSPECIFIED ORGANISM Qualifiers: Qualified Code(s): A41.51 - Sepsis due to Escherichia coli [E. coli] (6) Anemia Code(s): D64.9 - ANEMIA, UNSPECIFIED Qualifiers: Qualified Code(s): D63.8 - Anemia in other chronic diseases classified elsewhere (7) GI tract abscess Assessment/Plan: CT abdomen results relatively unchanged (large left air/fluid loculation; R>L pleural effusion). Code(s): K63.0 - ABSCESS OF INTESTINE (8) Hypokalemia Assessment/Plan: On electrolytes and fluids; normal Na, K and Mg (followed by ratchet setter). Code(s): E87.6 - HYPOKALEMIA
[2016-07-06 15:11] VITALS: BP 129/59; TEMP 99.2
[2016-07-06 15:14] VITALS: PULSE 112
--- NOTE | 2016-07-06 17:16 | PN ---
Progress Note, Physician History of Present Illness: Pt seen and examined at bedside. She is more awake today than she was yesterday. - Current Medication List Current Medications: Active Medications Acetaminophen (Tylenol -) 650 mg PO Q6H PRN PRN Reason: FEVER OR PAIN Last Admin: 06/25/16 16:42 Dose: 650 mg Amino Acids (Prosource No Carb Liquid Pkt) 30 ml PO BID@0800,1730 [facility] Last Admin: 07/06/16 09:47 Dose: 30 ml Ascorbic Acid (Vitamin C -) 500 mg PO DAILY [facility] Last Admin: 07/06/16 09:49 Dose: 500 mg Clonazepam (Klonopin -) 0.5 mg PO TID PRN PRN Reason: ANXIETY Clonidine HCl (Catapres Tts Patch -) 0.1 mg TD Q7D@1000 [facility] Last Admin: 06/30/16 10:07 Dose: 0.1 mg Digoxin (Lanoxin -) 0.125 mg PO Q2D [facility] Last Admin: 07/06/16 09:48 Dose: 0.125 mg Ferrous Sulfate (Feosol -) 325 mg PO DAILY@0800 [facility] Last Admin: 07/06/16 09:46 Dose: 325 mg Folic Acid (Folic Acid -) 1 mg PO DAILY [facility] Last Admin: 07/06/16 09:47 Dose: 1 mg Guaifenesin (Robitussin Dm -) 10 ml PO Q8H PRN PRN Reason: COUGH Last Admin: 07/06/16 05:49 Dose: 10 ml Dextrose (D5w -) 1,000 mls @ 30 mls/hr IV ASDIR [facility] Last Admin: 07/05/16 17:07 Dose: 30 mls/hr Lactobacillus Acidophilus (Bacid -) 1 tab PO DAILY [facility] Last Admin: 07/06/16 09:47 Dose: 1 tab Megestrol Acetate (Megace Oral Suspension -) 400 mg PO DAILY [facility] Last Admin: 07/06/16 09:48 Dose: 400 mg Metoprolol Tartrate (Lopressor -) 25 mg PO BID [facility] Last Admin: 07/06/16 09:48 Dose: Not Given Metronidazole (Flagyl -) 500 mg PO TID [facility] Last Admin: 07/06/16 14:20 Dose: 500 mg Mirtazapine (Remeron -) 7.5 mg PO HS [facility] Last Admin: 07/05/16 22:31 Dose: 7.5 mg Multivitamins/Minerals/Vitamin C (Tab-A-Vit -) 1 tab PO DAILY [facility] Last Admin: 07/06/16 09:47 Dose: 1 tab Nystatin/Triamcinolone Acetonide (Mycolog Ii Cream -) 1 applic TP BID [facility] Last Admin: 07/06/16 09:48 Dose: 1 applic Ondansetron HCl (Zofran Injection) 4 mg IVPB Q6H PRN PRN Reason: NAUSEA Potassium Phos/Sodium Phos (Phos-Nak Packet -) 1 packet PO DAILY [facility] Last Admin: 07/06/16 09:49 Dose: 1 packet - Objective Vital Signs: Vital Signs Temperature 99.2 F 07/06/16 15:10 Pulse Rate 112 H 07/06/16 15:10 Respiratory Rate 18 07/06/16 15:10 Blood Pressure 129/59 07/06/16 15:10 O2 Sat by Pulse Oximetry (%) 90 L 07/06/16 10:10 Constitutional: Yes: Calm Eyes: Yes: Conjunctiva Clear HENT: Yes: Atraumatic Cardiovascular: Yes: S1, S2 Respiratory: Yes: CTA Bilaterally Gastrointestinal: Yes: Other (eagle drain in place) Genitourinary: Yes: Incontinence Musculoskeletal: Yes: Muscle Weakness Edema: No Neurological: Yes: Confusion Labs: CBC, BMP 07/05/16 06:45 07/05/16 06:45 INR, PTT INR 1.73 (0.82-1.09) H 06/27/16 10:15 Problem List - Problems (1) Afib Code(s): I48.91 - UNSPECIFIED ATRIAL FIBRILLATION (2) Anemia Code(s): D64.9 - ANEMIA, UNSPECIFIED Qualifiers: Qualified Code(s): D63.8 - Anemia in other chronic diseases classified elsewhere (3) Anxiety and depression Code(s): F41.9 - ANXIETY DISORDER, UNSPECIFIED F32.9 - MAJOR DEPRESSIVE DISORDER, SINGLE EPISODE, UNSPECIFIED (4) Dementia Code(s): F03.90 - UNSPECIFIED DEMENTIA WITHOUT BEHAVIORAL DISTURBANCE Assessment/Plan Current Medications Generic Name Dose Route Start Last Admin Trade Name Freq PRN Reason Stop Dose Admin Acetaminophen 650 mg 06/23/16 12:18 06/25/16 16:42 Tylenol - PO 650 mg Q6H PRN Administration FEVER OR PAIN Amino Acids 30 ml 06/23/16 17:30 07/06/16 09:47 Prosource No Carb Liquid Pkt PO 30 ml BID@0800,1730 [facility] Administration Ascorbic Acid 500 mg 06/24/16 10:00 07/06/16 09:49 Vitamin C - PO 500 mg DAILY [facility] Administration Clonazepam 0.5 mg 07/06/16 10:22 Klonopin - PO TID PRN ANXIETY Clonidine HCl 0.1 mg 06/30/16 10:00 06/30/16 10:07 Catapres Tts Patch - TD 0.1 mg Q7D@1000 [facility] Administration Digoxin 0.125 mg 06/24/16 10:00 07/06/16 09:48 Lanoxin - PO 0.125 mg Q2D [facility] Administration Ferrous Sulfate 325 mg 06/24/16 08:00 07/06/16 09:46 Feosol - PO 325 mg DAILY@0800 [facility] Administration Folic Acid 1 mg 06/24/16 10:00 07/06/16 09:47 Folic Acid - PO 1 mg DAILY [facility] Administration Guaifenesin 10 ml 07/03/16 23:42 07/06/16 05:49 Robitussin Dm - PO 10 ml Q8H PRN Administration COUGH Dextrose 1,000 mls @ 30 mls/hr 07/04/16 16:13 07/05/16 17:07 D5w - IV 30 mls/hr ASDIR [facility] Administration Lactobacillus Acidophilus 1 tab 06/24/16 10:00 07/06/16 09:47 Bacid - PO 1 tab DAILY [facility] Administration Megestrol Acetate 400 mg 06/30/16 10:00 07/06/16 09:48 Megace Oral Suspension - PO 400 mg DAILY [facility] Administration Metoprolol Tartrate 25 mg 06/23/16 22:00 07/06/16 09:48 Lopressor - PO Not Given BID [facility] Metronidazole 500 mg 07/04/16 14:00 07/06/16 14:20 Flagyl - PO 500 mg TID [facility] Administration Mirtazapine 7.5 mg 06/29/16 22:00 07/05/16 22:31 Remeron - PO 7.5 mg HS [facility] Administration Multivitamins/Minerals/Vitamin C 1 tab 06/24/16 10:00 07/06/16 09:47 Tab-A-Vit - PO 1 tab DAILY [facility] Administration Nystatin/Triamcinolone Acetonide 1 applic 07/01/16 22:00 07/06/16 09:48 Mycolog Ii Cream - TP 1 applic BID [facility] Administration Ondansetron HCl 4 mg 06/23/16 12:18 Zofran Injection IVPB Q6H PRN NAUSEA Potassium Phos/Sodium Phos 1 packet 06/24/16 10:00 07/06/16 09:49 Phos-Nak Packet - PO 1 packet DAILY [facility] Administration Impression 1. Hypernatremia 2. HTN 3. dementia 4. a-fib 5. intra-abdominal abscess 6. sepsis 7. pleural effusions 8. Hypokalemia Plan - labs reviewed and electrolytes are stable, this is however on fluids - encourage PO intake - monitor bloodwork - discussed plan with pts son - wound care to abdomen - will follow PRN - phos levels have normalized, will need to monitor while on phos supplements Dr Eid
[2016-07-06] MEDS: DEXTROSE 5%-WATER - 1,000 ML IV SCH (17:39)
== END 2016-07-06 18:30 | DRG 329 ==
LOC: JER 00:53 → JERBED 05:28 → JICU 05:59 → J4W 06-17 17:22 → JICU 06-22 10:49 → J8W 06-23 13:26
PROVIDERS: ADMIT Family Medicine; ATTEND Family Medicine
PROC: 0UB90ZX Excision of Uterus, Open Approach, Diagnostic (ICD-10-PCS; 2016-06-15)
PROC: 30233L1 Transfusion of Nonautologous Fresh Plasma into Peripheral Vein, Percutaneous Approach (ICD-10-PCS; 2016-06-15)
PROC: 30233K1 Transfusion of Nonautologous Frozen Plasma into Peripheral Vein, Percutaneous Approach (ICD-10-PCS; 2016-06-15)
PROC: 30233R1 Transfusion of Nonautologous Platelets into Peripheral Vein, Percutaneous Approach (ICD-10-PCS; 2016-06-15)
PROC: 0W9F0ZX Drainage of Abdominal Wall, Open Approach, Diagnostic (ICD-10-PCS; principal; 2016-06-15 13:00)
PROC: 0DQA0ZZ Repair Jejunum, Open Approach (ICD-10-PCS; 2016-06-15 13:00)
PROC: 30233N1 Transfusion of Nonautologous Red Blood Cells into Peripheral Vein, Percutaneous Approach (ICD-10-PCS; 2016-06-20)
DX: K57.32 Diverticulitis of large intestine without perforation or abscess without bleeding (principal); K65.1 Peritoneal abscess; R65.21 Severe sepsis with septic shock; A41.51 Sepsis due to Escherichia coli [E. coli]; N39.0 Urinary tract infection, site not specified; J90 Pleural effusion, not elsewhere classified; I47.1 Supraventricular tachycardia; N73.0 Acute parametritis and pelvic cellulitis; E87.0 Hyperosmolality and hypernatremia; E87.1 Hypo-osmolality and hyponatremia; I10 Essential (primary) hypertension; F41.9 Anxiety disorder, unspecified; E78.5 Hyperlipidemia, unspecified; I48.91 Unspecified atrial fibrillation; D64.9 Anemia, unspecified; F03.90 Unspecified dementia, unspecified severity, without behavioral disturbance, psychotic disturbance, mood disturbance, and anxiety; E87.6 Hypokalemia; N71.9 Inflammatory disease of uterus, unspecified; E86.0 Dehydration; R26.9 Unspecified abnormalities of gait and mobility; Z87.891 Personal history of nicotine dependence; D72.829 Elevated white blood cell count, unspecified; Z88.0 Allergy status to penicillin; F32.9 Major depressive disorder, single episode, unspecified; R53.1 Weakness; N28.9 Disorder of kidney and ureter, unspecified
CPT/HCPCS: 31500; 36415; 36430; 36600; 71010-TC; 71020-TC; 74176-TC; 74177-TC; 74178-TC; 74230-TC; 76856-TC; 80048; 80053; 80162; 81003; 81015; 82150; 82272; 82550; 82803; 83605; 83690; 83735; 83880; 84100; 84134; 84484; 85025; 85027; 85610; 85651; 85730; 86140; 86850; 86870; 86880; 86900; 86901; 86902; 86922; 87040; 87070; 87075; 87086; 87186; 87205; 87254; 87804; 88108; 88304-TC; 88305-TC; 89051; 92611-GN; 93005; 93010; 93306-TC; 94002; 94010; 97161-GP; 99285-25; P9017; P9034; P9058; Q9967

== ENCOUNTER 2016-07-14 19:06 | Inpatient (IN) | payer OTHER ==
[2016-07-14] MEDS ORDERED: ACETAMINOPHEN 650 MG SUPP.RECT ONE (19:12)
[2016-07-14] MEDS ORDERED: ACETAMINOPHEN 650 MG SUPP.RECT PR ONE (19:20)
[2016-07-14] MEDS ORDERED: SODIUM CHLORIDE 250 ML IV ONE (19:45)
[2016-07-14 19:49] LABS: MCH 27.5 pg (25.7-33.7); MCHC 31.6 g/dl (32.0-36.0); MEAN PLT VOLUME 7.9 fl (7.5-11.1); PLATELET COUNT 423 K/MM3 (134-434); RDW 16.4 % (11.6-15.6); WHITE BLOOD COUNT 22.7 K/mm3 (4.0-10.0)
[2016-07-14 20:01] VITALS: BMI 18.6
[2016-07-14 20:05] LABS: URINE APPEARANCE CLOUDY; URINE BILIRUBIN NEGATIVE (NEGATIVE); URINE COLOR AMBER; URINE GLUCOSE (UA) NEGATIVE (NEGATIVE); URINE KETONE NEGATIVE (NEGATIVE); URINE NITRITE NEGATIVE (NEGATIVE); URINE PROTEIN NEGATIVE (NEGATIVE); URINE UROBILINOGEN NEGATIVE E.U./dl (0.2-1.0)
[2016-07-14 20:06] LABS: INR 2.17 (0.82-1.09); PROTHROMBIN TIME (PATIENT) 24.3 SEC (9.98-11.88)
[2016-07-14 20:09] LABS: ACTIVATED PTT 35.6 SECONDS (26.9-34.4)
[2016-07-14 20:11] LABS: URINE BLOOD 3+ (NEGATIVE); URINE LEUK ESTERASE 1+ (NEGATIVE)
--- NOTE | 2016-07-14 20:15 | PDOC ---
History of Present Illness - General History Source: Patient Exam Limitations: No Limitations - History of Present Illness Initial Comments: 07/14/16 20:38 The patient is a 80 year old female with significant past medical history of a- fib, hypertension, hyperlipidemia, and recent perforated intestine s/p exploratory laparotomy (06/15/16) who presents to the ED BIB from [place] with persistent abdominal pain and fever. Patient was seen here in the ER on 06/15 for abdominal pain, where she had an extensive workup including an abdomen CT that revealed a perforated intestine. Patient was admitted and during her admission she had a exploratory laparotomy done by Dr. Wayne and patient was found to have a uterine infection. She was treated, a drainage tube was place, and she was discharged on 07/05. Patient returns for persistent abdominal pain and fever (tmax 102). Patients white count was found to be 18 at [place]. Patient is a poor historian and history is given by son, at bedside. She currently has a drainage tube placed in her mid-abdomen region. Allergies: penicillin Social History: No alcohol, tobacco, or drug use reported. Past Surgical History: perforated intestine s/p exploratory laparotomy (06/15/16) PCP: Dr. Diallo Kirkland <Kalyn Richards - Last Filed: 07/14/16 20:52> - General History Source: Family <Reji Laguna - Last Filed: 07/14/16 20:58> - General Chief Complaint: SIRS, Suspected/Possible Stated Complaint: POSSIBLE SEPSIS Time Seen by Provider: 07/14/16 20:15 Past History <Kalyn Richards - Last Filed: 07/14/16 20:52> - Past Medical History Cancer: Yes (rt) Cardiac Disorders: Yes GI Disorders: Yes (sbo) Disorders: Yes (RECURRENT UTI) HTN: Yes Hypercholesterolemia: Yes Psychiatric Problems: Yes (anxiety) - Surgical History GI Surgery: Yes (resection) - Immunization History Immunization Up to Date: Yes - Psycho/Social/Smoking Cessation Hx Anxiety: No Suicidal Ideation: No Smoking History: Never smoked Have you smoked in the past 12 months: No If you are a former smoker, when did you quit?: 1984 Hx Alcohol Use: No Drug/Substance Use Hx: No Substance Use Type: None <Reji Laguna - Last Filed: 07/14/16 20:58> - Past Medical History Allergies/Adverse Reactions: Allergies Allergy/AdvReac Type Severity Reaction Status Date / Time Penicillins Allergy Verified 06/15/16 01:05 Home Medications: Ambulatory Orders Digoxin [Lanoxin -] 0.125 mg PO DAILY tablet 01/16/15 Magnesium Oxide [Mag-Ox -] 400 mg PO BID tablet 01/16/15 Multivitamins [Multivit ([facility] Formulary)] 1 tab PO DAILY tab 01/16/15 Apixaban [Eliquis] 2.5 mg PO BID 05/28/16 Citalopram Hydrobromide [Celexa -] 10 mg PO DAILY 05/28/16 Clonazepam [Klonopin -] 0.5 mg PO TID 05/28/16 Clonidine HCl 0.1 mg PO BID 05/28/16 Rosuvastatin [Crestor -] 5 mg PO HS tablet 06/01/16 Oxycodone HCl [Roxicodone -] 5 mg PO ONCE 06/15/16 Acetaminophen [Tylenol .Regular Strength -] 650 mg PO Q6H PRN #0 tablet Albuterol 2.5/Ipratropium 0.5 [Duoneb -] 1 amp NEB Q6H PRN #0 amp 07/05/16 Amino Acids/Protein Hydrolys [Prosource No Carb Liquid Pkt] 30 ml PO BID@0800, 1730 packet 07/05/16 Ascorbic Acid [Vitamin C -] 500 mg PO DAILY tablet 07/05/16 Clonazepam [Klonopin -] 0.5 mg PO TID #90 tablet MDD 3 07/05/16 Clonidine Patch [Catapres Tts Patch -] 0.1 mg TD Q7D@1000 patch.tdwk 07/05/16 Digoxin [Lanoxin -] 0.125 mg PO Q2D tablet 07/05/16 Ferrous Sulfate [Feosol] 325 mg PO DAILY@0800 ud 07/05/16 Folic Acid - 1 mg PO DAILY tablet 07/05/16 Guaifenesin Dm [Robitussin Dm -] 10 ml PO Q8H PRN #0 cup 07/05/16 Lactobacillus Acidophilus [Bacid -] 1 tab PO DAILY tab 07/05/16 Megestrol Acetate Oral Susp [Megace Oral Suspension -] 400 mg PO DAILY cup Metoprolol Tartrate [Lopressor -] 25 mg PO BID tablet 07/05/16 Metronidazole [Flagyl -] 500 mg PO TID tablet 07/05/16 Mirtazapine [Remeron -] 7.5 mg PO HS tablet 07/05/16 Multivitamins [Multivit ([facility] Formulary)] 1 tab PO DAILY tab 07/05/16 Naph,Mb-Db/K pH,Mbdb [PHOS-NaK PACKET -] 1 packet PO DAILY pow 07/05/16 Nystatin/Triamcinolone Top Cr [Mycolog II -] 1 applic TP BID applic 07/05/16 Acetaminophen [Tylenol .Regular Strength -] 325 mg PO Q6H PRN 07/14/16 Aspirin [ASA -] 81 mg PO DAILY 07/14/16 Docusate Sodium [Colace Oral Solution -] 300 mg PO HS 07/14/16 Review of Systems - Review of Systems Able to Perform ROS?: No Comments:: 07/14/16 20:39 Limited due to patients clinical condition. <Kalyn Richards - Last Filed: 07/14/16 20:52> *Physical Exam - Vital Signs Last Vital Signs Temp Pulse Resp BP Pulse Ox 101.1 F H 92 H 22 100/52 95 07/14/16 19:07 07/14/16 20:32 07/14/16 20:32 07/14/16 20:32 07/14/16 20:32 - Physical Exam Comments: 07/14/16 20:39 GENERAL: Well developed, well nourished. Awake. No acute distress. HEENT: Normocephalic, atraumatic. PERRLA, EOMI. No conjunctival pallor. Sclera are non- icteric. Moist mucous membranes. Oropharynx is clear. NECK: Supple. Full ROM. No JVD. Carotid pulses 2+ and symmetric, without bruits. No thyromegaly. No lymphadenopathy. CARDIOVASCULAR: Tachycardia. Regular rhythm. No murmurs, rubs, or gallops. PULMONARY: No evidence of respiratory distress. Lungs clear to auscultation bilaterally. No wheezing, rales or rhonchi. ABDOMINAL: Soft. Mild diffuse tenderness. Drainage tube midabdomen region. Well healing infraumbilical wound. Non-distended. No rebound or guarding. No organomegaly. Hyperactive bowel sounds. MUSCULOSKELETAL Normal range of motion at all joints. No bony deformities or tenderness. No CVA tenderness. EXTREMITIES: No cyanosis. No clubbing. No edema. No calf tenderness. SKIN: Warm and dry. Normal capillary refill. No rashes. No jaundice. NEUROLOGICAL: AOx2. Pt is answering questions slowly, but appropriately. Moving all extremities. No gross focal neurological deficits. <Kalyn Richards - Last Filed: 07/14/16 20:52> - Vital Signs Last Vital Signs Temp Pulse Resp BP Pulse Ox 101.1 F H 96 H 24 103/52 94 L 07/14/16 19:07 07/14/16 19:07 07/14/16 19:07 07/14/16 19:07 07/14/16 19:07 <Reji Laguna - Last Filed: 07/14/16 20:58> Heart Score/ECG Review - ECG Impressions Comment:: 07/14/16 20:39 Sinus rhythm with occasional premature ventricular complexes @85bpm Anterior infarct, age undetermined Abnormal ECG <Kalyn Richards - Last Filed: 07/14/16 20:52> ED Treatment Course - LABORATORY CBC & Chemistry Diagram: 07/14/16 19:42 07/14/16 19:42 - ADDITIONAL ORDERS Additional order review: Laboratory Results 07/14/16 07/14/16 07/14/16 19:50 19:42 19:42 INR PTT (Actin FS) Sodium Cancelled Potassium Cancelled Chloride Cancelled Carbon Dioxide Cancelled Anion Gap Cancelled BUN Cancelled Creatinine Cancelled Creat Clearance w eGFR Cancelled Random Glucose Cancelled Lactic Acid 0.838 Calcium Cancelled Total Bilirubin Cancelled AST Cancelled ALT Cancelled Alkaline Phosphatase Cancelled Creatine Kinase Troponin I Total Protein Cancelled Albumin Cancelled Urine Color Kacey Urine Appearance Cloudy Urine pH 5.0 Ur Specific [place] 1.019 Urine Protein Negative Urine Glucose (UA) Negative Urine Ketones Negative Urine Blood 3+ H Urine Nitrite Negative Urine Bilirubin Negative Urine Urobilinogen Negative Ur Leukocyte Esterase 1+ H 07/14/16 07/14/16 19:42 19:42 INR 2.17 H PTT (Actin FS) 35.6 H Sodium Potassium Chloride Carbon Dioxide Anion Gap BUN Creatinine Creat Clearance w eGFR Random Glucose Lactic Acid Calcium Total Bilirubin AST ALT Alkaline Phosphatase Creatine Kinase Cancelled Troponin I Cancelled Total Protein Albumin Urine Color Urine Appearance Urine pH Ur Specific [place] Urine Protein Urine Glucose (UA) Urine Ketones Urine Blood Urine Nitrite Urine Bilirubin Urine Urobilinogen Ur Leukocyte Esterase 07/14/16 19:42 RBC 2.95 L MCV 87.0 MCHC 31.6 L RDW 16.4 H MPV 7.9 D Neutrophils % Y Lymphocytes % Y <Kalyn Richards - Last Filed: 07/14/16 20:52> - LABORATORY CBC & Chemistry Diagram: 07/14/16 19:42 07/14/16 19:42 - ADDITIONAL ORDERS Additional order review: Laboratory Results 07/14/16 19:50 Urine Color Kacey Urine Appearance Cloudy Urine pH 5.0 Ur Specific [place] 1.019 Urine Protein Negative Urine Glucose (UA) Negative Urine Ketones Negative Urine Blood 3+ H Urine Nitrite Negative Urine Bilirubin Negative Urine Urobilinogen Negative Ur Leukocyte Esterase 1+ H 07/14/16 19:42 RBC 2.95 L MCV 87.0 MCHC 31.6 L RDW 16.4 H MPV 7.9 D Neutrophils % Y Lymphocytes % Y <Reji Laguna - Last Filed: 07/14/16 20:58> Medical Decision Making - Medical Decision Making 07/14/16 20:[address] Janes Mcginnis who is covering for Dr. Kimmy Mendez who is covering for Dr. Diallo Kirkland (via answering service) at 20:16 Awaiting call back 07/14/16 20:52 Second call placed to Dr. Mcginnis (via answering service) at 20:52 Awaiting call back Patient's case discussed with Dr. Mcginnis at 20:52 <Kalyn Richards - Last Filed: 07/14/16 20:52> - Medical Decision Making 07/14/16 20:55 Dr. Laguna: The scribe's documentation has been prepared under my direction and personally reviewed by me in its entirery. I confirm that the note above accurately reflects all work, treatment, procedures, and medical decision making performed by me. 07/14/16 20:57 Pt to be admitted for fever, sepsis to [facility] <Reji Laguna - Last Filed: 07/14/16 20:58> *DC/Admit/Observation/Transfer - Attestations Scribe Attestion: 07/14/16 20:42 Documentation prepared by Kalyn Richards, acting as medical hospital sales for Reji Laguna MD <Kalyn Richards - Last Filed: 07/14/16 20:52> - Discharge Dispostion Admit: Yes <Reji Laguna - Last Filed: 07/14/16 20:58> Diagnosis at time of Disposition: Severe sepsis, Fever - Referrals Referrals: Diallo Kirkland MD [Primary Care Provider] -
[2016-07-14] MEDS ORDERED: SODIUM CHLORIDE 1,000 ML IV ONE (20:20)
[2016-07-14 21:12] LABS: ALBUMIN 2.1 g/dl (3.4-5.0); ANION GAP 9 (8-16); BILIRUBIN,TOTAL 0.3 mg/dL (0.2-1.0); CALCIUM 7.9 mg/dL (8.5-10.1); CO2 24 mmol/L (21-32); CREATININE 0.9 mg/dL (0.55-1.02); GLUCOSE,RANDOM 93 mg/dL (74-106); SGOT/AST 11 U/L (15-37); SGPT/ALT 10 U/L (12-78); TOT PROT 5.7 g/dl (6.4-8.2)
[2016-07-14 21:14] LABS: ALK PHOS 44 U/L (45-117); TROPONIN I < 0.02 ng/ml (0.00-0.05)
[2016-07-14] MEDS ORDERED: ALBUTEROL SO4 2.5/IPRATROPIUM 0.5 INH SOL 3 ML VIAL.NEB. NEB PRN (21:27)
[2016-07-14 21:30] LABS: URINE BACTERIA MANY /hpf (NONE SEEN); URINE MUCUS MODERATE; URINE RBC 215 /hpf (0-3); URINE WBC 49 /hpf (3-5)
[2016-07-14] MEDS ORDERED: cloNIDine HCL 0.1 MG TABLET PO SCH (22:00)
[2016-07-14] MEDS ORDERED: DOCUSATE SODIUM 100 MG CAPSULE (FP) PO SCH (22:00)
[2016-07-14] MEDS ORDERED: ROSUVASTATIN CA 5 MG TABLET (FP) PO SCH (22:00)
[2016-07-14] MEDS ORDERED: HEPARIN NA (PORCINE) 5,000 UNITS/ML 1ML VIAL SQ SCH (22:00)
[2016-07-14 22:03] LABS: PLATELET ESTIMATE ADEQUATE (NORMAL)
[2016-07-14] MEDS ORDERED: clonazePAM 0.5 MG TABLET ONE (22:15)
[2016-07-14] MEDS ORDERED: MAGNESIUM OXIDE 400 MG TABLET (FP) ONE (22:15)
[2016-07-14] MEDS ORDERED: metroNIDAZOLE 250 MG TABLET ONE (22:15)
[2016-07-14] MEDS ORDERED: MIRTAZAPINE 15 MG TABLET (FP) ONE (22:16)
[2016-07-14] MEDS ORDERED: METOPROLOL TARTRATE 25 MG TABLET (FP) ONE (22:16)
[2016-07-14] MEDS: metroNIDAZOLE 250 MG TABLET PO SCH (22:54)
[2016-07-14] MEDS: clonazePAM 0.5 MG TABLET PO SCH (22:54)
[2016-07-14] MEDS: MAGNESIUM OXIDE 400 MG TABLET (FP) PO SCH (22:54)
[2016-07-14] MEDS: MIRTAZAPINE 15 MG TABLET (FP) PO SCH (22:54)
[2016-07-14] MEDS: APIXABAN 2.5 MG TABLET PO SCH (22:54)
[2016-07-14] MEDS: METOPROLOL TARTRATE 25 MG TABLET (FP) PO SCH (22:54)
[2016-07-14] MEDS: NYSTATIN/TRIAMCINOLONE TOPICAL CREAM 15 GM TUBE TP SCH (22:55)
[2016-07-15] MEDS: clonazePAM 0.5 MG TABLET PO SCH ×3 (06:17→22:40)
[2016-07-15] MEDS: metroNIDAZOLE 250 MG TABLET PO SCH (06:17)
[2016-07-15 08:21] LABS: MCH 27.9 pg (25.7-33.7); MCHC 32.1 g/dl (32.0-36.0); MEAN CELL VOLUME 87.1 fl (80-96); MEAN PLT VOLUME 7.3 fl (7.5-11.1); PLATELET COUNT 399 K/MM3 (134-434)
[2016-07-15 08:35] LABS: INR 1.96 (0.82-1.09); PROTHROMBIN TIME (PATIENT) 21.9 SEC (9.98-11.88)
[2016-07-15 09:08] LABS: ALBUMIN 2.1 g/dl (3.4-5.0); ALK PHOS 47 U/L (45-117); ANION GAP 12 (8-16); BILIRUBIN,TOTAL 0.4 mg/dL (0.2-1.0); CALCIUM 8.2 mg/dL (8.5-10.1); CO2 24 mmol/L (21-32); CREATININE 0.8 mg/dL (0.55-1.02); GLUCOSE,RANDOM 81 mg/dL (74-106); MAGNESIUM 2.1 mg/dL (1.8-2.4); PHOSPHOROUS 3.4 mg/dL (2.5-4.9); SGOT/AST 13 U/L (15-37); SGPT/ALT 9 U/L (12-78); TROPONIN I < 0.02 ng/ml (0.00-0.05)
--- NOTE | 2016-07-15 09:52 | CONSULT ---
Admitting History and Physical - Primary Care Physician PCP: Sonia Remy - Admission History of Present Illness: Per EMR: "07/14/16 20:38 The patient is a 80 year old female with significant past medical history of a- fib, hypertension, hyperlipidemia, and recent perforated intestine s/p exploratory laparotomy (06/15/16) who presents to the ED [facility] from [place] [facility] with persistent abdominal pain and fever. Patient was seen here in the ER on 06/15 for abdominal pain, where she had an extensive workup including an abdomen CT that revealed a perforated intestine. Patient was admitted and during her admission she had a exploratory laparotomy done by Dr. Wayne and patient was found to have a uterine infection. She was treated, a drainage tube was place, and she was discharged on 07/05. Patient returns for persistent abdominal pain and fever (tmax 102). Patients white count was found to be 18 at [facility]. Patient is a poor historian and history is given by son, at bedside. She currently has a drainage tube placed in her mid-abdomen region." Pt referred as she failed calorie count at [facility]. Pt known to me from last admission, last seen 07/04/16.Poor appetite at that time , with limited improvement with diet upgrade. Appetite stim recommended. P on remeron and Megace. Pt was on [facility] altered ground diet,with muffins, crustless sandwichs, eggs,and honey thick liquid, with free water protocol b/n meals. When I walked into the room, she was coughing and green liguid was on chin and chest. Nursing made aware. Likely vomited. wet cough with vocal wet, gurgly vocal quality. Aspiration? Suctioned by nursing. o2 sat 87-90. 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 Cardiovascular: Yes: AFIB, HTN, Hyperlipdemia Renal/: Yes: UTI (hx of ) ...: No Heme/Onc: Yes: Anemia Psych: Yes: Anxiety Musculoskeletal: Yes: Osteoarthritis - Past Surgical History Past Surgical History: Yes: Mastectomy (Right- for Cancer) - Smoking History Smoking history: Never smoked Have you smoked in the past 12 months: No If you are a former smoker, when did you quit?: 1984 - Alcohol/Substance Use Hx Alcohol Use: No History - Admission Reason For Visit: FEVER - Diagnostics X-ray: Report Reviewed CT Scan: Report Reviewed - General Mental Status: Able to Follow Commands, Forgetful, Combative, Vague, Confused, Lethargic (eyes mainly closed stating "Let me go to sleep. Leave me alone." Similar to last admission.) - Hearing Hearing: Functional Hearing Aide: No With Patient: No Speech Evaluation - Communication Primary Language: HUNGARIAN Communication: Yes: Simple Responses - Speech Production Able to Make Needs Known: Yes: WNL Intelligibility: Yes: Mildly Impaired - Speech Characteristics Voice Loudness: Normal Voice Pitch: Yes: Normal Voice Phonatory-based Quality: Yes: Vocal Wetness (c/w aspiration, Seen after vomited green liquid.) Speech Pattern: Normal Articulation: Yes: Precise - Swallow Evaluation/Bedside Assessment Current Nutritional Intake: Regular, Thin Liquids Dentition: Yes: Missing Teeth Facial Symmetry at Rest: Symmetrical Pucker Lips: Normal Smile: Normal Lingual Movement: Symmetric Lingual Speed of Movement: Normal Laryngeal Movement: Able to Palpate, Reduced Excursion, Labored,delay initiation Labial Seal: WFL A-P Transit: WFL Recommendations - Speech Evaluation, Impression/Plan Impression: h/o perforated intestine. Vomited green liquid before I arrived. Coughing. Wet, gurgly vocal quality.Confused. Eyes closed but verbal. Poor PO acceptance.Doubt po diet will provide sufficient nutrition/hydration at this time. - Dysphagia Impressions/Plan Swallowing Skills: Impaired Dysphagia Impressions: Suspect Aspiration *Silent aspiration: cannot be R/O at bedside Recommendations: GI Consult (vomited green liquid.) - Recommendations Diet Consistency: NPO, Other (if medically cleared for Po trial, honey thick liquid.) Medication Administration: Crushed with applesauce Supplement: Other (May benefit from TF. Doubt pt will recieve sufficient nourishment/hydration by mouth. Advanced directives?)
--- NOTE | 2016-07-15 09:57 | EKG ---
Test Reason : Blood Pressure : / mmHG Vent. Rate : 085 BPM Atrial Rate : 085 BPM P-R Int : 132 ms QRS Dur : 078 ms QT Int : 346 ms P-R-T Axes : 071 029 076 degrees QTc Int : 411 ms SINUS RHYTHM WITH OCCASIONAL PREMATURE VENTRICULAR COMPLEXES CANNOT RULE OUT ANTERIOR INFARCT POOR R WAVE PROGRESSION ABNORMAL ECG WHEN COMPARED WITH ECG OF 04-JUL-2016 10:01, PREMATURE VENTRICULAR COMPLEXES ARE NOW PRESENT Confirmed by DUSTIN KRISHNAMURTHY MD ([id number]) on 07/15/2016 9:57:30 AM Referred By: Confirmed By:DUSTIN KRISHNAMURTHY MD
[2016-07-15] MEDS: APIXABAN 2.5 MG TABLET PO SCH ×3 (10:00→22:40)
[2016-07-15] MEDS: AMINO ACIDS/PROTEIN HYDROLYS 30 ML LIQUID.PKT PO SCH ×3 (10:36→17:30)
--- NOTE | 2016-07-15 10:36 | PN ---
Progress Note (short form) - Note Progress Note: patient to trasnfer to dr parisa carpenter called admitting for sumeet as pcp dr chance and patient from [facility]
[2016-07-15] MEDS: FERROUS SO4 325 MG TABLET (FP) PO SCH (10:37)
[2016-07-15 10:59] LABS: ANISOCYTOSIS 1+; HYPOCHROMIA 1+; MICROCYTOSIS 1+; PLATELET ESTIMATE ADEQUATE (NORMAL); POLYCHROMASIA FEW
--- NOTE | 2016-07-15 12:01 | HP ---
Admitting History and Physical - Primary Care Physician PCP: Vanessa Oneal - Admission Chief Complaint: LEUKOCYTOSIS/RESP ACUTE DISTRESS History of Present Illness: he patient is a 80 year old female with significant past medical history of a- fib, hypertension, hyperlipidemia, and recent perforated intestine s/p exploratory laparotomy (06/15/16) who presents to the ED BIB from [place] with persistent abdominal pain and fever. Patient was seen here in the ER on 06/15 for abdominal pain, where she had an extensive workup including an abdomen CT that revealed a perforated intestine. Patient was admitted and during her admission she had a exploratory laparotomy done by Dr. Wayne and patient was found to have a uterine infection. She was treated, a drainage tube was place, and she was discharged on 07/05. Patient returns for persistent abdominal pain and fever (tmax 102). Patients white count was found to be 18 at [place]. Patient is a poor historian and history is given by son, at bedside. She currently has a drainage tube placed in her mid-abdomen region. History Source: Patient, Medical Record - Past Medical History PATIENT OMBUDSPERSON: Yes: Dementia Cardiovascular: Yes: AFIB, HTN, Hyperlipdemia Renal/: Yes: UTI (hx of ) ...: No Heme/Onc: Yes: Anemia Psych: Yes: Anxiety Musculoskeletal: Yes: Osteoarthritis - Past Surgical History Past Surgical History: Yes: Mastectomy (Right- for Cancer) - Smoking History Smoking history: Never smoked Have you smoked in the past 12 months: No If you are a former smoker, when did you quit?: 1984 - Alcohol/Substance Use Hx Alcohol Use: No Home Medications - Allergies Allergies/Adverse Reactions: Allergies Allergy/AdvReac Type Severity Reaction Status Date / Time Penicillins Allergy Verified 06/15/16 01:05 - Home Medications Home Medications: Ambulatory Orders Digoxin [Lanoxin -] 0.125 mg PO DAILY tablet 01/16/15 Magnesium Oxide [Mag-Ox -] 400 mg PO BID tablet 01/16/15 Multivitamins [Multivit ([facility])] 1 tab PO DAILY tab 01/16/15 Apixaban [Eliquis] 2.5 mg PO BID 05/28/16 Citalopram Hydrobromide [Celexa -] 10 mg PO DAILY 05/28/16 Clonidine HCl 0.1 mg PO BID 05/28/16 Rosuvastatin [Crestor -] 5 mg PO HS tablet 06/01/16 Acetaminophen [Tylenol .Regular Strength -] 650 mg PO Q6H PRN #0 tablet Albuterol 2.5/Ipratropium 0.5 [Duoneb -] 1 amp NEB Q6H PRN #0 amp 07/05/16 Amino Acids/Protein Hydrolys [Prosource No Carb Liquid Pkt] 30 ml PO BID@0800, 1730 packet 07/05/16 Ascorbic Acid [Vitamin C -] 500 mg PO DAILY tablet 07/05/16 Clonazepam [Klonopin -] 0.5 mg PO TID #90 tablet MDD 3 07/05/16 Ferrous Sulfate [Feosol] 325 mg PO DAILY@0800 ud 07/05/16 Folic Acid - 1 mg PO DAILY tablet 07/05/16 Guaifenesin Dm [Robitussin Dm -] 10 ml PO Q8H PRN #0 cup 07/05/16 Lactobacillus Acidophilus [Bacid -] 1 tab PO DAILY tab 07/05/16 Megestrol Acetate Oral Susp [Megace Oral Suspension -] 400 mg PO DAILY cup Metoprolol Tartrate [Lopressor -] 25 mg PO BID tablet 07/05/16 Metronidazole [Flagyl -] 500 mg PO TID tablet 07/05/16 Mirtazapine [Remeron -] 7.5 mg PO HS tablet 07/05/16 Multivitamins [Multivit ([facility])] 1 tab PO DAILY tab 07/05/16 Naph,Mb-Db/K pH,Mbdb [PHOS-NaK PACKET -] 1 packet PO DAILY pow 07/05/16 Nystatin/Triamcinolone Top Cr [Mycolog II -] 1 applic TP BID applic 07/05/16 Acetaminophen [Tylenol .Regular Strength -] 325 mg PO Q6H PRN 07/14/16 Aspirin [ASA -] 81 mg PO DAILY 07/14/16 Docusate Sodium [Colace Oral Solution -] 300 mg PO HS 07/14/16 Review of Systems - Review of Systems Constitutional: reports: Loss of Appetite, Weakness Eyes: reports: No Symptoms HENT: reports: No Symptoms Neck: reports: No Symptoms Cardiovascular: reports: Shortness of Breath Respiratory: reports: SOB, SOB on Exertion Gastrointestinal: reports: Other Genitourinary: reports: Incontinence Musculoskeletal: reports: Muscle Weakness Integumentary: reports: Wound Neurological: reports: Pre-Existing Deficit Endocrine: reports: No Symptoms Hematology/Lymphatic: reports: No Symptoms Physical Examination Vital Signs: Vital Signs Temperature 99.6 F 07/15/16 11:49 Pulse Rate 92 H 07/15/16 10:00 Respiratory Rate 18 07/15/16 10:00 Blood Pressure 141/79 07/15/16 10:00 O2 Sat by Pulse Oximetry (%) 97 07/14/16 22:54 Constitutional: Yes: Mild Distress Eyes: Yes: WNL HENT: Yes: WNL Neck: Yes: WNL Cardiovascular: Yes: Pulse Irregular Respiratory: Yes: On Nasal O2, SOB Gastrointestinal: Yes: Tenderness, Other Renal/: Yes: Other (UTERINE ABSCESS LL JES DRAIN) Musculoskeletal: Yes: Muscle Weakness Extremities: Yes: WNL Edema: No Peripheral Pulses WNL: Yes Integumentary: Yes: WNL Wound/Incision: Yes: Dressing Dry and Intact, Draining Neurological: Yes: Pre-Existing Deficit ...Motor Strength: LLE, RLE Psychiatric: Yes: Agitated Labs: CBC, BMP 07/15/16 07:40 07/15/16 07:40 Imaging - Results Chest X-ray: Report Reviewed Problem List - Problems (1) Fever Code(s): R50.9 - FEVER, UNSPECIFIED (2) Severe sepsis Code(s): A41.9 - SEPSIS, UNSPECIFIED ORGANISM R65.20 - SEVERE SEPSIS WITHOUT SEPTIC SHOCK (3) Afib Code(s): I48.91 - UNSPECIFIED ATRIAL FIBRILLATION (4) Anemia Code(s): D64.9 - ANEMIA, UNSPECIFIED Qualifiers: Other causes of anemia: chronic disease, other (5) Anxiety Code(s): F41.9 - ANXIETY DISORDER, UNSPECIFIED (6) Uterine abscess Code(s): N71.9 - INFLAMMATORY DISEASE OF UTERUS, UNSPECIFIED Assessment/Plan DISCUSSED WITH DR BECERRIL PROTECTION MANAGER, TO DETERMINE IF HYSTERECTOMY IS POSSIBLE THIS WOULD BE THE BEST THERAPY/TREAMENT FOR THE INFECTION. ID CONSULT GI FOR POSSIBLE GTUBE ON HOLD FOR NOW UNTIL PROTECTION MANAGER COMPLETES UTERINE ABSCESS WORKUP IV ABX CALORIE COUNT
[2016-07-15] MEDS ORDERED: VANCOMYCIN 1 GRAM (PRE-DOCKED) 250 ML IVPB ONE (12:03)
--- NOTE | 2016-07-15 12:06 | PN ---
Progress Note (short form) - Note Progress Note: ID Consult dictated Fever/leukocytosis- possible sepsis secondary to intra-abdominal focus Pelvic abscess PCN allergy Await blood c/s Send c/s from [facility] drain Surgical follow up Empiric cefepime/ flagyl + stat dose vancomycin
[2016-07-15] MEDS: CEFEPIME 1 GM/100 ML BAG PRE-DOCKED IVPB SCH ×2 (12:48→18:12)
[2016-07-15] MEDS: CITALOPRAM HYDROBROMIDE 10 MG TABLET (FP) PO SCH (12:52)
[2016-07-15] MEDS: METOPROLOL TARTRATE 25 MG TABLET (FP) PO SCH ×2 (12:52→22:40)
[2016-07-15] MEDS: LACTOBACILLUS ACIDOPHILUS 1 EACH TAB (FP) PO SCH (12:54)
[2016-07-15] MEDS: ASCORBIC ACID 500 MG TABLET (FP) PO SCH (12:54)
[2016-07-15] MEDS: MAGNESIUM OXIDE 400 MG TABLET (FP) PO SCH ×2 (12:54→22:40)
[2016-07-15] MEDS: MULTIVITAMINS (DAILY MVI) TABLET (FP) PO SCH (12:54)
[2016-07-15] MEDS: ASPIRIN 81 MG CHEWABLE TABLETS PO SCH (12:55)
[2016-07-15] MEDS: FOLIC ACID 1 MG TABLET (FP) PO SCH (12:56)
[2016-07-15] MEDS: NYSTATIN/TRIAMCINOLONE TOPICAL CREAM 15 GM TUBE TP SCH ×2 (13:28→22:41)
[2016-07-15] MEDS: MEGESTROL ACETATE 400 MG/10 ML UNIT DOSE CUP PO SCH (13:56)
--- NOTE | 2016-07-15 16:17 | CON.PULM ---
Consult Consult Specialty:: Pulmonary Referred by:: PMD - History of Present Illness History of Present Illness: The patient is a 80 year old female with significant past medical history of a- fib, hypertension, hyperlipidemia, and recent perforated intestine s/p exploratory laparotomy (06/15/16) who presents to the ED BIBA from [place] with persistent abdominal pain and fever. Patient was seen here in the ER on 06/15 for abdominal pain, where she had an extensive workup including an abdomen CT that revealed a perforated intestine. Patient was admitted and during her admission she had a exploratory laparotomy done by Dr. Wayne and patient was found to have a uterine infection. She was treated, a drainage tube was place, and she was discharged on 07/05. Patient returns for persistent abdominal pain and fever (tmax 102). Patients white count was found to be 18 at [place] She currently has a drainage tube placed in her mid-abdomen region. 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: Yes: Dementia Cardio/Vascular: Yes: AFIB, HTN, Hyperlipdemia Renal/: Yes: UTI (hx of ) ...: No Psych: Yes: Anxiety Musculoskeletal: Yes: Osteoarthritis - Past Surgical History Past Surgical History: Yes: Mastectomy (Right- for Cancer) - Alcohol/Substance Use Hx Alcohol Use: No - Smoking History Smoking history: Never smoked Have you smoked in the past 12 months: No If you are a former smoker, when did you quit?: 1984 - Social History Usual Living Arrangement: Assisted Living Home Medications - Allergies Allergies/Adverse Reactions: Allergies Allergy/AdvReac Type Severity Reaction Status Date / Time Penicillins Allergy Verified 06/15/16 01:05 - Home Medications Home Medications: Ambulatory Orders Digoxin [Lanoxin -] 0.125 mg PO DAILY tablet 01/16/15 Magnesium Oxide [Mag-Ox -] 400 mg PO BID tablet 01/16/15 Multivitamins [Multivit ([facility] Formul[facility])] 1 tab PO DAILY tab 01/16/15 Apixaban [Eliquis] 2.5 mg PO BID 05/28/16 Citalopram Hydrobromide [Celexa -] 10 mg PO DAILY 05/28/16 Clonidine HCl 0.1 mg PO BID 05/28/16 Rosuvastatin [Crestor -] 5 mg PO HS tablet 06/01/16 Acetaminophen [Tylenol .Regular Strength -] 650 mg PO Q6H PRN #0 tablet Albuterol 2.5/Ipratropium 0.5 [Duoneb -] 1 amp NEB Q6H PRN #0 amp 07/05/16 Amino Acids/Protein Hydrolys [Prosource No Carb Liquid Pkt] 30 ml PO BID@0800, 1730 packet 07/05/16 Ascorbic Acid [Vitamin C -] 500 mg PO DAILY tablet 07/05/16 Clonazepam [Klonopin -] 0.5 mg PO TID #90 tablet MDD 3 07/05/16 Ferrous Sulfate [Feosol] 325 mg PO DAILY@0800 ud 07/05/16 Folic Acid - 1 mg PO DAILY tablet 07/05/16 Guaifenesin Dm [Robitussin Dm -] 10 ml PO Q8H PRN #0 cup 07/05/16 Lactobacillus Acidophilus [Bacid -] 1 tab PO DAILY tab 07/05/16 Megestrol Acetate Oral Susp [Megace Oral Suspension -] 400 mg PO DAILY cup Metoprolol Tartrate [Lopressor -] 25 mg PO BID tablet 07/05/16 Metronidazole [Flagyl -] 500 mg PO TID tablet 07/05/16 Mirtazapine [Remeron -] 7.5 mg PO HS tablet 07/05/16 Multivitamins [Multivit ([facility])] 1 tab PO DAILY tab 07/05/16 Naph,Mb-Db/K pH,Mbdb [PHOS-NaK PACKET -] 1 packet PO DAILY pow 07/05/16 Nystatin/Triamcinolone Top Cr [Mycolog II -] 1 applic TP BID applic 07/05/16 Acetaminophen [Tylenol .Regular Strength -] 325 mg PO Q6H PRN 07/14/16 Aspirin [ASA -] 81 mg PO DAILY 07/14/16 Docusate Sodium [Colace Oral Solution -] 300 mg PO HS 07/14/16 Family Disease History - Family Disease History Family History: Unremarkable Review of Systems Unable to obtain ROS, reason: UNABLE Physical Exam Vital Sings: Vital Signs Temperature 98.9 F 07/15/16 14:53 Pulse Rate 82 07/15/16 14:59 Respiratory Rate 18 07/15/16 14:53 Blood Pressure 116/69 07/15/16 14:53 O2 Sat by Pulse Oximetry (%) 96 07/15/16 14:59 Constitutional: Yes: Cachectic, Pallor Eyes: No: Sclera Icterus HENT: Yes: Atraumatic Neck: Yes: Trachea Midline Cardiovascular: Yes: Regular Rate and Rhythm, S1, S2 Respiratory: Yes: Diminished Gastrointestinal: Yes: Soft, Other (DRAINAGE TUBE IN PLACE) Edema: No Labs: CBC, BMP 07/15/16 07:40 07/15/16 07:40 REST REVIEWED Imaging - Results Chest X-ray: Image Reviewed Cat Scan: Image Reviewed EKG: Report Reviewed Problem List - Problems (1) Anemia Code(s): D64.9 - ANEMIA, UNSPECIFIED Qualifiers: Other causes of anemia: chronic disease, other (2) Bowel perforation Code(s): K63.1 - PERFORATION OF INTESTINE (NONTRAUMATIC) (3) Pleural effusion Code(s): J90 - PLEURAL EFFUSION, NOT ELSEWHERE CLASSIFIED (4) CHF (congestive heart failure) Code(s): I50.9 - HEART FAILURE, UNSPECIFIED Assessment/Plan BILATERAL EFFUSIONS ARE LIKELY DUE TO RECENT ABDOMINAL SURGERY/VOLUME ISSUES AND UNDERLYING CHF/SEPSIS DOES NOT APPEAR TO BE CAUSING RESPIRATORY DIFFICULTY WOULD CONTINUE O2 SUPPLEMENTATION/PANCULTURE/ANTIBIOTICS/SURG F/U GOALS OF CARE TO BE DETERMINED WILL FOLLOW Niles TUCKER MD
[2016-07-15] MEDS: AMINO ACIDS 4.25%/D5W 1,000 ML IV SCH (17:13)
[2016-07-15] MEDS ORDERED: ONDANSETRON 4 MG/2 ML VIAL IVPB PRN (18:24)
--- NOTE | 2016-07-15 20:20 | CON.GI ---
Consult Consult Specialty:: GASTROENTEROLOGY Reason for Consultation:: FAILED CALORIE COUNT - History of Present Illness Chief Complaint: FEVER AND PAIN History of Present Illness: 80 YEAR OLD FEMALE RECENT DISCHARGE FROM [facility] FOR PERFORATED OF INFECTED UTERUS. PATIENT DID POORLY. HYSTERECTOMY NOT AN OPTION, HAS SURGICAL DRAIN IN PELVIS THAT CONTINUES TO DRAIN PURULENT DISCHARGE FOR OVER ONE MONTH. SENT BACK TO [facility] FOR ABDOMINAL PAIN AND FEVERS. AT LONG-TERM DID NOT MEET CALORIE GOALS. CONSULTED LAST ADMISSION TWICE. THE LAST VISIT WAS FOR PEG WHICH WAS FELT NOT TO BE THE BEST OPTION DUE TO CONTINUED INTRAPERITONEAL INFECTION. 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: Yes: Dementia Cardio/Vascular: Yes: AFIB, HTN, Hyperlipdemia Gastrointestinal: Yes: Other (PERITONITIS, RUPTURED INFECTED UTERUS) Renal/: Yes: UTI (hx of ) ...: No Psych: Yes: Anxiety Musculoskeletal: Yes: Osteoarthritis - Past Surgical History Past Surgical History: Yes: Mastectomy (Right- for Cancer) Additional Surgical History: EX LAP - Alcohol/Substance Use Hx Alcohol Use: No - Smoking History Smoking history: Never smoked Have you smoked in the past 12 months: No If you are a former smoker, when did you quit?: 1984 - Social History Usual Living Arrangement: Assisted Living Home Medications - Allergies Allergies/Adverse Reactions: Allergies Allergy/AdvReac Type Severity Reaction Status Date / Time Penicillins Allergy Verified 06/15/16 01:05 - Home Medications Home Medications: Ambulatory Orders Digoxin [Lanoxin -] 0.125 mg PO DAILY tablet 01/16/15 Magnesium Oxide [Mag-Ox -] 400 mg PO BID tablet 01/16/15 Multivitamins [Multivit ([facility] Form[facility])] 1 tab PO DAILY tab 01/16/15 Apixaban [Eliquis] 2.5 mg PO BID 05/28/16 Citalopram Hydrobromide [Celexa -] 10 mg PO DAILY 05/28/16 Clonidine HCl 0.1 mg PO BID 05/28/16 Rosuvastatin [Crestor -] 5 mg PO HS tablet 06/01/16 Acetaminophen [Tylenol .Regular Strength -] 650 mg PO Q6H PRN #0 tablet Albuterol 2.5/Ipratropium 0.5 [Duoneb -] 1 amp NEB Q6H PRN #0 amp 07/05/16 Amino Acids/Protein Hydrolys [Prosource No Carb Liquid Pkt] 30 ml PO BID@0800, 1730 packet 07/05/16 Ascorbic Acid [Vitamin C -] 500 mg PO DAILY tablet 07/05/16 Clonazepam [Klonopin -] 0.5 mg PO TID #90 tablet MDD 3 07/05/16 Ferrous Sulfate [Feosol] 325 mg PO DAILY@0800 ud 07/05/16 Folic Acid - 1 mg PO DAILY tablet 07/05/16 Guaifenesin Dm [Robitussin Dm -] 10 ml PO Q8H PRN #0 cup 07/05/16 Lactobacillus Acidophilus [Bacid -] 1 tab PO DAILY tab 07/05/16 Megestrol Acetate Oral Susp [Megace Oral Suspension -] 400 mg PO DAILY cup Metoprolol Tartrate [Lopressor -] 25 mg PO BID tablet 07/05/16 Metronidazole [Flagyl -] 500 mg PO TID tablet 07/05/16 Mirtazapine [Remeron -] 7.5 mg PO HS tablet 07/05/16 Multivitamins [Multivit ([facility] Form[facility])] 1 tab PO DAILY tab 07/05/16 Naph,Mb-Db/K pH,Mbdb [PHOS-NaK PACKET -] 1 packet PO DAILY pow 07/05/16 Nystatin/Triamcinolone Top Cr [Mycolog II -] 1 applic TP BID applic 07/05/16 Acetaminophen [Tylenol .Regular Strength -] 325 mg PO Q6H PRN 07/14/16 Aspirin [ASA -] 81 mg PO DAILY 07/14/16 Docusate Sodium [Colace Oral Solution -] 300 mg PO HS 07/14/16 Family Disease History - Family Disease History Family History: Unable to Obtain Review of Systems Unable to obtain ROS, reason: DEMENTIA Physical Exam-GI Vital Signs: Vital Signs Temperature 98.6 F 07/15/16 18:00 Pulse Rate 90 07/15/16 18:00 Respiratory Rate 16 07/15/16 18:00 Blood Pressure 151/80 07/15/16 18:00 O2 Sat by Pulse Oximetry (%) 96 07/15/16 14:59 Constitutional: Yes: Cachectic, Other (CONFUSED) Eyes: Yes: Conjunctiva Clear HENT: Yes: Normocephalic Neck: Yes: Supple Cardiovascular: Yes: Regular Rate and Rhythm, Other (MASTECTOMY) Respiratory: Yes: Rales, Rhonchi, Wheezes Gastrointestinal Inspection: Yes: Distention ...Auscultate: Yes: Hypoactive Bowel Sounds ...Palpate: Yes: Tenderness, Other (DRAINAGE TUBE + PURULENT) Extremities: Yes: WNL Psychiatric: Yes: Agitated, Other (CONFUSED) Labs: CBC, BMP 07/15/16 07:40 07/15/16 07:40 INR, PTT INR 1.96 (0.82-1.09) H 07/15/16 07:40 Problem List - Problems (1) Poor nutrition Assessment/Plan: POOR NUTRITON IS MULTIFRACTORIAL SEPSIS, CHRONIC INFECTION, DEMENTIA ETC. WOULD NEED TO SEE HOW PATIENT FAIRS WITH TREATMENT OF CURRENT CONDITION. WILL SPEAK WITH THE FAMILY IN A FEW DAYS IF PATIENT IMPROVES TO GIVE THEM DETAILS ON THE RISKS AND BENEFITS OF PEG TUBE PLACEMENT. SHE HAD PULL HER NGT OUT MULTIPLE TIMES LAST ADMISSION AND WOULD CONTINUE THE CLINIMIX NOW WITH FAT EMULSION. ANTIBIOTICS PER ID PROGNOSIS IS GUARDED Code(s): E63.9 - NUTRITIONAL DEFICIENCY, UNSPECIFIED (2) Sepsis Code(s): A41.9 - SEPSIS, UNSPECIFIED ORGANISM Qualifiers: Sepsis type: Escherichia coli Qualified Code(s): A41.51 - Sepsis due to Escherichia coli [E. coli] (3) Fever Code(s): R50.9 - FEVER, UNSPECIFIED (4) Intra-abdominal abscess Code(s): K65.1 - PERITONEAL ABSCESS (5) Pelvic fluid collection Code(s): R18.8 - OTHER ASCITES (6) Afib Code(s): I48.91 - UNSPECIFIED ATRIAL FIBRILLATION (7) Dementia Code(s): F03.90 - UNSPECIFIED DEMENTIA WITHOUT BEHAVIORAL DISTURBANCE
[2016-07-15] MEDS: METRONIDAZOLE 500 MG PREMIXED 100 ML IVPB SCH (21:46)
[2016-07-15] MEDS: FAT EMULSIONS 20% 250 ML PREMIX INFUS.BAG IV SCH (21:46)
[2016-07-15] MEDS ORDERED: PT OWN MED DRAWER 7, Y5N ONE (22:03)
[2016-07-15] MEDS: DOCUSATE NA 100 MG/10 ML UNIT-DOSE CUPS PO SCH (22:40)
[2016-07-15] MEDS: MIRTAZAPINE 15 MG TABLET (FP) PO SCH (22:40)
[2016-07-16] MEDS: METRONIDAZOLE 500 MG PREMIXED 100 ML IVPB SCH ×3 (02:29→17:48)
[2016-07-16] MEDS: CEFEPIME 1 GM/100 ML BAG PRE-DOCKED IVPB SCH ×3 (02:29→17:48)
[2016-07-16] MEDS: clonazePAM 0.5 MG TABLET PO SCH ×4 (06:45→21:11)
[2016-07-16] MEDS ORDERED: PT OWN MED DRAWER 7, Y5N ONE (08:02)
[2016-07-16] MEDS: FERROUS SO4 325 MG TABLET (FP) PO SCH ×2 (08:30→19:05)
[2016-07-16] MEDS: AMINO ACIDS/PROTEIN HYDROLYS 30 ML LIQUID.PKT PO SCH ×2 (08:30→17:48)
[2016-07-16] MEDS: CITALOPRAM HYDROBROMIDE 10 MG TABLET (FP) PO SCH (09:26)
[2016-07-16] MEDS: FOLIC ACID 1 MG TABLET (FP) PO SCH ×2 (09:28→19:06)
[2016-07-16] MEDS: DIGOXIN 0.125 MG TABLET (FP) PO SCH ×2 (09:28→19:06)
[2016-07-16] MEDS: MAGNESIUM OXIDE 400 MG TABLET (FP) PO SCH ×3 (09:28→21:11)
[2016-07-16] MEDS: MULTIVITAMINS (DAILY MVI) TABLET (FP) PO SCH ×3 (09:28→19:14)
[2016-07-16] MEDS: ASPIRIN 81 MG CHEWABLE TABLETS PO SCH ×2 (09:28→19:08)
[2016-07-16] MEDS: ASCORBIC ACID 500 MG TABLET (FP) PO SCH (09:28)
[2016-07-16] MEDS: METOPROLOL TARTRATE 25 MG TABLET (FP) PO SCH ×3 (09:28→21:10)
[2016-07-16] MEDS: MEGESTROL ACETATE 400 MG/10 ML UNIT DOSE CUP PO SCH ×2 (09:29→19:13)
[2016-07-16] MEDS: LACTOBACILLUS ACIDOPHILUS 1 EACH TAB (FP) PO SCH ×2 (09:29→19:06)
[2016-07-16] MEDS: NYSTATIN/TRIAMCINOLONE TOPICAL CREAM 15 GM TUBE TP SCH ×2 (09:30→22:39)
[2016-07-16] MEDS: APIXABAN 2.5 MG TABLET PO SCH ×3 (09:31→21:11)
--- NOTE | 2016-07-16 09:43 | PN ---
Progress Note, Physician Chief Complaint: GOT ANNOYED WITH ME & STOP ANSWERING QUESTIONS - Current Medication List Current Medications: Active Medications Acetaminophen (Tylenol -) 650 mg PO Q6H PRN PRN Reason: FEVER OR PAIN Albuterol/Ipratropium (Duoneb -) 1 amp NEB Q6H PRN PRN Reason: SHORTNESS OF BREATH Amino Acids (Prosource No Carb Liquid Pkt) 30 ml PO BID@0800,1730 [facility] Last Admin: 07/16/16 08:30 Dose: 30 ml Apixaban (Eliquis -) 2.5 mg PO BID [facility] Last Admin: 07/16/16 09:31 Dose: 2.5 mg Ascorbic Acid (Vitamin C -) 500 mg PO DAILY [facility] Last Admin: 07/16/16 09:28 Dose: 500 mg Aspirin (Asa -) 81 mg PO DAILY [facility] Last Admin: 07/16/16 09:28 Dose: 81 mg Cefepime HCl (Maxipime 1gm Ivpb Pre-Docked) 1 gm IVPB Q8H-IV DANA PRN Reason: Protocol Last Admin: 07/16/16 09:29 Dose: 1 gm Citalopram Hydrobromide (Celexa -) 10 mg PO DAILY [facility] Last Admin: 07/16/16 09:26 Dose: 10 mg Clonazepam (Klonopin -) 0.5 mg PO TID [facility] Last Admin: 07/16/16 06:45 Dose: Not Given Clonidine HCl (Catapres Tts Patch -) 0.1 mg TD Q7D@1000 [facility] Digoxin (Lanoxin -) 0.125 mg PO Q2D [facility] Last Admin: 07/16/16 09:28 Dose: 0.125 mg Docusate Sodium (Colace Liquid -) 300 mg PO HS [facility] Last Admin: 07/15/16 22:40 Dose: 300 mg Fat Emulsion Intravenous (Intralipid -) 250 ml IV DAILY@2200 [facility] Last Admin: 07/15/16 21:46 Dose: 250 ml Ferrous Sulfate (Feosol -) 325 mg PO DAILY@0800 [facility] Last Admin: 07/16/16 08:30 Dose: 325 mg Folic Acid (Folic Acid -) 1 mg PO DAILY [facility] Last Admin: 07/16/16 09:28 Dose: 1 mg Metronidazole (Flagyl 500mg Premixed Ivpb -) 100 mls @ 100 mls/hr IVPB Q8H-IV [facility] Last Admin: 07/16/16 09:29 Dose: 100 mls/hr Amino Acids (Clinimix -) 1,000 mls @ 42 mls/hr IV Q24H [facility] Last Admin: 07/15/16 17:13 Dose: 42 mls/hr Lactobacillus Acidophilus (Bacid -) 1 tab PO DAILY [facility] Last Admin: 07/16/16 09:29 Dose: 1 tab Magnesium Oxide (Mag-Ox -) 400 mg PO BID [facility] Last Admin: 07/16/16 09:28 Dose: 400 mg Megestrol Acetate (Megace Oral Suspension -) 400 mg PO DAILY [facility] Last Admin: 07/16/16 09:29 Dose: 400 mg Metoprolol Tartrate (Lopressor -) 25 mg PO BID [facility] Last Admin: 07/16/16 09:28 Dose: 25 mg Mirtazapine (Remeron -) 7.5 mg PO HS [facility] Last Admin: 07/15/16 22:40 Dose: 7.5 mg Multivitamins/Minerals/Vitamin C (Tab-A-Vit -) 1 tab PO DAILY [facility] Last Admin: 07/16/16 09:28 Dose: 1 tab Nystatin/Triamcinolone Acetonide (Mycolog Ii Cream -) 1 applic TP BID [facility] Last Admin: 07/16/16 09:30 Dose: 1 applic Ondansetron HCl (Zofran Injection) 4 mg IVPB Q4H PRN PRN Reason: NAUSEA AND/OR VOMITING Last Admin: 07/15/16 19:09 Dose: 4 mg - Objective Vital Signs: Vital Signs Temperature 98.4 F 07/16/16 06:00 Pulse Rate 88 07/16/16 09:28 Respiratory Rate 18 07/16/16 06:00 Blood Pressure 108/58 07/16/16 06:00 O2 Sat by Pulse Oximetry (%) 94 L 07/15/16 21:00 Cardiovascular: Yes: WNL Respiratory: Yes: WNL Gastrointestinal: Yes: WNL Edema: No Labs: CBC, BMP 07/15/16 07:40 07/15/16 07:40 INR, PTT INR 1.96 (0.82-1.09) H 07/15/16 07:40 Problem List - Problems (1) CHF (congestive heart failure) Code(s): I50.9 - HEART FAILURE, UNSPECIFIED (2) Fever Code(s): R50.9 - FEVER, UNSPECIFIED (3) Afib Code(s): I48.91 - UNSPECIFIED ATRIAL FIBRILLATION (4) HTN (hypertension) Code(s): I10 - ESSENTIAL (PRIMARY) HYPERTENSION Qualifiers: Hypertension type: essential hypertension Qualified Code(s): I10 - Essential (primary) hypertension (5) Intra-abdominal abscess Code(s): K65.1 - PERITONEAL ABSCESS Assessment/Plan (1) Fever Code(s): R50.9 - FEVER, UNSPECIFIED (2) Severe sepsis Code(s): A41.9 - SEPSIS, UNSPECIFIED ORGANISM R65.20 - SEVERE SEPSIS WITHOUT SEPTIC SHOCK (3) Afib Code(s): I48.91 - UNSPECIFIED ATRIAL FIBRILLATION (4) Anemia Code(s): D64.9 - ANEMIA, UNSPECIFIED Qualifiers: Other causes of anemia: chronic disease, other (5) Anxiety Code(s): F41.9 - ANXIETY DISORDER, UNSPECIFIED (6) Uterine abscess Code(s): N71.9 - INFLAMMATORY DISEASE OF UTERUS, UNSPECIFIED Assessment/Plan DISCUSSED WITH DR BECERRIL OUTBOARD MOTORBOAT OPERATOR, TO DETERMINE IF HYSTERECTOMY IS POSSIBLE THIS WOULD BE THE BEST THERAPY/TREAMENT FOR THE INFECTION. ID CONSULT APPRECIATED GI FOR POSSIBLE GTUBE ON HOLD FOR NOW UNTIL OUTBOARD MOTORBOAT OPERATOR COMPLETES UTERINE ABSCESS WORKUP IV ABX CALORIE COUNT - SURGERY CONSULT - CTAP (C-) PASTOR GATES
--- NOTE | 2016-07-16 10:17 | CONS ---
DATE OF CONSULTATION: DATE OF DICTATION: 07/15/2016 HISTORY OF PRESENT ILLNESS: The patient is an 80-year-old female who is evaluated for fever and leukocytosis. Patient was recently discharged from [facility] after a 3-week hospitalization for a pelvic abscess. She had undergone an exploratory laparotomy on June 15, 2016, at which time she was found to have a pelvic abscess of unclear source. She ultimately underwent a percutaneous drainage procedure. She was discharged to the [place] [facility] with a drainage catheter in place and was placed on oral antibiotic therapy after she received a course of IV therapy. She now returns on July 14, 2016, with worsening abdominal pain and fever. She was noted at the [place] [facility] to have a fever of 105 at [facility]. Temperature was recorded at 101.1 and white blood cell count of 22,000. At the present time, she is awake, however, she is confused. She cannot give a reliable history secondary to her dementia. PAST MEDICAL HISTORY: Positive for pelvic abscess secondary to GI or focus, history of breast cancer, atrial fibrillation, hypertension, hyperlipidemia, dementia. ALLERGIES: To PENICILLIN. She has tolerated cephalosporins in the past. SOCIAL HISTORY: She lives in a group home facility, is a former smoker. SYSTEMS REVIEW: Neurologic: Positive for dementia. Cardiac: Negative for chest pain or palpitations. Respiratory: Negative for cough or sputum production. Gastrointestinal: As per HPI. Genitourinary: As per HPI. LABORATORY DATA: White count on admission 22.7, hematocrit 28.6, platelet count 399. BUN 16, creatinine 0.8. Liver enzymes normal. Urinalysis with 49 white cells. PHYSICAL EXAMINATION: General: The patient is awake, however, she is confused. Vital signs: Temperature 98.2, maximum temperature 101.1, blood pressure 141/79, pulse 92 and regular, respirations 18 per minute. HEENT: Sclerae anicteric. Heart: Heart sounds S1, S2. Lungs: Grossly clear. No rhonchi, rales, or wheezing. Abdomen: Soft. No tenderness elicited. No mass, rebound, or rigidity. Drainage catheter is in place in the left lower quadrant. There is cloudy greenish fluid in the Arian-Briceno drain. Extremities: Negative for edema. IMPRESSION: 1. Fever/leukocytosis, possible sepsis secondary to intraabdominal/intrapelvic focus. 2. Pelvic abscess status post drainage. 3. PENICILLIN allergy. Await blood cultures, send drainage fluid for culture, empiric antibiotic coverage in this PENICILLIN-allergic patient with cefepime, Flagyl, and stat dose of vancomycin, surgical followup. Further recommendations pending cultures. Will follow. Thank you for the kind referral. DUSTIN DAS M.D. APURVA/[id number]
--- NOTE | 2016-07-16 11:14 | PN ---
Progress Note (short form) - Note Progress Note: lethargic not eating moist cough Vital Signs Period Temp Pulse Resp BP Sys/Palafox Pulse Ox Last 24 Hr 98.4 F-99.6 F 82-99 16-18 108-162/58-81 94-96 cor-rrr lungs bilateral rhonchi abd- soft, +JES with cloudy drainage ext no edema CBC, BMP 07/15/16 07:40 07/15/16 07:40 Microbiology 07/14/16 19:50 Urine - Urine - Catheterized Urine Culture - Preliminary Group D Strep Or Entero Coccus 07/14/16 19:40 Blood - Peripheral Venous Blood Culture - Preliminary NO GROWTH OBTAINED AFTER 24 HOURS, INCUBATION TO CONTINUE FOR 4 DAYS. 07/14/16 19:40 Blood - Peripheral Venous Blood Culture - Preliminary NO GROWTH OBTAINED AFTER 24 HOURS, INCUBATION TO CONTINUE FOR 4 DAYS. Current Medications Acetaminophen (Tylenol -) 650 mg PO Q6H PRN PRN Reason: FEVER OR PAIN Albuterol/Ipratropium (Duoneb -) 1 amp NEB Q6H PRN PRN Reason: SHORTNESS OF BREATH Amino Acids (Prosource No Carb Liquid Pkt) 30 ml PO BID@0800,1730 [facility] Last Admin: 07/16/16 08:30 Dose: Not Given Apixaban (Eliquis -) 2.5 mg PO BID [facility] Last Admin: 07/16/16 09:31 Dose: Not Given Ascorbic Acid (Vitamin C -) 500 mg PO DAILY [facility] Last Admin: 07/16/16 09:28 Dose: Not Given Aspirin (Asa -) 81 mg PO DAILY [facility] Last Admin: 07/16/16 09:28 Dose: Not Given Cefepime HCl (Maxipime 1gm Ivpb Pre-Docked) 1 gm IVPB Q8H-IV DANA PRN Reason: Protocol Last Admin: 07/16/16 09:29 Dose: 1 gm Citalopram Hydrobromide (Celexa -) 10 mg PO DAILY [facility] Last Admin: 07/16/16 09:26 Dose: Not Given Clonazepam (Klonopin -) 0.5 mg PO TID [facility] Last Admin: 07/16/16 06:45 Dose: Not Given Clonidine HCl (Catapres Tts Patch -) 0.1 mg TD Q7D@1000 DANA Digoxin (Lanoxin -) 0.125 mg PO Q2D [facility] Last Admin: 07/16/16 09:28 Dose: 0.125 mg Docusate Sodium (Colace Liquid -) 300 mg PO HS [facility] Last Admin: 07/15/16 22:40 Dose: 300 mg Fat Emulsion Intravenous (Intralipid -) 250 ml IV DAILY@2200 [facility] Last Admin: 07/15/16 21:46 Dose: 250 ml Ferrous Sulfate (Feosol -) 325 mg PO DAILY@0800 [facility] Last Admin: 07/16/16 08:30 Dose: Not Given Folic Acid (Folic Acid -) 1 mg PO DAILY [facility] Last Admin: 07/16/16 09:28 Dose: Not Given Metronidazole (Flagyl 500mg Premixed Ivpb -) 100 mls @ 100 mls/hr IVPB Q8H-IV [facility] Last Admin: 07/16/16 09:29 Dose: 100 mls/hr Amino Acids (Clinimix -) 1,000 mls @ 42 mls/hr IV Q24H [facility] Last Admin: 07/15/16 17:13 Dose: 42 mls/hr Lactobacillus Acidophilus (Bacid -) 1 tab PO DAILY [facility] Last Admin: 07/16/16 09:29 Dose: Not Given Magnesium Oxide (Mag-Ox -) 400 mg PO BID [facility] Last Admin: 07/16/16 09:28 Dose: Not Given Megestrol Acetate (Megace Oral Suspension -) 400 mg PO DAILY [facility] Last Admin: 07/16/16 09:29 Dose: Not Given Metoprolol Tartrate (Lopressor -) 25 mg PO BID [facility] Last Admin: 07/16/16 09:28 Dose: Not Given Mirtazapine (Remeron -) 7.5 mg PO [facility] Last Admin: 07/15/16 22:40 Dose: 7.5 mg Multivitamins/Minerals/Vitamin C (Tab-A-Vit -) 1 tab PO DAILY [facility] Last Admin: 07/16/16 09:28 Dose: 1 tab Nystatin/Triamcinolone Acetonide (Mycolog Ii Cream -) 1 applic TP BID [facility] Last Admin: 07/16/16 09:30 Dose: 1 applic Ondansetron HCl (Zofran Injection) 4 mg IVPB Q4H PRN PRN Reason: NAUSEA AND/OR VOMITING Last Admin: 07/15/16 19:09 Dose: 4 mg a/p sepsis history of pelvic abscess uti-enterococcus pen allergy advanced age continue vanco/cefepime/flagyl abdominal imaging gyne f/u- d/w Dr Mcginnis
[2016-07-16] MEDS ORDERED: VANCOMYCIN 1,000 MG in DEXTROSE 5%-WATER - 250 ML IVPB SCH (11:15)
[2016-07-16] MEDS: VANCOMYCIN 1 GRAM (PRE-DOCKED) 1,000 MG/250 ML BAG IVPB SCH (15:22)
--- NOTE | 2016-07-16 15:24 | PN ---
Progress Note (short form) - Note Progress Note: PULMONARY APPEARS MILDLY TACHYPNEIC/AROUSABLE REMAINS AFEBRILE SCATTERED B/L RHONCHI S1S2 SOFT NO EDEMA LABS/MEDS/NOTES/MICRO REVIEWED (1) Anemia Code(s): D64.9 - ANEMIA, UNSPECIFIED Qualifiers: Other causes of anemia: chronic disease, other (2) Bowel perforation Code(s): K63.1 - PERFORATION OF INTESTINE (NONTRAUMATIC) (3) Pleural effusion Code(s): J90 - PLEURAL EFFUSION, NOT ELSEWHERE CLASSIFIED (4) CHF (congestive heart failure) Code(s): I50.9 - HEART FAILURE, UNSPECIFIED Assessment/Plan WOULD CONTINUE O2 SUPPLEMENTATION/UTI ENTEROCOCCUS/ANTIBIOTICS/SURG /IDF/U GOALS OF CARE TO BE DETERMINED PROGNOSIS POOR WILL FOLLOW Problem List - Problems (1) Anemia Code(s): D64.9 - ANEMIA, UNSPECIFIED Qualifiers: Other causes of anemia: chronic disease, other (2) Bowel perforation Code(s): K63.1 - PERFORATION OF INTESTINE (NONTRAUMATIC) (3) Pleural effusion Code(s): J90 - PLEURAL EFFUSION, NOT ELSEWHERE CLASSIFIED (4) CHF (congestive heart failure) Code(s): I50.9 - HEART FAILURE, UNSPECIFIED
[2016-07-16] MEDS: AMINO ACIDS 4.25%/D5W 1,000 ML IV SCH (18:53)
[2016-07-16] MEDS: DOCUSATE NA 100 MG/10 ML UNIT-DOSE CUPS PO SCH ×2 (19:08→21:11)
[2016-07-16] MEDS: FAT EMULSIONS 20% 250 ML PREMIX INFUS.BAG IV SCH (21:04)
[2016-07-16] MEDS: MIRTAZAPINE 15 MG TABLET (FP) PO SCH (22:15)
[2016-07-17] MEDS: CEFEPIME 1 GM/100 ML BAG PRE-DOCKED IVPB SCH ×3 (01:07→18:55)
[2016-07-17] MEDS: METRONIDAZOLE 500 MG PREMIXED 100 ML IVPB SCH ×3 (03:05→18:55)
[2016-07-17] MEDS: clonazePAM 0.5 MG TABLET PO SCH ×3 (06:32→22:20)
[2016-07-17 07:30] LABS: BASOPHIL 0.3 % (0-2.0); EOSINOPHIL 2.2 % (0-4.5); MCH 27.7 pg (25.7-33.7); MCHC 31.8 g/dl (32.0-36.0); MEAN CELL VOLUME 87.1 fl (80-96); MEAN PLT VOLUME 7.6 fl (7.5-11.1); NEUTROPHILS 81.7 % (42.8-82.8); PLATELET COUNT 352 K/MM3 (134-434); RDW 15.4 % (11.6-15.6); WHITE BLOOD COUNT 15.2 K/mm3 (4.0-10.0)
[2016-07-17 08:30] LABS: ALBUMIN 1.9 g/dl (3.4-5.0); ANION GAP 8 (8-16); CALCIUM 7.9 mg/dL (8.5-10.1); CO2 26 mmol/L (21-32); GLUCOSE,RANDOM 103 mg/dL (74-106)
[2016-07-17 08:34] LABS: ALK PHOS 44 U/L (45-117); BILIRUBIN,TOTAL 0.2 mg/dL (0.2-1.0); CREATININE 0.8 mg/dL (0.55-1.02); SGOT/AST 10 U/L (15-37); SGPT/ALT 9 U/L (12-78); TOT PROT 5.5 g/dl (6.4-8.2)
--- NOTE | 2016-07-17 10:41 | PN ---
Progress Note (short form) - Note Progress Note: PULMONARY APPEARS MILDLY TACHYPNEIC/AROUSABLE REMAINS AFEBRILE SCATTERED B/L RHONCHI S1S2 SOFT NO EDEMA LABS/MEDS/NOTES/MICRO REVIEWED (1) Anemia Code(s): D64.9 - ANEMIA, UNSPECIFIED Qualifiers: Other causes of anemia: chronic disease, other (2) Bowel perforation Code(s): K63.1 - PERFORATION OF INTESTINE (NONTRAUMATIC) (3) Pleural effusion Code(s): J90 - PLEURAL EFFUSION, NOT ELSEWHERE CLASSIFIED (4) CHF (congestive heart failure) Code(s): I50.9 - HEART FAILURE, UNSPECIFIED Assessment/Plan WOULD CONTINUE O2 SUPPLEMENTATION/UTI ENTEROCOCCUS/ANTIBIOTICS/SURG /IDF/U REPLETE K+ GOALS OF CARE TO BE DETERMINED PROGNOSIS POOR WILL FOLLOW Problem List - Problems (1) Anemia Code(s): D64.9 - ANEMIA, UNSPECIFIED Qualifiers: Other causes of anemia: chronic disease, other (2) Bowel perforation Code(s): K63.1 - PERFORATION OF INTESTINE (NONTRAUMATIC) (3) Pleural effusion Code(s): J90 - PLEURAL EFFUSION, NOT ELSEWHERE CLASSIFIED (4) CHF (congestive heart failure) Code(s): I50.9 - HEART FAILURE, UNSPECIFIED
[2016-07-17] MEDS: FERROUS SO4 325 MG TABLET (FP) PO SCH (11:46)
[2016-07-17] MEDS: AMINO ACIDS/PROTEIN HYDROLYS 30 ML LIQUID.PKT PO SCH ×2 (11:47→18:55)
[2016-07-17] MEDS: MEGESTROL ACETATE 400 MG/10 ML UNIT DOSE CUP PO SCH (11:48)
--- NOTE | 2016-07-17 11:48 | CONSULT ---
Consult Consult Specialty:: Surgery Reason for Consultation:: Pelvic abscess - History of Present Illness History of Present Illness: 80 female s/p exploratory laparotomy last admission for presumed bowel perforation Intraop, bowel was not perforated Findings were a perforated necrotic uterus at the anterior aspect with purulent drainage noted from it Lamp Cleaner consulted intraop- biopsy performd and uterus oversewed by Lamp Cleaner JES drain left in place No hysterectomy done at that time Now noted to have persistent pelvic abscess with persistent drainage from the JES drain - History Source History Provided By: Medical Record Limitations to Obtaining History: Dementia - Past Medical History HEPATOLOGY PHYSICIAN: Yes: Dementia Cardio/Vascular: Yes: AFIB, HTN, Hyperlipdemia Gastrointestinal: Yes: Other (PERITONITIS, RUPTURED INFECTED UTERUS) Renal/: Yes: UTI (hx of ) ...: No Psych: Yes: Anxiety Musculoskeletal: Yes: Osteoarthritis - Past Surgical History Past Surgical History: Yes: Mastectomy (Right- for Cancer) Additional Surgical History: EX LAP - Alcohol/Substance Use Hx Alcohol Use: No - Smoking History Smoking history: Never smoked Have you smoked in the past 12 months: No If you are a former smoker, when did you quit?: 1984 - Social History Usual Living Arrangement: Assisted Living Home Medications - Allergies Allergies/Adverse Reactions: Allergies Allergy/AdvReac Type Severity Reaction Status Date / Time Penicillins Allergy Verified 06/15/16 01:05 - Home Medications Home Medications: Ambulatory Orders Digoxin [Lanoxin -] 0.125 mg PO DAILY tablet 01/16/15 Magnesium Oxide [Mag-Ox -] 400 mg PO BID tablet 01/16/15 Multivitamins [Multivit ([facility] Formulary)] 1 tab PO DAILY tab 01/16/15 Apixaban [Eliquis] 2.5 mg PO BID 05/28/16 Citalopram Hydrobromide [Celexa -] 10 mg PO DAILY 05/28/16 Clonidine HCl 0.1 mg PO BID 05/28/16 Rosuvastatin [Crestor -] 5 mg PO HS tablet 06/01/16 Acetaminophen [Tylenol .Regular Strength -] 650 mg PO Q6H PRN #0 tablet Albuterol 2.5/Ipratropium 0.5 [Duoneb -] 1 amp NEB Q6H PRN #0 amp 07/05/16 Amino Acids/Protein Hydrolys [Prosource No Carb Liquid Pkt] 30 ml PO BID@0800, 1730 packet 07/05/16 Ascorbic Acid [Vitamin C -] 500 mg PO DAILY tablet 07/05/16 Clonazepam [Klonopin -] 0.5 mg PO TID #90 tablet MDD 3 07/05/16 Ferrous Sulfate [Feosol] 325 mg PO DAILY@0800 ud 07/05/16 Folic Acid - 1 mg PO DAILY tablet 07/05/16 Guaifenesin Dm [Robitussin Dm -] 10 ml PO Q8H PRN #0 cup 07/05/16 Lactobacillus Acidophilus [Bacid -] 1 tab PO DAILY tab 07/05/16 Megestrol Acetate Oral Susp [Megace Oral Suspension -] 400 mg PO DAILY cup Metoprolol Tartrate [Lopressor -] 25 mg PO BID tablet 07/05/16 Metronidazole [Flagyl -] 500 mg PO TID tablet 07/05/16 Mirtazapine [Remeron -] 7.5 mg PO HS tablet 07/05/16 Multivitamins [Multivit ([facility] Formulary)] 1 tab PO DAILY tab 07/05/16 Naph,Mb-Db/K pH,Mbdb [PHOS-NaK PACKET -] 1 packet PO DAILY pow 07/05/16 Nystatin/Triamcinolone Top Cr [Mycolog II -] 1 applic TP BID applic 07/05/16 Acetaminophen [Tylenol .Regular Strength -] 325 mg PO Q6H PRN 07/14/16 Aspirin [ASA -] 81 mg PO DAILY 07/14/16 Docusate Sodium [Colace Oral Solution -] 300 mg PO HS 07/14/16 Family Disease History - Family Disease History Family History: Unremarkable Review of Systems Unable to obtain ROS, reason: Dementia Physical Exam Vital Signs: Vital Signs Temperature 98.3 F 07/17/16 06:00 Pulse Rate 78 07/17/16 10:21 Respiratory Rate 20 07/17/16 06:00 Blood Pressure 120/61 07/17/16 06:00 O2 Sat by Pulse Oximetry (%) 97 07/17/16 10:21 Constitutional: Yes: Anxious Gastrointestinal: Yes: Soft, Other (Wound clean dry, almost fully healed, no erythema, no drainage). No: Distention, Tenderness, Rebound Labs: CBC, BMP 07/17/16 06:45 07/17/16 06:45 Problem List - Problems (1) Uterine abscess Code(s): N71.9 - INFLAMMATORY DISEASE OF UTERUS, UNSPECIFIED Assessment/Plan 80 female with previous exploratory laparotomy for suspected bowel perforation No bowel perforation noted Perforated uterus seen as the source of the infection and abscess Continue antibiotics per ID Management of uterus and abscess per Lamp Cleaner No general surgery intervention
[2016-07-17] MEDS: FOLIC ACID 1 MG TABLET (FP) PO SCH (11:49)
[2016-07-17] MEDS: ASPIRIN 81 MG CHEWABLE TABLETS PO SCH (11:49)
[2016-07-17] MEDS: MULTIVITAMINS (DAILY MVI) TABLET (FP) PO SCH (11:49)
[2016-07-17] MEDS: MAGNESIUM OXIDE 400 MG TABLET (FP) PO SCH ×2 (11:49→22:21)
[2016-07-17] MEDS: LACTOBACILLUS ACIDOPHILUS 1 EACH TAB (FP) PO SCH (11:49)
[2016-07-17] MEDS: CITALOPRAM HYDROBROMIDE 10 MG TABLET (FP) PO SCH (11:50)
[2016-07-17] MEDS: ASCORBIC ACID 500 MG TABLET (FP) PO SCH (11:50)
[2016-07-17] MEDS: METOPROLOL TARTRATE 25 MG TABLET (FP) PO SCH ×2 (11:50→22:20)
[2016-07-17] MEDS: APIXABAN 2.5 MG TABLET PO SCH ×2 (11:51→22:20)
[2016-07-17] MEDS: NYSTATIN/TRIAMCINOLONE TOPICAL CREAM 15 GM TUBE TP SCH ×2 (11:52→22:21)
--- NOTE | 2016-07-17 12:28 | PN ---
Progress Note, Physician Chief Complaint: IN BETTER SPIRITS HAD D/W ME -> USUALLY GETS ANNOYED WITH QUESTIONS - Current Medication List Current Medications: Active Medications Acetaminophen (Tylenol -) 650 mg PO Q6H PRN PRN Reason: FEVER OR PAIN Albuterol/Ipratropium (Duoneb -) 1 amp NEB Q6H PRN PRN Reason: SHORTNESS OF BREATH Amino Acids (Prosource No Carb Liquid Pkt) 30 ml PO BID@0800,1730 [facility] Last Admin: 07/17/16 11:47 Dose: 30 ml Apixaban (Eliquis -) 2.5 mg PO BID [facility] Last Admin: 07/17/16 11:51 Dose: 2.5 mg Ascorbic Acid (Vitamin C -) 500 mg PO DAILY [facility] Last Admin: 07/17/16 11:50 Dose: 500 mg Aspirin (Asa -) 81 mg PO DAILY [facility] Last Admin: 07/17/16 11:49 Dose: 81 mg Cefepime HCl (Maxipime 1gm Ivpb Pre-Docked) 1 gm IVPB Q8H-IV DANA PRN Reason: Protocol Last Admin: 07/17/16 11:47 Dose: 1 gm Citalopram Hydrobromide (Celexa -) 10 mg PO DAILY [facility] Last Admin: 07/17/16 11:50 Dose: 10 mg Clonazepam (Klonopin -) 0.5 mg PO TID [facility] Last Admin: 07/17/16 06:32 Dose: 0.5 mg Clonidine HCl (Catapres Tts Patch -) 0.1 mg TD Q7D@1000 [facility] Digoxin (Lanoxin -) 0.125 mg PO Q2D [facility] Last Admin: 07/16/16 19:06 Dose: 0.125 mg Docusate Sodium (Colace Liquid -) 300 mg PO HS [facility] Last Admin: 07/16/16 21:11 Dose: Not Given Fat Emulsion Intravenous (Intralipid -) 250 ml IV DAILY@2200 [facility] Last Admin: 07/16/16 21:04 Dose: 250 ml Ferrous Sulfate (Feosol -) 325 mg PO DAILY@0800 [facility] Last Admin: 07/17/16 11:46 Dose: Not Given Folic Acid (Folic Acid -) 1 mg PO DAILY [facility] Last Admin: 07/17/16 11:49 Dose: 1 mg Metronidazole (Flagyl 500mg Premixed Ivpb -) 100 mls @ 100 mls/hr IVPB Q8H-IV [facility] Last Admin: 07/17/16 11:48 Dose: 100 mls/hr Amino Acids (Clinimix -) 1,000 mls @ 42 mls/hr IV Q24H [facility] Last Admin: 07/16/16 18:53 Dose: 42 mls/hr Lactobacillus Acidophilus (Bacid -) 1 tab PO DAILY [facility] Last Admin: 07/17/16 11:49 Dose: 1 tab Magnesium Oxide (Mag-Ox -) 400 mg PO BID [facility] Last Admin: 07/17/16 11:49 Dose: 400 mg Megestrol Acetate (Megace Oral Suspension -) 400 mg PO DAILY [facility] Last Admin: 07/17/16 11:48 Dose: 400 mg Metoprolol Tartrate (Lopressor -) 25 mg PO BID [facility] Last Admin: 07/17/16 11:50 Dose: 25 mg Mirtazapine (Remeron -) 7.5 mg PO HS [facility] Last Admin: 07/16/16 22:15 Dose: 7.5 mg Multivitamins/Minerals/Vitamin C (Tab-A-Vit -) 1 tab PO DAILY [facility] Last Admin: 07/17/16 11:49 Dose: 1 tab Nystatin/Triamcinolone Acetonide (Mycolog Ii Cream -) 1 applic TP BID [facility] Last Admin: 07/17/16 11:52 Dose: 1 applic Ondansetron HCl (Zofran Injection) 4 mg IVPB Q4H PRN PRN Reason: NAUSEA AND/OR VOMITING Last Admin: 07/15/16 19:09 Dose: 4 mg Vancomycin HCl (Vancomycin (Pre-Docked)) 1,000 mg IVPB DAILY@1200 [facility] Last Admin: 07/16/16 15:22 Dose: 1,000 mg - Objective Vital Signs: Vital Signs Temperature 98.3 F 07/17/16 06:00 Pulse Rate 78 07/17/16 10:21 Respiratory Rate 20 07/17/16 06:00 Blood Pressure 120/61 07/17/16 06:00 O2 Sat by Pulse Oximetry (%) 97 07/17/16 10:21 Cardiovascular: Yes: WNL Respiratory: Yes: WNL Gastrointestinal: Yes: WNL Edema: No Labs: CBC, BMP 07/17/16 06:45 07/17/16 06:45 INR, PTT INR 1.96 (0.82-1.09) H 07/15/16 07:40 Problem List - Problems (1) CHF (congestive heart failure) Code(s): I50.9 - HEART FAILURE, UNSPECIFIED (2) Fever Code(s): R50.9 - FEVER, UNSPECIFIED (3) Afib Code(s): I48.91 - UNSPECIFIED ATRIAL FIBRILLATION (4) HTN (hypertension) Code(s): I10 - ESSENTIAL (PRIMARY) HYPERTENSION Qualifiers: Hypertension type: essential hypertension Qualified Code(s): I10 - Essential (primary) hypertension (5) Intra-abdominal abscess Code(s): K65.1 - PERITONEAL ABSCESS Assessment/Plan (1) Fever Code(s): R50.9 - FEVER, UNSPECIFIED (2) Severe sepsis Code(s): A41.9 - SEPSIS, UNSPECIFIED ORGANISM R65.20 - SEVERE SEPSIS WITHOUT SEPTIC SHOCK (3) Afib Code(s): I48.91 - UNSPECIFIED ATRIAL FIBRILLATION (4) Anemia Code(s): D64.9 - ANEMIA, UNSPECIFIED Qualifiers: Other causes of anemia: chronic disease, other (5) Anxiety Code(s): F41.9 - ANXIETY DISORDER, UNSPECIFIED (6) Uterine abscess Code(s): N71.9 - INFLAMMATORY DISEASE OF UTERUS, UNSPECIFIED Assessment/Plan DISCUSSED WITH DR BECERRIL CAMP ATTENDANT -> CAMP ATTENDANT RE-CONSULTED FOR SURGICAL INTERVENTION ID CONSULT APPRECIATED APPRECIATE SURG CONSULT -> Perforated uterus seen as the source of the infection and abscess Management of uterus and abscess per Trimmer Operator No general surgery intervention GI FOR POSSIBLE GTUBE ON HOLD FOR NOW CAMP ATTENDANT SAW PATIENT TODAY -> WILL F/U WITH NOTE & CAMP ATTENDANT INTERVENTION IV ABX CALORIE COUNT 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
[2016-07-17] MEDS ORDERED: POTASSIUM CHLORIDE TABS 20 MEQ TABLET.ER (FP) PO ONE (12:45)
--- NOTE | 2016-07-17 13:10 | PN ---
Progress Note (short form) - Note Progress Note: much more alert today, hungry and wants to eat Vital Signs Period Temp Pulse Resp BP Sys/Palafox Pulse Ox Last 24 Hr 97.5 F-98.6 F 78-112 20-20 114-137/61-73 96-97 cor-rrr lungs bilateral rhonchi abd soft,nt +eagle ext no edema CBC, BMP 07/17/16 06:45 07/17/16 06:45 Microbiology 07/14/16 19:50 Urine - Urine - Catheterized Urine Culture - Final Vr Ec Faecium 07/14/16 19:40 Blood - Peripheral Venous Blood Culture - Preliminary NO GROWTH OBTAINED AFTER 48 HOURS, INCUBATION TO CONTINUE FOR 3 DAYS. 07/14/16 19:40 Blood - Peripheral Venous Blood Culture - Preliminary NO GROWTH OBTAINED AFTER 48 HOURS, INCUBATION TO CONTINUE FOR 3 DAYS. Current Medications Acetaminophen (Tylenol -) 650 mg PO Q6H PRN PRN Reason: FEVER OR PAIN Albuterol/Ipratropium (Duoneb -) 1 amp NEB Q6H PRN PRN Reason: SHORTNESS OF BREATH Amino Acids (Prosource No Carb Liquid Pkt) 30 ml PO BID@0800,1730 [facility] Last Admin: 07/17/16 11:47 Dose: 30 ml Apixaban (Eliquis -) 2.5 mg PO BID [facility] Last Admin: 07/17/16 11:51 Dose: 2.5 mg Ascorbic Acid (Vitamin C -) 500 mg PO DAILY [facility] Last Admin: 07/17/16 11:50 Dose: 500 mg Aspirin (Asa -) 81 mg PO DAILY [facility] Last Admin: 07/17/16 11:49 Dose: 81 mg Cefepime HCl (Maxipime 1gm Ivpb Pre-Docked) 1 gm IVPB Q8H-IV DANA PRN Reason: Protocol Last Admin: 07/17/16 11:47 Dose: 1 gm Citalopram Hydrobromide (Celexa -) 10 mg PO DAILY [facility] Last Admin: 07/17/16 11:50 Dose: 10 mg Clonazepam (Klonopin -) 0.5 mg PO TID [facility] Last Admin: 07/17/16 06:32 Dose: 0.5 mg Clonidine HCl (Catapres Tts Patch -) 0.1 mg TD Q7D@1000 DANA Digoxin (Lanoxin -) 0.125 mg PO Q2D [facility] Last Admin: 07/16/16 19:06 Dose: 0.125 mg Docusate Sodium (Colace Liquid -) 300 mg PO HS [facility] Last Admin: 07/16/16 21:11 Dose: Not Given Fat Emulsion Intravenous (Intralipid -) 250 ml IV DAILY@2200 [facility] Last Admin: 07/16/16 21:04 Dose: 250 ml Ferrous Sulfate (Feosol -) 325 mg PO DAILY@0800 [facility] Last Admin: 07/17/16 11:46 Dose: Not Given Folic Acid (Folic Acid -) 1 mg PO DAILY [facility] Last Admin: 07/17/16 11:49 Dose: 1 mg Metronidazole (Flagyl 500mg Premixed Ivpb -) 100 mls @ 100 mls/hr IVPB Q8H-IV [facility] Last Admin: 07/17/16 11:48 Dose: 100 mls/hr Amino Acids (Clinimix -) 1,000 mls @ 42 mls/hr IV Q24H [facility] Last Admin: 07/16/16 18:53 Dose: 42 mls/hr Lactobacillus Acidophilus (Bacid -) 1 tab PO DAILY [facility] Last Admin: 07/17/16 11:49 Dose: 1 tab Magnesium Oxide (Mag-Ox -) 400 mg PO BID [facility] Last Admin: 07/17/16 11:49 Dose: 400 mg Megestrol Acetate (Megace Oral Suspension -) 400 mg PO DAILY [facility] Last Admin: 07/17/16 11:48 Dose: 400 mg Metoprolol Tartrate (Lopressor -) 25 mg PO BID [facility] Last Admin: 07/17/16 11:50 Dose: 25 mg Mirtazapine (Remeron -) 7.5 mg PO [facility] Last Admin: 07/16/16 22:15 Dose: 7.5 mg Multivitamins/Minerals/Vitamin C (Tab-A-Vit -) 1 tab PO DAILY [facility] Last Admin: 07/17/16 11:49 Dose: 1 tab Nystatin/Triamcinolone Acetonide (Mycolog Ii Cream -) 1 applic TP BID [facility] Last Admin: 07/17/16 11:52 Dose: 1 applic Ondansetron HCl (Zofran Injection) 4 mg IVPB Q4H PRN PRN Reason: NAUSEA AND/OR VOMITING Last Admin: 07/15/16 19:09 Dose: 4 mg a/p sepsis history of pelvic abscess uti-VRE- contact isolation pen allergy advanced age d/c vancomycin continue cefepime/flagyl abdominal imaging pending- could not drink contrast yesterday gyne f/u awaitied clinically improved suspect urinary colonization will await ct scan and eagle drain culture d/w daughter at bedside
[2016-07-17] MEDS: VANCOMYCIN 1 GRAM (PRE-DOCKED) 1,000 MG/250 ML BAG IVPB SCH (13:54)
--- NOTE | 2016-07-17 14:27 | PN ---
Progress Note (short form) - Note Progress Note: GI FOR DR YAÑEZ: CTSP FOR PEG PLACEMENT DUE TO FAILED CALORIE COUNTS PT DENIES GI COMPLAINTS AND DOES NOT WISH FOR PEG AT THIS TIME SHE STATES THAT SHE IS EATING DAUGHTER AT BEDSIDE STATES THAT SHE NOT EATING ENOUGH AND IT HAS BEEN AN ONGOING PROBLEM FOR INFECTION TO HEAL PT GETTING CLINIMNIX AND MEGACE WELL PT ON ANTICOAGULATION AND IN ADDITION HAS INR >2 NOT CANDIDATE FOR PEG FOR 07/18 PT STILL ON ELIQUIS, HAS INR >2, AND PT REFUSING A PEG PLACEMENT AT THIS TIME DR YAÑEZ TO D/W PATIENT ON 07/18; WOULD NEED CONSENT AND CORRECTION OF INR AND BE OFF A/C MD GORDON
[2016-07-17] MEDS ORDERED: POTASSIUM CHLORIDE 40 MEQ/30 ML UNIT DOSE CUP PO ONE (15:15)
[2016-07-17] MEDS: AMINO ACIDS 4.25%/D5W 1,000 ML IV SCH (15:41)
--- NOTE | 2016-07-17 18:06 | CON.OBG ---
Consult Consult Specialty:: wheel filler Referred by:: DR Oneal Reason for Consultation:: pelvic abscess - History of Present Illness Chief Complaint: fever, chills History of Present Illness: 80 y o f had exploratory laparotomy in JUN 2016 for pelvic abscess ,was found to have puss coming from ant uterine wall, was not able to do hysterectomy because sever adhesions and lack of anatomy , drain was placed and txed with iv antibiotic and alter was discharged to long-term on po antibiotic. 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 Cardio/Vascular: Yes: AFIB, HTN, Hyperlipdemia Gastrointestinal: Yes: Other (PERITONITIS, RUPTURED INFECTED UTERUS) Renal/: Yes: UTI (hx of ) ...: No Psych: Yes: Anxiety Musculoskeletal: Yes: Osteoarthritis - Past Surgical History Past Surgical History: Yes: Mastectomy (Right- for Cancer) Additional Surgical History: EX LAP - Alcohol/Substance Use Hx Alcohol Use: No - Smoking History Smoking history: Never smoked Have you smoked in the past 12 months: No If you are a former smoker, when did you quit?: 1984 - Social History Usual Living Arrangement: Assisted Living Home Medications - Allergies Allergies/Adverse Reactions: Allergies Allergy/AdvReac Type Severity Reaction Status Date / Time Penicillins Allergy Verified 06/15/16 01:05 - Home Medications Home Medications: Ambulatory Orders Digoxin [Lanoxin -] 0.125 mg PO DAILY tablet 01/16/15 Magnesium Oxide [Mag-Ox -] 400 mg PO BID tablet 01/16/15 Multivitamins [Multivit ([facility] Formulary)] 1 tab PO DAILY tab 01/16/15 Apixaban [Eliquis] 2.5 mg PO BID 05/28/16 Citalopram Hydrobromide [Celexa -] 10 mg PO DAILY 05/28/16 Clonidine HCl 0.1 mg PO BID 05/28/16 Rosuvastatin [Crestor -] 5 mg PO HS tablet 06/01/16 Acetaminophen [Tylenol .Regular Strength -] 650 mg PO Q6H PRN #0 tablet Albuterol 2.5/Ipratropium 0.5 [Duoneb -] 1 amp NEB Q6H PRN #0 amp 07/05/16 Amino Acids/Protein Hydrolys [Prosource No Carb Liquid Pkt] 30 ml PO BID@0800, 1730 packet 07/05/16 Ascorbic Acid [Vitamin C -] 500 mg PO DAILY tablet 07/05/16 Clonazepam [Klonopin -] 0.5 mg PO TID #90 tablet MDD 3 07/05/16 Ferrous Sulfate [Feosol] 325 mg PO DAILY@0800 ud 07/05/16 Folic Acid - 1 mg PO DAILY tablet 07/05/16 Guaifenesin Dm [Robitussin Dm -] 10 ml PO Q8H PRN #0 cup 07/05/16 Lactobacillus Acidophilus [Bacid -] 1 tab PO DAILY tab 07/05/16 Megestrol Acetate Oral Susp [Megace Oral Suspension -] 400 mg PO DAILY cup Metoprolol Tartrate [Lopressor -] 25 mg PO BID tablet 07/05/16 Metronidazole [Flagyl -] 500 mg PO TID tablet 07/05/16 Mirtazapine [Remeron -] 7.5 mg PO HS tablet 07/05/16 Multivitamins [Multivit ([facility] Formulary)] 1 tab PO DAILY tab 07/05/16 Naph,Mb-Db/K pH,Mbdb [PHOS-NaK PACKET -] 1 packet PO DAILY pow 07/05/16 Nystatin/Triamcinolone Top Cr [Mycolog II -] 1 applic TP BID applic 07/05/16 Acetaminophen [Tylenol .Regular Strength -] 325 mg PO Q6H PRN 07/14/16 Aspirin [ASA -] 81 mg PO DAILY 07/14/16 Docusate Sodium [Colace Oral Solution -] 300 mg PO HS 07/14/16 Review of Systems - Review of Systems Constitutional: reports: Lethargy, Loss of Appetite, Weakness Gastrointestinal: reports: Abdominal Pain 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 Vital Signs: Vital Signs Temperature 98.7 F 07/17/16 17:23 Pulse Rate 125 H 07/17/16 17:23 Respiratory Rate 22 07/17/16 17:23 Blood Pressure 123/66 07/17/16 17:23 O2 Sat by Pulse Oximetry (%) 97 07/17/16 10:21 Gastrointestinal: Yes: Normal Bowel Sounds, Soft, Tenderness External Genitalia: Yes: Normal Vaginal Exam: Yes: Discharge (green discharge ?stool in vagina) Cervix: Yes: Discharge (not well seen) Uterus: Yes: Tender Labs: CBC, BMP 07/17/16 06:45 07/17/16 06:45 Problem List - Problems (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 poor risk for any surgical intervention at this time, colorectal surgery consult
[2016-07-17] MEDS: FAT EMULSIONS 20% 250 ML PREMIX INFUS.BAG IV SCH (21:49)
[2016-07-17] MEDS: MIRTAZAPINE 15 MG TABLET (FP) PO SCH (22:20)
[2016-07-17] MEDS: DOCUSATE NA 100 MG/10 ML UNIT-DOSE CUPS PO SCH (22:21)
[2016-07-18] MEDS: METRONIDAZOLE 500 MG PREMIXED 100 ML IVPB SCH ×3 (02:14→17:26)
[2016-07-18] MEDS: CEFEPIME 1 GM/100 ML BAG PRE-DOCKED IVPB SCH ×3 (03:13→17:26)
[2016-07-18] MEDS: clonazePAM 0.5 MG TABLET PO SCH ×4 (05:47→21:31)
--- NOTE | 2016-07-18 07:07 | PN ---
Progress Note, Physician Chief Complaint: IN BAD MOOD THIS AM - Current Medication List Current Medications: Active Medications Acetaminophen (Tylenol -) 650 mg PO Q6H PRN PRN Reason: FEVER OR PAIN Albuterol/Ipratropium (Duoneb -) 1 amp NEB Q6H PRN PRN Reason: SHORTNESS OF BREATH Amino Acids (Prosource No Carb Liquid Pkt) 30 ml PO BID@0800,1730 [facility] Last Admin: 07/17/16 18:55 Dose: 30 ml Apixaban (Eliquis -) 2.5 mg PO BID [facility] Last Admin: 07/17/16 22:20 Dose: 2.5 mg Ascorbic Acid (Vitamin C -) 500 mg PO DAILY [facility] Last Admin: 07/17/16 11:50 Dose: 500 mg Aspirin (Asa -) 81 mg PO DAILY [facility] Last Admin: 07/17/16 11:49 Dose: 81 mg Cefepime HCl (Maxipime 1gm Ivpb Pre-Docked) 1 gm IVPB Q8H-IV [facility] PRN Reason: Protocol Last Admin: 07/18/16 03:13 Dose: 1 gm Citalopram Hydrobromide (Celexa -) 10 mg PO DAILY [facility] Last Admin: 07/17/16 11:50 Dose: 10 mg Clonazepam (Klonopin -) 0.5 mg PO TID [facility] Last Admin: 07/18/16 05:47 Dose: 0.5 mg Clonidine HCl (Catapres Tts Patch -) 0.1 mg TD Q7D@1000 DANA Digoxin (Lanoxin -) 0.125 mg PO Q2D [facility] Last Admin: 07/16/16 19:06 Dose: 0.125 mg Docusate Sodium (Colace Liquid -) 300 mg PO HS [facility] Last Admin: 07/17/16 22:21 Dose: Not Given Fat Emulsion Intravenous (Intralipid -) 250 ml IV DAILY@2200 [facility] Last Admin: 07/17/16 21:49 Dose: 250 ml Ferrous Sulfate (Feosol -) 325 mg PO DAILY@0800 [facility] Last Admin: 07/17/16 11:46 Dose: Not Given Folic Acid (Folic Acid -) 1 mg PO DAILY [facility] Last Admin: 07/17/16 11:49 Dose: 1 mg Metronidazole (Flagyl 500mg Premixed Ivpb -) 100 mls @ 100 mls/hr IVPB Q8H-IV [facility] Last Admin: 07/18/16 02:14 Dose: 100 mls/hr Amino Acids (Clinimix -) 1,000 mls @ 42 mls/hr IV Q24H [facility] Last Admin: 07/17/16 15:41 Dose: 42 mls/hr Lactobacillus Acidophilus (Bacid -) 1 tab PO DAILY [facility] Last Admin: 07/17/16 11:49 Dose: 1 tab Magnesium Oxide (Mag-Ox -) 400 mg PO BID [facility] Last Admin: 07/17/16 22:21 Dose: 400 mg Megestrol Acetate (Megace Oral Suspension -) 400 mg PO DAILY [facility] Last Admin: 07/17/16 11:48 Dose: 400 mg Metoprolol Tartrate (Lopressor -) 25 mg PO BID [facility] Last Admin: 07/17/16 22:20 Dose: 25 mg Mirtazapine (Remeron -) 7.5 mg PO HS [facility] Last Admin: 07/17/16 22:20 Dose: 7.5 mg Multivitamins/Minerals/Vitamin C (Tab-A-Vit -) 1 tab PO DAILY [facility] Last Admin: 07/17/16 11:49 Dose: 1 tab Nystatin/Triamcinolone Acetonide (Mycolog Ii Cream -) 1 applic TP BID [facility] Last Admin: 07/17/16 22:21 Dose: 1 applic Ondansetron HCl (Zofran Injection) 4 mg IVPB Q4H PRN PRN Reason: NAUSEA AND/OR VOMITING Last Admin: 07/15/16 19:09 Dose: 4 mg - Objective Vital Signs: Vital Signs Temperature 98.7 F 07/17/16 17:23 Pulse Rate 96 H 07/17/16 22:00 Respiratory Rate 22 07/17/16 22:00 Blood Pressure 111/56 07/17/16 22:00 O2 Sat by Pulse Oximetry (%) 95 07/17/16 21:00 Cardiovascular: Yes: WNL Respiratory: Yes: WNL Gastrointestinal: Yes: Tenderness (?) Labs: CBC, BMP 07/17/16 06:45 07/17/16 06:45 INR, PTT INR 1.96 (0.82-1.09) H 07/15/16 07:40 Problem List - Problems (1) CHF (congestive heart failure) Code(s): I50.9 - HEART FAILURE, UNSPECIFIED (2) Fever Code(s): R50.9 - FEVER, UNSPECIFIED (3) Afib Code(s): I48.91 - UNSPECIFIED ATRIAL FIBRILLATION (4) HTN (hypertension) Code(s): I10 - ESSENTIAL (PRIMARY) HYPERTENSION Qualifiers: Hypertension type: essential hypertension Qualified Code(s): I10 - Essential (primary) hypertension (5) Intra-abdominal abscess Code(s): K65.1 - PERITONEAL ABSCESS Assessment/Plan (1) Fever Code(s): R50.9 - FEVER, UNSPECIFIED (2) Severe sepsis Code(s): A41.9 - SEPSIS, UNSPECIFIED ORGANISM R65.20 - SEVERE SEPSIS WITHOUT SEPTIC SHOCK (3) Afib Code(s): I48.91 - UNSPECIFIED ATRIAL FIBRILLATION (4) Anemia Code(s): D64.9 - ANEMIA, UNSPECIFIED Qualifiers: Other causes of anemia: chronic disease, other (5) Anxiety Code(s): F41.9 - ANXIETY DISORDER, UNSPECIFIED (6) Uterine abscess Code(s): N71.9 - INFLAMMATORY DISEASE OF UTERUS, UNSPECIFIED Assessment/Plan APPRECIATE COMPUTER NETWORKER CONSULT - r/o colovaginal vs rectovaginal fistulla.patient. poor risk for any surgical intervention at this time, colorectal surgery consult ID CONSULT APPRECIATED APPRECIATE SURG CONSULT -> Perforated uterus seen as the source of the infection and abscess. Management of uterus and abscess per Data Analysis Manager No general surgery intervention APPRECIATE GI NOTE FOR GTUBE -> PATIENT REFUSE. ON AC. IV ABX CALORIE COUNT F/U CTAP UCx VRE - COLORECTAL SURG CONSULTED PASTOR GATES
[2016-07-18] MEDS: AMINO ACIDS/PROTEIN HYDROLYS 30 ML LIQUID.PKT PO SCH ×2 (08:00→17:26)
[2016-07-18 08:41] LABS: BASOPHIL 0.5 % (0-2.0); EOSINOPHIL 3.3 % (0-4.5); MCH 29.1 pg (25.7-33.7); MEAN CELL VOLUME 88.1 fl (80-96); NEUTROPHILS 74.8 % (42.8-82.8); PLATELET COUNT 324 K/MM3 (134-434); RDW 16.2 % (11.6-15.6); WHITE BLOOD COUNT 12.3 K/mm3 (4.0-10.0)
[2016-07-18 09:06] LABS: ALBUMIN 1.7 g/dl (3.4-5.0); ANION GAP 8 (8-16); CO2 25 mmol/L (21-32); GLUCOSE,RANDOM 300 mg/dL (74-106)
[2016-07-18 09:10] LABS: ALK PHOS 38 U/L (45-117); BILIRUBIN,TOTAL 0.3 mg/dL (0.2-1.0); CREATININE 0.7 mg/dL (0.55-1.02)
[2016-07-18 09:12] LABS: TOT PROT 5.1 g/dl (6.4-8.2)
[2016-07-18 09:13] LABS: SGOT/AST 21 U/L (15-37); SGPT/ALT 13 U/L (12-78)
[2016-07-18 09:15] LABS: CALCIUM 6.9 mg/dL (8.5-10.1)
[2016-07-18] MEDS ORDERED: PT OWN MED DRAWER 7, Y5N ONE ×2 (11:08→11:17)
[2016-07-18] MEDS: LACTOBACILLUS ACIDOPHILUS 1 EACH TAB (FP) PO SCH (11:10)
[2016-07-18] MEDS: DIGOXIN 0.125 MG TABLET (FP) PO SCH (11:10)
[2016-07-18] MEDS: METOPROLOL TARTRATE 25 MG TABLET (FP) PO SCH ×2 (11:10→21:30)
[2016-07-18] MEDS: MULTIVITAMINS (DAILY MVI) TABLET (FP) PO SCH (11:11)
[2016-07-18] MEDS: FOLIC ACID 1 MG TABLET (FP) PO SCH (11:11)
[2016-07-18] MEDS: FERROUS SO4 325 MG TABLET (FP) PO SCH (11:11)
[2016-07-18] MEDS: ASCORBIC ACID 500 MG TABLET (FP) PO SCH (11:11)
[2016-07-18] MEDS: MAGNESIUM OXIDE 400 MG TABLET (FP) PO SCH ×2 (11:11→21:30)
[2016-07-18] MEDS: MEGESTROL ACETATE 400 MG/10 ML UNIT DOSE CUP PO SCH (11:11)
[2016-07-18] MEDS: ASPIRIN 81 MG CHEWABLE TABLETS PO SCH (11:12)
[2016-07-18] MEDS: CITALOPRAM HYDROBROMIDE 10 MG TABLET (FP) PO SCH (11:13)
[2016-07-18] MEDS: NYSTATIN/TRIAMCINOLONE TOPICAL CREAM 15 GM TUBE TP SCH ×2 (11:16→21:30)
[2016-07-18] MEDS: APIXABAN 2.5 MG TABLET PO SCH ×2 (11:17→21:30)
--- NOTE | 2016-07-18 12:13 | PN ---
Progress Note, Physician History of Present Illness: Awake but confused Temps and WBC improved Wound c/s pending - Current Medication List Current Medications: Active Medications Acetaminophen (Tylenol -) 650 mg PO Q6H PRN PRN Reason: FEVER OR PAIN Albuterol/Ipratropium (Duoneb -) 1 amp NEB Q6H PRN PRN Reason: SHORTNESS OF BREATH Amino Acids (Prosource No Carb Liquid Pkt) 30 ml PO BID@0800,1730 [facility] Last Admin: 07/18/16 08:00 Dose: 30 ml Apixaban (Eliquis -) 2.5 mg PO BID [facility] Last Admin: 07/18/16 11:17 Dose: 2.5 mg Ascorbic Acid (Vitamin C -) 500 mg PO DAILY [facility] Last Admin: 07/18/16 11:11 Dose: 500 mg Aspirin (Asa -) 81 mg PO DAILY [facility] Last Admin: 07/18/16 11:12 Dose: 81 mg Cefepime HCl (Maxipime 1gm Ivpb Pre-Docked) 1 gm IVPB Q8H-IV [facility] PRN Reason: Protocol Last Admin: 07/18/16 11:12 Dose: 1 gm Citalopram Hydrobromide (Celexa -) 10 mg PO DAILY [facility] Last Admin: 07/18/16 11:13 Dose: 10 mg Clonazepam (Klonopin -) 0.5 mg PO TID [facility] Last Admin: 07/18/16 07:39 Dose: Not Given Clonidine HCl (Catapres Tts Patch -) 0.1 mg TD Q7D@1000 DANA Digoxin (Lanoxin -) 0.125 mg PO Q2D [facility] Last Admin: 07/18/16 11:10 Dose: 0.125 mg Docusate Sodium (Colace Liquid -) 300 mg PO HS [facility] Last Admin: 07/17/16 22:21 Dose: Not Given Fat Emulsion Intravenous (Intralipid -) 250 ml IV DAILY@2200 [facility] Last Admin: 07/17/16 21:49 Dose: 250 ml Ferrous Sulfate (Feosol -) 325 mg PO DAILY@0800 [facility] Last Admin: 07/18/16 11:11 Dose: 325 mg Folic Acid (Folic Acid -) 1 mg PO DAILY [facility] Last Admin: 07/18/16 11:11 Dose: 1 mg Metronidazole (Flagyl 500mg Premixed Ivpb -) 100 mls @ 100 mls/hr IVPB Q8H-IV [facility] Last Admin: 07/18/16 11:16 Dose: 100 mls/hr Amino Acids (Clinimix -) 1,000 mls @ 42 mls/hr IV Q24H [facility] Last Admin: 07/17/16 15:41 Dose: 42 mls/hr Lactobacillus Acidophilus (Bacid -) 1 tab PO DAILY [facility] Last Admin: 07/18/16 11:10 Dose: 1 tab Magnesium Oxide (Mag-Ox -) 400 mg PO BID [facility] Last Admin: 07/18/16 11:11 Dose: 400 mg Megestrol Acetate (Megace Oral Suspension -) 400 mg PO DAILY [facility] Last Admin: 07/18/16 11:11 Dose: 400 mg Metoprolol Tartrate (Lopressor -) 25 mg PO BID [facility] Last Admin: 07/18/16 11:10 Dose: 25 mg Mirtazapine (Remeron -) 7.5 mg PO HS [facility] Last Admin: 07/17/16 22:20 Dose: 7.5 mg Multivitamins/Minerals/Vitamin C (Tab-A-Vit -) 1 tab PO DAILY [facility] Last Admin: 07/18/16 11:11 Dose: 1 tab Nystatin/Triamcinolone Acetonide (Mycolog Ii Cream -) 1 applic TP BID [facility] Last Admin: 07/18/16 11:16 Dose: 1 applic Ondansetron HCl (Zofran Injection) 4 mg IVPB Q4H PRN PRN Reason: NAUSEA AND/OR VOMITING Last Admin: 07/15/16 19:09 Dose: 4 mg - Objective Vital Signs: Vital Signs Temperature 98.7 F 07/18/16 06:00 Pulse Rate 94 H 07/18/16 11:10 Respiratory Rate 20 07/18/16 06:00 Blood Pressure 133/57 07/18/16 06:00 O2 Sat by Pulse Oximetry (%) 95 07/17/16 21:00 Constitutional: Yes: No Distress Eyes: Yes: Conjunctiva Clear Cardiovascular: Yes: Regular Rate and Rhythm, S1, S2 Respiratory: Yes: CTA Bilaterally Gastrointestinal: Yes: Normal Bowel Sounds, Soft, Other (JES drain in place). No : Tenderness Edema: No Labs: CBC, BMP 07/18/16 06:15 07/18/16 06:15 INR, PTT INR 1.96 (0.82-1.09) H 07/15/16 07:40 Assessment/Plan Pelvic abscess Fever/ leukocytosis- improved + urine VRE- likely contaminant PCN allergy Await c/s Continue cefepime/ flagyl
--- NOTE | 2016-07-18 12:53 | PN ---
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 Verbal but confused, telling me to ask her "mother what she should eat" and refusing to drink because she is "not an alcoholic." Puree and honey liquids, magic cup at bedside, barely touched. Selected Entries 07/15/16 07/15/16 07/16/16 14:53 18:25 14:45 Breakfast 0 Diet Tolerated Refused Refused Refused Lunch 0 Supper 07/16/16 07/17/16 07/17/16 19:19 11:55 14:34 Breakfast 0 Diet Tolerated Fair Refused Fair Lunch 50% Supper 25% 07/17/16 07/18/16 20:01 09:15 Breakfast 0 Diet Tolerated Poor Refused Lunch Supper 25% Consider palliative care consult f/u by GI regarding possible TF.
--- NOTE | 2016-07-18 13:30 | PN ---
Progress Note (short form) - Note Progress Note: PULMONARY Somnolent but arousable. No fevers recorded. Last Vital Signs Temp Pulse Resp BP Pulse Ox 99.0 F 94 H 22 147/78 95 07/18/16 10:00 07/18/16 11:10 07/18/16 10:00 07/18/16 10:00 07/17/16 21:00 Gen: somnolent Heart: RRR Lung: decreased breath sounds at the bases Abd: soft, nontender Ext: no edema CBC, BMP 07/18/16 06:15 07/18/16 06:15 Active Medications Acetaminophen (Tylenol -) 650 mg PO Q6H PRN PRN Reason: FEVER OR PAIN Albuterol/Ipratropium (Duoneb -) 1 amp NEB Q6H PRN PRN Reason: SHORTNESS OF BREATH Amino Acids (Prosource No Carb Liquid Pkt) 30 ml PO BID@0800,1730 [facility] Last Admin: 07/18/16 08:00 Dose: 30 ml Apixaban (Eliquis -) 2.5 mg PO BID [facility] Last Admin: 07/18/16 11:17 Dose: 2.5 mg Ascorbic Acid (Vitamin C -) 500 mg PO DAILY [facility] Last Admin: 07/18/16 11:11 Dose: 500 mg Aspirin (Asa -) 81 mg PO DAILY [facility] Last Admin: 07/18/16 11:12 Dose: 81 mg Cefepime HCl (Maxipime 1gm Ivpb Pre-Docked) 1 gm IVPB Q8H-IV [facility] PRN Reason: Protocol Last Admin: 07/18/16 11:12 Dose: 1 gm Citalopram Hydrobromide (Celexa -) 10 mg PO DAILY [facility] Last Admin: 07/18/16 11:13 Dose: 10 mg Clonazepam (Klonopin -) 0.5 mg PO TID [facility] Last Admin: 07/18/16 07:39 Dose: Not Given Clonidine HCl (Catapres Tts Patch -) 0.1 mg TD Q7D@1000 DANA Digoxin (Lanoxin -) 0.125 mg PO Q2D [facility] Last Admin: 07/18/16 11:10 Dose: 0.125 mg Docusate Sodium (Colace Liquid -) 300 mg PO HS [facility] Last Admin: 07/17/16 22:21 Dose: Not Given Fat Emulsion Intravenous (Intralipid -) 250 ml IV DAILY@2200 [facility] Last Admin: 07/17/16 21:49 Dose: 250 ml Ferrous Sulfate (Feosol -) 325 mg PO DAILY@0800 [facility] Last Admin: 07/18/16 11:11 Dose: 325 mg Folic Acid (Folic Acid -) 1 mg PO DAILY [facility] Last Admin: 07/18/16 11:11 Dose: 1 mg Metronidazole (Flagyl 500mg Premixed Ivpb -) 100 mls @ 100 mls/hr IVPB Q8H-IV [facility] Last Admin: 07/18/16 11:16 Dose: 100 mls/hr Amino Acids (Clinimix -) 1,000 mls @ 42 mls/hr IV Q24H [facility] Last Admin: 07/17/16 15:41 Dose: 42 mls/hr Lactobacillus Acidophilus (Bacid -) 1 tab PO DAILY [facility] Last Admin: 07/18/16 11:10 Dose: 1 tab Magnesium Oxide (Mag-Ox -) 400 mg PO BID [facility] Last Admin: 07/18/16 11:11 Dose: 400 mg Megestrol Acetate (Megace Oral Suspension -) 400 mg PO DAILY [facility] Last Admin: 07/18/16 11:11 Dose: 400 mg Metoprolol Tartrate (Lopressor -) 25 mg PO BID [facility] Last Admin: 07/18/16 11:10 Dose: 25 mg Mirtazapine (Remeron -) 7.5 mg PO HS [facility] Last Admin: 07/17/16 22:20 Dose: 7.5 mg Multivitamins/Minerals/Vitamin C (Tab-A-Vit -) 1 tab PO DAILY [facility] Last Admin: 07/18/16 11:11 Dose: 1 tab Nystatin/Triamcinolone Acetonide (Mycolog Ii Cream -) 1 applic TP BID [facility] Last Admin: 07/18/16 11:16 Dose: 1 applic Ondansetron HCl (Zofran Injection) 4 mg IVPB Q4H PRN PRN Reason: NAUSEA AND/OR VOMITING Last Admin: 07/15/16 19:09 Dose: 4 mg A/P Pelvic Abscess h/o Uterine Rupture r/o UTI Pleural Effusions Atelectasis - antibiotics per ID - aspiration precautions - incentive spirometry - DVT prophylaxis
--- NOTE | 2016-07-18 13:31 | CONSULT ---
Consult Consult Specialty:: Nephrology Reason for Consultation:: Hypokalemia - History of Present Illness Chief Complaint: abdominal pain and fever History of Present Illness: Pt is an 80 year old female with hx of a-fib, HTN, and cholesterol who presents to the ER with abdominal pain and fever. I was called to evaluate her hypokalemia and electrolyte imbalance. Pt has poor PO intake. She is awake but is a poor historian. She denies dysuria or hematuria. - History Source History Provided By: Medical Record - Past Medical History MANAGER ASSET MANAGEMENT: Yes: Dementia Cardio/Vascular: Yes: AFIB, HTN, Hyperlipdemia Gastrointestinal: Yes: Other (PERITONITIS, RUPTURED INFECTED UTERUS) Renal/: Yes: UTI (hx of ) ...: No Psych: Yes: Anxiety Musculoskeletal: Yes: Osteoarthritis - Past Surgical History Past Surgical History: Yes: Mastectomy (Right- for Cancer) Additional Surgical History: EX LAP - Alcohol/Substance Use Hx Alcohol Use: No - Smoking History Smoking history: Never smoked Have you smoked in the past 12 months: No If you are a former smoker, when did you quit?: 1984 - Social History Usual Living Arrangement: Assisted Living Home Medications - Allergies Allergies/Adverse Reactions: Allergies Allergy/AdvReac Type Severity Reaction Status Date / Time Penicillins Allergy Verified 06/15/16 01:05 - Home Medications Home Medications: Ambulatory Orders Digoxin [Lanoxin -] 0.125 mg PO DAILY tablet 01/16/15 Magnesium Oxide [Mag-Ox -] 400 mg PO BID tablet 01/16/15 Multivitamins [Multivit ([facility])] 1 tab PO DAILY tab 01/16/15 Apixaban [Eliquis] 2.5 mg PO BID 05/28/16 Citalopram Hydrobromide [Celexa -] 10 mg PO DAILY 05/28/16 Clonidine HCl 0.1 mg PO BID 05/28/16 Rosuvastatin [Crestor -] 5 mg PO HS tablet 06/01/16 Acetaminophen [Tylenol .Regular Strength -] 650 mg PO Q6H PRN #0 tablet Albuterol 2.5/Ipratropium 0.5 [Duoneb -] 1 amp NEB Q6H PRN #0 amp 07/05/16 Amino Acids/Protein Hydrolys [Prosource No Carb Liquid Pkt] 30 ml PO BID@0800, 1730 packet 07/05/16 Ascorbic Acid [Vitamin C -] 500 mg PO DAILY tablet 07/05/16 Clonazepam [Klonopin -] 0.5 mg PO TID #90 tablet MDD 3 07/05/16 Ferrous Sulfate [Feosol] 325 mg PO DAILY@0800 ud 07/05/16 Folic Acid - 1 mg PO DAILY tablet 07/05/16 Guaifenesin Dm [Robitussin Dm -] 10 ml PO Q8H PRN #0 cup 07/05/16 Lactobacillus Acidophilus [Bacid -] 1 tab PO DAILY tab 07/05/16 Megestrol Acetate Oral Susp [Megace Oral Suspension -] 400 mg PO DAILY cup Metoprolol Tartrate [Lopressor -] 25 mg PO BID tablet 07/05/16 Metronidazole [Flagyl -] 500 mg PO TID tablet 07/05/16 Mirtazapine [Remeron -] 7.5 mg PO HS tablet 07/05/16 Multivitamins [Multivit ([facility])] 1 tab PO DAILY tab 07/05/16 Naph,Mb-Db/K pH,Mbdb [PHOS-NaK PACKET -] 1 packet PO DAILY pow 07/05/16 Nystatin/Triamcinolone Top Cr [Mycolog II -] 1 applic TP BID applic 07/05/16 Acetaminophen [Tylenol .Regular Strength -] 325 mg PO Q6H PRN 07/14/16 Aspirin [ASA -] 81 mg PO DAILY 07/14/16 Docusate Sodium [Colace Oral Solution -] 300 mg PO HS 07/14/16 Family Disease History - Family Disease History Family History: Unable to Obtain Review of Systems Unable to obtain ROS, reason: poor hisotrian - Review of Systems Constitutional: reports: Malaise Neck: reports: No Symptoms Cardiovascular: reports: No Symptoms Respiratory: reports: No Symptoms Gastrointestinal: reports: Abdominal Pain Genitourinary: reports: No Symptoms Musculoskeletal: reports: No Symptoms Neurological: reports: No Symptoms Endocrine: reports: No Symptoms Physical Exam Vital Signs: Vital Signs Temperature 99.0 F 07/18/16 10:00 Pulse Rate 94 H 07/18/16 11:10 Respiratory Rate 22 07/18/16 10:00 Blood Pressure 147/78 07/18/16 10:00 O2 Sat by Pulse Oximetry (%) 95 07/17/16 21:00 Constitutional: Yes: Calm Eyes: Yes: Conjunctiva Clear HENT: Yes: Atraumatic Neck: Yes: Supple Cardiovascular: Yes: S1, S2 Respiratory: Yes: CTA Bilaterally Gastrointestinal: Yes: Tenderness Musculoskeletal: Yes: Muscle Weakness Edema: No Neurological: Yes: Confusion Labs: CBC, BMP 07/18/16 06:15 07/18/16 06:15 Laboratory Tests 07/18/16 07/18/16 06:15 06:15 WBC 12.3 H Hgb 8.3 L Sodium 137 Potassium 3.2 L Chloride 104 Carbon Dioxide 25 Anion Gap 8 BUN 21 H Creatinine 0.7 Creat Clearance w eGFR > 60 Random Glucose 300 H D Calcium 6.9 L* Albumin 1.7 L Problem List - Problems (1) Afib Code(s): I48.91 - UNSPECIFIED ATRIAL FIBRILLATION (2) Bowel perforation Code(s): K63.1 - PERFORATION OF INTESTINE (NONTRAUMATIC) (3) Dementia Code(s): F03.90 - UNSPECIFIED DEMENTIA WITHOUT BEHAVIORAL DISTURBANCE (4) Hypokalemia Code(s): E87.6 - HYPOKALEMIA Assessment/Plan Current Medications Generic Name Dose Route Start Last Admin Trade Name Freq PRN Reason Stop Dose Admin Acetaminophen 650 mg 07/14/16 21:27 Tylenol - PO Q6H PRN FEVER OR PAIN Albuterol/Ipratropium 1 amp 07/14/16 21:27 Duoneb - NEB Q6H PRN SHORTNESS OF BREATH Amino Acids 30 ml 07/15/16 08:00 07/18/16 08:00 Prosource No Carb Liquid Pkt PO 30 ml BID@0800,1730 DANA Administration Apixaban 2.5 mg 07/14/16 22:00 07/18/16 11:17 Eliquis - PO 2.5 mg BID DANA Administration Ascorbic Acid 500 mg 07/15/16 10:00 07/18/16 11:11 Vitamin C - PO 500 mg DAILY [facility]NA Administration Aspirin 81 mg 07/15/16 10:00 07/18/16 11:12 Asa - PO 81 mg DAILY [facility]NA Administration Cefepime HCl 1 gm 07/15/16 12:00 07/18/16 11:12 Maxipime 1gm Ivpb Pre-Docked IVPB 1 gm Q8H-IV [facility]NA Administration Protocol Citalopram Hydrobromide 10 mg 07/15/16 10:00 07/18/16 11:13 Celexa - PO 10 mg DAILY [facility] Administration Clonazepam 0.5 mg 07/14/16 22:00 07/18/16 07:39 Klonopin - PO Not Given TID DANA Clonidine HCl 0.1 mg 07/21/16 10:00 Catapres Tts Patch - TD Q7D@1000 DANA Digoxin 0.125 mg 07/16/16 10:00 07/18/16 11:10 Lanoxin - PO 0.125 mg Q2D DANA Administration Docusate Sodium 300 mg 07/15/16 22:00 07/17/16 22:21 Colace Liquid - PO Not Given HS DANA Fat Emulsion Intravenous 250 ml 07/15/16 22:00 07/17/16 21:49 Intralipid - IV 250 ml DAILY@2200 DANA Administration Ferrous Sulfate 325 mg 07/15/16 08:00 07/18/16 11:11 Feosol - PO 325 mg DAILY@0800 DANA Administration Folic Acid 1 mg 07/15/16 10:00 07/18/16 11:11 Folic Acid - PO 1 mg DAILY [facility]NA Administration Metronidazole 100 mls @ 100 mls/hr 07/15/16 18:00 07/18/16 11:16 Flagyl 500mg Premixed Ivpb - IVPB 100 mls/hr Q8H-IV DANA Administration Amino Acids 1,000 mls @ 42 mls/hr 07/15/16 15:15 07/17/16 15:41 Clinimix - IV 42 mls/hr Q24H DANA Administration Lactobacillus Acidophilus 1 tab 07/15/16 10:00 07/18/16 11:10 Bacid - PO 1 tab DAILY [facility] Administration Magnesium Oxide 400 mg 07/14/16 22:00 07/18/16 11:11 Mag-Ox - PO 400 mg BID [facility]NA Administration Megestrol Acetate 400 mg 07/15/16 10:00 07/18/16 11:11 Megace Oral Suspension - PO 400 mg DAILY [facility] Administration Metoprolol Tartrate 25 mg 07/14/16 22:00 07/18/16 11:10 Lopressor - PO 25 mg BID [facility]NA Administration Mirtazapine 7.5 mg 07/14/16 22:00 07/17/16 22:20 Remeron - PO 7.5 mg HS [facility]NA Administration Multivitamins/Minerals/Vitamin C 1 tab 07/15/16 10:00 07/18/16 11:11 Tab-A-Vit - PO 1 tab DAILY [facility] Administration Nystatin/Triamcinolone Acetonide 1 applic 07/14/16 22:00 07/18/16 11:16 Mycolog Ii Cream - TP 1 applic BID [facility] Administration Ondansetron HCl 4 mg 07/15/16 18:24 07/15/16 19:09 Zofran Injection IVPB 4 mg Q4H PRN Administration NAUSEA AND/OR VOMITING Impression 1. Hypokalemia 2. HTN 3. dementia 4. a-fib 5. intra-abdominal abscess 6. malnutrition Plan - replace potassium - check mag level - corrected calcium is 8.7 - cont multivitamin - will follow - monitor lytes - one to one feeds Dr Edi
[2016-07-18] MEDS ORDERED: POTASSIUM CHLORIDE TABS 20 MEQ TABLET.ER (FP) PO ONE (14:00)
--- NOTE | 2016-07-18 14:05 | PN ---
GI Progress Note Subjective: GASTROENTEROLOGY SEEN BY BUILDINGS AND GROUNDS SUPERINTENDENT : POSSIBLE RECTOVAGINAL FISTULA STOOL SEEN IN VAGINA?? CALLED BOTH SONS TO DISCUSS PEG TUBE : LEFT NESSAGES BUT NO CALL BACK PT SOMEULENT BUT AROUSABLE BUT VERY CONFUSED - Objective Vital Signs: Vital Signs Temperature 99.0 F 07/18/16 10:00 Pulse Rate 94 H 07/18/16 11:10 Respiratory Rate 22 07/18/16 10:00 Blood Pressure 147/78 07/18/16 10:00 O2 Sat by Pulse Oximetry (%) 95 07/17/16 21:00 Eyes: Yes: Conjunctiva Clear HENT: Yes: Normocephalic Cardiovascular: Yes: Pulse Irregular Respiratory: Yes: Rhonchi Gastrointestinal Inspection: Yes: Distention ...Auscultate: Yes: Hypoactive Bowel Sounds ...Palpate: Yes: Tenderness, Other (FULL, MIDLINE LOWER DRAIN) Extremities: Yes: WNL Labs: CBC, BMP 07/18/16 06:15 07/18/16 06:15 INR, PTT INR 1.96 (0.82-1.09) H 07/15/16 07:40 Problem List - Problems (1) Rectovaginal fistula Assessment/Plan: APTIENT NOT DOING WELL , INFECTION PROGRESSING, NEED TO TALK WITH FAMILY ABOUT PLACEMENT OF PEG TUBE, CALLS WERE PALCED AWAIT THEIR RETURN CALL PROGONOSIS GUARDED BELKIS YAÑEZ MD Code(s): N82.3 - FISTULA OF VAGINA TO LARGE INTESTINE (2) H/O rupture of uterus Code(s): Z87.59 - PERSONAL HISTORY OF COMP OF PREG, CHLDBRTH AND THE PUERP (3) Pelvic fluid collection Code(s): R18.8 - OTHER ASCITES (4) Sepsis Code(s): A41.9 - SEPSIS, UNSPECIFIED ORGANISM Qualifiers: Sepsis type: Escherichia coli Qualified Code(s): A41.51 - Sepsis due to Escherichia coli [E. coli] (5) Intra-abdominal abscess Code(s): K65.1 - PERITONEAL ABSCESS (6) Fever Code(s): R50.9 - FEVER, UNSPECIFIED (7) Poor nutrition Code(s): E63.9 - NUTRITIONAL DEFICIENCY, UNSPECIFIED (8) Afib Code(s): I48.91 - UNSPECIFIED ATRIAL FIBRILLATION (9) Dementia Code(s): F03.90 - UNSPECIFIED DEMENTIA WITHOUT BEHAVIORAL DISTURBANCE
[2016-07-18] MEDS: AMINO ACIDS 4.25%/D5W 1,000 ML IV SCH (17:25)
[2016-07-18] MEDS: DOCUSATE NA 100 MG/10 ML UNIT-DOSE CUPS PO SCH (21:30)
[2016-07-18] MEDS: MIRTAZAPINE 15 MG TABLET (FP) PO SCH (21:30)
[2016-07-18] MEDS: FAT EMULSIONS 20% 250 ML PREMIX INFUS.BAG IV SCH (23:13)
[2016-07-19] MEDS: METRONIDAZOLE 500 MG PREMIXED 100 ML IVPB SCH ×3 (01:36→17:11)
[2016-07-19] MEDS: CEFEPIME 1 GM/100 ML BAG PRE-DOCKED IVPB SCH ×3 (01:36→18:09)
[2016-07-19] MEDS: clonazePAM 0.5 MG TABLET PO SCH ×3 (06:07→23:00)
[2016-07-19] MEDS: FERROUS SO4 325 MG TABLET (FP) PO SCH (08:45)
--- NOTE | 2016-07-19 08:55 | PN ---
Progress Note, Physician History of Present Illness: Pt seen and examined at bedside. No new events. - Current Medication List Current Medications: Active Medications Acetaminophen (Tylenol -) 650 mg PO Q6H PRN PRN Reason: FEVER OR PAIN Albuterol/Ipratropium (Duoneb -) 1 amp NEB Q6H PRN PRN Reason: SHORTNESS OF BREATH Amino Acids (Prosource No Carb Liquid Pkt) 30 ml PO BID@0800,1730 [facility] Last Admin: 07/18/16 17:26 Dose: 30 ml Apixaban (Eliquis -) 2.5 mg PO BID [facility] Last Admin: 07/18/16 21:30 Dose: 2.5 mg Ascorbic Acid (Vitamin C -) 500 mg PO DAILY [facility] Last Admin: 07/18/16 11:11 Dose: 500 mg Aspirin (Asa -) 81 mg PO DAILY [facility] Last Admin: 07/18/16 11:12 Dose: 81 mg Cefepime HCl (Maxipime 1gm Ivpb Pre-Docked) 1 gm IVPB Q8H-IV [facility] PRN Reason: Protocol Last Admin: 07/19/16 01:36 Dose: 1 gm Citalopram Hydrobromide (Celexa -) 10 mg PO DAILY [facility] Last Admin: 07/18/16 11:13 Dose: 10 mg Clonazepam (Klonopin -) 0.5 mg PO TID [facility] Last Admin: 07/19/16 06:07 Dose: 0.5 mg Clonidine HCl (Catapres Tts Patch -) 0.1 mg TD Q7D@1000 [facility] Digoxin (Lanoxin -) 0.125 mg PO Q2D [facility] Last Admin: 07/18/16 11:10 Dose: 0.125 mg Docusate Sodium (Colace -) 300 mg PO HS [facility] Fat Emulsion Intravenous (Intralipid -) 250 ml IV DAILY@2200 [facility] Last Admin: 07/18/16 23:13 Dose: 250 ml Ferrous Sulfate (Feosol -) 325 mg PO DAILY@0800 [facility] Last Admin: 07/19/16 08:45 Dose: Not Given Folic Acid (Folic Acid -) 1 mg PO DAILY [facility] Last Admin: 07/18/16 11:11 Dose: 1 mg Metronidazole (Flagyl 500mg Premixed Ivpb -) 100 mls @ 100 mls/hr IVPB Q8H-IV [facility] Last Admin: 07/19/16 01:36 Dose: 100 mls/hr Amino Acids (Clinimix -) 1,000 mls @ 42 mls/hr IV Q24H [facility] Last Admin: 07/18/16 17:25 Dose: 42 mls/hr Lactobacillus Acidophilus (Bacid -) 1 tab PO DAILY [facility] Last Admin: 07/18/16 11:10 Dose: 1 tab Magnesium Oxide (Mag-Ox -) 400 mg PO BID [facility] Last Admin: 07/18/16 21:30 Dose: 400 mg Megestrol Acetate (Megace Oral Suspension -) 400 mg PO DAILY [facility] Last Admin: 07/18/16 11:11 Dose: 400 mg Metoprolol Tartrate (Lopressor -) 25 mg PO BID [facility] Last Admin: 07/18/16 21:30 Dose: 25 mg Mirtazapine (Remeron -) 7.5 mg PO HS [facility] Last Admin: 07/18/16 21:30 Dose: 7.5 mg Multivitamins/Minerals/Vitamin C (Tab-A-Vit -) 1 tab PO DAILY [facility] Last Admin: 07/18/16 11:11 Dose: 1 tab Nystatin/Triamcinolone Acetonide (Mycolog Ii Cream -) 1 applic TP BID [facility] Last Admin: 07/18/16 21:30 Dose: 1 applic Ondansetron HCl (Zofran Injection) 4 mg IVPB Q4H PRN PRN Reason: NAUSEA AND/OR VOMITING Last Admin: 07/15/16 19:09 Dose: 4 mg - Objective Vital Signs: Vital Signs Temperature 98.7 F 07/19/16 06:00 Pulse Rate 110 H 07/19/16 06:00 Respiratory Rate 18 07/19/16 06:00 Blood Pressure 112/69 07/19/16 06:00 O2 Sat by Pulse Oximetry (%) 96 07/18/16 22:00 Constitutional: Yes: Calm Eyes: Yes: Conjunctiva Clear HENT: Yes: Atraumatic Neck: Yes: Supple Cardiovascular: Yes: S1, S2 Gastrointestinal: Yes: Soft Genitourinary: Yes: Incontinence Musculoskeletal: Yes: Muscle Weakness Edema: No Neurological: Yes: Confusion Labs: CBC, BMP 07/18/16 06:15 07/18/16 06:15 INR, PTT INR 1.96 (0.82-1.09) H 07/15/16 07:40 Problem List - Problems (1) Afib Code(s): I48.91 - UNSPECIFIED ATRIAL FIBRILLATION (2) Bowel perforation Code(s): K63.1 - PERFORATION OF INTESTINE (NONTRAUMATIC) (3) Dementia Code(s): F03.90 - UNSPECIFIED DEMENTIA WITHOUT BEHAVIORAL DISTURBANCE (4) Hypokalemia Code(s): E87.6 - HYPOKALEMIA Assessment/Plan Current Medications Generic Name Dose Route Start Last Admin Trade Name Freq PRN Reason Stop Dose Admin Acetaminophen 650 mg 07/14/16 21:27 Tylenol - PO Q6H PRN FEVER OR PAIN Albuterol/Ipratropium 1 amp 07/14/16 21:27 Duoneb - NEB Q6H PRN SHORTNESS OF BREATH Amino Acids 30 ml 07/15/16 08:00 07/18/16 17:26 Prosource No Carb Liquid Pkt PO 30 ml BID@0800,1730 DANA Administration Apixaban 2.5 mg 07/14/16 22:00 07/18/16 21:30 Eliquis - PO 2.5 mg BID DANA Administration Ascorbic Acid 500 mg 07/15/16 10:00 07/18/16 11:11 Vitamin C - PO 500 mg DAILY DANA Administration Aspirin 81 mg 07/15/16 10:00 07/18/16 11:12 Asa - PO 81 mg DAILY DANA Administration Cefepime HCl 1 gm 07/15/16 12:00 07/19/16 01:36 Maxipime 1gm Ivpb Pre-Docked IVPB 1 gm Q8H-IV DANA Administration Protocol Citalopram Hydrobromide 10 mg 07/15/16 10:00 07/18/16 11:13 Celexa - PO 10 mg DAILY DANA Administration Clonazepam 0.5 mg 07/14/16 22:00 07/19/16 06:07 Klonopin - PO 0.5 mg TID DNAA Administration Clonidine HCl 0.1 mg 07/21/16 10:00 Catapres Tts Patch - TD Q7D@1000 DANA Digoxin 0.125 mg 07/16/16 10:00 07/18/16 11:10 Lanoxin - PO 0.125 mg Q2D DANA Administration Docusate Sodium 300 mg 07/19/16 22:00 Colace - PO HS DANA Fat Emulsion Intravenous 250 ml 07/15/16 22:00 07/18/16 23:13 Intralipid - IV 250 ml DAILY@2200 DANA Administration Ferrous Sulfate 325 mg 07/15/16 08:00 07/19/16 08:45 Feosol - PO Not Given DAILY@0800 DANA Folic Acid 1 mg 07/15/16 10:00 07/18/16 11:11 Folic Acid - PO 1 mg DAILY DANA Administration Metronidazole 100 mls @ 100 mls/hr 07/15/16 18:00 07/19/16 01:36 Flagyl 500mg Premixed Ivpb - IVPB 100 mls/hr Q8H-IV DANA Administration Amino Acids 1,000 mls @ 42 mls/hr 07/15/16 15:15 07/18/16 17:25 Clinimix - IV 42 mls/hr Q24H DANA Administration Lactobacillus Acidophilus 1 tab 07/15/16 10:00 07/18/16 11:10 Bacid - PO 1 tab DAILY DANA Administration Magnesium Oxide 400 mg 07/14/16 22:00 07/18/16 21:30 Mag-Ox - PO 400 mg BID DANA Administration Megestrol Acetate 400 mg 07/15/16 10:00 07/18/16 11:11 Megace Oral Suspension - PO 400 mg DAILY DANA Administration Metoprolol Tartrate 25 mg 07/14/16 22:00 07/18/16 21:30 Lopressor - PO 25 mg BID DANA Administration Mirtazapine 7.5 mg 07/14/16 22:00 07/18/16 21:30 Remeron - PO 7.5 mg HS DANA Administration Multivitamins/Minerals/Vitamin C 1 tab 07/15/16 10:00 07/18/16 11:11 Tab-A-Vit - PO 1 tab DAILY DANA Administration Nystatin/Triamcinolone Acetonide 1 applic 07/14/16 22:00 07/18/16 21:30 Mycolog Ii Cream - TP 1 applic BID DANA Administration Ondansetron HCl 4 mg 07/15/16 18:24 07/15/16 19:09 Zofran Injection IVPB 4 mg Q4H PRN Administration NAUSEA AND/OR VOMITING Impression 1. Hypokalemia 2. HTN 3. dementia 4. a-fib 5. intra-abdominal abscess 6. malnutrition Plan - check bmp - GI input appreciated - family to clarify goals of care - cont multivitamin - will follow - monitor lytes - one to one feeds Dr Eid
[2016-07-19] MEDS ORDERED: PT OWN MED DRAWER 7, Y5N ONE (09:45)
--- NOTE | 2016-07-19 10:16 | PN ---
Progress Note (short form) - Note Progress Note: PULMONARY More awake but remains confused. Denies shortness of breath. No fevers recorded. Last Vital Signs Temp Pulse Resp BP Pulse Ox 98.7 F 110 H 18 112/69 96 07/19/16 06:00 07/19/16 06:00 07/19/16 06:00 07/19/16 06:00 07/18/16 22:00 Gen: more alert, awake Heart: RRR Lung: decreased breath sounds at the bases Abd: soft, nontender Ext: no edema CBC, BMP 07/19/16 10:25 07/19/16 10:25 Active Medications Acetaminophen (Tylenol -) 650 mg PO Q6H PRN PRN Reason: FEVER OR PAIN Albuterol/Ipratropium (Duoneb -) 1 amp NEB Q6H PRN PRN Reason: SHORTNESS OF BREATH Amino Acids (Prosource No Carb Liquid Pkt) 30 ml PO BID@0800,1730 [facility] Last Admin: 07/19/16 11:23 Dose: 30 ml Apixaban (Eliquis -) 2.5 mg PO BID [facility] Last Admin: 07/19/16 11:26 Dose: 2.5 mg Ascorbic Acid (Vitamin C -) 500 mg PO DAILY [facility] Last Admin: 07/19/16 11:24 Dose: 500 mg Aspirin (Asa -) 81 mg PO DAILY [facility] Last Admin: 07/19/16 11:24 Dose: 81 mg Cefepime HCl (Maxipime 1gm Ivpb Pre-Docked) 1 gm IVPB Q8H-IV [facility] PRN Reason: Protocol Last Admin: 07/19/16 11:27 Dose: 1 gm Citalopram Hydrobromide (Celexa -) 10 mg PO DAILY [facility] Last Admin: 07/19/16 11:25 Dose: 10 mg Clonazepam (Klonopin -) 0.5 mg PO TID [facility] Last Admin: 07/19/16 06:07 Dose: 0.5 mg Clonidine HCl (Catapres Tts Patch -) 0.1 mg TD Q7D@1000 [facility] Digoxin (Lanoxin -) 0.125 mg PO Q2D [facility] Last Admin: 07/18/16 11:10 Dose: 0.125 mg Docusate Sodium (Colace -) 300 mg PO HS [facility] Fat Emulsion Intravenous (Intralipid -) 250 ml IV DAILY@2200 [facility] Last Admin: 07/18/16 23:13 Dose: 250 ml Ferrous Sulfate (Feosol -) 325 mg PO DAILY@0800 [facility] Last Admin: 07/19/16 08:45 Dose: Not Given Folic Acid (Folic Acid -) 1 mg PO DAILY [facility] Last Admin: 07/19/16 11:24 Dose: 1 mg Metronidazole (Flagyl 500mg Premixed Ivpb -) 100 mls @ 100 mls/hr IVPB Q8H-IV [facility] Last Admin: 07/19/16 11:26 Dose: 100 mls/hr Amino Acids (Clinimix -) 1,000 mls @ 42 mls/hr IV Q24H [facility] Last Admin: 07/18/16 17:25 Dose: 42 mls/hr Lactobacillus Acidophilus (Bacid -) 1 tab PO DAILY [facility] Last Admin: 07/19/16 11:23 Dose: 1 tab Lorazepam (Ativan Injection -) 0.5 mg IM DAILY PRN PRN Reason: ANXIETY Magnesium Oxide (Mag-Ox -) 400 mg PO BID [facility] Last Admin: 07/19/16 11:24 Dose: 400 mg Megestrol Acetate (Megace Oral Suspension -) 400 mg PO DAILY [facility] Last Admin: 07/19/16 11:27 Dose: 400 mg Metoprolol Tartrate (Lopressor -) 25 mg PO BID [facility] Last Admin: 07/19/16 11:24 Dose: 25 mg Mirtazapine (Remeron -) 7.5 mg PO HS [facility] Last Admin: 07/18/16 21:30 Dose: 7.5 mg Multivitamins/Minerals/Vitamin C (Tab-A-Vit -) 1 tab PO DAILY [facility] Last Admin: 07/19/16 11:23 Dose: 1 tab Nystatin/Triamcinolone Acetonide (Mycolog Ii Cream -) 1 applic TP BID [facility] Last Admin: 07/18/16 21:30 Dose: 1 applic Ondansetron HCl (Zofran Injection) 4 mg IVPB Q4H PRN PRN Reason: NAUSEA AND/OR VOMITING Last Admin: 07/15/16 19:09 Dose: 4 mg A/P Pelvic Abscess h/o Uterine Rupture r/o UTI Pleural Effusions Atelectasis - antibiotics per ID - monitor fever curve, WBC trend - aspiration precautions - incentive spirometry - DVT prophylaxis
[2016-07-19 11:18] LABS: MCHC 31.5 g/dl (32.0-36.0); MEAN CELL VOLUME 85.9 fl (80-96); MEAN PLT VOLUME 7.8 fl (7.5-11.1); PLATELET COUNT 353 K/MM3 (134-434); RDW 15.6 % (11.6-15.6); WHITE BLOOD COUNT 14.5 K/mm3 (4.0-10.0)
[2016-07-19] MEDS: MULTIVITAMINS (DAILY MVI) TABLET (FP) PO SCH (11:23)
[2016-07-19] MEDS: LACTOBACILLUS ACIDOPHILUS 1 EACH TAB (FP) PO SCH (11:23)
[2016-07-19] MEDS: AMINO ACIDS/PROTEIN HYDROLYS 30 ML LIQUID.PKT PO SCH ×2 (11:23→17:12)
[2016-07-19] MEDS: ASCORBIC ACID 500 MG TABLET (FP) PO SCH (11:24)
[2016-07-19] MEDS: FOLIC ACID 1 MG TABLET (FP) PO SCH (11:24)
[2016-07-19] MEDS: METOPROLOL TARTRATE 25 MG TABLET (FP) PO SCH ×2 (11:24→23:00)
[2016-07-19] MEDS: ASPIRIN 81 MG CHEWABLE TABLETS PO SCH (11:24)
[2016-07-19] MEDS: MAGNESIUM OXIDE 400 MG TABLET (FP) PO SCH ×2 (11:24→23:01)
[2016-07-19] MEDS: CITALOPRAM HYDROBROMIDE 10 MG TABLET (FP) PO SCH (11:25)
[2016-07-19] MEDS: APIXABAN 2.5 MG TABLET PO SCH ×2 (11:26→23:00)
[2016-07-19] MEDS: MEGESTROL ACETATE 400 MG/10 ML UNIT DOSE CUP PO SCH (11:27)
[2016-07-19 11:52] LABS: CALCIUM 8.1 mg/dL (8.5-10.1); CREATININE 0.6 mg/dL (0.55-1.02); MAGNESIUM 1.9 mg/dL (1.8-2.4)
[2016-07-19] MEDS ORDERED: LORAZEPAM CARPU-JECT 2 MG/ML DISP.SYRIN IM PRN (13:24)
[2016-07-19] MEDS: NYSTATIN/TRIAMCINOLONE TOPICAL CREAM 15 GM TUBE TP SCH ×2 (18:12→23:01)
[2016-07-19] MEDS: AMINO ACIDS 4.25%/D5W 1,000 ML IV SCH (20:01)
[2016-07-19] MEDS: MIRTAZAPINE 15 MG TABLET (FP) PO SCH (23:00)
[2016-07-19] MEDS: DOCUSATE SODIUM 100 MG CAPSULE (FP) PO SCH (23:00)
[2016-07-19] MEDS: FAT EMULSIONS 20% 250 ML PREMIX INFUS.BAG IV SCH (23:02)
[2016-07-20] MEDS: METRONIDAZOLE 500 MG PREMIXED 100 ML IVPB SCH ×3 (03:12→17:01)
[2016-07-20] MEDS: CEFEPIME 1 GM/100 ML BAG PRE-DOCKED IVPB SCH ×3 (03:12→17:01)
[2016-07-20] MEDS: clonazePAM 0.5 MG TABLET PO SCH ×3 (06:15→22:29)
[2016-07-20] MEDS ORDERED: PT OWN MED DRAWER 7, Y5N ONE ×2 (10:09→22:10)
[2016-07-20] MEDS: MULTIVITAMINS (DAILY MVI) TABLET (FP) PO SCH (10:20)
[2016-07-20] MEDS: MEGESTROL ACETATE 400 MG/10 ML UNIT DOSE CUP PO SCH (10:20)
[2016-07-20] MEDS: LACTOBACILLUS ACIDOPHILUS 1 EACH TAB (FP) PO SCH (10:20)
[2016-07-20] MEDS: AMINO ACIDS/PROTEIN HYDROLYS 30 ML LIQUID.PKT PO SCH ×2 (10:20→17:02)
[2016-07-20] MEDS: DIGOXIN 0.125 MG TABLET (FP) PO SCH (10:20)
[2016-07-20] MEDS: ASPIRIN 81 MG CHEWABLE TABLETS PO SCH (10:21)
[2016-07-20] MEDS: METOPROLOL TARTRATE 25 MG TABLET (FP) PO SCH ×2 (10:21→22:28)
[2016-07-20] MEDS: FERROUS SO4 325 MG TABLET (FP) PO SCH (10:21)
[2016-07-20] MEDS: MAGNESIUM OXIDE 400 MG TABLET (FP) PO SCH ×2 (10:21→22:27)
[2016-07-20] MEDS: FOLIC ACID 1 MG TABLET (FP) PO SCH (10:21)
[2016-07-20] MEDS: ASCORBIC ACID 500 MG TABLET (FP) PO SCH (10:21)
[2016-07-20] MEDS: CITALOPRAM HYDROBROMIDE 10 MG TABLET (FP) PO SCH (10:22)
[2016-07-20] MEDS: NYSTATIN/TRIAMCINOLONE TOPICAL CREAM 15 GM TUBE TP SCH ×2 (10:22→22:29)
[2016-07-20] MEDS: APIXABAN 2.5 MG TABLET PO SCH ×2 (10:22→22:27)
--- NOTE | 2016-07-20 11:56 | PN ---
Progress Note, Physician History of Present Illness: Awake, confused No focal complaint afebrile WBC slightly elevated - Current Medication List Current Medications: Active Medications Acetaminophen (Tylenol -) 650 mg PO Q6H PRN PRN Reason: FEVER OR PAIN Albuterol/Ipratropium (Duoneb -) 1 amp NEB Q6H PRN PRN Reason: SHORTNESS OF BREATH Amino Acids (Prosource No Carb Liquid Pkt) 30 ml PO BID@0800,1730 [facility] Last Admin: 07/20/16 10:20 Dose: 30 ml Apixaban (Eliquis -) 2.5 mg PO BID [facility] Last Admin: 07/20/16 10:22 Dose: 2.5 mg Ascorbic Acid (Vitamin C -) 500 mg PO DAILY [facility] Last Admin: 07/20/16 10:21 Dose: 500 mg Aspirin (Asa -) 81 mg PO DAILY [facility] Last Admin: 07/20/16 10:21 Dose: 81 mg Cefepime HCl (Maxipime 1gm Ivpb Pre-Docked) 1 gm IVPB Q8H-IV [facility] PRN Reason: Protocol Last Admin: 07/20/16 10:22 Dose: 1 gm Citalopram Hydrobromide (Celexa -) 10 mg PO DAILY [facility] Last Admin: 07/20/16 10:22 Dose: 10 mg Clonazepam (Klonopin -) 0.5 mg PO TID [facility] Last Admin: 07/20/16 06:15 Dose: 0.5 mg Clonidine HCl (Catapres Tts Patch -) 0.1 mg TD Q7D@1000 [facility] Digoxin (Lanoxin -) 0.125 mg PO Q2D [facility] Last Admin: 07/20/16 10:20 Dose: 0.125 mg Docusate Sodium (Colace -) 300 mg PO HS [facility] Last Admin: 07/19/16 23:00 Dose: 300 mg Fat Emulsion Intravenous (Intralipid -) 250 ml IV DAILY@2200 [facility] Last Admin: 07/19/16 23:02 Dose: 250 ml Ferrous Sulfate (Feosol -) 325 mg PO DAILY@0800 [facility] Last Admin: 07/20/16 10:21 Dose: 325 mg Folic Acid (Folic Acid -) 1 mg PO DAILY [facility] Last Admin: 07/20/16 10:21 Dose: 1 mg Metronidazole (Flagyl 500mg Premixed Ivpb -) 100 mls @ 100 mls/hr IVPB Q8H-IV [facility] Last Admin: 07/20/16 10:22 Dose: 100 mls/hr Amino Acids (Clinimix -) 1,000 mls @ 42 mls/hr IV Q24H [facility] Last Admin: 07/19/16 20:01 Dose: 42 mls/hr Lactobacillus Acidophilus (Bacid -) 1 tab PO DAILY [facility] Last Admin: 07/20/16 10:20 Dose: 1 tab Lorazepam (Ativan Injection -) 0.5 mg IM DAILY PRN PRN Reason: ANXIETY Magnesium Oxide (Mag-Ox -) 400 mg PO BID [facility] Last Admin: 07/20/16 10:21 Dose: 400 mg Megestrol Acetate (Megace Oral Suspension -) 400 mg PO DAILY [facility] Last Admin: 07/20/16 10:20 Dose: 400 mg Metoprolol Tartrate (Lopressor -) 25 mg PO BID [facility] Last Admin: 07/20/16 10:21 Dose: 25 mg Mirtazapine (Remeron -) 7.5 mg PO HS [facility] Last Admin: 07/19/16 23:00 Dose: 7.5 mg Multivitamins/Minerals/Vitamin C (Tab-A-Vit -) 1 tab PO DAILY [facility] Last Admin: 07/20/16 10:20 Dose: 1 tab Nystatin/Triamcinolone Acetonide (Mycolog Ii Cream -) 1 applic TP BID [facility] Last Admin: 07/20/16 10:22 Dose: 1 applic Ondansetron HCl (Zofran Injection) 4 mg IVPB Q4H PRN PRN Reason: NAUSEA AND/OR VOMITING Last Admin: 07/15/16 19:09 Dose: 4 mg - Objective Vital Signs: Vital Signs Temperature 97.9 F 07/20/16 06:00 Pulse Rate 94 H 07/20/16 10:20 Respiratory Rate 18 07/20/16 06:00 Blood Pressure 127/79 07/20/16 06:00 O2 Sat by Pulse Oximetry (%) 95 07/19/16 23:00 Constitutional: Yes: No Distress Eyes: Yes: Conjunctiva Clear Cardiovascular: Yes: Regular Rate and Rhythm, S1, S2 Respiratory: Yes: CTA Bilaterally Gastrointestinal: Yes: Normal Bowel Sounds, Soft, Other (slightly distended). 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
--- NOTE | 2016-07-20 12:19 | PN ---
Progress Note (short form) - Note Progress Note: PULMONARY Remains confused. Denies shortness of breath. No fevers recorded. Last Vital Signs Temp Pulse Resp BP Pulse Ox 97.9 F 94 H 18 127/79 95 07/20/16 06:00 07/20/16 10:20 07/20/16 06:00 07/20/16 06:00 07/19/16 23:00 Gen: more alert, awake Heart: RRR Lung: decreased breath sounds at the bases Abd: soft, nontender Ext: no edema CBC, BMP 07/19/16 10:25 07/19/16 10:25 Active Medications Acetaminophen (Tylenol -) 650 mg PO Q6H PRN PRN Reason: FEVER OR PAIN Albuterol/Ipratropium (Duoneb -) 1 amp NEB Q6H PRN PRN Reason: SHORTNESS OF BREATH Amino Acids (Prosource No Carb Liquid Pkt) 30 ml PO BID@0800,1730 [facility] Last Admin: 07/20/16 10:20 Dose: 30 ml Apixaban (Eliquis -) 2.5 mg PO BID [facility] Last Admin: 07/20/16 10:22 Dose: 2.5 mg Ascorbic Acid (Vitamin C -) 500 mg PO DAILY [facility] Last Admin: 07/20/16 10:21 Dose: 500 mg Aspirin (Asa -) 81 mg PO DAILY [facility] Last Admin: 07/20/16 10:21 Dose: 81 mg Cefepime HCl (Maxipime 1gm Ivpb Pre-Docked) 1 gm IVPB Q8H-IV [facility] PRN Reason: Protocol Last Admin: 07/20/16 10:22 Dose: 1 gm Citalopram Hydrobromide (Celexa -) 10 mg PO DAILY [facility] Last Admin: 07/20/16 10:22 Dose: 10 mg Clonazepam (Klonopin -) 0.5 mg PO TID [facility] Last Admin: 07/20/16 06:15 Dose: 0.5 mg Clonidine HCl (Catapres Tts Patch -) 0.1 mg TD Q7D@1000 [facility] Digoxin (Lanoxin -) 0.125 mg PO Q2D [facility] Last Admin: 07/20/16 10:20 Dose: 0.125 mg Docusate Sodium (Colace -) 300 mg PO HS [facility] Last Admin: 07/19/16 23:00 Dose: 300 mg Fat Emulsion Intravenous (Intralipid -) 250 ml IV DAILY@2200 [facility] Last Admin: 07/19/16 23:02 Dose: 250 ml Ferrous Sulfate (Feosol -) 325 mg PO DAILY@0800 [facility] Last Admin: 07/20/16 10:21 Dose: 325 mg Folic Acid (Folic Acid -) 1 mg PO DAILY [facility] Last Admin: 07/20/16 10:21 Dose: 1 mg Metronidazole (Flagyl 500mg Premixed Ivpb -) 100 mls @ 100 mls/hr IVPB Q8H-IV [facility] Last Admin: 07/20/16 10:22 Dose: 100 mls/hr Amino Acids (Clinimix -) 1,000 mls @ 42 mls/hr IV Q24H [facility] Last Admin: 07/19/16 20:01 Dose: 42 mls/hr Lactobacillus Acidophilus (Bacid -) 1 tab PO DAILY [facility] Last Admin: 07/20/16 10:20 Dose: 1 tab Lorazepam (Ativan Injection -) 0.5 mg IM DAILY PRN PRN Reason: ANXIETY Magnesium Oxide (Mag-Ox -) 400 mg PO BID [facility] Last Admin: 07/20/16 10:21 Dose: 400 mg Megestrol Acetate (Megace Oral Suspension -) 400 mg PO DAILY [facility] Last Admin: 07/20/16 10:20 Dose: 400 mg Metoprolol Tartrate (Lopressor -) 25 mg PO BID [facility] Last Admin: 07/20/16 10:21 Dose: 25 mg Mirtazapine (Remeron -) 7.5 mg PO HS [facility] Last Admin: 07/19/16 23:00 Dose: 7.5 mg Multivitamins/Minerals/Vitamin C (Tab-A-Vit -) 1 tab PO DAILY [facility] Last Admin: 07/20/16 10:20 Dose: 1 tab Nystatin/Triamcinolone Acetonide (Mycolog Ii Cream -) 1 applic TP BID [facility] Last Admin: 07/20/16 10:22 Dose: 1 applic Ondansetron HCl (Zofran Injection) 4 mg IVPB Q4H PRN PRN Reason: NAUSEA AND/OR VOMITING Last Admin: 07/15/16 19:09 Dose: 4 mg A/P Pelvic Abscess h/o Uterine Rupture r/o UTI Pleural Effusions Atelectasis - antibiotics per ID - monitor fever curve, WBC trend - aspiration precautions - incentive spirometry - DVT prophylaxis
--- NOTE | 2016-07-20 12:27 | PN ---
Progress Note (short form) - Note Progress Note: No acute events Question of a colouterine fistula- stool seen in the vaginal vault on an exam Will order CT with rectal contrast to further evaluate Problem List - Problems (1) Uterine abscess Code(s): N71.9 - INFLAMMATORY DISEASE OF UTERUS, UNSPECIFIED
--- NOTE | 2016-07-20 13:32 | PN ---
Progress Note, Physician Chief Complaint: ASLEEP EVENTS AND CHART REVIEWED - Current Medication List Current Medications: Active Medications Acetaminophen (Tylenol -) 650 mg PO Q6H PRN PRN Reason: FEVER OR PAIN Albuterol/Ipratropium (Duoneb -) 1 amp NEB Q6H PRN PRN Reason: SHORTNESS OF BREATH Amino Acids (Prosource No Carb Liquid Pkt) 30 ml PO BID@0800,1730 [facility] Last Admin: 07/20/16 10:20 Dose: 30 ml Apixaban (Eliquis -) 2.5 mg PO BID [facility] Last Admin: 07/20/16 10:22 Dose: 2.5 mg Ascorbic Acid (Vitamin C -) 500 mg PO DAILY [facility] Last Admin: 07/20/16 10:21 Dose: 500 mg Aspirin (Asa -) 81 mg PO DAILY [facility] Last Admin: 07/20/16 10:21 Dose: 81 mg Cefepime HCl (Maxipime 1gm Ivpb Pre-Docked) 1 gm IVPB Q8H-IV [facility] PRN Reason: Protocol Last Admin: 07/20/16 10:22 Dose: 1 gm Citalopram Hydrobromide (Celexa -) 10 mg PO DAILY [facility] Last Admin: 07/20/16 10:22 Dose: 10 mg Clonazepam (Klonopin -) 0.5 mg PO TID [facility] Last Admin: 07/20/16 06:15 Dose: 0.5 mg Clonidine HCl (Catapres Tts Patch -) 0.1 mg TD Q7D@1000 [facility] Digoxin (Lanoxin -) 0.125 mg PO Q2D [facility] Last Admin: 07/20/16 10:20 Dose: 0.125 mg Docusate Sodium (Colace -) 300 mg PO HS [facility] Last Admin: 07/19/16 23:00 Dose: 300 mg Fat Emulsion Intravenous (Intralipid -) 250 ml IV DAILY@2200 [facility] Last Admin: 07/19/16 23:02 Dose: 250 ml Ferrous Sulfate (Feosol -) 325 mg PO DAILY@0800 [facility] Last Admin: 07/20/16 10:21 Dose: 325 mg Folic Acid (Folic Acid -) 1 mg PO DAILY [facility] Last Admin: 07/20/16 10:21 Dose: 1 mg Metronidazole (Flagyl 500mg Premixed Ivpb -) 100 mls @ 100 mls/hr IVPB Q8H-IV [facility] Last Admin: 07/20/16 10:22 Dose: 100 mls/hr Amino Acids (Clinimix -) 1,000 mls @ 42 mls/hr IV Q24H [facility] Last Admin: 07/19/16 20:01 Dose: 42 mls/hr Lactobacillus Acidophilus (Bacid -) 1 tab PO DAILY [facility] Last Admin: 07/20/16 10:20 Dose: 1 tab Lorazepam (Ativan Injection -) 0.5 mg IM DAILY PRN PRN Reason: ANXIETY Magnesium Oxide (Mag-Ox -) 400 mg PO BID [facility] Last Admin: 07/20/16 10:21 Dose: 400 mg Megestrol Acetate (Megace Oral Suspension -) 400 mg PO DAILY [facility] Last Admin: 07/20/16 10:20 Dose: 400 mg Metoprolol Tartrate (Lopressor -) 25 mg PO BID [facility] Last Admin: 07/20/16 10:21 Dose: 25 mg Mirtazapine (Remeron -) 7.5 mg PO HS [facility] Last Admin: 07/19/16 23:00 Dose: 7.5 mg Multivitamins/Minerals/Vitamin C (Tab-A-Vit -) 1 tab PO DAILY [facility] Last Admin: 07/20/16 10:20 Dose: 1 tab Nystatin/Triamcinolone Acetonide (Mycolog Ii Cream -) 1 applic TP BID [facility] Last Admin: 07/20/16 10:22 Dose: 1 applic Ondansetron HCl (Zofran Injection) 4 mg IVPB Q4H PRN PRN Reason: NAUSEA AND/OR VOMITING Last Admin: 07/15/16 19:09 Dose: 4 mg - Objective Vital Signs: Vital Signs Temperature 97.9 F 07/20/16 06:00 Pulse Rate 94 H 07/20/16 10:20 Respiratory Rate 18 07/20/16 06:00 Blood Pressure 127/79 07/20/16 06:00 O2 Sat by Pulse Oximetry (%) 95 07/19/16 23:00 Constitutional: Yes: Other Eyes: Yes: WNL HENT: Yes: WNL Neck: Yes: WNL Cardiovascular: Yes: Pulse Irregular Respiratory: Yes: On Nasal O2, Rhonchi Gastrointestinal: Yes: Distention, Tenderness Genitourinary: Yes: Incontinence, Vaginal Discharge (LLQ DRAIN), Other Musculoskeletal: Yes: Muscle Weakness Extremities: Yes: Other Edema: Yes Edema: LLE: Trace, RLE: Trace Peripheral Pulses WNL: Yes Integumentary: Yes: Rash Wound/Incision: Yes: Other Neurological: Yes: Confusion ...Motor Strength: LLE, RLE Psychiatric: Yes: Agitated Labs: CBC, BMP 07/19/16 10:25 07/19/16 10:25 INR, PTT INR 1.96 (0.82-1.09) H 07/15/16 07:40 Problem List - Problems (1) Fever Code(s): R50.9 - FEVER, UNSPECIFIED (2) Severe sepsis Code(s): A41.9 - SEPSIS, UNSPECIFIED ORGANISM R65.20 - SEVERE SEPSIS WITHOUT SEPTIC SHOCK (3) Afib Code(s): I48.91 - UNSPECIFIED ATRIAL FIBRILLATION (4) Anemia Code(s): D64.9 - ANEMIA, UNSPECIFIED Qualifiers: Other causes of anemia: chronic disease, other (5) Anxiety Code(s): F41.9 - ANXIETY DISORDER, UNSPECIFIED (6) Uterine abscess Code(s): N71.9 - INFLAMMATORY DISEASE OF UTERUS, UNSPECIFIED (7) Rectovaginal fistula Assessment/Plan: BEING WORKED UP BY SURGERY Code(s): N82.3 - FISTULA OF VAGINA TO LARGE INTESTINE Assessment/Plan ADVANCED DIRECTIVES NEED TO BE REVIEWED CONSULTED JONNY RAWLS TO DISCUSS WITH FAMILY AT THIS POINT SHE IS CONSIDERED HIGH RISK FOR HYSTERECTOMY, NOW THERE IS A POSSIBLE RECTAL VAGINAL FISTULA WORKUP IN PROGRESS. MRS. MELGOZA IS NOT A CANDIDATE FOR ANY INVASIVE SURGERY. CHRONICALLY ILL WOMAN WITH ATRIAL FIB, UTERINE ABSCESS, CRI, SEPSIS, POOR PO INTAKE. I AM ADVISING THE FAMILY TO BRING MOM TO HOSPICE FOR COMFORT CARE AND DNR/DNI. I WILL DISCUSS WITH HER SON MIYA MELGOZA.
[2016-07-20] MEDS: AMINO ACIDS 4.25%/D5W 1,000 ML IV SCH (17:01)
--- NOTE | 2016-07-20 17:47 | PN ---
GI Progress Note Subjective: GASTROENTEROLOGY SPOKE WITH SON , MIYA MELGOZA TODAY I EXPLAINED HER CLINICAL STATUS TO HIM TODAY INCLUDING THE NEW RECTOVAGINAL FISTULA - Objective Vital Signs: Vital Signs Temperature 98.4 F 07/20/16 14:28 Pulse Rate 77 07/20/16 14:28 Respiratory Rate 22 07/20/16 14:28 Blood Pressure 134/66 07/20/16 14:28 O2 Sat by Pulse Oximetry (%) 97 07/20/16 09:00 Constitutional: Other (SAME,CONFUSED) Eyes: Yes: Conjunctiva Clear HENT: Yes: WNL Cardiovascular: Yes: WNL Respiratory: Yes: WNL ...Auscultate: Yes: Hypoactive Bowel Sounds ...Palpate: Yes: Tenderness, Other (MID ABDOMINAL DRAIN) Extremities: Yes: WNL Labs: CBC, BMP 07/19/16 10:25 07/19/16 10:25 INR, PTT INR 1.96 (0.82-1.09) H 07/15/16 07:40 Problem List - Problems (1) Rectovaginal fistula Assessment/Plan: EXPLAINED THE VERY COMPLICATED MANAGEMENT ISSUES WITH THE SON. I EXPLAINED TO HIM THE I COULD PLACE A PEG TUBE BT THIS WILL DO NOTHING FOR HER INFECTION. I HAVE EXPLAINED ALL THE RISKS AND BENEFITS OF THE TUBE BUT TOLD HIM THAT THERE COULD BE A GOOD CHANCE THAT THE TUBE SITE WOULD GET INFECTED AND NOT HEAL. I EXPLAINED TO HIM THAT THE FAMILY WOULD NEED TO UNDERSTAND ALL THE RISKS AND EXPECTATIONS BEFORE THEY SIGN CONSENT FOR G TUBE PLACEMENT. Code(s): N82.3 - FISTULA OF VAGINA TO LARGE INTESTINE (2) H/O rupture of uterus Code(s): Z87.59 - PERSONAL HISTORY OF COMP OF PREG, CHLDBRTH AND THE PUERP (3) Pelvic fluid collection Code(s): R18.8 - OTHER ASCITES (4) Sepsis Code(s): A41.9 - SEPSIS, UNSPECIFIED ORGANISM Qualifiers: Sepsis type: Escherichia coli Qualified Code(s): A41.51 - Sepsis due to Escherichia coli [E. coli] (5) Intra-abdominal abscess Code(s): K65.1 - PERITONEAL ABSCESS (6) Fever Code(s): R50.9 - FEVER, UNSPECIFIED (7) Poor nutrition Code(s): E63.9 - NUTRITIONAL DEFICIENCY, UNSPECIFIED (8) Afib Code(s): I48.91 - UNSPECIFIED ATRIAL FIBRILLATION (9) Dementia Code(s): F03.90 - UNSPECIFIED DEMENTIA WITHOUT BEHAVIORAL DISTURBANCE
--- NOTE | 2016-07-20 17:48 | PN ---
Progress Note, Physician History of Present Illness: Pt seen and examined at bedside. She is awake and agitated. - Current Medication List Current Medications: Active Medications Acetaminophen (Tylenol -) 650 mg PO Q6H PRN PRN Reason: FEVER OR PAIN Albuterol/Ipratropium (Duoneb -) 1 amp NEB Q6H PRN PRN Reason: SHORTNESS OF BREATH Amino Acids (Prosource No Carb Liquid Pkt) 30 ml PO BID@0800,1730 [facility] Last Admin: 07/20/16 17:02 Dose: 30 ml Apixaban (Eliquis -) 2.5 mg PO BID [facility] Last Admin: 07/20/16 10:22 Dose: 2.5 mg Ascorbic Acid (Vitamin C -) 500 mg PO DAILY [facility] Last Admin: 07/20/16 10:21 Dose: 500 mg Aspirin (Asa -) 81 mg PO DAILY [facility] Last Admin: 07/20/16 10:21 Dose: 81 mg Cefepime HCl (Maxipime 1gm Ivpb Pre-Docked) 1 gm IVPB Q8H-IV [facility] PRN Reason: Protocol Last Admin: 07/20/16 17:01 Dose: 1 gm Citalopram Hydrobromide (Celexa -) 10 mg PO DAILY [facility] Last Admin: 07/20/16 10:22 Dose: 10 mg Clonazepam (Klonopin -) 0.5 mg PO TID [facility] Last Admin: 07/20/16 15:45 Dose: Not Given Clonidine HCl (Catapres Tts Patch -) 0.1 mg TD Q7D@1000 [facility] Digoxin (Lanoxin -) 0.125 mg PO Q2D [facility] Last Admin: 07/20/16 10:20 Dose: 0.125 mg Docusate Sodium (Colace -) 300 mg PO HS [facility] Last Admin: 07/19/16 23:00 Dose: 300 mg Fat Emulsion Intravenous (Intralipid -) 250 ml IV DAILY@2200 [facility] Last Admin: 07/19/16 23:02 Dose: 250 ml Ferrous Sulfate (Feosol -) 325 mg PO DAILY@0800 [facility] Last Admin: 07/20/16 10:21 Dose: 325 mg Folic Acid (Folic Acid -) 1 mg PO DAILY [facility] Last Admin: 07/20/16 10:21 Dose: 1 mg Metronidazole (Flagyl 500mg Premixed Ivpb -) 100 mls @ 100 mls/hr IVPB Q8H-IV [facility] Last Admin: 07/20/16 17:01 Dose: 100 mls/hr Amino Acids (Clinimix -) 1,000 mls @ 42 mls/hr IV Q24H [facility] Last Admin: 07/20/16 17:01 Dose: 42 mls/hr Lactobacillus Acidophilus (Bacid -) 1 tab PO DAILY [facility] Last Admin: 07/20/16 10:20 Dose: 1 tab Lorazepam (Ativan Injection -) 0.5 mg IM DAILY PRN PRN Reason: ANXIETY Magnesium Oxide (Mag-Ox -) 400 mg PO BID [facility] Last Admin: 07/20/16 10:21 Dose: 400 mg Megestrol Acetate (Megace Oral Suspension -) 400 mg PO DAILY [facility] Last Admin: 07/20/16 10:20 Dose: 400 mg Metoprolol Tartrate (Lopressor -) 25 mg PO BID [facility] Last Admin: 07/20/16 10:21 Dose: 25 mg Mirtazapine (Remeron -) 7.5 mg PO HS [facility] Last Admin: 07/19/16 23:00 Dose: 7.5 mg Multivitamins/Minerals/Vitamin C (Tab-A-Vit -) 1 tab PO DAILY [facility] Last Admin: 07/20/16 10:20 Dose: 1 tab Nystatin/Triamcinolone Acetonide (Mycolog Ii Cream -) 1 applic TP BID [facility] Last Admin: 07/20/16 10:22 Dose: 1 applic Ondansetron HCl (Zofran Injection) 4 mg IVPB Q4H PRN PRN Reason: NAUSEA AND/OR VOMITING Last Admin: 07/15/16 19:09 Dose: 4 mg - Objective Vital Signs: Vital Signs Temperature 98.4 F 07/20/16 14:28 Pulse Rate 77 07/20/16 14:28 Respiratory Rate 22 07/20/16 14:28 Blood Pressure 134/66 07/20/16 14:28 O2 Sat by Pulse Oximetry (%) 97 07/20/16 09:00 Constitutional: Yes: Calm Eyes: Yes: Conjunctiva Clear HENT: Yes: Atraumatic Neck: Yes: Supple Cardiovascular: Yes: S1, S2 Respiratory: Yes: On Nasal O2 Gastrointestinal: Yes: Soft Genitourinary: Yes: Incontinence Musculoskeletal: Yes: Muscle Weakness Edema: No Neurological: Yes: Confusion Labs: CBC, BMP 07/19/16 10:25 07/19/16 10:25 INR, PTT INR 1.96 (0.82-1.09) H 07/15/16 07:40 Problem List - Problems (1) Afib Code(s): I48.91 - UNSPECIFIED ATRIAL FIBRILLATION (2) Bowel perforation Code(s): K63.1 - PERFORATION OF INTESTINE (NONTRAUMATIC) (3) Dementia Code(s): F03.90 - UNSPECIFIED DEMENTIA WITHOUT BEHAVIORAL DISTURBANCE (4) Hypokalemia Code(s): E87.6 - HYPOKALEMIA Assessment/Plan Current Medications Generic Name Dose Route Start Last Admin Trade Name Freq PRN Reason Stop Dose Admin Acetaminophen 650 mg 07/14/16 21:27 Tylenol - PO Q6H PRN FEVER OR PAIN Albuterol/Ipratropium 1 amp 07/14/16 21:27 Duoneb - NEB Q6H PRN SHORTNESS OF BREATH Amino Acids 30 ml 07/15/16 08:00 07/20/16 17:02 Prosource No Carb Liquid Pkt PO 30 ml BID@0800,1730 [facility] Administration Apixaban 2.5 mg 07/14/16 22:00 07/20/16 10:22 Eliquis - PO 2.5 mg BID [facility] Administration Ascorbic Acid 500 mg 07/15/16 10:00 07/20/16 10:21 Vitamin C - PO 500 mg DAILY [facility] Administration Aspirin 81 mg 07/15/16 10:00 07/20/16 10:21 Asa - PO 81 mg DAILY [facility] Administration Cefepime HCl 1 gm 07/15/16 12:00 07/20/16 17:01 Maxipime 1gm Ivpb Pre-Docked IVPB 1 gm Q8H-IV [facility] Administration Protocol Citalopram Hydrobromide 10 mg 07/15/16 10:00 07/20/16 10:22 Celexa - PO 10 mg DAILY [facility] Administration Clonazepam 0.5 mg 07/14/16 22:00 07/20/16 15:45 Klonopin - PO Not Given TID [facility] Clonidine HCl 0.1 mg 07/21/16 10:00 Catapres Tts Patch - TD Q7D@1000 [facility] Digoxin 0.125 mg 07/16/16 10:00 07/20/16 10:20 Lanoxin - PO 0.125 mg Q2D [facility] Administration Docusate Sodium 300 mg 07/19/16 22:00 07/19/16 23:00 Colace - PO 300 mg HS [facility] Administration Fat Emulsion Intravenous 250 ml 07/15/16 22:00 07/19/16 23:02 Intralipid - IV 250 ml DAILY@2200 [facility] Administration Ferrous Sulfate 325 mg 07/15/16 08:00 07/20/16 10:21 Feosol - PO 325 mg DAILY@0800 [facility] Administration Folic Acid 1 mg 07/15/16 10:00 07/20/16 10:21 Folic Acid - PO 1 mg DAILY [facility] Administration Metronidazole 100 mls @ 100 mls/hr 07/15/16 18:00 07/20/16 17:01 Flagyl 500mg Premixed Ivpb - IVPB 100 mls/hr Q8H-IV [facility] Administration Amino Acids 1,000 mls @ 42 mls/hr 07/15/16 15:15 07/20/16 17:01 Clinimix - IV 42 mls/hr Q24H [facility] Administration Lactobacillus Acidophilus 1 tab 07/15/16 10:00 07/20/16 10:20 Bacid - PO 1 tab DAILY [facility] Administration Lorazepam 0.5 mg 07/19/16 13:24 Ativan Injection - IM DAILY PRN ANXIETY Magnesium Oxide 400 mg 07/14/16 22:00 07/20/16 10:21 Mag-Ox - PO 400 mg BID [facility] Administration Megestrol Acetate 400 mg 07/15/16 10:00 07/20/16 10:20 Megace Oral Suspension - PO 400 mg DAILY [facility] Administration Metoprolol Tartrate 25 mg 07/14/16 22:00 07/20/16 10:21 Lopressor - PO 25 mg BID [facility] Administration Mirtazapine 7.5 mg 07/14/16 22:00 07/19/16 23:00 Remeron - PO 7.5 mg HS [facility] Administration Multivitamins/Minerals/Vitamin C 1 tab 07/15/16 10:00 07/20/16 10:20 Tab-A-Vit - PO 1 tab DAILY [facility] Administration Nystatin/Triamcinolone Acetonide 1 applic 07/14/16 22:00 07/20/16 10:22 Mycolog Ii Cream - TP 1 applic BID [facility] Administration Ondansetron HCl 4 mg 07/15/16 18:24 07/15/16 19:09 Zofran Injection IVPB 4 mg Q4H PRN Administration NAUSEA AND/OR VOMITING Impression 1. Hypokalemia 2. HTN 3. dementia 4. a-fib 5. intra-abdominal abscess 6. malnutrition Plan - cont current clinimix for now - PO intake remains very poor - family to clarify goals of care - cont multivitamin - will follow PRN - one to one feeds Dr Eid
[2016-07-20] MEDS: DOCUSATE SODIUM 100 MG CAPSULE (FP) PO SCH (22:27)
[2016-07-20] MEDS: FAT EMULSIONS 20% 250 ML PREMIX INFUS.BAG IV SCH (22:27)
[2016-07-20] MEDS: MIRTAZAPINE 15 MG TABLET (FP) PO SCH (22:28)
[2016-07-21] MEDS: CEFEPIME 1 GM/100 ML BAG PRE-DOCKED IVPB SCH ×3 (02:16→17:39)
[2016-07-21] MEDS: METRONIDAZOLE 500 MG PREMIXED 100 ML IVPB SCH ×3 (03:28→17:38)
[2016-07-21] MEDS: clonazePAM 0.5 MG TABLET PO SCH ×3 (06:13→21:28)
--- NOTE | 2016-07-21 08:29 | PN ---
Progress Note (short form) - Note Progress Note: CT pelvis done- ordered with rectal contrast Limited contrast on exam Due to limited contrast, the evaluation of a fistula is limited as well Poor surgical candidate regardless Deemed poor surgical candidate by other specialties as well Primary team to discuss hospice/comfort care per record Problem List - Problems (1) Uterine abscess Code(s): N71.9 - INFLAMMATORY DISEASE OF UTERUS, UNSPECIFIED
[2016-07-21] MEDS ORDERED: PT OWN MED DRAWER 7, Y5N ONE ×3 (09:08→20:57)
[2016-07-21] MEDS: FERROUS SO4 325 MG TABLET (FP) PO SCH (09:31)
[2016-07-21] MEDS: MEGESTROL ACETATE 400 MG/10 ML UNIT DOSE CUP PO SCH (09:31)
[2016-07-21] MEDS: MULTIVITAMINS (DAILY MVI) TABLET (FP) PO SCH (09:31)
[2016-07-21] MEDS: FOLIC ACID 1 MG TABLET (FP) PO SCH (09:31)
[2016-07-21] MEDS: MAGNESIUM OXIDE 400 MG TABLET (FP) PO SCH ×2 (09:31→21:29)
[2016-07-21] MEDS: LACTOBACILLUS ACIDOPHILUS 1 EACH TAB (FP) PO SCH (09:31)
[2016-07-21] MEDS: AMINO ACIDS/PROTEIN HYDROLYS 30 ML LIQUID.PKT PO SCH ×2 (09:31→17:38)
[2016-07-21] MEDS: METOPROLOL TARTRATE 25 MG TABLET (FP) PO SCH ×2 (09:31→21:28)
[2016-07-21] MEDS: ASCORBIC ACID 500 MG TABLET (FP) PO SCH (09:31)
[2016-07-21] MEDS: ASPIRIN 81 MG CHEWABLE TABLETS PO SCH (09:31)
[2016-07-21] MEDS: APIXABAN 2.5 MG TABLET PO SCH ×2 (09:31→21:28)
[2016-07-21] MEDS: CITALOPRAM HYDROBROMIDE 10 MG TABLET (FP) PO SCH (09:32)
[2016-07-21] MEDS ORDERED: cloNIDine-TTS 0.1 MG/24 HRS PATCH.TDWK TD SCH (10:00)
--- NOTE | 2016-07-21 10:38 | PN ---
Progress Note, Physician Chief Complaint: AWAKE, LETHARGIC , FALLS BACK TO SLEEP EVENTS AND CHART REVIEWED CT SCAN REVIEWED WITH RADIOLOGY - Current Medication List Current Medications: Active Medications Acetaminophen (Tylenol -) 650 mg PO Q6H PRN PRN Reason: FEVER OR PAIN Albuterol/Ipratropium (Duoneb -) 1 amp NEB Q6H PRN PRN Reason: SHORTNESS OF BREATH Amino Acids (Prosource No Carb Liquid Pkt) 30 ml PO BID@0800,1730 [facility] Last Admin: 07/21/16 09:31 Dose: 30 ml Apixaban (Eliquis -) 2.5 mg PO BID [facility] Last Admin: 07/21/16 09:31 Dose: 2.5 mg Ascorbic Acid (Vitamin C -) 500 mg PO DAILY [facility] Last Admin: 07/21/16 09:31 Dose: 500 mg Aspirin (Asa -) 81 mg PO DAILY [facility] Last Admin: 07/21/16 09:31 Dose: 81 mg Cefepime HCl (Maxipime 1gm Ivpb Pre-Docked) 1 gm IVPB Q8H-IV [facility] PRN Reason: Protocol Last Admin: 07/21/16 09:30 Dose: 1 gm Citalopram Hydrobromide (Celexa -) 10 mg PO DAILY [facility] Last Admin: 07/21/16 09:32 Dose: 10 mg Clonazepam (Klonopin -) 0.5 mg PO TID [facility] Last Admin: 07/21/16 06:13 Dose: Not Given Clonidine HCl (Catapres Tts Patch -) 0.1 mg TD Q7D@1000 [facility] Digoxin (Lanoxin -) 0.125 mg PO Q2D [facility] Last Admin: 07/20/16 10:20 Dose: 0.125 mg Docusate Sodium (Colace -) 300 mg PO HS [facility] Last Admin: 07/20/16 22:27 Dose: 300 mg Fat Emulsion Intravenous (Intralipid -) 250 ml IV DAILY@2200 [facility] Last Admin: 07/20/16 22:27 Dose: 250 ml Ferrous Sulfate (Feosol -) 325 mg PO DAILY@0800 [facility] Last Admin: 07/21/16 09:31 Dose: 325 mg Folic Acid (Folic Acid -) 1 mg PO DAILY [facility] Last Admin: 07/21/16 09:31 Dose: 1 mg Metronidazole (Flagyl 500mg Premixed Ivpb -) 100 mls @ 100 mls/hr IVPB Q8H-IV [facility] Last Admin: 07/21/16 09:30 Dose: 100 mls/hr Amino Acids (Clinimix -) 1,000 mls @ 42 mls/hr IV Q24H [facility] Last Admin: 07/20/16 17:01 Dose: 42 mls/hr Lactobacillus Acidophilus (Bacid -) 1 tab PO DAILY [facility] Last Admin: 07/21/16 09:31 Dose: 1 tab Lorazepam (Ativan Injection -) 0.5 mg IM DAILY PRN PRN Reason: ANXIETY Magnesium Oxide (Mag-Ox -) 400 mg PO BID [facility] Last Admin: 07/21/16 09:31 Dose: 400 mg Megestrol Acetate (Megace Oral Suspension -) 400 mg PO DAILY [facility] Last Admin: 07/21/16 09:31 Dose: 400 mg Metoprolol Tartrate (Lopressor -) 25 mg PO BID [facility] Last Admin: 07/21/16 09:31 Dose: 25 mg Mirtazapine (Remeron -) 7.5 mg PO HS [facility] Last Admin: 07/20/16 22:28 Dose: 7.5 mg Multivitamins/Minerals/Vitamin C (Tab-A-Vit -) 1 tab PO DAILY [facility] Last Admin: 07/21/16 09:31 Dose: 1 tab Nystatin/Triamcinolone Acetonide (Mycolog Ii Cream -) 1 applic TP BID [facility] Last Admin: 07/20/16 22:29 Dose: 1 applic Ondansetron HCl (Zofran Injection) 4 mg IVPB Q4H PRN PRN Reason: NAUSEA AND/OR VOMITING Last Admin: 07/15/16 19:09 Dose: 4 mg - Objective Vital Signs: Vital Signs Temperature 98.3 F 07/20/16 22:24 Pulse Rate 87 07/20/16 22:24 Respiratory Rate 18 07/20/16 22:24 Blood Pressure 128/68 07/20/16 22:24 O2 Sat by Pulse Oximetry (%) 98 07/20/16 21:00 Constitutional: Yes: Moderate Distress Eyes: Yes: WNL HENT: Yes: WNL Neck: Yes: WNL Cardiovascular: Yes: Pulse Irregular Respiratory: Yes: Rhonchi Gastrointestinal: Yes: Distention, Tenderness Genitourinary: Yes: Other (LLQ DRAIN UTERINE ABSCESS WITH YELLOW/WHITE DISCHARGE ABOUT 15CC) Musculoskeletal: Yes: Muscle Weakness Extremities: Yes: Other Edema: Yes Edema: LLE: Trace, RLE: Trace Peripheral Pulses WNL: Yes Integumentary: Yes: Rash Wound/Incision: Yes: Draining Neurological: Yes: Pre-Existing Deficit ...Motor Strength: LLE, RLE Psychiatric: Yes: Agitated, Other Labs: CBC, BMP 07/19/16 10:25 07/19/16 10:25 INR, PTT INR 1.96 (0.82-1.09) H 07/15/16 07:40 Problem List - Problems (1) Fever Code(s): R50.9 - FEVER, UNSPECIFIED (2) Severe sepsis Code(s): A41.9 - SEPSIS, UNSPECIFIED ORGANISM R65.20 - SEVERE SEPSIS WITHOUT SEPTIC SHOCK (3) Afib Code(s): I48.91 - UNSPECIFIED ATRIAL FIBRILLATION (4) Anemia Code(s): D64.9 - ANEMIA, UNSPECIFIED Qualifiers: Other causes of anemia: chronic disease, other (5) Anxiety Code(s): F41.9 - ANXIETY DISORDER, UNSPECIFIED (6) Uterine abscess Code(s): N71.9 - INFLAMMATORY DISEASE OF UTERUS, UNSPECIFIED (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 I HAVE REACHED OUT TO MIYA MELGOZA HER SON TO DISCUSS OPTIONS. I FEEL AT THIS TIME ALONG WITH THE OTHER SPECIALISTS CARING FOR MRS. MELGOZA THAT SHE IS HIGH RISK FOR AND SURGICAL PROCEDURE. HYSTERECTOMY HAS BEEN RULED OUT BY SITE MANAGER, A DRAIN IS PLACE NOW FOR OVER 1 MONTH WITHDISCHARGE, CT SCAN SHOWS THE MASS IS STILL THERE AND DRAINING, EVAL FOR RECTO-VAGINAL FISTULA IN PROGRESS, SURGICAL TREATMENT FOR THAT IS TO HIGH RISK TO REPAIR. A GTUBE AT THIS POINT DOES NOT MAKE SENSE AND THE FAMILY IS IN DISCUSSION WITH DR GENTILE FOR OPTIONS. MY RECOMMENDATION AT THIS POINT IS SEND THE PATIENT TO [facility] FOR NGT FEEDS NUTRITION, WOUND CARE AND REEVALUATE WHEN SHE IS STONGER AND BETTER NOURISHED. JONNY RAWLS HAS BEEN CALLED TO FACILITATE WITH FAMILY
--- NOTE | 2016-07-21 11:58 | PN ---
Progress Note, GEOSPATIAL SPECIALIST - Note Progress Note: Selected Entries 07/20/16 07/20/16 07/20/16 09:20 14:28 19:10 Breakfast 25% Lunch 25% Supper 50% 07/21/16 09:27 Breakfast 0 Lunch Supper Laboratory Tests 07/17/16 07/18/16 07/19/16 06:45 06:15 10:25 WBC 15.2 H 12.3 H 14.5 H Paliative care/GI/ med notes reviewed.Performance unchanged. Pending decision regarding nutritional care.
--- NOTE | 2016-07-21 12:29 | PN ---
Progress Note (short form) - Note Progress Note: PULMONARY Lethargic. No fevers recorded. Last Vital Signs Temp Pulse Resp BP Pulse Ox 98.3 F 87 18 128/68 98 07/20/16 22:24 07/20/16 22:24 07/20/16 22:24 07/20/16 22:24 07/20/16 21:00 Gen: lethargic Heart: RRR Lung: decreased breath sounds at the bases Abd: soft, nontender Ext: no edema CBC, BMP 07/19/16 10:25 07/19/16 10:25 Active Medications Acetaminophen (Tylenol -) 650 mg PO Q6H PRN PRN Reason: FEVER OR PAIN Albuterol/Ipratropium (Duoneb -) 1 amp NEB Q6H PRN PRN Reason: SHORTNESS OF BREATH Amino Acids (Prosource No Carb Liquid Pkt) 30 ml PO BID@0800,1730 [facility] Last Admin: 07/21/16 09:31 Dose: 30 ml Apixaban (Eliquis -) 2.5 mg PO BID [facility] Last Admin: 07/21/16 09:31 Dose: 2.5 mg Ascorbic Acid (Vitamin C -) 500 mg PO DAILY [facility] Last Admin: 07/21/16 09:31 Dose: 500 mg Aspirin (Asa -) 81 mg PO DAILY [facility] Last Admin: 07/21/16 09:31 Dose: 81 mg Cefepime HCl (Maxipime 1gm Ivpb Pre-Docked) 1 gm IVPB Q8H-IV [facility] PRN Reason: Protocol Last Admin: 07/21/16 09:30 Dose: 1 gm Citalopram Hydrobromide (Celexa -) 10 mg PO DAILY [facility] Last Admin: 07/21/16 09:32 Dose: 10 mg Clonazepam (Klonopin -) 0.5 mg PO TID [facility] Last Admin: 07/21/16 06:13 Dose: Not Given Clonidine HCl (Catapres Tts Patch -) 0.1 mg TD Q7D@1000 [facility] Digoxin (Lanoxin -) 0.125 mg PO Q2D [facility] Last Admin: 07/20/16 10:20 Dose: 0.125 mg Docusate Sodium (Colace -) 300 mg PO HS [facility] Last Admin: 07/20/16 22:27 Dose: 300 mg Fat Emulsion Intravenous (Intralipid -) 250 ml IV DAILY@2200 [facility] Last Admin: 07/20/16 22:27 Dose: 250 ml Ferrous Sulfate (Feosol -) 325 mg PO DAILY@0800 [facility] Last Admin: 07/21/16 09:31 Dose: 325 mg Folic Acid (Folic Acid -) 1 mg PO DAILY [facility] Last Admin: 07/21/16 09:31 Dose: 1 mg Metronidazole (Flagyl 500mg Premixed Ivpb -) 100 mls @ 100 mls/hr IVPB Q8H-IV [facility] Last Admin: 07/21/16 09:30 Dose: 100 mls/hr Amino Acids (Clinimix -) 1,000 mls @ 42 mls/hr IV Q24H [facility] Last Admin: 07/20/16 17:01 Dose: 42 mls/hr Lactobacillus Acidophilus (Bacid -) 1 tab PO DAILY [facility] Last Admin: 07/21/16 09:31 Dose: 1 tab Lorazepam (Ativan Injection -) 0.5 mg IM DAILY PRN PRN Reason: ANXIETY Magnesium Oxide (Mag-Ox -) 400 mg PO BID [facility] Last Admin: 07/21/16 09:31 Dose: 400 mg Megestrol Acetate (Megace Oral Suspension -) 400 mg PO DAILY [facility] Last Admin: 07/21/16 09:31 Dose: 400 mg Metoprolol Tartrate (Lopressor -) 25 mg PO BID [facility] Last Admin: 07/21/16 09:31 Dose: 25 mg Mirtazapine (Remeron -) 7.5 mg PO HS [facility] Last Admin: 07/20/16 22:28 Dose: 7.5 mg Multivitamins/Minerals/Vitamin C (Tab-A-Vit -) 1 tab PO DAILY [facility] Last Admin: 07/21/16 09:31 Dose: 1 tab Nystatin/Triamcinolone Acetonide (Mycolog Ii Cream -) 1 applic TP BID [facility] Last Admin: 07/20/16 22:29 Dose: 1 applic Ondansetron HCl (Zofran Injection) 4 mg IVPB Q4H PRN PRN Reason: NAUSEA AND/OR VOMITING Last Admin: 07/15/16 19:09 Dose: 4 mg A/P Pelvic Abscess h/o Uterine Rupture r/o UTI Pleural Effusions Atelectasis - antibiotics per ID - monitor fever curve, WBC trend - aspiration precautions - incentive spirometry - DVT prophylaxis - agree with hospice evaluation
[2016-07-21] MEDS: NYSTATIN/TRIAMCINOLONE TOPICAL CREAM 15 GM TUBE TP SCH ×2 (14:31→21:29)
[2016-07-21] MEDS: AMINO ACIDS 4.25%/D5W 1,000 ML IV SCH (14:34)
--- NOTE | 2016-07-21 15:42 | PN ---
Progress Note, Physician History of Present Illness: Awake, confused No acute distress Afebrile - Current Medication List Current Medications: Active Medications Acetaminophen (Tylenol -) 650 mg PO Q6H PRN PRN Reason: FEVER OR PAIN Albuterol/Ipratropium (Duoneb -) 1 amp NEB Q6H PRN PRN Reason: SHORTNESS OF BREATH Amino Acids (Prosource No Carb Liquid Pkt) 30 ml PO BID@0800,1730 [facility] Last Admin: 07/21/16 09:31 Dose: 30 ml Apixaban (Eliquis -) 2.5 mg PO BID [facility] Last Admin: 07/21/16 09:31 Dose: 2.5 mg Ascorbic Acid (Vitamin C -) 500 mg PO DAILY [facility] Last Admin: 07/21/16 09:31 Dose: 500 mg Aspirin (Asa -) 81 mg PO DAILY [facility] Last Admin: 07/21/16 09:31 Dose: 81 mg Cefepime HCl (Maxipime 1gm Ivpb Pre-Docked) 1 gm IVPB Q8H-IV DANA PRN Reason: Protocol Last Admin: 07/21/16 09:30 Dose: 1 gm Citalopram Hydrobromide (Celexa -) 10 mg PO DAILY [facility] Last Admin: 07/21/16 09:32 Dose: 10 mg Clonazepam (Klonopin -) 0.5 mg PO TID [facility] Last Admin: 07/21/16 14:34 Dose: 0.5 mg Clonidine HCl (Catapres Tts Patch -) 0.1 mg TD Q7D@1000 [facility] Digoxin (Lanoxin -) 0.125 mg PO Q2D [facility] Last Admin: 07/20/16 10:20 Dose: 0.125 mg Docusate Sodium (Colace -) 300 mg PO HS [facility] Last Admin: 07/20/16 22:27 Dose: 300 mg Fat Emulsion Intravenous (Intralipid -) 250 ml IV DAILY@2200 [facility] Last Admin: 07/20/16 22:27 Dose: 250 ml Ferrous Sulfate (Feosol -) 325 mg PO DAILY@0800 [facility] Last Admin: 07/21/16 09:31 Dose: 325 mg Folic Acid (Folic Acid -) 1 mg PO DAILY [facility] Last Admin: 07/21/16 09:31 Dose: 1 mg Metronidazole (Flagyl 500mg Premixed Ivpb -) 100 mls @ 100 mls/hr IVPB Q8H-IV [facility] Last Admin: 07/21/16 09:30 Dose: 100 mls/hr Amino Acids (Clinimix -) 1,000 mls @ 42 mls/hr IV Q24H [facility] Last Admin: 07/21/16 14:34 Dose: 42 mls/hr Lactobacillus Acidophilus (Bacid -) 1 tab PO DAILY [facility] Last Admin: 07/21/16 09:31 Dose: 1 tab Lorazepam (Ativan Injection -) 0.5 mg IM DAILY PRN PRN Reason: ANXIETY Magnesium Oxide (Mag-Ox -) 400 mg PO BID [facility] Last Admin: 07/21/16 09:31 Dose: 400 mg Megestrol Acetate (Megace Oral Suspension -) 400 mg PO DAILY [facility] Last Admin: 07/21/16 09:31 Dose: 400 mg Metoprolol Tartrate (Lopressor -) 25 mg PO BID [facility] Last Admin: 07/21/16 09:31 Dose: 25 mg Mirtazapine (Remeron -) 7.5 mg PO HS [facility] Last Admin: 07/20/16 22:28 Dose: 7.5 mg Multivitamins/Minerals/Vitamin C (Tab-A-Vit -) 1 tab PO DAILY [facility] Last Admin: 07/21/16 09:31 Dose: 1 tab Nystatin/Triamcinolone Acetonide (Mycolog Ii Cream -) 1 applic TP BID [facility] Last Admin: 07/21/16 14:31 Dose: 1 applic Ondansetron HCl (Zofran Injection) 4 mg IVPB Q4H PRN PRN Reason: NAUSEA AND/OR VOMITING Last Admin: 07/15/16 19:09 Dose: 4 mg - Objective Vital Signs: Vital Signs Temperature 98.0 F 07/21/16 14:24 Pulse Rate 82 07/21/16 14:24 Respiratory Rate 22 07/21/16 14:24 Blood Pressure 126/66 07/21/16 14:24 O2 Sat by Pulse Oximetry (%) 96 07/21/16 10:00 Constitutional: Yes: No Distress, Cachectic Eyes: Yes: Conjunctiva Clear Cardiovascular: Yes: Regular Rate and Rhythm, S1, S2 Respiratory: Yes: CTA Bilaterally Gastrointestinal: Yes: Normal Bowel Sounds, Soft, Other (drain in place). 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
[2016-07-21] MEDS: DOCUSATE SODIUM 100 MG CAPSULE (FP) PO SCH (21:27)
[2016-07-21] MEDS: MIRTAZAPINE 15 MG TABLET (FP) PO SCH (21:29)
[2016-07-21] MEDS: FAT EMULSIONS 20% 250 ML PREMIX INFUS.BAG IV SCH (22:30)
[2016-07-22] MEDS: METRONIDAZOLE 500 MG PREMIXED 100 ML IVPB SCH ×3 (01:28→19:01)
[2016-07-22] MEDS: CEFEPIME 1 GM/100 ML BAG PRE-DOCKED IVPB SCH ×3 (01:28→18:20)
[2016-07-22] MEDS: clonazePAM 0.5 MG TABLET PO SCH ×3 (05:59→22:06)
[2016-07-22 07:11] LABS: MCH 27.7 pg (25.7-33.7); MCHC 32.4 g/dl (32.0-36.0); MEAN CELL VOLUME 85.3 fl (80-96); MEAN PLT VOLUME 7.7 fl (7.5-11.1); PLATELET COUNT 374 K/MM3 (134-434); RDW 16.6 % (11.6-15.6); WHITE BLOOD COUNT 13.3 K/mm3 (4.0-10.0)
[2016-07-22 07:39] LABS: ALBUMIN 2.3 g/dl (3.4-5.0); ALK PHOS 127 U/L (45-117); ANION GAP 5 (8-16); BILIRUBIN,TOTAL 0.4 mg/dL (0.2-1.0); CALCIUM 9.1 mg/dL (8.5-10.1); CO2 31 mmol/L (21-32); CREATININE 0.5 mg/dL (0.55-1.02); GLUCOSE,RANDOM 83 mg/dL (74-106); SGOT/AST 15 U/L (15-37); SGPT/ALT 32 U/L (12-78); TOT PROT 6.4 g/dl (6.4-8.2)
[2016-07-22] MEDS ORDERED: PT OWN MED DRAWER 7, Y5N ONE ×2 (09:45→15:11)
[2016-07-22] MEDS: FERROUS SO4 325 MG TABLET (FP) PO SCH (09:54)
[2016-07-22] MEDS: ASPIRIN 81 MG CHEWABLE TABLETS PO SCH (09:54)
[2016-07-22] MEDS: DIGOXIN 0.125 MG TABLET (FP) PO SCH (09:54)
[2016-07-22] MEDS: METOPROLOL TARTRATE 25 MG TABLET (FP) PO SCH ×2 (09:55→22:06)
[2016-07-22] MEDS: APIXABAN 2.5 MG TABLET PO SCH ×2 (09:55→23:09)
[2016-07-22] MEDS: FOLIC ACID 1 MG TABLET (FP) PO SCH (09:55)
[2016-07-22] MEDS: CITALOPRAM HYDROBROMIDE 10 MG TABLET (FP) PO SCH (09:56)
[2016-07-22] MEDS: MULTIVITAMINS (DAILY MVI) TABLET (FP) PO SCH (09:56)
[2016-07-22] MEDS: MAGNESIUM OXIDE 400 MG TABLET (FP) PO SCH ×2 (09:56→22:06)
[2016-07-22] MEDS: MEGESTROL ACETATE 400 MG/10 ML UNIT DOSE CUP PO SCH (09:56)
[2016-07-22] MEDS: LACTOBACILLUS ACIDOPHILUS 1 EACH TAB (FP) PO SCH (09:56)
[2016-07-22] MEDS: ASCORBIC ACID 500 MG TABLET (FP) PO SCH (09:56)
[2016-07-22] MEDS: AMINO ACIDS/PROTEIN HYDROLYS 30 ML LIQUID.PKT PO SCH ×2 (09:56→18:19)
[2016-07-22] MEDS: NYSTATIN/TRIAMCINOLONE TOPICAL CREAM 15 GM TUBE TP SCH ×2 (09:57→23:09)
--- NOTE | 2016-07-22 11:28 | DS ---
Physical Examination Vital Signs: Vital Signs Temperature 97.4 F L 07/22/16 06:43 Pulse Rate 78 07/22/16 09:54 Respiratory Rate 188 H 07/22/16 06:43 Blood Pressure 128/63 07/22/16 06:43 O2 Sat by Pulse Oximetry (%) 96 07/21/16 21:00 Constitutional: Yes: Mild Distress Eyes: Yes: WNL HENT: Yes: WNL Neck: Yes: WNL Cardiovascular: Yes: Pulse Irregular Respiratory: Yes: Cough, Rhonchi Gastrointestinal: Yes: WNL Renal/: Yes: Other (JTUBE WITH DRAINING YELLOW/WHITE DISCHARGE) Musculoskeletal: Yes: Muscle Weakness Edema: Yes Integumentary: Yes: Pressure Ulcer, Venous Stasis Changes Wound/Incision: Yes: Dressing Dry and Intact Neurological: Yes: Pre-Existing Deficit ...Motor Strength: LLE, RLE Psychiatric: Yes: Other Labs: CBC, BMP 07/22/16 05:35 07/22/16 05:35 Discharge Summary Reason For Visit: FEVER Current Active Problems CHF (congestive heart failure) (Acute) Fever (Acute) H/O rupture of uterus (Acute) Pelvic abscess in female (Acute) Pleural effusion (Acute) Poor appetite (Acute) Poor nutrition (Acute) Rectovaginal fistula (Acute) Severe sepsis (Acute) Procedures: Principal: CT SCAN Other Procedures: LABS/CX Hospital Course: ADMITTED FOR POOR APPETITE/LEUKOCYTOSIS, OVARIAN ABSCESS WITH JES DRAIN, WORSENING CONDITION, WILL SEND TO [facility] FOR WOUND CARE/NGT FEEDS AND WHEN IMPROVING CAN RETURN FOR GTUBE PLACEMENT Condition: Guarded - Instructions Diet, Activity, Other Instructions: NGT JEVITY Referrals: Diallo Kirkland MD [Primary Care Provider] - Disposition: ASSISTED FACILITY - Home Medications Comprehensive Discharge Medication List: Ambulatory Orders Digoxin [Lanoxin -] 0.125 mg PO DAILY tablet 01/16/15 Magnesium Oxide [Mag-Ox -] 400 mg PO BID tablet 01/16/15 Multivitamins [Multivit ([facility] Formulary)] 1 tab PO DAILY tab 01/16/15 Apixaban [Eliquis] 2.5 mg PO BID 05/28/16 Citalopram Hydrobromide [Celexa -] 10 mg PO DAILY 05/28/16 Clonidine HCl 0.1 mg PO BID 05/28/16 Rosuvastatin [Crestor -] 5 mg PO HS tablet 06/01/16 Acetaminophen [Tylenol .Regular Strength -] 650 mg PO Q6H PRN #0 tablet Albuterol 2.5/Ipratropium 0.5 [Duoneb -] 1 amp NEB Q6H PRN #0 amp 07/05/16 Amino Acids/Protein Hydrolys [Prosource No Carb Liquid Pkt] 30 ml PO BID@0800, 1730 packet 07/05/16 Ascorbic Acid [Vitamin C -] 500 mg PO DAILY tablet 07/05/16 Clonazepam [Klonopin -] 0.5 mg PO TID #90 tablet MDD 3 07/05/16 Ferrous Sulfate [Feosol] 325 mg PO DAILY@0800 ud 07/05/16 Folic Acid - 1 mg PO DAILY tablet 07/05/16 Guaifenesin Dm [Robitussin Dm -] 10 ml PO Q8H PRN #0 cup 07/05/16 Lactobacillus Acidophilus [Bacid -] 1 tab PO DAILY tab 07/05/16 Megestrol Acetate Oral Susp [Megace Oral Suspension -] 400 mg PO DAILY cup Metoprolol Tartrate [Lopressor -] 25 mg PO BID tablet 07/05/16 Metronidazole [Flagyl -] 500 mg PO TID tablet 07/05/16 Mirtazapine [Remeron -] 7.5 mg PO HS tablet 07/05/16 Multivitamins [Multivit ([facility] Formulary)] 1 tab PO DAILY tab 07/05/16 Naph,Mb-Db/K pH,Mbdb [PHOS-NaK PACKET -] 1 packet PO DAILY pow 07/05/16 Nystatin/Triamcinolone Top Cr [Mycolog II -] 1 applic TP BID applic 07/05/16 Acetaminophen [Tylenol .Regular Strength -] 325 mg PO Q6H PRN 07/14/16 Aspirin [ASA -] 81 mg PO DAILY 07/14/16 Docusate Sodium [Colace Oral Solution -] 300 mg PO HS 07/14/16 Aspirin [ASA -] 81 mg PO DAILY tab.chew 07/22/16 Clonazepam [Klonopin -] 0.5 mg PO TID tablet MDD 4 07/22/16 Clonidine Patch [Catapres Tts Patch -] 0.1 mg TD Q7D@1000 07/22/16 Digoxin [Lanoxin -] 0.125 mg PO Q2D tablet 07/22/16 Fat Emulsions [Intralipid -] 250 ml IV DAILY@2200 07/22/16 Lactobacillus Acidophilus [Bacid -] 1 tab PO DAILY tab 07/22/16
--- NOTE | 2016-07-22 15:04 | PN ---
Progress Note (short form) - Note Progress Note: remains lethargic Vital Signs Period Temp Pulse Resp BP Sys/Palafox Pulse Ox Last 24 Hr 97.4 F-98.6 F 73-94 16-188 117-147/51-78 96 cor-rrr lungs-clear abd- soft,nt +JES ext no edema CBC, BMP 07/22/16 05:35 07/22/16 05:35 Microbiology 07/14/16 19:40 Blood - Peripheral Venous Blood Culture - Final NO GROWTH AFTER 5 DAYS INCUBATION 07/14/16 19:40 Blood - Peripheral Venous Blood Culture - Final NO GROWTH AFTER 5 DAYS INCUBATION 07/15/16 17:30 Abdomen Gram Stain - Final 07/15/16 17:30 Abdomen Wound Culture - Final NO GROWTH AFTER 48 HOURS INCUBATION 07/14/16 19:50 Urine - Urine - Catheterized Urine Culture - Final Vr Ec Faecium Current Medications Acetaminophen (Tylenol -) 650 mg PO Q6H PRN PRN Reason: FEVER OR PAIN Albuterol/Ipratropium (Duoneb -) 1 amp NEB Q6H PRN PRN Reason: SHORTNESS OF BREATH Amino Acids (Prosource No Carb Liquid Pkt) 30 ml PO BID@0800,1730 [facility] Last Admin: 07/22/16 09:56 Dose: 30 ml Apixaban (Eliquis -) 2.5 mg PO BID [facility] Last Admin: 07/22/16 09:55 Dose: 2.5 mg Ascorbic Acid (Vitamin C -) 500 mg PO DAILY [facility] Last Admin: 07/22/16 09:56 Dose: 500 mg Aspirin (Asa -) 81 mg PO DAILY [facility] Last Admin: 07/22/16 09:54 Dose: 81 mg Cefepime HCl (Maxipime 1gm Ivpb Pre-Docked) 1 gm IVPB Q8H-IV [facility] PRN Reason: Protocol Last Admin: 07/22/16 09:58 Dose: 1 gm Citalopram Hydrobromide (Celexa -) 10 mg PO DAILY [facility] Last Admin: 07/22/16 09:56 Dose: 10 mg Clonazepam (Klonopin -) 0.5 mg PO TID [facility] Last Admin: 07/22/16 15:13 Dose: 0.5 mg Clonidine HCl (Catapres Tts Patch -) 0.1 mg TD Q7D@1000 [facility] Digoxin (Lanoxin -) 0.125 mg PO Q2D [facility] Last Admin: 07/22/16 09:54 Dose: 0.125 mg Docusate Sodium (Colace -) 300 mg PO HS [facility] Last Admin: 07/21/16 21:27 Dose: 300 mg Fat Emulsion Intravenous (Intralipid -) 250 ml IV DAILY@2200 [facility] Last Admin: 07/21/16 22:30 Dose: 250 ml Ferrous Sulfate (Feosol -) 325 mg PO DAILY@0800 [facility] Last Admin: 07/22/16 09:54 Dose: 325 mg Folic Acid (Folic Acid -) 1 mg PO DAILY [facility] Last Admin: 07/22/16 09:55 Dose: 1 mg Metronidazole (Flagyl 500mg Premixed Ivpb -) 100 mls @ 100 mls/hr IVPB Q8H-IV [facility] Last Admin: 07/22/16 11:16 Dose: 100 mls/hr Amino Acids (Clinimix -) 1,000 mls @ 42 mls/hr IV Q24H [facility] Last Admin: 07/21/16 14:34 Dose: 42 mls/hr Lactobacillus Acidophilus (Bacid -) 1 tab PO DAILY [facility] Last Admin: 07/22/16 09:56 Dose: 1 tab Lorazepam (Ativan Injection -) 0.5 mg IM DAILY PRN PRN Reason: ANXIETY Magnesium Oxide (Mag-Ox -) 400 mg PO BID [facility] Last Admin: 07/22/16 09:56 Dose: 400 mg Megestrol Acetate (Megace Oral Suspension -) 400 mg PO DAILY [facility] Last Admin: 07/22/16 09:56 Dose: 400 mg Metoprolol Tartrate (Lopressor -) 25 mg PO BID [facility] Last Admin: 07/22/16 09:55 Dose: 25 mg Mirtazapine (Remeron -) 7.5 mg PO [facility] Last Admin: 07/21/16 21:29 Dose: 7.5 mg Multivitamins/Minerals/Vitamin C (Tab-A-Vit -) 1 tab PO DAILY [facility] Last Admin: 07/22/16 09:56 Dose: 1 tab Nystatin/Triamcinolone Acetonide (Mycolog Ii Cream -) 1 applic TP BID [facility] Last Admin: 07/22/16 09:57 Dose: 1 applic Ondansetron HCl (Zofran Injection) 4 mg IVPB Q4H PRN PRN Reason: NAUSEA AND/OR VOMITING Last Admin: 07/15/16 19:09 Dose: 4 mg a/p pelvic abscess wbc trending down continue cefepime/flagyl
[2016-07-22] MEDS: AMINO ACIDS 4.25%/D5W 1,000 ML IV SCH (18:19)
[2016-07-22] MEDS: FAT EMULSIONS 20% 250 ML PREMIX INFUS.BAG IV SCH (22:05)
[2016-07-22] MEDS: DOCUSATE SODIUM 100 MG CAPSULE (FP) PO SCH (22:06)
[2016-07-22] MEDS: MIRTAZAPINE 15 MG TABLET (FP) PO SCH (22:06)
[2016-07-23] MEDS: CEFEPIME 1 GM/100 ML BAG PRE-DOCKED IVPB SCH ×3 (01:21→17:30)
[2016-07-23] MEDS: METRONIDAZOLE 500 MG PREMIXED 100 ML IVPB SCH ×3 (01:21→19:02)
[2016-07-23] MEDS: clonazePAM 0.5 MG TABLET PO SCH ×3 (05:58→22:31)
[2016-07-23] MEDS: AMINO ACIDS/PROTEIN HYDROLYS 30 ML LIQUID.PKT PO SCH ×2 (09:00→16:50)
[2016-07-23] MEDS: FERROUS SO4 325 MG TABLET (FP) PO SCH (09:00)
--- NOTE | 2016-07-23 11:19 | PN ---
Progress Note, Physician - Current Medication List Current Medications: Active Medications Acetaminophen (Tylenol -) 650 mg PO Q6H PRN PRN Reason: FEVER OR PAIN Albuterol/Ipratropium (Duoneb -) 1 amp NEB Q6H PRN PRN Reason: SHORTNESS OF BREATH Amino Acids (Prosource No Carb Liquid Pkt) 30 ml PO BID@0800,1730 [facility] Last Admin: 07/22/16 18:19 Dose: 30 ml Apixaban (Eliquis -) 2.5 mg PO BID [facility] Last Admin: 07/22/16 23:09 Dose: 2.5 mg Ascorbic Acid (Vitamin C -) 500 mg PO DAILY [facility] Last Admin: 07/22/16 09:56 Dose: 500 mg Aspirin (Asa -) 81 mg PO DAILY [facility] Last Admin: 07/22/16 09:54 Dose: 81 mg Cefepime HCl (Maxipime 1gm Ivpb Pre-Docked) 1 gm IVPB Q8H-IV [facility] PRN Reason: Protocol Last Admin: 07/23/16 01:21 Dose: 1 gm Citalopram Hydrobromide (Celexa -) 10 mg PO DAILY [facility] Last Admin: 07/22/16 09:56 Dose: 10 mg Clonazepam (Klonopin -) 0.5 mg PO TID [facility] Last Admin: 07/23/16 05:58 Dose: 0.5 mg Clonidine HCl (Catapres Tts Patch -) 0.1 mg TD Q7D@1000 [facility] Digoxin (Lanoxin -) 0.125 mg PO Q2D [facility] Last Admin: 07/22/16 09:54 Dose: 0.125 mg Docusate Sodium (Colace -) 300 mg PO HS [facility] Last Admin: 07/22/16 22:06 Dose: 300 mg Fat Emulsion Intravenous (Intralipid -) 250 ml IV DAILY@2200 [facility] Last Admin: 07/22/16 22:05 Dose: 250 ml Ferrous Sulfate (Feosol -) 325 mg PO DAILY@0800 [facility] Last Admin: 07/22/16 09:54 Dose: 325 mg Folic Acid (Folic Acid -) 1 mg PO DAILY [facility] Last Admin: 07/22/16 09:55 Dose: 1 mg Metronidazole (Flagyl 500mg Premixed Ivpb -) 100 mls @ 100 mls/hr IVPB Q8H-IV [facility] Last Admin: 07/23/16 01:21 Dose: 100 mls/hr Amino Acids (Clinimix -) 1,000 mls @ 42 mls/hr IV Q24H [facility] Last Admin: 07/22/16 18:19 Dose: 42 mls/hr Lactobacillus Acidophilus (Bacid -) 1 tab PO DAILY [facility] Last Admin: 07/22/16 09:56 Dose: 1 tab Lorazepam (Ativan Injection -) 0.5 mg IM DAILY PRN PRN Reason: ANXIETY Magnesium Oxide (Mag-Ox -) 400 mg PO BID [facility] Last Admin: 07/22/16 22:06 Dose: 400 mg Megestrol Acetate (Megace Oral Suspension -) 400 mg PO DAILY [facility] Last Admin: 07/22/16 09:56 Dose: 400 mg Metoprolol Tartrate (Lopressor -) 25 mg PO BID [facility] Last Admin: 07/22/16 22:06 Dose: 25 mg Mirtazapine (Remeron -) 7.5 mg PO HS [facility] Last Admin: 07/22/16 22:06 Dose: 7.5 mg Multivitamins/Minerals/Vitamin C (Tab-A-Vit -) 1 tab PO DAILY [facility] Last Admin: 07/22/16 09:56 Dose: 1 tab Nystatin/Triamcinolone Acetonide (Mycolog Ii Cream -) 1 applic TP BID [facility] Last Admin: 07/22/16 23:09 Dose: 1 applic Ondansetron HCl (Zofran Injection) 4 mg IVPB Q4H PRN PRN Reason: NAUSEA AND/OR VOMITING Last Admin: 07/15/16 19:09 Dose: 4 mg - Objective Vital Signs: Vital Signs Temperature 98.5 F 07/23/16 06:00 Pulse Rate 98 H 07/23/16 06:00 Respiratory Rate 20 07/23/16 06:00 Blood Pressure 149/71 07/23/16 06:00 O2 Sat by Pulse Oximetry (%) 95 07/22/16 21:00 Cardiovascular: Yes: S1, S2 Respiratory: Yes: Diminished Labs: CBC, BMP 07/22/16 05:35 07/22/16 05:35 INR, PTT INR 1.96 (0.82-1.09) H 07/15/16 07:40 Assessment/Plan THIS IS A CHRONICALLY ILL WOMAN WITH ATRIAL FLUTTER (WAS ON ELIQUIS), POOR APPETITE, UTERINE ABSCESS WITH JES DRAIN, ANXIETY DISORDER, WEAKNESS, SEPSIS TREATED WITH IV ABX. SHE IS HIGH RISK FOR AND SURGICAL PROCEDURE. 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
[2016-07-23] MEDS: MEGESTROL ACETATE 400 MG/10 ML UNIT DOSE CUP PO SCH (11:30)
[2016-07-23] MEDS: ASCORBIC ACID 500 MG TABLET (FP) PO SCH (11:30)
[2016-07-23] MEDS: MAGNESIUM OXIDE 400 MG TABLET (FP) PO SCH ×2 (11:30→22:31)
[2016-07-23] MEDS: MULTIVITAMINS (DAILY MVI) TABLET (FP) PO SCH (11:30)
[2016-07-23] MEDS: METOPROLOL TARTRATE 25 MG TABLET (FP) PO SCH ×2 (11:31→22:31)
[2016-07-23] MEDS: LACTOBACILLUS ACIDOPHILUS 1 EACH TAB (FP) PO SCH (11:31)
[2016-07-23] MEDS: ASPIRIN 81 MG CHEWABLE TABLETS PO SCH (11:31)
[2016-07-23] MEDS: CITALOPRAM HYDROBROMIDE 10 MG TABLET (FP) PO SCH (11:32)
[2016-07-23] MEDS: APIXABAN 2.5 MG TABLET PO SCH ×2 (11:33→22:32)
[2016-07-23] MEDS: NYSTATIN/TRIAMCINOLONE TOPICAL CREAM 15 GM TUBE TP SCH ×2 (11:48→22:32)
[2016-07-23] MEDS: FOLIC ACID 1 MG TABLET (FP) PO SCH (12:45)
--- NOTE | 2016-07-23 13:56 | PN ---
Progress Note, Physician History of Present Illness: Awake, confused Afebrile WBC mildly elevated - Current Medication List Current Medications: Active Medications Acetaminophen (Tylenol -) 650 mg PO Q6H PRN PRN Reason: FEVER OR PAIN Albuterol/Ipratropium (Duoneb -) 1 amp NEB Q6H PRN PRN Reason: SHORTNESS OF BREATH Amino Acids (Prosource No Carb Liquid Pkt) 30 ml PO BID@0800,1730 [facility] Last Admin: 07/23/16 09:00 Dose: Not Given Apixaban (Eliquis -) 2.5 mg PO BID [facility] Last Admin: 07/23/16 11:33 Dose: 2.5 mg Ascorbic Acid (Vitamin C -) 500 mg PO DAILY [facility] Last Admin: 07/23/16 11:30 Dose: 500 mg Aspirin (Asa -) 81 mg PO DAILY [facility] Last Admin: 07/23/16 11:31 Dose: 81 mg Cefepime HCl (Maxipime 1gm Ivpb Pre-Docked) 1 gm IVPB Q8H-IV [facility] PRN Reason: Protocol Last Admin: 07/23/16 12:45 Dose: 1 gm Citalopram Hydrobromide (Celexa -) 10 mg PO DAILY [facility] Last Admin: 07/23/16 11:32 Dose: 10 mg Clonazepam (Klonopin -) 0.5 mg PO TID [facility] Last Admin: 07/23/16 05:58 Dose: 0.5 mg Clonidine HCl (Catapres Tts Patch -) 0.1 mg TD Q7D@1000 [facility] Digoxin (Lanoxin -) 0.125 mg PO Q2D [facility] Last Admin: 07/22/16 09:54 Dose: 0.125 mg Docusate Sodium (Colace -) 300 mg PO HS [facility] Last Admin: 07/22/16 22:06 Dose: 300 mg Fat Emulsion Intravenous (Intralipid -) 250 ml IV DAILY@2200 [facility] Last Admin: 07/22/16 22:05 Dose: 250 ml Ferrous Sulfate (Feosol -) 325 mg PO DAILY@0800 [facility] Last Admin: 07/23/16 09:00 Dose: Not Given Folic Acid (Folic Acid -) 1 mg PO DAILY [facility] Last Admin: 07/23/16 12:45 Dose: 1 mg Metronidazole (Flagyl 500mg Premixed Ivpb -) 100 mls @ 100 mls/hr IVPB Q8H-IV [facility] Last Admin: 07/23/16 11:23 Dose: 100 mls/hr Amino Acids (Clinimix -) 1,000 mls @ 42 mls/hr IV Q24H [facility] Last Admin: 07/22/16 18:19 Dose: 42 mls/hr Lactobacillus Acidophilus (Bacid -) 1 tab PO DAILY [facility] Last Admin: 07/23/16 11:31 Dose: 1 tab Lorazepam (Ativan Injection -) 0.5 mg IM DAILY PRN PRN Reason: ANXIETY Magnesium Oxide (Mag-Ox -) 400 mg PO BID [facility] Last Admin: 07/23/16 11:30 Dose: 400 mg Megestrol Acetate (Megace Oral Suspension -) 400 mg PO DAILY [facility] Last Admin: 07/23/16 11:30 Dose: 400 mg Metoprolol Tartrate (Lopressor -) 25 mg PO BID [facility] Last Admin: 07/23/16 11:31 Dose: 25 mg Mirtazapine (Remeron -) 7.5 mg PO HS [facility] Last Admin: 07/22/16 22:06 Dose: 7.5 mg Multivitamins/Minerals/Vitamin C (Tab-A-Vit -) 1 tab PO DAILY [facility] Last Admin: 07/23/16 11:30 Dose: 1 tab Nystatin/Triamcinolone Acetonide (Mycolog Ii Cream -) 1 applic TP BID [facility] Last Admin: 07/23/16 11:48 Dose: 1 applic Ondansetron HCl (Zofran Injection) 4 mg IVPB Q4H PRN PRN Reason: NAUSEA AND/OR VOMITING Last Admin: 07/15/16 19:09 Dose: 4 mg - Objective Vital Signs: Vital Signs Temperature 98.6 F 07/23/16 10:00 Pulse Rate 98 H 07/23/16 10:00 Respiratory Rate 20 07/23/16 10:00 Blood Pressure 122/82 07/23/16 10:00 O2 Sat by Pulse Oximetry (%) 95 07/22/16 21:00 Constitutional: Yes: No Distress Eyes: Yes: Conjunctiva Clear Cardiovascular: Yes: Regular Rate and Rhythm, S1, S2 Respiratory: Yes: CTA Bilaterally Gastrointestinal: Yes: Normal Bowel Sounds, Soft. 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
--- NOTE | 2016-07-23 13:57 | PN ---
Progress Note (short form) - Note Progress Note: PULMONARY Lethargic but arousable. No fevers recorded. Last Vital Signs Temp Pulse Resp BP Pulse Ox 98.6 F 98 H 20 122/82 95 07/23/16 10:00 07/23/16 10:00 07/23/16 10:00 07/23/16 10:00 07/22/16 21:00 Gen: lethargic Heart: RRR Lung: decreased breath sounds at the bases Abd: soft, nontender Ext: no edema CBC, BMP 07/22/16 05:35 07/22/16 05:35 Active Medications Acetaminophen (Tylenol -) 650 mg PO Q6H PRN PRN Reason: FEVER OR PAIN Albuterol/Ipratropium (Duoneb -) 1 amp NEB Q6H PRN PRN Reason: SHORTNESS OF BREATH Amino Acids (Prosource No Carb Liquid Pkt) 30 ml PO BID@0800,1730 [facility] Last Admin: 07/23/16 09:00 Dose: Not Given Apixaban (Eliquis -) 2.5 mg PO BID [facility] Last Admin: 07/23/16 11:33 Dose: 2.5 mg Ascorbic Acid (Vitamin C -) 500 mg PO DAILY [facility] Last Admin: 07/23/16 11:30 Dose: 500 mg Aspirin (Asa -) 81 mg PO DAILY [facility] Last Admin: 07/23/16 11:31 Dose: 81 mg Cefepime HCl (Maxipime 1gm Ivpb Pre-Docked) 1 gm IVPB Q8H-IV [facility] PRN Reason: Protocol Last Admin: 07/23/16 12:45 Dose: 1 gm Citalopram Hydrobromide (Celexa -) 10 mg PO DAILY [facility] Last Admin: 07/23/16 11:32 Dose: 10 mg Clonazepam (Klonopin -) 0.5 mg PO TID [facility] Last Admin: 07/23/16 05:58 Dose: 0.5 mg Clonidine HCl (Catapres Tts Patch -) 0.1 mg TD Q7D@1000 [facility] Digoxin (Lanoxin -) 0.125 mg PO Q2D [facility] Last Admin: 07/22/16 09:54 Dose: 0.125 mg Docusate Sodium (Colace -) 300 mg PO HS [facility] Last Admin: 07/22/16 22:06 Dose: 300 mg Fat Emulsion Intravenous (Intralipid -) 250 ml IV DAILY@2200 [facility] Last Admin: 07/22/16 22:05 Dose: 250 ml Ferrous Sulfate (Feosol -) 325 mg PO DAILY@0800 [facility] Last Admin: 07/23/16 09:00 Dose: Not Given Folic Acid (Folic Acid -) 1 mg PO DAILY [facility] Last Admin: 07/23/16 12:45 Dose: 1 mg Metronidazole (Flagyl 500mg Premixed Ivpb -) 100 mls @ 100 mls/hr IVPB Q8H-IV [facility] Last Admin: 07/23/16 11:23 Dose: 100 mls/hr Amino Acids (Clinimix -) 1,000 mls @ 42 mls/hr IV Q24H [facility] Last Admin: 07/22/16 18:19 Dose: 42 mls/hr Lactobacillus Acidophilus (Bacid -) 1 tab PO DAILY [facility] Last Admin: 07/23/16 11:31 Dose: 1 tab Lorazepam (Ativan Injection -) 0.5 mg IM DAILY PRN PRN Reason: ANXIETY Magnesium Oxide (Mag-Ox -) 400 mg PO BID [facility] Last Admin: 07/23/16 11:30 Dose: 400 mg Megestrol Acetate (Megace Oral Suspension -) 400 mg PO DAILY [facility] Last Admin: 07/23/16 11:30 Dose: 400 mg Metoprolol Tartrate (Lopressor -) 25 mg PO BID [facility] Last Admin: 07/23/16 11:31 Dose: 25 mg Mirtazapine (Remeron -) 7.5 mg PO HS [facility] Last Admin: 07/22/16 22:06 Dose: 7.5 mg Multivitamins/Minerals/Vitamin C (Tab-A-Vit -) 1 tab PO DAILY [facility] Last Admin: 07/23/16 11:30 Dose: 1 tab Nystatin/Triamcinolone Acetonide (Mycolog Ii Cream -) 1 applic TP BID [facility] Last Admin: 07/23/16 11:48 Dose: 1 applic Ondansetron HCl (Zofran Injection) 4 mg IVPB Q4H PRN PRN Reason: NAUSEA AND/OR VOMITING Last Admin: 07/15/16 19:09 Dose: 4 mg A/P Pelvic Abscess h/o Uterine Rupture r/o UTI Pleural Effusions Atelectasis - antibiotics per ID - monitor fever curve, WBC trend - aspiration precautions - incentive spirometry - DVT prophylaxis - agree with hospice evaluation
[2016-07-23] MEDS: AMINO ACIDS 4.25%/D5W 1,000 ML IV SCH ×2 (15:15→17:35)
[2016-07-23] MEDS: MIRTAZAPINE 15 MG TABLET (FP) PO SCH (22:31)
[2016-07-23] MEDS: DOCUSATE SODIUM 100 MG CAPSULE (FP) PO SCH (22:31)
[2016-07-23] MEDS: FAT EMULSIONS 20% 250 ML PREMIX INFUS.BAG IV SCH (22:32)
[2016-07-24] MEDS: CEFEPIME 1 GM/100 ML BAG PRE-DOCKED IVPB SCH ×3 (01:57→17:06)
[2016-07-24] MEDS: METRONIDAZOLE 500 MG PREMIXED 100 ML IVPB SCH ×3 (01:57→18:23)
[2016-07-24] MEDS: clonazePAM 0.5 MG TABLET PO SCH ×3 (05:42→23:39)
--- NOTE | 2016-07-24 08:59 | PN ---
Progress Note, Physician - Current Medication List Current Medications: Active Medications Acetaminophen (Tylenol -) 650 mg PO Q6H PRN PRN Reason: FEVER OR PAIN Albuterol/Ipratropium (Duoneb -) 1 amp NEB Q6H PRN PRN Reason: SHORTNESS OF BREATH Amino Acids (Prosource No Carb Liquid Pkt) 30 ml PO BID@0800,1730 [facility] Last Admin: 07/23/16 16:50 Dose: 30 ml Apixaban (Eliquis -) 2.5 mg PO BID [facility] Last Admin: 07/23/16 22:32 Dose: 2.5 mg Ascorbic Acid (Vitamin C -) 500 mg PO DAILY [facility] Last Admin: 07/23/16 11:30 Dose: 500 mg Aspirin (Asa -) 81 mg PO DAILY [facility] Last Admin: 07/23/16 11:31 Dose: 81 mg Cefepime HCl (Maxipime 1gm Ivpb Pre-Docked) 1 gm IVPB Q8H-IV [facility] PRN Reason: Protocol Last Admin: 07/24/16 01:57 Dose: 1 gm Citalopram Hydrobromide (Celexa -) 10 mg PO DAILY [facility] Last Admin: 07/23/16 11:32 Dose: 10 mg Clonazepam (Klonopin -) 0.5 mg PO TID [facility] Last Admin: 07/24/16 05:42 Dose: 0.5 mg Clonidine HCl (Catapres Tts Patch -) 0.1 mg TD Q7D@1000 [facility] Digoxin (Lanoxin -) 0.125 mg PO Q2D [facility] Last Admin: 07/22/16 09:54 Dose: 0.125 mg Docusate Sodium (Colace -) 300 mg PO HS [facility] Last Admin: 07/23/16 22:31 Dose: 300 mg Fat Emulsion Intravenous (Intralipid -) 250 ml IV DAILY@2200 [facility] Last Admin: 07/23/16 22:32 Dose: 250 ml Ferrous Sulfate (Feosol -) 325 mg PO DAILY@0800 [facility] Last Admin: 07/23/16 09:00 Dose: Not Given Folic Acid (Folic Acid -) 1 mg PO DAILY [facility] Last Admin: 07/23/16 12:45 Dose: 1 mg Metronidazole (Flagyl 500mg Premixed Ivpb -) 100 mls @ 100 mls/hr IVPB Q8H-IV [facility] Last Admin: 07/24/16 01:57 Dose: 100 mls/hr Amino Acids (Clinimix -) 1,000 mls @ 42 mls/hr IV Q24H [facility] Last Admin: 07/23/16 17:35 Dose: 42 mls/hr Lactobacillus Acidophilus (Bacid -) 1 tab PO DAILY [facility] Last Admin: 07/23/16 11:31 Dose: 1 tab Lorazepam (Ativan Injection -) 0.5 mg IM DAILY PRN PRN Reason: ANXIETY Last Admin: 07/23/16 18:07 Dose: 0.5 mg Magnesium Oxide (Mag-Ox -) 400 mg PO BID [facility] Last Admin: 07/23/16 22:31 Dose: 400 mg Megestrol Acetate (Megace Oral Suspension -) 400 mg PO DAILY [facility] Last Admin: 07/23/16 11:30 Dose: 400 mg Metoprolol Tartrate (Lopressor -) 25 mg PO BID [facility] Last Admin: 07/23/16 22:31 Dose: 25 mg Mirtazapine (Remeron -) 7.5 mg PO HS [facility] Last Admin: 07/23/16 22:31 Dose: 7.5 mg Multivitamins/Minerals/Vitamin C (Tab-A-Vit -) 1 tab PO DAILY [facility] Last Admin: 07/23/16 11:30 Dose: 1 tab Nystatin/Triamcinolone Acetonide (Mycolog Ii Cream -) 1 applic TP BID [facility] Last Admin: 07/23/16 22:32 Dose: 1 applic Ondansetron HCl (Zofran Injection) 4 mg IVPB Q4H PRN PRN Reason: NAUSEA AND/OR VOMITING Last Admin: 07/15/16 19:09 Dose: 4 mg - Objective Vital Signs: Vital Signs Temperature 98.6 F 07/23/16 22:00 Pulse Rate 94 H 07/23/16 22:00 Respiratory Rate 20 07/23/16 22:00 Blood Pressure 122/77 07/23/16 22:00 O2 Sat by Pulse Oximetry (%) 95 07/23/16 22:00 Cardiovascular: Yes: S1, S2 Respiratory: Yes: Diminished, On Nasal O2 Gastrointestinal: Yes: Normal Bowel Sounds, Soft. No: Tenderness Labs: CBC, BMP 07/22/16 05:35 07/22/16 05:35 INR, PTT INR 1.96 (0.82-1.09) H 07/15/16 07:40 Problem List - Problems (1) Pelvic abscess in female Assessment/Plan: THIS IS A CHRONICALLY ILL WOMAN WITH POOR APPETITE, UTERINE ABSCESS WITH JES DRAIN, ANXIETY DISORDER, WEAKNESS, SEPSIS TREATED WITH IV ABX. SHE IS HIGH RISK FOR AND SURGICAL PROCEDURE. 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 Code(s): N73.9 - FEMALE PELVIC INFLAMMATORY DISEASE, UNSPECIFIED (2) Intra-abdominal abscess Assessment/Plan: ABOVE Code(s): K65.1 - PERITONEAL ABSCESS (3) Poor nutrition Assessment/Plan: FAMILY TO DECIDE ON PEG Code(s): E63.9 - NUTRITIONAL DEFICIENCY, UNSPECIFIED (4) Afib Assessment/Plan: ATRIAL FLUTTER (WAS ON ELIQUIS), Code(s): I48.91 - UNSPECIFIED ATRIAL FIBRILLATION
[2016-07-24] MEDS: MAGNESIUM OXIDE 400 MG TABLET (FP) PO SCH ×2 (09:08→23:39)
[2016-07-24] MEDS: MULTIVITAMINS (DAILY MVI) TABLET (FP) PO SCH (09:08)
[2016-07-24] MEDS: ASCORBIC ACID 500 MG TABLET (FP) PO SCH (09:08)
[2016-07-24] MEDS: MEGESTROL ACETATE 400 MG/10 ML UNIT DOSE CUP PO SCH (09:08)
[2016-07-24] MEDS: FERROUS SO4 325 MG TABLET (FP) PO SCH (09:09)
[2016-07-24] MEDS: DIGOXIN 0.125 MG TABLET (FP) PO SCH (09:09)
[2016-07-24] MEDS: LACTOBACILLUS ACIDOPHILUS 1 EACH TAB (FP) PO SCH (09:09)
[2016-07-24] MEDS: METOPROLOL TARTRATE 25 MG TABLET (FP) PO SCH ×2 (09:09→23:39)
[2016-07-24] MEDS: CITALOPRAM HYDROBROMIDE 10 MG TABLET (FP) PO SCH (09:10)
[2016-07-24] MEDS: ASPIRIN 81 MG CHEWABLE TABLETS PO SCH (09:10)
[2016-07-24] MEDS: AMINO ACIDS/PROTEIN HYDROLYS 30 ML LIQUID.PKT PO SCH ×2 (09:10→17:12)
[2016-07-24] MEDS: APIXABAN 2.5 MG TABLET PO SCH ×2 (09:11→23:39)
[2016-07-24] MEDS: FOLIC ACID 1 MG TABLET (FP) PO SCH (09:11)
[2016-07-24] MEDS: NYSTATIN/TRIAMCINOLONE TOPICAL CREAM 15 GM TUBE TP SCH ×2 (12:15→23:40)
--- NOTE | 2016-07-24 12:30 | PN ---
Progress Note (short form) - Note Progress Note: PULMONARY Lethargic but arousable. Low grade temp yesterday but afebrile since. Last Vital Signs Temp Pulse Resp BP Pulse Ox 98.4 F 80 18 109/60 95 07/24/16 10:00 07/24/16 10:00 07/24/16 10:00 07/24/16 10:00 07/23/16 22:00 Gen: lethargic Heart: RRR Lung: decreased breath sounds at the bases Abd: soft, nontender Ext: no edema CBC, BMP 07/22/16 05:35 07/22/16 05:35 Active Medications Acetaminophen (Tylenol -) 650 mg PO Q6H PRN PRN Reason: FEVER OR PAIN Amino Acids (Prosource No Carb Liquid Pkt) 30 ml PO BID@0800,1730 [facility] Last Admin: 07/24/16 09:10 Dose: 30 ml Apixaban (Eliquis -) 2.5 mg PO BID [facility] Last Admin: 07/24/16 09:11 Dose: 2.5 mg Ascorbic Acid (Vitamin C -) 500 mg PO DAILY [facility] Last Admin: 07/24/16 09:08 Dose: 500 mg Aspirin (Asa -) 81 mg PO DAILY [facility] Last Admin: 07/24/16 09:10 Dose: 81 mg Cefepime HCl (Maxipime 1gm Ivpb Pre-Docked) 1 gm IVPB Q8H-IV [facility] PRN Reason: Protocol Last Admin: 07/24/16 10:59 Dose: 1 gm Citalopram Hydrobromide (Celexa -) 10 mg PO DAILY [facility] Last Admin: 07/24/16 09:10 Dose: 10 mg Clonazepam (Klonopin -) 0.5 mg PO TID [facility] Last Admin: 07/24/16 05:42 Dose: 0.5 mg Clonidine HCl (Catapres Tts Patch -) 0.1 mg TD Q7D@1000 [facility] Digoxin (Lanoxin -) 0.125 mg PO Q2D [facility] Last Admin: 07/24/16 09:09 Dose: 0.125 mg Docusate Sodium (Colace -) 300 mg PO HS [facility] Last Admin: 07/23/16 22:31 Dose: 300 mg Fat Emulsion Intravenous (Intralipid -) 250 ml IV DAILY@2200 [facility] Last Admin: 07/23/16 22:32 Dose: 250 ml Ferrous Sulfate (Feosol -) 325 mg PO DAILY@0800 [facility] Last Admin: 07/24/16 09:09 Dose: 325 mg Folic Acid (Folic Acid -) 1 mg PO DAILY [facility] Last Admin: 07/24/16 09:11 Dose: 1 mg Metronidazole (Flagyl 500mg Premixed Ivpb -) 100 mls @ 100 mls/hr IVPB Q8H-IV [facility] Last Admin: 07/24/16 09:11 Dose: 100 mls/hr Amino Acids (Clinimix -) 1,000 mls @ 42 mls/hr IV Q24H [facility] Last Admin: 07/23/16 17:35 Dose: 42 mls/hr Lactobacillus Acidophilus (Bacid -) 1 tab PO DAILY [facility] Last Admin: 07/24/16 09:09 Dose: 1 tab Lorazepam (Ativan Injection -) 0.5 mg IM DAILY PRN PRN Reason: ANXIETY Last Admin: 07/23/16 18:07 Dose: 0.5 mg Magnesium Oxide (Mag-Ox -) 400 mg PO BID [facility] Last Admin: 07/24/16 09:08 Dose: 400 mg Megestrol Acetate (Megace Oral Suspension -) 400 mg PO DAILY [facility] Last Admin: 07/24/16 09:08 Dose: 400 mg Metoprolol Tartrate (Lopressor -) 25 mg PO BID [facility] Last Admin: 07/24/16 09:09 Dose: 25 mg Mirtazapine (Remeron -) 7.5 mg PO HS [facility] Last Admin: 07/23/16 22:31 Dose: 7.5 mg Multivitamins/Minerals/Vitamin C (Tab-A-Vit -) 1 tab PO DAILY [facility] Last Admin: 07/24/16 09:08 Dose: 1 tab Nystatin/Triamcinolone Acetonide (Mycolog Ii Cream -) 1 applic TP BID [facility] Last Admin: 07/24/16 12:15 Dose: 1 applic Ondansetron HCl (Zofran Injection) 4 mg IVPB Q4H PRN PRN Reason: NAUSEA AND/OR VOMITING Last Admin: 07/15/16 19:09 Dose: 4 mg A/P Pelvic Abscess h/o Uterine Rupture r/o UTI Pleural Effusions Atelectasis - antibiotics per ID - monitor fever curve, WBC trend - aspiration precautions - incentive spirometry - DVT prophylaxis - agree with hospice evaluation
[2016-07-24] MEDS: AMINO ACIDS 4.25%/D5W 1,000 ML IV SCH ×2 (15:10→18:18)
[2016-07-24] MEDS: DOCUSATE SODIUM 100 MG CAPSULE (FP) PO SCH (23:39)
[2016-07-24] MEDS: MIRTAZAPINE 15 MG TABLET (FP) PO SCH (23:39)
[2016-07-24] MEDS: FAT EMULSIONS 20% 250 ML PREMIX INFUS.BAG IV SCH (23:40)
[2016-07-25] MEDS: METRONIDAZOLE 500 MG PREMIXED 100 ML IVPB SCH ×3 (02:19→17:26)
[2016-07-25] MEDS: CEFEPIME 1 GM/100 ML BAG PRE-DOCKED IVPB SCH ×3 (02:19→17:25)
[2016-07-25] MEDS: clonazePAM 0.5 MG TABLET PO SCH ×3 (05:11→23:42)
--- NOTE | 2016-07-25 08:59 | PN ---
Progress Note, Physician Chief Complaint: IN A BAD MOOD - Current Medication List Current Medications: Active Medications Acetaminophen (Tylenol -) 650 mg PO Q6H PRN PRN Reason: FEVER OR PAIN Amino Acids (Prosource No Carb Liquid Pkt) 30 ml PO BID@0800,1730 [facility] Last Admin: 07/24/16 17:12 Dose: 30 ml Apixaban (Eliquis -) 2.5 mg PO BID [facility] Last Admin: 07/24/16 23:39 Dose: 2.5 mg Ascorbic Acid (Vitamin C -) 500 mg PO DAILY [facility] Last Admin: 07/24/16 09:08 Dose: 500 mg Aspirin (Asa -) 81 mg PO DAILY [facility] Last Admin: 07/24/16 09:10 Dose: 81 mg Cefepime HCl (Maxipime 1gm Ivpb Pre-Docked) 1 gm IVPB Q8H-IV [facility] PRN Reason: Protocol Last Admin: 07/25/16 02:19 Dose: 1 gm Citalopram Hydrobromide (Celexa -) 10 mg PO DAILY [facility] Last Admin: 07/24/16 09:10 Dose: 10 mg Clonazepam (Klonopin -) 0.5 mg PO TID [facility] Last Admin: 07/25/16 05:11 Dose: 0.5 mg Clonidine HCl (Catapres Tts Patch -) 0.1 mg TD Q7D@1000 [facility] Digoxin (Lanoxin -) 0.125 mg PO Q2D [facility] Last Admin: 07/24/16 09:09 Dose: 0.125 mg Docusate Sodium (Colace -) 300 mg PO HS [facility] Last Admin: 07/24/16 23:39 Dose: 300 mg Fat Emulsion Intravenous (Intralipid -) 250 ml IV DAILY@2200 [facility] Last Admin: 07/24/16 23:40 Dose: 250 ml Ferrous Sulfate (Feosol -) 325 mg PO DAILY@0800 [facility] Last Admin: 07/24/16 09:09 Dose: 325 mg Folic Acid (Folic Acid -) 1 mg PO DAILY [facility] Last Admin: 07/24/16 09:11 Dose: 1 mg Metronidazole (Flagyl 500mg Premixed Ivpb -) 100 mls @ 100 mls/hr IVPB Q8H-IV [facility] Last Admin: 07/25/16 02:19 Dose: 100 mls/hr Amino Acids (Clinimix -) 1,000 mls @ 42 mls/hr IV Q24H [facility] Last Admin: 07/24/16 18:18 Dose: 42 mls/hr Lactobacillus Acidophilus (Bacid -) 1 tab PO DAILY [facility] Last Admin: 07/24/16 09:09 Dose: 1 tab Magnesium Oxide (Mag-Ox -) 400 mg PO BID [facility] Last Admin: 07/24/16 23:39 Dose: 400 mg Megestrol Acetate (Megace Oral Suspension -) 400 mg PO DAILY [facility] Last Admin: 07/24/16 09:08 Dose: 400 mg Metoprolol Tartrate (Lopressor -) 25 mg PO BID [facility] Last Admin: 07/24/16 23:39 Dose: 25 mg Mirtazapine (Remeron -) 7.5 mg PO HS [facility] Last Admin: 07/24/16 23:39 Dose: 7.5 mg Multivitamins/Minerals/Vitamin C (Tab-A-Vit -) 1 tab PO DAILY [facility] Last Admin: 07/24/16 09:08 Dose: 1 tab Nystatin/Triamcinolone Acetonide (Mycolog Ii Cream -) 1 applic TP BID [facility] Last Admin: 07/24/16 23:40 Dose: 1 applic Ondansetron HCl (Zofran Injection) 4 mg IVPB Q4H PRN PRN Reason: NAUSEA AND/OR VOMITING Last Admin: 07/15/16 19:09 Dose: 4 mg - Objective Vital Signs: Vital Signs Temperature 98.9 F 07/25/16 06:00 Pulse Rate 94 H 07/25/16 06:00 Respiratory Rate 18 07/25/16 06:00 Blood Pressure 149/80 07/25/16 06:00 O2 Sat by Pulse Oximetry (%) 94 L 07/24/16 22:00 Cardiovascular: Yes: WNL Respiratory: Yes: WNL Gastrointestinal: Yes: WNL Labs: CBC, BMP 07/22/16 05:35 07/22/16 05:35 INR, PTT INR 1.96 (0.82-1.09) H 07/15/16 07:40 Problem List - Problems (1) CHF (congestive heart failure) Code(s): I50.9 - HEART FAILURE, UNSPECIFIED (2) Fever Code(s): R50.9 - FEVER, UNSPECIFIED (3) Afib Code(s): I48.91 - UNSPECIFIED ATRIAL FIBRILLATION (4) HTN (hypertension) Code(s): I10 - ESSENTIAL (PRIMARY) HYPERTENSION Qualifiers: Hypertension type: essential hypertension Qualified Code(s): I10 - Essential (primary) hypertension (5) Intra-abdominal abscess Code(s): K65.1 - PERITONEAL ABSCESS Assessment/Plan (1) Pelvic abscess in female Assessment/Plan: THIS IS A CHRONICALLY ILL WOMAN WITH POOR APPETITE, UTERINE ABSCESS WITH JES DRAIN, ANXIETY DISORDER, WEAKNESS, SEPSIS TREATED WITH IV ABX. SHE IS HIGH RISK FOR AND SURGICAL PROCEDURE. 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 Code(s): N73.9 - FEMALE PELVIC INFLAMMATORY DISEASE, UNSPECIFIED (2) Intra-abdominal abscess Assessment/Plan: ABOVE Code(s): K65.1 - PERITONEAL ABSCESS (3) Poor nutrition Assessment/Plan: FAMILY TO DECIDE ON PEG Code(s): E63.9 - NUTRITIONAL DEFICIENCY, UNSPECIFIED (4) Afib Assessment/Plan: ATRIAL FLUTTER (WAS ON ELIQUIS), Code(s): I48.91 - UNSPECIFIED ATRIAL FIBRILLATION FOR PLACEMENT TO [facility] PALLIATIVE CARE NOTE PASTOR GATES
[2016-07-25] MEDS ORDERED: PT OWN MED DRAWER 7, Y5N ONE ×2 (09:06→23:05)
[2016-07-25] MEDS: MEGESTROL ACETATE 400 MG/10 ML UNIT DOSE CUP PO SCH ×2 (11:01→11:29)
[2016-07-25] MEDS: NYSTATIN/TRIAMCINOLONE TOPICAL CREAM 15 GM TUBE TP SCH (11:01)
[2016-07-25] MEDS: AMINO ACIDS/PROTEIN HYDROLYS 30 ML LIQUID.PKT PO SCH ×2 (11:02→11:30)
[2016-07-25] MEDS: METOPROLOL TARTRATE 25 MG TABLET (FP) PO SCH ×2 (11:03→23:42)
[2016-07-25] MEDS: MULTIVITAMINS (DAILY MVI) TABLET (FP) PO SCH (11:03)
[2016-07-25] MEDS: APIXABAN 2.5 MG TABLET PO SCH ×2 (11:03→23:43)
[2016-07-25] MEDS: LACTOBACILLUS ACIDOPHILUS 1 EACH TAB (FP) PO SCH (11:03)
[2016-07-25] MEDS: ASCORBIC ACID 500 MG TABLET (FP) PO SCH (11:03)
[2016-07-25] MEDS: MAGNESIUM OXIDE 400 MG TABLET (FP) PO SCH ×2 (11:03→23:42)
[2016-07-25] MEDS: FOLIC ACID 1 MG TABLET (FP) PO SCH (11:03)
[2016-07-25] MEDS: ASPIRIN 81 MG CHEWABLE TABLETS PO SCH (11:03)
[2016-07-25] MEDS: CITALOPRAM HYDROBROMIDE 10 MG TABLET (FP) PO SCH (11:03)
[2016-07-25] MEDS: FERROUS SO4 325 MG TABLET (FP) PO SCH (11:03)
[2016-07-25] MEDS: AMINO ACIDS 4.25%/D5W 1,000 ML IV SCH (15:54)
[2016-07-25] MEDS: MIRTAZAPINE 15 MG TABLET (FP) PO SCH (23:42)
[2016-07-25] MEDS: DOCUSATE SODIUM 100 MG CAPSULE (FP) PO SCH (23:43)
[2016-07-26] MEDS: FAT EMULSIONS 20% 250 ML PREMIX INFUS.BAG IV SCH ×2 (00:11→22:39)
[2016-07-26] MEDS: NYSTATIN/TRIAMCINOLONE TOPICAL CREAM 15 GM TUBE TP SCH ×3 (00:11→22:41)
[2016-07-26] MEDS: AMINO ACIDS 4.25%/D5W 1,000 ML IV SCH ×2 (02:57→14:53)
[2016-07-26] MEDS: CEFEPIME 1 GM/100 ML BAG PRE-DOCKED IVPB SCH ×3 (03:01→18:20)
[2016-07-26] MEDS: METRONIDAZOLE 500 MG PREMIXED 100 ML IVPB SCH ×3 (04:10→18:19)
[2016-07-26] MEDS: clonazePAM 0.5 MG TABLET PO SCH ×3 (06:52→22:40)
[2016-07-26 08:05] LABS: MCH 27.4 pg (25.7-33.7); MEAN CELL VOLUME 85.6 fl (80-96); PLATELET COUNT 321 K/MM3 (134-434); WHITE BLOOD COUNT 13.5 K/mm3 (4.0-10.0)
[2016-07-26] MEDS ORDERED: PT OWN MED DRAWER 7, Y5N ONE ×2 (08:15→12:48)
[2016-07-26 08:36] LABS: ANION GAP 8 (8-16); CO2 24 mmol/L (21-32); CREATININE 0.5 mg/dL (0.55-1.02); GLUCOSE,RANDOM 103 mg/dL (74-106); SGOT/AST 9 U/L (15-37); SGPT/ALT 7 U/L (12-78)
[2016-07-26 08:39] LABS: ALK PHOS 44 U/L (45-117); BILIRUBIN,TOTAL 0.2 mg/dL (0.2-1.0); TOT PROT 5.8 g/dl (6.4-8.2)
[2016-07-26] MEDS: FOLIC ACID 1 MG TABLET (FP) PO SCH (11:18)
[2016-07-26] MEDS: APIXABAN 2.5 MG TABLET PO SCH ×2 (11:18→22:39)
[2016-07-26] MEDS: CITALOPRAM HYDROBROMIDE 10 MG TABLET (FP) PO SCH (11:18)
[2016-07-26] MEDS: LACTOBACILLUS ACIDOPHILUS 1 EACH TAB (FP) PO SCH (11:18)
[2016-07-26] MEDS: MAGNESIUM OXIDE 400 MG TABLET (FP) PO SCH ×2 (11:18→22:40)
[2016-07-26] MEDS: ASCORBIC ACID 500 MG TABLET (FP) PO SCH (11:18)
[2016-07-26] MEDS: DIGOXIN 0.125 MG TABLET (FP) PO SCH (11:18)
[2016-07-26] MEDS: MULTIVITAMINS (DAILY MVI) TABLET (FP) PO SCH (11:18)
[2016-07-26] MEDS: FERROUS SO4 325 MG TABLET (FP) PO SCH (11:18)
[2016-07-26] MEDS: METOPROLOL TARTRATE 25 MG TABLET (FP) PO SCH ×2 (11:19→22:40)
[2016-07-26] MEDS: ASPIRIN 81 MG CHEWABLE TABLETS PO SCH (11:19)
[2016-07-26 12:15] LABS: METAMYELOCYTE 2 % (0-2)
[2016-07-26 12:16] LABS: PLATELET ESTIMATE ADEQUATE (NORMAL)
--- NOTE | 2016-07-26 16:05 | PN ---
Progress Note, Physician Chief Complaint: TRANSFERRING FOR PICC LINE - Current Medication List Current Medications: Active Medications Acetaminophen (Tylenol -) 650 mg PO Q6H PRN PRN Reason: FEVER OR PAIN Apixaban (Eliquis -) 2.5 mg PO BID [facility] Last Admin: 07/26/16 11:18 Dose: 2.5 mg Ascorbic Acid (Vitamin C -) 500 mg PO DAILY [facility] Last Admin: 07/26/16 11:18 Dose: 500 mg Aspirin (Asa -) 81 mg PO DAILY [facility] Last Admin: 07/26/16 11:19 Dose: 81 mg Cefepime HCl (Maxipime 1gm Ivpb Pre-Docked) 1 gm IVPB Q8H-IV [facility] PRN Reason: Protocol Last Admin: 07/26/16 11:19 Dose: 1 gm Citalopram Hydrobromide (Celexa -) 10 mg PO DAILY [facility] Last Admin: 07/26/16 11:18 Dose: 10 mg Clonazepam (Klonopin -) 0.5 mg PO TID [facility] Last Admin: 07/26/16 14:53 Dose: 0.5 mg Clonidine HCl (Catapres Tts Patch -) 0.1 mg TD Q7D@1000 [facility] Digoxin (Lanoxin -) 0.125 mg PO Q2D [facility] Last Admin: 07/26/16 11:18 Dose: 0.125 mg Fat Emulsion Intravenous (Intralipid -) 250 ml IV DAILY@2200 [facility] Last Admin: 07/26/16 00:11 Dose: 250 ml Ferrous Sulfate (Feosol -) 325 mg PO DAILY@0800 [facility] Last Admin: 07/26/16 11:18 Dose: 325 mg Folic Acid (Folic Acid -) 1 mg PO DAILY [facility] Last Admin: 07/26/16 11:18 Dose: 1 mg Metronidazole (Flagyl 500mg Premixed Ivpb -) 100 mls @ 100 mls/hr IVPB Q8H-IV [facility] Last Admin: 07/26/16 11:17 Dose: 100 mls/hr Amino Acids (Clinimix -) 1,000 mls @ 42 mls/hr IV Q24H [facility] Last Admin: 07/26/16 14:53 Dose: Not Given Lactobacillus Acidophilus (Bacid -) 1 tab PO DAILY [facility] Last Admin: 07/26/16 11:18 Dose: 1 tab Magnesium Oxide (Mag-Ox -) 400 mg PO BID [facility] Last Admin: 07/26/16 11:18 Dose: 400 mg Metoprolol Tartrate (Lopressor -) 25 mg PO BID [facility] Last Admin: 07/26/16 11:19 Dose: 25 mg Mirtazapine (Remeron -) 7.5 mg PO HS [facility] Last Admin: 07/25/16 23:42 Dose: 7.5 mg Multivitamins/Minerals/Vitamin C (Tab-A-Vit -) 1 tab PO DAILY [facility] Last Admin: 07/26/16 11:18 Dose: 1 tab Nystatin/Triamcinolone Acetonide (Mycolog Ii Cream -) 1 applic TP BID [facility] Last Admin: 07/26/16 11:19 Dose: 1 applic Ondansetron HCl (Zofran Injection) 4 mg IVPB Q4H PRN PRN Reason: NAUSEA AND/OR VOMITING Last Admin: 07/15/16 19:09 Dose: 4 mg - Objective Vital Signs: Vital Signs Temperature 98.9 F 07/26/16 14:14 Pulse Rate 86 07/26/16 14:14 Respiratory Rate 22 07/26/16 14:14 Blood Pressure 119/70 07/26/16 14:14 O2 Sat by Pulse Oximetry (%) 91 L 07/26/16 10:00 Constitutional: Yes: Mild Distress Eyes: Yes: WNL HENT: Yes: WNL Neck: Yes: WNL Cardiovascular: Yes: Pulse Irregular Respiratory: Yes: WNL, Cough Gastrointestinal: Yes: Distention, Tenderness Genitourinary: Yes: Incontinence Musculoskeletal: Yes: Muscle Weakness Extremities: Yes: WNL Edema: No Peripheral Pulses WNL: Yes Integumentary: Yes: Other Wound/Incision: Yes: Dressing Dry and Intact, Draining Neurological: Yes: Pre-Existing Deficit, Unsteady Gait, Weakness ...Motor Strength: LLE, RLE Psychiatric: Yes: Agitated, Other Labs: CBC, BMP 07/26/16 06:50 07/26/16 06:50 INR, PTT INR 1.96 (0.82-1.09) H 07/15/16 07:40 Problem List - Problems (1) Fever Code(s): R50.9 - FEVER, UNSPECIFIED (2) Severe sepsis Code(s): A41.9 - SEPSIS, UNSPECIFIED ORGANISM R65.20 - SEVERE SEPSIS WITHOUT SEPTIC SHOCK (3) Afib Code(s): I48.91 - UNSPECIFIED ATRIAL FIBRILLATION (4) Anemia Code(s): D64.9 - ANEMIA, UNSPECIFIED Qualifiers: Other causes of anemia: chronic disease, other (5) Anxiety Code(s): F41.9 - ANXIETY DISORDER, UNSPECIFIED (6) Uterine abscess Code(s): N71.9 - INFLAMMATORY DISEASE OF UTERUS, UNSPECIFIED (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
[2016-07-26] MEDS: MIRTAZAPINE 15 MG TABLET (FP) PO SCH (22:41)
[2016-07-27] MEDS: METRONIDAZOLE 500 MG PREMIXED 100 ML IVPB SCH ×3 (01:28→17:58)
[2016-07-27] MEDS: CEFEPIME 1 GM/100 ML BAG PRE-DOCKED IVPB SCH ×3 (01:28→18:01)
[2016-07-27] MEDS: clonazePAM 0.5 MG TABLET PO SCH ×2 (06:33→14:50)
[2016-07-27] MEDS ORDERED: PT OWN MED DRAWER 7, Y5N ONE (11:28)
[2016-07-27] MEDS: METOPROLOL TARTRATE 25 MG TABLET (FP) PO SCH (11:30)
[2016-07-27] MEDS: CITALOPRAM HYDROBROMIDE 10 MG TABLET (FP) PO SCH (11:30)
[2016-07-27] MEDS: FERROUS SO4 325 MG TABLET (FP) PO SCH (11:30)
[2016-07-27] MEDS: MAGNESIUM OXIDE 400 MG TABLET (FP) PO SCH (11:30)
[2016-07-27] MEDS ORDERED: FUROSEMIDE 40 MG/4 ML INJECTABLE VIAL IVPUSH ONE (11:30)
[2016-07-27] MEDS: FOLIC ACID 1 MG TABLET (FP) PO SCH (11:30)
[2016-07-27] MEDS: MULTIVITAMINS (DAILY MVI) TABLET (FP) PO SCH (11:31)
[2016-07-27] MEDS: LACTOBACILLUS ACIDOPHILUS 1 EACH TAB (FP) PO SCH (11:31)
[2016-07-27] MEDS: NYSTATIN/TRIAMCINOLONE TOPICAL CREAM 15 GM TUBE TP SCH (11:31)
[2016-07-27] MEDS: APIXABAN 2.5 MG TABLET PO SCH (11:32)
[2016-07-27] MEDS: ASCORBIC ACID 500 MG TABLET (FP) PO SCH (11:32)
[2016-07-27] MEDS: ASPIRIN 81 MG CHEWABLE TABLETS PO SCH (11:32)
--- NOTE | 2016-07-27 11:33 | PN ---
Progress Note, Physician Chief Complaint: AWAKE LETHARGIC - Current Medication List Current Medications: Active Medications Acetaminophen (Tylenol -) 650 mg PO Q6H PRN PRN Reason: FEVER OR PAIN Apixaban (Eliquis -) 2.5 mg PO BID [facility] Last Admin: 07/26/16 22:39 Dose: 2.5 mg Ascorbic Acid (Vitamin C -) 500 mg PO DAILY [facility] Last Admin: 07/26/16 11:18 Dose: 500 mg Aspirin (Asa -) 81 mg PO DAILY [facility] Last Admin: 07/26/16 11:19 Dose: 81 mg Cefepime HCl (Maxipime 1gm Ivpb Pre-Docked) 1 gm IVPB Q8H-IV [facility] PRN Reason: Protocol Last Admin: 07/27/16 01:28 Dose: 1 gm Citalopram Hydrobromide (Celexa -) 10 mg PO DAILY [facility] Last Admin: 07/26/16 11:18 Dose: 10 mg Clonazepam (Klonopin -) 0.5 mg PO TID [facility] Last Admin: 07/27/16 06:33 Dose: 0.5 mg Clonidine HCl (Catapres Tts Patch -) 0.1 mg TD Q7D@1000 [facility] Digoxin (Lanoxin -) 0.125 mg PO Q2D [facility] Last Admin: 07/26/16 11:18 Dose: 0.125 mg Fat Emulsion Intravenous (Intralipid -) 250 ml IV DAILY@2200 [facility] Last Admin: 07/26/16 22:39 Dose: 250 ml Ferrous Sulfate (Feosol -) 325 mg PO DAILY@0800 [facility] Last Admin: 07/26/16 11:18 Dose: 325 mg Folic Acid (Folic Acid -) 1 mg PO DAILY [facility] Last Admin: 07/26/16 11:18 Dose: 1 mg Furosemide (Lasix Injection -) 40 mg IVPUSH ONCE ONE Stop: 07/27/16 11:31 Metronidazole (Flagyl 500mg Premixed Ivpb -) 100 mls @ 100 mls/hr IVPB Q8H-IV [facility] Last Admin: 07/27/16 01:28 Dose: 100 mls/hr Amino Acids (Clinimix -) 1,000 mls @ 42 mls/hr IV Q24H [facility] Last Admin: 07/26/16 14:53 Dose: Not Given Potassium Chloride (Potassium Chloride 10 Meq Premix Ivpb -) 100 mls @ 100 mls/ hr IVPB Q60M [facility] Stop: 07/27/16 13:29 Lactobacillus Acidophilus (Bacid -) 1 tab PO DAILY [facility] Last Admin: 07/26/16 11:18 Dose: 1 tab Magnesium Oxide (Mag-Ox -) 400 mg PO BID [facility] Last Admin: 07/26/16 22:40 Dose: 400 mg Metoprolol Tartrate (Lopressor -) 25 mg PO BID [facility] Last Admin: 07/26/16 22:40 Dose: 25 mg Mirtazapine (Remeron -) 7.5 mg PO HS [facility] Last Admin: 07/26/16 22:41 Dose: 7.5 mg Multivitamins/Minerals/Vitamin C (Tab-A-Vit -) 1 tab PO DAILY [facility] Last Admin: 07/26/16 11:18 Dose: 1 tab Nystatin/Triamcinolone Acetonide (Mycolog Ii Cream -) 1 applic TP BID [facility] Last Admin: 07/26/16 22:41 Dose: 1 applic Ondansetron HCl (Zofran Injection) 4 mg IVPB Q4H PRN PRN Reason: NAUSEA AND/OR VOMITING Last Admin: 07/15/16 19:09 Dose: 4 mg - Objective Vital Signs: Vital Signs Temperature 97.3 F L 07/27/16 06:00 Pulse Rate 78 07/27/16 06:00 Respiratory Rate 16 07/27/16 06:00 Blood Pressure 137/64 07/27/16 06:00 O2 Sat by Pulse Oximetry (%) 94 L 07/26/16 20:00 Constitutional: Yes: Mild Distress Eyes: Yes: WNL HENT: Yes: WNL Neck: Yes: WNL Cardiovascular: Yes: Pulse Irregular Respiratory: Yes: Diminished, On Nasal O2, Poor Air Entry, SOB, Other Gastrointestinal: Yes: Distention, Tenderness ...Rectal Exam: Yes: Other Genitourinary: Yes: Other (DRAIN LLQ UTERINE ABSCESS) Musculoskeletal: Yes: Muscle Weakness Extremities: Yes: WNL Edema: Yes Edema: LLE: Trace, RLE: Trace Peripheral Pulses WNL: Yes Integumentary: Yes: Other Wound/Incision: Yes: Other Neurological: Yes: Pre-Existing Deficit, Weakness ...Motor Strength: LLE, RLE Psychiatric: Yes: Agitated Labs: CBC, BMP 07/26/16 06:50 07/26/16 06:50 INR, PTT INR 1.96 (0.82-1.09) H 07/15/16 07:40 Problem List - Problems (1) Fever Code(s): R50.9 - FEVER, UNSPECIFIED (2) Severe sepsis Code(s): A41.9 - SEPSIS, UNSPECIFIED ORGANISM R65.20 - SEVERE SEPSIS WITHOUT SEPTIC SHOCK (3) Afib Code(s): I48.91 - UNSPECIFIED ATRIAL FIBRILLATION (4) Anemia Code(s): D64.9 - ANEMIA, UNSPECIFIED Qualifiers: Other causes of anemia: chronic disease, other (5) Anxiety Code(s): F41.9 - ANXIETY DISORDER, UNSPECIFIED (6) Uterine abscess Code(s): N71.9 - INFLAMMATORY DISEASE OF UTERUS, UNSPECIFIED (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
[2016-07-27] MEDS: KCL 10 MEQ IVPB 100 ML IVPB SCH ×2 (12:43→14:50)
--- NOTE | 2016-07-27 15:37 | PN ---
Progress Note (short form) - Note Progress Note: Pt is an 80 year old female with hx of a-fib, HTN, and cholesterol who presents to the ER with abdominal pain and fever. 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 Cardio/Vascular: Yes: AFIB, HTN, Hyperlipdemia Gastrointestinal: Yes: Other (PERITONITIS, RUPTURED INFECTED UTERUS) Renal/: Yes: UTI (hx of ) Psych: Yes: Anxiety Musculoskeletal: Yes: Osteoarthritis - Past Surgical History Past Surgical History: Yes: Mastectomy (Right- for Cancer) Additional Surgical History: EX LAP - Smoking History Smoking history: Never smoked - Social History Usual Living Arrangement: Assisted Living Home Medications - Allergies Allergies/Adverse Reactions: Allergies Allergy/AdvReac Type Severity Reaction Status Date / Time Penicillins Allergy Verified 06/15/16 01:05 - Home Medications Home Medications: Ambulatory Orders Digoxin [Lanoxin -] 0.125 mg PO DAILY tablet 01/16/15 Magnesium Oxide [Mag-Ox -] 400 mg PO BID tablet 01/16/15 Multivitamins [Multivit ([facility] Formul[facility])] 1 tab PO DAILY tab 01/16/15 Apixaban [Eliquis] 2.5 mg PO BID 05/28/16 Citalopram Hydrobromide [Celexa -] 10 mg PO DAILY 05/28/16 Clonidine HCl 0.1 mg PO BID 05/28/16 Rosuvastatin [Crestor -] 5 mg PO HS tablet 06/01/16 Acetaminophen [Tylenol .Regular Strength -] 650 mg PO Q6H PRN #0 tablet Albuterol 2.5/Ipratropium 0.5 [Duoneb -] 1 amp NEB Q6H PRN #0 amp 07/05/16 Amino Acids/Protein Hydrolys [Prosource No Carb Liquid Pkt] 30 ml PO BID@0800, 1730 packet 07/05/16 Ascorbic Acid [Vitamin C -] 500 mg PO DAILY tablet 07/05/16 Clonazepam [Klonopin -] 0.5 mg PO TID #90 tablet MDD 3 07/05/16 Ferrous Sulfate [Feosol] 325 mg PO DAILY@0800 ud 07/05/16 Folic Acid - 1 mg PO DAILY tablet 07/05/16 Guaifenesin Dm [Robitussin Dm -] 10 ml PO Q8H PRN #0 cup 07/05/16 Lactobacillus Acidophilus [Bacid -] 1 tab PO DAILY tab 07/05/16 Megestrol Acetate Oral Susp [Megace Oral Suspension -] 400 mg PO DAILY cup Metoprolol Tartrate [Lopressor -] 25 mg PO BID tablet 07/05/16 Metronidazole [Flagyl -] 500 mg PO TID tablet 07/05/16 Mirtazapine [Remeron -] 7.5 mg PO HS tablet 07/05/16 Multivitamins [Multivit ([facility] Formul[facility])] 1 tab PO DAILY tab 07/05/16 Naph,Mb-Db/K pH,Mbdb [PHOS-NaK PACKET -] 1 packet PO DAILY pow 07/05/16 Nystatin/Triamcinolone Top Cr [Mycolog II -] 1 applic TP BID applic 07/05/16 Acetaminophen [Tylenol .Regular Strength -] 325 mg PO Q6H PRN 07/14/16 Aspirin [ASA -] 81 mg PO DAILY 07/14/16 Docusate Sodium [Colace Oral Solution -] 300 mg PO HS 07/14/16 Current Medications Generic Name Dose Route Start Last Admin Trade Name Freq PRN Reason Stop Dose Admin Acetaminophen 650 mg 07/14/16 21:27 Tylenol - PO Q6H PRN FEVER OR PAIN Apixaban 2.5 mg 07/14/16 22:00 07/27/16 11:32 Eliquis - PO 2.5 mg BID DANA Administration Ascorbic Acid 500 mg 07/15/16 10:00 07/27/16 11:32 Vitamin C - PO 500 mg DAILY DANA Administration Aspirin 81 mg 07/15/16 10:00 07/27/16 11:32 Asa - PO 81 mg DAILY DANA Administration Cefepime HCl 1 gm 07/15/16 12:00 07/27/16 18:01 Maxipime 1gm Ivpb Pre-Docked IVPB 1 gm Q8H-IV DANA Administration Protocol Citalopram Hydrobromide 10 mg 07/15/16 10:00 07/27/16 11:30 Celexa - PO 10 mg DAILY DANA Administration Clonazepam 0.5 mg 07/14/16 22:00 07/27/16 14:50 Klonopin - PO 0.5 mg TID DANA Administration Clonidine HCl 0.1 mg 07/21/16 10:00 Catapres Tts Patch - TD Q7D@1000 DANA Digoxin 0.125 mg 07/16/16 10:00 07/26/16 11:18 Lanoxin - PO 0.125 mg Q2D DANA Administration Fat Emulsion Intravenous 250 ml 07/15/16 22:00 07/26/16 22:39 Intralipid - IV 250 ml DAILY@2200 DANA Administration Ferrous Sulfate 325 mg 07/15/16 08:00 07/27/16 11:30 Feosol - PO 325 mg DAILY@0800 DANA Administration Folic Acid 1 mg 07/15/16 10:00 07/27/16 11:30 Folic Acid - PO 1 mg DAILY DANA Administration Furosemide 40 mg 07/28/16 01:00 Lasix Injection - IVPUSH 07/28/16 01:01 ONCE ONE Metronidazole 100 mls @ 100 mls/hr 07/15/16 18:00 07/27/16 17:58 Flagyl 500mg Premixed Ivpb - IVPB 100 mls/hr Q8H-IV DANA Administration Amino Acids 1,000 mls @ 42 mls/hr 07/15/16 15:15 07/27/16 17:59 Clinimix - IV 42 mls/hr Q24H DAAN Administration Lactobacillus Acidophilus 1 tab 07/15/16 10:00 07/27/16 11:31 Bacid - PO 1 tab DAILY DANA Administration Magnesium Oxide 400 mg 07/14/16 22:00 07/27/16 11:30 Mag-Ox - PO 400 mg BID DANA Administration Metoprolol Tartrate 25 mg 07/14/16 22:00 07/27/16 11:30 Lopressor - PO 25 mg BID DANA Administration Mirtazapine 7.5 mg 07/14/16 22:00 07/26/16 22:41 Remeron - PO 7.5 mg HS DANA Administration Multivitamins/Minerals/Vitamin C 1 tab 07/15/16 10:00 07/27/16 11:31 Tab-A-Vit - PO 1 tab DAILY DANA Administration Nystatin/Triamcinolone Acetonide 1 applic 07/14/16 22:00 07/27/16 11:31 Mycolog Ii Cream - TP 1 applic BID DANA Administration Ondansetron HCl 4 mg 07/15/16 18:24 07/15/16 19:09 Zofran Injection IVPB 4 mg Q4H PRN Administration NAUSEA AND/OR VOMITING Family Disease History - Family Disease History Family History: Unable to Obtain Physical Exam Vital Signs: Last Vital Signs Temp Pulse Resp BP Pulse Ox 98.5 F 90 22 119/66 95 07/27/16 19:00 07/27/16 19:00 07/27/16 19:00 07/27/16 19:00 07/27/16 09:00 Constitutional: Yes: Calm Eyes: Yes: Conjunctiva Clear HENT: Yes: Atraumatic Neck: Yes: Supple Cardiovascular: Yes: S1, S2 Respiratory: Yes: CTA Bilaterally Gastrointestinal: soft, nontender, bs+ Abnormal Lab Results 07/27/16 07/27/16 07/27/16 08:35 08:35 08:35 RBC 2.69 L Hgb 7.4 L Hct 23.2 L MCHC 31.9 L RDW 17.1 H INR 1.85 H Chloride 109 H BUN 29 H D Calcium 7.8 L ALT 7 L Alkaline Phosphatase 44 L Total Protein 5.8 L Albumin 2.0 L Antibody Screen Direct Antiglob Test Crossmatch 07/27/16 11:57 RBC Hgb Hct MCHC RDW INR Chloride BUN Calcium ALT Alkaline Phosphatase Total Protein Albumin Antibody Screen Positive H Direct Antiglob 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 See Detail a/p c 80 y/o female with htn, severe dementia, now with pelic abscess , s/p drainage anemia --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
[2016-07-27] MEDS: AMINO ACIDS 4.25%/D5W 1,000 ML IV SCH (17:59)
[2016-07-27 19:24] LABS: BASOPHIL 1.3 % (0-2.0); EOSINOPHIL 3.8 % (0-4.5); MCH 27.5 pg (25.7-33.7); MCHC 31.9 g/dl (32.0-36.0); MEAN PLT VOLUME 8.4 fl (7.5-11.1); NEUTROPHILS 72.4 % (42.8-82.8); PLATELET COUNT 350 K/MM3 (134-434); RDW 17.1 % (11.6-15.6); WHITE BLOOD COUNT 9.4 K/mm3 (4.0-10.0)
[2016-07-27 19:35] LABS: INR 1.85 (0.82-1.09); PROTHROMBIN TIME (PATIENT) 20.6 SEC (9.98-11.88)
[2016-07-27 19:37] LABS: ACTIVATED PTT 27.9 SECONDS (26.9-34.4)
[2016-07-27 20:12] LABS: ANION GAP 10 (8-16); CALCIUM 7.8 mg/dL (8.5-10.1); CO2 22 mmol/L (21-32); CREATININE 0.6 mg/dL (0.55-1.02); GLUCOSE,RANDOM 102 mg/dL (74-106); SGOT/AST 15 U/L (15-37); SGPT/ALT 7 U/L (12-78)
[2016-07-27 20:14] LABS: ALK PHOS 44 U/L (45-117); BILIRUBIN,TOTAL 0.2 mg/dL (0.2-1.0); TOT PROT 5.8 g/dl (6.4-8.2)
[2016-07-28] MEDS: MIRTAZAPINE 15 MG TABLET (FP) PO SCH ×2 (00:22→22:24)
[2016-07-28] MEDS: MAGNESIUM OXIDE 400 MG TABLET (FP) PO SCH ×3 (00:22→22:24)
[2016-07-28] MEDS: METOPROLOL TARTRATE 25 MG TABLET (FP) PO SCH ×3 (00:22→22:24)
[2016-07-28] MEDS: clonazePAM 0.5 MG TABLET PO SCH ×4 (00:22→22:24)
[2016-07-28] MEDS: APIXABAN 2.5 MG TABLET PO SCH ×3 (00:22→22:24)
[2016-07-28] MEDS: NYSTATIN/TRIAMCINOLONE TOPICAL CREAM 15 GM TUBE TP SCH ×3 (00:23→22:25)
[2016-07-28] MEDS ORDERED: FUROSEMIDE 40 MG/4 ML INJECTABLE VIAL IVPUSH ONE (01:00)
[2016-07-28] MEDS: CEFEPIME 1 GM/100 ML BAG PRE-DOCKED IVPB SCH ×3 (01:57→17:44)
[2016-07-28] MEDS: METRONIDAZOLE 500 MG PREMIXED 100 ML IVPB SCH ×3 (01:57→17:44)
[2016-07-28] MEDS: FAT EMULSIONS 20% 250 ML PREMIX INFUS.BAG IV SCH ×2 (07:11→22:24)
[2016-07-28 09:23] LABS: MCH 27.6 pg (25.7-33.7); MCHC 33.4 g/dl (32.0-36.0); MEAN CELL VOLUME 82.7 fl (80-96); MEAN PLT VOLUME 7.9 fl (7.5-11.1); PLATELET COUNT 340 K/MM3 (134-434); RDW 16.6 % (11.6-15.6); WHITE BLOOD COUNT 9.2 K/mm3 (4.0-10.0)
[2016-07-28 09:46] LABS: CALCIUM 8.2 mg/dL (8.5-10.1); CREATININE 0.6 mg/dL (0.55-1.02); MAGNESIUM 2.3 mg/dL (1.8-2.4)
[2016-07-28] MEDS ORDERED: PT OWN MED DRAWER 7, Y5N ONE (09:50)
[2016-07-28] MEDS: ASCORBIC ACID 500 MG TABLET (FP) PO SCH (09:56)
[2016-07-28] MEDS: CITALOPRAM HYDROBROMIDE 10 MG TABLET (FP) PO SCH (09:56)
[2016-07-28] MEDS: ASPIRIN 81 MG CHEWABLE TABLETS PO SCH (09:56)
[2016-07-28] MEDS: DIGOXIN 0.125 MG TABLET (FP) PO SCH (09:56)
[2016-07-28] MEDS: LACTOBACILLUS ACIDOPHILUS 1 EACH TAB (FP) PO SCH (09:56)
[2016-07-28] MEDS: FERROUS SO4 325 MG TABLET (FP) PO SCH (09:56)
[2016-07-28] MEDS: MULTIVITAMINS (DAILY MVI) TABLET (FP) PO SCH (09:56)
[2016-07-28] MEDS: FOLIC ACID 1 MG TABLET (FP) PO SCH (09:56)
--- NOTE | 2016-07-28 12:07 | PN ---
Progress Note (short form) - Note Progress Note: No acute events overnight. Afebrile. NAD. Intake & Output 07/25/16 07/26/16 07/27/16 07/28/16 23:59 23:59 23:59 23:59 Intake Total 1604 2214 1958 500 Output Total 0 5 Balance 1604 2214 1952 500 Last Vital Signs Temp Pulse Resp BP Pulse Ox 97.4 F L 80 20 119/69 94 L 07/28/16 06:00 07/28/16 09:56 07/28/16 06:00 07/28/16 06:00 07/27/16 21:00 Active Medications Acetaminophen (Tylenol -) 650 mg PO Q6H PRN PRN Reason: FEVER OR PAIN Apixaban (Eliquis -) 2.5 mg PO BID [facility] Last Admin: 07/28/16 09:57 Dose: 2.5 mg Ascorbic Acid (Vitamin C -) 500 mg PO DAILY [facility] Last Admin: 07/28/16 09:56 Dose: 500 mg Aspirin (Asa -) 81 mg PO DAILY [facility] Last Admin: 07/28/16 09:56 Dose: 81 mg Cefepime HCl (Maxipime 1gm Ivpb Pre-Docked) 1 gm IVPB Q8H-IV DANA PRN Reason: Protocol Last Admin: 07/28/16 09:55 Dose: 1 gm Citalopram Hydrobromide (Celexa -) 10 mg PO DAILY [facility] Last Admin: 07/28/16 09:56 Dose: 10 mg Clonazepam (Klonopin -) 0.5 mg PO TID [facility] Last Admin: 07/28/16 06:08 Dose: 0.5 mg Clonidine HCl (Catapres Tts Patch -) 0.1 mg TD Q7D@1000 [facility] Digoxin (Lanoxin -) 0.125 mg PO Q2D [facility] Last Admin: 07/28/16 09:56 Dose: 0.125 mg Fat Emulsion Intravenous (Intralipid -) 250 ml IV DAILY@2200 [facility] Last Admin: 07/28/16 07:11 Dose: Not Given Ferrous Sulfate (Feosol -) 325 mg PO DAILY@0800 [facility] Last Admin: 07/28/16 09:56 Dose: 325 mg Folic Acid (Folic Acid -) 1 mg PO DAILY [facility] Last Admin: 07/28/16 09:56 Dose: 1 mg Metronidazole (Flagyl 500mg Premixed Ivpb -) 100 mls @ 100 mls/hr IVPB Q8H-IV [facility] Last Admin: 07/28/16 09:55 Dose: 100 mls/hr Amino Acids (Clinimix -) 1,000 mls @ 42 mls/hr IV Q24H [facility] Last Admin: 07/27/16 17:59 Dose: 42 mls/hr Lactobacillus Acidophilus (Bacid -) 1 tab PO DAILY [facility] Last Admin: 07/28/16 09:56 Dose: 1 tab Magnesium Oxide (Mag-Ox -) 400 mg PO BID [facility] Last Admin: 07/28/16 09:56 Dose: 400 mg Metoprolol Tartrate (Lopressor -) 25 mg PO BID [facility] Last Admin: 07/28/16 09:56 Dose: 25 mg Mirtazapine (Remeron -) 7.5 mg PO HS [facility] Last Admin: 07/28/16 00:22 Dose: 7.5 mg Multivitamins/Minerals/Vitamin C (Tab-A-Vit -) 1 tab PO DAILY [facility] Last Admin: 07/28/16 09:56 Dose: 1 tab Nystatin/Triamcinolone Acetonide (Mycolog Ii Cream -) 1 applic TP BID [facility] Last Admin: 07/28/16 09:57 Dose: 1 applic Ondansetron HCl (Zofran Injection) 4 mg IVPB Q4H PRN PRN Reason: NAUSEA AND/OR VOMITING Last Admin: 07/15/16 19:09 Dose: 4 mg Gen: NAD Heart: RRR Lung: decreased breath sounds at the bases Abd: soft, nontender Ext: no edema Laboratory Results - last 24 hr 07/27/16 07/27/16 07/27/16 08:35 08:35 08:35 WBC 9.4 D RBC 2.69 L Hgb 7.4 L Hct 23.2 L MCV 86.0 MCHC 31.9 L RDW 17.1 H Plt Count 350 MPV 8.4 Neutrophils % 72.4 Lymphocytes % 17.6 D Monocytes % 4.9 Eosinophils % 3.8 D Basophils % 1.3 Retic Count INR 1.85 H PTT (Actin FS) 27.9 Sodium 141 Potassium 3.9 Chloride 109 H Carbon Dioxide 22 Anion Gap 10 BUN 29 H D Creatinine 0.6 Creat Clearance w eGFR > 60 Random Glucose 102 Calcium 7.8 L Magnesium Ferritin Total Bilirubin 0.2 AST 15 D ALT 7 L Alkaline Phosphatase 44 L LD Total Total Protein 5.8 L Albumin 2.0 L Blood Type Antibody Screen Antibody Identification Direct Antiglob Test Crossmatch 07/27/16 07/28/16 07/28/16 11:57 08:55 08:55 WBC 9.2 RBC 4.07 D Hgb 11.2 D Hct 33.7 D MCV 82.7 MCHC 33.4 RDW 16.6 H Plt Count 340 MPV 7.9 Neutrophils % Lymphocytes % Monocytes % Eosinophils % Basophils % Retic Count INR PTT (Actin FS) Sodium 142 Potassium 3.6 Chloride 107 Carbon Dioxide 25 Anion Gap 10 BUN 26 H Creatinine 0.6 Creat Clearance w eGFR Random Glucose 87 Calcium 8.2 L Magnesium 2.3 D Ferritin Total Bilirubin AST ALT Alkaline Phosphatase LD Total 204 Total Protein Albumin Blood Type A NEGATIVE Antibody Screen Positive H Antibody Identification Anti-E Direct Antiglob 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 See Detail 07/28/16 07/28/16 07/28/16 08:55 08:55 08:55 WBC RBC Hgb Hct MCV MCHC RDW Plt Count MPV Neutrophils % Lymphocytes % Monocytes % Eosinophils % Basophils % Retic Count 1.70 H INR PTT (Actin FS) Sodium Potassium Chloride Carbon Dioxide Anion Gap BUN Creatinine Creat Clearance w eGFR Random Glucose Calcium Magnesium Ferritin 4756.856 H Total Bilirubin AST ALT Alkaline Phosphatase LD Total Total Protein Albumin Blood Type Antibody Screen Antibody Identification Direct Antiglob 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 A/P Pelvic Abscess h/o Uterine Rupture Pleural Effusions Atelectasis - antibiotics per ID - aspiration precautions - incentive spirometry - DVT prophylaxis - Comfort/supportive care Dr Ybarra
[2016-07-28] MEDS: AMINO ACIDS 4.25%/D5W 1,000 ML IV SCH (15:23)
--- NOTE | 2016-07-28 19:33 | PN ---
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 awaiting bed at [facility] iv abx iv clinimx pain control klonopin continued will continue to monitor until bed available Problem List - Problems (1) Fever Code(s): R50.9 - FEVER, UNSPECIFIED (2) Severe sepsis Code(s): A41.9 - SEPSIS, UNSPECIFIED ORGANISM R65.20 - SEVERE SEPSIS WITHOUT SEPTIC SHOCK (3) Afib Code(s): I48.91 - UNSPECIFIED ATRIAL FIBRILLATION (4) Anemia Code(s): D64.9 - ANEMIA, UNSPECIFIED Qualifiers: Other causes of anemia: chronic disease, other (5) Anxiety Code(s): F41.9 - ANXIETY DISORDER, UNSPECIFIED (6) Uterine abscess Code(s): N71.9 - INFLAMMATORY DISEASE OF UTERUS, UNSPECIFIED (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
--- NOTE | 2016-07-28 23:29 | PN ---
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 See Detail 07/28/16 07/28/16 07/28/16 08:55 08:55 08:55 RDW Retic Count 1.70 H BUN Calcium Ferritin 4756.856 H Antibody Screen Direct Antiglob 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 Active Medications Generic Name Dose Route Start Last Admin Trade Name Freq PRN Reason Stop Dose Admin Acetaminophen 650 mg 07/14/16 21:27 Tylenol - PO Q6H PRN FEVER OR PAIN Apixaban 2.5 mg 07/14/16 22:00 07/28/16 22:24 Eliquis - PO 2.5 mg BID DANA Administration Ascorbic Acid 500 mg 07/15/16 10:00 07/28/16 09:56 Vitamin C - PO 500 mg DAILY DANA Administration Aspirin 81 mg 07/15/16 10:00 07/28/16 09:56 Asa - PO 81 mg DAILY DANA Administration Cefepime HCl 1 gm 07/15/16 12:00 07/28/16 17:44 Maxipime 1gm Ivpb Pre-Docked IVPB 1 gm Q8H-IV DANA Administration Protocol Citalopram Hydrobromide 10 mg 07/15/16 10:00 07/28/16 09:56 Celexa - PO 10 mg DAILY DANA Administration Clonazepam 0.5 mg 07/14/16 22:00 07/28/16 22:24 Klonopin - PO 0.5 mg TID DANA Administration Clonidine HCl 0.1 mg 07/21/16 10:00 Catapres Tts Patch - TD Q7D@1000 DANA Digoxin 0.125 mg 07/16/16 10:00 07/28/16 09:56 Lanoxin - PO 0.125 mg Q2D DANA Administration Fat Emulsion Intravenous 250 ml 07/15/16 22:00 07/28/16 22:24 Intralipid - IV 250 ml DAILY@2200 DANA Administration Ferrous Sulfate 325 mg 07/15/16 08:00 07/28/16 09:56 Feosol - PO 325 mg DAILY@0800 DANA Administration Folic Acid 1 mg 07/15/16 10:00 07/28/16 09:56 Folic Acid - PO 1 mg DAILY DANA Administration Metronidazole 100 mls @ 100 mls/hr 07/15/16 18:00 07/28/16 17:44 Flagyl 500mg Premixed Ivpb - IVPB 100 mls/hr Q8H-IV DANA Administration Amino Acids 1,000 mls @ 42 mls/hr 07/15/16 15:15 07/28/16 15:23 Clinimix - IV 42 mls/hr Q24H DANA Administration Lactobacillus Acidophilus 1 tab 07/15/16 10:00 07/28/16 09:56 Bacid - PO 1 tab DAILY DANA Administration Magnesium Oxide 400 mg 07/14/16 22:00 07/28/16 22:24 Mag-Ox - PO 400 mg BID DANA Administration Metoprolol Tartrate 25 mg 07/14/16 22:00 07/28/16 22:24 Lopressor - PO 25 mg BID DANA Administration Mirtazapine 7.5 mg 07/14/16 22:00 07/28/16 22:24 Remeron - PO 7.5 mg HS DANA Administration Multivitamins/Minerals/Vitamin C 1 tab 07/15/16 10:00 07/28/16 09:56 Tab-A-Vit - PO 1 tab DAILY DANA Administration Nystatin/Triamcinolone Acetonide 1 applic 07/14/16 22:00 07/28/16 22:25 Mycolog Ii Cream - TP 1 applic BID DANA Administration Ondansetron HCl 4 mg 07/15/16 18:24 07/15/16 19:09 Zofran Injection IVPB 4 mg Q4H PRN Administration NAUSEA AND/OR VOMITING a/p 80 y/o female with htn, severe dementia, now with pelvic abscess , s/p drainage anemia --chronic disease due to ongoing infection +/- blood loss active hemolysis ruled out given nl LDH.retic count s/o marrow suppression rafi +/anti E+ transfused PRBC for hgb 7.4 hgb 11.8 f/u b12/folate/iron studies
[2016-07-29] MEDS: METRONIDAZOLE 500 MG PREMIXED 100 ML IVPB SCH ×3 (02:05→17:08)
[2016-07-29] MEDS: CEFEPIME 1 GM/100 ML BAG PRE-DOCKED IVPB SCH ×3 (02:45→17:08)
[2016-07-29] MEDS: clonazePAM 0.5 MG TABLET PO SCH ×3 (05:40→22:10)
[2016-07-29 06:06] LABS: HEMATOCRIT 34.2 % (34.0-46.6); SERUM IRON 39 ug/dL (27-139); TOTAL IRON BINDING CAPACITY 117 ug/dL (250-450); UIBC 78 ug/dL (118-369)
[2016-07-29] MEDS: FERROUS SO4 325 MG TABLET (FP) PO SCH (08:05)
[2016-07-29 08:17] LABS: HAPTOGLOBIN 453 mg/dL (34-200)
[2016-07-29] MEDS: CITALOPRAM HYDROBROMIDE 10 MG TABLET (FP) PO SCH (09:18)
[2016-07-29] MEDS: ASCORBIC ACID 500 MG TABLET (FP) PO SCH (09:18)
[2016-07-29] MEDS: METOPROLOL TARTRATE 25 MG TABLET (FP) PO SCH ×2 (09:18→22:10)
[2016-07-29] MEDS: FOLIC ACID 1 MG TABLET (FP) PO SCH (09:18)
[2016-07-29] MEDS: MAGNESIUM OXIDE 400 MG TABLET (FP) PO SCH ×2 (09:18→22:10)
[2016-07-29] MEDS: LACTOBACILLUS ACIDOPHILUS 1 EACH TAB (FP) PO SCH (09:18)
[2016-07-29] MEDS: MULTIVITAMINS (DAILY MVI) TABLET (FP) PO SCH (09:18)
[2016-07-29] MEDS: APIXABAN 2.5 MG TABLET PO SCH ×2 (09:18→22:09)
[2016-07-29] MEDS: ASPIRIN 81 MG CHEWABLE TABLETS PO SCH (09:18)
[2016-07-29] MEDS: NYSTATIN/TRIAMCINOLONE TOPICAL CREAM 15 GM TUBE TP SCH ×2 (09:19→22:12)
[2016-07-29] MEDS: AMINO ACIDS 4.25%/D5W 1,000 ML IV SCH ×2 (13:54→15:05)
--- NOTE | 2016-07-29 18:06 | PN ---
Progress Note, Physician Chief Complaint: ASLEEP, STILL NOT EATING PO - Current Medication List Current Medications: Active Medications Acetaminophen (Tylenol -) 650 mg PO Q6H PRN PRN Reason: FEVER OR PAIN Apixaban (Eliquis -) 2.5 mg PO BID [facility] Last Admin: 07/29/16 09:18 Dose: 2.5 mg Ascorbic Acid (Vitamin C -) 500 mg PO DAILY [facility] Last Admin: 07/29/16 09:18 Dose: 500 mg Aspirin (Asa -) 81 mg PO DAILY [facility] Last Admin: 07/29/16 09:18 Dose: 81 mg Cefepime HCl (Maxipime 1gm Ivpb Pre-Docked) 1 gm IVPB Q8H-IV [facility] PRN Reason: Protocol Last Admin: 07/29/16 17:08 Dose: 1 gm Citalopram Hydrobromide (Celexa -) 10 mg PO DAILY [facility] Last Admin: 07/29/16 09:18 Dose: 10 mg Clonazepam (Klonopin -) 0.5 mg PO TID [facility] Last Admin: 07/29/16 13:54 Dose: 0.5 mg Clonidine HCl (Catapres Tts Patch -) 0.1 mg TD Q7D@1000 [facility] Digoxin (Lanoxin -) 0.125 mg PO Q2D [facility] Last Admin: 07/28/16 09:56 Dose: 0.125 mg Fat Emulsion Intravenous (Intralipid -) 250 ml IV DAILY@2200 [facility] Last Admin: 07/28/16 22:24 Dose: 250 ml Ferrous Sulfate (Feosol -) 325 mg PO DAILY@0800 [facility] Last Admin: 07/29/16 08:05 Dose: 325 mg Folic Acid (Folic Acid -) 1 mg PO DAILY [facility] Last Admin: 07/29/16 09:18 Dose: 1 mg Metronidazole (Flagyl 500mg Premixed Ivpb -) 100 mls @ 100 mls/hr IVPB Q8H-IV [facility] Last Admin: 07/29/16 17:08 Dose: 100 mls/hr Amino Acids (Clinimix -) 1,000 mls @ 42 mls/hr IV Q24H [facility] Last Admin: 07/29/16 15:05 Dose: Not Given Lactobacillus Acidophilus (Bacid -) 1 tab PO DAILY [facility] Last Admin: 07/29/16 09:18 Dose: 1 tab Magnesium Oxide (Mag-Ox -) 400 mg PO BID [facility] Last Admin: 07/29/16 09:18 Dose: 400 mg Metoprolol Tartrate (Lopressor -) 25 mg PO BID [facility] Last Admin: 07/29/16 09:18 Dose: 25 mg Mirtazapine (Remeron -) 7.5 mg PO HS [facility] Last Admin: 07/28/16 22:24 Dose: 7.5 mg Multivitamins/Minerals/Vitamin C (Tab-A-Vit -) 1 tab PO DAILY [facility] Last Admin: 07/29/16 09:18 Dose: 1 tab Nystatin/Triamcinolone Acetonide (Mycolog Ii Cream -) 1 applic TP BID [facility] Last Admin: 07/29/16 09:19 Dose: 1 applic Ondansetron HCl (Zofran Injection) 4 mg IVPB Q4H PRN PRN Reason: NAUSEA AND/OR VOMITING Last Admin: 07/15/16 19:09 Dose: 4 mg - Objective Vital Signs: Vital Signs Temperature 98.1 F 07/29/16 16:43 Pulse Rate 91 H 07/29/16 16:43 Respiratory Rate 22 07/29/16 16:43 Blood Pressure 156/77 07/29/16 16:43 O2 Sat by Pulse Oximetry (%) 97 07/29/16 09:00 Constitutional: Yes: Mild Distress Eyes: Yes: WNL HENT: Yes: WNL Neck: Yes: WNL Cardiovascular: Yes: Pulse Irregular Respiratory: Yes: Other Gastrointestinal: Yes: WNL Genitourinary: Yes: Incontinence Extremities: Yes: Other Edema: No Peripheral Pulses WNL: Yes Integumentary: Yes: Pressure Ulcer, Rash Neurological: Yes: Pre-Existing Deficit, Unsteady Gait, Weakness ...Motor Strength: LLE, RLE Psychiatric: Yes: Agitated Labs: CBC, BMP 07/28/16 08:55 07/28/16 08:55 INR, PTT INR 1.85 (0.82-1.09) H 07/27/16 08:35 Problem List - Problems (1) Fever Code(s): R50.9 - FEVER, UNSPECIFIED (2) Severe sepsis Code(s): A41.9 - SEPSIS, UNSPECIFIED ORGANISM R65.20 - SEVERE SEPSIS WITHOUT SEPTIC SHOCK (3) Afib Code(s): I48.91 - UNSPECIFIED ATRIAL FIBRILLATION (4) Anemia Code(s): D64.9 - ANEMIA, UNSPECIFIED Qualifiers: Other causes of anemia: chronic disease, other (5) Anxiety Code(s): F41.9 - ANXIETY DISORDER, UNSPECIFIED (6) Uterine abscess Code(s): N71.9 - INFLAMMATORY DISEASE OF UTERUS, UNSPECIFIED (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 Assessment/Plan PICC LINE INSERTED IV ABX/CLINIMIX PRBC TRANSFUSION WITH LASIX IV CALVARY FORM COMPLETED POOR PROGNOSIS POOR APPETITE
[2016-07-29] MEDS ORDERED: PT OWN MED DRAWER 7, Y5N ONE (20:14)
[2016-07-29] MEDS: FAT EMULSIONS 20% 250 ML PREMIX INFUS.BAG IV SCH (22:08)
[2016-07-29] MEDS: MIRTAZAPINE 15 MG TABLET (FP) PO SCH (22:10)
[2016-07-30] MEDS: CEFEPIME 1 GM/100 ML BAG PRE-DOCKED IVPB SCH ×3 (01:06→17:07)
[2016-07-30] MEDS: METRONIDAZOLE 500 MG PREMIXED 100 ML IVPB SCH ×3 (01:07→17:07)
[2016-07-30] MEDS: clonazePAM 0.5 MG TABLET PO SCH ×3 (06:49→21:57)
--- NOTE | 2016-07-30 09:48 | PN ---
Progress Note, Physician Chief Complaint: NOT IN A BAD MOOD - Current Medication List Current Medications: Active Medications Acetaminophen (Tylenol -) 650 mg PO Q6H PRN PRN Reason: FEVER OR PAIN Apixaban (Eliquis -) 2.5 mg PO BID [facility] Last Admin: 07/29/16 22:09 Dose: 2.5 mg Ascorbic Acid (Vitamin C -) 500 mg PO DAILY [facility] Last Admin: 07/29/16 09:18 Dose: 500 mg Aspirin (Asa -) 81 mg PO DAILY [facility] Last Admin: 07/29/16 09:18 Dose: 81 mg Cefepime HCl (Maxipime 1gm Ivpb Pre-Docked) 1 gm IVPB Q8H-IV [facility] PRN Reason: Protocol Last Admin: 07/30/16 01:06 Dose: 1 gm Citalopram Hydrobromide (Celexa -) 10 mg PO DAILY [facility] Last Admin: 07/29/16 09:18 Dose: 10 mg Clonazepam (Klonopin -) 0.5 mg PO TID [facility] Last Admin: 07/30/16 06:49 Dose: 0.5 mg Clonidine HCl (Catapres Tts Patch -) 0.1 mg TD Q7D@1000 [facility] Digoxin (Lanoxin -) 0.125 mg PO Q2D [facility] Last Admin: 07/28/16 09:56 Dose: 0.125 mg Fat Emulsion Intravenous (Intralipid -) 250 ml IV DAILY@2200 [facility] Last Admin: 07/29/16 22:08 Dose: 250 ml Ferrous Sulfate (Feosol -) 325 mg PO DAILY@0800 [facility] Last Admin: 07/29/16 08:05 Dose: 325 mg Folic Acid (Folic Acid -) 1 mg PO DAILY [facility] Last Admin: 07/29/16 09:18 Dose: 1 mg Metronidazole (Flagyl 500mg Premixed Ivpb -) 100 mls @ 100 mls/hr IVPB Q8H-IV [facility] Last Admin: 07/30/16 01:07 Dose: 100 mls/hr Amino Acids (Clinimix -) 1,000 mls @ 42 mls/hr IV Q24H [facility] Last Admin: 07/29/16 15:05 Dose: Not Given Lactobacillus Acidophilus (Bacid -) 1 tab PO DAILY [facility] Last Admin: 07/29/16 09:18 Dose: 1 tab Magnesium Oxide (Mag-Ox -) 400 mg PO BID [facility] Last Admin: 07/29/16 22:10 Dose: 400 mg Metoprolol Tartrate (Lopressor -) 25 mg PO BID [facility] Last Admin: 07/29/16 22:10 Dose: 25 mg Mirtazapine (Remeron -) 7.5 mg PO HS [facility] Last Admin: 07/29/16 22:10 Dose: 7.5 mg Multivitamins/Minerals/Vitamin C (Tab-A-Vit -) 1 tab PO DAILY [facility] Last Admin: 07/29/16 09:18 Dose: 1 tab Nystatin/Triamcinolone Acetonide (Mycolog Ii Cream -) 1 applic TP BID [facility] Last Admin: 07/29/16 22:12 Dose: 1 applic Ondansetron HCl (Zofran Injection) 4 mg IVPB Q4H PRN PRN Reason: NAUSEA AND/OR VOMITING Last Admin: 07/15/16 19:09 Dose: 4 mg - Objective Vital Signs: Vital Signs Temperature 98.2 F 07/30/16 07:49 Pulse Rate 91 H 07/30/16 07:49 Respiratory Rate 20 07/30/16 07:49 Blood Pressure 137/68 07/30/16 07:49 O2 Sat by Pulse Oximetry (%) 97 07/29/16 21:00 Constitutional: Yes: Calm Cardiovascular: Yes: WNL Respiratory: Yes: WNL Gastrointestinal: Yes: WNL Edema: No Labs: CBC, BMP 07/28/16 08:55 07/28/16 08:55 INR, PTT INR 1.85 (0.82-1.09) H 07/27/16 08:35 Problem List - Problems (1) CHF (congestive heart failure) Code(s): I50.9 - HEART FAILURE, UNSPECIFIED (2) Fever Code(s): R50.9 - FEVER, UNSPECIFIED (3) Afib Code(s): I48.91 - UNSPECIFIED ATRIAL FIBRILLATION (4) HTN (hypertension) Code(s): I10 - ESSENTIAL (PRIMARY) HYPERTENSION Qualifiers: Hypertension type: essential hypertension Qualified Code(s): I10 - Essential (primary) hypertension (5) Intra-abdominal abscess Code(s): K65.1 - PERITONEAL ABSCESS Assessment/Plan (1) Fever Code(s): R50.9 - FEVER, UNSPECIFIED (2) Severe sepsis Code(s): A41.9 - SEPSIS, UNSPECIFIED ORGANISM R65.20 - SEVERE SEPSIS WITHOUT SEPTIC SHOCK (3) Afib Code(s): I48.91 - UNSPECIFIED ATRIAL FIBRILLATION (4) Anemia Code(s): D64.9 - ANEMIA, UNSPECIFIED Qualifiers: Other causes of anemia: chronic disease, other (5) Anxiety Code(s): F41.9 - ANXIETY DISORDER, UNSPECIFIED (6) Uterine abscess Code(s): N71.9 - INFLAMMATORY DISEASE OF UTERUS, UNSPECIFIED (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 Assessment/Plan [facility] FORM COMPLETED POOR PROGNOSIS POOR APPETITE DISCHARGE TO [facility]
[2016-07-30] MEDS: FOLIC ACID 1 MG TABLET (FP) PO SCH (10:05)
[2016-07-30] MEDS: MULTIVITAMINS (DAILY MVI) TABLET (FP) PO SCH (10:05)
[2016-07-30] MEDS: FERROUS SO4 325 MG TABLET (FP) PO SCH (10:05)
[2016-07-30] MEDS: LACTOBACILLUS ACIDOPHILUS 1 EACH TAB (FP) PO SCH (10:05)
[2016-07-30] MEDS: MAGNESIUM OXIDE 400 MG TABLET (FP) PO SCH ×2 (10:05→21:57)
[2016-07-30] MEDS: APIXABAN 2.5 MG TABLET PO SCH ×2 (10:05→21:59)
[2016-07-30] MEDS: CITALOPRAM HYDROBROMIDE 10 MG TABLET (FP) PO SCH (10:05)
[2016-07-30] MEDS: METOPROLOL TARTRATE 25 MG TABLET (FP) PO SCH ×2 (10:05→21:57)
[2016-07-30] MEDS: ASPIRIN 81 MG CHEWABLE TABLETS PO SCH (10:05)
[2016-07-30] MEDS: ASCORBIC ACID 500 MG TABLET (FP) PO SCH (10:07)
[2016-07-30] MEDS: NYSTATIN/TRIAMCINOLONE TOPICAL CREAM 15 GM TUBE TP SCH ×2 (14:27→22:05)
[2016-07-30] MEDS: DIGOXIN 0.125 MG TABLET (FP) PO SCH (14:27)
[2016-07-30] MEDS: AMINO ACIDS 4.25%/D5W 1,000 ML IV SCH (16:54)
[2016-07-30] MEDS ORDERED: PT OWN MED DRAWER 7, Y5N ONE (21:43)
[2016-07-30] MEDS: MIRTAZAPINE 15 MG TABLET (FP) PO SCH (21:57)
[2016-07-30] MEDS: FAT EMULSIONS 20% 250 ML PREMIX INFUS.BAG IV SCH (21:58)
[2016-07-31] MEDS: METRONIDAZOLE 500 MG PREMIXED 100 ML IVPB SCH ×3 (01:00→17:01)
[2016-07-31] MEDS: CEFEPIME 1 GM/100 ML BAG PRE-DOCKED IVPB SCH ×3 (01:18→18:02)
[2016-07-31] MEDS: clonazePAM 0.5 MG TABLET PO SCH ×3 (05:12→21:07)
[2016-07-31 08:18] LABS: BASOPHIL 0.8 % (0-2.0); EOSINOPHIL 5.7 % (0-4.5); MCHC 33.1 g/dl (32.0-36.0); MEAN CELL VOLUME 84.7 fl (80-96); NEUTROPHILS 70.2 % (42.8-82.8); PLATELET COUNT 313 K/MM3 (134-434); RDW 17.1 % (11.6-15.6); WHITE BLOOD COUNT 9.9 K/mm3 (4.0-10.0)
[2016-07-31 08:39] LABS: ANION GAP 9 (8-16); CALCIUM 7.9 mg/dL (8.5-10.1); CO2 24 mmol/L (21-32); GLUCOSE,RANDOM 94 mg/dL (74-106)
[2016-07-31 08:43] LABS: ALK PHOS 44 U/L (45-117); BILIRUBIN,TOTAL 0.2 mg/dL (0.2-1.0); CREATININE 0.5 mg/dL (0.55-1.02); SGOT/AST 18 U/L (15-37); SGPT/ALT 9 U/L (12-78); TOT PROT 5.6 g/dl (6.4-8.2)
[2016-07-31] MEDS: FERROUS SO4 325 MG TABLET (FP) PO SCH (08:59)
[2016-07-31] MEDS: LACTOBACILLUS ACIDOPHILUS 1 EACH TAB (FP) PO SCH (08:59)
[2016-07-31] MEDS: CITALOPRAM HYDROBROMIDE 10 MG TABLET (FP) PO SCH (08:59)
[2016-07-31] MEDS: ASCORBIC ACID 500 MG TABLET (FP) PO SCH (08:59)
[2016-07-31] MEDS: APIXABAN 2.5 MG TABLET PO SCH ×2 (08:59→21:07)
[2016-07-31] MEDS: FOLIC ACID 1 MG TABLET (FP) PO SCH (09:00)
[2016-07-31] MEDS: MULTIVITAMINS (DAILY MVI) TABLET (FP) PO SCH (09:00)
[2016-07-31] MEDS: MAGNESIUM OXIDE 400 MG TABLET (FP) PO SCH ×2 (09:00→21:07)
[2016-07-31] MEDS: METOPROLOL TARTRATE 25 MG TABLET (FP) PO SCH ×2 (09:00→21:07)
[2016-07-31] MEDS: ASPIRIN 81 MG CHEWABLE TABLETS PO SCH (09:00)
[2016-07-31] MEDS: NYSTATIN/TRIAMCINOLONE TOPICAL CREAM 15 GM TUBE TP SCH ×2 (09:01→21:09)
--- NOTE | 2016-07-31 09:12 | PN ---
Progress Note, Physician - Current Medication List Current Medications: Active Medications Acetaminophen (Tylenol -) 650 mg PO Q6H PRN PRN Reason: FEVER OR PAIN Apixaban (Eliquis -) 2.5 mg PO BID [facility] Last Admin: 07/31/16 08:59 Dose: 2.5 mg Ascorbic Acid (Vitamin C -) 500 mg PO DAILY [facility] Last Admin: 07/31/16 08:59 Dose: 500 mg Aspirin (Asa -) 81 mg PO DAILY [facility] Last Admin: 07/31/16 09:00 Dose: 81 mg Cefepime HCl (Maxipime 1gm Ivpb Pre-Docked) 1 gm IVPB Q8H-IV [facility] PRN Reason: Protocol Last Admin: 07/31/16 09:04 Dose: 1 gm Citalopram Hydrobromide (Celexa -) 10 mg PO DAILY [facility] Last Admin: 07/31/16 08:59 Dose: 10 mg Clonazepam (Klonopin -) 0.5 mg PO TID [facility] Last Admin: 07/31/16 05:12 Dose: 0.5 mg Clonidine HCl (Catapres Tts Patch -) 0.1 mg TD Q7D@1000 [facility] Digoxin (Lanoxin -) 0.125 mg PO Q2D [facility] Last Admin: 07/30/16 14:27 Dose: 0.125 mg Fat Emulsion Intravenous (Intralipid -) 250 ml IV DAILY@2200 [facility] Last Admin: 07/30/16 21:58 Dose: 250 ml Ferrous Sulfate (Feosol -) 325 mg PO DAILY@0800 [facility] Last Admin: 07/31/16 08:59 Dose: 325 mg Folic Acid (Folic Acid -) 1 mg PO DAILY [facility] Last Admin: 07/31/16 09:00 Dose: 1 mg Metronidazole (Flagyl 500mg Premixed Ivpb -) 100 mls @ 100 mls/hr IVPB Q8H-IV [facility] Last Admin: 07/31/16 09:01 Dose: 100 mls/hr Amino Acids (Clinimix -) 1,000 mls @ 42 mls/hr IV Q24H [facility] Last Admin: 07/30/16 16:54 Dose: 42 mls/hr Lactobacillus Acidophilus (Bacid -) 1 tab PO DAILY [facility] Last Admin: 07/31/16 08:59 Dose: 1 tab Magnesium Oxide (Mag-Ox -) 400 mg PO BID [facility] Last Admin: 07/31/16 09:00 Dose: 400 mg Metoprolol Tartrate (Lopressor -) 25 mg PO BID [facility] Last Admin: 07/31/16 09:00 Dose: 25 mg Mirtazapine (Remeron -) 7.5 mg PO HS [facility] Last Admin: 07/30/16 21:57 Dose: 7.5 mg Multivitamins/Minerals/Vitamin C (Tab-A-Vit -) 1 tab PO DAILY [facility] Last Admin: 07/31/16 09:00 Dose: 1 tab Nystatin/Triamcinolone Acetonide (Mycolog Ii Cream -) 1 applic TP BID [facility] Last Admin: 07/31/16 09:01 Dose: 1 applic Ondansetron HCl (Zofran Injection) 4 mg IVPB Q4H PRN PRN Reason: NAUSEA AND/OR VOMITING Last Admin: 07/15/16 19:09 Dose: 4 mg - Objective Vital Signs: Vital Signs Temperature 98.1 F 07/31/16 06:00 Pulse Rate 96 H 07/31/16 06:00 Respiratory Rate 20 07/31/16 06:00 Blood Pressure 146/87 07/31/16 06:00 O2 Sat by Pulse Oximetry (%) 98 07/30/16 21:00 Neck: Yes: WNL Cardiovascular: Yes: WNL Respiratory: Yes: WNL Gastrointestinal: Yes: WNL Edema: No Labs: CBC, BMP 07/31/16 07:00 07/31/16 07:00 INR, PTT INR 1.85 (0.82-1.09) H 07/27/16 08:35 Problem List - Problems (1) CHF (congestive heart failure) Code(s): I50.9 - HEART FAILURE, UNSPECIFIED (2) Fever Code(s): R50.9 - FEVER, UNSPECIFIED (3) Afib Code(s): I48.91 - UNSPECIFIED ATRIAL FIBRILLATION (4) HTN (hypertension) Code(s): I10 - ESSENTIAL (PRIMARY) HYPERTENSION Qualifiers: Hypertension type: essential hypertension Qualified Code(s): I10 - Essential (primary) hypertension (5) Intra-abdominal abscess Code(s): K65.1 - PERITONEAL ABSCESS Assessment/Plan (1) Fever Code(s): R50.9 - FEVER, UNSPECIFIED (2) Severe sepsis Code(s): A41.9 - SEPSIS, UNSPECIFIED ORGANISM R65.20 - SEVERE SEPSIS WITHOUT SEPTIC SHOCK (3) Afib Code(s): I48.91 - UNSPECIFIED ATRIAL FIBRILLATION (4) Anemia Code(s): D64.9 - ANEMIA, UNSPECIFIED Qualifiers: Other causes of anemia: chronic disease, other (5) Anxiety Code(s): F41.9 - ANXIETY DISORDER, UNSPECIFIED (6) Uterine abscess Code(s): N71.9 - INFLAMMATORY DISEASE OF UTERUS, UNSPECIFIED (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 Assessment/Plan [facility] FORM COMPLETED POOR PROGNOSIS POOR APPETITE VRE +catrachita -> ISOLATION DISCHARGE TO [facility]
[2016-07-31] MEDS: AMINO ACIDS 4.25%/D5W 1,000 ML IV SCH (17:28)
[2016-07-31] MEDS ORDERED: PT OWN MED DRAWER 7, Y5N ONE (20:51)
[2016-07-31] MEDS: MIRTAZAPINE 15 MG TABLET (FP) PO SCH (21:07)
[2016-07-31] MEDS: FAT EMULSIONS 20% 250 ML PREMIX INFUS.BAG IV SCH (21:08)
[2016-08-01] MEDS: METRONIDAZOLE 500 MG PREMIXED 100 ML IVPB SCH ×3 (01:27→17:28)
[2016-08-01] MEDS: CEFEPIME 1 GM/100 ML BAG PRE-DOCKED IVPB SCH ×3 (01:27→17:28)
[2016-08-01] MEDS: clonazePAM 0.5 MG TABLET PO SCH ×3 (06:22→22:21)
[2016-08-01 07:07] LABS: BASOPHIL 0.9 % (0-2.0); EOSINOPHIL 4.7 % (0-4.5); MCH 27.7 pg (25.7-33.7); MCHC 32.4 g/dl (32.0-36.0); MEAN CELL VOLUME 85.4 fl (80-96); MEAN PLT VOLUME 8.3 fl (7.5-11.1); NEUTROPHILS 66.9 % (42.8-82.8); PLATELET COUNT 320 K/MM3 (134-434); RDW 16.7 % (11.6-15.6); WHITE BLOOD COUNT 10.5 K/mm3 (4.0-10.0)
[2016-08-01 07:13] LABS: ALBUMIN 2.1 g/dl (3.4-5.0); ANION GAP 9 (8-16); BILIRUBIN,TOTAL 0.2 mg/dL (0.2-1.0); CALCIUM 7.8 mg/dL (8.5-10.1); CO2 25 mmol/L (21-32); CREATININE 0.6 mg/dL (0.55-1.02); GLUCOSE,RANDOM 96 mg/dL (74-106); SGOT/AST 16 U/L (15-37); SGPT/ALT 9 U/L (12-78); TOT PROT 5.9 g/dl (6.4-8.2)
[2016-08-01 07:26] LABS: ALK PHOS 48 U/L (45-117); DIGOXIN LEVEL 0.4565 ng/ml (0.8-2.0)
[2016-08-01] MEDS: FERROUS SO4 325 MG TABLET (FP) PO SCH (08:55)
[2016-08-01] MEDS: MAGNESIUM OXIDE 400 MG TABLET (FP) PO SCH ×2 (09:01→22:21)
[2016-08-01] MEDS: CITALOPRAM HYDROBROMIDE 10 MG TABLET (FP) PO SCH (09:01)
[2016-08-01] MEDS: METOPROLOL TARTRATE 25 MG TABLET (FP) PO SCH ×2 (09:01→22:21)
[2016-08-01] MEDS: ASCORBIC ACID 500 MG TABLET (FP) PO SCH (09:01)
[2016-08-01] MEDS: APIXABAN 2.5 MG TABLET PO SCH ×2 (09:01→22:21)
[2016-08-01] MEDS: ASPIRIN 81 MG CHEWABLE TABLETS PO SCH (09:01)
[2016-08-01] MEDS: LACTOBACILLUS ACIDOPHILUS 1 EACH TAB (FP) PO SCH (09:01)
[2016-08-01] MEDS: DIGOXIN 0.125 MG TABLET (FP) PO SCH (09:01)
[2016-08-01] MEDS: FOLIC ACID 1 MG TABLET (FP) PO SCH (09:01)
[2016-08-01] MEDS: MULTIVITAMINS (DAILY MVI) TABLET (FP) PO SCH (09:01)
[2016-08-01] MEDS: NYSTATIN/TRIAMCINOLONE TOPICAL CREAM 15 GM TUBE TP SCH ×2 (09:07→22:22)
[2016-08-01] MEDS: AMINO ACIDS 4.25%/D5W 1,000 ML IV SCH ×2 (10:36→14:19)
--- NOTE | 2016-08-01 18:18 | PN ---
Progress Note, Physician Chief Complaint: EATING JOKED - Current Medication List Current Medications: Active Medications Acetaminophen (Tylenol -) 650 mg PO Q6H PRN PRN Reason: FEVER OR PAIN Apixaban (Eliquis -) 2.5 mg PO BID [facility] Last Admin: 08/01/16 09:01 Dose: 2.5 mg Ascorbic Acid (Vitamin C -) 500 mg PO DAILY [facility] Last Admin: 08/01/16 09:01 Dose: 500 mg Aspirin (Asa -) 81 mg PO DAILY [facility] Last Admin: 08/01/16 09:01 Dose: 81 mg Cefepime HCl (Maxipime 1gm Ivpb Pre-Docked) 1 gm IVPB Q8H-IV [facility] PRN Reason: Protocol Last Admin: 08/01/16 17:28 Dose: 1 gm Citalopram Hydrobromide (Celexa -) 10 mg PO DAILY [facility] Last Admin: 08/01/16 09:01 Dose: 10 mg Clonazepam (Klonopin -) 0.5 mg PO TID [facility] Last Admin: 08/01/16 14:26 Dose: 0.5 mg Clonidine HCl (Catapres Tts Patch -) 0.1 mg TD Q7D@1000 [facility] Digoxin (Lanoxin -) 0.125 mg PO Q2D [facility] Last Admin: 08/01/16 09:01 Dose: 0.125 mg Fat Emulsion Intravenous (Intralipid -) 250 ml IV DAILY@2200 [facility] Last Admin: 07/31/16 21:08 Dose: 250 ml Ferrous Sulfate (Feosol -) 325 mg PO DAILY@0800 [facility] Last Admin: 08/01/16 08:55 Dose: 325 mg Folic Acid (Folic Acid -) 1 mg PO DAILY [facility] Last Admin: 08/01/16 09:01 Dose: 1 mg Metronidazole (Flagyl 500mg Premixed Ivpb -) 100 mls @ 100 mls/hr IVPB Q8H-IV [facility] Last Admin: 08/01/16 17:28 Dose: 100 mls/hr Amino Acids (Clinimix -) 1,000 mls @ 42 mls/hr IV Q24H [facility] Last Admin: 08/01/16 14:19 Dose: Not Given Lactobacillus Acidophilus (Bacid -) 1 tab PO DAILY [facility] Last Admin: 08/01/16 09:01 Dose: 1 tab Magnesium Oxide (Mag-Ox -) 400 mg PO BID [facility] Last Admin: 08/01/16 09:01 Dose: 400 mg Metoprolol Tartrate (Lopressor -) 25 mg PO BID [facility] Last Admin: 08/01/16 09:01 Dose: 25 mg Mirtazapine (Remeron -) 7.5 mg PO HS [facility] Last Admin: 07/31/16 21:07 Dose: 7.5 mg Multivitamins/Minerals/Vitamin C (Tab-A-Vit -) 1 tab PO DAILY [facility] Last Admin: 08/01/16 09:01 Dose: 1 tab Nystatin/Triamcinolone Acetonide (Mycolog Ii Cream -) 1 applic TP BID [facility] Last Admin: 08/01/16 09:07 Dose: 1 applic Ondansetron HCl (Zofran Injection) 4 mg IVPB Q4H PRN PRN Reason: NAUSEA AND/OR VOMITING Last Admin: 07/15/16 19:09 Dose: 4 mg - Objective Vital Signs: Vital Signs Temperature 98.3 F 08/01/16 17:42 Pulse Rate 94 H 08/01/16 17:42 Respiratory Rate 18 08/01/16 17:42 Blood Pressure 130/62 08/01/16 17:42 O2 Sat by Pulse Oximetry (%) 97 08/01/16 09:00 Constitutional: Yes: Calm Neck: Yes: WNL Cardiovascular: Yes: WNL Respiratory: Yes: WNL Gastrointestinal: Yes: WNL Edema: No Labs: CBC, BMP 08/01/16 05:35 08/01/16 05:35 INR, PTT INR 1.85 (0.82-1.09) H 07/27/16 08:35 Problem List - Problems (1) CHF (congestive heart failure) Code(s): I50.9 - HEART FAILURE, UNSPECIFIED (2) Fever Code(s): R50.9 - FEVER, UNSPECIFIED (3) Afib Code(s): I48.91 - UNSPECIFIED ATRIAL FIBRILLATION (4) HTN (hypertension) Code(s): I10 - ESSENTIAL (PRIMARY) HYPERTENSION Qualifiers: Hypertension type: essential hypertension Qualified Code(s): I10 - Essential (primary) hypertension (5) Intra-abdominal abscess Code(s): K65.1 - PERITONEAL ABSCESS Assessment/Plan (1) Fever Code(s): R50.9 - FEVER, UNSPECIFIED (2) Severe sepsis Code(s): A41.9 - SEPSIS, UNSPECIFIED ORGANISM R65.20 - SEVERE SEPSIS WITHOUT SEPTIC SHOCK (3) Afib Code(s): I48.91 - UNSPECIFIED ATRIAL FIBRILLATION (4) Anemia Code(s): D64.9 - ANEMIA, UNSPECIFIED Qualifiers: Other causes of anemia: chronic disease, other (5) Anxiety Code(s): F41.9 - ANXIETY DISORDER, UNSPECIFIED (6) Uterine abscess Code(s): N71.9 - INFLAMMATORY DISEASE OF UTERUS, UNSPECIFIED (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 Assessment/Plan [facility] FORM COMPLETED POOR PROGNOSIS POOR APPETITE VRE +catrachita -> ISOLATION DISCHARGE TO [facility]
[2016-08-01] MEDS: FAT EMULSIONS 20% 250 ML PREMIX INFUS.BAG IV SCH (22:20)
[2016-08-01] MEDS: MIRTAZAPINE 15 MG TABLET (FP) PO SCH (22:21)
[2016-08-02] MEDS: CEFEPIME 1 GM/100 ML BAG PRE-DOCKED IVPB SCH ×2 (01:30→09:10)
[2016-08-02] MEDS: METRONIDAZOLE 500 MG PREMIXED 100 ML IVPB SCH ×2 (01:30→09:10)
[2016-08-02] MEDS: clonazePAM 0.5 MG TABLET PO SCH ×3 (05:17→22:04)
[2016-08-02 08:43] LABS: EOSINOPHIL 4.5 % (0-4.5); MCH 27.9 pg (25.7-33.7); MCHC 32.4 g/dl (32.0-36.0); MEAN PLT VOLUME 8.5 fl (7.5-11.1); NEUTROPHILS 69.2 % (42.8-82.8); PLATELET COUNT 274 K/MM3 (134-434); RDW 17.3 % (11.6-15.6); WHITE BLOOD COUNT 9.2 K/mm3 (4.0-10.0)
[2016-08-02] MEDS: LACTOBACILLUS ACIDOPHILUS 1 EACH TAB (FP) PO SCH (09:10)
[2016-08-02] MEDS: FOLIC ACID 1 MG TABLET (FP) PO SCH (09:10)
[2016-08-02] MEDS: ASCORBIC ACID 500 MG TABLET (FP) PO SCH (09:10)
[2016-08-02] MEDS: CITALOPRAM HYDROBROMIDE 10 MG TABLET (FP) PO SCH (09:10)
[2016-08-02] MEDS: APIXABAN 2.5 MG TABLET PO SCH ×2 (09:10→22:04)
[2016-08-02] MEDS: METOPROLOL TARTRATE 25 MG TABLET (FP) PO SCH ×2 (09:10→22:04)
[2016-08-02] MEDS: MULTIVITAMINS (DAILY MVI) TABLET (FP) PO SCH (09:10)
[2016-08-02] MEDS: ASPIRIN 81 MG CHEWABLE TABLETS PO SCH (09:10)
[2016-08-02] MEDS: FERROUS SO4 325 MG TABLET (FP) PO SCH (09:10)
[2016-08-02] MEDS: MAGNESIUM OXIDE 400 MG TABLET (FP) PO SCH ×2 (09:10→22:04)
[2016-08-02] MEDS: NYSTATIN/TRIAMCINOLONE TOPICAL CREAM 15 GM TUBE TP SCH ×2 (09:11→22:00)
[2016-08-02] MEDS ORDERED: PT OWN MED DRAWER 7, Y5N ONE ×2 (09:19→21:43)
[2016-08-02] MEDS: AMINO ACIDS 4.25%/D5W 1,000 ML IV SCH ×2 (09:21→14:33)
[2016-08-02 09:37] LABS: ALBUMIN 2.1 g/dl (3.4-5.0); ALK PHOS 45 U/L (45-117); ANION GAP 11 (8-16); BILIRUBIN,TOTAL 0.2 mg/dL (0.2-1.0); CALCIUM 8.2 mg/dL (8.5-10.1); CO2 22 mmol/L (21-32); CREATININE 0.5 mg/dL (0.55-1.02); GLUCOSE,RANDOM 85 mg/dL (74-106); SGOT/AST 18 U/L (15-37); SGPT/ALT 11 U/L (12-78); TOT PROT 5.9 g/dl (6.4-8.2)
--- NOTE | 2016-08-02 17:24 | PN ---
Progress Note (short form) - Note Progress Note: [facility] FORM COMPLETED PATIENT'S APPETITE SLOWLY IMPROVING CLINIMIX IV CONTINUED WOUND CARE INOPERABLE UTERINE TUMOR Problem List - Problems (1) Fever Code(s): R50.9 - FEVER, UNSPECIFIED (2) Severe sepsis Code(s): A41.9 - SEPSIS, UNSPECIFIED ORGANISM R65.20 - SEVERE SEPSIS WITHOUT SEPTIC SHOCK (3) Afib Code(s): I48.91 - UNSPECIFIED ATRIAL FIBRILLATION (4) Anemia Code(s): D64.9 - ANEMIA, UNSPECIFIED Qualifiers: Other causes of anemia: chronic disease, other (5) Anxiety Code(s): F41.9 - ANXIETY DISORDER, UNSPECIFIED (6) Uterine abscess Code(s): N71.9 - INFLAMMATORY DISEASE OF UTERUS, UNSPECIFIED (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
[2016-08-02] MEDS: FAT EMULSIONS 20% 250 ML PREMIX INFUS.BAG IV SCH (21:59)
[2016-08-02] MEDS: MIRTAZAPINE 15 MG TABLET (FP) PO SCH (22:04)
[2016-08-03] MEDS ORDERED: PT OWN MED DRAWER 7, Y5N ONE ×2 (06:16→20:29)
[2016-08-03] MEDS: clonazePAM 0.5 MG TABLET PO SCH ×4 (06:40→21:56)
[2016-08-03] MEDS: LACTOBACILLUS ACIDOPHILUS 1 EACH TAB (FP) PO SCH (09:24)
[2016-08-03] MEDS: APIXABAN 2.5 MG TABLET PO SCH ×2 (09:24→21:56)
[2016-08-03] MEDS: MULTIVITAMINS (DAILY MVI) TABLET (FP) PO SCH (09:24)
[2016-08-03] MEDS: ASCORBIC ACID 500 MG TABLET (FP) PO SCH (09:24)
[2016-08-03] MEDS: CITALOPRAM HYDROBROMIDE 10 MG TABLET (FP) PO SCH (09:25)
[2016-08-03] MEDS: ASPIRIN 81 MG CHEWABLE TABLETS PO SCH (09:25)
[2016-08-03] MEDS: FERROUS SO4 325 MG TABLET (FP) PO SCH (09:26)
[2016-08-03] MEDS: METOPROLOL TARTRATE 25 MG TABLET (FP) PO SCH ×2 (09:27→21:56)
[2016-08-03] MEDS: FOLIC ACID 1 MG TABLET (FP) PO SCH (09:27)
[2016-08-03] MEDS: NYSTATIN/TRIAMCINOLONE TOPICAL CREAM 15 GM TUBE TP SCH ×2 (09:27→22:04)
[2016-08-03] MEDS: DIGOXIN 0.125 MG TABLET (FP) PO SCH (09:27)
[2016-08-03] MEDS: MAGNESIUM OXIDE 400 MG TABLET (FP) PO SCH ×2 (09:27→21:56)
--- NOTE | 2016-08-03 10:22 | PN ---
Progress Note, Physician Chief Complaint: MORE ALERT TODAY AWAKE ALERT X 2 ABX STOPPED WILL OBSERVE - Current Medication List Current Medications: Active Medications Acetaminophen (Tylenol -) 650 mg PO Q6H PRN PRN Reason: FEVER OR PAIN Apixaban (Eliquis -) 2.5 mg PO BID [facility] Last Admin: 08/03/16 09:24 Dose: 2.5 mg Ascorbic Acid (Vitamin C -) 500 mg PO DAILY [facility] Last Admin: 08/03/16 09:24 Dose: 500 mg Aspirin (Asa -) 81 mg PO DAILY [facility] Last Admin: 08/03/16 09:25 Dose: 81 mg Citalopram Hydrobromide (Celexa -) 10 mg PO DAILY [facility] Last Admin: 08/03/16 09:25 Dose: 10 mg Clonazepam (Klonopin -) 0.5 mg PO TID [facility] Last Admin: 08/03/16 09:26 Dose: 0.5 mg Clonidine HCl (Catapres Tts Patch -) 0.1 mg TD Q7D@1000 [facility] Digoxin (Lanoxin -) 0.125 mg PO Q2D [facility] Last Admin: 08/03/16 09:27 Dose: 0.125 mg Fat Emulsion Intravenous (Intralipid -) 250 ml IV DAILY@2200 [facility] Last Admin: 08/02/16 21:59 Dose: 250 ml Ferrous Sulfate (Feosol -) 325 mg PO DAILY@0800 [facility] Last Admin: 08/03/16 09:26 Dose: 325 mg Folic Acid (Folic Acid -) 1 mg PO DAILY [facility] Last Admin: 08/03/16 09:27 Dose: 1 mg Amino Acids (Clinimix -) 1,000 mls @ 42 mls/hr IV Q24H [facility] Last Admin: 08/02/16 14:33 Dose: Not Given Lactobacillus Acidophilus (Bacid -) 1 tab PO DAILY [facility] Last Admin: 08/03/16 09:24 Dose: 1 tab Magnesium Oxide (Mag-Ox -) 400 mg PO BID [facility] Last Admin: 08/03/16 09:27 Dose: 400 mg Metoprolol Tartrate (Lopressor -) 25 mg PO BID [facility] Last Admin: 08/03/16 09:27 Dose: 25 mg Mirtazapine (Remeron -) 7.5 mg PO HS [facility] Last Admin: 08/02/16 22:04 Dose: 7.5 mg Multivitamins/Minerals/Vitamin C (Tab-A-Vit -) 1 tab PO DAILY [facility] Last Admin: 08/03/16 09:24 Dose: 1 tab Nystatin/Triamcinolone Acetonide (Mycolog Ii Cream -) 1 applic TP BID [facility] Last Admin: 08/03/16 09:27 Dose: 1 applic Ondansetron HCl (Zofran Injection) 4 mg IVPB Q4H PRN PRN Reason: NAUSEA AND/OR VOMITING Last Admin: 07/15/16 19:09 Dose: 4 mg - Objective Vital Signs: Vital Signs Temperature 98.8 F 08/03/16 06:00 Pulse Rate 85 08/03/16 10:01 Respiratory Rate 18 08/03/16 06:00 Blood Pressure 121/82 08/03/16 06:00 O2 Sat by Pulse Oximetry (%) 97 08/03/16 10:01 Constitutional: Yes: Mild Distress Eyes: Yes: WNL HENT: Yes: WNL Neck: Yes: WNL Cardiovascular: Yes: Pulse Irregular Respiratory: Yes: On Nasal O2, Wheezes Gastrointestinal: Yes: Other (LLQ DRAIN PURELENT WHITE DISCHARGE CONTINUED) Genitourinary: Yes: Incontinence Musculoskeletal: Yes: Muscle Weakness Edema: Yes Edema: LLE: Trace, RLE: Trace Peripheral Pulses WNL: Yes Integumentary: Yes: Pressure Ulcer, Venous Stasis Changes Wound/Incision: Yes: Dressing Dry and Intact, Draining Neurological: Yes: Other ...Motor Strength: LLE, RLE Psychiatric: Yes: Other Labs: CBC, BMP 08/02/16 06:20 08/02/16 06:20 INR, PTT INR 1.85 (0.82-1.09) H 07/27/16 08:35 Problem List - Problems (1) Fever Code(s): R50.9 - FEVER, UNSPECIFIED (2) Severe sepsis Code(s): A41.9 - SEPSIS, UNSPECIFIED ORGANISM R65.20 - SEVERE SEPSIS WITHOUT SEPTIC SHOCK (3) Afib Code(s): I48.91 - UNSPECIFIED ATRIAL FIBRILLATION (4) Anemia Code(s): D64.9 - ANEMIA, UNSPECIFIED Qualifiers: Other causes of anemia: chronic disease, other (5) Anxiety Code(s): F41.9 - ANXIETY DISORDER, UNSPECIFIED (6) Uterine abscess Code(s): N71.9 - INFLAMMATORY DISEASE OF UTERUS, UNSPECIFIED (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 Assessment/Plan AWAITING PLACEMENT TO [facility]AVALRY VS [facility] STOPPED ABX WILL OBSERVE CLIMIX IV OOB TO CHAIR INOPERABLE UTERINE TUMOR CONTINUED TO DRAIN NOURISHMENT IS POOR BY MOUTH, ON CLINMIX CHECK LABS AM
[2016-08-03 11:17] LABS: MCH 27.4 pg (25.7-33.7); MCHC 32.1 g/dl (32.0-36.0); MEAN CELL VOLUME 85.6 fl (80-96); PLATELET COUNT 264 K/MM3 (134-434); RDW 17.5 % (11.6-15.6); WHITE BLOOD COUNT 7.5 K/mm3 (4.0-10.0)
[2016-08-03 12:46] LABS: ALBUMIN 2.2 g/dl (3.4-5.0); ALK PHOS 51 U/L (45-117); ANION GAP 11 (8-16); BILIRUBIN,TOTAL 0.2 mg/dL (0.2-1.0); CALCIUM 8.5 mg/dL (8.5-10.1); CO2 21 mmol/L (21-32); CREATININE 0.6 mg/dL (0.55-1.02); GLUCOSE,RANDOM 130 mg/dL (74-106); SGPT/ALT 11 U/L (12-78); TOT PROT 5.9 g/dl (6.4-8.2)
[2016-08-03 12:57] LABS: MAGNESIUM 2.1 mg/dL (1.8-2.4); SGOT/AST 24 U/L (15-37)
[2016-08-03] MEDS: AMINO ACIDS 4.25%/D5W 1,000 ML IV SCH (16:35)
[2016-08-03 19:52] LABS: URINE APPEARANCE SLCLOUDY; URINE BILIRUBIN NEGATIVE (NEGATIVE); URINE COLOR YELLOW; URINE GLUCOSE (UA) NEGATIVE (NEGATIVE); URINE KETONE NEGATIVE (NEGATIVE); URINE LEUK ESTERASE NEGATIVE (NEGATIVE); URINE NITRITE NEGATIVE (NEGATIVE); URINE PROTEIN NEGATIVE (NEGATIVE); URINE UROBILINOGEN NEGATIVE E.U./dl (0.2-1.0)
[2016-08-03 19:55] LABS: URINE BLOOD 1+ (NEGATIVE)
[2016-08-03 19:59] LABS: CALCIUM OXALATE CRYSTALS RARE /hpf (NONE SEEN); URINE BACTERIA MODERATE /hpf (NONE SEEN); URINE MUCUS RARE; URINE RBC 25 /hpf (0-3); URINE WBC 4 /hpf (3-5)
[2016-08-03] MEDS: FAT EMULSIONS 20% 250 ML PREMIX INFUS.BAG IV SCH (21:56)
[2016-08-03] MEDS: MIRTAZAPINE 15 MG TABLET (FP) PO SCH (21:56)
[2016-08-04] MEDS: clonazePAM 0.5 MG TABLET PO SCH ×3 (06:12→21:13)
[2016-08-04] MEDS: FERROUS SO4 325 MG TABLET (FP) PO SCH (09:29)
[2016-08-04] MEDS: ASPIRIN 81 MG CHEWABLE TABLETS PO SCH (09:30)
[2016-08-04] MEDS: LACTOBACILLUS ACIDOPHILUS 1 EACH TAB (FP) PO SCH (09:30)
[2016-08-04] MEDS: MAGNESIUM OXIDE 400 MG TABLET (FP) PO SCH ×2 (09:30→21:13)
[2016-08-04] MEDS: FOLIC ACID 1 MG TABLET (FP) PO SCH (09:30)
[2016-08-04] MEDS: MULTIVITAMINS (DAILY MVI) TABLET (FP) PO SCH (09:30)
[2016-08-04] MEDS: ASCORBIC ACID 500 MG TABLET (FP) PO SCH (09:30)
[2016-08-04] MEDS: APIXABAN 2.5 MG TABLET PO SCH ×2 (09:30→21:13)
[2016-08-04] MEDS: METOPROLOL TARTRATE 25 MG TABLET (FP) PO SCH ×2 (09:30→21:12)
[2016-08-04] MEDS: CITALOPRAM HYDROBROMIDE 10 MG TABLET (FP) PO SCH (09:30)
[2016-08-04] MEDS: NYSTATIN/TRIAMCINOLONE TOPICAL CREAM 15 GM TUBE TP SCH ×2 (10:43→21:11)
[2016-08-04] MEDS: AMINO ACIDS 4.25%/D5W 1,000 ML IV SCH ×2 (10:43→15:00)
[2016-08-04] MEDS ORDERED: PT OWN MED DRAWER 7, Y5N ONE (21:03)
[2016-08-04] MEDS: FAT EMULSIONS 20% 250 ML PREMIX INFUS.BAG IV SCH (21:10)
[2016-08-04] MEDS: MIRTAZAPINE 15 MG TABLET (FP) PO SCH (21:13)
--- NOTE | 2016-08-04 21:34 | PN ---
Progress Note (short form) - Note Progress Note: OFF ABX AWAITING PLACEMENT TO [facility] IV CLINIMIX PATIENT SEEN AND EXAMINED NO CHANGES APPETITE STILL POOR LABS REVIEWED NO FEVER Problem List - Problems (1) Fever Code(s): R50.9 - FEVER, UNSPECIFIED (2) Severe sepsis Code(s): A41.9 - SEPSIS, UNSPECIFIED ORGANISM R65.20 - SEVERE SEPSIS WITHOUT SEPTIC SHOCK (3) Afib Code(s): I48.91 - UNSPECIFIED ATRIAL FIBRILLATION (4) Anemia Code(s): D64.9 - ANEMIA, UNSPECIFIED Qualifiers: Other causes of anemia: chronic disease, other (5) Anxiety Code(s): F41.9 - ANXIETY DISORDER, UNSPECIFIED (6) Uterine abscess Code(s): N71.9 - INFLAMMATORY DISEASE OF UTERUS, UNSPECIFIED (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
[2016-08-05] MEDS: clonazePAM 0.5 MG TABLET PO SCH ×3 (06:22→22:02)
[2016-08-05] MEDS: DIGOXIN 0.125 MG TABLET (FP) PO SCH (09:33)
[2016-08-05] MEDS: FERROUS SO4 325 MG TABLET (FP) PO SCH (09:33)
[2016-08-05] MEDS: APIXABAN 2.5 MG TABLET PO SCH ×2 (09:33→22:02)
[2016-08-05] MEDS: MULTIVITAMINS (DAILY MVI) TABLET (FP) PO SCH (09:33)
[2016-08-05] MEDS: LACTOBACILLUS ACIDOPHILUS 1 EACH TAB (FP) PO SCH (09:34)
[2016-08-05] MEDS: CITALOPRAM HYDROBROMIDE 10 MG TABLET (FP) PO SCH (09:34)
[2016-08-05] MEDS: METOPROLOL TARTRATE 25 MG TABLET (FP) PO SCH ×2 (09:34→22:02)
[2016-08-05] MEDS: ASPIRIN 81 MG CHEWABLE TABLETS PO SCH (09:34)
[2016-08-05] MEDS: FOLIC ACID 1 MG TABLET (FP) PO SCH (09:34)
[2016-08-05] MEDS: ASCORBIC ACID 500 MG TABLET (FP) PO SCH (09:34)
[2016-08-05] MEDS: MAGNESIUM OXIDE 400 MG TABLET (FP) PO SCH ×2 (09:34→22:02)
[2016-08-05] MEDS: NYSTATIN/TRIAMCINOLONE TOPICAL CREAM 15 GM TUBE TP SCH ×2 (09:35→22:03)
[2016-08-05] MEDS: AMINO ACIDS 4.25%/D5W 1,000 ML IV SCH ×2 (10:30→16:04)
[2016-08-05] MEDS: ACETAMINOPHEN 325 MG TABLET (FP) PO PRN (12:29)
--- NOTE | 2016-08-05 15:37 | PN ---
Progress Note, Physician Chief Complaint: asleep, comfortable , calm - Current Medication List Current Medications: Active Medications Acetaminophen (Tylenol -) 650 mg PO Q6H PRN PRN Reason: FEVER OR PAIN Last Admin: 08/05/16 12:29 Dose: 650 mg Apixaban (Eliquis -) 2.5 mg PO BID [facility] Last Admin: 08/05/16 09:33 Dose: 2.5 mg Ascorbic Acid (Vitamin C -) 500 mg PO DAILY [facility] Last Admin: 08/05/16 09:34 Dose: 500 mg Aspirin (Asa -) 81 mg PO DAILY [facility] Last Admin: 08/05/16 09:34 Dose: 81 mg Citalopram Hydrobromide (Celexa -) 10 mg PO DAILY [facility] Last Admin: 08/05/16 09:34 Dose: 10 mg Clonazepam (Klonopin -) 0.5 mg PO TID [facility] Last Admin: 08/05/16 13:30 Dose: 0.5 mg Clonidine HCl (Catapres Tts Patch -) 0.1 mg TD Q7D@1000 [facility] Digoxin (Lanoxin -) 0.125 mg PO Q2D [facility] Last Admin: 08/05/16 09:33 Dose: 0.125 mg Fat Emulsion Intravenous (Intralipid -) 250 ml IV DAILY@2200 [facility] Last Admin: 08/04/16 21:10 Dose: 250 ml Ferrous Sulfate (Feosol -) 325 mg PO DAILY@0800 [facility] Last Admin: 08/05/16 09:33 Dose: 325 mg Folic Acid (Folic Acid -) 1 mg PO DAILY [facility] Last Admin: 08/05/16 09:34 Dose: 1 mg Amino Acids (Clinimix -) 1,000 mls @ 42 mls/hr IV Q24H [facility] Last Admin: 08/05/16 10:30 Dose: 42 mls/hr Lactobacillus Acidophilus (Bacid -) 1 tab PO DAILY [facility] Last Admin: 08/05/16 09:34 Dose: 1 tab Magnesium Oxide (Mag-Ox -) 400 mg PO BID [facility] Last Admin: 08/05/16 09:34 Dose: 400 mg Metoprolol Tartrate (Lopressor -) 25 mg PO BID [facility] Last Admin: 08/05/16 09:34 Dose: 25 mg Mirtazapine (Remeron -) 7.5 mg PO HS [facility] Last Admin: 08/04/16 21:13 Dose: 7.5 mg Multivitamins/Minerals/Vitamin C (Tab-A-Vit -) 1 tab PO DAILY [facility] Last Admin: 08/05/16 09:33 Dose: 1 tab Nystatin/Triamcinolone Acetonide (Mycolog Ii Cream -) 1 applic TP BID [facility] Last Admin: 08/05/16 09:35 Dose: 1 applic Ondansetron HCl (Zofran Injection) 4 mg IVPB Q4H PRN PRN Reason: NAUSEA AND/OR VOMITING Last Admin: 07/15/16 19:09 Dose: 4 mg - Objective Vital Signs: Vital Signs Temperature 98.6 F 08/05/16 15:19 Pulse Rate 105 H 08/05/16 15:19 Respiratory Rate 20 08/05/16 15:19 Blood Pressure 117/69 08/05/16 15:19 O2 Sat by Pulse Oximetry (%) 96 08/05/16 09:00 Constitutional: Yes: No Distress Eyes: Yes: WNL HENT: Yes: WNL Neck: Yes: WNL Cardiovascular: Yes: Pulse Irregular Respiratory: Yes: SOB, Wheezes Gastrointestinal: Yes: Other (llq drain no discharge) Genitourinary: Yes: Incontinence Musculoskeletal: Yes: Muscle Weakness Extremities: Yes: Other Edema: No Integumentary: Yes: WNL Wound/Incision: Yes: Dressing Dry and Intact Neurological: Yes: WNL, Pre-Existing Deficit, Unsteady Gait, Weakness ...Motor Strength: LLE, RLE Psychiatric: Yes: Other Labs: CBC, BMP 08/03/16 10:55 08/03/16 10:55 INR, PTT INR 1.85 (0.82-1.09) H 07/27/16 08:35 Problem List - Problems (1) Fever Code(s): R50.9 - FEVER, UNSPECIFIED (2) Severe sepsis Code(s): A41.9 - SEPSIS, UNSPECIFIED ORGANISM R65.20 - SEVERE SEPSIS WITHOUT SEPTIC SHOCK (3) Afib Code(s): I48.91 - UNSPECIFIED ATRIAL FIBRILLATION (4) Anemia Code(s): D64.9 - ANEMIA, UNSPECIFIED Qualifiers: Other causes of anemia: chronic disease, other (5) Anxiety Code(s): F41.9 - ANXIETY DISORDER, UNSPECIFIED (6) Uterine abscess Code(s): N71.9 - INFLAMMATORY DISEASE OF UTERUS, UNSPECIFIED (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
[2016-08-05] MEDS ORDERED: PT OWN MED DRAWER 7, Y5N ONE (21:59)
[2016-08-05] MEDS: MIRTAZAPINE 15 MG TABLET (FP) PO SCH (22:02)
[2016-08-05] MEDS: FAT EMULSIONS 20% 250 ML PREMIX INFUS.BAG IV SCH (22:03)
[2016-08-06] MEDS: clonazePAM 0.5 MG TABLET PO SCH ×3 (06:10→21:27)
[2016-08-06 07:34] LABS: MCH 28.4 pg (25.7-33.7); MCHC 32.6 g/dl (32.0-36.0); MEAN CELL VOLUME 87.1 fl (80-96); MEAN PLT VOLUME 8.5 fl (7.5-11.1); PLATELET COUNT 260 K/MM3 (134-434); WHITE BLOOD COUNT 8.5 K/mm3 (4.0-10.0)
[2016-08-06 08:11] LABS: ALBUMIN 2.5 g/dl (3.4-5.0); ALK PHOS 54 U/L (45-117); ANION GAP 7 (8-16); BILIRUBIN,TOTAL 0.2 mg/dL (0.2-1.0); CALCIUM 8.5 mg/dL (8.5-10.1); CO2 28 mmol/L (21-32); CREATININE 0.6 mg/dL (0.55-1.02); GLUCOSE,RANDOM 93 mg/dL (74-106); SGOT/AST 20 U/L (15-37); SGPT/ALT 19 U/L (12-78); TOT PROT 6.5 g/dl (6.4-8.2)
[2016-08-06] MEDS: ASPIRIN 81 MG CHEWABLE TABLETS PO SCH (09:06)
[2016-08-06] MEDS: CITALOPRAM HYDROBROMIDE 10 MG TABLET (FP) PO SCH (09:06)
[2016-08-06] MEDS: MULTIVITAMINS (DAILY MVI) TABLET (FP) PO SCH (09:06)
[2016-08-06] MEDS: MAGNESIUM OXIDE 400 MG TABLET (FP) PO SCH ×2 (09:07→21:27)
[2016-08-06] MEDS: METOPROLOL TARTRATE 25 MG TABLET (FP) PO SCH ×2 (09:07→21:27)
[2016-08-06] MEDS: FOLIC ACID 1 MG TABLET (FP) PO SCH (09:07)
[2016-08-06] MEDS: FERROUS SO4 325 MG TABLET (FP) PO SCH (09:07)
[2016-08-06] MEDS: LACTOBACILLUS ACIDOPHILUS 1 EACH TAB (FP) PO SCH (09:07)
[2016-08-06] MEDS: APIXABAN 2.5 MG TABLET PO SCH ×2 (09:07→21:27)
[2016-08-06] MEDS: ASCORBIC ACID 500 MG TABLET (FP) PO SCH (09:07)
[2016-08-06] MEDS: NYSTATIN/TRIAMCINOLONE TOPICAL CREAM 15 GM TUBE TP SCH ×2 (09:08→21:39)
--- NOTE | 2016-08-06 09:24 | PN ---
Progress Note, Physician History of Present Illness: awake in bed - Current Medication List Current Medications: Active Medications Acetaminophen (Tylenol -) 650 mg PO Q6H PRN PRN Reason: FEVER OR PAIN Last Admin: 08/05/16 12:29 Dose: 650 mg Apixaban (Eliquis -) 2.5 mg PO BID [facility] Last Admin: 08/06/16 09:07 Dose: 2.5 mg Ascorbic Acid (Vitamin C -) 500 mg PO DAILY [facility] Last Admin: 08/06/16 09:07 Dose: 500 mg Aspirin (Asa -) 81 mg PO DAILY [facility] Last Admin: 08/06/16 09:06 Dose: 81 mg Citalopram Hydrobromide (Celexa -) 10 mg PO DAILY [facility] Last Admin: 08/06/16 09:06 Dose: 10 mg Clonazepam (Klonopin -) 0.5 mg PO TID [facility] Last Admin: 08/06/16 06:10 Dose: 0.5 mg Clonidine HCl (Catapres Tts Patch -) 0.1 mg TD Q7D@1000 [facility] Digoxin (Lanoxin -) 0.125 mg PO Q2D [facility] Last Admin: 08/05/16 09:33 Dose: 0.125 mg Fat Emulsion Intravenous (Intralipid -) 250 ml IV DAILY@2200 [facility] Last Admin: 08/05/16 22:03 Dose: 250 ml Ferrous Sulfate (Feosol -) 325 mg PO DAILY@0800 [facility] Last Admin: 08/06/16 09:07 Dose: 325 mg Folic Acid (Folic Acid -) 1 mg PO DAILY [facility] Last Admin: 08/06/16 09:07 Dose: 1 mg Amino Acids (Clinimix -) 1,000 mls @ 42 mls/hr IV Q24H [facility] Last Admin: 08/05/16 16:04 Dose: Not Given Lactobacillus Acidophilus (Bacid -) 1 tab PO DAILY [facility] Last Admin: 08/06/16 09:07 Dose: 1 tab Magnesium Oxide (Mag-Ox -) 400 mg PO BID [facility] Last Admin: 08/06/16 09:07 Dose: 400 mg Metoprolol Tartrate (Lopressor -) 25 mg PO BID [facility] Last Admin: 08/06/16 09:07 Dose: 25 mg Mirtazapine (Remeron -) 7.5 mg PO HS [facility] Last Admin: 08/05/16 22:02 Dose: 7.5 mg Multivitamins/Minerals/Vitamin C (Tab-A-Vit -) 1 tab PO DAILY [facility] Last Admin: 08/06/16 09:06 Dose: 1 tab Nystatin/Triamcinolone Acetonide (Mycolog Ii Cream -) 1 applic TP BID [facility] Last Admin: 08/06/16 09:08 Dose: 1 applic Ondansetron HCl (Zofran Injection) 4 mg IVPB Q4H PRN PRN Reason: NAUSEA AND/OR VOMITING Last Admin: 07/15/16 19:09 Dose: 4 mg - Objective Vital Signs: Vital Signs Temperature 97.9 F 08/05/16 21:00 Pulse Rate 86 08/05/16 21:00 Respiratory Rate 18 08/05/16 21:00 Blood Pressure 120/64 08/05/16 21:00 O2 Sat by Pulse Oximetry (%) 96 08/05/16 21:00 Cardiovascular: Yes: S1, S2 Respiratory: Yes: Diminished Gastrointestinal: Yes: Normal Bowel Sounds, Soft Labs: CBC, BMP 08/06/16 06:20 08/06/16 06:20 INR, PTT INR 1.85 (0.82-1.09) H 07/27/16 08:35 Problem List - Problems (1) Poor nutrition Assessment/Plan: CLINIMEX Code(s): E63.9 - NUTRITIONAL DEFICIENCY, UNSPECIFIED (2) Afib Assessment/Plan: ATRIAL FLUTTER ( ON ELIQUIS), Code(s): I48.91 - UNSPECIFIED ATRIAL FIBRILLATION (3) Uterine abscess Assessment/Plan: S/P DRAINAGE WITH TUMOR--INOPERABLE Code(s): N71.9 - INFLAMMATORY DISEASE OF UTERUS, UNSPECIFIED
[2016-08-06] MEDS: AMINO ACIDS 4.25%/D5W 1,000 ML IV SCH (17:34)
[2016-08-06] MEDS ORDERED: PT OWN MED DRAWER 7, Y5N ONE ×2 (21:20→21:22)
[2016-08-06] MEDS: MIRTAZAPINE 15 MG TABLET (FP) PO SCH (21:27)
[2016-08-06] MEDS: FAT EMULSIONS 20% 250 ML PREMIX INFUS.BAG IV SCH (21:28)
[2016-08-07] MEDS: clonazePAM 0.5 MG TABLET PO SCH ×3 (05:39→21:53)
[2016-08-07] MEDS: CITALOPRAM HYDROBROMIDE 10 MG TABLET (FP) PO SCH (08:59)
[2016-08-07] MEDS: DIGOXIN 0.125 MG TABLET (FP) PO SCH (08:59)
[2016-08-07] MEDS: MAGNESIUM OXIDE 400 MG TABLET (FP) PO SCH ×2 (09:00→21:52)
[2016-08-07] MEDS: APIXABAN 2.5 MG TABLET PO SCH ×2 (09:00→21:52)
[2016-08-07] MEDS: ASCORBIC ACID 500 MG TABLET (FP) PO SCH (09:00)
[2016-08-07] MEDS: FOLIC ACID 1 MG TABLET (FP) PO SCH (09:00)
[2016-08-07] MEDS: ASPIRIN 81 MG CHEWABLE TABLETS PO SCH (09:00)
[2016-08-07] MEDS: FERROUS SO4 325 MG TABLET (FP) PO SCH (09:00)
[2016-08-07] MEDS: LACTOBACILLUS ACIDOPHILUS 1 EACH TAB (FP) PO SCH (09:00)
[2016-08-07] MEDS: METOPROLOL TARTRATE 25 MG TABLET (FP) PO SCH ×2 (09:00→21:52)
[2016-08-07] MEDS: MULTIVITAMINS (DAILY MVI) TABLET (FP) PO SCH (09:00)
--- NOTE | 2016-08-07 11:10 | PN ---
Progress Note, Physician History of Present Illness: awake in bed - Current Medication List Current Medications: Active Medications Acetaminophen (Tylenol -) 650 mg PO Q6H PRN PRN Reason: FEVER OR PAIN Last Admin: 08/05/16 12:29 Dose: 650 mg Apixaban (Eliquis -) 2.5 mg PO BID [facility] Last Admin: 08/07/16 09:00 Dose: 2.5 mg Ascorbic Acid (Vitamin C -) 500 mg PO DAILY [facility] Last Admin: 08/07/16 09:00 Dose: 500 mg Aspirin (Asa -) 81 mg PO DAILY [facility] Last Admin: 08/07/16 09:00 Dose: 81 mg Citalopram Hydrobromide (Celexa -) 10 mg PO DAILY [facility] Last Admin: 08/07/16 08:59 Dose: 10 mg Clonazepam (Klonopin -) 0.5 mg PO TID [facility] Last Admin: 08/07/16 05:39 Dose: 0.5 mg Clonidine HCl (Catapres Tts Patch -) 0.1 mg TD Q7D@1000 [facility] Digoxin (Lanoxin -) 0.125 mg PO Q2D [facility] Last Admin: 08/07/16 08:59 Dose: 0.125 mg Fat Emulsion Intravenous (Intralipid -) 250 ml IV DAILY@2200 [facility] Last Admin: 08/06/16 21:28 Dose: 250 ml Ferrous Sulfate (Feosol -) 325 mg PO DAILY@0800 [facility] Last Admin: 08/07/16 09:00 Dose: 325 mg Folic Acid (Folic Acid -) 1 mg PO DAILY [facility] Last Admin: 08/07/16 09:00 Dose: 1 mg Amino Acids (Clinimix -) 1,000 mls @ 42 mls/hr IV Q24H [facility] Last Admin: 08/06/16 17:34 Dose: 42 mls/hr Lactobacillus Acidophilus (Bacid -) 1 tab PO DAILY [facility] Last Admin: 08/07/16 09:00 Dose: 1 tab Magnesium Oxide (Mag-Ox -) 400 mg PO BID [facility] Last Admin: 08/07/16 09:00 Dose: 400 mg Metoprolol Tartrate (Lopressor -) 25 mg PO BID [facility] Last Admin: 08/07/16 09:00 Dose: 25 mg Mirtazapine (Remeron -) 7.5 mg PO HS [facility] Last Admin: 08/06/16 21:27 Dose: 7.5 mg Multivitamins/Minerals/Vitamin C (Tab-A-Vit -) 1 tab PO DAILY [facility] Last Admin: 08/07/16 09:00 Dose: 1 tab Nystatin/Triamcinolone Acetonide (Mycolog Ii Cream -) 1 applic TP BID [facility] Last Admin: 08/06/16 21:39 Dose: 1 applic Ondansetron HCl (Zofran Injection) 4 mg IVPB Q4H PRN PRN Reason: NAUSEA AND/OR VOMITING Last Admin: 07/15/16 19:09 Dose: 4 mg - Objective Vital Signs: Vital Signs Temperature 98.7 F 08/07/16 10:00 Pulse Rate 104 H 08/07/16 10:00 Respiratory Rate 18 08/07/16 10:00 Blood Pressure 164/77 08/07/16 10:00 O2 Sat by Pulse Oximetry (%) 93 L 08/07/16 09:00 Cardiovascular: Yes: S1, S2 Respiratory: Yes: Regular, CTA Bilaterally Gastrointestinal: Yes: Normal Bowel Sounds, Soft Labs: CBC, BMP 08/06/16 06:20 08/06/16 06:20 INR, PTT INR 1.85 (0.82-1.09) H 07/27/16 08:35 Problem List - Problems (1) Poor nutrition Assessment/Plan: CLINIMEX Code(s): E63.9 - NUTRITIONAL DEFICIENCY, UNSPECIFIED (2) Afib Assessment/Plan: ATRIAL FLUTTER ( ON ELIQUIS), Code(s): I48.91 - UNSPECIFIED ATRIAL FIBRILLATION (3) Uterine abscess Assessment/Plan: S/P DRAINAGE WITH TUMOR--INOPERABLE Code(s): N71.9 - INFLAMMATORY DISEASE OF UTERUS, UNSPECIFIED
--- NOTE | 2016-08-07 12:29 | PN ---
Progress Note (short form) - Note Progress Note: No acute events overnight. Afebrile. NAD. Intake & Output 08/04/16 08/05/16 08/06/16 08/07/16 23:59 23:59 23:59 23:59 Intake Total 1484 1256 849.2 861.2 Balance 1484 1256 849.2 861.2 Last Vital Signs Temp Pulse Resp BP Pulse Ox 98.7 F 104 H 18 164/77 93 L 08/07/16 10:00 08/07/16 10:00 08/07/16 10:00 08/07/16 10:00 08/07/16 09:00 Active Medications Acetaminophen (Tylenol -) 650 mg PO Q6H PRN PRN Reason: FEVER OR PAIN Last Admin: 08/05/16 12:29 Dose: 650 mg Apixaban (Eliquis -) 2.5 mg PO BID [facility] Last Admin: 08/07/16 09:00 Dose: 2.5 mg Ascorbic Acid (Vitamin C -) 500 mg PO DAILY [facility] Last Admin: 08/07/16 09:00 Dose: 500 mg Aspirin (Asa -) 81 mg PO DAILY [facility] Last Admin: 08/07/16 09:00 Dose: 81 mg Citalopram Hydrobromide (Celexa -) 10 mg PO DAILY [facility] Last Admin: 08/07/16 08:59 Dose: 10 mg Clonazepam (Klonopin -) 0.5 mg PO TID [facility] Last Admin: 08/07/16 05:39 Dose: 0.5 mg Clonidine HCl (Catapres Tts Patch -) 0.1 mg TD Q7D@1000 [facility] Digoxin (Lanoxin -) 0.125 mg PO Q2D [facility] Last Admin: 08/07/16 08:59 Dose: 0.125 mg Fat Emulsion Intravenous (Intralipid -) 250 ml IV DAILY@2200 [facility] Last Admin: 08/06/16 21:28 Dose: 250 ml Ferrous Sulfate (Feosol -) 325 mg PO DAILY@0800 [facility] Last Admin: 08/07/16 09:00 Dose: 325 mg Folic Acid (Folic Acid -) 1 mg PO DAILY [facility] Last Admin: 08/07/16 09:00 Dose: 1 mg Amino Acids (Clinimix -) 1,000 mls @ 42 mls/hr IV Q24H [facility] Last Admin: 08/06/16 17:34 Dose: 42 mls/hr Lactobacillus Acidophilus (Bacid -) 1 tab PO DAILY [facility] Last Admin: 08/07/16 09:00 Dose: 1 tab Magnesium Oxide (Mag-Ox -) 400 mg PO BID [facility] Last Admin: 08/07/16 09:00 Dose: 400 mg Metoprolol Tartrate (Lopressor -) 25 mg PO BID [facility] Last Admin: 08/07/16 09:00 Dose: 25 mg Mirtazapine (Remeron -) 7.5 mg PO HS [facility] Last Admin: 08/06/16 21:27 Dose: 7.5 mg Multivitamins/Minerals/Vitamin C (Tab-A-Vit -) 1 tab PO DAILY [facility] Last Admin: 08/07/16 09:00 Dose: 1 tab Nystatin/Triamcinolone Acetonide (Mycolog Ii Cream -) 1 applic TP BID [facility] Last Admin: 08/06/16 21:39 Dose: 1 applic Ondansetron HCl (Zofran Injection) 4 mg IVPB Q4H PRN PRN Reason: NAUSEA AND/OR VOMITING Last Admin: 07/15/16 19:09 Dose: 4 mg Gen: NAD Heart: RRR Lung: decreased breath sounds at the bases Abd: soft, nontender Ext: no edema A/P Pelvic Abscess h/o Uterine Rupture Pleural Effusions Atelectasis - antibiotics per ID - aspiration precautions - incentive spirometry - DVT prophylaxis - Comfort/supportive care Dr Ybarra
[2016-08-07] MEDS: NYSTATIN/TRIAMCINOLONE TOPICAL CREAM 15 GM TUBE TP SCH ×2 (13:53→21:51)
[2016-08-07] MEDS: AMINO ACIDS 4.25%/D5W 1,000 ML IV SCH (15:20)
[2016-08-07] MEDS ORDERED: PT OWN MED DRAWER 7, Y5N ONE (21:39)
[2016-08-07] MEDS: MIRTAZAPINE 15 MG TABLET (FP) PO SCH (21:52)
[2016-08-07] MEDS: FAT EMULSIONS 20% 250 ML PREMIX INFUS.BAG IV SCH (21:53)
[2016-08-08] MEDS: clonazePAM 0.5 MG TABLET PO SCH ×3 (05:38→21:41)
--- NOTE | 2016-08-08 06:21 | PN ---
Progress Note, Physician Chief Complaint: WANTS TO KNOW NAME OF PLACEMENT FACILITY - Current Medication List Current Medications: Active Medications Acetaminophen (Tylenol -) 650 mg PO Q6H PRN PRN Reason: FEVER OR PAIN Last Admin: 08/05/16 12:29 Dose: 650 mg Apixaban (Eliquis -) 2.5 mg PO BID [facility] Last Admin: 08/07/16 21:52 Dose: 2.5 mg Ascorbic Acid (Vitamin C -) 500 mg PO DAILY [facility] Last Admin: 08/07/16 09:00 Dose: 500 mg Aspirin (Asa -) 81 mg PO DAILY [facility] Last Admin: 08/07/16 09:00 Dose: 81 mg Citalopram Hydrobromide (Celexa -) 10 mg PO DAILY [facility] Last Admin: 08/07/16 08:59 Dose: 10 mg Clonazepam (Klonopin -) 0.5 mg PO TID [facility] Last Admin: 08/08/16 05:38 Dose: 0.5 mg Clonidine HCl (Catapres Tts Patch -) 0.1 mg TD Q7D@1000 [facility] Digoxin (Lanoxin -) 0.125 mg PO Q2D [facility] Last Admin: 08/07/16 08:59 Dose: 0.125 mg Fat Emulsion Intravenous (Intralipid -) 250 ml IV DAILY@2200 [facility] Last Admin: 08/07/16 21:53 Dose: 250 ml Ferrous Sulfate (Feosol -) 325 mg PO DAILY@0800 [facility] Last Admin: 08/07/16 09:00 Dose: 325 mg Folic Acid (Folic Acid -) 1 mg PO DAILY [facility] Last Admin: 08/07/16 09:00 Dose: 1 mg Amino Acids (Clinimix -) 1,000 mls @ 42 mls/hr IV Q24H [facility] Last Admin: 08/07/16 15:20 Dose: 42 mls/hr Lactobacillus Acidophilus (Bacid -) 1 tab PO DAILY [facility] Last Admin: 08/07/16 09:00 Dose: 1 tab Magnesium Oxide (Mag-Ox -) 400 mg PO BID [facility] Last Admin: 08/07/16 21:52 Dose: 400 mg Metoprolol Tartrate (Lopressor -) 25 mg PO BID [facility] Last Admin: 08/07/16 21:52 Dose: 25 mg Mirtazapine (Remeron -) 7.5 mg PO HS [facility] Last Admin: 08/07/16 21:52 Dose: 7.5 mg Multivitamins/Minerals/Vitamin C (Tab-A-Vit -) 1 tab PO DAILY [facility] Last Admin: 08/07/16 09:00 Dose: 1 tab Nystatin/Triamcinolone Acetonide (Mycolog Ii Cream -) 1 applic TP BID [facility] Last Admin: 08/07/16 21:51 Dose: 1 applic Ondansetron HCl (Zofran Injection) 4 mg IVPB Q4H PRN PRN Reason: NAUSEA AND/OR VOMITING Last Admin: 07/15/16 19:09 Dose: 4 mg - Objective Vital Signs: Vital Signs Temperature 98.4 F 08/08/16 05:33 Pulse Rate 101 H 08/08/16 05:33 Respiratory Rate 18 08/08/16 05:33 Blood Pressure 123/97 08/08/16 05:33 O2 Sat by Pulse Oximetry (%) 100 08/07/16 20:53 Constitutional: Yes: Calm Neck: Yes: WNL Cardiovascular: Yes: WNL Respiratory: Yes: WNL Gastrointestinal: Yes: WNL Edema: No Labs: CBC, BMP 08/06/16 06:20 08/06/16 06:20 INR, PTT INR 1.85 (0.82-1.09) H 07/27/16 08:35 Problem List - Problems (1) CHF (congestive heart failure) Code(s): I50.9 - HEART FAILURE, UNSPECIFIED (2) Fever Code(s): R50.9 - FEVER, UNSPECIFIED (3) Afib Code(s): I48.91 - UNSPECIFIED ATRIAL FIBRILLATION (4) HTN (hypertension) Code(s): I10 - ESSENTIAL (PRIMARY) HYPERTENSION Qualifiers: Hypertension type: essential hypertension Qualified Code(s): I10 - Essential (primary) hypertension (5) Intra-abdominal abscess Code(s): K65.1 - PERITONEAL ABSCESS Assessment/Plan (1) Poor nutrition Assessment/Plan: CLINIMEX Code(s): E63.9 - NUTRITIONAL DEFICIENCY, UNSPECIFIED (2) Afib Assessment/Plan: ATRIAL FLUTTER ( ON ELIQUIS), Code(s): I48.91 - UNSPECIFIED ATRIAL FIBRILLATION (3) Uterine abscess Assessment/Plan: S/P DRAINAGE WITH TUMOR--INOPERABLE Code(s): N71.9 - INFLAMMATORY DISEASE OF UTERUS, UNSPECIFIED for placement [employer] [facility]
[2016-08-08] MEDS: APIXABAN 2.5 MG TABLET PO SCH ×2 (10:08→21:41)
[2016-08-08] MEDS: LACTOBACILLUS ACIDOPHILUS 1 EACH TAB (FP) PO SCH (10:08)
[2016-08-08] MEDS: FERROUS SO4 325 MG TABLET (FP) PO SCH (10:08)
[2016-08-08] MEDS: CITALOPRAM HYDROBROMIDE 10 MG TABLET (FP) PO SCH (10:08)
[2016-08-08] MEDS: ASCORBIC ACID 500 MG TABLET (FP) PO SCH (10:08)
[2016-08-08] MEDS: ASPIRIN 81 MG CHEWABLE TABLETS PO SCH (10:08)
[2016-08-08] MEDS: FOLIC ACID 1 MG TABLET (FP) PO SCH (10:09)
[2016-08-08] MEDS: NYSTATIN/TRIAMCINOLONE TOPICAL CREAM 15 GM TUBE TP SCH ×2 (10:09→21:43)
[2016-08-08] MEDS: MAGNESIUM OXIDE 400 MG TABLET (FP) PO SCH ×2 (10:09→21:41)
[2016-08-08] MEDS: MULTIVITAMINS (DAILY MVI) TABLET (FP) PO SCH (10:09)
[2016-08-08] MEDS: METOPROLOL TARTRATE 25 MG TABLET (FP) PO SCH ×2 (10:09→21:41)
[2016-08-08] MEDS: AMINO ACIDS 4.25%/D5W 1,000 ML IV SCH (18:34)
[2016-08-08] MEDS ORDERED: ACETAMINOPHEN 650 MG SUPP.RECT PR ONE (21:02)
[2016-08-08] MEDS: FAT EMULSIONS 20% 250 ML PREMIX INFUS.BAG IV SCH (21:38)
[2016-08-08] MEDS: ACETAMINOPHEN 325 MG TABLET (FP) PO PRN (21:40)
[2016-08-08] MEDS: MIRTAZAPINE 15 MG TABLET (FP) PO SCH (21:41)
[2016-08-09] MEDS: clonazePAM 0.5 MG TABLET PO SCH ×3 (05:28→21:01)
[2016-08-09] MEDS: ACETAMINOPHEN 325 MG TABLET (FP) PO PRN ×2 (05:28→21:01)
[2016-08-09 07:35] LABS: BASOPHIL 0.6 % (0-2.0); EOSINOPHIL 3.1 % (0-4.5); MCH 28.6 pg (25.7-33.7); MCHC 32.6 g/dl (32.0-36.0); MEAN CELL VOLUME 87.6 fl (80-96); MEAN PLT VOLUME 8.6 fl (7.5-11.1); NEUTROPHILS 65.6 % (42.8-82.8); PLATELET COUNT 241 K/MM3 (134-434); RDW 18.6 % (11.6-15.6); WHITE BLOOD COUNT 8.8 K/mm3 (4.0-10.0)
[2016-08-09 08:21] LABS: ALBUMIN 2.5 g/dl (3.4-5.0); ANION GAP 9 (8-16); CALCIUM 8.4 mg/dL (8.5-10.1); CO2 26 mmol/L (21-32); CREATININE 0.7 mg/dL (0.55-1.02); GLUCOSE,RANDOM 95 mg/dL (74-106); SGOT/AST 16 U/L (15-37); SGPT/ALT 18 U/L (12-78)
[2016-08-09 08:23] LABS: ALK PHOS 53 U/L (45-117); BILIRUBIN,TOTAL 0.3 mg/dL (0.2-1.0); TOT PROT 6.2 g/dl (6.4-8.2)
[2016-08-09] MEDS: LACTOBACILLUS ACIDOPHILUS 1 EACH TAB (FP) PO SCH (09:53)
[2016-08-09] MEDS: FERROUS SO4 325 MG TABLET (FP) PO SCH (09:53)
[2016-08-09] MEDS: APIXABAN 2.5 MG TABLET PO SCH ×2 (09:53→21:01)
[2016-08-09] MEDS: MULTIVITAMINS (DAILY MVI) TABLET (FP) PO SCH (09:53)
[2016-08-09] MEDS: ASPIRIN 81 MG CHEWABLE TABLETS PO SCH (09:53)
[2016-08-09] MEDS: NYSTATIN/TRIAMCINOLONE TOPICAL CREAM 15 GM TUBE TP SCH ×2 (09:54→21:03)
[2016-08-09] MEDS: FOLIC ACID 1 MG TABLET (FP) PO SCH (09:54)
[2016-08-09] MEDS: CITALOPRAM HYDROBROMIDE 10 MG TABLET (FP) PO SCH (09:54)
[2016-08-09] MEDS: DIGOXIN 0.125 MG TABLET (FP) PO SCH (09:54)
[2016-08-09] MEDS: MAGNESIUM OXIDE 400 MG TABLET (FP) PO SCH ×2 (09:54→21:02)
[2016-08-09] MEDS: METOPROLOL TARTRATE 25 MG TABLET (FP) PO SCH ×2 (09:54→21:02)
[2016-08-09] MEDS: ASCORBIC ACID 500 MG TABLET (FP) PO SCH (09:54)
[2016-08-09] MEDS ORDERED: SODIUM CHLORIDE 1,000 ML IV SCH (18:45)
--- NOTE | 2016-08-09 19:29 | PN ---
Progress Note (short form) - Note Progress Note: PATIENT DISCHARGED TO SNF AWAITING AUTHORIZATION FROM HIP FEVER DOCUMENTED TYLENOL SUPP/PO STOP CLINIMIX EATING BETTER POOR OVERLL PROGNOSIS DISCUSSED WITH HER SON MIYA DENNIS SEND TO [facility] FOR CARE AND PT Problem List - Problems (1) Fever Code(s): R50.9 - FEVER, UNSPECIFIED (2) Severe sepsis Code(s): A41.9 - SEPSIS, UNSPECIFIED ORGANISM R65.20 - SEVERE SEPSIS WITHOUT SEPTIC SHOCK (3) Afib Code(s): I48.91 - UNSPECIFIED ATRIAL FIBRILLATION (4) Anemia Code(s): D64.9 - ANEMIA, UNSPECIFIED Qualifiers: Other causes of anemia: chronic disease, other (5) Anxiety Code(s): F41.9 - ANXIETY DISORDER, UNSPECIFIED (6) Uterine abscess Code(s): N71.9 - INFLAMMATORY DISEASE OF UTERUS, UNSPECIFIED (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
[2016-08-09] MEDS: MIRTAZAPINE 15 MG TABLET (FP) PO SCH (21:02)
[2016-08-10] MEDS: clonazePAM 0.5 MG TABLET PO SCH ×3 (06:15→14:48)
[2016-08-10] MEDS: FERROUS SO4 325 MG TABLET (FP) PO SCH (10:07)
[2016-08-10] MEDS: MULTIVITAMINS (DAILY MVI) TABLET (FP) PO SCH (10:08)
[2016-08-10] MEDS: MAGNESIUM OXIDE 400 MG TABLET (FP) PO SCH (10:08)
[2016-08-10] MEDS: NYSTATIN/TRIAMCINOLONE TOPICAL CREAM 15 GM TUBE TP SCH (10:08)
[2016-08-10] MEDS: LACTOBACILLUS ACIDOPHILUS 1 EACH TAB (FP) PO SCH (10:08)
[2016-08-10] MEDS: ASCORBIC ACID 500 MG TABLET (FP) PO SCH (10:08)
[2016-08-10] MEDS: FOLIC ACID 1 MG TABLET (FP) PO SCH (10:08)
[2016-08-10] MEDS: APIXABAN 2.5 MG TABLET PO SCH (10:08)
[2016-08-10] MEDS: CITALOPRAM HYDROBROMIDE 10 MG TABLET (FP) PO SCH (10:08)
[2016-08-10] MEDS: ASPIRIN 81 MG CHEWABLE TABLETS PO SCH (10:08)
[2016-08-10] MEDS: METOPROLOL TARTRATE 25 MG TABLET (FP) PO SCH (10:08)
--- NOTE | 2016-08-10 13:04 | DS ---
Physical Examination Vital Signs: Vital Signs Temperature 99.5 F 08/10/16 10:00 Pulse Rate 81 08/10/16 11:55 Respiratory Rate 18 08/10/16 10:00 Blood Pressure 132/73 08/10/16 10:00 O2 Sat by Pulse Oximetry (%) 92 L 08/10/16 11:55 Constitutional: Yes: No Distress Eyes: Yes: WNL HENT: Yes: WNL Neck: Yes: WNL Cardiovascular: Yes: Pulse Irregular Respiratory: Yes: WNL Gastrointestinal: Yes: WNL Renal/: Yes: Vaginal Discharge (llq drain), Other Musculoskeletal: Yes: Muscle Weakness Extremities: Yes: Other Edema: No Peripheral Pulses WNL: Yes Integumentary: Yes: Venous Stasis Changes Wound/Incision: Yes: Draining (will need drain flushed and surrounding cleaned daily) Neurological: Yes: Pre-Existing Deficit Psychiatric: Yes: Agitated Labs: CBC, BMP 08/09/16 05:35 08/09/16 05:35 Discharge Summary Reason For Visit: FEVER Current Active Problems CHF (congestive heart failure) (Acute) Fever (Acute) H/O rupture of uterus (Acute) UTERINE INOPERABLE MASS Pleural effusion (Acute) Poor appetite (Acute) Poor nutrition (Acute) Rectovaginal fistula (Acute) Severe sepsis (Acute) Anxiety d/o Procedures: Principal: CT SCANS Other Procedures: PICC LINE FOR MALNUTRITION/GIVEN [facility]INIMIX Hospital Course: APPETITE IMPROVED , TOLERATED PO APPETITE, IV ABX COMPLETED, INOPERABLE UTERINE MASS WITH RECTOVAGINAL FISTULA, NOT A CANDIDATE FOR SURGERICAL REPAIR OR HYSTERECTOMY. PATIENT SENT TO SNF FOR PT, CONDITIONING, DISCUSSED WITH FAMILY, POOR OVERALL QUALITY OF LIFE. RETURN FOR REMOVAL OF UTERINE DRAIN WITH INTERVENTIONAL RADIOLOGY. Condition: Guarded - Instructions Diet, Activity, Other Instructions: PUREE DIET Referrals: Diallo Kirkland MD [Primary Care Provider] - Disposition: SNF FACILITY - Home Medications Comprehensive Discharge Medication List: Ambulatory Orders Digoxin [Lanoxin -] 0.125 mg PO DAILY tablet 01/16/15 Magnesium Oxide [Mag-Ox -] 400 mg PO BID tablet 01/16/15 Multivitamins [Multivit ([facility] Formulary)] 1 tab PO DAILY tab 01/16/15 Apixaban [Eliquis] 2.5 mg PO BID 05/28/16 Citalopram Hydrobromide [Celexa -] 10 mg PO DAILY 05/28/16 Clonidine HCl 0.1 mg PO BID 05/28/16 Rosuvastatin [Crestor -] 5 mg PO HS tablet 06/01/16 Acetaminophen [Tylenol .Regular Strength -] 650 mg PO Q6H PRN #0 tablet Albuterol 2.5/Ipratropium 0.5 [Duoneb -] 1 amp NEB Q6H PRN #0 amp 07/05/16 Amino Acids/Protein Hydrolys [Prosource No Carb Liquid Pkt] 30 ml PO BID@0800, 1730 packet 07/05/16 Ascorbic Acid [Vitamin C -] 500 mg PO DAILY tablet 07/05/16 Clonazepam [Klonopin -] 0.5 mg PO TID #90 tablet MDD 3 07/05/16 Ferrous Sulfate [Feosol] 325 mg PO DAILY@0800 ud 07/05/16 Folic Acid - 1 mg PO DAILY tablet 07/05/16 Guaifenesin Dm [Robitussin Dm -] 10 ml PO Q8H PRN #0 cup 07/05/16 Lactobacillus Acidophilus [Bacid -] 1 tab PO DAILY tab 07/05/16 Megestrol Acetate Oral Susp [Megace Oral Suspension -] 400 mg PO DAILY cup Metoprolol Tartrate [Lopressor -] 25 mg PO BID tablet 07/05/16 Metronidazole [Flagyl -] 500 mg PO TID tablet 07/05/16 Mirtazapine [Remeron -] 7.5 mg PO HS tablet 07/05/16 Multivitamins [Multivit ([facility] Formulary)] 1 tab PO DAILY tab 07/05/16 Naph,Mb-Db/K pH,Mbdb [PHOS-NaK PACKET -] 1 packet PO DAILY pow 07/05/16 Nystatin/Triamcinolone Top Cr [Mycolog II -] 1 applic TP BID applic 07/05/16 Acetaminophen [Tylenol .Regular Strength -] 325 mg PO Q6H PRN 07/14/16 Aspirin [ASA -] 81 mg PO DAILY 07/14/16 Docusate Sodium [Colace Oral Solution -] 300 mg PO HS 07/14/16 Aspirin [ASA -] 81 mg PO DAILY tab.chew 07/22/16 Clonazepam [Klonopin -] 0.5 mg PO TID tablet MDD 4 07/22/16 Digoxin [Lanoxin -] 0.125 mg PO Q2D tablet 07/22/16 Fat Emulsions [Intralipid -] 250 ml IV DAILY@2200 07/22/16 Lactobacillus Acidophilus [Bacid -] 1 tab PO DAILY tab 07/22/16
[2016-08-10 15:33] VITALS: BP 131/76; PULSE 98; TEMP 97.8
--- NOTE | 2016-09-03 13:59 | PN ---
Progress Note (short form) - Note Progress Note: ADDENDUM: PATIENT SUFFERS FROM UNSPECIFIED SEVERE PROTEIN MALNUTRITION IN THE SETTING OF WEIGHT LOSS INFECTION AND DECREASED APPETITE. PATIENT HAS ACUTE SYSTOLIC HEART FAILURE. 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
== END 2016-08-10 16:30 | DRG 871 ==
LOC: JER 19:06 → JERBED 20:55 → J5S 07-15 00:37 → J4S 07-29 02:23
PROVIDERS: ADMIT Family Medicine; ATTEND Family Medicine
PROC: 02HV33Z Insertion of Infusion Device into Superior Vena Cava, Percutaneous Approach (ICD-10-PCS; 2016-07-26)
PROC: B518YZA Fluoroscopy of Superior Vena Cava using Other Contrast, Guidance (ICD-10-PCS; 2016-07-26)
PROC: 30233N1 Transfusion of Nonautologous Red Blood Cells into Peripheral Vein, Percutaneous Approach (ICD-10-PCS; principal; 2016-07-27)
DX: A41.9 Sepsis, unspecified organism (principal); E43 Unspecified severe protein-calorie malnutrition; I50.21 Acute systolic (congestive) heart failure; N82.3 Fistula of vagina to large intestine; J98.11 Atelectasis; I48.92 Unspecified atrial flutter; N39.0 Urinary tract infection, site not specified; E46 Unspecified protein-calorie malnutrition; Z68.1 Body mass index [BMI] 19.9 or less, adult; R64 Cachexia; R65.20 Severe sepsis without septic shock; D64.9 Anemia, unspecified; F41.9 Anxiety disorder, unspecified; N71.9 Inflammatory disease of uterus, unspecified; E78.5 Hyperlipidemia, unspecified; I48.91 Unspecified atrial fibrillation; R63.0 Anorexia; F03.90 Unspecified dementia, unspecified severity, without behavioral disturbance, psychotic disturbance, mood disturbance, and anxiety; D72.829 Elevated white blood cell count, unspecified; Z88.0 Allergy status to penicillin; E87.6 Hypokalemia; B95.2 Enterococcus as the cause of diseases classified elsewhere; N73.9 Female pelvic inflammatory disease, unspecified; I11.0 Hypertensive heart disease with heart failure
CPT/HCPCS: 36415; 36430; 36569; 71010-TC; 71275-TC; 72192-TC; 77001-TC; 80048; 80053; 80162; 81003; 81015; 82272; 82550; 82607; 82728; 82747; 83010; 83540; 83550; 83605; 83615; 83735; 84100; 84484; 85014; 85025; 85027; 85044; 85397; 85610; 85730; 86850; 86870; 86880; 86900; 86901; 86902; 86922; 87040; 87070; 87086; 87186; 87205; 93005; 93010; 97116-GP; 97161-GP; 99285-25; C1751; P9038; P9058

== ENCOUNTER 2016-08-17 01:56 | Observation (INO) | payer OTHER ==
--- NOTE | 2016-08-17 02:20 | PDOC ---
History of Present Illness - General History Source: Patient Exam Limitations: No Limitations - History of Present Illness Initial Comments: 08/17/16 02:35 The patient is a 81 year old female with significant past medical history of dementia, a-fib, hypertension, hyperlipidemia, and recent perforated intestine s /p exploratory laparotomy (06/15/16) who presents to the ED BIBA sent from [place] after her arian mead came out. At time of evaluation, patient has no complaints. The patient denies fever, chills, cough, SOB, chest pain, and palpitations. The patient denies abdominal pain, nausea, vomiting, and diarrhea. Allergies: penicillin Social History: No alcohol, tobacco, or drug use reported. Past Surgical History: s/p mastectomy; s/p exploratory laparotomy (06/15/16) PCP: Dr. Vanessa Oneal <Kalyn Richards - Last Filed: 08/17/16 05:57> - General History Source: Patient, [facility] <Reji Laguna - Last Filed: 08/18/16 19:28> - General Chief Complaint: Wound Stated Complaint: WOUND PROBLEM Time Seen by Provider: 08/17/16 02:20 Past History <Kalyn Richards - Last Filed: 08/17/16 05:57> - Past Medical History Cancer: Yes (rt) Cardiac Disorders: Yes GI Disorders: Yes (sbo) Disorders: Yes (RECURRENT UTI) HTN: Yes Hypercholesterolemia: Yes Psychiatric Problems: Yes (anxiety) - Surgical History Abdominal Surgery: Yes (Jun 2016) GI Surgery: Yes (resection) - Immunization History Immunization Up to Date: Yes - Psycho/Social/Smoking Cessation Hx Anxiety: No Suicidal Ideation: No Smoking History: Unknown if ever smoked Have you smoked in the past 12 months: No If you are a former smoker, when did you quit?: 1984 Hx Alcohol Use: No Drug/Substance Use Hx: No Substance Use Type: None Hx Substance Use Treatment: No <Reji Laguna - Last Filed: 08/18/16 19:28> - Past Medical History Allergies/Adverse Reactions: Allergies Allergy/AdvReac Type Severity Reaction Status Date / Time Penicillins Allergy Verified 08/17/16 02:00 Home Medications: Ambulatory Orders Albuterol 2.5/Ipratropium 0.5 [Duoneb -] 1 neb IH QID PRN 08/17/16 Apixaban [Eliquis] 2.5 mg PO BID 08/17/16 Ascorbic Acid [Vitamin C -] 500 mg PO DAILY 08/17/16 Aspirin [ASA -] 81 mg PO DAILY 08/17/16 Citalopram Hydrobromide [Citalopram HBr] 10 mg PO DAILY 08/17/16 Clonazepam [KlonoPIN] 0.5 mg PO TID 08/17/16 Clonidine HCl 0.1 mg PO BID 08/17/16 Clotrimazole [Clotrimazole AF] 28 gm TP BID 08/17/16 Digoxin [Lanoxin -] 0.125 mg PO ASDIR 08/17/16 Docusate Sodium [Colace -] 100 mg PO TID 08/17/16 Ferrous Sulfate [Feosol] 325 mg PO DAILY 08/17/16 Folic Acid 1 mg PO DAILY 08/17/16 Lactobacillus Acidophilus [Acidophilus Lactobacilli] 1 each PO DAILY 08/17/16 Magnesium Oxide [Mag-Ox -] 400 mg PO DAILY 08/17/16 Megestrol Acetate Oral Susp [Megace Oral Suspension -] 400 mg PO DAILY 08/17/16 Metoprolol Tartrate [Lopressor -] 25 mg PO BID 08/17/16 Metronidazole [Flagyl -] 500 mg PO TID 08/17/16 Mirtazapine 7.5 mg PO DAILY 08/17/16 Multivit-Min/Iron Fum/Folic AC [Nahid-Jmzsaqo-Rbtwawme Tablet] 1 each PO DAILY 08/17/16 Naph,Mb-Db/K pH,Mbdb [PHOS-NaK PACKET -] 1 packet PO DAILY 08/17/16 Nystatin Powder [Nystop Topical Powder -] 15 gm TP BID 08/17/16 Rosuvastatin Calcium [Crestor] 5 mg PO HS 08/17/16 Review of Systems - Review of Systems Able to Perform ROS?: Yes Comments:: 08/17/16 02:35 CONSTITUTIONAL: Absent: fever, no chills, no fatigue EYES: Absent: visual changes ENT: Absent: ear pain, no sore throat CARDIOVASCULAR: Absent: chest pain, no palpitations RESPIRATORY: Absent: cough, no SOB GI: Absent: abdominal pain, no nausea, no vomiting, no constipation, no diarrhea GENITOURINARY: Absent: dysuria, no frequency, no hematuria MUSCULOSKELETAL: Absent: back pain, no arthralgia, no myalgia SKIN: Absent: rash NEURO: Absent: headache <Kalyn Richards - Last Filed: 08/17/16 05:57> *Physical Exam - Vital Signs Last Vital Signs Temp Pulse Resp BP Pulse Ox 98.4 F 74 22 90/56 93 L 08/17/16 02:00 08/17/16 02:00 08/17/16 02:00 08/17/16 02:00 08/17/16 02:00 - Physical Exam Comments: 08/17/16 02:35 GENERAL: Well developed, well nourished. Awake and alert. No acute distress. HEENT: Normocephalic, atraumatic. PERRLA, EOMI. No conjunctival pallor. Sclera are non- icteric. Moist mucous membranes. Oropharynx is clear. NECK: Supple. Full ROM. No JVD. Carotid pulses 2+ and symmetric, without bruits. No thyromegaly. No lymphadenopathy. CARDIOVASCULAR: Regular rate and rhythm. No murmurs, rubs, or gallops. PULMONARY: No evidence of respiratory distress. Lungs clear to auscultation bilaterally. No wheezing, rales or rhonchi. ABDOMINAL: Soft. Non-tender. Non-distended. Suprapubic wound, slight drainage visible, no erythema. MUSCULOSKELETAL Normal range of motion at all joints. No bony deformities or tenderness. No CVA tenderness. EXTREMITIES: No cyanosis. No clubbing. No edema. No calf tenderness. SKIN: Warm and dry. Normal capillary refill. No rashes. No jaundice. NEUROLOGICAL: Alert and awake. Cranial nerves 2-12 intact. Moving all extremities. No gross focal neurological deficits. <Kalyn Richards - Last Filed: 08/17/16 05:57> - Vital Signs Last Vital Signs Temp Pulse Resp BP Pulse Ox 98.4 F 74 22 90/56 93 L 08/17/16 02:00 08/17/16 02:00 08/17/16 02:00 08/17/16 02:00 08/17/16 02:00 <Reji Laguna - Last Filed: 08/18/16 19:28> Heart Score/ECG Review - ECG Impressions Comment:: 08/17/16 02:59 NSR @73bpm Possible anterior infarct, age undetermined Abnormal ECG <Kalyn Richards - Last Filed: 08/17/16 05:57> ED Treatment Course - LABORATORY CBC & Chemistry Diagram: 08/17/16 02:42 08/17/16 02:42 <Kalyn Richards - Last Filed: 08/17/16 05:57> - LABORATORY CBC & Chemistry Diagram: 08/18/16 08:00 08/18/16 08:00 <Reji Laguna - Last Filed: 08/18/16 19:28> Medical Decision Making - Medical Decision Making 08/17/16 05:[address] Janes Mcginnis covering for Dr. Vanessa Oneal (via answering service) at 5:51 Awaiting call back 08/17/16 05:56 Patient's case discussed with Dr. Mcginnis at 5:56 <Kalyn Richards - Last Filed: 08/17/16 05:57> - Medical Decision Making 08/18/16 19:28 Dr. Laguna: The scribe's documentation has been prepared under my direction and personally reviewed by me in its entirery. I confirm that the note above accurately reflects all work, treatment, procedures, and medical decision making performed by me. <Reji Laguna - Last Filed: 08/18/16 19:28> *DC/Admit/Observation/Transfer - Attestations Scribe Attestion: 08/17/16 02:36 Documentation prepared by Kalyn Richards, acting as electromedical service engineer for Reji Laguna MD <Kalyn Richards - Last Filed: 08/17/16 05:57> - Discharge Dispostion Admit: Yes <Reji Laguna - Last Filed: 08/18/16 19:28> Diagnosis at time of Disposition: Arian mead drain site pain - Discharge Dispostion Disposition: [facility]CH TO [facility] - Referrals
[2016-08-17 03:17] LABS: BASOPHIL 0.4 % (0-2.0); EOSINOPHIL 1.7 % (0-4.5); MCH 27.5 pg (25.7-33.7); MEAN CELL VOLUME 86.1 fl (80-96); MEAN PLT VOLUME 8.2 fl (7.5-11.1); NEUTROPHILS 74.7 % (42.8-82.8); PLATELET COUNT 305 K/MM3 (134-434); RDW 17.4 % (11.6-15.6)
[2016-08-17 03:30] LABS: INR 2.09 (0.82-1.09); PROTHROMBIN TIME (PATIENT) 23.3 SEC (9.98-11.88)
[2016-08-17 03:39] LABS: ALBUMIN 2.2 g/dl (3.4-5.0); ALK PHOS 53 U/L (45-117); ANION GAP 10 (8-16); BILIRUBIN,TOTAL 0.3 mg/dL (0.2-1.0); CALCIUM 8.4 mg/dL (8.5-10.1); CO2 28 mmol/L (21-32); CREATININE 0.8 mg/dL (0.55-1.02); GLUCOSE,RANDOM 93 mg/dL (74-106); SGOT/AST 11 U/L (15-37); SGPT/ALT 8 U/L (12-78)
[2016-08-17] MEDS ORDERED: ALBUTEROL SO4 2.5/IPRATROPIUM 0.5 INH SOL 3 ML VIAL.NEB. NEB PRN (07:10)
[2016-08-17] MEDS ORDERED: MIRTAZAPINE 15 MG TABLET (FP) PO SCH (10:00)
[2016-08-17] MEDS ORDERED: MEGESTROL ACETATE 400 MG/10 ML UNIT DOSE CUP PO SCH (10:00)
[2016-08-17] MEDS: DEXTROSE 5%-0.45% SALINE 1,000 ML IV SCH ×2 (10:51→23:34)
--- NOTE | 2016-08-17 12:07 | EKG ---
Test Reason : Blood Pressure : / mmHG Vent. Rate : 073 BPM Atrial Rate : 073 BPM P-R Int : 140 ms QRS Dur : 074 ms QT Int : 372 ms P-R-T Axes : 044 067 077 degrees QTc Int : 409 ms POOR DATA QUALITY, INTERPRETATION MAY BE ADVERSELY AFFECTED NORMAL SINUS RHYTHM POSSIBLE ANTERIOR INFARCT (CITED ON OR BEFORE 14-JUL-2016) ABNORMAL ECG WHEN COMPARED WITH ECG OF 14-JUL-2016 20:31, PREMATURE VENTRICULAR COMPLEXES ARE NO LONGER PRESENT Confirmed by ARSALAN AVERY, TRENT ([id number]) on 08/17/2016 12:07:26 PM Referred By: Confirmed By:TRENT ARRIAZA MD
[2016-08-17] MEDS ORDERED: DIGOXIN 0.125 MG TABLET (FP) ONE (12:35)
[2016-08-17] MEDS ORDERED: ASPIRIN 81 MG CHEWABLE TABLETS ONE (12:35)
[2016-08-17] MEDS ORDERED: FOLIC ACID 1 MG TABLET (FP) ONE (12:36)
[2016-08-17] MEDS ORDERED: CITALOPRAM HYDROBROMIDE 10 MG TABLET (FP) ONE (12:36)
[2016-08-17] MEDS ORDERED: METOPROLOL TARTRATE 25 MG TABLET (FP) ONE (12:36)
[2016-08-17] MEDS ORDERED: MAGNESIUM OXIDE 400 MG TABLET (FP) ONE (12:36)
[2016-08-17] MEDS ORDERED: cloNIDine HCL 0.1 MG TABLET ONE (12:36)
--- NOTE | 2016-08-17 12:36 | CONSULT ---
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 Cardio/Vascular: Yes: AFIB, HTN, Hyperlipdemia Gastrointestinal: Yes: Other (PERITONITIS, RUPTURED INFECTED UTERUS) Renal/: Yes: UTI (hx of ) Psych: Yes: Anxiety Musculoskeletal: Yes: Osteoarthritis - Past Surgical History Past Surgical History: Yes: Mastectomy (Right- for Cancer) - Alcohol/Substance Use Hx Alcohol Use: No - Smoking History Smoking history: Unknown if ever smoked Have you smoked in the past 12 months: No If you are a former smoker, when did you quit?: 1984 - Social History Usual Living Arrangement: Assisted Living Home Medications - Allergies Allergies/Adverse Reactions: Allergies Allergy/AdvReac Type Severity Reaction Status Date / Time Penicillins Allergy Verified 08/17/16 02:00 - Home Medications Home Medications: Ambulatory Orders Albuterol 2.5/Ipratropium 0.5 [Duoneb -] 1 neb IH QID PRN 08/17/16 Apixaban [Eliquis] 2.5 mg PO BID 08/17/16 Ascorbic Acid [Vitamin C -] 500 mg PO DAILY 08/17/16 Aspirin [ASA -] 81 mg PO DAILY 08/17/16 Citalopram Hydrobromide [Citalopram HBr] 10 mg PO DAILY 08/17/16 Clonazepam [KlonoPIN] 0.5 mg PO TID 08/17/16 Clonidine HCl 0.1 mg PO BID 08/17/16 Clotrimazole [Clotrimazole AF] 28 gm TP BID 08/17/16 Digoxin [Lanoxin -] 0.125 mg PO ASDIR 08/17/16 Docusate Sodium [Colace -] 100 mg PO TID 08/17/16 Ferrous Sulfate [Feosol] 325 mg PO DAILY 08/17/16 Folic Acid 1 mg PO DAILY 08/17/16 Lactobacillus Acidophilus [Acidophilus Lactobacilli] 1 each PO DAILY 08/17/16 Magnesium Oxide [Mag-Ox -] 400 mg PO DAILY 08/17/16 Megestrol Acetate Oral Susp [Megace Oral Suspension -] 400 mg PO DAILY 08/17/16 Metoprolol Tartrate [Lopressor -] 25 mg PO BID 08/17/16 Metronidazole [Flagyl -] 500 mg PO TID 08/17/16 Mirtazapine 7.5 mg PO DAILY 08/17/16 Multivit-Min/Iron Fum/Folic AC [Mzxnu-Zvwjjdp-Acsuozqz Tablet] 1 each PO DAILY 08/17/16 Naph,Mb-Db/K pH,Mbdb [PHOS-NaK PACKET -] 1 packet PO DAILY 08/17/16 Nystatin Powder [Nystop Topical Powder -] 15 gm TP BID 08/17/16 Rosuvastatin Calcium [Crestor] 5 mg PO HS 08/17/16 Family Disease History - Family Disease History Family History: Unable to Obtain Review of Systems Unable to obtain ROS, reason: Poor historian Physical Exam Vital Signs: Vital Signs Temperature 98.4 F 08/17/16 02:00 Pulse Rate 75 08/17/16 08:00 Respiratory Rate 20 08/17/16 08:00 Blood Pressure 108/58 08/17/16 08:00 O2 Sat by Pulse Oximetry (%) 93 L 08/17/16 02:00 Constitutional: Yes: Calm Cardiovascular: Yes: WNL Respiratory: Yes: Regular Gastrointestinal: Yes: Soft, Other (Purulent drainage from prior JES site). No: Distention, Tenderness, Tenderness, Rebound Labs: CBC, BMP 08/17/16 02:42 08/17/16 02:42 Problem List - Problems (1) Arian mead drain site pain Code(s): G89.18 - OTHER ACUTE POSTPROCEDURAL PAIN Assessment/Plan 81 female with history of perforated uterus seen intraaop Now with pain at purulent drainage from prior IR placed JES site Antibiotics ID evaluation Possible imaging to see if IR needs to replace drain if has persistent collection No general surgical intervention
[2016-08-17] MEDS ORDERED: MIRTAZAPINE 15 MG TABLET (FP) ONE ×2 (12:37)
[2016-08-17] MEDS ORDERED: FERROUS SO4 325 MG TABLET (FP) ONE (12:37)
[2016-08-17] MEDS: cloNIDine HCL 0.1 MG TABLET PO SCH ×2 (12:41→23:35)
[2016-08-17] MEDS: ASPIRIN 81 MG CHEWABLE TABLETS PO SCH (12:41)
[2016-08-17] MEDS: CITALOPRAM HYDROBROMIDE 10 MG TABLET (FP) PO SCH (12:41)
[2016-08-17] MEDS: DIGOXIN 0.125 MG TABLET (FP) PO SCH (12:42)
[2016-08-17] MEDS: MAGNESIUM OXIDE 400 MG TABLET (FP) PO SCH (12:42)
[2016-08-17] MEDS: METOPROLOL TARTRATE 25 MG TABLET (FP) PO SCH ×2 (12:42→23:35)
[2016-08-17] MEDS: FERROUS SO4 325 MG TABLET (FP) PO SCH (12:42)
[2016-08-17] MEDS: FOLIC ACID 1 MG TABLET (FP) PO SCH (12:42)
[2016-08-17] MEDS: CLOTRIMAZOLE 1% CREAM 15 GM TUBE TP SCH ×2 (12:44→23:36)
[2016-08-17] MEDS: LACTOBACILLUS ACIDOPHILUS 1 EACH TAB (FP) PO SCH (12:44)
[2016-08-17] MEDS: APIXABAN 2.5 MG TABLET PO SCH ×2 (12:44→23:35)
[2016-08-17] MEDS: NAPH,MB-DB/K PH,MBDB POWDER PACKET PO SCH (12:45)
[2016-08-17] MEDS: ASCORBIC ACID 500 MG TABLET (FP) PO SCH (12:45)
[2016-08-17] MEDS: NYSTATIN POWDER 100,000 UNITS/GM - 15 GM TOPICAL POWDER TP SCH ×2 (12:45→23:36)
[2016-08-17] MEDS: MULTIVITAMINS (DAILY MVI) TABLET (FP) PO SCH (12:45)
[2016-08-17] MEDS ORDERED: metroNIDAZOLE 500 MG TABLET PO SCH (14:00)
--- NOTE | 2016-08-17 15:03 | PN ---
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
[2016-08-17] MEDS ORDERED: metroNIDAZOLE 250 MG TABLET PO SCH (15:28)
[2016-08-17] MEDS: DOCUSATE SODIUM 100 MG CAPSULE (FP) PO SCH ×2 (15:32→23:34)
[2016-08-17] MEDS: clonazePAM 0.5 MG TABLET PO SCH ×2 (15:32→23:35)
[2016-08-17] MEDS: metroNIDAZOLE 250 MG TABLET PO SCH ×2 (15:43→23:35)
--- NOTE | 2016-08-17 16:20 | CONS ---
INFECTIOUS DISEASE CONSULTATION DATE OF CONSULTATION: DATE OF DICTATION: 08/17/2016 REQUESTED BY: Janes Mcginnis MD DICTATED BY: Shayy Jaquez MD HISTORY OF PRESENT ILLNESS: This is an 81-year-old woman. She had been hospitalized twice recently, June 15 to July 06 and again July 14 to August 10. She in June underwent an exploratory laparoscopy on June 15 at which time she was found to have a ruptured uterus and a pelvic abscess. After the laparoscopic procedure, she was noted to have a persistent pelvic abscess. She underwent a percutaneous drainage, then [facility]. She then returned on July 14 with abdominal pain and fever. She was treated again for abscess. Her cultures were negative. She was discharged back on August 10 to the prison with plans to have her follow up with IR. She now returns to the hospital overnight on August 16 because the drainage tube fell out. There is no history of any fevers. She is awake but confused, and she has no complaints. PAST MEDICAL HISTORY: Her past medical history is notable for the pelvic abscess. She has a history of breast cancer, atrial fibrillation, hypertension, hyperlipidemia and dementia. ALLERGIES: She is allergic to PENICILLIN, but she tolerates cephalosporins. SOCIAL HISTORY: [facility] a [facility]), and is a former smoker. MEDICATIONS AT THE ASSISTED: Her medications at the prison include rifaximin, ascorbic acid, aspirin, Celexa, clonazepam, clonidine, clotrimazole cream, digoxin, docusate, DuoNeb, ferrous sulfate, folic acid, cough syrup, lacto bacillus, magnesium oxide, metoprolol, metronidazole, mirtazapine, multivitamins and Crestor. REVIEW OF SYSTEMS: She has no complaints. PHYSICAL EXAM: General: She is awake and alert. She is presently confused. Vital signs: Temperature 98.4. Pulse is 74. Her blood pressure is 108/58. Respiratory rate is 20. She weighs 103 pounds. HEENT exam: She is normocephalic. Her eyes are anicteric. He neck is supple. Lungs: Clear to auscultation. Heart: Regular rate and rhythm. Abdomen: Soft, nontender. She has no drainage or erythema at the site of where the tube was. Extremities: Without edema. LABS: Her labs are notable for a white count of 12,000. Hemoglobin 9.4. Platelets are 305. INR is 2. BUN and creatinine are 25 and 0.8. Blood cultures have been sent, and chest x-ray is negative for infiltrate. SUMMARY: In summary, this is a 81-year-old woman with known pelvic collection who has now between June 15 and now received multiple antibiotics. She has had multiple drains. PLAN: 1. I would suggest we repeat her imaging and further drainage as needed per IR. If, indeed, she has a persistent collection, would observe her off antibiotics at this time. 2. Would defer ordering the CAT scan through her primary care physician and GI. 3. Further recommendations to follow. [place] GORMAN/[id number] MTDD
[2016-08-17 18:58] VITALS: BMI 15.4
--- NOTE | 2016-08-17 20:34 | CON.GI ---
Consult Consult Specialty:: GASTROENTEROLOGY Reason for Consultation:: PELVIC ABSCESS COLLECTION - History of Present Illness Chief Complaint: PELVIC INFECTION History of Present Illness: 81 YEAR OLD FEMALE WITH HISTORY OF RUPTURED UTERUS (POSSIBLE MALIGNANCY AND RECTOVAGINAL FISTULA ADMITTED PELVIC JES TUBE WAS DISLODGED. THERE ARE NO SURGICAL OPTIONS FOR THIS PATIENT AND THE PLAN WAS TO CONTINUE TO DRAIN THE FLUID COLLECTION AND CONTINUE ANTIBIOTIC THERAPY. PATIENT IS CONFUSED AND HISTORY IS FROM STAFF AND MEDICAL RECORD. SHE HAS NO ABDOMINAL PAIN AND NO FEVER. SHE IS CURRENTLY AWAITING CT SCAN. 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 - Alcohol/Substance Use Hx Alcohol Use: No - Smoking History Smoking history: Unknown if ever smoked Have you smoked in the past 12 months: No If you are a former smoker, when did you quit?: 1984 - Social History Usual Living Arrangement: Assisted Living Home Medications - Allergies Allergies/Adverse Reactions: Allergies Allergy/AdvReac Type Severity Reaction Status Date / Time Penicillins Allergy Verified 08/17/16 02:00 - Home Medications Home Medications: Ambulatory Orders Albuterol 2.5/Ipratropium 0.5 [Duoneb -] 1 neb IH QID PRN 08/17/16 Apixaban [Eliquis] 2.5 mg PO BID 08/17/16 Ascorbic Acid [Vitamin C -] 500 mg PO DAILY 08/17/16 Aspirin [ASA -] 81 mg PO DAILY 08/17/16 Citalopram Hydrobromide [Citalopram HBr] 10 mg PO DAILY 08/17/16 Clonazepam [KlonoPIN] 0.5 mg PO TID 08/17/16 Clonidine HCl 0.1 mg PO BID 08/17/16 Clotrimazole [Clotrimazole AF] 28 gm TP BID 08/17/16 Digoxin [Lanoxin -] 0.125 mg PO ASDIR 08/17/16 Docusate Sodium [Colace -] 100 mg PO TID 08/17/16 Ferrous Sulfate [Feosol] 325 mg PO DAILY 08/17/16 Folic Acid 1 mg PO DAILY 08/17/16 Lactobacillus Acidophilus [Acidophilus Lactobacilli] 1 each PO DAILY 08/17/16 Magnesium Oxide [Mag-Ox -] 400 mg PO DAILY 08/17/16 Megestrol Acetate Oral Susp [Megace Oral Suspension -] 400 mg PO DAILY 08/17/16 Metoprolol Tartrate [Lopressor -] 25 mg PO BID 08/17/16 Metronidazole [Flagyl -] 500 mg PO TID 08/17/16 Mirtazapine 7.5 mg PO DAILY 08/17/16 Multivit-Min/Iron Fum/Folic AC [Glboe-Fobwzgx-Wysgtfow Tablet] 1 each PO DAILY 08/17/16 Naph,Mb-Db/K pH,Mbdb [PHOS-NaK PACKET -] 1 packet PO DAILY 08/17/16 Nystatin Powder [Nystop Topical Powder -] 15 gm TP BID 08/17/16 Rosuvastatin Calcium [Crestor] 5 mg PO HS 08/17/16 Review of Systems Unable to obtain ROS, reason: DEMENTIA Physical Exam-GI Vital Signs: Vital Signs Temperature 97.1 F L 08/17/16 05:54 Pulse Rate 75 08/17/16 08:00 Respiratory Rate 20 08/17/16 08:00 Blood Pressure 108/58 08/17/16 08:00 O2 Sat by Pulse Oximetry (%) 96 08/17/16 05:54 Constitutional: Yes: Pallor Eyes: Yes: Conjunctiva Clear HENT: Yes: Normocephalic Cardiovascular: Yes: Regular Rate and Rhythm Respiratory: Yes: Regular Gastrointestinal Inspection: Yes: WNL, Distention ...Auscultate: Yes: Normoactive Bowel Sounds ...Palpate: Yes: Mass (LLQ MASS OLD DRAIN SITE CLEAN AND DRY) Extremities: Yes: WNL Psychiatric: Yes: Agitated, Other (CONFUSED) Labs: INR, PTT INR 2.09 (0.82-1.09) H 08/17/16 02:42 Imaging - Results Cat Scan: Pending Problem List - Problems (1) Pelvic abscess in female Code(s): N73.9 - FEMALE PELVIC INFLAMMATORY DISEASE, UNSPECIFIED (2) 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 IF THINKING OF REPLACING JES DRAIN WOULD NEED REPEAT CT SCAN. PER CONSULTATIONS PATIENT HAS VERY DIFFICULT PATHOLOGY TO TREAT. AWAIT RESULT OF CT SCAN TO SEE IF ANY FLUID/PUS REMAINS. PER ID TO REMAIN OFF ABX. Code(s): S37.69XA - OTHER INJURY OF UTERUS, INITIAL ENCOUNTER
[2016-08-17] MEDS ORDERED: ROSUVASTATIN CA 5 MG TABLET (FP) PO SCH (22:00)
--- NOTE | 2016-08-17 23:20 | HP ---
Admitting History and Physical - Primary Care Physician PCP: Vanessa Oneal - Admission Chief Complaint: LEUKOCYTOSIS. 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 Cardiovascular: Yes: AFIB, HTN, Hyperlipdemia Gastrointestinal: Yes: Other (PERITONITIS, RUPTURED INFECTED UTERUS) Renal/: Yes: UTI (hx of ) Heme/Onc: Yes: Anemia Psych: Yes: Anxiety Musculoskeletal: Yes: Osteoarthritis - Past Surgical History Past Surgical History: Yes: Mastectomy (Right- for Cancer) - Advance Directives Advance Directives: Yes: Living Will, Health Care Proxy - Smoking History Smoking history: Unknown if ever smoked Have you smoked in the past 12 months: No If you are a former smoker, when did you quit?: 1984 - Alcohol/Substance Use Hx Alcohol Use: No Home Medications - Allergies Allergies/Adverse Reactions: Allergies Allergy/AdvReac Type Severity Reaction Status Date / Time Penicillins Allergy Verified 08/17/16 02:00 - Home Medications Home Medications: Ambulatory Orders Albuterol 2.5/Ipratropium 0.5 [Duoneb -] 1 neb IH QID PRN 08/17/16 Apixaban [Eliquis] 2.5 mg PO BID 08/17/16 Ascorbic Acid [Vitamin C -] 500 mg PO DAILY 08/17/16 Aspirin [ASA -] 81 mg PO DAILY 08/17/16 Citalopram Hydrobromide [Citalopram HBr] 10 mg PO DAILY 08/17/16 Clonazepam [KlonoPIN] 0.5 mg PO TID 08/17/16 Clonidine HCl 0.1 mg PO BID 08/17/16 Clotrimazole [Clotrimazole AF] 28 gm TP BID 08/17/16 Digoxin [Lanoxin -] 0.125 mg PO ASDIR 08/17/16 Docusate Sodium [Colace -] 100 mg PO TID 08/17/16 Ferrous Sulfate [Feosol] 325 mg PO DAILY 08/17/16 Folic Acid 1 mg PO DAILY 08/17/16 Lactobacillus Acidophilus [Acidophilus Lactobacilli] 1 each PO DAILY 08/17/16 Magnesium Oxide [Mag-Ox -] 400 mg PO DAILY 08/17/16 Megestrol Acetate Oral Susp [Megace Oral Suspension -] 400 mg PO DAILY 08/17/16 Metoprolol Tartrate [Lopressor -] 25 mg PO BID 08/17/16 Metronidazole [Flagyl -] 500 mg PO TID 08/17/16 Mirtazapine 7.5 mg PO DAILY 08/17/16 Multivit-Min/Iron Fum/Folic AC [Uegyt-Bnymfdm-Wqkzopno Tablet] 1 each PO DAILY 08/17/16 Naph,Mb-Db/K pH,Mbdb [PHOS-NaK PACKET -] 1 packet PO DAILY 08/17/16 Nystatin Powder [Nystop Topical Powder -] 15 gm TP BID 08/17/16 Rosuvastatin Calcium [Crestor] 5 mg PO HS 08/17/16 Review of Systems Findings/Remarks: POOR HISTORIAN ASKING WHY BACK AT HOSPITAL Physical Examination Vital Signs: Vital Signs Temperature 97.1 F L 08/17/16 05:54 Pulse Rate 75 08/17/16 08:00 Respiratory Rate 20 08/17/16 08:00 Blood Pressure 108/58 08/17/16 08:00 O2 Sat by Pulse Oximetry (%) 96 08/17/16 05:54 Neck: Yes: WNL Cardiovascular: Yes: WNL Respiratory: Yes: WNL Gastrointestinal: Yes: WNL. No: Tenderness Edema: No Imaging - Results Chest X-ray: Report Reviewed ([id number] ) Problem List - Problems (1) Arian mead drain site pain Code(s): G89.18 - OTHER ACUTE POSTPROCEDURAL PAIN (2) Afib Code(s): I48.91 - UNSPECIFIED ATRIAL FIBRILLATION (3) Anxiety and depression Code(s): F41.9 - ANXIETY DISORDER, UNSPECIFIED F32.9 - MAJOR DEPRESSIVE DISORDER, SINGLE EPISODE, UNSPECIFIED (4) Leukocytosis Code(s): D72.829 - ELEVATED WHITE BLOOD CELL COUNT, UNSPECIFIED Assessment/Plan The patient is a 81 year old female with significant past medical history of dementia, a-fib, hypertension, hyperlipidemia, and recent perforated intestine s /p exploratory laparotomy (06/15/16) who presents to the ED BIBA sent from [facility] after her arian mead came out. At time of evaluation, patient has no complaints. The patient denies fever, chills, cough, SOB, chest pain, and palpitations. The patient denies abdominal pain, nausea, vomiting, and diarrhea. Allergies: penicillin Social History: No alcohol, tobacco, or drug use reported. Past Surgical History: s/p mastectomy; s/p exploratory laparotomy (06/15/16) PCP: Dr. Vanessa Oneal (1) Arian mead drain site pain Code(s): G89.18 - OTHER ACUTE POSTPROCEDURAL PAIN NO ABD PAIN F/U CTAP -> TO R/O ABSCESS APPRECIATE CONSULTS OBSERVE OFF ABx PLANNED JES REPLACEMENT IF CTAP OK WILL D/W FAMILY ABOUT EXPECTATIONS (2) Afib Code(s): I48.91 - UNSPECIFIED ATRIAL FIBRILLATION NOAC (3) Anxiety and depression Code(s): F41.9 - ANXIETY DISORDER, UNSPECIFIED F32.9 - MAJOR DEPRESSIVE DISORDER, SINGLE EPISODE, UNSPECIFIED SSRI BENZO (4) Leukocytosis Code(s): D72.829 - ELEVATED WHITE BLOOD CELL COUNT, UNSPECIFIED INTAKE ASSESSOR FM
[2016-08-18] MEDS: clonazePAM 0.5 MG TABLET PO SCH ×2 (06:33→14:39)
[2016-08-18] MEDS: metroNIDAZOLE 250 MG TABLET PO SCH ×2 (06:33→14:39)
[2016-08-18] MEDS: DOCUSATE SODIUM 100 MG CAPSULE (FP) PO SCH ×2 (06:33→14:39)
--- NOTE | 2016-08-18 06:37 | PN ---
Progress Note, Physician - Current Medication List Current Medications: Active Medications Albuterol/Ipratropium (Duoneb -) 1 amp NEB Q6H PRN PRN Reason: Dyspnea Apixaban (Eliquis -) 2.5 mg PO BID [facility] Last Admin: 08/17/16 23:35 Dose: Not Given Ascorbic Acid (Vitamin C -) 500 mg PO DAILY [facility] Last Admin: 08/17/16 12:45 Dose: Not Given Aspirin (Asa -) 81 mg PO DAILY [facility] Last Admin: 08/17/16 12:41 Dose: 81 mg Citalopram Hydrobromide (Celexa -) 10 mg PO DAILY [facility] Last Admin: 08/17/16 12:41 Dose: 10 mg Clonazepam (Klonopin -) 0.5 mg PO TID [facility] Last Admin: 08/18/16 06:33 Dose: Not Given Clonidine (Catapres -) 0.1 mg PO BID [facility] Last Admin: 08/17/16 23:35 Dose: Not Given Clotrimazole (Lotrimin 1% Cream -) 1 applic TP BID [facility] Last Admin: 08/17/16 23:36 Dose: Not Given Digoxin (Lanoxin -) 0.125 mg PO DAILY [facility] Last Admin: 08/17/16 12:42 Dose: 0.125 mg Docusate Sodium (Colace -) 100 mg PO TID [facility] Last Admin: 08/18/16 06:33 Dose: Not Given Ferrous Sulfate (Feosol -) 325 mg PO DAILY [facility] Last Admin: 08/17/16 12:42 Dose: 325 mg Folic Acid (Folic Acid -) 1 mg PO DAILY [facility] Last Admin: 08/17/16 12:42 Dose: 1 mg Dextrose/Sodium Chloride (D5-1/2ns -) 1,000 mls @ 75 mls/hr IV ASDIR [facility] Last Admin: 08/17/16 23:34 Dose: 75 mls/hr Lactobacillus Acidophilus (Bacid -) 1 tab PO DAILY [facility] Last Admin: 08/17/16 12:44 Dose: Not Given Magnesium Oxide (Mag-Ox -) 400 mg PO DAILY [facility] Last Admin: 08/17/16 12:42 Dose: 400 mg Megestrol Acetate (Megace Oral Suspension -) 400 mg PO DAILY [facility] Last Admin: 08/17/16 12:45 Dose: Not Given Metoprolol Tartrate (Lopressor -) 25 mg PO BID [facility] Last Admin: 08/17/16 23:35 Dose: Not Given Metronidazole (Flagyl -) 500 mg PO TID [facility] Last Admin: 08/18/16 06:33 Dose: Not Given Mirtazapine (Remeron -) 7.5 mg PO DAILY [facility] Last Admin: 08/17/16 12:42 Dose: 7.5 mg Multivitamins/Minerals/Vitamin C (Tab-A-Vit -) 1 tab PO DAILY [facility] Last Admin: 08/17/16 12:45 Dose: Not Given Nystatin (Nystop Powder -) 1 applic TP BID [facility] Last Admin: 08/17/16 23:36 Dose: Not Given Potassium Phos/Sodium Phos (Phos-Nak Packet -) 1 packet PO DAILY [facility] Last Admin: 08/17/16 12:45 Dose: Not Given Rosuvastatin Calcium (Crestor -) 5 mg PO HS [facility] Last Admin: 08/17/16 23:35 Dose: Not Given - Objective Vital Signs: Vital Signs Temperature 97.6 F 08/18/16 06:00 Pulse Rate 74 08/18/16 06:00 Respiratory Rate 18 08/18/16 06:00 Blood Pressure 127/66 08/18/16 06:00 O2 Sat by Pulse Oximetry (%) 97 08/17/16 22:00 Constitutional: Yes: Calm Neck: Yes: WNL Cardiovascular: Yes: WNL Respiratory: Yes: WNL Gastrointestinal: Yes: WNL Edema: No Labs: INR, PTT INR 2.09 (0.82-1.09) H 08/17/16 02:42 Problem List - Problems (1) Arian mead drain site pain Code(s): G89.18 - OTHER ACUTE POSTPROCEDURAL PAIN (2) Afib Code(s): I48.91 - UNSPECIFIED ATRIAL FIBRILLATION (3) Anxiety and depression Code(s): F41.9 - ANXIETY DISORDER, UNSPECIFIED F32.9 - MAJOR DEPRESSIVE DISORDER, SINGLE EPISODE, UNSPECIFIED (4) Leukocytosis Code(s): D72.829 - ELEVATED WHITE BLOOD CELL COUNT, UNSPECIFIED Assessment/Plan The patient is a 81 year old female with significant past medical history of dementia, a-fib, hypertension, hyperlipidemia, and recent perforated intestine s /p exploratory laparotomy (06/15/16) who presents to the ED BIBA sent from [place] after her arian mead came out. At time of evaluation, patient has no complaints. The patient denies fever, chills, cough, SOB, chest pain, and palpitations. The patient denies abdominal pain, nausea, vomiting, and diarrhea. Allergies: penicillin Social History: No alcohol, tobacco, or drug use reported. Past Surgical History: s/p mastectomy; s/p exploratory laparotomy (06/15/16) PCP: Dr. Vanessa Oneal (1) Arian mead drain site pain Code(s): G89.18 - OTHER ACUTE POSTPROCEDURAL PAIN NO ABD PAIN F/U CTAP -> TO R/O ABSCESS APPRECIATE CONSULTS OBSERVE OFF ABx PLANNED JES REPLACEMENT IF CTAP OK WILL D/W FAMILY ABOUT EXPECTATIONS (2) Afib Code(s): I48.91 - UNSPECIFIED ATRIAL FIBRILLATION NOAC (3) Anxiety and depression Code(s): F41.9 - ANXIETY DISORDER, UNSPECIFIED F32.9 - MAJOR DEPRESSIVE DISORDER, SINGLE EPISODE, UNSPECIFIED SSRI BENZO (4) Leukocytosis Code(s): D72.829 - ELEVATED WHITE BLOOD CELL COUNT, UNSPECIFIED DISCHARGE PLANNING AFTER LONG WAIT FINALLY HAS BED AT [facility] -> ON HOLD TEAM ON CASE TO FIX ABOVE & TRANSFER TO [facility] BEFORE LOSING BED [employer] [facility]
[2016-08-18 09:06] LABS: BASOPHIL 0.3 % (0-2.0); MCH 27.9 pg (25.7-33.7); MCHC 32.4 g/dl (32.0-36.0); MEAN CELL VOLUME 86.2 fl (80-96); MEAN PLT VOLUME 7.9 fl (7.5-11.1); NEUTROPHILS 75.5 % (42.8-82.8); PLATELET COUNT 298 K/MM3 (134-434); RDW 17.3 % (11.6-15.6); WHITE BLOOD COUNT 12.1 K/mm3 (4.0-10.0)
[2016-08-18 09:57] LABS: ALBUMIN 2.1 g/dl (3.4-5.0); ANION GAP 11 (8-16); CALCIUM 8.1 mg/dL (8.5-10.1); CO2 24 mmol/L (21-32); CREATININE 0.7 mg/dL (0.55-1.02); GLUCOSE,RANDOM 78 mg/dL (74-106); SGOT/AST 12 U/L (15-37); SGPT/ALT 8 U/L (12-78)
[2016-08-18 10:00] LABS: ALK PHOS 49 U/L (45-117); BILIRUBIN,TOTAL 0.3 mg/dL (0.2-1.0); TOT PROT 5.8 g/dl (6.4-8.2)
--- NOTE | 2016-08-18 10:14 | PN ---
Progress Note (short form) - Note Progress Note: No acute events CT shows persistent intraabdominal collection Vital Signs Period Temp Pulse Resp BP Sys/Palafox Pulse Ox Last 24 Hr 97.5 F-98.4 F 65-74 18-20 107-127/51-66 97 CBC, BMP 08/18/16 08:00 08/18/16 08:00 Interventional radiology for possible replacement of drain Antibiotics per ID No general surgery intervention Problem List - Problems (1) Arian mead drain site pain Code(s): G89.18 - OTHER ACUTE POSTPROCEDURAL PAIN
[2016-08-18] MEDS: DIGOXIN 0.125 MG TABLET (FP) PO SCH (10:45)
[2016-08-18] MEDS: NAPH,MB-DB/K PH,MBDB POWDER PACKET PO SCH (10:45)
[2016-08-18] MEDS: FERROUS SO4 325 MG TABLET (FP) PO SCH (12:12)
[2016-08-18] MEDS: MAGNESIUM OXIDE 400 MG TABLET (FP) PO SCH (12:12)
[2016-08-18] MEDS: METOPROLOL TARTRATE 25 MG TABLET (FP) PO SCH (12:12)
[2016-08-18] MEDS: LACTOBACILLUS ACIDOPHILUS 1 EACH TAB (FP) PO SCH (12:13)
[2016-08-18] MEDS: ASPIRIN 81 MG CHEWABLE TABLETS PO SCH (12:13)
[2016-08-18] MEDS: FOLIC ACID 1 MG TABLET (FP) PO SCH (12:13)
[2016-08-18] MEDS: cloNIDine HCL 0.1 MG TABLET PO SCH (12:13)
[2016-08-18] MEDS: ASCORBIC ACID 500 MG TABLET (FP) PO SCH (12:13)
[2016-08-18] MEDS: MULTIVITAMINS (DAILY MVI) TABLET (FP) PO SCH (12:39)
[2016-08-18] MEDS: CITALOPRAM HYDROBROMIDE 10 MG TABLET (FP) PO SCH (12:39)
[2016-08-18] MEDS: DEXTROSE 5%-0.45% SALINE 1,000 ML IV SCH (14:46)
[2016-08-18 15:27] VITALS: BP 109/51; PULSE 66; TEMP 97.9
--- NOTE | 2016-08-20 22:52 | DS ---
Physical Examination Vital Signs: Vital Signs Temperature 97.9 F 08/18/16 15:22 Pulse Rate 66 08/18/16 15:22 Respiratory Rate 18 08/18/16 15:22 Blood Pressure 109/51 08/18/16 15:22 O2 Sat by Pulse Oximetry (%) 95 08/18/16 07:00 Findings/Remarks: DISCHARGE NOTE FOR 08/18/16 Constitutional: Yes: Calm Neck: Yes: WNL Cardiovascular: Yes: WNL Respiratory: Yes: WNL Gastrointestinal: Yes: WNL Edema: No Labs: CBC, BMP 08/18/16 08:00 08/18/16 08:00 Discharge Summary Reason For Visit: ARIAN CAMARENA DRAIN SITE PAIN Hospital Course: DISCHARGE NOTE FOR 08/18/16 The patient is a 81 year old female with significant past medical history of dementia, a-fib, hypertension, hyperlipidemia, and recent perforated intestine s /p exploratory laparotomy (06/15/16) who presents to the ED BIBA sent from [place] after her arian camarena came out. At time of evaluation, patient has no complaints. The patient denies fever, chills, cough, SOB, chest pain, and palpitations. The patient denies abdominal pain, nausea, vomiting, and diarrhea. Allergies: penicillin Social History: No alcohol, tobacco, or drug use reported. Past Surgical History: s/p mastectomy; s/p exploratory laparotomy (06/15/16) PCP: Dr. Vanessa Oneal (1) Arian camarena drain site pain Code(s): G89.18 - OTHER ACUTE POSTPROCEDURAL PAIN NO ABD PAIN F/U CTAP -> TO R/O ABSCESS APPRECIATE CONSULTS CASE D/W GI NO SURGICAL INTERVENTION 2/2 HIGH RISK MEDICAL INTERVENTION (ABx/JES DRAIN) LITTLE BENEFIT [employer] STEWARD D/W FAMILY -> DO NOT WANT JES DRAIN/AGGRESSIVE INTERVENTION TRANSFER TO HOSPICE (2) Afib Code(s): I48.91 - UNSPECIFIED ATRIAL FIBRILLATION NOAC (3) Anxiety and depression Code(s): F41.9 - ANXIETY DISORDER, UNSPECIFIED F32.9 - MAJOR DEPRESSIVE DISORDER, SINGLE EPISODE, UNSPECIFIED SSRI BENZO (4) Leukocytosis Code(s): D72.829 - ELEVATED WHITE BLOOD CELL COUNT, UNSPECIFIED DISCHARGE PLANNING [facility] - Instructions Referrals: Diallo Kirkland MD [Primary Care Provider] - Disposition: DISCH TO [facility] - Home Medications Comprehensive Discharge Medication List: Ambulatory Orders Albuterol 2.5/Ipratropium 0.5 [Duoneb -] 1 neb IH QID PRN 08/17/16 Apixaban [Eliquis] 2.5 mg PO BID 08/17/16 Ascorbic Acid [Vitamin C -] 500 mg PO DAILY 08/17/16 Aspirin [ASA -] 81 mg PO DAILY 08/17/16 Citalopram Hydrobromide [Citalopram HBr] 10 mg PO DAILY 08/17/16 Clonazepam [KlonoPIN] 0.5 mg PO TID 08/17/16 Clonidine HCl 0.1 mg PO BID 08/17/16 Clotrimazole [Clotrimazole AF] 28 gm TP BID 08/17/16 Digoxin [Lanoxin -] 0.125 mg PO ASDIR 08/17/16 Docusate Sodium [Colace -] 100 mg PO TID 08/17/16 Ferrous Sulfate [Feosol] 325 mg PO DAILY 08/17/16 Folic Acid 1 mg PO DAILY 08/17/16 Lactobacillus Acidophilus [Acidophilus Lactobacilli] 1 each PO DAILY 08/17/16 Magnesium Oxide [Mag-Ox -] 400 mg PO DAILY 08/17/16 Megestrol Acetate Oral Susp [Megace Oral Suspension -] 400 mg PO DAILY 08/17/16 Metoprolol Tartrate [Lopressor -] 25 mg PO BID 08/17/16 Metronidazole [Flagyl -] 500 mg PO TID 08/17/16 Mirtazapine 7.5 mg PO DAILY 08/17/16 Multivit-Min/Iron Fum/Folic AC [Oazpr-Ehcimpm-Yxyjvswk Tablet] 1 each PO DAILY 08/17/16 Naph,Mb-Db/K pH,Mbdb [PHOS-NaK PACKET -] 1 packet PO DAILY 08/17/16 Nystatin Powder [Nystop Topical Powder -] 15 gm TP BID 08/17/16 Rosuvastatin Calcium [Crestor] 5 mg PO HS 08/17/16
--- NOTE | 2016-09-03 13:28 | PN ---
Progress Note (short form) - Note Progress Note: ADDENDUM: PATIENT SUFFERED FROM SEVERE PROTEIN CALORIE MALNUTRITION AND ACUTE HEART FAILURE SYSTOLIC TYPE
--- NOTE | 2016-09-03 13:31 | PN ---
Progress Note (short form) - Note Progress Note: ADDENDUM: UNSPECIFIED SEVERE PROTEIN MALNUTRITION IN THE SETTING OF WEIGHT LOSSINFECTION AND DECREASED APPETITE. ACUTE SYSTOLIC HEART FAILURE.
== END 2016-08-18 15:37 | disposition hospice, inpatient (51) ==
LOC: JER 01:56 → UNDOADMOB 05:54 → INTOOBSV 05:54 → JERBED 05:54 → J7W 14:00 → UNDODISOB 08-18 15:37
PROVIDERS: ADMIT Family Medicine; ATTEND Family Medicine
DX: G89.18 Other acute postprocedural pain (principal); T85.9XXA Unspecified complication of internal prosthetic device, implant and graft, initial encounter; Y83.8 Other surgical procedures as the cause of abnormal reaction of the patient, or of later complication, without mention of misadventure at the time of the procedure; I48.91 Unspecified atrial fibrillation; I10 Essential (primary) hypertension; E78.5 Hyperlipidemia, unspecified; D72.829 Elevated white blood cell count, unspecified; F41.9 Anxiety disorder, unspecified; F32.9 Major depressive disorder, single episode, unspecified; M19.90 Unspecified osteoarthritis, unspecified site; S37.69XA Other injury of uterus, initial encounter; Y92.89 Other specified places as the place of occurrence of the external cause; N73.9 Female pelvic inflammatory disease, unspecified; N82.3 Fistula of vagina to large intestine; Z87.440 Personal history of urinary (tract) infections; Z79.82 Long term (current) use of aspirin; Z85.3 Personal history of malignant neoplasm of breast; Z90.11 Acquired absence of right breast and nipple; Z79.01 Long term (current) use of anticoagulants
CPT/HCPCS: 36415; 71010-TC; 74176-TC; 80053; 83605; 85025; 85610; 86850; 86870; 86880; 86900; 86901; 86902; 87040; 93005; 93010; 99282-25; G0378

== ENCOUNTER 2020-11-11 22:19 | Inpatient (IN) | payer OTHER, MEDICARE ==
[2020-11-11 23:08] LABS: BASO % 0.4 % (0-2.0); EOS % 0.6 % (0-4.5); HEMATOCRIT 33.1 % (32.4-45.2); HEMOGLOBIN 10.9 GM/dL (10.7-15.3); LYMPH % 12.1 % (8-40); MCH 29.9 pg (25.7-33.7); MCHC 32.9 g/dl (32.0-36.0); MEAN CELL VOLUME 90.8 fl (80-96); MEAN PLT VOLUME 7.1 fl (7.5-11.1); MONO % 11.6 % (3.8-10.2); NEUT % 75.3 % (42.8-82.8); PLATELET COUNT 240 10^3/uL (134-434); RBC 3.65 M/mm3 (3.60-5.2); RDW 14.9 % (11.6-15.6); WHITE BLOOD COUNT 8.1 K/mm3 (4.0-10.0)
[2020-11-11 23:16] LABS: INR 1.51 (0.83-1.09); PROTHROMBIN TIME (PATIENT) 18.4 SEC (9.7-13.0)
[2020-11-11 23:18] LABS: ACTIVATED PTT 32.4 SECONDS (25.2-36.5)
[2020-11-11 23:27] LABS: CHLORIDE 106 mmol/L (98-107); SODIUM 140 mmol/L (136-145)
[2020-11-11 23:29] LABS: CALCIUM 8.5 mg/dL (8.5-10.1)
[2020-11-11 23:30] LABS: ANION GAP 8 MMOL/L (8-16); BLOOD UREA NITROGEN 26.7 mg/dL (7-18); CO2 27 mmol/L (21-32); GLUCOSE,RANDOM 116 mg/dL (74-106); MAGNESIUM 2.1 mg/dL (1.8-2.4)
[2020-11-11 23:33] LABS: CREATININE 2.1 mg/dL (0.55-1.3); PHOSPHOROUS 3.6 mg/dL (2.5-4.9); SGOT/AST 19 U/L (15-37); SGPT/ALT 21 U/L (13-61)
[2020-11-11 23:34] LABS: BILIRUBIN,TOTAL 0.4 mg/dL (0.2-1)
[2020-11-11 23:35] LABS: TOT PROT 6.9 g/dl (6.4-8.2)
[2020-11-11 23:36] LABS: ALK PHOS 53 U/L (45-117)
[2020-11-12] MEDS ORDERED: ACETAMINOPHEN INJECTION 100 ML IVPB ONE (01:09)
[2020-11-12] MEDS ORDERED: ACETAMINOPHEN 1000 MG/100 ML VIAL (NON FORMULARY) IVPB ONE (01:10)
[2020-11-12] MEDS ORDERED: morphine CARPU-JECT 2 MG/1 ML DISP.SYRIN IM ONE (03:28)
[2020-11-12] MEDS ORDERED: MORPHINE SULFATE 2 MG/ML VIAL ONE (03:31)
[2020-11-12 03:51] LABS: EPI CELLS 36 /uL (0-25.1); HYALINE CASTS 65 /uL (0-3.1); PH,URINE 6.5 (5.0-8.0); URINE APPEARANCE TURBID; URINE BACTERIA 114 /uL (0-1359); URINE BILIRUBIN NEGATIVE (NEGATIVE); URINE COLOR YELLOW; URINE GLUCOSE (UA) NEGATIVE (NEGATIVE); URINE KETONE NEGATIVE (NEGATIVE); URINE LEUK ESTERASE 3+ (NEGATIVE); URINE NITRITE NEGATIVE (NEGATIVE); URINE PROTEIN 3+ (NEGATIVE); URINE UROBILINOGEN 0.2 mg/dL (0.2-1.0); URINE WBC 25072 /uL (0-25.8)
[2020-11-12] MEDS ORDERED: CEFTRIAXONE 1 GM in DEXTROSE 5%-WATER - 100 ML IVPB ONE (04:49)
[2020-11-12] MEDS ORDERED: CEFTRIAXONE 1 GM/50 ML BAG ONE (04:50)
[2020-11-12 05:20] LABS: URINE RBC 907.3 /uL (0-23.9); YEAST NONE SEEN (NEGATIVE)
[2020-11-12] MEDS: DEXTROSE 5%-0.45% SALINE 1,000 ML IV SCH (05:43)
[2020-11-12] MEDS ORDERED: clonazePAM 0.5 MG ODT TABLETS SL PRN (07:41)
[2020-11-12] MEDS: MULTIVITAMINS (DAILY MVI) TABLET (FP) PO SCH (10:05)
[2020-11-12] MEDS: FOLIC ACID 1 MG TABLET (FP) PO SCH (10:05)
[2020-11-12] MEDS: CITALOPRAM HYDROBROMIDE 20 MG TABLET PO SCH (10:05)
[2020-11-12] MEDS ORDERED: METOPROLOL TARTRATE 25 MG TABLET (FP) ONE (12:59)
[2020-11-12] MEDS: METOPROLOL TARTRATE 25 MG TABLET (FP) PO SCH ×2 (13:00→21:09)
[2020-11-12 13:40] LABS: BASO % 0.4 % (0-2.0); EOS % 0.8 % (0-4.5); HEMATOCRIT 35.8 % (32.4-45.2); HEMOGLOBIN 11.3 GM/dL (10.7-15.3); LYMPH % 8.7 % (8-40); MCH 29.3 pg (25.7-33.7); MCHC 31.7 g/dl (32.0-36.0); MEAN CELL VOLUME 92.4 fl (80-96); MEAN PLT VOLUME 7.2 fl (7.5-11.1); MONO % 13.3 % (3.8-10.2); NEUT % 76.8 % (42.8-82.8); PLATELET COUNT 224 10^3/uL (134-434); RBC 3.87 M/mm3 (3.60-5.2); RDW 14.6 % (11.6-15.6); WHITE BLOOD COUNT 5.6 K/mm3 (4.0-10.0)
[2020-11-12 13:54] LABS: CHLORIDE 106 mmol/L (98-107); SODIUM 141 mmol/L (136-145)
[2020-11-12 13:56] LABS: CALCIUM 8.7 mg/dL (8.5-10.1)
[2020-11-12 13:57] LABS: ALBUMIN 2.9 g/dl (3.4-5.0); ANION GAP 7 MMOL/L (8-16); BLOOD UREA NITROGEN 22.6 mg/dL (7-18); CO2 27 mmol/L (21-32); GLUCOSE,RANDOM 108 mg/dL (74-106)
[2020-11-12 14:00] LABS: CHOLESTEROL 140 mg/dL (50-200); CREATININE 1.7 mg/dL (0.55-1.3); SGOT/AST 50 U/L (15-37); SGPT/ALT 55 U/L (13-61)
[2020-11-12 14:01] LABS: BILIRUBIN,TOTAL 0.6 mg/dL (0.2-1); LDL CHOLESTEROL (ONLY SJRH) 58 mg/dL (5-100); TOT PROT 6.9 g/dl (6.4-8.2); TRIGLYCERIDES 77 mg/dL (0-150)
[2020-11-12 14:02] LABS: ALK PHOS 58 U/L (45-117); HDL CHOLESTEROL 66 mg/dL (40-60)
[2020-11-12] MEDS: ATORVASTATIN CA 10 MG TABLET (FP) PO SCH (21:09)
[2020-11-13 08:35] LABS: ALBUMIN 2.8 g/dl (3.4-5.0); BLOOD UREA NITROGEN 22.1 mg/dL (7-18); CALCIUM 8.9 mg/dL (8.5-10.1)
[2020-11-13 08:39] LABS: CREATININE 1.8 mg/dL (0.55-1.3)
[2020-11-13 08:40] LABS: BILIRUBIN,TOTAL 0.5 mg/dL (0.2-1); TOT PROT 6.8 g/dl (6.4-8.2)
[2020-11-13] MEDS ORDERED: ACETAMINOPHEN 325 MG TABLET (FP) PO PRN (09:51)
[2020-11-13] MEDS ORDERED: cefTRIAXone SODIUM 1 GM VIAL ONE (10:03)
[2020-11-13] MEDS ORDERED: DEXTROSE 5%-WATER - 50 ML IVPB ONE (10:03)
[2020-11-13] MEDS: METOPROLOL TARTRATE 25 MG TABLET (FP) PO SCH ×2 (10:12→21:30)
[2020-11-13] MEDS: FOLIC ACID 1 MG TABLET (FP) PO SCH (10:12)
[2020-11-13] MEDS: CITALOPRAM HYDROBROMIDE 20 MG TABLET PO SCH (10:12)
[2020-11-13] MEDS: CEFTRIAXONE 1 GM in DEXTROSE 5%-WATER - 50 ML IVPB SCH (10:12)
[2020-11-13] MEDS: MULTIVITAMINS (DAILY MVI) TABLET (FP) PO SCH (10:12)
[2020-11-13] MEDS: DEXTROSE 5%-0.45% SALINE 1,000 ML IV SCH (15:16)
[2020-11-13] MEDS: SODIUM CHLORIDE 0.45% 1,000 ML IV SCH (18:34)
[2020-11-13] MEDS: ATORVASTATIN CA 10 MG TABLET (FP) PO SCH (21:30)
[2020-11-14 08:18] LABS: BASO % 0.8 % (0-2.0); EOS % 6.1 % (0-4.5); HEMATOCRIT 30.4 % (32.4-45.2); LYMPH % 14.7 % (8-40); MCH 29.9 pg (25.7-33.7); MEAN CELL VOLUME 90.6 fl (80-96); MEAN PLT VOLUME 7.9 fl (7.5-11.1); MONO % 15.8 % (3.8-10.2); NEUT % 62.6 % (42.8-82.8); PLATELET COUNT 215 10^3/uL (134-434); RBC 3.35 M/mm3 (3.60-5.2); RDW 14.4 % (11.6-15.6); WHITE BLOOD COUNT 5.7 K/mm3 (4.0-10.0)
[2020-11-14 08:45] LABS: CALCIUM 8.4 mg/dL (8.5-10.1)
[2020-11-14 08:46] LABS: ALBUMIN 2.4 g/dl (3.4-5.0); BLOOD UREA NITROGEN 24.8 mg/dL (7-18)
[2020-11-14 08:49] LABS: CREATININE 1.7 mg/dL (0.55-1.3)
[2020-11-14 08:50] LABS: BILIRUBIN,TOTAL 0.5 mg/dL (0.2-1)
[2020-11-14 09:55] LABS: ANISOCYTOSIS 0; MACROCYTOSIS 0; PLATELET ESTIMATE NORMAL
[2020-11-14] MEDS ORDERED: cefTRIAXone SODIUM 1 GM VIAL ONE (10:15)
[2020-11-14] MEDS ORDERED: DEXTROSE 5%-WATER - 50 ML IVPB ONE (10:16)
[2020-11-14] MEDS: MULTIVITAMINS (DAILY MVI) TABLET (FP) PO SCH (10:30)
[2020-11-14] MEDS: METOPROLOL TARTRATE 25 MG TABLET (FP) PO SCH ×2 (10:30→21:29)
[2020-11-14] MEDS: FOLIC ACID 1 MG TABLET (FP) PO SCH (10:30)
[2020-11-14] MEDS: CITALOPRAM HYDROBROMIDE 20 MG TABLET PO SCH (10:30)
[2020-11-14] MEDS: CEFTRIAXONE 1 GM in DEXTROSE 5%-WATER - 50 ML IVPB SCH (10:31)
[2020-11-14] MEDS: SODIUM CHLORIDE 0.45% 1,000 ML IV SCH (21:28)
[2020-11-14] MEDS: ATORVASTATIN CA 10 MG TABLET (FP) PO SCH (21:29)
[2020-11-14] MEDS ORDERED: clonazePAM 0.25 MG ODT TABLETS SL PRN (21:42)
[2020-11-15] MEDS ORDERED: ACETAMINOPHEN 1000 MG/100 ML VIAL (NON FORMULARY) IVPB ONE (07:26)
[2020-11-15] MEDS ORDERED: SUCCINYLCHOLINE CHLORIDE 200 MG/10 ML SYRINGE ONE (07:38)
[2020-11-15] MEDS ORDERED: PROPOFOL 20 ML ONE (07:39)
[2020-11-15] MEDS ORDERED: LIDOCAINE HCL/PF 2% SDV 5ML VIAL ONE (08:16)
[2020-11-15] MEDS ORDERED: KETAMINE HCL 200 MG/20 ML VIAL ONE (08:16)
[2020-11-15] MEDS ORDERED: DEXMEDETOMIDINE HCL 200 MCG/2 ML IVPB ONE (08:25)
[2020-11-15] MEDS ORDERED: cefTRIAXone SODIUM 1 GM VIAL IVPB ONE (09:14)
[2020-11-15] MEDS ORDERED: clonazePAM 0.25 MG ODT TABLETS SL PRN (11:24)
[2020-11-15] MEDS ORDERED: ONDANSETRON 4 MG/2 ML VIAL IVPUSH PRN (11:44)
[2020-11-15] MEDS ORDERED: LACTATED RINGERS SOLUTION 1,000 ML IV SCH (11:45)
[2020-11-15] MEDS: SODIUM CHLORIDE 0.45% 1,000 ML IV SCH ×3 (12:20→12:30)
[2020-11-15 15:45] LABS: BASO % 0.3 % (0-2.0); EOS % 2.5 % (0-4.5); HEMATOCRIT 29.6 % (32.4-45.2); HEMOGLOBIN 9.8 GM/dL (10.7-15.3); MCH 30.2 pg (25.7-33.7); MEAN CELL VOLUME 91.4 fl (80-96); MEAN PLT VOLUME 8.2 fl (7.5-11.1); MONO % 11.4 % (3.8-10.2); NEUT % 76.8 % (42.8-82.8); PLATELET COUNT 201 10^3/uL (134-434); RBC 3.24 M/mm3 (3.60-5.2); RDW 14.5 % (11.6-15.6); WHITE BLOOD COUNT 7.2 K/mm3 (4.0-10.0)
[2020-11-15] MEDS: ERTAPENEM SODIUM 0.5 GM in SODIUM CHLORIDE 50 ML IVPB SCH (16:02)
[2020-11-15] MEDS: DIGOXIN 62.5 MCG PO SCH ×2 (19:56→19:58)
[2020-11-15] MEDS: CITALOPRAM HYDROBROMIDE 20 MG TABLET PO SCH (19:56)
[2020-11-15] MEDS: MULTIVITAMINS (DAILY MVI) TABLET (FP) PO SCH (19:57)
[2020-11-15] MEDS: FOLIC ACID 1 MG TABLET (FP) PO SCH (19:57)
[2020-11-15] MEDS: METOPROLOL TARTRATE 25 MG TABLET (FP) PO SCH (19:57)
[2020-11-15] MEDS: CEFTRIAXONE 1 GM in DEXTROSE 5%-WATER - 50 ML IVPB SCH (19:57)
[2020-11-15] MEDS: ATORVASTATIN CA 10 MG TABLET (FP) PO SCH (21:19)
[2020-11-15] MEDS: ACETAMINOPHEN 325 MG TABLET (FP) PO PRN (21:20)
[2020-11-15] MEDS: APIXABAN 2.5 MG TABLET PO SCH (21:20)
[2020-11-15] MEDS ORDERED: METOPROLOL TARTRATE 25 MG TABLET (FP) PO SCH (22:00)
[2020-11-16] MEDS: SODIUM CHLORIDE 0.45% 1,000 ML IV SCH ×2 (02:58→13:55)
[2020-11-16 08:15] LABS: BASO % 0.4 % (0-2.0); EOS % 2.9 % (0-4.5); HEMATOCRIT 27.8 % (32.4-45.2); HEMOGLOBIN 9.2 GM/dL (10.7-15.3); MCH 30.2 pg (25.7-33.7); MEAN CELL VOLUME 91.6 fl (80-96); MEAN PLT VOLUME 7.9 fl (7.5-11.1); MONO % 14.6 % (3.8-10.2); NEUT % 76.1 % (42.8-82.8); PLATELET COUNT 205 10^3/uL (134-434); RBC 3.03 M/mm3 (3.60-5.2); RDW 14.1 % (11.6-15.6); WHITE BLOOD COUNT 7.4 K/mm3 (4.0-10.0)
[2020-11-16 08:38] LABS: ALBUMIN 2.1 g/dl (3.4-5.0)
[2020-11-16 08:40] LABS: BILIRUBIN,TOTAL 0.4 mg/dL (0.2-1); TOT PROT 5.1 g/dl (6.4-8.2)
[2020-11-16 08:41] LABS: CALCIUM 8.2 mg/dL (8.5-10.1)
[2020-11-16 08:45] LABS: CREATININE 1.5 mg/dL (0.55-1.3)
[2020-11-16] MEDS ORDERED: PT OWN MED DRAWER 7, Y5N ONE (09:32)
[2020-11-16] MEDS ORDERED: CEFTRIAXONE 1 GM in DEXTROSE 5%-WATER - 50 ML IVPB SCH (10:00)
[2020-11-16] MEDS: ERTAPENEM SODIUM 0.5 GM in SODIUM CHLORIDE 50 ML IVPB SCH (10:00)
[2020-11-16] MEDS ORDERED: DIGOXIN 0.125 MG TABLET (FP) PO SCH (10:00)
[2020-11-16] MEDS: MULTIVITAMINS (DAILY MVI) TABLET (FP) PO SCH (10:04)
[2020-11-16] MEDS: FOLIC ACID 1 MG TABLET (FP) PO SCH (10:04)
[2020-11-16] MEDS: CITALOPRAM HYDROBROMIDE 20 MG TABLET PO SCH (10:04)
[2020-11-16] MEDS: APIXABAN 2.5 MG TABLET PO SCH ×2 (10:04→22:40)
[2020-11-16] MEDS: METOPROLOL TARTRATE 25 MG TABLET (FP) PO SCH ×2 (10:05→22:40)
[2020-11-16] MEDS: ACETAMINOPHEN 325 MG TABLET (FP) PO PRN (17:37)
[2020-11-16] MEDS: ATORVASTATIN CA 10 MG TABLET (FP) PO SCH (22:42)
[2020-11-17] MEDS: APIXABAN 2.5 MG TABLET PO SCH ×2 (10:08→22:47)
[2020-11-17] MEDS: METOPROLOL TARTRATE 25 MG TABLET (FP) PO SCH ×2 (10:09→22:48)
[2020-11-17] MEDS: MULTIVITAMINS (DAILY MVI) TABLET (FP) PO SCH (10:09)
[2020-11-17] MEDS: CITALOPRAM HYDROBROMIDE 20 MG TABLET PO SCH (10:09)
[2020-11-17] MEDS: ERTAPENEM SODIUM 0.5 GM in SODIUM CHLORIDE 50 ML IVPB SCH (10:09)
[2020-11-17] MEDS: FOLIC ACID 1 MG TABLET (FP) PO SCH (10:09)
[2020-11-17] MEDS: SODIUM CHLORIDE 0.45% 1,000 ML IV SCH (13:27)
[2020-11-17] MEDS: DIGOXIN 0.125 MG TABLET (FP) PO SCH (13:36)
[2020-11-17] MEDS: ATORVASTATIN CA 10 MG TABLET (FP) PO SCH (22:48)
[2020-11-18 08:18] LABS: CALCIUM 8.6 mg/dL (8.5-10.1)
[2020-11-18 08:19] LABS: BLOOD UREA NITROGEN 20.8 mg/dL (7-18)
[2020-11-18 08:22] LABS: CREATININE 1.3 mg/dL (0.55-1.3)
[2020-11-18] MEDS ORDERED: PT OWN MED DRAWER 7, Y5N ONE (09:06)
[2020-11-18] MEDS: MULTIVITAMINS (DAILY MVI) TABLET (FP) PO SCH (09:18)
[2020-11-18] MEDS: METOPROLOL TARTRATE 25 MG TABLET (FP) PO SCH ×2 (09:19→21:15)
[2020-11-18] MEDS: FOLIC ACID 1 MG TABLET (FP) PO SCH (09:19)
[2020-11-18] MEDS: APIXABAN 2.5 MG TABLET PO SCH ×2 (09:19→21:15)
[2020-11-18] MEDS: CITALOPRAM HYDROBROMIDE 20 MG TABLET PO SCH (09:19)
[2020-11-18] MEDS: ERTAPENEM SODIUM 0.5 GM in SODIUM CHLORIDE 50 ML IVPB SCH (10:41)
[2020-11-18] MEDS: ATORVASTATIN CA 10 MG TABLET (FP) PO SCH (21:15)
[2020-11-19] MEDS: ERTAPENEM SODIUM 0.5 GM in SODIUM CHLORIDE 50 ML IVPB SCH (09:13)
[2020-11-19] MEDS: FOLIC ACID 1 MG TABLET (FP) PO SCH (09:13)
[2020-11-19] MEDS: METOPROLOL TARTRATE 25 MG TABLET (FP) PO SCH ×2 (09:14→21:23)
[2020-11-19] MEDS: MULTIVITAMINS (DAILY MVI) TABLET (FP) PO SCH (09:14)
[2020-11-19] MEDS: CITALOPRAM HYDROBROMIDE 20 MG TABLET PO SCH (09:14)
[2020-11-19] MEDS: APIXABAN 2.5 MG TABLET PO SCH ×2 (09:14→21:23)
[2020-11-19] MEDS: DIGOXIN 0.125 MG TABLET (FP) PO SCH (10:36)
[2020-11-19 18:29] LABS: URINE APPEARANCE TURBID; URINE BILIRUBIN SMALL (NEGATIVE); URINE COLOR RED; URINE GLUCOSE (UA) NEGATIVE (NEGATIVE); URINE KETONE NEGATIVE (NEGATIVE)
[2020-11-19 18:30] LABS: URINE LEUK ESTERASE 4+ (NEGATIVE); URINE NITRITE POSITIVE (NEGATIVE); URINE PROTEIN 100 (NEGATIVE); URINE UROBILINOGEN 0.2 mg/dL (0.2-1.0)
[2020-11-19 19:31] LABS: URINE BACTERIA MODERATE /hpf (NEGATIVE); URINE RBC >100 /hpf (0-4); URINE WBC >100 (NEGATIVE)
[2020-11-19] MEDS: ATORVASTATIN CA 10 MG TABLET (FP) PO SCH (21:23)
[2020-11-20 01:02] VITALS: BMI 23.0
[2020-11-20 08:05] LABS: BASO % 0.7 % (0-2.0); EOS % 4.3 % (0-4.5); HEMATOCRIT 28.5 % (32.4-45.2); HEMOGLOBIN 9.2 GM/dL (10.7-15.3); LYMPH % 20.3 % (8-40); MCH 29.3 pg (25.7-33.7); MCHC 32.1 g/dl (32.0-36.0); MEAN CELL VOLUME 91.2 fl (80-96); MEAN PLT VOLUME 7.6 fl (7.5-11.1); MONO % 12.2 % (3.8-10.2); NEUT % 62.5 % (42.8-82.8); PLATELET COUNT 340 10^3/uL (134-434); RBC 3.13 M/mm3 (3.60-5.2); RDW 14.5 % (11.6-15.6); WHITE BLOOD COUNT 8.4 K/mm3 (4.0-10.0)
[2020-11-20 08:26] LABS: ALBUMIN 2.1 g/dl (3.4-5.0); CALCIUM 8.5 mg/dL (8.5-10.1)
[2020-11-20 08:27] LABS: BLOOD UREA NITROGEN 23.3 mg/dL (7-18)
[2020-11-20 08:30] LABS: BILIRUBIN,TOTAL 0.5 mg/dL (0.2-1); CREATININE 1.4 mg/dL (0.55-1.3)
[2020-11-20 08:31] LABS: TOT PROT 5.4 g/dl (6.4-8.2)
[2020-11-20] MEDS: ERTAPENEM SODIUM 0.5 GM in SODIUM CHLORIDE 50 ML IVPB SCH (10:31)
[2020-11-20] MEDS: FOLIC ACID 1 MG TABLET (FP) PO SCH (10:31)
[2020-11-20] MEDS: APIXABAN 2.5 MG TABLET PO SCH ×2 (10:31→21:20)
[2020-11-20] MEDS: METOPROLOL TARTRATE 25 MG TABLET (FP) PO SCH ×2 (10:31→21:20)
[2020-11-20] MEDS: CITALOPRAM HYDROBROMIDE 20 MG TABLET PO SCH (10:31)
[2020-11-20] MEDS: MULTIVITAMINS (DAILY MVI) TABLET (FP) PO SCH (10:31)
[2020-11-20] MEDS: ATORVASTATIN CA 10 MG TABLET (FP) PO SCH (21:20)
[2020-11-20 23:25] VITALS: BP 101/51; PULSE 77; TEMP 98.4
== END 2020-11-20 23:05 | DRG 522 ==
LOC: JER 22:19 → JERBED 11-12 05:20 → J4W 11-12 14:25
PROVIDERS: ADMIT Internal Medicine; ATTEND Family Medicine
PROC: 0SRS0J9 Replacement of Left Hip Joint, Femoral Surface with Synthetic Substitute, Cemented, Open Approach (ICD-10-PCS; principal; 2020-11-15 08:00)
DX: S72.002A Fracture of unspecified part of neck of left femur, initial encounter for closed fracture (principal); M25.062 Hemarthrosis, left knee; N39.0 Urinary tract infection, site not specified; N17.9 Acute kidney failure, unspecified; I10 Essential (primary) hypertension; E78.5 Hyperlipidemia, unspecified; F03.90 Unspecified dementia, unspecified severity, without behavioral disturbance, psychotic disturbance, mood disturbance, and anxiety; D64.9 Anemia, unspecified; F41.9 Anxiety disorder, unspecified; R50.82 Postprocedural fever; I48.0 Paroxysmal atrial fibrillation; R29.6 Repeated falls; G20 Parkinson's disease; B96.1 Klebsiella pneumoniae [K. pneumoniae] as the cause of diseases classified elsewhere; S80.02XA Contusion of left knee, initial encounter; W18.30XA Fall on same level, unspecified, initial encounter; Y92.092 Bedroom in other non-institutional residence as the place of occurrence of the external cause; R31.9 Hematuria, unspecified
CPT/HCPCS: 36415; 70450-TC; 71045-TC-FY; 72125-TC; 72192-TC; 73502-TC-LT-FY; 73552-TC-LT-FY; 73562-TC-LT-FY; 80048; 80053; 80061; 80162; 81003; 82550; 83721; 83735; 83880; 84100; 84484; 85025; 85610; 85730; 86850; 86870; 86900; 86901; 86902; 87040; 87081; 87086; 87186; 88305-TC; 88311-TC; 93005; 93010; 93880-TC; 94760; 97116-GP; 97162-GP; 99285-25; C9803; J0131; U0003; U0005

== ENCOUNTER 2021-01-27 14:01 | Emergency (ER) | payer OTHER, MEDICARE ==
[2021-01-27 14:13] VITALS: BP 115/47; PULSE 82; TEMP 99; BMI 24.0
[2021-01-27 15:34] LABS: BASO % 1.6 % (0-2.0); HEMATOCRIT 27.4 % (32.4-45.2); HEMOGLOBIN 8.8 GM/dl (10.7-15.3); LYMPH % 20.3 % (8-40); MCHC 32.1 g/dl (32.0-36.0); MEAN CELL VOLUME 90.2 fl (80-96); MEAN PLT VOLUME 7.6 fl (7.5-11.1); MONO % 10.5 % (3.8-10.2); NEUT % 65.6 % (42.8-82.8); PLATELET COUNT 210 10^3/uL (134-434); RBC 3.04 M/mm3 (3.60-5.2); RDW 15.9 % (11.6-15.6)
[2021-01-27 15:42] LABS: ALBUMIN 2.8 g/dl (3.4-5.0); BILIRUBIN,TOTAL 0.3 mg/dl (0.2-1); CALCIUM 8.1 mg/dl (8.5-10); CREATININE 1.6 mg/dl (0.55-1.3); TOT PROT 5.8 g/dl (6.4-8.2)
[2021-01-27] MEDS ORDERED: CEFPODOXIME PROXETIL 100 MG TABLET PO ONE (16:46)
== END 2021-01-27 17:21 | disposition home or self-care (01) ==
LOC: FER 14:01
DX: N30.91 Cystitis, unspecified with hematuria (principal)
CPT/HCPCS: 36415; 80053; 81003; 81015; 82272; 85025; 86850; 86870; 86900; 86901; 86902; 87086; 87186; 99283-25

== ENCOUNTER 2021-04-20 14:43 | Emergency (ER) | payer OTHER, MEDICARE ==
[2021-04-20 15:50] VITALS: BP 137/72; PULSE 74; TEMP 98.3; BMI 21.4
[2021-04-20 16:59] LABS: ALBUMIN 3.4 g/dl (3.4-5.0); BILIRUBIN,TOTAL 0.5 mg/dl (0.2-1); CALCIUM 8.5 mg/dl (8.5-10); CREATININE 1.6 mg/dl (0.55-1.3)
[2021-04-20 18:04] LABS: BASO % 0.3 % (0-2.0); EOS % 1.9 % (0-4.5); HEMATOCRIT 31.6 % (32.4-45.2); HEMOGLOBIN 10.3 GM/dL (10.7-15.3); LYMPH % 20.7 % (8-40); MCH 28.7 pg (25.7-33.7); MCHC 32.5 g/dl (32.0-36.0); MEAN CELL VOLUME 88.2 fl (80-96); MEAN PLT VOLUME 7.4 fl (7.5-11.1); MONO % 11.1 % (3.8-10.2); PLATELET COUNT 281 10^3/uL (134-434); RBC 3.59 M/mm3 (3.60-5.2); RDW 14.7 % (11.6-15.6); WHITE BLOOD COUNT 7.9 K/mm3 (4.0-10.0)
== END 2021-04-20 17:30 | disposition home or self-care (01) ==
LOC: FER 14:43
DX: N30.01 Acute cystitis with hematuria (principal)
CPT/HCPCS: 36415; 80053; 81003; 81015; 85025; 87086; 87186; 99283-25; C9803; U0003; U0005

== ENCOUNTER 2021-04-23 14:34 | Inpatient (IN) | payer OTHER, MEDICARE ==
[2021-04-23] MEDS ORDERED: MEROPENEM 1 GM in DEXTROSE 5%-WATER 100 ML IVPB ONE (15:29)
[2021-04-23 16:21] LABS: EPITHELIAL CELLS FEW /hpf
[2021-04-23 16:24] LABS: BILIRUBIN,TOTAL 0.4 mg/dl (0.2-1); CALCIUM 8.6 mg/dl (8.5-10); CREATININE 1.8 mg/dl (0.55-1.3); TOT PROT 6.2 g/dl (6.4-8.2)
[2021-04-23 17:22] LABS: BASO % 0.5 % (0-2.0); EOS % 2.7 % (0-4.5); HEMATOCRIT 30.8 % (32.4-45.2); HEMOGLOBIN 9.9 GM/dL (10.7-15.3); MCH 28.3 pg (25.7-33.7); MCHC 32.2 g/dl (32.0-36.0); MEAN CELL VOLUME 87.7 fl (80-96); MEAN PLT VOLUME 7.4 fl (7.5-11.1); MONO % 9.7 % (3.8-10.2); NEUT % 67.1 % (42.8-82.8); PLATELET COUNT 247 10^3/uL (134-434); RBC 3.51 M/mm3 (3.60-5.2); RDW 14.7 % (11.6-15.6); WHITE BLOOD COUNT 5.8 K/mm3 (4.0-10.0)
[2021-04-23] MEDS: APIXABAN 2.5 MG TABLET PO SCH (21:55)
[2021-04-23] MEDS: ATORVASTATIN CA 10 MG TABLET (FP) PO SCH (21:55)
[2021-04-23] MEDS: CARBIDOPA/LEVODOPA 25/100 TABLET (FP) PO SCH (21:55)
[2021-04-23] MEDS: METOPROLOL TARTRATE 25 MG TABLET (FP) PO SCH (21:55)
[2021-04-23 23:02] VITALS: BMI 23.2
[2021-04-24] MEDS: CARBIDOPA/LEVODOPA 25/100 TABLET (FP) PO SCH ×3 (06:05→22:17)
[2021-04-24] MEDS ORDERED: ERTAPENEM SODIUM 0.5 GM in SODIUM CHLORIDE 50 ML IVPB SCH (10:00)
[2021-04-24] MEDS ORDERED: DIGOXIN 0.125 MG TABLET PO SCH (10:00)
[2021-04-24] MEDS: APIXABAN 2.5 MG TABLET PO SCH ×2 (10:08→22:17)
[2021-04-24] MEDS: PANTOPRAZOLE 20 MG TABLET PO SCH (10:08)
[2021-04-24] MEDS: METOPROLOL TARTRATE 25 MG TABLET (FP) PO SCH ×2 (10:09→22:17)
[2021-04-24] MEDS: ERTAPENEM SODIUM 0.5 GM in SODIUM CHLORIDE 50 ML IVPB SCH (10:29)
[2021-04-24] MEDS: ATORVASTATIN CA 10 MG TABLET (FP) PO SCH (22:17)
[2021-04-25] MEDS: CARBIDOPA/LEVODOPA 25/100 TABLET (FP) PO SCH ×3 (05:32→21:16)
[2021-04-25 09:14] LABS: ALBUMIN 2.6 g/dl (3.4-5.0); BILIRUBIN,TOTAL 0.3 mg/dl (0.2-1); CALCIUM 8.6 mg/dl (8.5-10); CREATININE 1.7 mg/dl (0.55-1.3); TOT PROT 5.7 g/dl (6.4-8.2)
[2021-04-25 09:28] LABS: BASO % 0.6 % (0-2.0); EOS % 3.7 % (0-4.5); HEMATOCRIT 28.6 % (32.4-45.2); HEMOGLOBIN 9.4 GM/dL (10.7-15.3); LYMPH % 34.8 % (8-40); MCH 28.8 pg (25.7-33.7); MCHC 33.1 g/dl (32.0-36.0); MEAN PLT VOLUME 7.6 fl (7.5-11.1); MONO % 9.2 % (3.8-10.2); NEUT % 51.7 % (42.8-82.8); PLATELET COUNT 232 10^3/uL (134-434); RBC 3.29 M/mm3 (3.60-5.2); RDW 14.6 % (11.6-15.6); WHITE BLOOD COUNT 5.5 K/mm3 (4.0-10.0)
[2021-04-25] MEDS: PANTOPRAZOLE 20 MG TABLET PO SCH (10:54)
[2021-04-25] MEDS: APIXABAN 2.5 MG TABLET PO SCH ×2 (10:54→21:16)
[2021-04-25] MEDS: METOPROLOL TARTRATE 25 MG TABLET (FP) PO SCH ×3 (10:54→21:22)
[2021-04-25] MEDS: ERTAPENEM SODIUM 0.5 GM in SODIUM CHLORIDE 50 ML IVPB SCH (11:30)
[2021-04-25 13:01] LABS: ALBUMIN 3.2 g/dl (3.4-5.0); BILIRUBIN,TOTAL 0.5 mg/dl (0.2-1); CREATININE 1.6 mg/dl (0.55-1.3); TOT PROT 6.9 g/dl (6.4-8.2)
[2021-04-25 13:13] LABS: BASO % 0.4 % (0-2.0); EOS % 1.3 % (0-4.5); HEMATOCRIT 32.6 % (32.4-45.2); HEMOGLOBIN 10.9 GM/dL (10.7-15.3); LYMPH % 22.6 % (8-40); MCHC 33.4 g/dl (32.0-36.0); MEAN PLT VOLUME 7.3 fl (7.5-11.1); MONO % 5.6 % (3.8-10.2); NEUT % 70.1 % (42.8-82.8); PLATELET COUNT 296 10^3/uL (134-434); RBC 3.74 M/mm3 (3.60-5.2); RDW 14.7 % (11.6-15.6); WHITE BLOOD COUNT 5.8 K/mm3 (4.0-10.0)
[2021-04-25] MEDS: ATORVASTATIN CA 10 MG TABLET (FP) PO SCH (21:16)
[2021-04-26] MEDS: CARBIDOPA/LEVODOPA 25/100 TABLET (FP) PO SCH ×3 (06:54→21:44)
[2021-04-26 08:05] LABS: ALBUMIN 2.8 g/dl (3.4-5.0); BILIRUBIN,TOTAL 0.4 mg/dl (0.2-1); CALCIUM 8.9 mg/dl (8.5-10); CREATININE 1.5 mg/dl (0.55-1.3); TOT PROT 5.8 g/dl (6.4-8.2)
[2021-04-26] MEDS ORDERED: ERTAPENEM SODIUM 0.5 GM in SODIUM CHLORIDE 50 ML IVPB SCH (08:57)
[2021-04-26 09:20] LABS: BASO % 0.6 % (0-2.0); EOS % 3.7 % (0-4.5); HEMATOCRIT 30.2 % (32.4-45.2); LYMPH % 26.8 % (8-40); MCH 28.8 pg (25.7-33.7); MCHC 32.9 g/dl (32.0-36.0); MEAN CELL VOLUME 87.4 fl (80-96); MEAN PLT VOLUME 7.6 fl (7.5-11.1); MONO % 7.7 % (3.8-10.2); NEUT % 61.2 % (42.8-82.8); PLATELET COUNT 260 10^3/uL (134-434); RBC 3.46 M/mm3 (3.60-5.2); RDW 14.6 % (11.6-15.6); WHITE BLOOD COUNT 5.6 K/mm3 (4.0-10.0)
[2021-04-26] MEDS: APIXABAN 2.5 MG TABLET PO SCH ×2 (09:32→21:44)
[2021-04-26] MEDS: PANTOPRAZOLE 20 MG TABLET PO SCH (09:32)
[2021-04-26] MEDS: METOPROLOL TARTRATE 25 MG TABLET (FP) PO SCH ×2 (09:32→21:44)
[2021-04-26] MEDS: ERTAPENEM SODIUM 0.5 GM in SODIUM CHLORIDE 50 ML IVPB SCH (10:01)
[2021-04-26] MEDS ORDERED: clonazePAM 0.5 MG TABLET PO PRN (11:50)
[2021-04-26] MEDS: ATORVASTATIN CA 10 MG TABLET (FP) PO SCH (21:44)
[2021-04-27] MEDS: CARBIDOPA/LEVODOPA 25/100 TABLET (FP) PO SCH ×2 (06:18→14:10)
[2021-04-27] MEDS: APIXABAN 2.5 MG TABLET PO SCH (11:01)
[2021-04-27] MEDS: METOPROLOL TARTRATE 25 MG TABLET (FP) PO SCH (11:01)
[2021-04-27] MEDS: ERTAPENEM SODIUM 0.5 GM in SODIUM CHLORIDE 50 ML IVPB SCH (11:01)
[2021-04-27] MEDS: PANTOPRAZOLE 20 MG TABLET PO SCH (11:01)
[2021-04-27 14:01] VITALS: BP 116/88; PULSE 54; TEMP 99.1
== END 2021-04-27 16:52 | disposition home health service (06) | DRG 690 ==
LOC: FER 14:34 → OBSVTOIN 16:38 → FM/S 16:38 → UNDOADMOB 20:55
PROVIDERS: ADMIT Internal Medicine; ATTEND Family Medicine
PROC: 02HV33Z Insertion of Infusion Device into Superior Vena Cava, Percutaneous Approach (ICD-10-PCS; principal; 2021-04-27)
PROC: B548ZZA Ultrasonography of Superior Vena Cava, Guidance (ICD-10-PCS; 2021-04-27)
DX: N13.6 Pyonephrosis (principal); N17.9 Acute kidney failure, unspecified; N02.9 Recurrent and persistent hematuria with unspecified morphologic changes; F03.90 Unspecified dementia, unspecified severity, without behavioral disturbance, psychotic disturbance, mood disturbance, and anxiety; G20 Parkinson's disease; F02.80 Dementia in other diseases classified elsewhere, unspecified severity, without behavioral disturbance, psychotic disturbance, mood disturbance, and anxiety; I48.91 Unspecified atrial fibrillation; Z79.01 Long term (current) use of anticoagulants; I10 Essential (primary) hypertension; E78.5 Hyperlipidemia, unspecified; D64.9 Anemia, unspecified; F41.8 Other specified anxiety disorders; K80.20 Calculus of gallbladder without cholecystitis without obstruction
CPT/HCPCS: 36415; 36569; 74176-TC; 77001-TC-FY; 80053; 81003; 81015; 85025; 87040; 87086; 87186; 93005; 99283-25; 99285-25; C1751; C9803; U0003; U0005

== ENCOUNTER 2021-05-24 18:56 | Inpatient (IN) | payer OTHER, MEDICARE ==
[2021-05-24 21:35] LABS: HEMATOCRIT 33.5 % (32.4-45.2); HEMOGLOBIN 10.9 GM/dL (10.7-15.3); MCH 28.3 pg (25.7-33.7); MCHC 32.5 g/dl (32.0-36.0); MEAN PLT VOLUME 8.3 fl (7.5-11.1); PLATELET COUNT 190 10^3/uL (134-434); RBC 3.85 M/mm3 (3.60-5.2); RDW 15.2 % (11.6-15.6); WHITE BLOOD COUNT 7.1 K/mm3 (4.0-10.0)
[2021-05-24 22:06] LABS: CHLORIDE 106 mmol/L (98-107); SODIUM 140 mmol/L (136-145)
[2021-05-24 22:08] LABS: ALBUMIN 3.2 g/dl (3.4-5.0); ANION GAP 9 MMOL/L (8-16); BLOOD UREA NITROGEN 28.6 mg/dL (7-18); CALCIUM 9.1 mg/dL (8.5-10.1); CO2 26 mmol/L (21-32); GLUCOSE,RANDOM 120 mg/dL (74-106)
[2021-05-24 22:12] LABS: CREATININE 1.9 mg/dL (0.55-1.3); SGOT/AST 21 U/L (15-37); SGPT/ALT 10 U/L (13-61)
[2021-05-24 22:13] LABS: BILIRUBIN,TOTAL 0.5 mg/dL (0.2-1); TOT PROT 6.8 g/dl (6.4-8.2)
[2021-05-24 22:14] LABS: ALK PHOS 65 U/L (45-117)
[2021-05-24] MEDS ORDERED: SODIUM CHLORIDE 0.9% 500 ML INFUS.BAG IV ONE (22:14)
[2021-05-24 22:39] LABS: URINE APPEARANCE TURBID; URINE COLOR YELLOW; URINE GLUCOSE (UA) NEGATIVE (NEGATIVE)
[2021-05-24 22:40] LABS: URINE BILIRUBIN NEGATIVE (NEGATIVE); URINE KETONE NEGATIVE (NEGATIVE); URINE LEUK ESTERASE 3+ (NEGATIVE); URINE NITRITE NEGATIVE (NEGATIVE); URINE PROTEIN 3+ (NEGATIVE); URINE UROBILINOGEN 0.2 mg/dL (0.2-1.0)
[2021-05-24 22:41] LABS: EPI CELLS 112 /uL (0-25.1); HYALINE CASTS FEW /uL (0-3.1); URINE BACTERIA 6207 /uL (0-1359); URINE RBC 274 /uL (0-23.9); URINE WBC 18225 /uL (0-25.8)
[2021-05-24] MEDS ORDERED: APIXABAN 2.5 MG TABLET ONE (23:39)
[2021-05-24] MEDS: APIXABAN 2.5 MG TABLET PO SCH (23:44)
[2021-05-24] MEDS ORDERED: ACETAMINOPHEN 500 MG TABLET (FP) PO ONE (23:57)
[2021-05-25] MEDS ORDERED: ACETAMINOPHEN 325 MG TABLET (FP) ONE (00:16)
[2021-05-25] MEDS ORDERED: CARBIDOPA/LEVODOPA 25/100 TABLET (FP) ONE (05:40)
[2021-05-25] MEDS: CARBIDOPA/LEVODOPA 25/100 TABLET (FP) PO SCH ×3 (06:05→22:13)
[2021-05-25 07:57] LABS: BASO % 0.4 % (0-2.0); EOS % 2.4 % (0-4.5); HEMATOCRIT 31.6 % (32.4-45.2); HEMOGLOBIN 9.9 GM/dL (10.7-15.3); LYMPH % 26.2 % (8-40); MCH 27.8 pg (25.7-33.7); MCHC 31.2 g/dl (32.0-36.0); MEAN CELL VOLUME 89.1 fl (80-96); MEAN PLT VOLUME 8.7 fl (7.5-11.1); MONO % 17.7 % (3.8-10.2); NEUT % 53.3 % (42.8-82.8); PLATELET COUNT 168 10^3/uL (134-434); RBC 3.55 M/mm3 (3.60-5.2); RDW 15.1 % (11.6-15.6); WHITE BLOOD COUNT 4.5 K/mm3 (4.0-10.0)
[2021-05-25 08:29] LABS: BLOOD UREA NITROGEN 30.3 mg/dl (7-18); CREATININE 1.8 mg/dl (0.55-1.3)
[2021-05-25 08:30] LABS: ALBUMIN 2.9 g/dl (3.4-5.0); BILIRUBIN,TOTAL 0.4 mg/dl (0.2-1); CALCIUM 8.5 mg/dl (8.5-10); TOT PROT 6.1 g/dl (6.4-8.2)
[2021-05-25] MEDS ORDERED: ASCORBIC ACID 500 MG TABLET (FP) ONE (09:07)
[2021-05-25] MEDS ORDERED: DIGOXIN 0.125 MG TABLET ONE (09:07)
[2021-05-25] MEDS ORDERED: MULTIVITAMINS (DAILY MVI) TABLET (FP) ONE (09:07)
[2021-05-25] MEDS ORDERED: FOLIC ACID 1 MG TABLET (FP) ONE (09:08)
[2021-05-25] MEDS ORDERED: PANTOPRAZOLE 20 MG TABLET PO ONE (09:08)
[2021-05-25] MEDS ORDERED: FERROUS SO4 325 MG TABLET (FP) ONE (09:09)
[2021-05-25] MEDS ORDERED: APIXABAN 2.5 MG TABLET ONE (09:09)
[2021-05-25] MEDS: PANTOPRAZOLE 20 MG TABLET PO SCH (09:26)
[2021-05-25] MEDS: ASCORBIC ACID 500 MG TABLET (FP) PO SCH (09:26)
[2021-05-25] MEDS: FERROUS SO4 325 MG TABLET (FP) PO SCH (09:26)
[2021-05-25] MEDS: MULTIVITAMINS (DAILY MVI) TABLET (FP) PO SCH (09:26)
[2021-05-25] MEDS: APIXABAN 2.5 MG TABLET PO SCH ×2 (09:26→22:13)
[2021-05-25] MEDS: METOPROLOL TARTRATE 25 MG TABLET (FP) PO SCH ×3 (09:26→22:13)
[2021-05-25] MEDS: DIGOXIN 0.125 MG TABLET PO SCH (09:26)
[2021-05-25] MEDS: CITALOPRAM HYDROBROMIDE 20 MG TABLET PO SCH (09:26)
[2021-05-25] MEDS: FOLIC ACID 1 MG TABLET (FP) PO SCH (09:26)
[2021-05-25] MEDS ORDERED: ERTAPENEM SODIUM 0.5 GM in SODIUM CHLORIDE 50 ML IVPB SCH (10:00)
[2021-05-25] MEDS: ERTAPENEM SODIUM 0.5 GM in SODIUM CHLORIDE 50 ML IVPB SCH (16:58)
[2021-05-25 17:33] VITALS: BMI 23.5
[2021-05-25] MEDS: ATORVASTATIN CA 10 MG TABLET (FP) PO SCH (22:13)
[2021-05-26] MEDS: CARBIDOPA/LEVODOPA 25/100 TABLET (FP) PO SCH ×3 (06:14→21:22)
[2021-05-26] MEDS: METOPROLOL TARTRATE 25 MG TABLET (FP) PO SCH ×2 (10:14→21:22)
[2021-05-26] MEDS: DIGOXIN 0.125 MG TABLET PO SCH (10:14)
[2021-05-26] MEDS: CITALOPRAM HYDROBROMIDE 20 MG TABLET PO SCH (10:14)
[2021-05-26] MEDS: ASCORBIC ACID 500 MG TABLET (FP) PO SCH (10:14)
[2021-05-26] MEDS: FERROUS SO4 325 MG TABLET (FP) PO SCH (10:15)
[2021-05-26] MEDS: PANTOPRAZOLE 20 MG TABLET PO SCH (10:15)
[2021-05-26] MEDS: APIXABAN 2.5 MG TABLET PO SCH ×2 (10:15→21:22)
[2021-05-26] MEDS: MULTIVITAMINS (DAILY MVI) TABLET (FP) PO SCH (10:15)
[2021-05-26] MEDS: FOLIC ACID 1 MG TABLET (FP) PO SCH (10:16)
[2021-05-26] MEDS: ERTAPENEM SODIUM 0.5 GM in SODIUM CHLORIDE 50 ML IVPB SCH (11:14)
[2021-05-26] MEDS: ATORVASTATIN CA 10 MG TABLET (FP) PO SCH (21:22)
[2021-05-27] MEDS: CARBIDOPA/LEVODOPA 25/100 TABLET (FP) PO SCH ×3 (05:46→21:59)
[2021-05-27] MEDS: METOPROLOL TARTRATE 25 MG TABLET (FP) PO SCH ×2 (09:45→21:59)
[2021-05-27] MEDS: ASCORBIC ACID 500 MG TABLET (FP) PO SCH (09:46)
[2021-05-27] MEDS: FERROUS SO4 325 MG TABLET (FP) PO SCH (09:46)
[2021-05-27] MEDS: MULTIVITAMINS (DAILY MVI) TABLET (FP) PO SCH (09:46)
[2021-05-27] MEDS: CITALOPRAM HYDROBROMIDE 20 MG TABLET PO SCH (09:46)
[2021-05-27] MEDS: DIGOXIN 0.125 MG TABLET PO SCH (09:47)
[2021-05-27] MEDS: FOLIC ACID 1 MG TABLET (FP) PO SCH (09:47)
[2021-05-27] MEDS: PANTOPRAZOLE 20 MG TABLET PO SCH (09:47)
[2021-05-27] MEDS: ERTAPENEM SODIUM 0.5 GM in SODIUM CHLORIDE 50 ML IVPB SCH (09:47)
[2021-05-27] MEDS: APIXABAN 2.5 MG TABLET PO SCH ×2 (09:47→21:59)
[2021-05-27 11:02] LABS: BASO % 0.7 % (0-2.0); EOS % 5.3 % (0-4.5); HEMATOCRIT 32.2 % (32.4-45.2); HEMOGLOBIN 10.1 GM/dL (10.7-15.3); LYMPH % 23.6 % (8-40); MCH 27.7 pg (25.7-33.7); MCHC 31.4 g/dl (32.0-36.0); MEAN CELL VOLUME 88.1 fl (80-96); MEAN PLT VOLUME 8.3 fl (7.5-11.1); MONO % 9.2 % (3.8-10.2); NEUT % 61.2 % (42.8-82.8); PLATELET COUNT 200 10^3/uL (134-434); RBC 3.65 M/mm3 (3.60-5.2); RDW 15.4 % (11.6-15.6); WHITE BLOOD COUNT 4.3 K/mm3 (4.0-10.0)
[2021-05-27 11:45] LABS: ALBUMIN 2.7 g/dl (3.4-5.0)
[2021-05-27 11:47] LABS: CALCIUM 8.9 mg/dL (8.5-10.1)
[2021-05-27 11:48] LABS: CREATININE 1.7 mg/dL (0.55-1.3)
[2021-05-27 11:49] LABS: BILIRUBIN,TOTAL 0.2 mg/dL (0.2-1); TOT PROT 6.2 g/dl (6.4-8.2)
[2021-05-27] MEDS: ATORVASTATIN CA 10 MG TABLET (FP) PO SCH (21:59)
[2021-05-28] MEDS: CARBIDOPA/LEVODOPA 25/100 TABLET (FP) PO SCH ×3 (05:06→21:09)
[2021-05-28] MEDS: FERROUS SO4 325 MG TABLET (FP) PO SCH (10:25)
[2021-05-28] MEDS: PANTOPRAZOLE 20 MG TABLET PO SCH (10:25)
[2021-05-28] MEDS: ASCORBIC ACID 500 MG TABLET (FP) PO SCH (10:25)
[2021-05-28] MEDS: APIXABAN 2.5 MG TABLET PO SCH ×2 (10:25→21:08)
[2021-05-28] MEDS: MULTIVITAMINS (DAILY MVI) TABLET (FP) PO SCH (10:25)
[2021-05-28] MEDS: ERTAPENEM SODIUM 0.5 GM in SODIUM CHLORIDE 50 ML IVPB SCH (10:26)
[2021-05-28] MEDS: FOLIC ACID 1 MG TABLET (FP) PO SCH (10:26)
[2021-05-28] MEDS: METOPROLOL TARTRATE 25 MG TABLET (FP) PO SCH ×2 (10:26→21:08)
[2021-05-28] MEDS: DIGOXIN 0.125 MG TABLET PO SCH (10:26)
[2021-05-28] MEDS: CITALOPRAM HYDROBROMIDE 20 MG TABLET PO SCH (10:26)
[2021-05-28] MEDS: ATORVASTATIN CA 10 MG TABLET (FP) PO SCH (21:09)
[2021-05-29] MEDS: CARBIDOPA/LEVODOPA 25/100 TABLET (FP) PO SCH ×3 (06:05→21:37)
[2021-05-29 07:49] LABS: BASO % 0.6 % (0-2.0); EOS % 5.6 % (0-4.5); HEMATOCRIT 32.1 % (32.4-45.2); HEMOGLOBIN 10.2 GM/dL (10.7-15.3); MCH 27.8 pg (25.7-33.7); MCHC 31.8 g/dl (32.0-36.0); MEAN CELL VOLUME 87.4 fl (80-96); MEAN PLT VOLUME 7.7 fl (7.5-11.1); MONO % 8.9 % (3.8-10.2); NEUT % 58.9 % (42.8-82.8); PLATELET COUNT 228 10^3/uL (134-434); RBC 3.68 M/mm3 (3.60-5.2); RDW 14.9 % (11.6-15.6); WHITE BLOOD COUNT 4.8 K/mm3 (4.0-10.0)
[2021-05-29 08:12] LABS: CHLORIDE 112 mmol/L (98-107); SODIUM 142 mmol/L (136-145)
[2021-05-29 08:14] LABS: CALCIUM 8.6 mg/dL (8.5-10.1)
[2021-05-29 08:15] LABS: ALBUMIN 2.9 g/dl (3.4-5.0); ANION GAP 6 MMOL/L (8-16); BLOOD UREA NITROGEN 28.5 mg/dL (7-18); CO2 24 mmol/L (21-32); GLUCOSE,RANDOM 90 mg/dL (74-106); MAGNESIUM 1.9 mg/dL (1.8-2.4)
[2021-05-29 08:18] LABS: CREATININE 1.4 mg/dL (0.55-1.3); SGOT/AST 16 U/L (15-37)
[2021-05-29 08:20] LABS: BILIRUBIN,TOTAL 0.3 mg/dL (0.2-1); TOT PROT 6.1 g/dl (6.4-8.2)
[2021-05-29 08:21] LABS: ALK PHOS 59 U/L (45-117)
[2021-05-29 08:22] LABS: SGPT/ALT < 6 U/L (13-61)
[2021-05-29] MEDS: METOPROLOL TARTRATE 25 MG TABLET (FP) PO SCH ×2 (09:36→21:36)
[2021-05-29] MEDS: FERROUS SO4 325 MG TABLET (FP) PO SCH (09:36)
[2021-05-29] MEDS: MULTIVITAMINS (DAILY MVI) TABLET (FP) PO SCH (09:37)
[2021-05-29] MEDS: CITALOPRAM HYDROBROMIDE 20 MG TABLET PO SCH (09:37)
[2021-05-29] MEDS: DIGOXIN 0.125 MG TABLET PO SCH (09:41)
[2021-05-29] MEDS: FOLIC ACID 1 MG TABLET (FP) PO SCH (09:41)
[2021-05-29] MEDS: PANTOPRAZOLE 20 MG TABLET PO SCH (09:41)
[2021-05-29] MEDS: ASCORBIC ACID 500 MG TABLET (FP) PO SCH (09:41)
[2021-05-29] MEDS: APIXABAN 2.5 MG TABLET PO SCH (09:41)
[2021-05-29] MEDS: ERTAPENEM SODIUM 0.5 GM in SODIUM CHLORIDE 50 ML IVPB SCH (10:32)
[2021-05-29] MEDS ORDERED: TAMSULOSIN HCL 0.4 MG CAP PO ONE (13:14)
[2021-05-29] MEDS: ATORVASTATIN CA 10 MG TABLET (FP) PO SCH (21:37)
[2021-05-30] MEDS: CARBIDOPA/LEVODOPA 25/100 TABLET (FP) PO SCH ×3 (06:17→21:38)
[2021-05-30] MEDS: ERTAPENEM SODIUM 0.5 GM in SODIUM CHLORIDE 50 ML IVPB SCH (10:08)
[2021-05-30] MEDS: DIGOXIN 0.125 MG TABLET PO SCH (10:13)
[2021-05-30] MEDS: MULTIVITAMINS (DAILY MVI) TABLET (FP) PO SCH (10:14)
[2021-05-30] MEDS: PANTOPRAZOLE 20 MG TABLET PO SCH (10:14)
[2021-05-30] MEDS: ASCORBIC ACID 500 MG TABLET (FP) PO SCH (10:14)
[2021-05-30] MEDS: CITALOPRAM HYDROBROMIDE 20 MG TABLET PO SCH (10:14)
[2021-05-30] MEDS: METOPROLOL TARTRATE 25 MG TABLET (FP) PO SCH (10:14)
[2021-05-30] MEDS: FOLIC ACID 1 MG TABLET (FP) PO SCH (10:14)
[2021-05-30] MEDS: FERROUS SO4 325 MG TABLET (FP) PO SCH (10:14)
[2021-05-30] MEDS ORDERED: INSULIN (LEVEMIR) 100 UNITS/ML UNITS SQ ONE (17:34)
[2021-05-30] MEDS: ATORVASTATIN CA 10 MG TABLET (FP) PO SCH (21:38)
[2021-05-31] MEDS: METOPROLOL TARTRATE 25 MG TABLET (FP) PO SCH ×3 (01:26→21:14)
[2021-05-31] MEDS: CARBIDOPA/LEVODOPA 25/100 TABLET (FP) PO SCH ×3 (05:34→21:14)
[2021-05-31] MEDS: FOLIC ACID 1 MG TABLET (FP) PO SCH (10:56)
[2021-05-31] MEDS: MULTIVITAMINS (DAILY MVI) TABLET (FP) PO SCH (10:56)
[2021-05-31] MEDS: FERROUS SO4 325 MG TABLET (FP) PO SCH (10:56)
[2021-05-31] MEDS: ASCORBIC ACID 500 MG TABLET (FP) PO SCH (10:57)
[2021-05-31] MEDS: ERTAPENEM SODIUM 0.5 GM in SODIUM CHLORIDE 50 ML IVPB SCH (11:20)
[2021-05-31] MEDS: DIGOXIN 0.125 MG TABLET PO SCH (11:21)
[2021-05-31] MEDS: CITALOPRAM HYDROBROMIDE 20 MG TABLET PO SCH (11:21)
[2021-05-31] MEDS: PANTOPRAZOLE 20 MG TABLET PO SCH (11:36)
[2021-05-31] MEDS ORDERED: clonazePAM 0.5 MG TABLET PO PRN ×2 (13:08→17:09)
[2021-05-31] MEDS ORDERED: clonazePAM 0.5 MG TABLET PO ONE ×2 (13:15→17:09)
[2021-05-31] MEDS ORDERED: PROPOFOL 20 ML ONE (16:05)
[2021-05-31] MEDS ORDERED: ceFAZolin SODIUM 1 GM VIAL ONE (16:21)
[2021-05-31] MEDS ORDERED: IOHEXOL 300 MG/ML INFUS..BTL IV ONE (16:21)
[2021-05-31] MEDS ORDERED: ceFAZolin SODIUM 1 GM VIAL IVPB ONE (16:22)
[2021-05-31] MEDS: ATORVASTATIN CA 10 MG TABLET (FP) PO SCH (21:15)
[2021-05-31] MEDS: clonazePAM 0.5 MG TABLET PO PRN (21:15)
[2021-06-01] MEDS: CARBIDOPA/LEVODOPA 25/100 TABLET (FP) PO SCH ×3 (06:09→21:07)
[2021-06-01] MEDS ORDERED: ERTAPENEM SODIUM 0.5 GM in SODIUM CHLORIDE 50 ML IVPB SCH (10:00)
[2021-06-01] MEDS: CITALOPRAM HYDROBROMIDE 20 MG TABLET PO SCH (10:06)
[2021-06-01] MEDS: PANTOPRAZOLE 20 MG TABLET PO SCH (10:06)
[2021-06-01] MEDS: DIGOXIN 0.125 MG TABLET PO SCH (10:06)
[2021-06-01] MEDS: ERTAPENEM SODIUM 0.5 GM in SODIUM CHLORIDE 50 ML IVPB SCH (10:06)
[2021-06-01] MEDS: METOPROLOL TARTRATE 25 MG TABLET (FP) PO SCH ×2 (10:06→21:06)
[2021-06-01] MEDS: ASCORBIC ACID 500 MG TABLET (FP) PO SCH (10:07)
[2021-06-01] MEDS: FERROUS SO4 325 MG TABLET (FP) PO SCH (10:07)
[2021-06-01] MEDS: FOLIC ACID 1 MG TABLET (FP) PO SCH (10:07)
[2021-06-01] MEDS: MULTIVITAMINS (DAILY MVI) TABLET (FP) PO SCH (10:07)
[2021-06-01 10:36] LABS: HEMATOCRIT 35.4 % (32.4-45.2); HEMOGLOBIN 11.3 GM/dL (10.7-15.3); MCH 27.9 pg (25.7-33.7); MEAN CELL VOLUME 87.3 fl (80-96); PLATELET COUNT 257 10^3/uL (134-434); RBC 4.06 M/mm3 (3.60-5.2); RDW 14.9 % (11.6-15.6); WHITE BLOOD COUNT 7.4 K/mm3 (4.0-10.0)
[2021-06-01 11:03] LABS: ALBUMIN 3.2 g/dl (3.4-5.0); BLOOD UREA NITROGEN 25.3 mg/dL (7-18); MAGNESIUM 1.9 mg/dL (1.8-2.4)
[2021-06-01 11:06] LABS: CREATININE 1.4 mg/dL (0.55-1.3)
[2021-06-01 11:07] LABS: BILIRUBIN,TOTAL 0.5 mg/dL (0.2-1); TOT PROT 6.6 g/dl (6.4-8.2)
[2021-06-01] MEDS: clonazePAM 0.5 MG TABLET PO PRN (21:06)
[2021-06-01] MEDS: APIXABAN 2.5 MG TABLET PO SCH (21:06)
[2021-06-01] MEDS: ATORVASTATIN CA 10 MG TABLET (FP) PO SCH (21:06)
[2021-06-02] MEDS: CARBIDOPA/LEVODOPA 25/100 TABLET (FP) PO SCH ×3 (06:10→22:24)
[2021-06-02] MEDS: FERROUS SO4 325 MG TABLET (FP) PO SCH (10:04)
[2021-06-02] MEDS: CITALOPRAM HYDROBROMIDE 20 MG TABLET PO SCH (10:04)
[2021-06-02] MEDS: MULTIVITAMINS (DAILY MVI) TABLET (FP) PO SCH (10:04)
[2021-06-02] MEDS: PANTOPRAZOLE 20 MG TABLET PO SCH (10:05)
[2021-06-02] MEDS: FOLIC ACID 1 MG TABLET (FP) PO SCH (10:05)
[2021-06-02] MEDS: DIGOXIN 0.125 MG TABLET PO SCH (10:05)
[2021-06-02] MEDS: ASCORBIC ACID 500 MG TABLET (FP) PO SCH (10:05)
[2021-06-02] MEDS: METOPROLOL TARTRATE 25 MG TABLET (FP) PO SCH ×2 (10:05→22:24)
[2021-06-02] MEDS: APIXABAN 2.5 MG TABLET PO SCH ×2 (10:05→22:24)
[2021-06-02] MEDS: ERTAPENEM SODIUM 0.5 GM in SODIUM CHLORIDE 50 ML IVPB SCH (10:06)
[2021-06-02] MEDS: ATORVASTATIN CA 10 MG TABLET (FP) PO SCH (22:24)
[2021-06-03] MEDS: CARBIDOPA/LEVODOPA 25/100 TABLET (FP) PO SCH ×2 (05:39→14:08)
[2021-06-03] MEDS: DIGOXIN 0.125 MG TABLET PO SCH (10:57)
[2021-06-03] MEDS: ASCORBIC ACID 500 MG TABLET (FP) PO SCH (10:57)
[2021-06-03] MEDS: CITALOPRAM HYDROBROMIDE 20 MG TABLET PO SCH (10:57)
[2021-06-03] MEDS: MULTIVITAMINS (DAILY MVI) TABLET (FP) PO SCH (10:58)
[2021-06-03] MEDS: PANTOPRAZOLE 20 MG TABLET PO SCH (10:58)
[2021-06-03] MEDS: METOPROLOL TARTRATE 25 MG TABLET (FP) PO SCH (10:58)
[2021-06-03] MEDS: APIXABAN 2.5 MG TABLET PO SCH (10:58)
[2021-06-03] MEDS: FOLIC ACID 1 MG TABLET (FP) PO SCH (10:59)
[2021-06-03] MEDS: FERROUS SO4 325 MG TABLET (FP) PO SCH (10:59)
[2021-06-03] MEDS: ERTAPENEM SODIUM 0.5 GM in SODIUM CHLORIDE 50 ML IVPB SCH (11:05)
[2021-06-03 14:00] VITALS: BP 118/84; PULSE 64; TEMP 98.2
== END 2021-06-03 14:55 | DRG 661 ==
LOC: JER 18:56 → JERBED 22:45 → J8W 05-25 11:03
PROVIDERS: ADMIT Internal Medicine; ATTEND Family Medicine
PROC: BT1DYZZ Fluoroscopy of Right Kidney, Ureter and Bladder using Other Contrast (ICD-10-PCS; 2021-05-31)
PROC: 0T768DZ Dilation of Right Ureter with Intraluminal Device, Via Natural or Artificial Opening Endoscopic (ICD-10-PCS; principal; 2021-05-31 14:00)
PROC: 0TJB8ZZ Inspection of Bladder, Via Natural or Artificial Opening Endoscopic (ICD-10-PCS; 2021-05-31 14:00)
DX: N13.6 Pyonephrosis (principal); N17.9 Acute kidney failure, unspecified; G20 Parkinson's disease; F02.80 Dementia in other diseases classified elsewhere, unspecified severity, without behavioral disturbance, psychotic disturbance, mood disturbance, and anxiety; I48.91 Unspecified atrial fibrillation; I10 Essential (primary) hypertension; E78.5 Hyperlipidemia, unspecified; D64.9 Anemia, unspecified; F41.9 Anxiety disorder, unspecified; I12.9 Hypertensive chronic kidney disease with stage 1 through stage 4 chronic kidney disease, or unspecified chronic kidney disease; N18.9 Chronic kidney disease, unspecified; Z88.0 Allergy status to penicillin; Z85.038 Personal history of other malignant neoplasm of large intestine; Z85.3 Personal history of malignant neoplasm of breast; Z93.3 Colostomy status
CPT/HCPCS: 36415; 70450-TC; 71045-TC-FY; 76000-TC-FY; 76775-TC; 80053; 80162; 81003; 83735; 84484; 85025; 85027; 87040; 87086; 87186; 93005; 93010; 94760; 97116-GP; 97161-GP; 99285-25; C9803; U0003; U0005